=== PATIENT | male | born 1970 | race Caucasian/White ===

== ENCOUNTER 2018-10-08 17:34 | Inpatient (IN) | payer MEDICARE, OTHER ==
[~2018-10-08] VITALS: Ht 177.8 cm; Wt 59.5 kg
[2018-10-08 18:04] VITALS: BP 156/100
[2018-10-08 18:28] LABS: BASOPHILS % (AUTO) 1.3 % (0.0-2.0); EOSINOPHILS % (AUTO) 2.7 % (0.0-3.0); HEMATOCRIT 47.1 % (42.0-52.0); HEMOGLOBIN 15.6 G/DL (14.2-18.0); LYMPHOCYTES % (AUTO) 20.5 % (20.0-45.0); MEAN CORPUSCULAR VOLUME 82 FL (80-99); MONOCYTES % (AUTO) 6.5 % (1.0-10.0); PLATELET COUNT 164 K/UL (150-450); RED BLOOD COUNT 5.73 M/UL (4.70-6.10); RED CELL DISTRIBUTION WIDTH 14.3 % (11.6-14.8); WHITE BLOOD COUNT 4.3 K/UL (4.8-10.8)
[2018-10-08 18:30] LABS: ANION GAP 8 mmol/L (5-15); BLOOD UREA NITROGEN 34 mg/dL (7-18); CALCIUM 8.9 MG/DL (8.5-10.1); CARBON DIOXIDE 27 MMOL/L (21-32); CHLORIDE 101 MMOL/L (98-107); CREATININE 2.1 MG/DL (0.55-1.30); POTASSIUM 4.9 MMOL/L (3.5-5.1); SODIUM 136 MMOL/L (136-145)
[2018-10-08 18:34] LABS: ALANINE AMINOTRANSFERASE 63 U/L (12-78); ALBUMIN 3.3 G/DL (3.4-5.0); ALBUMIN/GLOBULIN RATIO 0.7 (1.0-2.7); ALKALINE PHOSPHATASE 126 U/L (46-116); ASPARTATE AMINO TRANSFERASE 32 U/L (15-37); BILIRUBIN,TOTAL 0.3 MG/DL (0.2-1.0)
--- NOTE | 2018-10-08 18:51 | Emergency Room Report ---
History of Present Illness General Chief Complaint: Abnormal Labs Source: Medical Record, EMS Present Illness HPI This patient presents from a detention facility. He has a history of chronic osteomyelitis, hypertension, bipolar and diabetes. He presents from a detention facility for elevated blood sugar. There are no other complaints. Patient History Past Medical History: see triage record, DM, HTN Social History: Denies: smoking, alcohol use, drug use Reviewed Nursing Documentation: PMH: Agreed; PSxH: Agreed Nursing Documentation-PMH Hx Hypertension: Yes Hx Diabetes: Yes History Of Psychiatric Problem: Yes - bi-polar Review of Systems All Other Systems: negative except mentioned in HPI Physical Exam Vital Signs Date Time Temp Pulse Resp B/P (MAP) Pulse Ox O2 Delivery O2 Flow Rate FiO2 10/08/18 17:27 98.1 66 18 136/80 98 Room Air Sp02 EP Interpretation: reviewed, normal General Appearance: no apparent distress, alert, GCS 15, non-toxic Head: normocephalic, atraumatic Eyes: bilateral eye normal inspection, bilateral eye PERRL ENT: hearing grossly normal, normal pharynx, no angioedema, normal voice Neck: full range of motion, supple/symm/no masses Respiratory: chest non-tender, lungs clear, normal breath sounds, no respiratory distress, no retraction, no accessory muscle use, speaking full sentences Cardiovascular #1: regular rate, rhythm, no edema Gastrointestinal: normal bowel sounds, non tender, soft, non-distended, no guarding, no rebound Rectal: deferred Musculoskeletal: back normal, gait/station normal, normal range of motion, non- tender 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, oriented x3, responsive, motor strength/tone normal, sensory intact, speech normal Psychiatric: judgement/insight normal, memory normal, mood/affect normal, no suicidal/homicidal ideation Skin: normal color, no rash, warm/dry, well hydrated Lymphatic: no adenopathy Medical Decision Making Diagnostic Impression: Primary Impression: Uncontrolled diabetes mellitus Additional Impression: CAMILLE (acute kidney injury) ER Course This patient has uncontrolled diabetes. Per report from the assisted living facility, the patient has had blood sugars in the 400s over the last 2 days. They have been unable to control it. The patient does admit to dietary indiscretion but states that the food given to him at the assisted living facility is not diabetic friendly. Regardless, the patient has uncontrolled diabetes for the past few days and will be admitted for further evaluation and blood sugar control. Laboratory Tests Test 10/08/18 18:00 White Blood Count 4.3 K/UL (4.8-10.8) L Red Blood Count 5.73 M/UL (4.70-6.10) Hemoglobin 15.6 G/DL (14.2-18.0) Hematocrit 47.1 % (42.0-52.0) Mean Corpuscular Volume 82 FL (80-99) Mean Corpuscular Hemoglobin 27.2 PG (27.0-31.0) Mean Corpuscular Hemoglobin Concent 33.1 G/DL (32.0-36.0) Red Cell Distribution Width 14.3 % (11.6-14.8) Platelet Count 164 K/UL (150-450) Mean Platelet Volume 7.1 FL (6.5-10.1) Neutrophils (%) (Auto) 69.0 % (45.0-75.0) Lymphocytes (%) (Auto) 20.5 % (20.0-45.0) Monocytes (%) (Auto) 6.5 % (1.0-10.0) Eosinophils (%) (Auto) 2.7 % (0.0-3.0) Basophils (%) (Auto) 1.3 % (0.0-2.0) Sodium Level 136 MMOL/L (136-145) Potassium Level 4.9 MMOL/L (3.5-5.1) Chloride Level 101 MMOL/L (98-107) Carbon Dioxide Level 27 MMOL/L (21-32) Anion Gap 8 mmol/L (5-15) Blood Urea Nitrogen 34 mg/dL (7-18) H Creatinine 2.1 MG/DL (0.55-1.30) H Estimate Glomerular Filtration Rate 33.7 mL/min (>60) Glucose Level 370 MG/DL (74-106) H Calcium Level 8.9 MG/DL (8.5-10.1) Magnesium Level 1.9 MG/DL (1.8-2.4) Total Bilirubin 0.3 MG/DL (0.2-1.0) Aspartate Amino Transferase (AST) 32 U/L (15-37) Alanine Aminotransferase (ALT) 63 U/L (12-78) Alkaline Phosphatase 126 U/L (46-116) H Total Protein 8.2 G/DL (6.4-8.2) Albumin 3.3 G/DL (3.4-5.0) L Globulin 4.9 g/dL Albumin/Globulin Ratio 0.7 (1.0-2.7) L Acetone Level Negative (NEGATIVE) EKG Diagnostic Results Rate: normal Rhythm: NSR ST Segments: no acute changes Rhythm Strip Diag. Results EP Interpretation: yes Rate: 60's Rhythm: NSR, no PVC's, no ectopy Last Vital Signs Date Time Temp Pulse Resp B/P (MAP) Pulse Ox O2 Delivery O2 Flow Rate FiO2 10/08/18 18:04 97.8 80 18 156/100 100 Room Air Status: improved Disposition: ADMITTED INPATIENT Condition: Serious Monica Bryson DO Oct 08, 2018 18:51
[2018-10-08 19:30] VITALS: BP 164/98
[2018-10-08 21:00] VITALS: BP 160/90
[2018-10-08] MEDS ORDERED: UNOBMED (21:12)
[2018-10-08 21:43] LABS: APPEARANCE,URINE CLEAR; BILIRUBIN, URINE NEGATIVE (NEGATIVE); COLOR,URINE PALE YELLOW; GLUCOSE, URINE (UA) 4+ (NEGATIVE); KETONES,URINE NEGATIVE (NEGATIVE); LEUKOCYTE ESTERASE ,URINE NEGATIVE (NEGATIVE); NITRITE,URINE NEGATIVE (NEGATIVE); PH,URINE 6 (4.5-8.0); PROTEIN,URINE 2+ (NEGATIVE); UROBILINOGEN,URINE NORMAL MG/DL (0.0-1.0)
[2018-10-08 22:48] VITALS: BP 172/97
[2018-10-08] MEDS ORDERED: Lisinopril 10mg tab ORAL ONE (23:45)
[2018-10-09 02:13] VITALS: BP 159/92
[2018-10-09] MEDS ORDERED: cloNIDine 0.2mg Tab ORAL PRN (02:15)
[2018-10-09] MEDS ORDERED: Morphine Sulfate 4mg/ml Inj (IV/IM USE ONLY) IVP PRN (02:15)
[2018-10-09] MEDS ORDERED: Zolpidem 5mg tab ORAL PRN (02:30)
[2018-10-09] MEDS ORDERED: ZOFRAN4 M1 ORAL (02:42)
[2018-10-09] MEDS ORDERED: NOVOLOG100 UNIT/4 SQ (02:42)
[2018-10-09] MEDS ORDERED: LEXAPRO10 MG ORAL (02:42)
[2018-10-09] MEDS ORDERED: ATORVASTATIN CA10 MG ORAL (02:42)
[2018-10-09] MEDS ORDERED: SEROQUEL50 MG ORAL (02:42)
[2018-10-09] MEDS ORDERED: LEVEMIR100 UNIT/1 SUBQ (02:42)
[2018-10-09] MEDS ORDERED: GABAPENTIN100 MG ORAL (02:46)
[2018-10-09] MEDS: Norco 5mg/325mg tab ORAL PRN (03:17)
[2018-10-09 04:00] VITALS: BP_SYST 126; BP_SYST 85; BP_DIAS 85; BP_DIAS 92
[2018-10-09] MEDS ORDERED: MULTIVITAMINS1 EAC8 ORAL (05:01)
[2018-10-09] MEDS ORDERED: MILK OF MA400 MG/51 ORAL (05:01)
[2018-10-09] MEDS ORDERED: RANITIDINE HCL150 M2 PO (05:01)
[2018-10-09] MEDS ORDERED: LOPERAMIDE2 M1 PO (05:01)
[2018-10-09] MEDS ORDERED: DOCUSATE SODIU100 MG ORAL (05:01)
[2018-10-09] MEDS ORDERED: VITAMIN C250 MG ORAL (05:01)
[2018-10-09] MEDS ORDERED: LIPITOR40 MG ORAL (05:05)
[2018-10-09] MEDS ORDERED: ZOFRAN4 M3 ORAL (05:05)
[2018-10-09] MEDS ORDERED: LISINOPRIL20 MG ORAL (05:05)
[2018-10-09] MEDS ORDERED: NEURONTIN100 MG ORAL (05:07)
[2018-10-09] MEDS ORDERED: SEROQUEL100 MG ORAL (05:07)
[2018-10-09] MEDS ORDERED: Milk of Magnesia 30ml Ud ORAL PRN (05:15)
[2018-10-09 06:24] LABS: BASOPHILS % (AUTO) 0.7 % (0.0-2.0); EOSINOPHILS % (AUTO) 2.7 % (0.0-3.0); HEMATOCRIT 42.7 % (42.0-52.0); HEMOGLOBIN 14.3 G/DL (14.2-18.0); LYMPHOCYTES % (AUTO) 16.8 % (20.0-45.0); MEAN CORPUSCULAR VOLUME 83 FL (80-99); MONOCYTES % (AUTO) 5.3 % (1.0-10.0); NEUTROPHILS % (AUTO) 74.4 % (45.0-75.0); PLATELET COUNT 162 K/UL (150-450); RED BLOOD COUNT 5.17 M/UL (4.70-6.10); RED CELL DISTRIBUTION WIDTH 13.9 % (11.6-14.8); WHITE BLOOD COUNT 6.7 K/UL (4.8-10.8)
[2018-10-09] MEDS: HydrALAZINE 25mg tab ORAL SCH ×3 (06:37→21:20)
[2018-10-09] MEDS: NovoLOG Insulin Flexpen SUBQ SCH ×7 (06:39→21:19)
[2018-10-09 06:50] LABS: ALANINE AMINOTRANSFERASE 55 U/L (12-78); ALBUMIN 2.8 G/DL (3.4-5.0); ALBUMIN/GLOBULIN RATIO 0.7 (1.0-2.7); ALKALINE PHOSPHATASE 109 U/L (46-116); ANION GAP 5 mmol/L (5-15); ASPARTATE AMINO TRANSFERASE 28 U/L (15-37); BILIRUBIN,TOTAL 0.3 MG/DL (0.2-1.0); BLOOD UREA NITROGEN 29 mg/dL (7-18); CALCIUM 8.1 MG/DL (8.5-10.1); CARBON DIOXIDE 28 MMOL/L (21-32); CHLORIDE 104 MMOL/L (98-107); CREATININE 1.8 MG/DL (0.55-1.30); POTASSIUM 5.1 MMOL/L (3.5-5.1); SODIUM 137 MMOL/L (136-145)
[2018-10-09 08:00] VITALS: BP 138/79
[2018-10-09] MEDS: Lisinopril 20mg tab ORAL SCH (08:17)
[2018-10-09] MEDS: Docusate 100mg cap ORAL SCH ×2 (08:17→17:23)
[2018-10-09] MEDS: Multivitamin w/Minerals tab ORAL SCH ×2 (08:18→17:23)
[2018-10-09] MEDS: Enoxaparin 40mg Inj SUBQ SCH ×2 (08:20→08:26)
[2018-10-09] MEDS ORDERED: Ascorbic Acid 500mg tab ORAL SCH (09:00)
[2018-10-09 11:55] VITALS: BP 147/79
--- NOTE | 2018-10-09 13:32 | Consultation ---
Consult Note Assessment/Plan A./ 1) DM foot ulcer left foot 2) Uncontrolled DM HgA1c= 11.2 3) DM neuropathy 4) left partial foot amp - healed 5) Partial right hallux amp - healed P/ 1) Cont current wound care 2) Dietary recs appreciated. Strict glycemic control needed for optimal wound healing 3) ESR, CRP to evaluate for possible OM 4) Cont offloading shoes/boot 5) Will follow Thank you Carlos Sevilla DPM Oct 09, 2018 13:32
[2018-10-09 16:00] VITALS: BP 141/78
--- NOTE | 2018-10-09 17:40 | Cardiology Report ---
APPROVED REPORT EKG Measurement Heart [id number] Normal sinus rhythm Lateral infarct, age undetermined Abnormal ECG
--- NOTE | 2018-10-09 19:49 | History & Physical ---
History and Physical History & Physicial Dictation completed. comment: time of this dictation , does not reflect actual time of the encounter Dexter Haas MD Oct 09, 2018 19:49
--- NOTE | 2018-10-09 19:51 | General Progress Note ---
Assessment/Plan Status: stable Assessment/Plan Full Dictation in progress A/P: 1- DM-2 uncontrolled 2- Non compliance with diet 3- Charcot foot Plan: will optimize insulin regiments Endo consulted Subjective Allergies: Coded Allergies: METFORMIN (Verified Allergy, Unknown, 10/09/18) Vomiting Objective Last 24 Hour Vital Signs Date Time Temp Pulse Resp B/P (MAP) Pulse Ox O2 Delivery O2 Flow Rate FiO2 10/09/18 16:00 97.8 76 19 141/78 (99) 94 10/09/18 13:58 134/82 10/09/18 11:55 97.6 78 20 147/79 (101) 93 10/09/18 08:17 138/79 10/09/18 08:00 97.8 79 20 138/79 (98) 92 10/09/18 07:59 Room Air 10/09/18 06:37 136/76 10/09/18 04:00 98.1 81 18 126/85 (99) 97 10/09/18 03:25 Room Air 10/09/18 02:13 98.2 91 20 159/92 (114) 97 10/08/18 23:42 196/105 10/08/18 22:48 98.2 68 16 172/97 99 Room Air 10/08/18 21:00 97.4 70 15 160/90 96 Room Air Intake and Output 10/08/18 10/09/18 19:00 07:00 Intake Total 6480 ml Balance 6480 ml Intake Oral 480 ml IV Total 6000 ml # Voids 1 Laboratory Tests 10/08/18 21:35: Urine Color Pale yellow, Urine Appearance Clear, Urine pH 6, Urine Specific [place] 1.010, Urine Protein 2+H, Urine Glucose (UA) 4+H, Urine Ketones Negative , Urine Blood Negative, Urine Nitrite Negative, Urine Bilirubin Negative, Urine Urobilinogen Normal, Urine Leukocyte Esterase Negative, Urine RBC 2-4H, Urine WBC 0-2, Urine Squamous Epithelial Cells None, Urine Bacteria Few 10/09/18 05:10: White Blood Count 6.7#, Red Blood Count 5.17, Hemoglobin 14.3, Hematocrit 42.7, Mean Corpuscular Volume 83, Mean Corpuscular Hemoglobin 27.7, Mean Corpuscular Hemoglobin Concent 33.5, Red Cell Distribution Width 13.9, Platelet Count 162, Mean Platelet Volume 6.2L, Neutrophils (%) (Auto) 74.4, Lymphocytes (%) (Auto) 16.8L, Monocytes (%) (Auto) 5.3, Eosinophils (%) (Auto) 2.7, Basophils (%) (Auto ) 0.7, Erythrocyte Sedimentation Rate 24H, Sodium Level 137, Potassium Level 5.1 , Chloride Level 104, Carbon Dioxide Level 28, Anion Gap 5, Blood Urea Nitrogen 29H, Creatinine 1.8H, Estimat Glomerular Filtration Rate 40.3, Glucose Level 369H, Hemoglobin A1c 11.2H, Calcium Level 8.1L, Total Bilirubin 0.3, Aspartate Amino Transf (AST/SGOT) 28, Alanine Aminotransferase (ALT/SGPT) 55, Alkaline Phosphatase 109, Total Protein 6.9, Albumin 2.8L, Globulin 4.1, Albumin/ Globulin Ratio 0.7L 10/09/18 05:20: C-Reactive Protein, Quantitative 1.0H Height (Feet): 5 Height (Inches): 10.00 Weight (Pounds): 131 Dexter Haas MD Oct 09, 2018 19:51
[2018-10-09 20:00] VITALS: BP 102/49
[2018-10-09] MEDS ORDERED: Levemir Flexpen SUBQ SCH ×2 (21:00)
[2018-10-09] MEDS: Atorvastatin 20mg tab ORAL SCH (21:11)
--- NOTE | 2018-10-09 21:30 | Consultation ---
DATE OF CONSULTATION: 10/09/2018 CONSULTING PHYSICIAN: Carlos Soto D.P.M. REQUESTING PHYSICIAN: Dexter Haas M.D. REASON FOR CONSULTATION: Diabetic foot ulcer. HISTORY OF PRESENT ILLNESS: The patient is a 47-year-old male who was admitted to [facility] on October 08, 2018 for hyperglycemia. The patient is known to my service from previous admission to [facility] [place]. The patient is being followed by , wound doctor at his [facility] facility for continued care there. Admits that sugars are out of control and admits to using offloading shoes when ambulating. PAST MEDICAL HISTORY: Significant for uncontrolled diabetes and acute kidney injury. ALLERGIES: He is allergic to metformin. MEDICATIONS: Per MAR and include Lovenox, Neurontin, ascorbic acid, Tylenol, and [place]. FAMILY HISTORY: Noncontributory. SOCIAL HISTORY: Noncontributory. REVIEW OF SYSTEMS: HEENT: The patient denies any headaches, blurred vision, or ringing in the ears. CARDIORESPIRATORY: The patient denies any chest pain or shortness of breath. GENITOURINARY: The patient denies any urgency, frequency, burning upon urination, or hematuria. GASTROINTESTINAL: The patient denies any constipation, diarrhea, or blood in the stool. PHYSICAL EXAMINATION: LOWER EXTREMITY: Vascular, 1+ palpable dorsalis pedis arteries, bilateral and 2+ posterior tibial arteries, bilateral. Feet are equally warm. There is chronic nonpitting edema noted bilaterally. No cyanosis noted to the toes. DERMATOLOGICAL: There is a full-thickness ulceration noted on the plantar aspect of the left foot. No bone or tendon is exposed. No signs of acute infection are noted. Mild serous drainage is noted from the site. Wound base is granular. No periwound erythema is noted. No malodor is noted. No other open wounds are noted. MUSCULOSKELETAL: There is partial lateral amputation noted at the left foot, which is healed. There is also a partial right hallux amputation noted on the right foot, which is healed. Also noted that left foot has rockerbottom position. No other gross deformities are noted. NEUROLOGICAL: Protective threshold is absent. LABORATORY AND DIAGNOSTIC DATA: White blood cell count is 6.7, hemoglobin and hematocrit are 14.3 and 42.7, and platelet count is 162,000. Potassium is 5.1, BUN is 29, and creatinine is 1.8. Hemoglobin A1c is 11.2. Albumin is 2.8. No lower extremity imaging is noted. ASSESSMENT: 1. Diabetic foot ulcer, left foot. 2. Uncontrolled diabetes mellitus with a hemoglobin A1c of 11.2. 3. Diabetic neuropathy. 4. Left partial foot amputation, healed. 5. Partial right hallux amputation, healed. PLAN: 1. Continue wound care as ordered. 2. Dietary Kt appreciated and strict glycemic control as needed for optimal wound healing. 3. We will order a sedimentation rate and CRP to evaluate for possible osteomyelitis. 4. Continue offloading shoes/boot. 5. We will follow during his hospital course. Thank you for the courtesy of this consultation, Dr. Haas. Carlos Soto D.P.M. DR: MARQUISE JOB#: [id number] CC:
--- NOTE | 2018-10-10 02:00 | History and Physical Report ---
DATE OF ADMISSION: 10/08/2018 NOTE: INCOMPLETE DICTATION SOURCE OF INFORMATION: The patient and EMR. HISTORY OF PRESENT ILLNESS: The patient is a 47-year-old male with a history of uncontrolled diabetes with Charcot foot, who was referred from the [facility] facility secondary to uncontrolled diabetes. The patient reportedly is noncompliant with the diet. The patient reportedly had been particularly noncompliant with low sugar diet and had been taking double and at times triple portion diet/meals. Reportedly, the patient had recorded blood sugar number of 470, and therefore had been requested to be transferred to the hospital for the additional evaluation and better optimization of diabetes regimens. SOCIAL HISTORY: The patient denies history of smoking or alcohol abuse. PAST MEDICAL AND SURGICAL HISTORY: Including but not limited to uncontrolled diabetes, hypertension, noncompliance with the diet, bipolar disorder, Charcot foot, tarsometatarsal amputation, chronic kidney disease, and liver disease. FAMILY HISTORY: Reviewed and noncontributory. MEDICATIONS: Current hospital medications including, but not limited to, sliding scale insulin, NovoLog 10 units at mealtime, Lantus. PHYSICAL EXAMINATION: VITAL SIGNS: Blood pressure 135/80, temperature 98.2, pulse oximetry 98% on room air, and respiratory rate 18. HEAD AND NECK: Atraumatic and normocephalic. CHEST: Clear to auscultation. No wheezing. No crackles. HEART: S1 and S2. Regular rate and rhythm. No S3. No S4. ABDOMEN: Soft. No organomegaly. MUSCULOSKELETAL: Positive for Charcot's foot. Positive for stump of the prior tarsometatarsal resections. NEUROLOGIC: The patient is awake, alert, and oriented x3. PSYCHIATRIC: Mood and affect is elated. LABORATORY DATA: Dated reviewed A/P: 1- Hyper Osmolar Non Ketotic Acidosis, secondary to #2 2- Non compliance with medications 3- Charcot Foot 4- HTN 5- Psych Plan: Endo consulted will resume [facility] medications Had detailed conversation with patient regarding Compliance issue Dexter Haas M.D. DR: MIRIAN JOB#: [id number] CC: JOVON
[2018-10-10 04:00] VITALS: BP 141/84
[2018-10-10] MEDS: HydrALAZINE 25mg tab ORAL SCH ×3 (07:00→21:25)
[2018-10-10] MEDS: NovoLOG Insulin Flexpen SUBQ SCH ×7 (07:01→21:30)
[2018-10-10 08:00] VITALS: BP 137/76
[2018-10-10] MEDS: Enoxaparin 40mg Inj SUBQ SCH (09:00)
[2018-10-10] MEDS: Multivitamin w/Minerals tab ORAL SCH ×2 (09:00→18:00)
[2018-10-10] MEDS: Docusate 100mg cap ORAL SCH ×2 (09:00→18:00)
[2018-10-10] MEDS: Lisinopril 20mg tab ORAL SCH (09:09)
[2018-10-10] MEDS: Ascorbic Acid 500mg tab ORAL SCH (09:09)
--- NOTE | 2018-10-10 11:26 | General Progress Note ---
Assessment/Plan Assessment/Plan S: I am ok O: appears comfortable, still non compliant with diet PHYSICAL EXAMINATION: VITAL SIGNS: HEAD AND NECK: Atraumatic and normocephalic. CHEST: Clear to auscultation. No wheezing. No crackles. HEART: S1 and S2. Regular rate and rhythm. No S3. No S4. ABDOMEN: Soft. No organomegaly. MUSCULOSKELETAL: Positive for Charcot's foot. Positive for stump of the prior tarsometatarsal resections.NEUROLOGIC: The patient is awake, alert, and oriented x3. PSYCHIATRIC: Mood and affect is elated. LABORATORY DATA: Dated reviewed A/P: 1- Hyper Osmolar Non Ketotic Acidosis, secondary to #2 2- Non compliance with medications 3- Charcot Foot 4- HTN 5- Psych Plan: Will optimise Insulin regiments. Sub optimal , secondary to his non compliance again, I Had detailed conversation with patient regarding Compliance issue Subjective Allergies: Coded Allergies: METFORMIN (Verified Allergy, Unknown, 10/09/18) Vomiting Objective Last 24 Hour Vital Signs Date Time Temp Pulse Resp B/P (MAP) Pulse Ox O2 Delivery O2 Flow Rate FiO2 10/10/18 09:09 137/76 10/10/18 09:00 Room Air 10/10/18 08:00 98.1 73 21 137/76 (96) 94 10/10/18 07:00 141/84 10/10/18 04:00 98.5 69 18 141/84 (103) 96 10/09/18 21:20 102/49 10/09/18 21:00 Room Air 10/09/18 20:00 98.1 71 18 102/49 (66) 94 10/09/18 16:00 97.8 76 19 141/78 (99) 94 10/09/18 13:58 134/82 10/09/18 11:55 97.6 78 20 147/79 (101) 93 Intake and Output 10/09/18 10/10/18 18:59 06:59 Intake Total 880 ml Balance 880 ml Intake Oral 880 ml # Voids 4 Height (Feet): 5 Height (Inches): 10.00 Weight (Pounds): 131 Dexter Haas MD Oct 10, 2018 11:26
[2018-10-10 12:00] VITALS: BP 148/91
[2018-10-10 12:29] LABS: BASOPHILS % (AUTO) 0.8 % (0.0-2.0); EOSINOPHILS % (AUTO) 2.9 % (0.0-3.0); HEMATOCRIT 44.6 % (42.0-52.0); HEMOGLOBIN 14.3 G/DL (14.2-18.0); LYMPHOCYTES % (AUTO) 23.9 % (20.0-45.0); MEAN CORPUSCULAR VOLUME 82 FL (80-99); MONOCYTES % (AUTO) 6.9 % (1.0-10.0); NEUTROPHILS % (AUTO) 65.5 % (45.0-75.0); PLATELET COUNT 153 K/UL (150-450); RED BLOOD COUNT 5.44 M/UL (4.70-6.10); WHITE BLOOD COUNT 4.9 K/UL (4.8-10.8)
[2018-10-10 12:56] LABS: ALANINE AMINOTRANSFERASE 60 U/L (12-78); ALBUMIN 3.2 G/DL (3.4-5.0); ALBUMIN/GLOBULIN RATIO 0.7 (1.0-2.7); ALKALINE PHOSPHATASE 115 U/L (46-116); ANION GAP 5 mmol/L (5-15); ASPARTATE AMINO TRANSFERASE 35 U/L (15-37); BILIRUBIN,TOTAL 0.2 MG/DL (0.2-1.0); BLOOD UREA NITROGEN 32 mg/dL (7-18); CALCIUM 8.7 MG/DL (8.5-10.1); CARBON DIOXIDE 30 MMOL/L (21-32); CHLORIDE 100 MMOL/L (98-107); CREATININE 1.7 MG/DL (0.55-1.30); POTASSIUM 4.5 MMOL/L (3.5-5.1); SODIUM 135 MMOL/L (136-145)
[2018-10-10 16:00] VITALS: BP 153/90
[2018-10-10 21:00] VITALS: BP 123/75
[2018-10-10] MEDS ORDERED: Levemir Flexpen SUBQ SCH (21:00)
[2018-10-10] MEDS: Atorvastatin 20mg tab ORAL SCH (21:25)
[2018-10-11] MEDS: Norco 5mg/325mg tab ORAL PRN ×2 (02:58→09:07)
--- NOTE | 2018-10-11 06:17 | Consultation ---
Consult Note Consult Note [id number] Job ID Greatly appreciate consultation! James Rushing MD Oct 11, 2018 06:17
[2018-10-11] MEDS: HydrALAZINE 25mg tab ORAL SCH ×3 (06:32→21:22)
[2018-10-11] MEDS: NovoLOG Insulin Flexpen SUBQ SCH ×7 (07:37→21:20)
[2018-10-11 08:08] VITALS: BP 152/96
[2018-10-11] MEDS: Docusate 100mg cap ORAL SCH ×2 (08:55→17:21)
[2018-10-11] MEDS: Ascorbic Acid 500mg tab ORAL SCH ×2 (08:55→09:00)
[2018-10-11] MEDS: Multivitamin w/Minerals tab ORAL SCH ×3 (08:56→17:21)
[2018-10-11] MEDS: Lisinopril 20mg tab ORAL SCH (08:56)
[2018-10-11] MEDS: Enoxaparin 40mg Inj SUBQ SCH (08:57)
[2018-10-11 10:10] LABS: BASOPHILS % (AUTO) 0.8 % (0.0-2.0); EOSINOPHILS % (AUTO) 3.4 % (0.0-3.0); HEMATOCRIT 41.8 % (42.0-52.0); LYMPHOCYTES % (AUTO) 19.7 % (20.0-45.0); MEAN CORPUSCULAR VOLUME 81 FL (80-99); MONOCYTES % (AUTO) 6.7 % (1.0-10.0); NEUTROPHILS % (AUTO) 69.4 % (45.0-75.0); PLATELET COUNT 144 K/UL (150-450); RED BLOOD COUNT 5.17 M/UL (4.70-6.10); WHITE BLOOD COUNT 5.4 K/UL (4.8-10.8)
[2018-10-11 10:35] LABS: ALANINE AMINOTRANSFERASE 57 U/L (12-78); ALBUMIN 3.1 G/DL (3.4-5.0); ALBUMIN/GLOBULIN RATIO 0.7 (1.0-2.7); ALKALINE PHOSPHATASE 111 U/L (46-116); ANION GAP 9 mmol/L (5-15); ASPARTATE AMINO TRANSFERASE 31 U/L (15-37); BILIRUBIN,TOTAL 0.3 MG/DL (0.2-1.0); BLOOD UREA NITROGEN 37 mg/dL (7-18); CALCIUM 8.7 MG/DL (8.5-10.1); CARBON DIOXIDE 26 MMOL/L (21-32); CHLORIDE 100 MMOL/L (98-107); CREATININE 1.9 MG/DL (0.55-1.30); POTASSIUM 4.5 MMOL/L (3.5-5.1); SODIUM 135 MMOL/L (136-145)
--- NOTE | 2018-10-11 11:56 | General Progress Note ---
Assessment/Plan Assessment/Plan S: I have pain in my legs O: appears comfortable, still non compliant with diet. ambulates using her walker PHYSICAL EXAMINATION: VITAL SIGNS: HEAD AND NECK: Atraumatic and normocephalic. CHEST: Clear to auscultation. No wheezing. No crackles. HEART: S1 and S2. Regular rate and rhythm. No S3. No S4. ABDOMEN: Soft. No organomegaly. MUSCULOSKELETAL: Positive for Charcot's foot. Positive for stump of the prior tarsometatarsal resections.NEUROLOGIC: The patient is awake, alert, and oriented x3. PSYCHIATRIC: Mood and affect is elated. LABORATORY DATA: Dated reviewed A/P: 1- Hyper Osmolar Non Ketotic Acidosis, secondary to #2, #3 2. Brittle DM-2 , uncontrolled, multi factorial 2- Non compliance with medications 3- Charcot Foot 4- HTN 5- Psych Plan: Will optimize Insulin regiments. Sub optimal , secondary to his non compliance Endo supervise and optimize insulin regiment again, I Had detailed conversation with patient regarding Compliance issue Subjective Allergies: Coded Allergies: METFORMIN (Verified Allergy, Unknown, 10/09/18) Vomiting Objective Last 24 Hour Vital Signs Date Time Temp Pulse Resp B/P (MAP) Pulse Ox O2 Delivery O2 Flow Rate FiO2 10/11/18 09:37 97.1 10/11/18 08:56 152/96 10/11/18 08:08 97.1 73 20 152/96 (114) 94 10/10/18 21:25 123/75 10/10/18 21:00 Room Air 10/10/18 21:00 97.8 73 18 123/75 (91) 95 10/10/18 16:00 98.5 83 18 153/90 (111) 93 10/10/18 14:21 148/91 10/10/18 12:00 98.0 68 20 148/91 (110) 94 Intake and Output 10/10/18 10/11/18 18:59 06:59 Intake Total 118 ml Output Total 2500 ml Balance -2382 ml Intake Oral 118 ml Output Urine Total 2500 ml # Voids 2 Laboratory Tests 10/11/18 09:45: White Blood Count 5.4, Red Blood Count 5.17, Hemoglobin 14.0L, Hematocrit 41.8L , Mean Corpuscular Volume 81, Mean Corpuscular Hemoglobin 27.1, Mean Corpuscular Hemoglobin Concent 33.5, Red Cell Distribution Width 14.0, Platelet Count 144L, Mean Platelet Volume 6.4L, Neutrophils (%) (Auto) 69.4, Lymphocytes (%) (Auto) 19.7L, Monocytes (%) (Auto) 6.7, Eosinophils (%) (Auto) 3.4H, Basophils (%) (Auto) 0.8, Sodium Level 135L, Potassium Level 4.5, Chloride Level 100, Carbon Dioxide Level 26, Anion Gap 9, Blood Urea Nitrogen 37H, Creatinine 1.9H, Estimat Glomerular Filtration Rate 37.9, Glucose Level 332H, Calcium Level 8.7, Total Bilirubin 0.3, Aspartate Amino Transf (AST/SGOT) 31, Alanine Aminotransferase (ALT/SGPT) 57, Alkaline Phosphatase 111, Total Protein 7.6, Total Protein (PEP) [Pending], Albumin 3.1L, Albumin (PEP) [Pending], Globulin 4.5, Globulin (PEP) [Pending], Albumin/Globulin Ratio [Pending], Alpha- 1-Globulins [Pending], Qpzzo-4-Cepjwvrqo [Pending], Beta Globulins [Pending], Beta Gamma Globulin [Pending], PEP Abnormal Protein Bands [Pending], Protein Electrophoresis Interpret [Pending] Height (Feet): 5 Height (Inches): 10.00 Weight (Pounds): 131 Dexter Haas MD Oct 11, 2018 11:56
[2018-10-11 12:16] VITALS: BP 149/89
[2018-10-11] MEDS ORDERED: BESIVANCE LEFT EYE (12:26)
[2018-10-11] MEDS ORDERED: LOTEMAX1 DROP LEFT EYE (12:26)
[2018-10-11 16:00] VITALS: BP 120/68
--- NOTE | 2018-10-11 17:15 | Consultation ---
DATE OF CONSULTATION: 10/11/2018 HEMATOLOGY/ONCOLOGY CONSULTATION CONSULTING PHYSICIAN: James Rushing M.D. REQUESTING PHYSICIAN: Dexter Haas M.D. REASON FOR CONSULTATION: Evaluation of protein albumin dissociation. IDENTIFYING DATA: The patient is a 47-year-old male with past medical history significant for hyperglycemia, has a history of Charcot foot, and has a history of poorly controlled diabetes. I have discussed with him in regards to kidney injury, potential need for dialysis in the future if it is out of control, diabetes continues to persist, and noted to have an elevated protein, decreased albumin, left diabetic foot, diabetic neuropathy, left foot partial amputation healed, and partial right hallux amputation, healed. Hematology Service consulted for further evaluation and treatment. PAST MEDICAL HISTORY: Uncontrolled diabetes, hypertension, noncompliant with diet, bipolar disorder, Charcot foot, metatarsal amputation, and CKD. ALLERGIES: Allergy to metformin. SOCIAL HISTORY: Denies any alcohol, tobacco, or illicit drug use. FAMILY HISTORY: Noncontributory. MEDICATIONS: Have been reviewed. There is no longer insulin sliding scale. REVIEW OF SYSTEMS: CONSTITUTIONAL: No fevers, chills, or night sweats. SKIN: No rashes, bumps, or itching. HEENT: No headache, hearing, or visual changes. BREASTS: No lumps, pain, or discharge. PULMONARY: No cough, sputum, or shortness of breath. GASTROINTESTINAL: No nausea, vomiting, or diarrhea. GENITOURINARY: No dysuria, frequency, or urgency. MUSCULOSKELETAL: No joint swelling, muscle pain, or trauma. PHYSICAL EXAMINATION: VITAL SIGNS: Reviewed, currently stable. GENERAL: No acute distress. PULMONARY: Decreased breath sounds. CARDIOVASCULAR: Regular rate. No S3 or S4. ABDOMEN: Soft, nontender, and nondistended. EXTREMITIES: No cyanosis noted. Positive for Charcot foot. Positive for stump of the prior tarsometatarsal resection. NEUROLOGICAL: Grossly nonfocal. Alert and oriented x3. LABORATORY DATA: WBC of 4.9, hemoglobin 14.3, and platelet count 153,000. Chemistry reviewed, BUN of 32, creatinine 1.7, and blood sugar again . Lifetime summary reviewed in addition to chemistry, A1c, and creatinine of 11.2 that was done several days ago. ASSESSMENT AND RECOMMENDATIONS: 1. Protein albumin dissociation. Obtain serum protein electrophoresis. In addition, CRP was elevated. 2. Diabetes mellitus, poorly controlled diabetes, nonketotic acidosis. Recommend insulin sliding scale in addition to Accu-Chek before meals and at bedtime. 3. Noncompliance of medications. to become more compliant. Given potential need for dialysis in the future if his creatinine continues to worsen and kidney function continues to worsen. 4. Charcot foot. Monitor per Podiatry. 5. Hypertension. Systolic blood pressure goal is 140. 6. Bipolar disorder per Psychiatry. I appreciate the consultation. James Rushing M.D. DR: MARIA L JOB#: [id number] CC:
[2018-10-11 20:00] VITALS: BP 134/84
[2018-10-11 20:40] VITALS: BP 134/84
[2018-10-11] MEDS ORDERED: Levemir Flexpen SUBQ SCH (21:00)
[2018-10-11] MEDS: Atorvastatin 20mg tab ORAL SCH (21:21)
[2018-10-12] VITALS: BP 121/67
[2018-10-12] MEDS: HydrALAZINE 25mg tab ORAL SCH ×2 (06:00→14:00)
--- NOTE | 2018-10-12 07:01 | General Progress Note ---
Assessment/Plan Problem List: (1) Uncontrolled diabetes mellitus ICD Codes: E11.65 - Type 2 diabetes mellitus with hyperglycemia SNOMED: 250034962, 41674423 (2) CAMILLE (acute kidney injury) ICD Codes: N17.9 - Acute kidney failure, unspecified SNOMED: 99613093, [id number] Assessment/Plan Levemir increased to 54 units qhs Novolog increased to 22 units ac tid continue NISS Subjective ROS Limited/Unobtainable: Yes Allergies: Coded Allergies: METFORMIN (Verified Allergy, Unknown, 10/09/18) Vomiting Subjective he is resting and does not want to be disturbed refused glucose check this morning - he wants it to be done later when he wakes up Objective Last 24 Hour Vital Signs Date Time Temp Pulse Resp B/P (MAP) Pulse Ox O2 Delivery O2 Flow Rate FiO2 10/12/18 00:00 97.9 77 18 121/67 (85) 94 10/11/18 21:22 134/84 10/11/18 21:00 Room Air 10/11/18 20:40 97.8 78 19 134/84 (101) 95 10/11/18 20:00 97.8 78 19 134/84 (101) 95 10/11/18 16:00 97.8 75 20 120/68 (85) 98 10/11/18 13:43 149/89 10/11/18 12:16 98.0 82 20 149/89 (109) 96 10/11/18 09:37 97.1 10/11/18 09:00 Room Air 10/11/18 08:56 152/96 10/11/18 08:08 97.1 73 20 152/96 (114) 94 Intake and Output 10/11/18 10/12/18 19:00 07:00 Intake Total 720 ml Balance 720 ml Intake Oral 720 ml # Voids 2 Laboratory Tests 10/11/18 09:45: White Blood Count 5.4, Red Blood Count 5.17, Hemoglobin 14.0L, Hematocrit 41.8L , Mean Corpuscular Volume 81, Mean Corpuscular Hemoglobin 27.1, Mean Corpuscular Hemoglobin Concent 33.5, Red Cell Distribution Width 14.0, Platelet Count 144L, Mean Platelet Volume 6.4L, Neutrophils (%) (Auto) 69.4, Lymphocytes (%) (Auto) 19.7L, Monocytes (%) (Auto) 6.7, Eosinophils (%) (Auto) 3.4H, Basophils (%) (Auto) 0.8, Sodium Level 135L, Potassium Level 4.5, Chloride Level 100, Carbon Dioxide Level 26, Anion Gap 9, Blood Urea Nitrogen 37H, Creatinine 1.9H, Estimat Glomerular Filtration Rate 37.9, Glucose Level 332H, Calcium Level 8.7, Total Bilirubin 0.3, Aspartate Amino Transf (AST/SGOT) 31, Alanine Aminotransferase (ALT/SGPT) 57, Alkaline Phosphatase 111, Total Protein 7.6, Total Protein (PEP) [Pending], Albumin 3.1L, Albumin (PEP) [Pending], Globulin 4.5, Globulin (PEP) [Pending], Albumin/Globulin Ratio [Pending], Alpha- 1-Globulins [Pending], Kkznf-1-Bdgfanqhc [Pending], Beta Globulins [Pending], Beta Gamma Globulin [Pending], PEP Abnormal Protein Bands [Pending], Protein Electrophoresis Interpret [Pending] Height (Feet): 5 Height (Inches): 10.00 Weight (Pounds): 131 General Appearance: no apparent distress Neck: normal alignment Cardiovascular: normal rate Respiratory/Chest: lungs clear Abdomen: normal bowel sounds Objective Current Medications Medications (Trade) Dose Ordered Sig/Aylin Route PRN Reason Start Time Stop Time Status Last Admin Dose Admin Acetaminophen (Tylenol) 650 mg Q6H PRN ORAL Mild Pain/Temp > 100.5 10/09/18 02:15 11/08/18 02:14 10/10/18 07:02 Acetaminophen/ Hydrocodone Bitart (Handley 5/325) 1 tab Q4H PRN ORAL Moderate Pain (Pain Scale 4-6) 10/09/18 02:15 10/16/18 02:14 10/11/18 09:07 Ascorbic Acid (Vitamin C) 500 mg DAILY ORAL 10/10/18 09:00 11/09/18 08:59 10/10/18 09:09 Atorvastatin Calcium (Lipitor) 40 mg BEDTIME ORAL 10/09/18 21:00 11/08/18 20:59 10/11/18 21:21 Clonidine HCl (Catapres tab) 0.2 mg Q8H PRN ORAL For High Blood Pressure 10/09/18 02:15 11/08/18 02:14 Dextrose (Dextrose 50%) 25 ml Q30M PRN IV Hypoglycemia 10/09/18 02:15 11/08/18 02:14 Dextrose (Dextrose 50%) 50 ml Q30M PRN IV Hypoglycemia 10/09/18 02:15 11/08/18 02:14 Docusate Sodium (Colace) 100 mg TWICE A DAY ORAL 10/09/18 09:00 11/08/18 08:59 10/11/18 08:55 Enoxaparin Sodium (Lovenox) 40 mg DAILY SUBQ 10/09/18 09:00 11/08/18 08:59 10/11/18 08:57 Escitalopram Oxalate (Lexapro) 10 mg DAILY ORAL 10/09/18 09:00 11/08/18 08:59 10/11/18 09:08 Gabapentin (Neurontin) 300 mg THREE TIMES A DAY ORAL 10/09/18 09:00 11/08/18 08:59 10/11/18 17:21 Hydralazine HCl (Apresoline) 25 mg Q8HR ORAL 10/09/18 06:00 11/08/18 05:59 10/11/18 21:22 Insulin Aspart (NovoLOG) BEFORE MEALS AND HS SUBQ 10/09/18 06:30 11/08/18 06:29 10/11/18 21:20 Insulin Aspart (NovoLOG) 22 units NOVOTIAC SUBQ 10/12/18 06:30 11/08/18 06:29 Insulin Detemir (Levemir) 54 units BEDTIME SUBQ 10/11/18 21:00 11/08/18 20:59 10/11/18 21:21 Lisinopril (Prinivil) 20 mg DAILY ORAL 10/09/18 09:00 11/08/18 08:59 10/11/18 08:56 Magnesium Hydroxide (Mom) 30 ml DAILY PRN ORAL Constipation 10/09/18 05:15 11/08/18 05:14 Morphine Sulfate (Morphine Sulfate) 3 mg Q6H PRN IVP Severe Pain (Pain Scale 7-10) 10/09/18 02:15 10/16/18 02:14 Multivitamins Therapeutic (Therapeutic Multivitamin) 1 ea BID ORAL 10/09/18 09:00 11/08/18 08:59 10/09/18 17:23 Non-Formulary Medication (Non-Formulary Med) 1 ea DAILY ORAL 10/11/18 12:45 11/10/18 12:44 UNV Ondansetron HCl (Zofran) 4 mg Q8H PRN ORAL Nausea & Vomiting 10/09/18 05:15 11/08/18 05:14 Pantoprazole (Protonix) 40 mg DAILY ORAL 10/09/18 09:00 11/08/18 08:59 10/11/18 08:55 Quetiapine Fumarate (SEROquel) 100 mg TWICE A DAY ORAL 10/09/18 09:00 11/08/18 08:59 10/11/18 17:21 Zolpidem Tartrate (Ambien) 5 mg HSPRN PRN ORAL Insomnia 10/09/18 02:30 10/16/18 02:29 Item Value Date Time Bedside Blood Glucose 238 mg/dl H 10/11/18 2121 Bedside Blood Glucose 315 mg/dl H 10/11/18 1720 Bedside Blood Glucose 289 mg/dl H 10/11/18 1153 Bedside Blood Glucose 290 mg/dl H 10/11/18 0737 Binh Borges MD Oct 12, 2018 07:01
[2018-10-12] MEDS: NovoLOG Insulin Flexpen SUBQ SCH ×4 (07:41→12:51)
[2018-10-12 08:30] LABS: BASOPHILS % (AUTO) 0.7 % (0.0-2.0); EOSINOPHILS % (AUTO) 3.6 % (0.0-3.0); HEMATOCRIT 42.3 % (42.0-52.0); LYMPHOCYTES % (AUTO) 22.3 % (20.0-45.0); MEAN CORPUSCULAR VOLUME 82 FL (80-99); NEUTROPHILS % (AUTO) 66.4 % (45.0-75.0); PLATELET COUNT 166 K/UL (150-450); RED BLOOD COUNT 5.18 M/UL (4.70-6.10); WHITE BLOOD COUNT 5.7 K/UL (4.8-10.8)
[2018-10-12] MEDS: Ascorbic Acid 500mg tab ORAL SCH (08:43)
[2018-10-12] MEDS: Multivitamin w/Minerals tab ORAL SCH ×2 (08:43→08:51)
[2018-10-12] MEDS: Docusate 100mg cap ORAL SCH ×2 (08:43→08:51)
[2018-10-12] MEDS: Lisinopril 20mg tab ORAL SCH (08:44)
[2018-10-12] MEDS: Enoxaparin 40mg Inj SUBQ SCH (08:50)
[2018-10-12 09:00] VITALS: BP 143/44
--- NOTE | 2018-10-12 11:54 | General Progress Note ---
Assessment/Plan Status: stable Assessment/Plan 1. Protein albumin dissociation. In addition, CRP was elevated. --> Obtain serum protein electrophoresis - pending 2. Diabetes mellitus, poorly controlled diabetes, nonketotic acidosis. --> Cont insulin sliding scale in addition to Accu-Chek before meals and at bedtime. --> Cont to monitor BS levels 3. Noncompliance of medications. Given potential need for dialysis in the future if his creatinine continues to worsen and kidney function continues to worsen. 4. Charcot foot. Monitor per Podiatry. 5. Hypertension. Systolic blood pressure goal is 140. --. Pt on hydralazine 6. Bipolar disorder per Psychiatry. GREATLY APPRECIATE CONSULTATION. Subjective Date patient seen: Oct 12, 2018 Allergies: Coded Allergies: METFORMIN (Verified Allergy, Unknown, 10/09/18) Vomiting All Systems: reviewed and negative except above Subjective Pt awake and alert. No acute events. VS stable. Objective Last 24 Hour Vital Signs Date Time Temp Pulse Resp B/P (MAP) Pulse Ox O2 Delivery O2 Flow Rate FiO2 10/12/18 09:00 98.0 94 16 143/44 (77) 100 10/12/18 08:44 111/82 10/12/18 00:00 97.9 77 18 121/67 (85) 94 10/11/18 21:22 134/84 10/11/18 21:00 Room Air 10/11/18 20:40 97.8 78 19 134/84 (101) 95 10/11/18 20:00 97.8 78 19 134/84 (101) 95 10/11/18 16:00 97.8 75 20 120/68 (85) 98 10/11/18 13:43 149/89 10/11/18 12:16 98.0 82 20 149/89 (109) 96 Intake and Output 10/11/18 10/12/18 19:00 07:00 Intake Total 720 ml Balance 720 ml Intake Oral 720 ml # Voids 2 Laboratory Tests 10/12/18 07:50: White Blood Count 5.7, Red Blood Count 5.18, Hemoglobin 14.0L, Hematocrit 42.3, Mean Corpuscular Volume 82, Mean Corpuscular Hemoglobin 27.0, Mean Corpuscular Hemoglobin Concent 33.1, Red Cell Distribution Width 14.0, Platelet Count 166, Mean Platelet Volume 6.7, Neutrophils (%) (Auto) 66.4, Lymphocytes (%) (Auto) 22.3, Monocytes (%) (Auto) 7.0, Eosinophils (%) (Auto) 3.6H, Basophils (%) (Auto ) 0.7 Height (Feet): 5 Height (Inches): 10.00 Weight (Pounds): 131 Objective PHYSICAL EXAMINATION: VITAL SIGNS: Reviewed GENERAL: No acute distress. PULMONARY: Decreased breath sounds. CARDIOVASCULAR: Regular rate. No S3 or S4. ABDOMEN: Soft, nontender, and nondistended. EXTREMITIES: No cyanosis noted. Positive for Charcot foot. Positive for stump of the prior tarsometatarsal resection. NEUROLOGICAL: Grossly nonfocal. Alert and oriented x3. James Rushing MD Oct 12, 2018 11:54
[2018-10-12 12:00] VITALS: BP 136/79
[2018-10-12] MEDS ORDERED: Ciprofloxacin Opth Soln 2.5ml LEFT EYE SCH (13:00)
[2018-10-12] MEDS ORDERED: Pred Forte 1% Opth Susp 1ml LEFT EYE SCH (13:00)
[2018-10-12] MEDS ORDERED: LEVEMIR FL100 UNIT/1 SUBQ (13:19)
[2018-10-12] MEDS ORDERED: NOVOLOG100 UNITS1 SUBQ ×3 (13:21→13:44)
--- NOTE | 2018-10-15 11:04 | Discharge Summary ---
Discharge Summary Discharge Summary _ DATE OF ADMISSION: 10/08/2018 DATE OF DISCHARGE: 10/12/2018 REASON FOR ADMISSION: 47 years old male with past medical history of diabetes mellitus out of control , hypertension, noncompliance with diet and medication, bipolar disorder, Charcot foot, left partial metatarsal amputation, chronic kidney disease, liver disease ,bipolar disorder was [facility] from the [facility] facility for evaluation due to elevated blood sugar. Blood sugar was recorded to be 470 and therefore patient was transferred to emergency room for further evaluation and management . Upon evaluation vital signs were stable. No leukocytosis, stable hemoglobin and hematocrit. Glucose 370. CO2 and anion gap were within normal limits. BUN 34 creatinine 2.1. EKG revealed normal sinus rhythm. Patient admitted with diagnoses of hyperosmolar nonketotic acidosis, diabetes mellitus out of control, noncompliance with diet and medications, acute kidney injury, hypertension, Charcot foot, psychiatric disorder. CONSULTANTS: Vice President Supply Chain/oncologist [employer] Dr. Borges Podiatry Dr. Villagran [facility] COURSE: Patient admitted and started on the IV hydration. Endocrinology consult was requested. Hemoglobin A1c-11.2, clearly not at goal. Anti-glycemic regimen was optimized and uptitrated as per endocrinology and included long-acting Levemir , short-acting pre-meal NovoLog as well as sliding scale of insulin as needed. Dietitian discussed with patient diabetic diet. Patient was counseled on compliance with diet and medication regimen. Renal parameters and electrolytes were closely monitored. Electrolytes corrected as needed and nephrotoxins were avoided. Prior to discharge creatinine from 2.1 down to 1.9. Blood pressure was managed with a current antihypertensive regimen and remained stable. Statin was continued. Sql Developer seen and evaluated patient. Wound care for decubitus ulcer on the left foot provided as per service captain recommendation. Sql Developer recommended continue wound care maintain strict glycemic control, implement dietary recommendations and offload shoes. ESR and CRP minimally elevated 24 and 1.0 respectively. Vice President Supply Chain followed for protein albumin dissociation. Serum protein electrophoresis was unremarkable. Protein supplements added to dietary regimen as per blasting coal miner's recommendations. Pain management addressed. Neurontin continued. Bowel regimen instituted. Supportive care provided. Lexapro was continued . DVT and GI prophylaxis provided. Patient clinically stabilized and was ready for discharge to [facility] facility for continuation of care. Patient likely will need further optimization of anti- glycemic regimen as outpatient. Continue wound care as per service captain recommendations, at the facility, FINAL DIAGNOSES: Diabetes mellitus out of control (with hemoglobin A1c 11.2) Hyperosmolar nonketotic acidosis Noncompliance ( with medication and diabetic diet) Acute kidney injury - improving Protein /albumin dissociation Psychiatric disorder/bipolar disorder Hypertension Diabetic foot ulcer, left foot Diabetic neuropathy Left partial foot amputation, healed Partial right hallux amputation, healed DISCHARGE MEDICATIONS: See Medication Reconciliation list. DISCHARGE INSTRUCTIONS: Patient was discharged to the [facility] facility. Follow up with medical doctor at the facility. I have been assigned to dictate discharge summary for this account. I was not involved in the patient's management. Trang Hillman NP Oct 15, 2018 11:04
== END 2018-10-12 14:35 | DRG 638 ==
LOC: EDBD 17:34 → EMR 19:44 → EDBEDREQ 23:12 → 3E 23:46
DX: E11.00 Type 2 diabetes mellitus with hyperosmolarity without nonketotic hyperglycemic-hyperosmolar coma (NKHHC) (principal); N17.9 Acute kidney failure, unspecified; E11.610 Type 2 diabetes mellitus with diabetic neuropathic arthropathy; E11.65 Type 2 diabetes mellitus with hyperglycemia; Z91.14 Patient's other noncompliance with medication regimen; Z79.4 Long term (current) use of insulin; F31.9 Bipolar disorder, unspecified; Z89.432 Acquired absence of left foot; I12.9 Hypertensive chronic kidney disease with stage 1 through stage 4 chronic kidney disease, or unspecified chronic kidney disease; E11.22 Type 2 diabetes mellitus with diabetic chronic kidney disease; N18.9 Chronic kidney disease, unspecified; E11.621 Type 2 diabetes mellitus with foot ulcer; Z89.411 Acquired absence of right great toe; Z88.8 Allergy status to other drugs, medicaments and biological substances
CPT/HCPCS: 36415; 80053; 81003; 82009; 82962; 83036; 83735; 84165; 85025; 85651; 86140; 87081; 93005; 96360; 99285; J1815; S5561

== ENCOUNTER 2018-11-20 16:47 | Inpatient (IN) | payer MEDICARE, OTHER ==
[~2018-11-20] VITALS: Ht 175.3 cm; Wt 106.6 kg
[~2018-11-20 16:47] MED LIST: ATORVASTATIN CA10 MG ORAL; BESIVANCE LEFT EYE; DOCUSATE SODIU100 MG ORAL; GABAPENTIN100 MG ORAL; LEVEMIR FL100 UNIT/1 SUBQ; LEVEMIR100 UNIT/1 SUBQ; LEXAPRO10 MG ORAL; LIPITOR40 MG ORAL; LISINOPRIL20 MG ORAL; LOPERAMIDE2 M1 PO; LOTEMAX1 DROP LEFT EYE; MILK OF MA400 MG/51 ORAL; MULTIVITAMINS1 EAC8 ORAL; NEURONTIN100 MG ORAL; NOVOLOG100 UNIT/4 SQ; NOVOLOG100 UNITS1 SUBQ; RANITIDINE HCL150 M2 PO; SEROQUEL100 MG ORAL; SEROQUEL50 MG ORAL; UNOBMED; VITAMIN C250 MG ORAL; ZOFRAN4 M1 ORAL; ZOFRAN4 M3 ORAL
--- NOTE | 2018-11-20 17:21 | NUR ---
ED Nurse Note: Received report. Pt JOHANNE from [facility], c/o headache/toothache as well as stomach discomfort x2 days. Pt a&ox4 but very lethargic. Ambulance personnel stated pt is ambulatory. VS taken. Jesus continue to monitor and carry out MD's orders.
[2018-11-20 17:30] VITALS: BP 127/79
[2018-11-20 19:00] VITALS: BP 158/81
--- NOTE | 2018-11-20 19:15 | NUR ---
ED Nurse Note: received report from Racquel/ PACO. PT is A/O X3-4.VSS.
[2018-11-20] MEDS ORDERED: Isovue-300 100ml vial INJ PRN (19:30)
[2018-11-20 19:31] LABS: ALANINE AMINOTRANSFERASE 51 U/L (12-78); ALBUMIN 2.9 G/DL (3.4-5.0); ALBUMIN/GLOBULIN RATIO 0.6 (1.0-2.7); ALKALINE PHOSPHATASE 133 U/L (46-116); ANION GAP 7 mmol/L (5-15); ASPARTATE AMINO TRANSFERASE 20 U/L (15-37); BILIRUBIN,TOTAL 0.3 MG/DL (0.2-1.0); BLOOD UREA NITROGEN 37 mg/dL (7-18); CALCIUM 9.3 MG/DL (8.5-10.1); CARBON DIOXIDE 28 MMOL/L (21-32); CHLORIDE 96 MMOL/L (98-107); SODIUM 131 MMOL/L (136-145)
[2018-11-20 19:38] LABS: POTASSIUM 6.1 MMOL/L (3.5-5.1)
--- NOTE | 2018-11-20 19:46 | NUR ---
HAND-OFF: Report given to Ladan ANTONIO. Pt stable and back from CT.
--- NOTE | 2018-11-20 19:47 | NUR ---
ED Nurse Note: received report from Racquel/ PACO. PT is A/O X3-4.VSS.
[2018-11-20 19:55] LABS: BASOPHILS % (AUTO) 0.4 % (0.0-2.0); EOSINOPHILS % (AUTO) 2.8 % (0.0-3.0); HEMATOCRIT 43.2 % (42.0-52.0); LYMPHOCYTES % (AUTO) 18.1 % (20.0-45.0); MEAN CORPUSCULAR VOLUME 85 FL (80-99); MONOCYTES % (AUTO) 6.7 % (1.0-10.0); PLATELET COUNT 270 K/UL (150-450); RED BLOOD COUNT 5.07 M/UL (4.70-6.10); RED CELL DISTRIBUTION WIDTH 13.6 % (11.6-14.8); WHITE BLOOD COUNT 6.2 K/UL (4.8-10.8)
[2018-11-20] MEDS ORDERED: IBUPROFEN600 MG ORAL (19:59)
[2018-11-20] MEDS ORDERED: BISACODYL10 M1 RC (20:01)
[2018-11-20] MEDS ORDERED: FLEET ENEMA133 ML RECTAL (20:01)
[2018-11-20] MEDS ORDERED: MAXITROL OPTH1 DROP LEFT EYE (20:03)
[2018-11-20] MEDS ORDERED: ACETAMINOPHEN325 M1 ORAL (20:03)
[2018-11-20] MEDS ORDERED: HUMALOG100 UNIT/4 SUBQ (20:13)
[2018-11-20] MEDS ORDERED: LEVEMIR100 UNIT/1 SUBQ (20:13)
[2018-11-20] MEDS ORDERED: ROBITUSSIN DM5 ML PO (20:13)
[2018-11-20] MEDS ORDERED: CEPACOL SORETH1 EACH ORAL (20:13)
[2018-11-20] MEDS ORDERED: TRAMADOL HCL50 MG ORAL (20:13)
[2018-11-20] MEDS ORDERED: Clindamycin 600mg 50 ML IVPB ONE (22:15)
--- NOTE | 2018-11-20 22:36 | Emergency Room Report ---
History of Present Illness General Chief Complaint: Headache Source: Patient Present Illness [facility] This patient has multiple complaints. The patient states he has had ongoing pain in his right lower molar. He states he has seen a dentist for this and has undergone a root canal. He states that he continues to have pain and this is radiating into his head. He states he is also had nausea, vomiting and intermittent abdominal pain. He states the symptoms come and go. He denies fever or chills. He states he currently has no abdominal pain. Allergies: Coded Allergies: METFORMIN (Verified Allergy, Unknown, 10/09/18) Vomiting Patient History Past Medical History: see triage record, old chart reviewed, DM, HTN, psych hx - Bipolar, renal disease, other - osteomyelitis, Decubitus ulcers Social History: Denies: smoking, alcohol use, drug use Reviewed Nursing Documentation: PMH: Agreed; PSxH: Agreed Nursing Documentation-PMH Hx Cardiac Problems: Yes Hx Hypertension: Yes Hx Diabetes: Yes - type 2 Hx Cancer: No Hx Neurological Problems: Yes - pvd, Review of Systems All Other Systems: negative except mentioned in HPI Physical Exam Vital Signs Date Time Temp Pulse Resp B/P (MAP) Pulse Ox O2 Delivery O2 Flow Rate FiO2 11/20/18 16:51 97.5 73 18 118/70 96 Nasal Cannula 1.0 Sp02 EP Interpretation: reviewed, normal General Appearance: no apparent distress, alert, GCS 15, non-toxic Head: normocephalic, atraumatic Eyes: bilateral eye normal inspection, bilateral eye PERRL ENT: hearing grossly normal, normal pharynx, no angioedema, normal voice Neck: full range of motion, supple/symm/no masses Respiratory: chest non-tender, lungs clear, normal breath sounds, no respiratory distress, no retraction, no accessory muscle use, speaking full sentences Cardiovascular #1: regular rate, rhythm, no edema Gastrointestinal: normal bowel sounds, non tender, soft, non-distended, no guarding, no rebound Rectal: deferred Musculoskeletal: normal range of motion, other - Boot on L. foot. 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, oriented x3, responsive, motor strength/tone normal, sensory intact, speech normal Psychiatric: judgement/insight normal, memory normal, mood/affect normal, no suicidal/homicidal ideation Skin: warm/dry, well hydrated, other - See RN skin exam Medical Decision Making Diagnostic Impression: Primary Impression: Periapical abscess Additional Impressions: Gastritis Hyperglycemia Poorly controlled diabetes mellitus ER Course Patient has an ongoing headache and toothache. CT of the maxillofacial bones showed an area on the molar that is bothering him that is consistent with a small myriam-apical abscess. Given clindamycin IV. Likely this tooth will need to be removed. The patient also has ongoing gastritis and hyperglycemia. He has poorly controlled diabetes. He is admitted for all of these conditions. Laboratory Tests Test 11/20/18 18:40 11/20/18 20:52 White Blood Count 6.2 K/UL (4.8-10.8) Red Blood Count 5.07 M/UL (4.70-6.10) Hemoglobin 14.0 G/DL (14.2-18.0) L Hematocrit 43.2 % (42.0-52.0) Mean Corpuscular Volume 85 FL (80-99) Mean Corpuscular Hemoglobin 27.6 PG (27.0-31.0) Mean Corpuscular Hemoglobin Concent 32.4 G/DL (32.0-36.0) Red Cell Distribution Width 13.6 % (11.6-14.8) Platelet Count 270 K/UL (150-450) Mean Platelet Volume 5.9 FL (6.5-10.1) L Neutrophils (%) (Auto) 72.0 % (45.0-75.0) Lymphocytes (%) (Auto) 18.1 % (20.0-45.0) L Monocytes (%) (Auto) 6.7 % (1.0-10.0) Eosinophils (%) (Auto) 2.8 % (0.0-3.0) Basophils (%) (Auto) 0.4 % (0.0-2.0) Prothrombin Time 10.4 SEC (9.30-11.50) Prothrombin Time INR 1.0 (0.9-1.1) PTT 29 SEC (23-33) Sodium Level 131 MMOL/L (136-145) L Potassium Level 6.1 MMOL/L (3.5-5.1) *H 5.2 MMOL/L (3.5-5.1) H Chloride Level 96 MMOL/L (98-107) L Carbon Dioxide Level 28 MMOL/L (21-32) Anion Gap 7 mmol/L (5-15) Blood Urea Nitrogen 37 mg/dL (7-18) H Creatinine 2.0 MG/DL (0.55-1.30) H Estimate Glomerular Filtration Rate 35.5 mL/min (>60) Glucose Level 380 MG/DL (74-106) H Calcium Level 9.3 MG/DL (8.5-10.1) Total Bilirubin 0.3 MG/DL (0.2-1.0) Aspartate Amino Transferase (AST) 20 U/L (15-37) Alanine Aminotransferase (ALT) 51 U/L (12-78) Alkaline Phosphatase 133 U/L (46-116) H Total Protein 7.9 G/DL (6.4-8.2) Albumin 2.9 G/DL (3.4-5.0) L Globulin 5.0 g/dL Albumin/Globulin Ratio 0.6 (1.0-2.7) L EKG Diagnostic Results Rate: normal Rhythm: NSR ST Segments: no acute changes Rhythm Strip Diag. Results EP Interpretation: yes Rate: 70's Rhythm: NSR, no PVC's, no ectopy CT/MRI/US Diagnostic Results CT/MRI/US Diagnostic Results : Imaging Test Ordered: CT facial bones and CT head Impression Is found to have evidence on CT of the face of a tiny periapical abscess of the right molar. See the official report. No acute intracranial process. Last Vital Signs Date Time Temp Pulse Resp B/P (MAP) Pulse Ox O2 Delivery O2 Flow Rate FiO2 11/20/18 19:00 97.5 71 15 158/81 95 Room Air 11/20/18 16:51 1.0 Disposition: ADMITTED INPATIENT Condition: Stable Referrals: Dexter Haas MD (PCP) Monica Bryson DO Nov 20, 2018 22:36
[2018-11-20] MEDS ORDERED: Norco 5mg/325mg tab ORAL ONE (23:45)
--- NOTE | 2018-11-21 00:20 | NUR ---
ED Nurse Note: MRSA sent to Lab, but pt refused to have VRE done.
--- NOTE | 2018-11-21 00:25 | NUR ---
TRANSFER TO FLOOR: Patient transferred to [facility] as ordered. Report given to MHM/RN. Belongings sent with Pt and re-checked with RN.
--- NOTE | 2018-11-21 01:45 | NUR ---
NURSE NOTES: Recieved report from PETROS Sneed, patient is a new admit from ER, resident of SNF, patient is in bed, awake, alert, in no acute distress at this time, RN called Dr. Haas at 0130 and left a message to call back with the orders. Bed is in low position and locked, alarm is on , call light is within reach. Will continue assess and monitor for pain and discomfort.
--- NOTE | 2018-11-21 03:00 | NUR ---
NURSE NOTES: RN called MD, recieved admit orders, per MD continue with previous admission discharge orders, continue with [place] for pain management as well. Wound care is completed, picture taken, wound care protocol assigned. Patient is resting in bed, asleep. Safety precautions taken,, bed is in low position, alarm is on and call light is within reach. Patients belongings are by his bedside, accounted for, RN communicated to manager night about patients schreiber on hand and placing it in the safe with security.
--- NOTE | 2018-11-21 03:13 | NUR ---
NURSE NOTES: RN tested MD to obtain admit orders at 0234, no reply no call from MD. MORRELL is aware. Addendum: 11/21/18 at 0623 by TINO JACK RN texted not tested
[2018-11-21 04:00] VITALS: BP 135/96
[2018-11-21] MEDS ORDERED: Milk of Magnesia 30ml Ud ORAL PRN (05:00)
[2018-11-21] MEDS ORDERED: Lisinopril 20mg tab ORAL ONE (05:00)
[2018-11-21] MEDS ORDERED: Loperamide 2mg cap ORAL PRN (05:00)
[2018-11-21] MEDS: Norco 5mg/325mg tab ORAL PRN (07:34)
--- NOTE | 2018-11-21 08:33 | NUR ---
NURSE NOTES: Patient alert x3, short temper, got irritated easily. Pt in room air, no sign of distress and shortness of breath. no sign of chest pain. Skin- left foot, dressing dry and intact. Call light within reach. Will keep monitoring.
[2018-11-21] MEDS ORDERED: Docusate 100mg cap ORAL SCH (09:00)
[2018-11-21] MEDS: Ascorbic Acid 500mg tab ORAL SCH ×2 (09:00→10:06)
[2018-11-21] MEDS: Enoxaparin 40mg Inj SUBQ SCH (09:00)
[2018-11-21] MEDS ORDERED: Lisinopril 20mg tab ORAL SCH (09:00)
[2018-11-21 10:04] LABS: BASOPHILS % (AUTO) 0.5 % (0.0-2.0); HEMATOCRIT 44.3 % (42.0-52.0); HEMOGLOBIN 14.2 G/DL (14.2-18.0); MEAN CORPUSCULAR VOLUME 85 FL (80-99); MONOCYTES % (AUTO) 5.1 % (1.0-10.0); NEUTROPHILS % (AUTO) 76.4 % (45.0-75.0); PLATELET COUNT 316 K/UL (150-450); RED CELL DISTRIBUTION WIDTH 13.8 % (11.6-14.8); WHITE BLOOD COUNT 7.3 K/UL (4.8-10.8)
[2018-11-21 10:15] LABS: ANION GAP 10 mmol/L (5-15); BLOOD UREA NITROGEN 30 mg/dL (7-18); CALCIUM 9.3 MG/DL (8.5-10.1); CARBON DIOXIDE 26 MMOL/L (21-32); CHLORIDE 95 MMOL/L (98-107); CREATININE 1.9 MG/DL (0.55-1.30); POTASSIUM 4.8 MMOL/L (3.5-5.1); SODIUM 131 MMOL/L (136-145)
[2018-11-21] MEDS: Clindamycin 600mg 50 ML IVPB SCH ×2 (10:35→13:27)
--- NOTE | 2018-11-21 10:59 | Consultation ---
Consult Note Consult Note asked to eval for renal failure- This patient has multiple complaints. The patient states he has had ongoing pain in his right lower molar. He states he has seen a dentist for this and has undergone a root canal. He states that he continues to have pain and this is radiating into his head. He states he is also had nausea, vomiting and intermittent abdominal pain. He states the symptoms come and go. He denies fever or chills. He states he currently has no abdominal pain. Allergy: METFORMIN (Verified Allergy, Unknown, 10/09/18) Vomiting Past Medical History: , DM, HTN, psych hx - Bipolar, renal disease, other - osteomyelitis, Decubitus ulcers Hx Cardiac Problems: Yes Hx Hypertension: Yes Hx Diabetes: Yes - type 2 Hx Neurological Problems: Yes - pvd, Assessment/Plan Renal Failure Likely acute on chronic ? Diabetic Nephropathy HyperKalemia HypoNatremia NS bolus stop Zastril and Motrin BS abd BP control Monitor renal parameters Antibiotics Ernesto Frost MD Nov 21, 2018 10:59
[2018-11-21] MEDS: Tamsulosin 0.4mg cap ORAL SCH ×2 (11:00→17:21)
[2018-11-21] MEDS ORDERED: Levemir Flexpen SUBQ SCH ×2 (11:00→21:00)
--- NOTE | 2018-11-21 11:35 | History & Physical ---
History and Physical History & Physicial SOURCE OF INFORMATION: The patient and EMR. HISTORY OF PRESENT ILLNESS: The patient is a 48-year-old male with a history of uncontrolled diabetes with Charcot foot, who [facility] secondary to uncontrolled head and neck pain. again, The patient reportedly is noncompliant with the diet. The patient reportedly had been particularly noncompliant with low sugar diet and had been taking double and at times triple portion diet/meals. SOCIAL HISTORY: The patient denies history of smoking or alcohol abuse. PAST MEDICAL AND SURGICAL HISTORY: Including but not limited to uncontrolled diabetes, hypertension, noncompliance with the diet, bipolar disorder, Charcot foot, tarsometatarsal amputation, chronic kidney disease, and liver disease. FAMILY HISTORY: Reviewed and noncontributory. MEDICATIONS: Current hospital medications including, but not limited to, sliding scale insulin, lantus 20 units BID PHYSICAL EXAMINATION: VITAL SIGNS: Blood pressure 125/80, temperature 98.2, pulse oximetry 98% on room air, and respiratory rate 18. HEAD AND NECK: multiple molars with plaques, posssible career/abcess, Atraumatic and normocephalic. CHEST: Clear to auscultation. No wheezing. No crackles. HEART: S1 and S2. Regular rate and rhythm. No S3. No S4. ABDOMEN: Soft. No organomegaly. MUSCULOSKELETAL: Positive for Charcot's foot. Positive for stump of the prior tarsometatarsal resections. NEUROLOGIC: The patient is awake, alert, and oriented x3. PSYCHIATRIC: Mood and affect is elated. LABORATORY DATA: Dated reviewed A/P: 1- HyperKalemia 2- Head and Neck pain , likely secondary to dental infection 3. Non compliance with medications 3- Charcot Foot 4- HTN 5- Psych 6. Acute/ Chronic KD Plan: Start empirical antibiotic regiment, ID is consulted Nephro consulted will resume [facility] medications Had detailed conversation with patient regarding Compliance issue Dexter Haas MD Nov 21, 2018 11:35
--- NOTE | 2018-11-21 12:24 | Diagnostic Imaging Report ---
Indications: Headache Technique: Spiral acquisitions obtained through the brain. Angled axial and coronal 5 x 5 mm slices were reconstructed. Total dose length product 1446.46 mGycm. CTDI vol(s) 70.38 mGy. Dose reduction achieved using automated exposure control Comparison: None. Findings: No acute intrarenal hemorrhage or edema. No mass effect nor midline shift. Normal ross-white differentiation. Normal-sized ventricles and extra axial CSF spaces. Intact calvarium. Visualized orbits are unremarkable. 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 There is evidence of prior bilateral cataract surgery. Impression: Negative for acute intracranial bleed or mass effect Sinus disease This agrees with the preliminary interpretation provided overnight by Dr. Zheng The CT scanner at [facility] is accredited by the [employer] and the scans are performed using protocols designed to limit radiation exposure to as low as reasonably achievable to attain images of sufficient resolution adequate for diagnostic evaluation.
--- NOTE | 2018-11-21 12:40 | Diagnostic Imaging Report ---
Indications: Facial pain, suspected odontogenic abscess, headache, toothache Technique: Spiral images obtained through the facial bones. No IV contrast utilized. Multiplanar reconstructions were generated.No IV contrast utilized, due to renal insufficiency. Total dose length product 954 mGycm. CTDIvol(s) 28 and 28 mGy. Dose reduction achieved using automated exposure control Comparison: none Findings: Streak artifact from dental amalgam somewhat limits assessment of the dentition. Large caries and some periapical lucency seen involving the right second mandibular molar. The maxillary dentition appears largely intact. There is near complete opacification of the left maxillary sinus. There are destructive changes of the medial right maxillary wall. There is extensive opacification of the ethmoid sinuses with contiguous opacification of the nasal fossa on the left. There is also left sphenoid opacification and minimal left frontal opacification. There is evidence of prior bilateral cataract surgery. The optic globes are intact. The retroseptal orbits are unremarkable. The mastoids are clear. The facial soft tissues are otherwise unremarkable. The upper aerodigestive tract is unremarkable except for some adenoidal prominence. Impression: Dental disease as described, predominantly involving the right second mandibular molar. Extensive left-sided pansinusitis, as described Adenoidal prominence This agrees with the preliminary interpretation provided overnight by Dr. Zheng The CT scanner at [facility] is accredited by the [employer] and the scans are performed using protocols designed to limit radiation exposure to as low as reasonably achievable to attain images of sufficient resolution adequate for diagnostic evaluation.
[2018-11-21] MEDS: Docusate 100mg cap ORAL SCH ×2 (13:00→17:20)
--- NOTE | 2018-11-21 16:35 | Infectious Diseases Prog Note ---
Assessment/Plan Problems: (1) Pansinusitis Assessment & Plan: mainly on the left will start him on unazyn empirically to cover for infection , recommend ENT eval to rule out malignant process (2) Periapical abscess Assessment & Plan: suspect root canal infection, will start unasyn empirically , recommend referral to dentist or oral surgeon for further evaluation and root canal work (3) Poorly controlled diabetes mellitus Assessment & Plan: recommend tight glycemic control to keep blood glucose between 100-140 Subjective Allergies: Coded Allergies: METFORMIN (Verified Allergy, Unknown, 10/09/18) Vomiting Objective Vital Signs Last 24 Hour Vital Signs Date Time Temp Pulse Resp B/P (MAP) Pulse Ox O2 Delivery O2 Flow Rate FiO2 11/21/18 09:00 Room Air 11/21/18 08:04 98.7 11/21/18 04:00 98.7 92 18 135/96 (109) 11/21/18 02:54 Room Air 11/21/18 02:36 Room Air 11/21/18 02:35 Room Air 11/21/18 01:51 97.5 11/21/18 00:25 97.5 73 15 158/81 98 Room Air 1.0 11/20/18 19:00 97.5 71 15 158/81 95 Room Air 11/20/18 17:30 97.6 72 12 127/79 94 Room Air 11/20/18 16:51 97.5 73 18 118/70 96 Nasal Cannula 1.0 Height (Feet): 5 Height (Inches): 9.00 Weight (Pounds): 235 Laboratory Tests Test 11/20/18 18:40 11/20/18 20:52 11/21/18 09:30 White Blood Count 6.2 K/UL (4.8-10.8) 7.3 K/UL (4.8-10.8) Red Blood Count 5.07 M/UL (4.70-6.10) 5.20 M/UL (4.70-6.10) Hemoglobin 14.0 G/DL (14.2-18.0) L 14.2 G/DL (14.2-18.0) Hematocrit 43.2 % (42.0-52.0) 44.3 % (42.0-52.0) Mean Corpuscular Volume 85 FL (80-99) 85 FL (80-99) Mean Corpuscular Hemoglobin 27.6 PG (27.0-31.0) 27.3 PG (27.0-31.0) Mean Corpuscular Hemoglobin Concent 32.4 G/DL (32.0-36.0) 32.0 G/DL (32.0-36.0) Red Cell Distribution Width 13.6 % (11.6-14.8) 13.8 % (11.6-14.8) Platelet Count 270 K/UL (150-450) 316 K/UL (150-450) Mean Platelet Volume 5.9 FL (6.5-10.1) L 5.6 FL (6.5-10.1) L Neutrophils (%) (Auto) 72.0 % (45.0-75.0) 76.4 % (45.0-75.0) H Lymphocytes (%) (Auto) 18.1 % (20.0-45.0) L 16.0 % (20.0-45.0) L Monocytes (%) (Auto) 6.7 % (1.0-10.0) 5.1 % (1.0-10.0) Eosinophils (%) (Auto) 2.8 % (0.0-3.0) 2.0 % (0.0-3.0) Basophils (%) (Auto) 0.4 % (0.0-2.0) 0.5 % (0.0-2.0) Prothrombin Time 10.4 SEC (9.30-11.50) Prothromb Time International Ratio 1.0 (0.9-1.1) Activated Partial Thromboplast Time 29 SEC (23-33) Sodium Level 131 MMOL/L (136-145) L 131 MMOL/L (136-145) L Potassium Level 6.1 MMOL/L (3.5-5.1) *H 5.2 MMOL/L (3.5-5.1) H 4.8 MMOL/L (3.5-5.1) Chloride Level 96 MMOL/L (98-107) L 95 MMOL/L (98-107) L Carbon Dioxide Level 28 MMOL/L (21-32) 26 MMOL/L (21-32) Anion Gap 7 mmol/L (5-15) 10 mmol/L (5-15) Blood Urea Nitrogen 37 mg/dL (7-18) H 30 mg/dL (7-18) H Creatinine 2.0 MG/DL (0.55-1.30) H 1.9 MG/DL (0.55-1.30) H Estimat Glomerular Filtration Rate 35.5 mL/min (>60) 37.7 mL/min (>60) Glucose Level 380 MG/DL (74-106) H 406 MG/DL (74-106) H Calcium Level 9.3 MG/DL (8.5-10.1) 9.3 MG/DL (8.5-10.1) Total Bilirubin 0.3 MG/DL (0.2-1.0) Aspartate Amino Transf (AST/SGOT) 20 U/L (15-37) Alanine Aminotransferase (ALT/SGPT) 51 U/L (12-78) Alkaline Phosphatase 133 U/L (46-116) H Total Protein 7.9 G/DL (6.4-8.2) Albumin 2.9 G/DL (3.4-5.0) L Globulin 5.0 g/dL Albumin/Globulin Ratio 0.6 (1.0-2.7) L C-Reactive Protein, Quantitative 4.4 mg/dL (0.00-0.90) H Current Medications Medications (Trade) Dose Ordered Sig/Aylin Route PRN Reason Start Time Stop Time Status Last Admin Dose Admin Acetaminophen/ Hydrocodone Bitart ([place] 5/325) 1 tab Q4H PRN ORAL Moderate Pain (Pain Scale 4-6) 11/21/18 03:45 11/28/18 03:44 11/21/18 07:34 Atorvastatin Calcium (Lipitor) 10 mg BEDTIME ORAL 11/21/18 21:00 12/21/18 20:59 Clindamycin HCl/ Dextrose 50 ml @ 100 mls/hr Q8HR IVPB 11/21/18 09:00 11/28/18 08:59 11/21/18 13:27 Docusate Sodium (Colace) 100 mg TID ORAL 11/21/18 13:00 12/21/18 08:59 Enoxaparin Sodium (Lovenox) 40 mg DAILY SUBQ 11/21/18 09:00 12/21/18 08:59 Escitalopram Oxalate (Lexapro) 10 mg DAILY ORAL 11/21/18 09:00 12/21/18 08:59 11/21/18 10:06 Gabapentin (Neurontin) 300 mg THREE TIMES A DAY ORAL 11/21/18 09:00 12/21/18 08:59 11/21/18 13:33 Insulin Detemir (Levemir) 20 units BEDTIME SUBQ 11/21/18 21:00 12/21/18 20:59 Insulin Detemir (Levemir) 20 units DAILY SUBQ 11/21/18 11:00 12/21/18 10:59 11/21/18 13:02 Iopamidol (Isovue-300 100ml) 100 ml NOW PRN INJ Radiology Procedure 11/20/18 19:30 11/22/18 19:24 Loperamide HCl (Imodium) 2 mg Q4H PRN ORAL Diarrhea 11/21/18 05:00 12/21/18 04:59 Magnesium Hydroxide (Mom) 30 ml DAILYPRN PRN ORAL Constipation 11/21/18 05:00 12/21/18 04:59 Multivitamins (Multivitamins) 1 tab DAILY ORAL 11/21/18 09:00 12/21/18 08:59 Nateglinide (Starlix) 120 mg TIAC ORAL 11/21/18 11:30 12/21/18 11:29 Ondansetron HCl (Zofran) 4 mg EVERY 8 HOURS PRN ORAL Nausea & Vomiting 11/21/18 05:00 12/21/18 04:59 Pantoprazole (Protonix) 40 mg EVERY 12 HOURS ORAL 11/21/18 11:00 12/21/18 10:59 Quetiapine Fumarate (SEROquel) 100 mg BID ORAL 11/21/18 09:00 12/21/18 08:59 Sodium Chloride 1,000 ml @ 100 mls/hr Q10H IV 11/21/18 11:00 11/21/18 20:59 Tamsulosin HCl (Flomax) 0.4 mg BID ORAL 11/21/18 11:00 12/21/18 10:59 Kwasi Martinez M.D. Nov 21, 2018 16:35
--- NOTE | 2018-11-21 17:09 | NUR ---
CASE MANAGEMENT:REVIEW BIBA FROM [facility] CC: HEADACHE X2 DAYS RADIATING TO CHEEK AND EYE. TOOTHACHE. STOMACH DISCOMFORT SI: GASTRITIS. PERIAPICAL ABSCESS. HYPERGLYCEMIA 97.5 73 18 118/70 96% ON 1L/NC K+6.1 GLUCOSE+380 IS: IV CLINDAMYCIN NORCO PO CT FACIAL BONES CT MAXILLOFACIAL CT HEAD : TO MED/SURG IS: IVF@100/HR INTERQUAL CRITERIA
--- NOTE | 2018-11-21 19:41 | NUR ---
HAND-OFF: Report given to PACO Rosales.
[2018-11-21] MEDS ORDERED: NovoLOG Insulin Flexpen SUBQ SCH (21:00)
[2018-11-21] MEDS ORDERED: Atorvastatin 20mg tab ORAL SCH (21:00)
--- NOTE | 2018-11-21 21:00 | Consultation ---
DATE OF CONSULTATION: 11/21/2018 INFECTIOUS DISEASE CONSULTATION: CONSULTING PHYSICIAN: Kwasi Martinez M.D. REFERRING PHYSICIAN: Dexter Haas M.D. REASON FOR CONSULTATION: Left side facial swelling with extensive pansinusitis and possible root canal infection, recommendation for antibiotics treatment in poorly controlled diabetic patient. HISTORY OF PRESENT ILLNESS: The patient is a 48-year-old male with past medical history of diabetes, poorly controlled with complication including retinopathy and cataract, status post recent cataract surgery; hypertension; coronary artery disease; and peripheral vascular disease presented to [facility] emergency room for right lower molar pain with facial swelling and headache. He had seen dentist for this and he had undergone some root canal work recently. Unclear whether it was done on the same area or not, but he continued to have pain radiating to his head. He also had nausea, vomiting, and intermittent abdominal pain associated with his symptoms. No fever or chills. No cough or shortness of breath. No epistaxis or other associated symptom. The patient had CT scan of the face, which showed evidence of right molar mandible periapical lucency suggestive of root canal infection and extensive left side pansinusitis, so he was started on clindamycin and Infectious Disease consultation was requested for antibiotics treatment and further management. REVIEW OF SYSTEMS: A 14-point of systems reviewed were all negative apart from the one I mentioned above in my History and Physical. PAST MEDICAL HISTORY: Significant for diabetes, hypertension, psych disorder, bipolar, chronic renal disease, osteomyelitis of the left foot, and decubitus ulcer. SURGERY: Not on record. SOCIAL HISTORY: The patient denies using any drugs, tobacco, or alcohol. He lives in assisted living. ALLERGIES: He is allergic to metformin with vomiting. MEDICATIONS: Currently he is on clindamycin. For the rest of his medications, please refer to MAR. PHYSICAL EXAMINATION: VITAL SIGNS: Temperature 98.7, pulse 92, respirations 18, blood pressure 135/96, and saturation is 98% on room air. GENERAL: A middle-aged male, up in bed, awake, alert, with mild facial swelling complaining of headache, not in acute distress. HEENT: Normocephalic and atraumatic. Left side facial swelling with tenderness on the right mandible side and swelling. No oral thrush or ulceration or exudate, but multiple decayed teeth mainly in the right molar side, right posterior molar, and left upper jaw. NECK: Supple. No lymphadenopathy. Good range of motion. CARDIOVASCULAR: Regular rate and rhythm. No murmur or gallop. LUNGS: Clear bilaterally. No wheezing or rhonchi. Normal breathing sounds. ABDOMEN: Soft, nontender, and nondistended. Normal bowel sounds. No hepatosplenomegaly or ascites. EXTREMITIES: No edema or cyanosis. Left foot chronic wound dry and clean in the sole of the left foot with intact skin. LABORATORY DATA: Showed white count of 7.3, hemoglobin of 14.2, and platelet count of 316. BUN of 30 and creatinine of 1.9. C-reactive protein of 4.4. IMAGING: Facial bone CT scan showed dental disease predominantly involving the right second mandibular molar with a periapical lucency, extensive left-sided pansinusitis, adenoidal prominence. Head CT scan, no contrast was negative for acute intracranial bleed or mass effect, but sinus disease. ASSESSMENT AND RECOMMENDATION: 1. Left side pansinusitis. We will start him on Unasyn empiric coverage to cover for possible infectious etiology. Recommend ENT eval to rule out malignant process since he had right side maxillary sinus medial wall destruction. 2. Periapical abscess, suspect root canal infection. We will start Unasyn empiric coverage. Recommend referral to dentist or oral surgeon for further evaluation and root canal work. 3. Poorly controlled diabetes. Recommend tight glycemic control to keep blood glucose between 100 to 140. Thank you for the consultation. Infectious Disease will continue to follow. Please feel free to call with any question. Kwasi Martinez M.D. DR: AMAN JOB#: [id number] CC:
--- NOTE | 2018-11-21 21:10 | NUR ---
NURSE NOTES: Patient in bed asleep, no s/s distress noted. Refused 2100 oral medications. Explained risks and benefits, but still refused. Call light within reach.
[2018-11-21] MEDS: Ampicillin/Sulbactam Sod 3 GM in NS 110 ML IVPB SCH (22:20)
[2018-11-22] MEDS: Norco 5mg/325mg tab ORAL PRN ×3 (00:22→18:10)
[2018-11-22 00:54] LABS: APPEARANCE,URINE CLEAR; BILIRUBIN, URINE NEGATIVE (NEGATIVE); COLOR,URINE PALE YELLOW; GLUCOSE, URINE (UA) 4+ (NEGATIVE); KETONES,URINE NEGATIVE (NEGATIVE); LEUKOCYTE ESTERASE ,URINE NEGATIVE (NEGATIVE); NITRITE,URINE NEGATIVE (NEGATIVE); PH,URINE 5 (4.5-8.0); UROBILINOGEN,URINE NORMAL MG/DL (0.0-1.0)
[2018-11-22 01:09] LABS: PROTEIN,URINE NEGATIVE (NEGATIVE)
[2018-11-22] MEDS: Ampicillin/Sulbactam Sod 3 GM in NS 110 ML IVPB SCH ×2 (05:40→13:17)
[2018-11-22 06:05] LABS: BASOPHILS % (AUTO) 0.6 % (0.0-2.0); EOSINOPHILS % (AUTO) 2.2 % (0.0-3.0); HEMATOCRIT 46.1 % (42.0-52.0); HEMOGLOBIN 14.9 G/DL (14.2-18.0); LYMPHOCYTES % (AUTO) 16.6 % (20.0-45.0); MEAN CORPUSCULAR VOLUME 85 FL (80-99); NEUTROPHILS % (AUTO) 75.6 % (45.0-75.0); PLATELET COUNT 281 K/UL (150-450); RED BLOOD COUNT 5.42 M/UL (4.70-6.10); WHITE BLOOD COUNT 6.5 K/UL (4.8-10.8)
[2018-11-22 06:37] LABS: ALANINE AMINOTRANSFERASE 47 U/L (12-78); ALBUMIN 3.1 G/DL (3.4-5.0); ALBUMIN/GLOBULIN RATIO 0.6 (1.0-2.7); ALKALINE PHOSPHATASE 149 U/L (46-116); ANION GAP 7 mmol/L (5-15); ASPARTATE AMINO TRANSFERASE 32 U/L (15-37); BILIRUBIN,TOTAL 0.2 MG/DL (0.2-1.0); BLOOD UREA NITROGEN 33 mg/dL (7-18); CALCIUM 9.3 MG/DL (8.5-10.1); CARBON DIOXIDE 28 MMOL/L (21-32); CHLORIDE 95 MMOL/L (98-107); CHOLESTEROL 140 MG/DL (< 200); CREATINE KINASE 76 U/L (26-308); FERRITIN 233 NG/ML (8-388); GAMMA GLUTAMYL TRANSPEPTIDASE 88 U/L (5-85); HDL CHOLESTEROL 26 MG/DL (40-60); PHOSPHORUS 3.9 MG/DL (2.5-4.9); POTASSIUM 5.5 MMOL/L (3.5-5.1); SODIUM 130 MMOL/L (136-145); TRIGLYCERIDES 247 MG/DL (30-150)
[2018-11-22 06:42] LABS: % IRON SATURATION 23 % (15-50); IRON 65 ug/dL (50-175); TOTAL IRON BINDING CAPACITY 285 ug/dL (250-450)
--- NOTE | 2018-11-22 06:50 | NUR ---
NURSE NOTES: Spoke to Dr Haas regarding pt's pain medication not effective, no new order at this time.
[2018-11-22] MEDS: NovoLOG Insulin Flexpen SUBQ SCH ×6 (07:02→21:00)
--- NOTE | 2018-11-22 07:05 | NUR ---
HAND-OFF: Report given to Lisbeth ANTONIO.
[2018-11-22 08:00] VITALS: BP 119/78
--- NOTE | 2018-11-22 08:03 | NUR ---
NURSE NOTES: Patient alert x4, in room air, no sign of distress and shortness of breath. No sign of chest pain. Side rails up x2, breaks engaged, call light within reach. Will check blood sugar as scheduled. Will keep monitoring.
[2018-11-22] MEDS: Enoxaparin 40mg Inj SUBQ SCH (09:00)
[2018-11-22] MEDS: Levemir Flexpen SUBQ SCH ×2 (09:00→18:03)
[2018-11-22] MEDS: Docusate 100mg cap ORAL SCH ×3 (09:00→17:43)
[2018-11-22] MEDS: Tamsulosin 0.4mg cap ORAL SCH ×2 (09:00→17:43)
--- NOTE | 2018-11-22 10:24 | General Progress Note ---
Assessment/Plan Status: stable Assessment/Plan PHYSICAL EXAMINATION: VITAL SIGNS: Blood pressure 125/80, temperature 98.2, pulse oximetry 98% on room air, and respiratory rate 18. HEAD AND NECK: multiple molars with plaques, posssible career/abcess mild tenderness over left Maxillary sinus, Atraumatic and normocephalic. CHEST: Clear to auscultation. No wheezing. No crackles. HEART: S1 and S2. Regular rate and rhythm. No S3. No S4. ABDOMEN: Soft. No organomegaly. MUSCULOSKELETAL: Positive for Charcot's foot. Positive for stump of the prior tarsometatarsal resections. NEUROLOGIC: The patient is awake, alert, and oriented x3. PSYCHIATRIC: Mood and affect is elated. LABORATORY DATA: Dated reviewed A/P: 1- HyperKalemia: Resolved 2- Head and Neck pain , likely secondary to Pansinusitis and dental infection 3. Non compliance with medications 3- Charcot Foot 4- HTN 5- Psych 6. Acute/ Chronic KD 7. DM: uncontrolled Plan: On empirical antibiotic regiment, Nephro consulted will resume [facility] medications Had detailed conversation with patient regarding Compliance issue Subjective Allergies: Coded Allergies: METFORMIN (Verified Allergy, Unknown, 10/09/18) Vomiting Objective Last 24 Hour Vital Signs Date Time Temp Pulse Resp B/P (MAP) Pulse Ox O2 Delivery O2 Flow Rate FiO2 11/22/18 09:00 Room Air 11/22/18 08:00 98.7 80 19 119/78 (92) 93 11/21/18 21:00 Room Air Intake and Output 11/21/18 11/22/18 19:00 07:00 Intake Total 480 ml 580 ml Balance 480 ml 580 ml Intake Oral 480 ml 360 ml IV Total 220 ml # Voids 3 2 Laboratory Tests 11/22/18 00:30: Urine Color Pale yellow, Urine Appearance Clear, Urine pH 5, Urine Specific [place] 1.015, Urine Protein Negative, Urine Glucose (UA) 4+H, Urine Ketones Negative, Urine Blood Negative, Urine Nitrite Negative, Urine Bilirubin Negative , Urine Urobilinogen Normal, Urine Leukocyte Esterase Negative, Urine RBC 0, Urine WBC 0, Urine Squamous Epithelial Cells None, Urine Bacteria None 11/22/18 04:45: White Blood Count 6.5, Red Blood Count 5.42, Hemoglobin 14.9, Hematocrit 46.1, Mean Corpuscular Volume 85, Mean Corpuscular Hemoglobin 27.5, Mean Corpuscular Hemoglobin Concent 32.3, Red Cell Distribution Width 14.0, Platelet Count 281, Mean Platelet Volume 5.8L, Neutrophils (%) (Auto) 75.6H, Lymphocytes (%) (Auto) 16.6L, Monocytes (%) (Auto) 5.0, Eosinophils (%) (Auto) 2.2, Basophils (%) (Auto ) 0.6, Sodium Level 130L, Potassium Level 5.5H, Chloride Level 95L, Carbon Dioxide Level 28, Anion Gap 7, Blood Urea Nitrogen 33H, Creatinine 2.0H, Estimat Glomerular Filtration Rate 35.5, Glucose Level 331H, Hemoglobin A1c 11.5H, Uric Acid 7.1, Calcium Level 9.3, Phosphorus Level 3.9, Magnesium Level 2.0, Iron Level 65, Total Iron Binding Capacity 285, Percent Iron Saturation 23 , Unsaturated Iron Binding 220, Ferritin 233, Total Bilirubin 0.2, Gamma Glutamyl Transpeptidase 88H, Aspartate Amino Transf (AST/SGOT) 32, Alanine Aminotransferase (ALT/SGPT) 47, Alkaline Phosphatase 149H, Total Creatine Kinase 76, Troponin I 0.000, Pro-B-Type Natriuretic Peptide 41, Total Protein 8.5H, Albumin 3.1L, Globulin 5.4, Albumin/Globulin Ratio 0.6L, Triglycerides Level 247H, Cholesterol Level 140, LDL Cholesterol 79, HDL Cholesterol 26L, Cholesterol/HDL Ratio 5.4H, Vitamin B12 Level 761, Folate 17.3, Thyroid Stimulating Hormone (TSH) 1.021 Height (Feet): 5 Height (Inches): 9.00 Weight (Pounds): 235 Dexter Haas MD Nov 22, 2018 10:24
[2018-11-22] MEDS ORDERED: Sodium Polystyrene Sulfonate 15gm Powder ORAL SCH (10:30)
--- NOTE | 2018-11-22 10:33 | Nephrology Progress Note ---
Assessment/Plan Problem List: (1) Diabetic nephropathy (2) Renal failure (ARF), acute on chronic (3) Hyperkalemia Assessment Renal Failure Likely acute on chronic ? Diabetic Nephropathy HyperKalemia HypoNatremia Plan NS bolus stop Zastril and Motrin BS abd BP control Kayexelate as needed Monitor renal parameters Antibiotics Subjective ROS Limited/Unobtainable: No Constitutional: Reports: malaise Objective Objective Last 24 Hour Vital Signs Date Time Temp Pulse Resp B/P (MAP) Pulse Ox O2 Delivery O2 Flow Rate FiO2 11/22/18 09:00 Room Air 11/22/18 08:00 98.7 80 19 119/78 (92) 93 11/21/18 21:00 Room Air Intake and Output 11/21/18 11/22/18 19:00 07:00 Intake Total 480 ml 580 ml Balance 480 ml 580 ml Intake Oral 480 ml 360 ml IV Total 220 ml # Voids 3 2 Laboratory Tests 11/22/18 00:30: Urine Color Pale yellow, Urine Appearance Clear, Urine pH 5, Urine Specific [place] 1.015, Urine Protein Negative, Urine Glucose (UA) 4+H, Urine Ketones Negative, Urine Blood Negative, Urine Nitrite Negative, Urine Bilirubin Negative , Urine Urobilinogen Normal, Urine Leukocyte Esterase Negative, Urine RBC 0, Urine WBC 0, Urine Squamous Epithelial Cells None, Urine Bacteria None 11/22/18 04:45: White Blood Count 6.5, Red Blood Count 5.42, Hemoglobin 14.9, Hematocrit 46.1, Mean Corpuscular Volume 85, Mean Corpuscular Hemoglobin 27.5, Mean Corpuscular Hemoglobin Concent 32.3, Red Cell Distribution Width 14.0, Platelet Count 281, Mean Platelet Volume 5.8L, Neutrophils (%) (Auto) 75.6H, Lymphocytes (%) (Auto) 16.6L, Monocytes (%) (Auto) 5.0, Eosinophils (%) (Auto) 2.2, Basophils (%) (Auto ) 0.6, Sodium Level 130L, Potassium Level 5.5H, Chloride Level 95L, Carbon Dioxide Level 28, Anion Gap 7, Blood Urea Nitrogen 33H, Creatinine 2.0H, Estimat Glomerular Filtration Rate 35.5, Glucose Level 331H, Hemoglobin A1c 11.5H, Uric Acid 7.1, Calcium Level 9.3, Phosphorus Level 3.9, Magnesium Level 2.0, Iron Level 65, Total Iron Binding Capacity 285, Percent Iron Saturation 23 , Unsaturated Iron Binding 220, Ferritin 233, Total Bilirubin 0.2, Gamma Glutamyl Transpeptidase 88H, Aspartate Amino Transf (AST/SGOT) 32, Alanine Aminotransferase (ALT/SGPT) 47, Alkaline Phosphatase 149H, Total Creatine Kinase 76, Troponin I 0.000, Pro-B-Type Natriuretic Peptide 41, Total Protein 8.5H, Albumin 3.1L, Globulin 5.4, Albumin/Globulin Ratio 0.6L, Triglycerides Level 247H, Cholesterol Level 140, LDL Cholesterol 79, HDL Cholesterol 26L, Cholesterol/HDL Ratio 5.4H, Vitamin B12 Level 761, Folate 17.3, Thyroid Stimulating Hormone (TSH) 1.021 Height (Feet): 5 Height (Inches): 9.00 Weight (Pounds): 235 General Appearance: no apparent distress Cardiovascular: normal rate Respiratory/Chest: lungs clear Abdomen: soft Ernesto Frost MD Nov 22, 2018 10:33
--- NOTE | 2018-11-22 10:35 | NUR ---
NURSE NOTES: Patient requested to have a debridement on his left foot wound, also to increase his Lemir to 45 unit, I communicated patient's request to Dr Haas. Waiting for order.
--- NOTE | 2018-11-22 11:33 | NUR ---
NURSE NOTES: I called Dr Frost office and spoke with Ivelisse regarding patient's refusal to take Kayexalate.
[2018-11-22 12:00] VITALS: BP_SYST 109; BP_SYST 125; BP_DIAS 77; BP_DIAS 84
[2018-11-22] MEDS ORDERED: LEVEMIR FL100 UNIT/1 SUBQ (12:21)
--- NOTE | 2018-11-22 14:29 | NUR ---
DISCHARGE PLANNING PATIENT HAS BEEN REFERRED BACK TO: [facility] P:[phone] F:[phone]
--- NOTE | 2018-11-22 14:41 | Consultation ---
History of Present Illness General Date patient seen: Nov 21, 2018 Chief Complaint: Headache Present Illness HPI 48-year-old male with a history of anxiety, depression "pathological gambling", uncontrolled diabetes with Charcot foot, [facility]. the pt is noncompliant with meds and stated that he has many psychological issues. the pt is on seroquel and lexapro. he cont to be depressed and stated that he doesnt care about his health. the pt is not suicidal not homicidal Allergies: Coded Allergies: METFORMIN (Verified Allergy, Unknown, 10/09/18) Vomiting Medication History Scheduled Ascorbic Acid* (Vitamin C*), 250 MG ORAL DAILY, (Reported) Atorvastatin Calcium* (Lipitor*), 40 MG ORAL BEDTIME, (Reported) Docusate Sodium* (Docusate Sodium*), 100 MG ORAL TWICE A DAY, (Reported) Escitalopram Oxalate* (Lexapro*), 10 MG ORAL DAILY, (Reported) Gabapentin* (Neurontin*), 300 MG ORAL THREE TIMES A DAY, (Reported) Insulin Detemir (Levemir), 45 UNITS SUBQ BID, (Reported) Insulin Lispro (Humalog), 15 UNITS SUBQ TIAC, (Reported) Lisinopril (Lisinopril*), 20 MG ORAL DAILY, (Reported) Multivitamin With Minerals (Multivitamins With Minerals*), 1 TAB ORAL BID, ( Reported) Quetiapine Fumarate* (Seroquel*), 100 MG ORAL TWICE A DAY, (Reported) Ranitidine HCl (Ranitidine HCl), 150 MG PO BID, (Reported) Scheduled PRN Acetaminophen* (Acetaminophen 325MG Tablet*), 650 MG ORAL Q4H PRN for Mild Pain (Pain Scale 1-3), (Reported) Bisacodyl (Bisacodyl), 10 MG RC DAILY PRN for Constipation, (Reported) Dextromethorphan Hbr/B-[place]yler (Cepacol Sorethroat-Cough [place]*), 1 LOZENGE ORAL Q6H PRN for For Cough, (Reported) Guaifenesin/Dextromethorphan (Guaifenesin Dm Syrup), 10 ML PO Q6HR PRN for For Cough, (Reported) Ibuprofen* (Motrin*), 600 MG ORAL Q6H PRN for For Pain, (Reported) Loperamide Hcl (Loperamide), 2 MG PO Q4HR PRN for Diarrhea, (Reported) Magnesium Hydroxide* (Milk Of Magnesia*), 30 ML ORAL DAILY PRN for Constipation, (Reported) Na Phos,M-B/Na Phos,Di-Ba* (Fleet Enema*), 133 ML RECTAL DAILY PRN for Constipation, (Reported) Neomycin/Polymyxin/Dexameth (Maxitrol Eye Drops), 1 DROP LEFT EYE BID PRN for Dry Eyes, (Reported) Ondansetron* (Zofran*), 4 MG ORAL Q8HR PRN for Nausea & Vomiting, (Reported) Tramadol Hcl* (Ultram*), 50 MG ORAL Q8HR PRN for Severe Pain (Pain Scale 7-10), (Reported) Discontinued Medications Besifloxacin Hcl (Besivance), 5 ML LEFT EYE TID, (Reported) Discontinued Reason: Therapy completed Loteprednol Etabonate (Lotemax), 1 DROP LEFT EYE TID, (Reported) Discontinued Reason: Therapy completed Patient History Limited by: medical condition History Provided By: Patient, PMD Healthcare decision maker Resuscitation status Full Code Advanced Directive on File No Past Medical/Surgical History Past Medical/Surgical History: (1) Gastritis (2) Hyperglycemia (3) Periapical abscess (4) Poorly controlled diabetes mellitus (5) Pansinusitis (6) Diabetic nephropathy (7) Renal failure (ARF), acute on chronic (8) Hyperkalemia Review of Systems Psychiatric: Reports: prior hx, anxiety, depressed feelings, emotional problems Physical Exam General Appearance: no apparent distress, alert, obese Neurologic: oriented x 3, responsive, depressed affect Last 24 Hour Vital Signs Date Time Temp Pulse Resp B/P (MAP) Pulse Ox O2 Delivery O2 Flow Rate FiO2 11/22/18 12:00 97.0 70 20 125/84 (98) 95 11/22/18 09:00 Room Air 11/22/18 08:00 98.7 80 19 119/78 (92) 93 11/21/18 21:00 Room Air Intake and Output 11/21/18 11/22/18 18:59 06:59 Intake Total 480 ml 580 ml Balance 480 ml 580 ml Intake Oral 480 ml 360 ml IV Total 220 ml # Voids 3 2 Laboratory Tests Test 11/22/18 00:30 1/11/19 04:45 Urine Color Pale yellow Urine Appearance Clear Urine pH 5 (4.5-8.0) Urine Specific [place] 1.015 (1.005-1.035) Urine Protein Negative (NEGATIVE) Urine Glucose (UA) 4+ (NEGATIVE) H Urine Ketones Negative (NEGATIVE) Urine Blood Negative (NEGATIVE) Urine Nitrite Negative (NEGATIVE) Urine Bilirubin Negative (NEGATIVE) Urine Urobilinogen Normal MG/DL (0.0-1.0) Urine Leukocyte Esterase Negative (NEGATIVE) Urine RBC 0 /HPF (0 - 0) Urine WBC 0 /HPF (0 - 0) Urine Squamous Epithelial Cells None /LPF (NONE/OCC) Urine Bacteria None /HPF (NONE) White Blood Count 6.5 K/UL (4.8-10.8) Red Blood Count 5.42 M/UL (4.70-6.10) Hemoglobin 14.9 G/DL (14.2-18.0) Hematocrit 46.1 % (42.0-52.0) Mean Corpuscular Volume 85 FL (80-99) Mean Corpuscular Hemoglobin 27.5 PG (27.0-31.0) Mean Corpuscular Hemoglobin Concent 32.3 G/DL (32.0-36.0) Red Cell Distribution Width 14.0 % (11.6-14.8) Platelet Count 281 K/UL (150-450) Mean Platelet Volume 5.8 FL (6.5-10.1) L Neutrophils (%) (Auto) 75.6 % (45.0-75.0) H Lymphocytes (%) (Auto) 16.6 % (20.0-45.0) L Monocytes (%) (Auto) 5.0 % (1.0-10.0) Eosinophils (%) (Auto) 2.2 % (0.0-3.0) Basophils (%) (Auto) 0.6 % (0.0-2.0) Sodium Level 130 MMOL/L (136-145) L Potassium Level 5.5 MMOL/L (3.5-5.1) H Chloride Level 95 MMOL/L (98-107) L Carbon Dioxide Level 28 MMOL/L (21-32) Anion Gap 7 mmol/L (5-15) Blood Urea Nitrogen 33 mg/dL (7-18) H Creatinine 2.0 MG/DL (0.55-1.30) H Estimat Glomerular Filtration Rate 35.5 mL/min (>60) Glucose Level 331 MG/DL (74-106) H Hemoglobin A1c 11.5 % (4.3-6.0) H Uric Acid 7.1 MG/DL (2.6-7.2) Calcium Level 9.3 MG/DL (8.5-10.1) Phosphorus Level 3.9 MG/DL (2.5-4.9) Magnesium Level 2.0 MG/DL (1.8-2.4) Iron Level 65 ug/dL (50-175) Total Iron Binding Capacity 285 ug/dL (250-450) Percent Iron Saturation 23 % (15-50) Unsaturated Iron Binding 220 ug/dL (112-346) Ferritin 233 NG/ML (8-388) Total Bilirubin 0.2 MG/DL (0.2-1.0) Gamma Glutamyl Transpeptidase 88 U/L (5-85) H Aspartate Amino Transf (AST/SGOT) 32 U/L (15-37) Alanine Aminotransferase (ALT/SGPT) 47 U/L (12-78) Alkaline Phosphatase 149 U/L (46-116) H Total Creatine Kinase 76 U/L (26-308) Troponin I 0.000 ng/mL (0.000-0.056) Pro-B-Type Natriuretic Peptide 41 pg/mL (0-125) Total Protein 8.5 G/DL (6.4-8.2) H Albumin 3.1 G/DL (3.4-5.0) L Globulin 5.4 g/dL Albumin/Globulin Ratio 0.6 (1.0-2.7) L Triglycerides Level 247 MG/DL (30-150) H Cholesterol Level 140 MG/DL (< 200) LDL Cholesterol 79 mg/dL (<100) HDL Cholesterol 26 MG/DL (40-60) L Cholesterol/HDL Ratio 5.4 (3.3-4.4) H Vitamin B12 Level 761 PG/ML (193-986) Folate 17.3 NG/ML (8.6-58.9) Thyroid Stimulating Hormone (TSH) 1.021 uiU/mL (0.358-3.740) Height (Feet): 5 Height (Inches): 9.00 Weight (Pounds): 235 Medications Current Medications Medications (Trade) Dose Ordered Sig/Aylin Route PRN Reason Start Time Stop Time Status Last Admin Dose Admin Acetaminophen/ Hydrocodone Bitart ([place] 5/325) 1 tab Q4H PRN ORAL Moderate Pain (Pain Scale 4-6) 11/21/18 03:45 11/28/18 03:44 11/22/18 05:52 Ampicillin Sodium/ Sulbactam Sodium 3 gm/Sodium Chloride 110 ml @ 220 mls/hr Q8HR IVPB 11/21/18 22:00 11/28/18 21:59 11/22/18 13:17 Atorvastatin Calcium (Lipitor) 10 mg BEDTIME ORAL 11/21/18 21:00 12/21/18 20:59 Dextrose (Dextrose 50%) 25 ml Q30M PRN IV Hypoglycemia 11/22/18 07:00 12/22/18 06:59 Dextrose (Dextrose 50%) 50 ml Q30M PRN IV Hypoglycemia 11/22/18 07:00 12/22/18 06:59 Docusate Sodium (Colace) 100 mg TID ORAL 11/21/18 13:00 12/21/18 08:59 Enoxaparin Sodium (Lovenox) 40 mg DAILY SUBQ 11/21/18 09:00 12/21/18 08:59 Escitalopram Oxalate (Lexapro) 10 mg DAILY ORAL 11/21/18 09:00 12/21/18 08:59 11/22/18 09:32 Gabapentin (Neurontin) 300 mg THREE TIMES A DAY ORAL 11/21/18 09:00 12/21/18 08:59 11/22/18 13:17 Insulin Aspart (NovoLOG) BEFORE MEALS AND HS SUBQ 11/22/18 11:30 12/22/18 11:29 11/22/18 11:47 Insulin Aspart (NovoLOG) 10 units NOVOTIAC SUBQ 11/22/18 07:00 12/22/18 06:59 11/22/18 11:46 Insulin Detemir (Levemir) 25 units BID SUBQ 11/22/18 09:00 12/22/18 08:59 11/22/18 09:00 Iopamidol (Isovue-300 100ml) 100 ml NOW PRN INJ Radiology Procedure 11/20/18 19:30 11/22/18 19:24 Loperamide HCl (Imodium) 2 mg Q4H PRN ORAL Diarrhea 11/21/18 05:00 12/21/18 04:59 Magnesium Hydroxide (Mom) 30 ml DAILYPRN PRN ORAL Constipation 11/21/18 05:00 12/21/18 04:59 Multivitamins (Multivitamins) 1 tab DAILY ORAL 11/21/18 09:00 12/21/18 08:59 Ondansetron HCl (Zofran) 4 mg EVERY 8 HOURS PRN ORAL Nausea & Vomiting 11/21/18 05:00 12/21/18 04:59 Pantoprazole (Protonix) 40 mg EVERY 12 HOURS ORAL 11/21/18 11:00 12/21/18 10:59 Quetiapine Fumarate (SEROquel) 100 mg BID ORAL 11/21/18 09:00 12/21/18 08:59 11/22/18 09:31 Tamsulosin HCl (Flomax) 0.4 mg BID ORAL 11/21/18 11:00 12/21/18 10:59 Assessment/Plan Problem List: (1) MDD (major depressive disorder), recurrent episode, moderate ICD Codes: F33.1 - Major depressive disorder, recurrent, moderate SNOMED: 50304073, 918879398 (2) Gambling disorder, episodic, moderate ICD Codes: F63.0 - Pathological gambling SNOMED: 57618113 (3) Anxiety disorder ICD Codes: F41.9 - Anxiety disorder, unspecified SNOMED: 872900683 Status: stable, progressing Assessment/Plan cont Lexapro cont Seroquel provided ro/Olena Dent MD Nov 22, 2018 14:41
--- NOTE | 2018-11-22 14:42 | General Progress Note ---
Assessment/Plan Problem List: (1) MDD (major depressive disorder), recurrent episode, moderate ICD Codes: F33.1 - Major depressive disorder, recurrent, moderate SNOMED: 39405741, 935327948 (2) Gambling disorder, episodic, moderate ICD Codes: F63.0 - Pathological gambling SNOMED: 49577746 (3) Anxiety disorder ICD Codes: F41.9 - Anxiety disorder, unspecified SNOMED: 875013848 Assessment/Plan cont Lexapro cont Seroquel provided ro/st. Subjective Date patient seen: Nov 22, 2018 Neurologic/Psychiatric: Reports: anxiety, depressed, emotional problems Allergies: Coded Allergies: METFORMIN (Verified Allergy, Unknown, 10/09/18) Vomiting Objective Last 24 Hour Vital Signs Date Time Temp Pulse Resp B/P (MAP) Pulse Ox O2 Delivery O2 Flow Rate FiO2 11/22/18 12:00 97.0 70 20 125/84 (98) 95 11/22/18 09:00 Room Air 11/22/18 08:00 98.7 80 19 119/78 (92) 93 11/21/18 21:00 Room Air Intake and Output 11/21/18 11/22/18 18:59 06:59 Intake Total 480 ml 580 ml Balance 480 ml 580 ml Intake Oral 480 ml 360 ml IV Total 220 ml # Voids 3 2 Laboratory Tests 11/22/18 00:30: Urine Color Pale yellow, Urine Appearance Clear, Urine pH 5, Urine Specific [place] 1.015, Urine Protein Negative, Urine Glucose (UA) 4+H, Urine Ketones Negative, Urine Blood Negative, Urine Nitrite Negative, Urine Bilirubin Negative , Urine Urobilinogen Normal, Urine Leukocyte Esterase Negative, Urine RBC 0, Urine WBC 0, Urine Squamous Epithelial Cells None, Urine Bacteria None 11/22/18 04:45: White Blood Count 6.5, Red Blood Count 5.42, Hemoglobin 14.9, Hematocrit 46.1, Mean Corpuscular Volume 85, Mean Corpuscular Hemoglobin 27.5, Mean Corpuscular Hemoglobin Concent 32.3, Red Cell Distribution Width 14.0, Platelet Count 281, Mean Platelet Volume 5.8L, Neutrophils (%) (Auto) 75.6H, Lymphocytes (%) (Auto) 16.6L, Monocytes (%) (Auto) 5.0, Eosinophils (%) (Auto) 2.2, Basophils (%) (Auto ) 0.6, Sodium Level 130L, Potassium Level 5.5H, Chloride Level 95L, Carbon Dioxide Level 28, Anion Gap 7, Blood Urea Nitrogen 33H, Creatinine 2.0H, Estimat Glomerular Filtration Rate 35.5, Glucose Level 331H, Hemoglobin A1c 11.5H, Uric Acid 7.1, Calcium Level 9.3, Phosphorus Level 3.9, Magnesium Level 2.0, Iron Level 65, Total Iron Binding Capacity 285, Percent Iron Saturation 23 , Unsaturated Iron Binding 220, Ferritin 233, Total Bilirubin 0.2, Gamma Glutamyl Transpeptidase 88H, Aspartate Amino Transf (AST/SGOT) 32, Alanine Aminotransferase (ALT/SGPT) 47, Alkaline Phosphatase 149H, Total Creatine Kinase 76, Troponin I 0.000, Pro-B-Type Natriuretic Peptide 41, Total Protein 8.5H, Albumin 3.1L, Globulin 5.4, Albumin/Globulin Ratio 0.6L, Triglycerides Level 247H, Cholesterol Level 140, LDL Cholesterol 79, HDL Cholesterol 26L, Cholesterol/HDL Ratio 5.4H, Vitamin B12 Level 761, Folate 17.3, Thyroid Stimulating Hormone (TSH) 1.021 Height (Feet): 5 Height (Inches): 9.00 Weight (Pounds): 235 General Appearance: WD/WN, no apparent distress, alert, obese Neurologic: oriented x 3, responsive, depressed affect Olena Diaz MD Nov 22, 2018 14:42
[2018-11-22 16:00] VITALS: BP 137/87
--- NOTE | 2018-11-22 16:30 | NUR ---
DISCHARGED PLANNED PATIENT IS DISCHARGE TO: [facility] ROOM#[id number] SKILLED T: [phone] FOR NURSE TO NURSE REPORT [facility] HAS BEEN ARRANGED FOR PLUMBER ASSISTANT 1730 S/W SAMI [id number]
[2018-11-22] MEDS ORDERED: MUPIROCIN22 GM TOPIC ×2 (17:20→19:38)
[2018-11-22] MEDS ORDERED: MUPIROCIN5 GM MISC (17:20)
--- NOTE | 2018-11-22 18:23 | NUR ---
NURSE NOTES: Attempted to give report to [facility] regarding patient. Charge nurse, Almaz is aware.
--- NOTE | 2018-11-22 18:27 | NUR ---
NURSE NOTES: spoke with nurse Alvarez regarding pt coming positive MRSA nares. per nurse, will accept patient. Patient will go with Bactroban oint TID x7days per Dr. Haas.
--- NOTE | 2018-11-22 18:38 | General Progress Note ---
Assessment/Plan Problem List: (1) Poorly controlled diabetes mellitus ICD Codes: E11.65 - Type 2 diabetes mellitus with hyperglycemia SNOMED: 959878673, 76048191 (2) Periapical abscess ICD Codes: K04.7 - Periapical abscess without sinus SNOMED: 503541285 Assessment/Plan increase Levemir to 35 units bid increase Novolog to 15 units ac tid continue NISS Subjective Allergies: Coded Allergies: METFORMIN (Verified Allergy, Unknown, 10/09/18) Vomiting All Systems: reviewed and negative except above Subjective events noted glucose values are elevated Objective Last 24 Hour Vital Signs Date Time Temp Pulse Resp B/P (MAP) Pulse Ox O2 Delivery O2 Flow Rate FiO2 11/22/18 16:00 98.4 82 20 137/87 (104) 95 11/22/18 12:00 97.0 70 20 125/84 (98) 95 11/22/18 09:00 Room Air 11/22/18 08:00 98.7 80 19 119/78 (92) 93 11/21/18 21:00 Room Air Intake and Output 11/21/18 11/22/18 18:59 06:59 Intake Total 480 ml 580 ml Balance 480 ml 580 ml Intake Oral 480 ml 360 ml IV Total 220 ml # Voids 3 2 Laboratory Tests 11/22/18 00:30: Urine Color Pale yellow, Urine Appearance Clear, Urine pH 5, Urine Specific [place] 1.015, Urine Protein Negative, Urine Glucose (UA) 4+H, Urine Ketones Negative, Urine Blood Negative, Urine Nitrite Negative, Urine Bilirubin Negative , Urine Urobilinogen Normal, Urine Leukocyte Esterase Negative, Urine RBC 0, Urine WBC 0, Urine Squamous Epithelial Cells None, Urine Bacteria None 11/22/18 04:45: White Blood Count 6.5, Red Blood Count 5.42, Hemoglobin 14.9, Hematocrit 46.1, Mean Corpuscular Volume 85, Mean Corpuscular Hemoglobin 27.5, Mean Corpuscular Hemoglobin Concent 32.3, Red Cell Distribution Width 14.0, Platelet Count 281, Mean Platelet Volume 5.8L, Neutrophils (%) (Auto) 75.6H, Lymphocytes (%) (Auto) 16.6L, Monocytes (%) (Auto) 5.0, Eosinophils (%) (Auto) 2.2, Basophils (%) (Auto ) 0.6, Sodium Level 130L, Potassium Level 5.5H, Chloride Level 95L, Carbon Dioxide Level 28, Anion Gap 7, Blood Urea Nitrogen 33H, Creatinine 2.0H, Estimat Glomerular Filtration Rate 35.5, Glucose Level 331H, Hemoglobin A1c 11.5H, Uric Acid 7.1, Calcium Level 9.3, Phosphorus Level 3.9, Magnesium Level 2.0, Iron Level 65, Total Iron Binding Capacity 285, Percent Iron Saturation 23 , Unsaturated Iron Binding 220, Ferritin 233, Total Bilirubin 0.2, Gamma Glutamyl Transpeptidase 88H, Aspartate Amino Transf (AST/SGOT) 32, Alanine Aminotransferase (ALT/SGPT) 47, Alkaline Phosphatase 149H, Total Creatine Kinase 76, Troponin I 0.000, Pro-B-Type Natriuretic Peptide 41, Total Protein 8.5H, Albumin 3.1L, Globulin 5.4, Albumin/Globulin Ratio 0.6L, Triglycerides Level 247H, Cholesterol Level 140, LDL Cholesterol 79, HDL Cholesterol 26L, Cholesterol/HDL Ratio 5.4H, Vitamin B12 Level 761, Folate 17.3, Thyroid Stimulating Hormone (TSH) 1.021 Height (Feet): 5 Height (Inches): 9.00 Weight (Pounds): 235 General Appearance: no apparent distress Neck: normal alignment Cardiovascular: normal rate Respiratory/Chest: chest wall non-tender Abdomen: normal bowel sounds Objective Current Medications Medications (Trade) Dose Ordered Sig/Alyin Route PRN Reason Start Time Stop Time Status Last Admin Dose Admin Acetaminophen/ Hydrocodone Bitart ([place] 5/325) 1 tab Q4H PRN ORAL Moderate Pain (Pain Scale 4-6) 11/21/18 03:45 11/28/18 03:44 11/22/18 18:10 Ampicillin Sodium/ Sulbactam Sodium 3 gm/Sodium Chloride 110 ml @ 220 mls/hr Q8HR IVPB 11/21/18 22:00 11/28/18 21:59 11/22/18 13:17 Atorvastatin Calcium (Lipitor) 10 mg BEDTIME ORAL 11/21/18 21:00 12/21/18 20:59 Dextrose (Dextrose 50%) 25 ml Q30M PRN IV Hypoglycemia 11/22/18 07:00 12/22/18 06:59 Dextrose (Dextrose 50%) 50 ml Q30M PRN IV Hypoglycemia 11/22/18 07:00 12/22/18 06:59 Docusate Sodium (Colace) 100 mg TID ORAL 11/21/18 13:00 12/21/18 08:59 Enoxaparin Sodium (Lovenox) 40 mg DAILY SUBQ 11/21/18 09:00 12/21/18 08:59 Escitalopram Oxalate (Lexapro) 10 mg DAILY ORAL 11/21/18 09:00 12/21/18 08:59 11/22/18 09:32 Gabapentin (Neurontin) 300 mg THREE TIMES A DAY ORAL 11/21/18 09:00 12/21/18 08:59 11/22/18 18:02 Insulin Aspart (NovoLOG) BEFORE MEALS AND HS SUBQ 11/22/18 11:30 12/22/18 11:29 11/22/18 16:48 Insulin Aspart (NovoLOG) 10 units NOVOTIAC SUBQ 11/22/18 07:00 12/22/18 06:59 11/22/18 16:47 Insulin Detemir (Levemir) 25 units BID SUBQ 11/22/18 09:00 12/22/18 08:59 11/22/18 18:03 Iopamidol (Isovue-300 100ml) 100 ml NOW PRN INJ Radiology Procedure 11/20/18 19:30 11/22/18 19:24 Loperamide HCl (Imodium) 2 mg Q4H PRN ORAL Diarrhea 11/21/18 05:00 12/21/18 04:59 Magnesium Hydroxide (Mom) 30 ml DAILYPRN PRN ORAL Constipation 11/21/18 05:00 12/21/18 04:59 Multivitamins (Multivitamins) 1 tab DAILY ORAL 11/21/18 09:00 12/21/18 08:59 Ondansetron HCl (Zofran) 4 mg EVERY 8 HOURS PRN ORAL Nausea & Vomiting 11/21/18 05:00 12/21/18 04:59 Pantoprazole (Protonix) 40 mg EVERY 12 HOURS ORAL 11/21/18 11:00 12/21/18 10:59 Quetiapine Fumarate (SEROquel) 100 mg BID ORAL 11/21/18 09:00 12/21/18 08:59 11/22/18 18:01 Tamsulosin HCl (Flomax) 0.4 mg BID ORAL 11/21/18 11:00 12/21/18 10:59 Item Value Date Time Bedside Blood Glucose 303 mg/dl H 11/22/18 1803 Bedside Blood Glucose 324 mg/dl H 11/22/18 1147 Bedside Blood Glucose 303 mg/dl H 11/22/18 0900 Bedside Blood Glucose 303 mg/dl H 11/22/18 0645 Bedside Blood Glucose 348 mg/dl H 11/21/18 2128 Bedside Blood Glucose 373 mg/dl H 11/21/18 1302 Binh Borges MD Nov 22, 2018 18:38
[2018-11-22] MEDS ORDERED: AUGMENTIN 875-1 EAC1 ORAL (19:32)
--- NOTE | 2018-11-22 19:33 | Infectious Diseases Prog Note ---
Assessment/Plan Problems: (1) Pansinusitis Assessment & Plan: mainly on the left will continue unazyn empirically to cover for infection , recommend ENT eval to rule out malignant process (2) Periapical abscess Assessment & Plan: suspect root canal infection, continue unasyn empirically , recommend referral to dentist or oral surgeon for further evaluation and root canal work (3) Poorly controlled diabetes mellitus Assessment & Plan: recommend tight glycemic control to keep blood glucose between 100-140 Subjective Constitutional: Reports: no symptoms HEENT: Reports: visual change, other - facial pain and swelling Respiratory: Reports: no symptoms Breasts: Reports: no symptoms Cardiovascular: Reports: no symptoms Gastrointestinal/Abdominal: Reports: no symptoms Genitourinary: Reports: no symptoms Neurologic: Reports: no symptoms Psychiatric: Reports: no symptoms Skin: Reports: ulcer Endocrine: Reports: no symptoms Hematologic: Reports: no symptoms Musculoskeletal: Reports: no symptoms Allergies: Coded Allergies: METFORMIN (Verified Allergy, Unknown, 10/09/18) Vomiting Objective Vital Signs Last 24 Hour Vital Signs Date Time Temp Pulse Resp B/P (MAP) Pulse Ox O2 Delivery O2 Flow Rate FiO2 11/22/18 18:40 98.4 11/22/18 16:00 98.4 82 20 137/87 (104) 95 11/22/18 12:00 97.0 70 20 125/84 (98) 95 11/22/18 09:00 Room Air 11/22/18 08:00 98.7 80 19 119/78 (92) 93 11/21/18 21:00 Room Air Height (Feet): 5 Height (Inches): 9.00 Weight (Pounds): 235 General Appearance: WD/WN, no acute distress HEENT: atraumatic, anicteric, mucous membranes moist, pharynx normal, supple, no JVD, other - facial swelling , molars decays Respiratory/Chest: chest wall non-tender, lungs clear, normal breath sounds, no respiratory distress, no accessory muscle use Cardiovascular: normal peripheral pulses, normal rate, regular rhythm, no gallop/murmur, no JVD Abdomen: normal bowel sounds, soft, non tender, no organomegaly, non distended , no mass, no scars Genitourinary: normal external genitalia Extremities: no cyanosis, no clubbing Skin: no rash, no lesions, ulcers Neurologic/Psychiatric: alert, oriented x 3, responsive Lymphatic: no neck adenopathy, no groin adenopathy Musculoskeletal: normal muscle bulk, no effusion Microbiology Date/Time Source Procedure Growth Status 11/21/18 00:25 Nasal Nares MRSA Culture - Final Staphylococcus Aureus - Mrsa Complete Laboratory Tests Test 11/22/18 00:30 11/22/18 04:45 Urine Color Pale yellow Urine Appearance Clear Urine pH 5 (4.5-8.0) Urine Specific [place] 1.015 (1.005-1.035) Urine Protein Negative (NEGATIVE) Urine Glucose (UA) 4+ (NEGATIVE) H Urine Ketones Negative (NEGATIVE) Urine Blood Negative (NEGATIVE) Urine Nitrite Negative (NEGATIVE) Urine Bilirubin Negative (NEGATIVE) Urine Urobilinogen Normal MG/DL (0.0-1.0) Urine Leukocyte Esterase Negative (NEGATIVE) Urine RBC 0 /HPF (0 - 0) Urine WBC 0 /HPF (0 - 0) Urine Squamous Epithelial Cells None /LPF (NONE/OCC) Urine Bacteria None /HPF (NONE) White Blood Count 6.5 K/UL (4.8-10.8) Red Blood Count 5.42 M/UL (4.70-6.10) Hemoglobin 14.9 G/DL (14.2-18.0) Hematocrit 46.1 % (42.0-52.0) Mean Corpuscular Volume 85 FL (80-99) Mean Corpuscular Hemoglobin 27.5 PG (27.0-31.0) Mean Corpuscular Hemoglobin Concent 32.3 G/DL (32.0-36.0) Red Cell Distribution Width 14.0 % (11.6-14.8) Platelet Count 281 K/UL (150-450) Mean Platelet Volume 5.8 FL (6.5-10.1) L Neutrophils (%) (Auto) 75.6 % (45.0-75.0) H Lymphocytes (%) (Auto) 16.6 % (20.0-45.0) L Monocytes (%) (Auto) 5.0 % (1.0-10.0) Eosinophils (%) (Auto) 2.2 % (0.0-3.0) Basophils (%) (Auto) 0.6 % (0.0-2.0) Sodium Level 130 MMOL/L (136-145) L Potassium Level 5.5 MMOL/L (3.5-5.1) H Chloride Level 95 MMOL/L (98-107) L Carbon Dioxide Level 28 MMOL/L (21-32) Anion Gap 7 mmol/L (5-15) Blood Urea Nitrogen 33 mg/dL (7-18) H Creatinine 2.0 MG/DL (0.55-1.30) H Estimat Glomerular Filtration Rate 35.5 mL/min (>60) Glucose Level 331 MG/DL (74-106) H Hemoglobin A1c 11.5 % (4.3-6.0) H Uric Acid 7.1 MG/DL (2.6-7.2) Calcium Level 9.3 MG/DL (8.5-10.1) Phosphorus Level 3.9 MG/DL (2.5-4.9) Magnesium Level 2.0 MG/DL (1.8-2.4) Iron Level 65 ug/dL (50-175) Total Iron Binding Capacity 285 ug/dL (250-450) Percent Iron Saturation 23 % (15-50) Unsaturated Iron Binding 220 ug/dL (112-346) Ferritin 233 NG/ML (8-388) Total Bilirubin 0.2 MG/DL (0.2-1.0) Gamma Glutamyl Transpeptidase 88 U/L (5-85) H Aspartate Amino Transf (AST/SGOT) 32 U/L (15-37) Alanine Aminotransferase (ALT/SGPT) 47 U/L (12-78) Alkaline Phosphatase 149 U/L (46-116) H Total Creatine Kinase 76 U/L (26-308) Troponin I 0.000 ng/mL (0.000-0.056) Pro-B-Type Natriuretic Peptide 41 pg/mL (0-125) Total Protein 8.5 G/DL (6.4-8.2) H Albumin 3.1 G/DL (3.4-5.0) L Globulin 5.4 g/dL Albumin/Globulin Ratio 0.6 (1.0-2.7) L Triglycerides Level 247 MG/DL (30-150) H Cholesterol Level 140 MG/DL (< 200) LDL Cholesterol 79 mg/dL (<100) HDL Cholesterol 26 MG/DL (40-60) L Cholesterol/HDL Ratio 5.4 (3.3-4.4) H Vitamin B12 Level 761 PG/ML (193-986) Folate 17.3 NG/ML (8.6-58.9) Thyroid Stimulating Hormone (TSH) 1.021 uiU/mL (0.358-3.740) Current Medications Medications (Trade) Dose Ordered Sig/Aylin Route PRN Reason Start Time Stop Time Status Last Admin Dose Admin Acetaminophen/ Hydrocodone Bitart ([place] 5/325) 1 tab Q4H PRN ORAL Moderate Pain (Pain Scale 4-6) 11/21/18 03:45 11/28/18 03:44 11/22/18 18:10 Ampicillin Sodium/ Sulbactam Sodium 3 gm/Sodium Chloride 110 ml @ 220 mls/hr Q8HR IVPB 11/21/18 22:00 11/28/18 21:59 11/22/18 13:17 Atorvastatin Calcium (Lipitor) 10 mg BEDTIME ORAL 11/21/18 21:00 12/21/18 20:59 Dextrose (Dextrose 50%) 25 ml Q30M PRN IV Hypoglycemia 11/22/18 07:00 12/22/18 06:59 Dextrose (Dextrose 50%) 50 ml Q30M PRN IV Hypoglycemia 11/22/18 07:00 12/22/18 06:59 Docusate Sodium (Colace) 100 mg TID ORAL 11/21/18 13:00 12/21/18 08:59 Enoxaparin Sodium (Lovenox) 40 mg DAILY SUBQ 11/21/18 09:00 12/21/18 08:59 Escitalopram Oxalate (Lexapro) 10 mg DAILY ORAL 11/21/18 09:00 12/21/18 08:59 11/22/18 09:32 Gabapentin (Neurontin) 300 mg THREE TIMES A DAY ORAL 11/21/18 09:00 12/21/18 08:59 11/22/18 18:02 Insulin Aspart (NovoLOG) BEFORE MEALS AND HS SUBQ 11/22/18 11:30 12/22/18 11:29 11/22/18 16:48 Insulin Aspart (NovoLOG) 15 units NOVOTIAC SUBQ 11/23/18 06:30 12/22/18 06:59 Insulin Detemir (Levemir) 35 units Q12HR SUBQ 11/23/18 09:00 12/23/18 08:59 Loperamide HCl (Imodium) 2 mg Q4H PRN ORAL Diarrhea 11/21/18 05:00 12/21/18 04:59 Magnesium Hydroxide (Mom) 30 ml DAILYPRN PRN ORAL Constipation 11/21/18 05:00 12/21/18 04:59 Multivitamins (Multivitamins) 1 tab DAILY ORAL 11/21/18 09:00 12/21/18 08:59 Ondansetron HCl (Zofran) 4 mg EVERY 8 HOURS PRN ORAL Nausea & Vomiting 11/21/18 05:00 12/21/18 04:59 Pantoprazole (Protonix) 40 mg EVERY 12 HOURS ORAL 11/21/18 11:00 12/21/18 10:59 Quetiapine Fumarate (SEROquel) 100 mg BID ORAL 11/21/18 09:00 12/21/18 08:59 11/22/18 18:01 Tamsulosin HCl (Flomax) 0.4 mg BID ORAL 11/21/18 11:00 12/21/18 10:59 Kwasi Martinez M.D. Nov 22, 2018 19:33
[2018-11-22 20:00] VITALS: BP 115/76
--- NOTE | 2018-11-22 20:02 | NUR ---
HAND-OFF: Report given to PACO Stephen.
--- NOTE | 2018-11-22 20:20 | NUR ---
NURSE NOTES: Received report from PACO Bob. Patient in stable condition. Being discharged to [facility]. Day shift RN unable to get in contact with receiving nurse at facility for report. Will follow up with another call.
--- NOTE | 2018-11-22 20:45 | NUR ---
NURSE NOTES: Called [facility] and gave report to charge nurse JOEY Burns. Will follow up with ambulance service for ETA,
--- NOTE | 2018-11-22 20:49 | NUR ---
NURSE NOTES: Called [facility] for ETA. Already on the way and should be arriving shortly.
--- NOTE | 2018-11-22 21:40 | NUR ---
NURSE NOTES: Patient DC to [facility][1] via [facility] unit 625. Report given to Jesus Hurtado and Kaycee Carvalho.
[2018-11-23] MEDS ORDERED: NovoLOG Insulin Flexpen SUBQ SCH (06:30)
[2018-11-23] MEDS ORDERED: Levemir Flexpen SUBQ SCH (09:00)
--- NOTE | 2018-11-24 10:47 | Discharge Summary ---
Discharge Summary Discharge Summary _ DATE OF ADMISSION: 11/20/2018 DATE OF DISCHARGE: 11/22/2018 DISCHARGED BY:Dr. Haas REASON FOR ADMISSION: 48 years old male with past medical history of hypertension, diabetes mellitus type 2, peripheral vascular disease, presented with pain in the right lower molar. Patient seen the dentist and undergone root canal workup. Patient continued to have pain with radiation to his head. He denied fever and chills. Upon evaluation vital signs were stable . Laboratory workup revealed no leukocytosis, stable hemoglobin hematocrit. Potassium 6.1. BUN 27, creatinine 2.0. Glucose 380. CT of the head revealed no evidence of acute intracranial bleeding or mass- effect. Evidence of sinus disease demonstrated. CT of facial bones revealed dental disease , predominantly involving the right second mandibular molar. Extensive left-sided pansinusitis. Adenoidal prominence. Patient was admitted for further management. CONSULTANTS: ID specialist Dr. Martinez branch operations manager Dr. Frost psychiatrist civil engineering assistant Dr. Borges [facility] COURSE: Patient admitted to medical surgical floor and started on empiric antibiotics. ID specialist closely followed. Antibiotic regimen optimized as per ID recommendation. Patient was on Unasyn empirically to cover for pansinusitis and periapical abscess. No leukocytosis , no fever. Blood cultures were negative. Infectious disease specialist recommended ENT evaluation for pansinusitis to rule out malignant process and referral to dentist or oral surgeon for further evaluation and root canal workup. [facility] facility medications were resumed. Brush Trimming Machine Setter consulted for evidence of renal failure. Electrolytes corrected as needed. Hyperkalemia was treated with Kayexalate. Renal parameters and electrolytes were closely monitored. Nephrotoxins were avoided. Anti-inflammatory and BALJINDER inhibitor stopped. Mat Puncher followed. Blood sugar was managed with long-acting Levemir twice a day, short acting NovoLog pre-meal 3 times a day and sliding scale of insulin as needed. Hemoglobin A1c 11.5. Patient was counseled on compliance with glycemic medication regimen and diabetic diet. Pain management was addressed. DVT and GI prophylaxis provided. Psychiatrist followed. Psychiatric medication regimen was optimized. Reality orientation and supportive therapy provided. Supportive care provided. Patient clinically stabilized and was ready for transfer back to alf facility for continuation of care FINAL DIAGNOSES: Hyperkalemia Diabetes mellitus out of control (hemoglobin A1c 11.5 ) Periapical abscess Pansinusitis Renal failure, acute on chronic Diabetic nephropathy Hypertension Charcot foot Major depressive disorder, recurrent episode, moderate Anxiety disorder Gambling disorder, episodic, moderate DISCHARGE MEDICATIONS: See Medication Reconciliation list. DISCHARGE INSTRUCTIONS: Patient was discharged to the alf facility. Follow up with medical doctor at the facility. I have been assigned to dictate discharge summary for this account. I was not involved in the patient's management. Trang Hillman NP Nov 24, 2018 10:47
== END 2018-11-22 21:40 | DRG 638 ==
LOC: EDBD 16:47 → EMR 17:40 → EDBEDREQ 21:14 → 4E 21:41 → EDBEDREQ 21:54
DX: E11.65 Type 2 diabetes mellitus with hyperglycemia (principal); N17.9 Acute kidney failure, unspecified; E87.1 Hypo-osmolality and hyponatremia; F33.1 Major depressive disorder, recurrent, moderate; E87.5 Hyperkalemia; K29.70 Gastritis, unspecified, without bleeding; I12.9 Hypertensive chronic kidney disease with stage 1 through stage 4 chronic kidney disease, or unspecified chronic kidney disease; E11.22 Type 2 diabetes mellitus with diabetic chronic kidney disease; N18.9 Chronic kidney disease, unspecified; K04.7 Periapical abscess without sinus; Z91.14 Patient's other noncompliance with medication regimen; J32.4 Chronic pansinusitis; E11.610 Type 2 diabetes mellitus with diabetic neuropathic arthropathy; F41.9 Anxiety disorder, unspecified; F63.0 Pathological gambling; E11.319 Type 2 diabetes mellitus with unspecified diabetic retinopathy without macular edema; I25.10 Atherosclerotic heart disease of native coronary artery without angina pectoris; Z88.8 Allergy status to other drugs, medicaments and biological substances
CPT/HCPCS: 36415; 70450; 70486; 80048; 80053; 80061; 81001; 82550; 82607; 82728; 82746; 82962; 82977; 83036; 83540; 83550; 83735; 83880; 84100; 84132; 84443; 84484; 84550; 85025; 85610; 85730; 86140; 87040; 87081; 93005; 96365; 99285; J1815; S0077; S5561

== ENCOUNTER 2019-06-01 14:56 | Inpatient (IN) | payer MEDICARE, OTHER ==
[~2019-06-01] VITALS: Ht 172.7 cm; Wt 96.2 kg
[~2019-06-01 14:56] MED LIST changes: +ACETAMINOPHEN325 M1 ORAL; +AUGMENTIN 875-1 EAC1 ORAL; +BISACODYL10 M1 RC; +CEPACOL SORETH1 EACH ORAL; +FLEET ENEMA133 ML RECTAL; +HUMALOG100 UNIT/4 SUBQ; +IBUPROFEN600 MG ORAL; +MAXITROL OPTH1 DROP LEFT EYE; +MUPIROCIN22 GM TOPIC; +MUPIROCIN5 GM MISC; +ROBITUSSIN DM5 ML PO; +TRAMADOL HCL50 MG ORAL
[2019-06-01 15:00] VITALS: BP 99/64
--- NOTE | 2019-06-01 15:00 | NUR ---
ED Nurse Note: Patient michael from [facility] c/o right leg swelling that srated yesterday. patient rpesents with a draining wound located on the bottom of his left foot. rates hisp ain a 4/10 pain. patients foot is nonpitting however is swelling. patient is alert and oriented x4. patient states that the swelling started because he wears his foot too tight
[2019-06-01] MEDS ORDERED: OMEPRAZOLE40 M1 ORAL (15:04)
[2019-06-01] MEDS ORDERED: oxyCODONE HCL/Acetaminophen 5/325mg ORAL ONE (15:15)
--- NOTE | 2019-06-01 15:45 | NUR ---
ED Nurse Note: patient refused CRE and VRE swab
--- NOTE | 2019-06-01 15:52 | Emergency Room Report ---
History of Present Illness General Chief Complaint: Edema Source: Patient, EMS Present Illness HPI The patient presents with redness and swelling of his right lower extremity. He also had chills yesterday. He was sent for evaluation for possible DVT versus infection. The patient is diabetic. His sugars have been fairly well controlled. He is in assisted living. He took some Seroquel to treat the chills and he says it helped. In addition he has a Charcot Rocio foot on the left-hand side that has a lesion. There has been some staining in his sock. He had a partial amputation of the lateral side of the left foot. He also had amputation of his big toe on the right-hand foot. He denies chest pain, hemoptysis, shortness of breath. He was nauseated 2 weeks ago but denies any nausea or vomiting at this time. He is moving his bowels without any difficulty. There is no dysuria. He states the pain is 6/10. Aching pain in his right leg. He has neuropathy. He has been taking either Tylenol with codeine or Sinclair to control the pain. He has a special shoe for his left foot. He has been walking more on it recently. He is been checked by arc welding machine operator and graphic design specialist. They said there is no drainage however there has been some staining in his sock recently. He said osteomyelitis in that foot in the past. His chronic renal insufficiency and is unable to take nonsteroidal anti- inflammatory medications. Patient has depression which is been fairly well controlled on medication. Denies suicidal homicidal ideation. Allergies: Coded Allergies: METFORMIN (Verified Allergy, Unknown, 10/09/18) Vomiting Patient History Past Medical History: see triage record Past Surgical History: other - Partial amputations bilateral feet Social History: Denies: smoking, alcohol use, drug use Social History Narrative [facility] Reviewed Nursing Documentation: PMH: Agreed; PSxH: Agreed Nursing Documentation-PMH Hx Cardiac Problems: Yes Hx Hypertension: Yes Hx Diabetes: Yes - type 2 Hx Cancer: No History Of Psychiatric Problem: Yes - BIPOLAR Hx Neurological Problems: Yes - pvd, Review of Systems All Other Systems: negative except mentioned in HPI Physical Exam Vital Signs Date Time Temp Pulse Resp B/P (MAP) Pulse Ox O2 Delivery O2 Flow Rate FiO2 06/01/19 14:57 98.1 82 18 99/64 (76) 93 Room Air Sp02 EP Interpretation: reviewed, normal General Appearance: well appearing, no apparent distress, GCS 15 Head: normocephalic Eyes: bilateral eye normal inspection, bilateral eye PERRL, bilateral eye EOMI ENT: moist mucus membranes Neck: supple Respiratory: lungs clear, normal breath sounds Cardiovascular #1: regular rate, rhythm Cardiovascular #2: 2+ radial (R), 2+ dorsalis pedis (R), 2+ dorsalis pedis (L) Gastrointestinal: normal inspection, normal bowel sounds, non tender, no mass, non-distended Genitourinary: no CVA tenderness Musculoskeletal: back normal, no calf tenderness, other - charcot rocio foot L with lesion sole, post amputation laterally. R with big toe amp 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, oriented x3, motor strength/tone normal, other - peripheral neuropathy Psychiatric: other - flat affect Skin: other - Erythema right lower leg anterior tibia, open lesion bottom of mid left foot with deformity, there is drainage from the open lesion. The dorsum of the foot is also erythematous but this looks more vascular. Medical Decision Making Diagnostic Impression: Primary Impression: Cellulitis Qualified Codes: L03.115 - Cellulitis of right lower limb Additional Impressions: 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 Qualified Codes: E10.621 - Type 1 diabetes mellitus with foot ulcer; L97.422 - Non-pressure chronic ulcer of left heel and midfoot with fat layer exposed Renal insufficiency Poorly controlled diabetes mellitus ER Course Patient presents with erythema and swelling of his right lower extremity in addition drainage from his left foot. Differential includes cellulitis, DVT, osteomyelitis amongst others. Patient will be evaluated with EKG, chest x-ray, left foot x-ray, noninvasive vascular study of the right leg to rule out DVT, blood cultures, lactate and other labs. The patient will be treated with Percocet and IV hydration. A culture will be performed of the drainage from the left foot. EKG is normal sinus rhythm with nonspecific ST-T wave changes and Q waves in 2 3 and aVF. Gas formation L foot localized. WBC normal. Elevated ESR and C reactive protein. Renal function = similar to past with chronic renal insufficiency. Glucose elevated. 3 antibiotics begun for L foot and R lower leg. Pain is improved with treatment. Discussed with Dr. Haas and Dr. Rush. US neg for DVT. Evaluated by Dr. Rush here. Admit medical floor Dr. Haas. Laboratory Tests Test 06/01/19 15:25 06/01/19 16:55 White Blood Count 5.3 K/UL (4.8-10.8) Red Blood Count 4.38 M/UL (4.70-6.10) L Hemoglobin 12.3 G/DL (14.2-18.0) L Hematocrit 37.0 % (42.0-52.0) L Mean Corpuscular Volume 84 FL (80-99) Mean Corpuscular Hemoglobin 28.1 PG (27.0-31.0) Mean Corpuscular Hemoglobin Concent 33.3 G/DL (32.0-36.0) Red Cell Distribution Width 11.8 % (11.6-14.8) Platelet Count 185 K/UL (150-450) Mean Platelet Volume 5.8 FL (6.5-10.1) L Neutrophils (%) (Auto) 79.7 % (45.0-75.0) H Lymphocytes (%) (Auto) 10.9 % (20.0-45.0) L Monocytes (%) (Auto) 6.2 % (1.0-10.0) Eosinophils (%) (Auto) 2.5 % (0.0-3.0) Basophils (%) (Auto) 0.7 % (0.0-2.0) Erythrocyte Sedimentation Rate 90 MM/HR (0-15) H Prothrombin Time 10.3 SEC (9.30-11.50) Prothrombin Time INR 1.0 (0.9-1.1) PTT 28 SEC (23-33) Sodium Level 134 MMOL/L (136-145) L Potassium Level 4.6 MMOL/L (3.5-5.1) Chloride Level 100 MMOL/L (98-107) Carbon Dioxide Level 26 MMOL/L (21-32) Anion Gap 8 mmol/L (5-15) Blood Urea Nitrogen 29 mg/dL (7-18) H Creatinine 1.9 MG/DL (0.55-1.30) H Estimate Glomerular Filtration Rate 37.7 mL/min (>60) Glucose Level 276 MG/DL (74-106) H Lactic Acid Level 1.70 mmol/L (0.4-2.0) Calcium Level 8.8 MG/DL (8.5-10.1) Magnesium Level 1.9 MG/DL (1.8-2.4) Total Bilirubin 0.4 MG/DL (0.2-1.0) Aspartate Amino Transferase (AST) 22 U/L (15-37) Alanine Aminotransferase (ALT) 27 U/L (12-78) Alkaline Phosphatase 126 U/L (46-116) H Total Creatine Kinase 116 U/L (26-308) Troponin I 0.009 ng/mL (0.000-0.056) C-Reactive Protein, Quantitative 10.5 mg/dL (0.00-0.90) H Pro-B-Type Natriuretic Peptide 511 pg/mL (0-125) H Total Protein 6.7 G/DL (6.4-8.2) Albumin 3.0 G/DL (3.4-5.0) L Globulin 3.7 g/dL Albumin/Globulin Ratio 0.8 (1.0-2.7) L Lipase 148 U/L (73-393) Urine Color Yellow Urine Appearance Clear Urine pH 5 (4.5-8.0) Urine Specific [place] 1.015 (1.005-1.035) Urine Protein 3+ (NEGATIVE) H Urine Glucose (UA) 2+ (NEGATIVE) H Urine Ketones Negative (NEGATIVE) Urine Blood Negative (NEGATIVE) Urine Nitrite Negative (NEGATIVE) Urine Bilirubin Negative (NEGATIVE) Urine Urobilinogen Normal MG/DL (0.0-1.0) Urine Leukocyte Esterase Negative (NEGATIVE) Urine RBC 0-2 /HPF (0 - 0) H Urine WBC 0-2 /HPF (0 - 0) Urine Squamous Epithelial Cells Few /LPF (NONE/OCC) Urine Bacteria Few /HPF (NONE) EKG Diagnostic Results Rate: normal Rhythm: NSR ST Segments: no acute changes - Old inferior IN Rhythm Strip Diag. Results EP Interpretation: yes Rhythm: NSR, no PVC's, no ectopy Chest X-Ray Diagnostic Results Chest X-Ray Diagnostic Results : Chest X-Ray Ordered: Yes # of Views/Limited/Complete: 1 View Indication: Other EP Interpretation: Yes Interpretation: no consolidation, no effusion, no pneumothorax Impression: No acute disease Electronically Signed by: Electronically signed by Omar Hodge MD Other X-Ray Diagnostic Results Other X-Ray Diagnostic Results : X-Ray ordered: Left foot # of Views/Limited Vs Complete: 3 View Indication: Other EP Interpretation: Yes Interpretation: no fractures, other - Postsurgical changes and area of gas formation Impression: Other Electronically Signed by: Electronically signed by Omar Hodge MD CT/MRI/US Diagnostic Results CT/MRI/US Diagnostic Results : Imaging Test Ordered: doppler Impression no DVT Right Last Vital Signs Date Time Temp Pulse Resp B/P (MAP) Pulse Ox O2 Delivery O2 Flow Rate FiO2 06/01/19 23:14 Room Air 06/01/19 20:00 98.1 73 18 118/70 95 Status: improved Disposition: ADMITTED INPATIENT Condition: Serious Omar Hodge MD Jun 01, 2019 15:52
[2019-06-01 15:53] LABS: BASOPHILS % (AUTO) 0.7 % (0.0-2.0); EOSINOPHILS % (AUTO) 2.5 % (0.0-3.0); HEMOGLOBIN 12.3 G/DL (14.2-18.0); LYMPHOCYTES % (AUTO) 10.9 % (20.0-45.0); MEAN CORPUSCULAR VOLUME 84 FL (80-99); MONOCYTES % (AUTO) 6.2 % (1.0-10.0); NEUTROPHILS % (AUTO) 79.7 % (45.0-75.0); PLATELET COUNT 185 K/UL (150-450); RED BLOOD COUNT 4.38 M/UL (4.70-6.10); RED CELL DISTRIBUTION WIDTH 11.8 % (11.6-14.8); WHITE BLOOD COUNT 5.3 K/UL (4.8-10.8)
[2019-06-01 16:29] LABS: ANION GAP 8 mmol/L (5-15); BLOOD UREA NITROGEN 29 mg/dL (7-18); CALCIUM 8.8 MG/DL (8.5-10.1); CARBON DIOXIDE 26 MMOL/L (21-32); CHLORIDE 100 MMOL/L (98-107); CREATININE 1.9 MG/DL (0.55-1.30); POTASSIUM 4.6 MMOL/L (3.5-5.1); SODIUM 134 MMOL/L (136-145)
[2019-06-01] MEDS ORDERED: Piperacillin/Tazobactam 3.375 GM in NS 110 ML IVPB ONE (16:30)
[2019-06-01] MEDS ORDERED: Vancomycin 1.5 GM in NS 275 ML IVPB ONE (16:30)
[2019-06-01 16:40] LABS: ALANINE AMINOTRANSFERASE 27 U/L (12-78); ALBUMIN/GLOBULIN RATIO 0.8 (1.0-2.7); ALKALINE PHOSPHATASE 126 U/L (46-116); ASPARTATE AMINO TRANSFERASE 22 U/L (15-37); BILIRUBIN,TOTAL 0.4 MG/DL (0.2-1.0); CREATINE KINASE 116 U/L (26-308)
[2019-06-01 17:31] LABS: APPEARANCE,URINE CLEAR; BILIRUBIN, URINE NEGATIVE (NEGATIVE); GLUCOSE, URINE (UA) 2+ (NEGATIVE); KETONES,URINE NEGATIVE (NEGATIVE); LEUKOCYTE ESTERASE ,URINE NEGATIVE (NEGATIVE); NITRITE,URINE NEGATIVE (NEGATIVE); PH,URINE 5 (4.5-8.0); PROTEIN,URINE 3+ (NEGATIVE); UROBILINOGEN,URINE NORMAL MG/DL (0.0-1.0)
[2019-06-01 17:34] LABS: COLOR,URINE YELLOW
--- NOTE | 2019-06-01 17:41 | NUR ---
ED Nurse Note: Patient sleeping calmly in bed, at no distress at this time
--- NOTE | 2019-06-01 17:56 | Diagnostic Imaging Report ---
US VENOUS RIGHT LOWER EXTREMITY: INDICATION: Right leg swelling. TECHNIQUE: Real-time imaging of the right common femoral, superficial femoral and popliteal veins is performed utilizing intermittent compression. The study is supplemented with color flow imaging and duplex Doppler during spontaneous flow and calf augmentation. COMPARISON: none FINDINGS: Normal compressibility is demonstrated from the common femoral vein to the popliteal vein. There is normal response to augmentation. Normal spontaneous phasic flow is noted. IMPRESSION: No evidence of deep venous thrombosis in the right lower extremity.
[2019-06-01] MEDS ORDERED: Piperacillin/Tazobactam 3.375 GM in NS 110 ML IVPB SCH (18:00)
[2019-06-01 19:35] VITALS: BP 123/72
--- NOTE | 2019-06-01 19:40 | NUR ---
ED Nurse Note: Patient sleeping calmly in bed. received orders to send patient up at 2000
--- NOTE | 2019-06-01 20:23 | Consultation ---
History of Present Illness General Date patient seen: Jun 01, 2019 Reason for Hospitalization: Edema Present Illness HPI This is a very pleasant 48-year-old male [facility] resident with multiple medical comorbidities who presented with lower extremity edema and possible cellulitis. Patient states that he has had worsening edema in his right foot and leg over the past few days. Patient also states that he has a peripheral neuropathy but noted some pain in his left foot recently. In the emergency department identified to have a ulcer on the plantar aspect of his left midfoot and plain films demonstrated gas bubble. Surgery was called to evaluate. Patient seen, patient Stevan, chart reviewed. Patient states that he had a distal right great toe amputation for infection 3 years ago and is healed well since. Has had on and off edema of his right lower extremity. Furthermore patient had a left lower extremity ray amputation 4 years ago and states that he has Charcot Rocio deformity of the foot. Patient states on his left lower extremity he wears a boot to ambulate. Feels it is not ambulating too much recently and causing potential edema and injury. In emergency department had a normal white count but elevated ESR and CRP. Currently denies any pain. Allergies: Coded Allergies: METFORMIN (Verified Allergy, Unknown, 10/09/18) Vomiting Medication History Scheduled Amoxicillin/Potassium Clav 875-125* (Augmentin 875-125 Tablet*), 1 TAB ORAL TWICE A DAY, (Reported) Ascorbic Acid* (Vitamin C*), 250 MG ORAL DAILY, (Reported) Atorvastatin Calcium* (Lipitor*), 40 MG ORAL BEDTIME, (Reported) Docusate Sodium* (Docusate Sodium*), 100 MG ORAL TWICE A DAY, (Reported) Escitalopram Oxalate* (Lexapro*), 10 MG ORAL DAILY, (Reported) Gabapentin* (Neurontin*), 300 MG ORAL THREE TIMES A DAY, (Reported) Insulin Detemir (Levemir Flexpen), 25 UNITS SUBQ BID Insulin Lispro (Humalog), 15 UNITS SUBQ TIAC, (Reported) Lisinopril (Lisinopril*), 20 MG ORAL DAILY, (Reported) Multivitamin With Minerals (Multivitamins With Minerals*), 1 TAB ORAL BID, ( Reported) Mupirocin* (Mupirocin*), 1 APPLIC TOPIC THREE TIMES A DAY, (Reported) Omeprazole (Omeprazole), 40 MG ORAL DAILY, (Reported) Quetiapine Fumarate* (Seroquel*), 100 MG ORAL TWICE A DAY, (Reported) Ranitidine HCl (Ranitidine HCl), 150 MG PO BID, (Reported) Scheduled PRN Acetaminophen* (Acetaminophen 325MG Tablet*), 650 MG ORAL Q4H PRN for Mild Pain (Pain Scale 1-3), (Reported) Bisacodyl (Bisacodyl), 10 MG RC DAILY PRN for Constipation, (Reported) Dextromethorphan Hbr/B-Skyler (Cepacol Sorethroat-Cough [place]*), 1 LOZENGE ORAL Q6H PRN for For Cough, (Reported) Guaifenesin/Dextromethorphan (Guaifenesin Dm Syrup), 10 ML PO Q6HR PRN for For Cough, (Reported) Ibuprofen* (Motrin*), 600 MG ORAL Q6H PRN for For Pain, (Reported) Loperamide Hcl (Loperamide), 2 MG PO Q4HR PRN for Diarrhea, (Reported) Magnesium Hydroxide* (Milk Of Magnesia*), 30 ML ORAL DAILY PRN for Constipation, (Reported) Na Phos,M-B/Na Phos,Di-Ba* (Fleet Enema*), 133 ML RECTAL DAILY PRN for Constipation, (Reported) Neomycin/Polymyxin/Dexameth (Maxitrol Eye Drops), 1 DROP LEFT EYE BID PRN for Dry Eyes, (Reported) Ondansetron* (Zofran*), 4 MG ORAL Q8HR PRN for Nausea & Vomiting, (Reported) Tramadol Hcl* (Ultram*), 50 MG ORAL Q8HR PRN for Severe Pain (Pain Scale 7-10), (Reported) Patient History History Provided By: Patient, Medical Record, PMD Healthcare decision maker Resuscitation status Advanced Directive on File Past Medical/Surgical History Past Medical/Surgical History: (1) Pansinusitis (2) Diabetic nephropathy (3) Renal failure (ARF), acute on chronic (4) Hyperkalemia (5) Anxiety disorder (6) MDD (major depressive disorder), recurrent episode, moderate (7) Gambling disorder, episodic, moderate (8) Cellulitis (9) Renal insufficiency (10) 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 Review of Systems Review of Symptoms General ROS: no weight loss or fever Psychological ROS: no depression or mood changes, no memory loss Ophthalmic ROS: no visual changes or eye irritation ENT ROS: no nasal congestion, hearing loss, dizziness Allergy and Immunology ROS: no allergic symptoms or urticaria Hematological and Lymphatic ROS: no swollen glands, unusual bleeding or bruising Endocrine ROS: no polyuria, polydipsia, weight changes, temperature intolerance Respiratory ROS: no cough, shortness of breath, or wheezing Cardiovascular ROS: no chest pain or dyspnea on exertion Gastrointestinal ROS: denies abdominal pain, no bright red blood in stool. Musculoskeletal ROS: no myalgias or arthralgias Neurological ROS: no TIA or stroke symptoms Dermatological ROS: no new or changing skin lesions, rashes or pruritis Physical Exam Physical Exam General appearance: alert, cooperative, no distress, appears stated age Head: Normocephalic, without obvious abnormality, atraumatic Eyes: conjunctivae/corneas clear. PERRL, EOM's intact. Fundi benign Throat: Lips, mucosa, and tongue normal. Teeth and gums normal Neck: supple, symmetrical, trachea midline, no adenopathy, thyroid: not enlarged, symmetric, no tenderness/mass/nodules, no carotid bruit and no JVD Lungs: clear to auscultation bilaterally Heart: regular rate and rhythm, S1, S2 normal, no murmur, click, rub or gallop Abdomen: soft, non-tender. Bowel sounds normal. No masses, no organomegaly Extremities: extremities normal, atraumatic, edema ulcer on plantar aspect of left midfoot. Bilateral lower extremity edema. Pulses: 2+ and symmetric Skin: Skin color, texture, turgor normal. No rashes or lesions Neurologic: Grossly normal Last 24 Hour Vital Signs Date Time Temp Pulse Resp B/P (MAP) Pulse Ox O2 Delivery O2 Flow Rate FiO2 06/01/19 19:35 98.1 79 18 123/72 95 Room Air 06/01/19 16:15 98.1 06/01/19 15:00 82 18 Room Air 06/01/19 15:00 98.1 79 18 99/64 95 Room Air 06/01/19 14:57 98.1 82 18 99/64 (76) 93 Room Air Laboratory Tests Test 06/01/19 15:25 06/01/19 16:55 White Blood Count 5.3 K/UL (4.8-10.8) Red Blood Count 4.38 M/UL (4.70-6.10) L Hemoglobin 12.3 G/DL (14.2-18.0) L Hematocrit 37.0 % (42.0-52.0) L Mean Corpuscular Volume 84 FL (80-99) Mean Corpuscular Hemoglobin 28.1 PG (27.0-31.0) Mean Corpuscular Hemoglobin Concent 33.3 G/DL (32.0-36.0) Red Cell Distribution Width 11.8 % (11.6-14.8) Platelet Count 185 K/UL (150-450) Mean Platelet Volume 5.8 FL (6.5-10.1) L Neutrophils (%) (Auto) 79.7 % (45.0-75.0) H Lymphocytes (%) (Auto) 10.9 % (20.0-45.0) L Monocytes (%) (Auto) 6.2 % (1.0-10.0) Eosinophils (%) (Auto) 2.5 % (0.0-3.0) Basophils (%) (Auto) 0.7 % (0.0-2.0) Erythrocyte Sedimentation Rate 90 MM/HR (0-15) H Prothrombin Time 10.3 SEC (9.30-11.50) Prothromb Time International Ratio 1.0 (0.9-1.1) Activated Partial Thromboplast Time 28 SEC (23-33) Sodium Level 134 MMOL/L (136-145) L Potassium Level 4.6 MMOL/L (3.5-5.1) Chloride Level 100 MMOL/L (98-107) Carbon Dioxide Level 26 MMOL/L (21-32) Anion Gap 8 mmol/L (5-15) Blood Urea Nitrogen 29 mg/dL (7-18) H Creatinine 1.9 MG/DL (0.55-1.30) H Estimat Glomerular Filtration Rate 37.7 mL/min (>60) Glucose Level 276 MG/DL (74-106) H Lactic Acid Level 1.70 mmol/L (0.4-2.0) Calcium Level 8.8 MG/DL (8.5-10.1) Magnesium Level 1.9 MG/DL (1.8-2.4) Total Bilirubin 0.4 MG/DL (0.2-1.0) Aspartate Amino Transf (AST/SGOT) 22 U/L (15-37) Alanine Aminotransferase (ALT/SGPT) 27 U/L (12-78) Alkaline Phosphatase 126 U/L (46-116) H Total Creatine Kinase 116 U/L (26-308) Troponin I 0.009 ng/mL (0.000-0.056) C-Reactive Protein, Quantitative 10.5 mg/dL (0.00-0.90) H Pro-B-Type Natriuretic Peptide 511 pg/mL (0-125) H Total Protein 6.7 G/DL (6.4-8.2) Albumin 3.0 G/DL (3.4-5.0) L Globulin 3.7 g/dL Albumin/Globulin Ratio 0.8 (1.0-2.7) L Lipase 148 U/L (73-393) Urine Color Yellow Urine Appearance Clear Urine pH 5 (4.5-8.0) Urine Specific [place] 1.015 (1.005-1.035) Urine Protein 3+ (NEGATIVE) H Urine Glucose (UA) 2+ (NEGATIVE) H Urine Ketones Negative (NEGATIVE) Urine Blood Negative (NEGATIVE) Urine Nitrite Negative (NEGATIVE) Urine Bilirubin Negative (NEGATIVE) Urine Urobilinogen Normal MG/DL (0.0-1.0) Urine Leukocyte Esterase Negative (NEGATIVE) Urine RBC 0-2 /HPF (0 - 0) H Urine WBC 0-2 /HPF (0 - 0) Urine Squamous Epithelial Cells Few /LPF (NONE/OCC) Urine Bacteria Few /HPF (NONE) Height (Feet): 5 Height (Inches): 8.00 Weight (Pounds): 216 Medications Current Medications Medications (Trade) Dose Ordered Sig/Aylin Route PRN Reason Start Time Stop Time Status Last Admin Dose Admin Piperacillin Sod/ Tazobactam Sod 3.375 gm/Sodium Chloride 110 ml @ 220 mls/hr Q6H IVPB 06/01/19 22:30 06/08/19 22:29 Sodium Chloride 1,000 ml @ 300 mls/hr Q3H20M IV 06/01/19 15:15 07/01/19 15:14 06/01/19 15:47 Vancomycin HCl (Vanco rx to dose) 1 ea DAILY PRN MISC Per rx protocol 06/01/19 18:00 07/01/19 17:59 Assessment/Plan Problem List: (1) Cellulitis Assessment & Plan: Patient with presumed cellulitis of the lower extremity. Right lower extremity with edema and potential cellulitis patient has had history of this in the past. No abscess noted. No acute surgical intervention necessary. IV antibiotics as per infectious disease. Keep lower extremities elevated while in bed with pillows. 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 Had amputation of the lateral ray 4 years ago and states unsure when he developed ulcer. States that he receives wound care at his nursing facility. Was unsure if there is an opening. On examination patient has an open ulcer with it is down to the fat layer and unsure if any deeper. There is a foul odor but no significant active drainage. No abscess identified. Plain films noted. Minimal surrounding cellulitis. Edema of the foot. no acute surgical intervention IV ABX as per ID MRI left foot ordered Will follow with recs thank you ICD Codes: E11.621 - Type 2 diabetes mellitus with foot ulcer; L97.502 - Non- pressure chronic ulcer of other part of unspecified foot with fat layer exposed SNOMED: 153873899, 98041245 Qualifiers: Qualified Codes: E10.621 - Type 1 diabetes mellitus with foot ulcer; L97.422 - Non-pressure chronic ulcer of left heel and midfoot with fat layer exposed (3) Renal insufficiency ICD Codes: N28.9 - Disorder of kidney and ureter, unspecified SNOMED: 336318530, 512445599 (4) Hyperkalemia ICD Codes: E87.5 - Hyperkalemia SNOMED: 88141746 (5) Anxiety disorder ICD Codes: F41.9 - Anxiety disorder, unspecified SNOMED: 707423238 (6) Diabetic nephropathy ICD Codes: E11.21 - Type 2 diabetes mellitus with diabetic nephropathy SNOMED: 18483575, 695498893 (7) Pansinusitis ICD Codes: J32.4 - Chronic pansinusitis SNOMED: 932014037 (8) Renal failure (ARF), acute on chronic ICD Codes: N17.9 - Acute kidney failure, unspecified; N18.9 - Chronic kidney disease, unspecified SNOMED: 395993758 (9) MDD (major depressive disorder), recurrent episode, moderate ICD Codes: F33.1 - Major depressive disorder, recurrent, moderate SNOMED: 84003238, 981665582 (10) Gambling disorder, episodic, moderate ICD Codes: F63.0 - Pathological gambling SNOMED: 77560745 Melquiades Rush Jun 01, 2019 20:23
--- NOTE | 2019-06-01 20:27 | NUR ---
TRANSFER TO FLOOR: Patient transferred to Med-Surg as ordered, per . Report given to PACO Nelson
--- NOTE | 2019-06-01 21:30 | NUR ---
NURSE NOTES: Patient transferred to room 411-2. Patient is awake, alert and verbally responsive. Able to make needs known. Respiration is even and unlabored. Abdomen is soft and non distended. Skin is warm an dry to touch. Noted with left foot swelling with dressing, picture taken. Right calf swelling. No complaint of pain or discomfort noted at tis time. All belongings with the patient. With cellphone and street light repairer helper and schreiber at bedside. Bed in low and locked position. Call light is at bedside. Will continue plan of care.
--- NOTE | 2019-06-01 21:53 | Infectious Diseases Prog Note ---
Assessment/Plan Problems: (1) Foot ulcer due to secondary DM Assessment & Plan: suspect chronic need to rule out underlying chronic osteomyelitis , MRI of the foot is pending. may need bone or tissue biopsy for culture and pathology to direct antibiotics treatment and plan of care . start vancomycin and zosyn empirically , pending further work up and cultures . laundry housekeeper is following (2) Cellulitis of right foot Assessment & Plan: already on vancomycin and zosyn . keep leg elevated all the time while in bed. venous Doppler to rule out DVT (3) Poorly controlled diabetes mellitus Assessment & Plan: recommend tight glycemic control to keep blood glucose between 100-140 (4) Renal failure (ARF), acute on chronic Assessment & Plan: suspect dehydration, continue renally dosed medications and hydration as needed, close monitor of renal function and UOP Subjective Allergies: Coded Allergies: METFORMIN (Verified Allergy, Unknown, 10/09/18) Vomiting Objective Vital Signs Last 24 Hour Vital Signs Date Time Temp Pulse Resp B/P (MAP) Pulse Ox O2 Delivery O2 Flow Rate FiO2 06/01/19 20:00 98.1 73 18 118/70 95 Room Air 06/01/19 19:35 98.1 79 18 123/72 95 Room Air 06/01/19 16:15 98.1 06/01/19 15:00 82 18 Room Air 06/01/19 15:00 98.1 79 18 99/64 95 Room Air 06/01/19 14:57 98.1 82 18 99/64 (76) 93 Room Air Height (Feet): 5 Height (Inches): 8.00 Weight (Pounds): 216 Laboratory Tests Test 06/01/19 15:25 06/01/19 16:55 White Blood Count 5.3 K/UL (4.8-10.8) Red Blood Count 4.38 M/UL (4.70-6.10) L Hemoglobin 12.3 G/DL (14.2-18.0) L Hematocrit 37.0 % (42.0-52.0) L Mean Corpuscular Volume 84 FL (80-99) Mean Corpuscular Hemoglobin 28.1 PG (27.0-31.0) Mean Corpuscular Hemoglobin Concent 33.3 G/DL (32.0-36.0) Red Cell Distribution Width 11.8 % (11.6-14.8) Platelet Count 185 K/UL (150-450) Mean Platelet Volume 5.8 FL (6.5-10.1) L Neutrophils (%) (Auto) 79.7 % (45.0-75.0) H Lymphocytes (%) (Auto) 10.9 % (20.0-45.0) L Monocytes (%) (Auto) 6.2 % (1.0-10.0) Eosinophils (%) (Auto) 2.5 % (0.0-3.0) Basophils (%) (Auto) 0.7 % (0.0-2.0) Erythrocyte Sedimentation Rate 90 MM/HR (0-15) H Prothrombin Time 10.3 SEC (9.30-11.50) Prothromb Time International Ratio 1.0 (0.9-1.1) Activated Partial Thromboplast Time 28 SEC (23-33) Sodium Level 134 MMOL/L (136-145) L Potassium Level 4.6 MMOL/L (3.5-5.1) Chloride Level 100 MMOL/L (98-107) Carbon Dioxide Level 26 MMOL/L (21-32) Anion Gap 8 mmol/L (5-15) Blood Urea Nitrogen 29 mg/dL (7-18) H Creatinine 1.9 MG/DL (0.55-1.30) H Estimat Glomerular Filtration Rate 37.7 mL/min (>60) Glucose Level 276 MG/DL (74-106) H Lactic Acid Level 1.70 mmol/L (0.4-2.0) Calcium Level 8.8 MG/DL (8.5-10.1) Magnesium Level 1.9 MG/DL (1.8-2.4) Total Bilirubin 0.4 MG/DL (0.2-1.0) Aspartate Amino Transf (AST/SGOT) 22 U/L (15-37) Alanine Aminotransferase (ALT/SGPT) 27 U/L (12-78) Alkaline Phosphatase 126 U/L (46-116) H Total Creatine Kinase 116 U/L (26-308) Troponin I 0.009 ng/mL (0.000-0.056) C-Reactive Protein, Quantitative 10.5 mg/dL (0.00-0.90) H Pro-B-Type Natriuretic Peptide 511 pg/mL (0-125) H Total Protein 6.7 G/DL (6.4-8.2) Albumin 3.0 G/DL (3.4-5.0) L Globulin 3.7 g/dL Albumin/Globulin Ratio 0.8 (1.0-2.7) L Lipase 148 U/L (73-393) Urine Color Yellow Urine Appearance Clear Urine pH 5 (4.5-8.0) Urine Specific [place] 1.015 (1.005-1.035) Urine Protein 3+ (NEGATIVE) H Urine Glucose (UA) 2+ (NEGATIVE) H Urine Ketones Negative (NEGATIVE) Urine Blood Negative (NEGATIVE) Urine Nitrite Negative (NEGATIVE) Urine Bilirubin Negative (NEGATIVE) Urine Urobilinogen Normal MG/DL (0.0-1.0) Urine Leukocyte Esterase Negative (NEGATIVE) Urine RBC 0-2 /HPF (0 - 0) H Urine WBC 0-2 /HPF (0 - 0) Urine Squamous Epithelial Cells Few /LPF (NONE/OCC) Urine Bacteria Few /HPF (NONE) Current Medications Medications (Trade) Dose Ordered Sig/Aylin Route PRN Reason Start Time Stop Time Status Last Admin Dose Admin Piperacillin Sod/ Tazobactam Sod 3.375 gm/Sodium Chloride 110 ml @ 220 mls/hr Q6H IVPB 06/01/19 22:30 06/08/19 22:29 Sodium Chloride 1,000 ml @ 300 mls/hr Q3H20M IV 06/01/19 15:15 07/01/19 15:14 06/01/19 15:47 Vancomycin HCl (Vanco rx to dose) 1 ea DAILY PRN MISC Per rx protocol 06/01/19 18:00 07/01/19 17:59 Kwasi Martinez M.D. Jun 01, 2019 21:53
[2019-06-01 22:00] VITALS: BP 130/69
[2019-06-01] MEDS ORDERED: Tylenol #3 tab (300mg/30mg) ORAL PRN (22:30)
[2019-06-01] MEDS ORDERED: Loperamide 2mg cap ORAL PRN (22:30)
[2019-06-01] MEDS ORDERED: oxyCODONE HCL/Acetaminophen 5/325mg ORAL PRN (22:30)
[2019-06-01] MEDS ORDERED: Milk of Magnesia 30ml Ud ORAL PRN (22:30)
[2019-06-01] MEDS ORDERED: Fleet's Enema 133ml RECTAL PRN (22:30)
[2019-06-01] MEDS: Piperacillin/Tazobactam 3.375 GM in NS 110 ML IVPB SCH (23:37)
--- NOTE | 2019-06-02 00:30 | NUR ---
NURSE NOTES: Patient refused midnight vital signs, refused. INformed the risks and benefits, still refused. Charge nurse made aware.
[2019-06-02] MEDS: Piperacillin/Tazobactam 3.375 GM in NS 110 ML IVPB SCH (04:35)
--- NOTE | 2019-06-02 05:00 | NUR ---
NURSE NOTES: Patient in bed, awake. Patient refused vital signs.
--- NOTE | 2019-06-02 06:10 | NUR ---
NURSE NOTES: Ida from lab informed patient that she will need to draw blood, attempted x1. After failed attempt, patient refused. Noted saying "you guys can try tomorrow again." Charge nurse made aware. Will ask again.
[2019-06-02] MEDS: NovoLOG Insulin Flexpen SUBQ SCH ×7 (06:28→21:18)
--- NOTE | 2019-06-02 07:30 | NUR ---
NURSE NOTES: Received pt from PACO ACHARYA. Pt is alert and orient x4. pt is in RA, No SOB or acute respiratory distress noted. pt has intact iv access LFA 20G SL. Pt is eating breakfast independently. all needs attended, bed is locked and is in the lowest position. call light within easy reach. will continue to monitor. Addendum: 06/02/19 at 0809 by Chela Boykin RN ERROR: WRONG PT
--- NOTE | 2019-06-02 07:30 | NUR ---
NURSE NOTES: Received pt from PACO MEI. Pt is alert and orient x4. pt is in RA, No SOB or acute respiratory distress noted. pt has intact iv access LFA 20G SL. all needs attended, bed is locked and is in the lowest position. call light within easy reach. will continue to monitor.
--- NOTE | 2019-06-02 07:48 | NUR ---
HAND-OFF: Report given to PACO [place].
[2019-06-02 08:00] VITALS: BP 139/79
[2019-06-02 08:24] LABS: BASOPHILS % (AUTO) 0.7 % (0.0-2.0); EOSINOPHILS % (AUTO) 2.9 % (0.0-3.0); HEMATOCRIT 39.6 % (42.0-52.0); HEMOGLOBIN 12.8 G/DL (14.2-18.0); LYMPHOCYTES % (AUTO) 17.3 % (20.0-45.0); MEAN CORPUSCULAR VOLUME 87 FL (80-99); MONOCYTES % (AUTO) 7.6 % (1.0-10.0); NEUTROPHILS % (AUTO) 71.5 % (45.0-75.0); PLATELET COUNT 198 K/UL (150-450); RED BLOOD COUNT 4.55 M/UL (4.70-6.10); RED CELL DISTRIBUTION WIDTH 12.4 % (11.6-14.8); WHITE BLOOD COUNT 4.2 K/UL (4.8-10.8)
[2019-06-02 08:34] LABS: ALANINE AMINOTRANSFERASE 31 U/L (12-78); ALBUMIN 2.8 G/DL (3.4-5.0); ALBUMIN/GLOBULIN RATIO 0.7 (1.0-2.7); ALKALINE PHOSPHATASE 133 U/L (46-116); ANION GAP 5 mmol/L (5-15); ASPARTATE AMINO TRANSFERASE 27 U/L (15-37); BILIRUBIN,TOTAL 0.5 MG/DL (0.2-1.0); BLOOD UREA NITROGEN 23 mg/dL (7-18); CALCIUM 8.6 MG/DL (8.5-10.1); CARBON DIOXIDE 28 MMOL/L (21-32); CHLORIDE 101 MMOL/L (98-107); CREATININE 1.7 MG/DL (0.55-1.30); POTASSIUM 4.3 MMOL/L (3.5-5.1); SODIUM 133 MMOL/L (136-145)
[2019-06-02] MEDS: Multivitamin w/Minerals tab ORAL SCH ×2 (09:49→17:12)
[2019-06-02] MEDS: Lisinopril 20mg tab ORAL SCH (09:50)
[2019-06-02] MEDS: Docusate 100mg cap ORAL SCH ×2 (09:50→17:13)
[2019-06-02] MEDS: Heparin 5000 units/ml inj SUBQ SCH ×2 (09:50→21:17)
[2019-06-02] MEDS: Levemir Flexpen SUBQ SCH ×2 (09:53→17:13)
[2019-06-02] MEDS ORDERED: Vancomycin 1gm/D5W 275ml IVPB ONE ×2 (10:00)
--- NOTE | 2019-06-02 11:03 | General Progress Note ---
Assessment/Plan Assessment/Plan: SOURCE OF INFORMATION: The patient and EMR. HISTORY OF PRESENT ILLNESS: The patient is a 48-year-old male with a history of uncontrolled diabetes with Charcot foot, who [facility] secondary to worsening of pain and edema of the left foot. again, The patient reportedly is noncompliant with the diet. The patient reportedly had been particularly noncompliant with low sugar diet . had been reportedly overs-stayed out of pass visits in multiple occasions SOCIAL HISTORY: The patient denies history of smoking or alcohol abuse. PAST MEDICAL AND SURGICAL HISTORY: Including but not limited to uncontrolled diabetes, hypertension, noncompliance with the diet, bipolar disorder, Charcot foot, tarsometatarsal amputation, chronic kidney disease, and liver disease. FAMILY HISTORY: Reviewed and noncontributory. MEDICATIONS: Current hospital medications including, but not limited to, sliding scale insulin, BID PHYSICAL EXAMINATION: VITAL SIGNS: Blood pressure 135/80, temperature 98.2, pulse oximetry 98% on room air, and respiratory rate 18. HEAD AND NECK: multiple molars with plaques, Atraumatic and normocephalic. CHEST: Clear to auscultation. No wheezing. No crackles. HEART: S1 and S2. Regular rate and rhythm. No S3. No S4. ABDOMEN: Soft. No organomegaly. MUSCULOSKELETAL: Positive for Charcot's foot. Positive for stump of the prior tarsometatarsal resections. open wound in plantar aspect of left foot NEUROLOGIC: The patient is awake, alert, and oriented x3. PSYCHIATRIC: Mood and affect is elated. LABORATORY DATA: Dated reviewed A/P: 1- Cellulitis and open wound of left foot. likely underlying OM 2- DM- uncontrolled 3. Non compliance with medications 3- Charcot Foot 4- HTN 5- Psych 6. Chronic KD Plan: Start empirical antibiotic regiment, ID is consulted will resume NH medications Had detailed conversation with patient regarding Compliance issue MRI of the foot Notes from Surgeon and ID reviewed Subjective Allergies: Coded Allergies: METFORMIN (Verified Allergy, Unknown, 10/09/18) Vomiting Objective Last 24 Hour Vital Signs Date Time Temp Pulse Resp B/P (MAP) Pulse Ox O2 Delivery O2 Flow Rate FiO2 06/02/19 09:50 139/79 06/02/19 08:00 99.3 66 18 139/79 (99) 97 06/01/19 23:14 Room Air 06/01/19 22:00 98.6 88 20 130/69 (89) 98 06/01/19 20:00 98.1 73 18 118/70 95 Room Air 06/01/19 19:35 98.1 79 18 123/72 95 Room Air 06/01/19 16:15 98.1 06/01/19 15:00 82 18 Room Air 06/01/19 15:00 98.1 79 18 99/64 95 Room Air 06/01/19 14:57 98.1 82 18 99/64 (76) 93 Room Air Intake and Output 06/01/19 06/02/19 19:00 07:00 Intake Total 4000 ml Balance 4000 ml Intake IV Total 4000 ml # Voids 10 Laboratory Tests 06/01/19 15:25: White Blood Count 5.3, Red Blood Count 4.38L, Hemoglobin 12.3L, Hematocrit 37.0L , Mean Corpuscular Volume 84, Mean Corpuscular Hemoglobin 28.1, Mean Corpuscular Hemoglobin Concent 33.3, Red Cell Distribution Width 11.8, Platelet Count 185, Mean Platelet Volume 5.8L, Neutrophils (%) (Auto) 79.7H, Lymphocytes (%) (Auto) 10.9L, Monocytes (%) (Auto) 6.2, Eosinophils (%) (Auto) 2.5, Basophils (%) (Auto) 0.7, Erythrocyte Sedimentation Rate 90H, Prothrombin Time 10.3, Prothromb Time International Ratio 1.0, Activated Partial Thromboplast Time 28, Sodium Level 134L, Potassium Level 4.6, Chloride Level 100, Carbon Dioxide Level 26, Anion Gap 8, Blood Urea Nitrogen 29H, Creatinine 1.9H, Estimat Glomerular Filtration Rate 37.7, Glucose Level 276H, Lactic Acid Level 1.70, Calcium Level 8.8, Magnesium Level 1.9, Total Bilirubin 0.4, Aspartate Amino Transf (AST/SGOT) 22, Alanine Aminotransferase (ALT/SGPT) 27, Alkaline Phosphatase 126H, Total Creatine Kinase 116, Troponin I 0.009, C-Reactive Protein, Quantitative 10.5H, Pro-B-Type Natriuretic Peptide 511H, Total Protein 6.7, Albumin 3.0L, Globulin 3.7, Albumin/Globulin Ratio 0.8L, Lipase 148 06/01/19 16:55: Urine Color Yellow, Urine Appearance Clear, Urine pH 5, Urine Specific [place] 1.015, Urine Protein 3+H, Urine Glucose (UA) 2+H, Urine Ketones Negative, Urine Blood Negative, Urine Nitrite Negative, Urine Bilirubin Negative, Urine Urobilinogen Normal, Urine Leukocyte Esterase Negative, Urine RBC 0-2H, Urine WBC 0-2, Urine Squamous Epithelial Cells Few, Urine Bacteria Few 06/02/19 07:50: White Blood Count 4.2L, Red Blood Count 4.55L, Hemoglobin 12.8L, Hematocrit 39.6L, Mean Corpuscular Volume 87, Mean Corpuscular Hemoglobin 28.2, Mean Corpuscular Hemoglobin Concent 32.4, Red Cell Distribution Width 12.4, Platelet Count 198, Mean Platelet Volume 5.7L, Neutrophils (%) (Auto) 71.5, Lymphocytes ( %) (Auto) 17.3L, Monocytes (%) (Auto) 7.6, Eosinophils (%) (Auto) 2.9, Basophils (%) (Auto) 0.7, Prothrombin Time 10.2, Prothromb Time International Ratio 1.0, Activated Partial Thromboplast Time 28, Sodium Level 133L, Potassium Level 4.3, Chloride Level 101, Carbon Dioxide Level 28, Anion Gap 5, Blood Urea Nitrogen 23H, Creatinine 1.7H, Estimat Glomerular Filtration Rate 42.9, Glucose Level 197H, Calcium Level 8.6, Total Bilirubin 0.5, Aspartate Amino Transf (AST/ SGOT) 27, Alanine Aminotransferase (ALT/SGPT) 31, Alkaline Phosphatase 133H, Total Protein 7.1, Albumin 2.8L, Globulin 4.3, Albumin/Globulin Ratio 0.7L, Random Vancomycin Level 13.8 Height (Feet): 5 Height (Inches): 8.00 Weight (Pounds): 216 Dexter Haas MD Jun 02, 2019 11:03
--- NOTE | 2019-06-02 11:04 | General Progress Note ---
Assessment/Plan Assessment/Plan: Full Dictation in progress ...... PHYSICAL EXAMINATION: HEAD AND NECK: multiple molars with plaques, Atraumatic and normocephalic. CHEST: Clear to auscultation. No wheezing. No crackles. HEART: S1 and S2. Regular rate and rhythm. No S3. No S4. ABDOMEN: Soft. No organomegaly. MUSCULOSKELETAL: Positive for Charcot's foot. Positive for stump of the prior tarsometatarsal resections. open wound in plantar aspect of left foot NEUROLOGIC: The patient is awake, alert, and oriented x3. PSYCHIATRIC: Mood and affect is elated. Meds: reviewed and reconcilled A/P: 1- Cellulitis and open wound of left foot. likely underlying OM 2- DM- uncontrolled 3. Non compliance with medications 3- Charcot Foot 4- HTN 5- Psych 6. Chronic KD Plan: Continue with empirical antibiotic regiment, ID is consulted MRI of the foot Notes from Surgeon and ID reviewed Subjective Allergies: Coded Allergies: METFORMIN (Verified Allergy, Unknown, 10/09/18) Vomiting Objective Last 24 Hour Vital Signs Date Time Temp Pulse Resp B/P (MAP) Pulse Ox O2 Delivery O2 Flow Rate FiO2 06/02/19 09:50 139/79 06/02/19 08:00 99.3 66 18 139/79 (99) 97 06/01/19 23:14 Room Air 06/01/19 22:00 98.6 88 20 130/69 (89) 98 06/01/19 20:00 98.1 73 18 118/70 95 Room Air 06/01/19 19:35 98.1 79 18 123/72 95 Room Air 06/01/19 16:15 98.1 06/01/19 15:00 82 18 Room Air 06/01/19 15:00 98.1 79 18 99/64 95 Room Air 06/01/19 14:57 98.1 82 18 99/64 (76) 93 Room Air Intake and Output 06/01/19 06/02/19 19:00 07:00 Intake Total 4000 ml Balance 4000 ml Intake IV Total 4000 ml # Voids 10 Laboratory Tests 06/01/19 15:25: White Blood Count 5.3, Red Blood Count 4.38L, Hemoglobin 12.3L, Hematocrit 37.0L , Mean Corpuscular Volume 84, Mean Corpuscular Hemoglobin 28.1, Mean Corpuscular Hemoglobin Concent 33.3, Red Cell Distribution Width 11.8, Platelet Count 185, Mean Platelet Volume 5.8L, Neutrophils (%) (Auto) 79.7H, Lymphocytes (%) (Auto) 10.9L, Monocytes (%) (Auto) 6.2, Eosinophils (%) (Auto) 2.5, Basophils (%) (Auto) 0.7, Erythrocyte Sedimentation Rate 90H, Prothrombin Time 10.3, Prothromb Time International Ratio 1.0, Activated Partial Thromboplast Time 28, Sodium Level 134L, Potassium Level 4.6, Chloride Level 100, Carbon Dioxide Level 26, Anion Gap 8, Blood Urea Nitrogen 29H, Creatinine 1.9H, Estimat Glomerular Filtration Rate 37.7, Glucose Level 276H, Lactic Acid Level 1.70, Calcium Level 8.8, Magnesium Level 1.9, Total Bilirubin 0.4, Aspartate Amino Transf (AST/SGOT) 22, Alanine Aminotransferase (ALT/SGPT) 27, Alkaline Phosphatase 126H, Total Creatine Kinase 116, Troponin I 0.009, C-Reactive Protein, Quantitative 10.5H, Pro-B-Type Natriuretic Peptide 511H, Total Protein 6.7, Albumin 3.0L, Globulin 3.7, Albumin/Globulin Ratio 0.8L, Lipase 148 06/01/19 16:55: Urine Color Yellow, Urine Appearance Clear, Urine pH 5, Urine Specific [place] 1.015, Urine Protein 3+H, Urine Glucose (UA) 2+H, Urine Ketones Negative, Urine Blood Negative, Urine Nitrite Negative, Urine Bilirubin Negative, Urine Urobilinogen Normal, Urine Leukocyte Esterase Negative, Urine RBC 0-2H, Urine WBC 0-2, Urine Squamous Epithelial Cells Few, Urine Bacteria Few 06/02/19 07:50: White Blood Count 4.2L, Red Blood Count 4.55L, Hemoglobin 12.8L, Hematocrit 39.6L, Mean Corpuscular Volume 87, Mean Corpuscular Hemoglobin 28.2, Mean Corpuscular Hemoglobin Concent 32.4, Red Cell Distribution Width 12.4, Platelet Count 198, Mean Platelet Volume 5.7L, Neutrophils (%) (Auto) 71.5, Lymphocytes ( %) (Auto) 17.3L, Monocytes (%) (Auto) 7.6, Eosinophils (%) (Auto) 2.9, Basophils (%) (Auto) 0.7, Prothrombin Time 10.2, Prothromb Time International Ratio 1.0, Activated Partial Thromboplast Time 28, Sodium Level 133L, Potassium Level 4.3, Chloride Level 101, Carbon Dioxide Level 28, Anion Gap 5, Blood Urea Nitrogen 23H, Creatinine 1.7H, Estimat Glomerular Filtration Rate 42.9, Glucose Level 197H, Calcium Level 8.6, Total Bilirubin 0.5, Aspartate Amino Transf (AST/ SGOT) 27, Alanine Aminotransferase (ALT/SGPT) 31, Alkaline Phosphatase 133H, Total Protein 7.1, Albumin 2.8L, Globulin 4.3, Albumin/Globulin Ratio 0.7L, Random Vancomycin Level 13.8 Height (Feet): 5 Height (Inches): 8.00 Weight (Pounds): 216 Dexter Haas MD Jun 02, 2019 11:04
--- NOTE | 2019-06-02 11:21 | NUR ---
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 ULCER ON FOOT VS: BP 99/64, P 82, T 98.1, RR 18, SpO2 93 RBC 4.38, H&H 12.3/37.0, Na 134, BUN 29, CR 1.9, Glucose 276 IS:ZOSYN 110 ML METRONIDAZOLE 100ml IVPB VANCOMYCIN 275ml IVPB PERCOCET 5-325 1tab ADMITTED TO MED/SURG DCP: [facility]
--- NOTE | 2019-06-02 11:30 | NUR ---
NURSE NOTES:WOUND CARE NOTES:Pt presented on admission with full thickness ulceration plantar L foot. Base of wound necrotic with small tunneled wound centrally oozing small amt malodorous brown exudate .Periwound fluctuant without erythema. Pt was initially resistive to having wound evaluated. Pt argumentative with staff insisting he had an ulcer lateral R foot. R foot was evaluated and no wounds or erythema noted. Pt reassured no ulcers or erythema noted,only small dry callus .No area of erythema or fluctuance noted around callus. Pt insisted it was an ulcer and demanded Xray or MRI. Pt was informed would address his concerns with MD. (ID) visited and pt was again resistive to having L foot ulcer evaluated and insisted R foot be evaluated for ulcer. Pt noted to have Cam Walker Boot at bedside which he wears on L foot to amb[facility]. Attempts at educating pt on wound prevention and on importance of checking feet daily again unsuccessful as pt interruptive and argumentative with nursing staff. Tx.Plan: Cleanse Wound L foot with Dakin's 0.125% .Apply Dakin;s moist 2 x 2 Gauze over wound. Cover with Optifoam drsg Daily and prn. Cam Walker Boot when Ambulating. Off-load heels with pillow.
--- NOTE | 2019-06-02 11:32 | NUR ---
MRI LEFT FOOT AND ANKLE COMPLETED.
--- NOTE | 2019-06-02 11:42 | Diagnostic Imaging Report ---
Indication: Foot pain Technique: 3 views left foot Comparison: none Findings: There is evidence of a mid plantar ulcer. Patient is status post amputation of the fifth digit at the level the mid shaft metatarsal. There is hammertoe deformity of the second third and fourth digits. There is extensive degenerative change and degenerative remodeling at the fourth metatarsophalangeal joint. There is extensive abnormality of the midfoot, with evidence of chronic destructive changes of the navicular, cuboid, and cuneiforms as well as marked subluxation of the midfoot joints. No definite erosions, or unusual periosteal reaction, or other findings to suggest acute osteomyelitis. Impression: Evidence of plantar surface ulcer Extensive midfoot deformities, consistent with Charcot changes Postsurgical changes as described Degenerative changes, as described No definite plain radiographic evidence of osteomyelitis. Note, however, limited sensitivity of plain radiographs for such, particularly in the presence of Charcot changes. Consider MRI or bone scan for more sensitive characterization
--- NOTE | 2019-06-02 11:42 | Diagnostic Imaging Report ---
Indication: Chest pain Technique: One view of the chest Comparison: none Findings: Inspiration is suboptimal. The heart is borderline enlarged. Lungs and pleural spaces are grossly clear. Impression: No acute process
[2019-06-02 12:00] VITALS: BP 135/76
--- NOTE | 2019-06-02 13:16 | Infectious Diseases Prog Note ---
Assessment/Plan Problems: (1) Foot ulcer due to secondary DM Assessment & Plan: suspect chronic need to rule out underlying chronic osteomyelitis , MRI of the foot is pending. may need bone or tissue biopsy for culture and pathology to direct antibiotics treatment and plan of care . start vancomycin and zosyn empirically , pending further work up and cultures . landcare facilitator is following (2) Cellulitis of right foot Assessment & Plan: already on vancomycin and zosyn . keep leg elevated all the time while in bed. venous Doppler to rule out DVT (3) Poorly controlled diabetes mellitus Assessment & Plan: recommend tight glycemic control to keep blood glucose between 100-140 (4) Renal failure (ARF), acute on chronic Assessment & Plan: suspect dehydration, continue renally dosed medications and hydration as needed, close monitor of renal function and UOP Subjective Constitutional: Reports: no symptoms HEENT: Reports: no symptoms Respiratory: Reports: no symptoms Breasts: Reports: no symptoms Cardiovascular: Reports: no symptoms Gastrointestinal/Abdominal: Reports: no symptoms Genitourinary: Reports: no symptoms Neurologic: Reports: numbness, weakness Psychiatric: Reports: anxiety Skin: Reports: ulcer, other - redness Endocrine: Reports: no symptoms Hematologic: Reports: no symptoms Musculoskeletal: Reports: pain, swelling Allergies: Coded Allergies: METFORMIN (Verified Allergy, Unknown, 10/09/18) Vomiting Objective Vital Signs Last 24 Hour Vital Signs Date Time Temp Pulse Resp B/P (MAP) Pulse Ox O2 Delivery O2 Flow Rate FiO2 06/02/19 12:00 99.0 69 19 135/76 (95) 98 06/02/19 09:50 139/79 06/02/19 08:00 99.3 66 18 139/79 (99) 97 06/01/19 23:14 Room Air 06/01/19 22:00 98.6 88 20 130/69 (89) 98 06/01/19 20:00 98.1 73 18 118/70 95 Room Air 06/01/19 19:35 98.1 79 18 123/72 95 Room Air 06/01/19 16:15 98.1 06/01/19 15:00 82 18 Room Air 06/01/19 15:00 98.1 79 18 99/64 95 Room Air 06/01/19 14:57 98.1 82 18 99/64 (76) 93 Room Air Height (Feet): 5 Height (Inches): 8.00 Weight (Pounds): 216 General Appearance: WD/WN, no acute distress HEENT: normocephalic, atraumatic, anicteric, mucous membranes moist, PERRL, EOMI, pharynx normal, supple, no JVD Respiratory/Chest: chest wall non-tender, lungs clear, normal breath sounds, no respiratory distress, no accessory muscle use Cardiovascular: normal peripheral pulses, normal rate, regular rhythm, no gallop/murmur, no JVD Abdomen: normal bowel sounds, soft, non tender, no organomegaly, non distended , no mass, no scars Extremities: no cyanosis, no clubbing Skin: no rash, no lesions, ulcers - left foot draining fluids , with foul smell Neurologic/Psychiatric: alert, oriented x 3, responsive Lymphatic: no neck adenopathy, no groin adenopathy Musculoskeletal: normal muscle bulk, no effusion, other - charcot deformity of the feet Microbiology Date/Time Source Procedure Growth Status 06/01/19 13:30 Foot Left Gram Stain - Final Resulted 06/01/19 13:30 Foot Left Wound Culture Pending Resulted Laboratory Tests Test 06/01/19 15:25 06/01/19 16:55 06/02/19 07:50 White Blood Count 5.3 K/UL (4.8-10.8) 4.2 K/UL (4.8-10.8) L Red Blood Count 4.38 M/UL (4.70-6.10) L 4.55 M/UL (4.70-6.10) L Hemoglobin 12.3 G/DL (14.2-18.0) L 12.8 G/DL (14.2-18.0) L Hematocrit 37.0 % (42.0-52.0) L 39.6 % (42.0-52.0) L Mean Corpuscular Volume 84 FL (80-99) 87 FL (80-99) Mean Corpuscular Hemoglobin 28.1 PG (27.0-31.0) 28.2 PG (27.0-31.0) Mean Corpuscular Hemoglobin Concent 33.3 G/DL (32.0-36.0) 32.4 G/DL (32.0-36.0) Red Cell Distribution Width 11.8 % (11.6-14.8) 12.4 % (11.6-14.8) Platelet Count 185 K/UL (150-450) 198 K/UL (150-450) Mean Platelet Volume 5.8 FL (6.5-10.1) L 5.7 FL (6.5-10.1) L Neutrophils (%) (Auto) 79.7 % (45.0-75.0) H 71.5 % (45.0-75.0) Lymphocytes (%) (Auto) 10.9 % (20.0-45.0) L 17.3 % (20.0-45.0) L Monocytes (%) (Auto) 6.2 % (1.0-10.0) 7.6 % (1.0-10.0) Eosinophils (%) (Auto) 2.5 % (0.0-3.0) 2.9 % (0.0-3.0) Basophils (%) (Auto) 0.7 % (0.0-2.0) 0.7 % (0.0-2.0) Erythrocyte Sedimentation Rate 90 MM/HR (0-15) H Prothrombin Time 10.3 SEC (9.30-11.50) 10.2 SEC (9.30-11.50) Prothromb Time International Ratio 1.0 (0.9-1.1) 1.0 (0.9-1.1) Activated Partial Thromboplast Time 28 SEC (23-33) 28 SEC (23-33) Sodium Level 134 MMOL/L (136-145) L 133 MMOL/L (136-145) L Potassium Level 4.6 MMOL/L (3.5-5.1) 4.3 MMOL/L (3.5-5.1) Chloride Level 100 MMOL/L (98-107) 101 MMOL/L (98-107) Carbon Dioxide Level 26 MMOL/L (21-32) 28 MMOL/L (21-32) Anion Gap 8 mmol/L (5-15) 5 mmol/L (5-15) Blood Urea Nitrogen 29 mg/dL (7-18) H 23 mg/dL (7-18) H Creatinine 1.9 MG/DL (0.55-1.30) H 1.7 MG/DL (0.55-1.30) H Estimat Glomerular Filtration Rate 37.7 mL/min (>60) 42.9 mL/min (>60) Glucose Level 276 MG/DL (74-106) H 197 MG/DL (74-106) H Lactic Acid Level 1.70 mmol/L (0.4-2.0) Calcium Level 8.8 MG/DL (8.5-10.1) 8.6 MG/DL (8.5-10.1) Magnesium Level 1.9 MG/DL (1.8-2.4) Total Bilirubin 0.4 MG/DL (0.2-1.0) 0.5 MG/DL (0.2-1.0) Aspartate Amino Transf (AST/SGOT) 22 U/L (15-37) 27 U/L (15-37) Alanine Aminotransferase (ALT/SGPT) 27 U/L (12-78) 31 U/L (12-78) Alkaline Phosphatase 126 U/L (46-116) H 133 U/L (46-116) H Total Creatine Kinase 116 U/L (26-308) Troponin I 0.009 ng/mL (0.000-0.056) C-Reactive Protein, Quantitative 10.5 mg/dL (0.00-0.90) H Pro-B-Type Natriuretic Peptide 511 pg/mL (0-125) H Total Protein 6.7 G/DL (6.4-8.2) 7.1 G/DL (6.4-8.2) Albumin 3.0 G/DL (3.4-5.0) L 2.8 G/DL (3.4-5.0) L Globulin 3.7 g/dL 4.3 g/dL Albumin/Globulin Ratio 0.8 (1.0-2.7) L 0.7 (1.0-2.7) L Lipase 148 U/L (73-393) Urine Color Yellow Urine Appearance Clear Urine pH 5 (4.5-8.0) Urine Specific [place] 1.015 (1.005-1.035) Urine Protein 3+ (NEGATIVE) H Urine Glucose (UA) 2+ (NEGATIVE) H Urine Ketones Negative (NEGATIVE) Urine Blood Negative (NEGATIVE) Urine Nitrite Negative (NEGATIVE) Urine Bilirubin Negative (NEGATIVE) Urine Urobilinogen Normal MG/DL (0.0-1.0) Urine Leukocyte Esterase Negative (NEGATIVE) Urine RBC 0-2 /HPF (0 - 0) H Urine WBC 0-2 /HPF (0 - 0) Urine Squamous Epithelial Cells Few /LPF (NONE/OCC) Urine Bacteria Few /HPF (NONE) Random Vancomycin Level 13.8 ug/mL Current Medications Medications (Trade) Dose Ordered Sig/Aylin Route PRN Reason Start Time Stop Time Status Last Admin Dose Admin Acetaminophen (Tylenol) 650 mg Q4H PRN ORAL Mild Pain/Temp > 100.5 06/01/19 22:30 07/01/19 22:29 Acetaminophen/ Codeine Phosphate (Tylenol #3) 1 tab Q4H PRN ORAL Pain Scale (3-5) 06/01/19 22:30 06/08/19 22:29 Atorvastatin Calcium (Lipitor) 40 mg BEDTIME ORAL 06/02/19 21:00 07/02/19 20:59 Bisacodyl (Dulcolax) 10 mg DAILY PRN RECTAL Constipation 06/01/19 22:30 07/01/19 22:29 Dextrose (Dextrose 50%) 25 ml Q30M PRN IV Hypoglycemia 06/01/19 22:30 07/01/19 22:29 Dextrose (Dextrose 50%) 50 ml Q30M PRN IV Hypoglycemia 06/01/19 22:30 07/01/19 22:29 Docusate Sodium (Colace) 100 mg TWICE A DAY ORAL 06/02/19 09:00 07/02/19 08:59 Escitalopram Oxalate (Lexapro) 10 mg DAILY ORAL 06/02/19 09:00 07/02/19 08:59 06/02/19 09:50 Gabapentin (Neurontin) 300 mg THREE TIMES A DAY ORAL 06/02/19 09:00 07/02/19 08:59 06/02/19 12:23 Heparin Sodium (Porcine) (Heparin 5000 units/ml) 5,000 units EVERY 12 HOURS SUBQ 06/02/19 09:00 07/02/19 08:59 Insulin Aspart (NovoLOG) 15 units NOVOTIAC SUBQ 06/02/19 06:30 07/02/19 06:29 06/02/19 12:28 Insulin Aspart (NovoLOG) CALL MD IF BS <60 OR >,400 BEFORE MEALS AND HS SUBQ 06/02/19 06:30 07/02/19 06:29 06/02/19 12:27 Insulin Detemir (Levemir) 55 units BID SUBQ 06/02/19 09:00 07/02/19 08:59 06/02/19 09:53 Lisinopril (Prinivil) 20 mg DAILY ORAL 06/02/19 09:00 07/02/19 08:59 06/02/19 09:50 Loperamide HCl (Imodium) 2 mg Q4H PRN ORAL Diarrhea 06/01/19 22:30 07/01/19 22:29 Magnesium Hydroxide (Mom) 30 ml DAILY PRN ORAL Constipation 06/01/19 22:30 07/01/19 22:29 Multivitamins Therapeutic (Therapeutic Multivitamin) 1 ea BID ORAL 06/02/19 09:00 07/02/19 08:59 06/02/19 09:49 Ondansetron HCl (Zofran) 4 mg Q8H PRN ORAL Nausea & Vomiting 06/01/19 22:30 07/01/19 22:29 Oxycodone/ Acetaminophen (Percocet 5-325) 1 tab Q4H PRN ORAL For Pain 06/01/19 22:30 06/08/19 22:29 Oxycodone/ Acetaminophen (Percocet 5-325) 1 tab Q4H PRN ORAL Severe Pain (Pain Scale 7-10) 06/01/19 22:30 06/08/19 22:29 Pantoprazole (Protonix) 40 mg DAILY ORAL 06/02/19 09:00 07/02/19 08:59 06/02/19 09:50 Piperacillin Sod/ Tazobactam Sod 3.375 gm/Sodium Chloride 110 ml @ 27.5 mls/hr EVERY 8 HOURS IVPB 06/02/19 14:00 06/07/19 13:59 Quetiapine Fumarate (SEROquel) 100 mg TWICE A DAY ORAL 06/02/19 09:00 07/02/19 08:59 06/02/19 09:51 Sodium Phosphate (Fleet's Sodium Phosl Enema) 133 ml DAILY PRN RECTAL Constipation 06/01/19 22:30 07/01/19 22:29 Vancomycin HCl (Vanco rx to dose) 1 ea DAILY PRN MISC Per rx protocol 06/01/19 18:00 07/01/19 17:59 Kwasi Martinez M.D. Jun 02, 2019 13:16
--- NOTE | 2019-06-02 14:01 | Surgery Progress Note ---
Surgery Progress Note Subjective Additional Comments no acute events states pain in right foot now no n/v/fc lab snoted pending MRI Objective Last 24 Hour Vital Signs Date Time Temp Pulse Resp B/P (MAP) Pulse Ox O2 Delivery O2 Flow Rate FiO2 06/02/19 12:00 99.0 69 19 135/76 (95) 98 06/02/19 09:50 139/79 06/02/19 08:00 99.3 66 18 139/79 (99) 97 06/01/19 23:14 Room Air 06/01/19 22:00 98.6 88 20 130/69 (89) 98 06/01/19 20:00 98.1 73 18 118/70 95 Room Air 06/01/19 19:35 98.1 79 18 123/72 95 Room Air 06/01/19 16:15 98.1 06/01/19 15:00 82 18 Room Air 06/01/19 15:00 98.1 79 18 99/64 95 Room Air 06/01/19 14:57 98.1 82 18 99/64 (76) 93 Room Air I&O Intake and Output 06/01/19 06/02/19 19:00 07:00 Intake Total 4000 ml Balance 4000 ml Intake IV Total 4000 ml # Voids 10 Laboratory Tests Test 06/01/19 15:25 06/01/19 16:55 06/02/19 07:50 White Blood Count 5.3 K/UL (4.8-10.8) 4.2 K/UL (4.8-10.8) L Red Blood Count 4.38 M/UL (4.70-6.10) L 4.55 M/UL (4.70-6.10) L Hemoglobin 12.3 G/DL (14.2-18.0) L 12.8 G/DL (14.2-18.0) L Hematocrit 37.0 % (42.0-52.0) L 39.6 % (42.0-52.0) L Mean Corpuscular Volume 84 FL (80-99) 87 FL (80-99) Mean Corpuscular Hemoglobin 28.1 PG (27.0-31.0) 28.2 PG (27.0-31.0) Mean Corpuscular Hemoglobin Concent 33.3 G/DL (32.0-36.0) 32.4 G/DL (32.0-36.0) Red Cell Distribution Width 11.8 % (11.6-14.8) 12.4 % (11.6-14.8) Platelet Count 185 K/UL (150-450) 198 K/UL (150-450) Mean Platelet Volume 5.8 FL (6.5-10.1) L 5.7 FL (6.5-10.1) L Neutrophils (%) (Auto) 79.7 % (45.0-75.0) H 71.5 % (45.0-75.0) Lymphocytes (%) (Auto) 10.9 % (20.0-45.0) L 17.3 % (20.0-45.0) L Monocytes (%) (Auto) 6.2 % (1.0-10.0) 7.6 % (1.0-10.0) Eosinophils (%) (Auto) 2.5 % (0.0-3.0) 2.9 % (0.0-3.0) Basophils (%) (Auto) 0.7 % (0.0-2.0) 0.7 % (0.0-2.0) Erythrocyte Sedimentation Rate 90 MM/HR (0-15) H Prothrombin Time 10.3 SEC (9.30-11.50) 10.2 SEC (9.30-11.50) Prothromb Time International Ratio 1.0 (0.9-1.1) 1.0 (0.9-1.1) Activated Partial Thromboplast Time 28 SEC (23-33) 28 SEC (23-33) Sodium Level 134 MMOL/L (136-145) L 133 MMOL/L (136-145) L Potassium Level 4.6 MMOL/L (3.5-5.1) 4.3 MMOL/L (3.5-5.1) Chloride Level 100 MMOL/L (98-107) 101 MMOL/L (98-107) Carbon Dioxide Level 26 MMOL/L (21-32) 28 MMOL/L (21-32) Anion Gap 8 mmol/L (5-15) 5 mmol/L (5-15) Blood Urea Nitrogen 29 mg/dL (7-18) H 23 mg/dL (7-18) H Creatinine 1.9 MG/DL (0.55-1.30) H 1.7 MG/DL (0.55-1.30) H Estimat Glomerular Filtration Rate 37.7 mL/min (>60) 42.9 mL/min (>60) Glucose Level 276 MG/DL (74-106) H 197 MG/DL (74-106) H Lactic Acid Level 1.70 mmol/L (0.4-2.0) Calcium Level 8.8 MG/DL (8.5-10.1) 8.6 MG/DL (8.5-10.1) Magnesium Level 1.9 MG/DL (1.8-2.4) Total Bilirubin 0.4 MG/DL (0.2-1.0) 0.5 MG/DL (0.2-1.0) Aspartate Amino Transf (AST/SGOT) 22 U/L (15-37) 27 U/L (15-37) Alanine Aminotransferase (ALT/SGPT) 27 U/L (12-78) 31 U/L (12-78) Alkaline Phosphatase 126 U/L (46-116) H 133 U/L (46-116) H Total Creatine Kinase 116 U/L (26-308) Troponin I 0.009 ng/mL (0.000-0.056) C-Reactive Protein, Quantitative 10.5 mg/dL (0.00-0.90) H Pro-B-Type Natriuretic Peptide 511 pg/mL (0-125) H Total Protein 6.7 G/DL (6.4-8.2) 7.1 G/DL (6.4-8.2) Albumin 3.0 G/DL (3.4-5.0) L 2.8 G/DL (3.4-5.0) L Globulin 3.7 g/dL 4.3 g/dL Albumin/Globulin Ratio 0.8 (1.0-2.7) L 0.7 (1.0-2.7) L Lipase 148 U/L (73-393) Urine Color Yellow Urine Appearance Clear Urine pH 5 (4.5-8.0) Urine Specific [place] 1.015 (1.005-1.035) Urine Protein 3+ (NEGATIVE) H Urine Glucose (UA) 2+ (NEGATIVE) H Urine Ketones Negative (NEGATIVE) Urine Blood Negative (NEGATIVE) Urine Nitrite Negative (NEGATIVE) Urine Bilirubin Negative (NEGATIVE) Urine Urobilinogen Normal MG/DL (0.0-1.0) Urine Leukocyte Esterase Negative (NEGATIVE) Urine RBC 0-2 /HPF (0 - 0) H Urine WBC 0-2 /HPF (0 - 0) Urine Squamous Epithelial Cells Few /LPF (NONE/OCC) Urine Bacteria Few /HPF (NONE) Random Vancomycin Level 13.8 ug/mL Plan Problems: (1) Cellulitis Assessment & Plan: Patient with presumed cellulitis of the lower extremity. Right lower extremity with edema and potential cellulitis patient has had history of this in the past. No abscess noted. No acute surgical intervention necessary. IV antibiotics as per infectious disease. Keep lower extremities elevated while in bed with pillows. 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 Had amputation of the lateral ray 4 years ago and states unsure when he developed ulcer. States that he receives wound care at his nursing facility. Was unsure if there is an opening. On examination patient has an open ulcer with it is down to the fat layer and unsure if any deeper. There is a foul odor but no significant active drainage. No abscess identified. Plain films noted. Minimal surrounding cellulitis. Edema of the foot. no acute surgical intervention IV ABX as per ID MRI left foot ordered plain film right foot Will follow with recs thank you (3) Renal insufficiency (4) Hyperkalemia (5) Anxiety disorder (6) Diabetic nephropathy (7) Pansinusitis (8) Renal failure (ARF), acute on chronic (9) MDD (major depressive disorder), recurrent episode, moderate (10) Gambling disorder, episodic, moderate Melquiades Rush Jun 02, 2019 14:01
[2019-06-02] MEDS: Zosyn 3.375gm q8h **Extended infusion IVPB SCH ×4 (14:02→21:18)
[2019-06-02 16:00] VITALS: BP 134/73
--- NOTE | 2019-06-02 16:07 | Diagnostic Imaging Report ---
Indication: Chronic open wound on plantar surface of foot Technique: Sagittal, coronal, and axial T1 FSE and FSE STIR images of the forefoot Comparison: Reference made to plain radiographs 06/01/2019 Findings: Patient is status post amputation of the fifth digit at the level of the midshaft metatarsal. Susceptibility artifact is seen adjacent to the stump of the fifth metatarsal, particularly in the fourth webspace. There is increased STIR and decreased T1 signal involving the proximal shaft of the fourth metatarsal. This also demonstrates periosteal thickening. Soft tissue edema is seen extending between the wound and this bone. There is suggestion of possible discrete fluid collection or multiple collections surrounding the fourth metatarsal base, particularly inferiorly and laterally. There is also fairly extensive edema of the deep musculotendinous compartments diffusely. Circumferential edema is seen in the subcutaneous fat surrounding the toes. There is also edema of the dorsal and plantar subcutaneous fat. No other marrow edema is demonstrated. Extensive abnormality of the bones of the midfoot is described in detail on separate ankle/hindfoot MRI report. Impression: Increased STIR and decreased T1 signal involving the base of the fourth metatarsal. There is also periosteal thickening. Findings are suspicious for acute on chronic osteomyelitis. There is also evidence of phlegmon versus abscess surrounding the base of the fourth metatarsal, and evidence of communication of the surrounding inflammation with the plantar ulcer. Extensive edema elsewhere, likely cellulitis given stated clinical history of infection but also possibly could be due to edema of vasogenic origin Extensive abnormality of the bones of the midfoot is described in detail on separate ankle/hindfoot MRI report, likely reflects Charcot-type changes. 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 Susceptibility artifact surrounding the stump is of uncertain etiology/significance Findings discussed by phone with Dr. Haas at the time of interpretation
--- NOTE | 2019-06-02 17:00 | Consultation ---
DATE OF CONSULTATION: 06/01/2019 INFECTIOUS DISEASE CONSULTATION CONSULTING PHYSICIAN: Kwasi Martinez M.D. REQUESTING PHYSICIAN: Dexter Haas M.D. REASON FOR CONSULTATION: Chronic left foot ulcer with infection, possible underlying osteomyelitis. Recommendation for antibiotics treatment. HISTORY OF PRESENT ILLNESS: The patient is a 48-year-old male with past medical history of diabetes, poorly controlled, left foot osteomyelitis, recurrent, status post antibiotics treatment about 3 times, hypertension, bipolar disorder, peripheral vascular disease, and Charcot-Rocio joint, presented to the emergency room with redness and swelling of his right foot and left foot ulcer draining with foul smell. The patient had a chronic left foot wound almost 4 years ago after he had his left foot fifth toe amputation due to skin cut he sustained. The patient developed gangrene, which led to amputation of the left fifth toe. Right shortly after that, he developed wound on the right foot area, which never healed completely for the last 4 years. He received antibiotics on multiple occasions. He was diagnosed with osteomyelitis at least 2 to 3 times on the left foot and he was treated with IV antibiotics for a 6-week course of treatment each with no significant healing or closing of his left foot. Lately over the last couple of days, he noticed increased draining from the left foot wound area with the yellowish exudate and foul smell. He also developed right foot lateral skin break due to tight shoes he has been wearing recently, so he presented to the emergency room with the above complaint for further evaluation and management. The patient was found to have mild cellulitis on the right foot, but large open ulcer of the left foot with exposed fat layer concerning for deep infection and osteomyelitis, he was started on vancomycin and Zosyn and Infectious Disease consultation was requested for antibiotics treatment and further management. PAST MEDICAL HISTORY: Significant for coronary artery disease, hypertension, diabetes, bipolar disorder, neuropathy, and peripheral vascular disease. PAST SURGICAL HISTORY: He had left fifth toe amputation due to gangrene he had on right big toe and distal interphalangeal amputation. MEDICATIONS: The patient received vancomycin and Zosyn in the emergency room. For the rest of his medications, please refer to MAR. ALLERGIES: He is allergic to metformin. SOCIAL HISTORY: The patient lives in the nursing home facility. Denied using any drugs, tobacco, or alcohol. FAMILY HISTORY: Noncontributory. REVIEW OF SYSTEMS: A 14-point of system reviewed were all negative apart from the one I mentioned above in my History and Physical. PHYSICAL EXAMINATION: VITAL SIGNS: Temperature 98.1, pulse 79, respirations 18, blood pressure 123/72, and saturation 95% on room air. GENERAL: A middle-aged male, lying in bed, awake, alert, oriented, not in acute distress. HEENT: Normocephalic and atraumatic. Pupils are reactive to light equally. Moist oral mucosa. No exudate. NECK: Supple. No lymphadenopathy. CARDIOVASCULAR: Regular rate and rhythm. No murmur or gallop. LUNGS: Clear bilaterally. No wheezing or rhonchi. Normal breathing efforts. ABDOMEN: Soft, nontender, and nondistended. Normal bowel sounds. No hepatosplenomegaly or ascites. EXTREMITY: He has chronic stasis dermatitis on both legs. Left foot open wound ulcer with the exposed fat layer draining serosanguineous fluid with foul smell with local tenderness. Right foot lateral skin erythema, redness, and small break on the lateral aspect. LABORATORY DATA: Labs showed white count of 5.3, hemoglobin of 12.3, hematocrit of 37, and platelet count of 185,000. BUN of 29 and creatinine of 1.9. AST of 22 and ALT of 27. Urinalysis was negative for leukocyte esterase and WBC 0 to 2. IMAGIN. Venous Doppler was negative in the right leg for DVT. 2. Left foot x-ray showed plantar surface ulcer, extensive midfoot deformities consisted with Charcot change, postsurgical change, and degenerative changes. No definite radiographic evidence of osteo. 3. Chest x-ray, no acute process. ASSESSMENT AND RECOMMENDATION: 1. Left foot ulcer, chronic with infection. Rule out underlying osteomyelitis. Suspect due to poorly controlled diabetes. Need to rule out even chronic osteo. MRI of the foot has been ordered. May need bone or tissue biopsy for culture and pathology to direct antibiotics treatment and plan of care. Continue vancomycin and Zosyn empirically for now pending further workup and cultures. [employer] is following. 2. Cellulitis of the right foot. Already on vancomycin and Zosyn. Keep leg elevated all the time. Venous Doppler to rule out DVT is negative. 3. Poorly controlled diabetes mellitus. Recommend tight glycemic control to keep blood glucose between 100 to 140. 4. Renal failure, acute on chronic. Suspect dehydration related. Continue renally-dosed medication and hydration as needed. Close monitor of renal function and urine output. Thank you for the consult. ID will continue to follow. Please feel free to call with any question. Kwasi Martinez M.D. DR: ROXIE JOB#: [id number] CC:
--- NOTE | 2019-06-02 19:34 | NUR ---
HAND-OFF: Report given to PACO CARROLL.
--- NOTE | 2019-06-02 19:36 | NUR ---
NURSE NOTES: : Pt is alert and oriented x4. pt is on RA, No SOB or acute respiratory distress noted. pt has intact iv access LFA 20G SL. Bed is locked and is in the lowest position, side rails x2. call light within easy reach. will continue to monitor.
[2019-06-02 20:00] VITALS: BP 117/68
[2019-06-02] MEDS: Atorvastatin 20mg tab ORAL SCH ×2 (21:00→21:16)
--- NOTE | 2019-06-02 21:05 | Cardiology Report ---
APPROVED REPORT EKG Measurement Heart [id number] Normal sinus rhythm Inferior infarct, age undetermined Abnormal ECG
--- NOTE | 2019-06-02 23:45 | Consultation ---
DATE OF CONSULTATION: 06/02/2019 NEPHROLOGY CONSULTATION CONSULTING PHYSICIAN: Binh Borges M.D. REFERRING PHYSICIAN: Dexter Haas M.D. REASON FOR CONSULTATION: Diabetes management. HISTORY OF PRESENT ILLNESS: The patient is a 48-year-old male with history of insulin-dependent diabetes, poorly controlled, left foot osteomyelitis, and Charcot foot, status post antibiotics treatment, and cellulitis treatment 3 times. The patient presented to the hospital with redness and swelling of the right foot and left foot ulcer draining with foul smell. The patient had previous toe amputations and the glucose is running high. Endocrinology was consulted in order to assist in the management of diabetes. PAST MEDICAL HISTORY: 1. Coronary artery disease. 2. Diabetes, out of control. 3. Hypertension. 4. Bipolar disorder. 5. Neuropathy. 6. Peripheral vascular disease. 7. Charcot foot. PAST SURGICAL HISTORY: Left fifth toe amputation due to gangrene and right big toe and distal interphalangeal amputation. MEDICATIONS: Reviewed and reconciled. ALLERGIES: Metformin. SOCIAL HISTORY: Lives in a prison facility. No smoking, alcohol, or drug use. FAMILY HISTORY: Diabetes. REVIEW OF SYSTEMS: A 12-point review of systems was performed. The pertinent positive and negative as mentioned in the history of present illness. PHYSICAL EXAMINATION: GENERAL: The patient is arousable. VITAL SIGNS: Blood pressure is 123/72, pulse of 80, temperature 98.2, and respiratory rate of 18. HEENT: Pupils are reactive to light. Sclerae anicteric. NECK: No JVD. No thyromegaly. LUNGS: Clear. ABDOMEN: Positive bowel sounds. EXTREMITIES: Charcot joint and cellulitis. LABORATORY VALUES: WBC 4, hemoglobin 12, hematocrit 39, and platelets of 198,000. Sodium 132, potassium 4.3, chloride 101, bicarb 28, BUN 23, creatinine 1.7, and glucose of 197. Lactic acid 1.7. CRP of 10.5. Lipase of 138. DIAGNOSES: 1. Left foot cellulitis. 2. Peripheral artery disease. 3. Diabetes out, of control. PLAN: 1. Continue Levemir 55 units b.i.d. 2. Increase the NovoLog to 20 units before each meal. 3. NovoLog sliding scale before meals and at bedtime. 4. Diabetic diet. 5. Further adjustment according to blood glucose values. Thank you, Dr. Haas, for the courtesy of this consultation. Binh Borges M.D. DR: LUCINDA JOB#: [id number] CC:
[2019-06-03] VITALS: BP 121/66
[2019-06-03 04:00] VITALS: BP 125/69
[2019-06-03] MEDS: Zosyn 3.375gm q8h **Extended infusion IVPB SCH ×6 (06:48→21:11)
[2019-06-03] MEDS: NovoLOG Insulin Flexpen SUBQ SCH ×7 (06:49→21:10)
--- NOTE | 2019-06-03 07:16 | NUR ---
HAND-OFF: Report given to PACO [place]
[2019-06-03 07:29] LABS: BASOPHILS % (AUTO) 0.7 % (0.0-2.0); EOSINOPHILS % (AUTO) 3.6 % (0.0-3.0); HEMOGLOBIN 12.4 G/DL (14.2-18.0); LYMPHOCYTES % (AUTO) 26.8 % (20.0-45.0); MEAN CORPUSCULAR VOLUME 87 FL (80-99); MONOCYTES % (AUTO) 11.1 % (1.0-10.0); NEUTROPHILS % (AUTO) 57.8 % (45.0-75.0); PLATELET COUNT 202 K/UL (150-450); RED BLOOD COUNT 4.38 M/UL (4.70-6.10); RED CELL DISTRIBUTION WIDTH 12.5 % (11.6-14.8)
--- NOTE | 2019-06-03 07:29 | NUR ---
NURSE NOTES: Received pt from PACO CARROLL. Pt is alert and orient x4. pt is in RA, No SOB or acute respiratory distress noted. pt has intact iv access LFA 20G SL. all needs attended, bed is locked and is in the lowest position. call light within easy reach. will continue to monitor.
--- NOTE | 2019-06-03 07:30 | General Progress Note ---
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 mellitus with diabetic nephropathy SNOMED: 60389220, 200606102 (2) MDD (major depressive disorder), recurrent episode, moderate ICD Codes: F33.1 - Major depressive disorder, recurrent, moderate SNOMED: 72164873, 335872949 (3) Poorly controlled diabetes mellitus ICD Codes: E11.65 - Type 2 diabetes mellitus with hyperglycemia SNOMED: 06972261, 009679203 (4) 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 ICD Codes: E11.621 - Type 2 diabetes mellitus with foot ulcer; L97.502 - Non- pressure chronic ulcer of other part of unspecified foot with fat layer exposed SNOMED: 978036084, 08195687 Qualifiers: Qualified Codes: E10.621 - Type 1 diabetes mellitus with foot ulcer; L97.422 - Non-pressure chronic ulcer of left heel and midfoot with fat layer exposed Assessment/Plan: increase Levemir to 60 units bid continue Novolog 20 units ac tid continue NISS ac / hs Subjective Allergies: Coded Allergies: METFORMIN (Verified Allergy, Unknown, 10/09/18) Vomiting All Systems: reviewed and negative except above Subjective events noted fasting glucose elevated Item Value Date Time Bedside Blood Glucose 274 mg/dl H 06/03/19 0650 Bedside Blood Glucose 178 mg/dl H 06/02/19 2118 Bedside Blood Glucose 260 mg/dl H 06/02/19 1713 Bedside Blood Glucose 192 mg/dl H 06/02/19 1228 Bedside Blood Glucose 267 mg/dl H 06/02/19 0953 Bedside Blood Glucose 267 mg/dl H 06/02/19 0629 Objective Last 24 Hour Vital Signs Date Time Temp Pulse Resp B/P (MAP) Pulse Ox O2 Delivery O2 Flow Rate FiO2 06/03/19 04:00 97.5 60 18 125/69 (87) 95 06/03/19 00:00 97.5 68 18 121/66 (84) 95 06/02/19 21:00 Room Air 06/02/19 20:00 97.7 62 18 117/68 (84) 95 06/02/19 16:00 99.0 73 18 134/73 (93) 94 06/02/19 12:00 99.0 69 19 135/76 (95) 98 06/02/19 09:50 139/79 7/22/19 09:00 Room Air 06/02/19 08:00 99.3 66 18 139/79 (99) 97 Intake and Output 06/02/19 06/03/19 19:00 07:00 Intake Total 865.000 ml Balance 865.000 ml Intake Oral 480 ml IV Total 385.000 ml # Voids 4 # Bowel Movements 1 Laboratory Tests 06/02/19 07:50: White Blood Count 4.2L, Red Blood Count 4.55L, Hemoglobin 12.8L, Hematocrit 39.6L, Mean Corpuscular Volume 87, Mean Corpuscular Hemoglobin 28.2, Mean Corpuscular Hemoglobin Concent 32.4, Red Cell Distribution Width 12.4, Platelet Count 198, Mean Platelet Volume 5.7L, Neutrophils (%) (Auto) 71.5, Lymphocytes ( %) (Auto) 17.3L, Monocytes (%) (Auto) 7.6, Eosinophils (%) (Auto) 2.9, Basophils (%) (Auto) 0.7, Prothrombin Time 10.2, Prothromb Time International Ratio 1.0, Activated Partial Thromboplast Time 28, Sodium Level 133L, Potassium Level 4.3, Chloride Level 101, Carbon Dioxide Level 28, Anion Gap 5, Blood Urea Nitrogen 23H, Creatinine 1.7H, Estimat Glomerular Filtration Rate 42.9, Glucose Level 197H, Calcium Level 8.6, Total Bilirubin 0.5, Aspartate Amino Transf (AST/ SGOT) 27, Alanine Aminotransferase (ALT/SGPT) 31, Alkaline Phosphatase 133H, Total Protein 7.1, Albumin 2.8L, Globulin 4.3, Albumin/Globulin Ratio 0.7L, Random Vancomycin Level 13.8 06/03/19 06:31: White Blood Count [Pending], Red Blood Count [Pending], Hemoglobin [Pending], Hematocrit [Pending], Mean Corpuscular Volume [Pending], Mean Corpuscular Hemoglobin [Pending], Mean Corpuscular Hemoglobin Concent [Pending], Red Cell Distribution Width [Pending], Platelet Count [Pending], Mean Platelet Volume [ Pending], Neutrophils (%) (Auto) [Pending], Lymphocytes (%) (Auto) [Pending], Monocytes (%) (Auto) [Pending], Eosinophils (%) (Auto) [Pending], Basophils (%) (Auto) [Pending], Sodium Level [Pending], Potassium Level [Pending], Chloride Level [Pending], Carbon Dioxide Level [Pending], Blood Urea Nitrogen [Pending], Creatinine [Pending], Estimat Glomerular Filtration Rate [Pending], Glucose Level [Pending], Calcium Level [Pending], Total Bilirubin [Pending], Aspartate Amino Transf (AST/SGOT) [Pending], Alanine Aminotransferase (ALT/SGPT) [Pending] , Alkaline Phosphatase [Pending], Total Protein [Pending], Albumin [Pending], Globulin [Pending], Random Vancomycin Level 10.8 Height (Feet): 5 Height (Inches): 8.00 Weight (Pounds): 216 General Appearance: no apparent distress Neck: normal alignment Cardiovascular: normal rate Respiratory/Chest: lungs clear Abdomen: normal bowel sounds Objective Current Medications Medications (Trade) Dose Ordered Sig/Aylin Route PRN Reason Start Time Stop Time Status Last Admin Dose Admin Acetaminophen (Tylenol) 650 mg Q4H PRN ORAL Mild Pain/Temp > 100.5 06/01/19 22:30 07/01/19 22:29 Acetaminophen/ Codeine Phosphate (Tylenol #3) 1 tab Q4H PRN ORAL Pain Scale (3-5) 06/01/19 22:30 06/08/19 22:29 Atorvastatin Calcium (Lipitor) 40 mg BEDTIME ORAL 06/02/19 21:00 07/02/19 20:59 Bisacodyl (Dulcolax) 10 mg DAILY PRN RECTAL Constipation 06/01/19 22:30 07/01/19 22:29 Dextrose (Dextrose 50%) 25 ml Q30M PRN IV Hypoglycemia 06/01/19 22:30 07/01/19 22:29 Dextrose (Dextrose 50%) 50 ml Q30M PRN IV Hypoglycemia 06/01/19 22:30 07/01/19 22:29 Docusate Sodium (Colace) 100 mg TWICE A DAY ORAL 06/02/19 09:00 07/02/19 08:59 Escitalopram Oxalate (Lexapro) 10 mg DAILY ORAL 06/02/19 09:00 07/02/19 08:59 06/02/19 09:50 Gabapentin (Neurontin) 300 mg THREE TIMES A DAY ORAL 06/02/19 09:00 07/02/19 08:59 06/02/19 17:12 Heparin Sodium (Porcine) (Heparin 5000 units/ml) 5,000 units EVERY 12 HOURS SUBQ 06/02/19 09:00 07/02/19 08:59 06/02/19 21:17 Insulin Aspart (NovoLOG) 20 units NOVOTIAC SUBQ 06/03/19 06:30 07/02/19 06:29 06/03/19 06:49 Insulin Aspart (NovoLOG) CALL MD IF BS <60 OR >,400 BEFORE MEALS AND HS SUBQ 06/02/19 06:30 07/02/19 06:29 06/03/19 06:49 Insulin Detemir (Levemir) 55 units BID SUBQ 06/02/19 09:00 07/02/19 08:59 06/02/19 17:13 Lisinopril (Prinivil) 20 mg DAILY ORAL 06/02/19 09:00 07/02/19 08:59 06/02/19 09:50 Loperamide HCl (Imodium) 2 mg Q4H PRN ORAL Diarrhea 06/01/19 22:30 07/01/19 22:29 Magnesium Hydroxide (Mom) 30 ml DAILY PRN ORAL Constipation 06/01/19 22:30 07/01/19 22:29 Multivitamins Therapeutic (Therapeutic Multivitamin) 1 ea BID ORAL 06/02/19 09:00 07/02/19 08:59 06/02/19 17:12 Ondansetron HCl (Zofran) 4 mg Q8H PRN ORAL Nausea & Vomiting 06/01/19 22:30 07/01/19 22:29 Oxycodone/ Acetaminophen (Percocet 5-325) 1 tab Q4H PRN ORAL For Pain 06/01/19 22:30 06/08/19 22:29 Oxycodone/ Acetaminophen (Percocet 5-325) 1 tab Q4H PRN ORAL Severe Pain (Pain Scale 7-10) 06/01/19 22:30 06/08/19 22:29 Pantoprazole (Protonix) 40 mg DAILY ORAL 06/02/19 09:00 07/02/19 08:59 06/02/19 09:50 Piperacillin Sod/ Tazobactam Sod 3.375 gm/Sodium Chloride 110 ml @ 27.5 mls/hr EVERY 8 HOURS IVPB 06/02/19 14:00 06/07/19 13:59 06/03/19 06:48 Quetiapine Fumarate (SEROquel) 100 mg TWICE A DAY ORAL 06/02/19 09:00 07/02/19 08:59 06/02/19 17:12 Sodium Phosphate (Fleet's Sodium Phosl Enema) 133 ml DAILY PRN RECTAL Constipation 06/01/19 22:30 07/01/19 22:29 Vancomycin HCl (Vanco rx to dose) 1 ea DAILY PRN MISC Per rx protocol 06/01/19 18:00 07/01/19 17:59 Binh Borges MD Jun 03, 2019 07:30
[2019-06-03 07:33] LABS: ALANINE AMINOTRANSFERASE 29 U/L (12-78); ALBUMIN 2.7 G/DL (3.4-5.0); ALBUMIN/GLOBULIN RATIO 0.7 (1.0-2.7); ALKALINE PHOSPHATASE 119 U/L (46-116); ANION GAP 7 mmol/L (5-15); ASPARTATE AMINO TRANSFERASE 21 U/L (15-37); BILIRUBIN,TOTAL 0.3 MG/DL (0.2-1.0); BLOOD UREA NITROGEN 21 mg/dL (7-18); CALCIUM 8.7 MG/DL (8.5-10.1); CARBON DIOXIDE 28 MMOL/L (21-32); CHLORIDE 101 MMOL/L (98-107); CREATININE 1.6 MG/DL (0.55-1.30); POTASSIUM 4.7 MMOL/L (3.5-5.1); SODIUM 136 MMOL/L (136-145)
[2019-06-03 08:00] VITALS: BP 137/82
--- NOTE | 2019-06-03 08:01 | NUR ---
RADIOLOGY: RT. FOOT X-RAYS COMPLETED 0750HRS. NF
[2019-06-03] MEDS: Docusate 100mg cap ORAL SCH ×3 (08:15→18:00)
[2019-06-03] MEDS: Lisinopril 20mg tab ORAL SCH (08:16)
[2019-06-03] MEDS: Multivitamin w/Minerals tab ORAL SCH ×2 (08:16→17:11)
[2019-06-03] MEDS: Heparin 5000 units/ml inj SUBQ SCH ×4 (08:18→21:11)
[2019-06-03] MEDS: Levemir Flexpen SUBQ SCH ×2 (08:39→17:11)
--- NOTE | 2019-06-03 08:50 | Diagnostic Imaging Report ---
Indication: Right foot pain Technique: 3 views right foot Comparison: none Findings: Patient is status post amputation of the first digit at the level of the interphalangeal joint. There is a fracture of the proximal shaft of the third metatarsal. Acuity of this fracture is indeterminate. The proximal fragment appears displaced dorsally, and appears subluxed in relation to the adjacent lateral cuneiform. There is also likely alignment abnormality of the lateral cuneiform in relationship to the cuboid. There is severe hammertoe deformity of the second through fifth digits. There are chronic appearing erosive changes of the fifth metatarsal head. No acute appearing erosions, osteolytic process, or unusual periosteal reaction demonstrated. Impression: Age indeterminate ununited fracture of the right third metatarsal. Evidence of prior first digit amputation at the level of the interphalangeal joint Evidence of midfoot subluxation, likely representing early Charcot changes given the findings reported on the left foot Deformities as noted Note chronic appearing erosive changes of the fifth metatarsal head, probably due to degenerative changes No definite plain radiographic evidence of osteomyelitis. Note, however, limited sensitivity of plain radiographs for such. Consider MRI or bone scan if there is high clinical suspicion
--- NOTE | 2019-06-03 08:50 | NUR ---
NURSE NOTES: pt refused heparin and Colace. the meds waisted in med room.
[2019-06-03] MEDS ORDERED: Vancomycin 1.5 GM in NS 275 ML IVPB SCH (11:00)
[2019-06-03 12:00] VITALS: BP 134/83
--- NOTE | 2019-06-03 12:50 | General Progress Note ---
Assessment/Plan Status: stable Assessment/Plan: S: I am ok O: seems comfortable, pain is well managed. PHYSICAL EXAMINATION: HEAD AND NECK: multiple molars with plaques, Atraumatic and normocephalic. CHEST: Clear to auscultation. No wheezing. No crackles. HEART: S1 and S2. Regular rate and rhythm. No S3. No S4. ABDOMEN: Soft. No organomegaly. MUSCULOSKELETAL: Positive for Charcot's foot. Positive for stump of the prior tarsometatarsal resections. open wound in plantar aspect of left foot NEUROLOGIC: The patient is awake, alert, and oriented x3. PSYCHIATRIC: Mood and affect is elated. Meds: reviewed and reconcilled A/P: 1- Acute OM of left IV MT Bone 2- DM- uncontrolled 3. Non compliance with medications 3- Charcot Foot 4- HTN 5- Psych 6. Chronic KD Plan: Case D/w Podiatry and ID Pending results of cultures, patient needs 6-8 weeks of IV abx treatment Subjective Allergies: Coded Allergies: METFORMIN (Verified Allergy, Unknown, 10/09/18) Vomiting Objective Last 24 Hour Vital Signs Date Time Temp Pulse Resp B/P (MAP) Pulse Ox O2 Delivery O2 Flow Rate FiO2 06/03/19 09:00 Room Air 06/03/19 08:16 137/82 06/03/19 08:00 98.1 71 18 137/82 (100) 95 06/03/19 04:00 97.5 60 18 125/69 (87) 95 06/03/19 00:00 97.5 68 18 121/66 (84) 95 06/02/19 21:00 Room Air 06/02/19 20:00 97.7 62 18 117/68 (84) 95 06/02/19 16:00 99.0 73 18 134/73 (93) 94 Intake and Output 06/02/19 06/03/19 19:00 07:00 Intake Total 865.000 ml 240 ml Balance 865.000 ml 240 ml Intake Oral 480 ml 240 ml IV Total 385.000 ml # Voids 4 # Bowel Movements 1 Laboratory Tests 06/03/19 06:31: White Blood Count 4.0L, Red Blood Count 4.38L, Hemoglobin 12.4L, Hematocrit 38.0L, Mean Corpuscular Volume 87, Mean Corpuscular Hemoglobin 28.3, Mean Corpuscular Hemoglobin Concent 32.7, Red Cell Distribution Width 12.5, Platelet Count 202, Mean Platelet Volume 5.7L, Neutrophils (%) (Auto) 57.8, Lymphocytes ( %) (Auto) 26.8, Monocytes (%) (Auto) 11.1H, Eosinophils (%) (Auto) 3.6H, Basophils (%) (Auto) 0.7, Sodium Level 136, Potassium Level 4.7, Chloride Level 101, Carbon Dioxide Level 28, Anion Gap 7, Blood Urea Nitrogen 21H, Creatinine 1.6H, Estimat Glomerular Filtration Rate 46.0, Glucose Level 316#H, Calcium Level 8.7, Total Bilirubin 0.3, Aspartate Amino Transf (AST/SGOT) 21, Alanine Aminotransferase (ALT/SGPT) 29, Alkaline Phosphatase 119H, Total Protein 6.4, Albumin 2.7L, Globulin 3.7, Albumin/Globulin Ratio 0.7L, Random Vancomycin Level 10.8 Height (Feet): 5 Height (Inches): 8.00 Weight (Pounds): 216 Dexter Haas MD Jun 03, 2019 12:50
--- NOTE | 2019-06-03 12:54 | Surgery Progress Note ---
Surgery Progress Note Subjective Additional Comments MRI noted plain films noted podiatry input appreciated Objective Last 24 Hour Vital Signs Date Time Temp Pulse Resp B/P (MAP) Pulse Ox O2 Delivery O2 Flow Rate FiO2 06/03/19 12:00 97.2 61 18 134/83 (100) 95 06/03/19 09:00 Room Air 06/03/19 08:16 137/82 06/03/19 08:00 98.1 71 18 137/82 (100) 95 06/03/19 04:00 97.5 60 18 125/69 (87) 95 06/03/19 00:00 97.5 68 18 121/66 (84) 95 06/02/19 21:00 Room Air 06/02/19 20:00 97.7 62 18 117/68 (84) 95 06/02/19 16:00 99.0 73 18 134/73 (93) 94 I&O Intake and Output 06/02/19 06/03/19 19:00 07:00 Intake Total 865.000 ml 240 ml Balance 865.000 ml 240 ml Intake Oral 480 ml 240 ml IV Total 385.000 ml # Voids 4 # Bowel Movements 1 Dressing: saturated Wound: other Drains: other Cardiovascular: RSR Respiratory: clear Abdomen: soft, non-tender, present bowel sounds Extremities: edema, tenderness, no cyanosis Laboratory Tests Test 06/03/19 06:31 White Blood Count 4.0 K/UL (4.8-10.8) L Red Blood Count 4.38 M/UL (4.70-6.10) L Hemoglobin 12.4 G/DL (14.2-18.0) L Hematocrit 38.0 % (42.0-52.0) L Mean Corpuscular Volume 87 FL (80-99) Mean Corpuscular Hemoglobin 28.3 PG (27.0-31.0) Mean Corpuscular Hemoglobin Concent 32.7 G/DL (32.0-36.0) Red Cell Distribution Width 12.5 % (11.6-14.8) Platelet Count 202 K/UL (150-450) Mean Platelet Volume 5.7 FL (6.5-10.1) L Neutrophils (%) (Auto) 57.8 % (45.0-75.0) Lymphocytes (%) (Auto) 26.8 % (20.0-45.0) Monocytes (%) (Auto) 11.1 % (1.0-10.0) H Eosinophils (%) (Auto) 3.6 % (0.0-3.0) H Basophils (%) (Auto) 0.7 % (0.0-2.0) Sodium Level 136 MMOL/L (136-145) Potassium Level 4.7 MMOL/L (3.5-5.1) Chloride Level 101 MMOL/L (98-107) Carbon Dioxide Level 28 MMOL/L (21-32) Anion Gap 7 mmol/L (5-15) Blood Urea Nitrogen 21 mg/dL (7-18) H Creatinine 1.6 MG/DL (0.55-1.30) H Estimat Glomerular Filtration Rate 46.0 mL/min (>60) Glucose Level 316 MG/DL (74-106) #H Calcium Level 8.7 MG/DL (8.5-10.1) Total Bilirubin 0.3 MG/DL (0.2-1.0) Aspartate Amino Transf (AST/SGOT) 21 U/L (15-37) Alanine Aminotransferase (ALT/SGPT) 29 U/L (12-78) Alkaline Phosphatase 119 U/L (46-116) H Total Protein 6.4 G/DL (6.4-8.2) Albumin 2.7 G/DL (3.4-5.0) L Globulin 3.7 g/dL Albumin/Globulin Ratio 0.7 (1.0-2.7) L Random Vancomycin Level 10.8 ug/mL Plan Problems: (1) Cellulitis Assessment & Plan: Patient with presumed cellulitis of the lower extremity. Right lower extremity with edema and potential cellulitis patient has had history of this in the past. No abscess noted. No acute surgical intervention necessary. IV antibiotics as per infectious disease. Keep lower extremities elevated while in bed with pillows. 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 Had amputation of the lateral ray 4 years ago and states unsure when he developed ulcer. States that he receives wound care at his nursing facility. Was unsure if there is an opening. On examination patient has an open ulcer with it is down to the fat layer and unsure if any deeper. There is a foul odor but no significant active drainage. No abscess identified. Plain films noted. Minimal surrounding cellulitis. Edema of the foot. Impression: Increased STIR and decreased T1 signal involving the base of the fourth metatarsal. There is also periosteal thickening. Findings are suspicious for acute on chronic osteomyelitis. There is also evidence of phlegmon versus abscess surrounding the base of the fourth metatarsal, and evidence of communication of the surrounding inflammation with the plantar ulcer. Extensive edema elsewhere, likely cellulitis given stated clinical history of infection but also possibly could be due to edema of vasogenic origin Extensive abnormality of the bones of the midfoot is described in detail on separate ankle/hindfoot MRI report, likely reflects Charcot-type changes. 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 Susceptibility artifact surrounding the stump is of uncertain etiology/significance no acute surgical intervention IV ABX as per ID debridement by podiatry today Will follow with recs thank you (3) Renal insufficiency (4) Hyperkalemia (5) Anxiety disorder (6) Diabetic nephropathy (7) Pansinusitis (8) Renal failure (ARF), acute on chronic (9) MDD (major depressive disorder), recurrent episode, moderate (10) Gambling disorder, episodic, moderate Melquiades Rush Jun 03, 2019 12:54
--- NOTE | 2019-06-03 12:58 | NUR ---
NURSE NOTES: Dr MADRID visited pt and he is aware about WBC and other lab results and V/S, no new order to RN. Will continue to monitor.
--- NOTE | 2019-06-03 14:16 | Infectious Diseases Prog Note ---
Assessment/Plan Problems: (1) Foot ulcer due to secondary DM Assessment & Plan: suspect chronic with underlying acute on chronic osteomyelitis of the fourth metatarsal bon as per MRI of the foot . S/P surgical debridement by insurance actuary , will verify with him whether he sent tissue for culture . otherwise bone or tissue biopsy is needed for culture and pathology to direct antibiotics treatment and plan of care due to the chronicity of the bone infection and his left foot . continue vancomycin and zosyn empirically , pending cultures . will need life long oral antibiotics for suppresion after done with IV , for his chronic osteomyelitis . D/W primary and insurance actuary . (2) Cellulitis of right foot Assessment & Plan: already on vancomycin and zosyn . keep leg elevated all the time while in bed. venous Doppler to rule out DVT (3) Poorly controlled diabetes mellitus Assessment & Plan: recommend tight glycemic control to keep blood glucose between 100-140 (4) Renal failure (ARF), acute on chronic Assessment & Plan: suspect dehydration, continue renally dosed medications and hydration as needed, close monitor of renal function and UOP Subjective Constitutional: Reports: no symptoms HEENT: Reports: no symptoms Respiratory: Reports: no symptoms Breasts: Reports: no symptoms Cardiovascular: Reports: no symptoms Gastrointestinal/Abdominal: Reports: no symptoms Genitourinary: Reports: no symptoms Neurologic: Reports: no symptoms Psychiatric: Reports: anxiety Skin: Reports: ulcer Endocrine: Reports: no symptoms Hematologic: Reports: no symptoms Musculoskeletal: Reports: pain Allergies: Coded Allergies: METFORMIN (Verified Allergy, Unknown, 10/09/18) Vomiting Objective Vital Signs Last 24 Hour Vital Signs Date Time Temp Pulse Resp B/P (MAP) Pulse Ox O2 Delivery O2 Flow Rate FiO2 06/03/19 12:00 97.2 61 18 134/83 (100) 95 06/03/19 09:00 Room Air 06/03/19 08:16 137/82 06/03/19 08:00 98.1 71 18 137/82 (100) 95 06/03/19 04:00 97.5 60 18 125/69 (87) 06/03/19 00:00 97.5 68 18 121/66 (84) 95 06/02/19 21:00 Room Air 06/02/19 20:00 97.7 62 18 117/68 (84) 95 06/02/19 16:00 99.0 73 18 134/73 (93) 94 Height (Feet): 5 Height (Inches): 8.00 Weight (Pounds): 216 General Appearance: WD/WN, no acute distress HEENT: normocephalic, atraumatic, anicteric, mucous membranes moist, PERRL, EOMI, pharynx normal, supple, no JVD Respiratory/Chest: chest wall non-tender, lungs clear, normal breath sounds, no respiratory distress, no accessory muscle use Cardiovascular: normal peripheral pulses, normal rate, regular rhythm, no gallop/murmur, no JVD Abdomen: normal bowel sounds, soft, non tender, no organomegaly, non distended , no mass, no scars Genitourinary: normal external genitalia Extremities: no cyanosis, no clubbing Skin: no rash, no lesions, ulcers 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, alert, responsive Lymphatic: no neck adenopathy, no groin adenopathy Musculoskeletal: no effusion, other - left foot pain with charcot deformities Microbiology Date/Time Source Procedure Growth Status 06/01/19 15:25 Blood Blood Culture - Preliminary NO GROWTH AFTER 24 HOURS Resulted 06/01/19 15:25 Blood Blood Culture - Preliminary NO GROWTH AFTER 24 HOURS Resulted 06/01/19 20:19 Nasal Nares MRSA Culture - Final Staphylococcus Aureus - Mrsa Complete 06/01/19 13:30 Foot Left Gram Stain - Final Resulted 06/01/19 13:30 Wound Culture - Preliminary Gram Negative Kofi Diphtheroids Resulted Laboratory Tests Test 06/03/19 06:31 White Blood Count 4.0 K/UL (4.8-10.8) L Red Blood Count 4.38 M/UL (4.70-6.10) L Hemoglobin 12.4 G/DL (14.2-18.0) L Hematocrit 38.0 % (42.0-52.0) L Mean Corpuscular Volume 87 FL (80-99) Mean Corpuscular Hemoglobin 28.3 PG (27.0-31.0) Mean Corpuscular Hemoglobin Concent 32.7 G/DL (32.0-36.0) Red Cell Distribution Width 12.5 % (11.6-14.8) Platelet Count 202 K/UL (150-450) Mean Platelet Volume 5.7 FL (6.5-10.1) L Neutrophils (%) (Auto) 57.8 % (45.0-75.0) Lymphocytes (%) (Auto) 26.8 % (20.0-45.0) Monocytes (%) (Auto) 11.1 % (1.0-10.0) H Eosinophils (%) (Auto) 3.6 % (0.0-3.0) H Basophils (%) (Auto) 0.7 % (0.0-2.0) Sodium Level 136 MMOL/L (136-145) Potassium Level 4.7 MMOL/L (3.5-5.1) Chloride Level 101 MMOL/L (98-107) Carbon Dioxide Level 28 MMOL/L (21-32) Anion Gap 7 mmol/L (5-15) Blood Urea Nitrogen 21 mg/dL (7-18) H Creatinine 1.6 MG/DL (0.55-1.30) H Estimat Glomerular Filtration Rate 46.0 mL/min (>60) Glucose Level 316 MG/DL (74-106) #H Calcium Level 8.7 MG/DL (8.5-10.1) Total Bilirubin 0.3 MG/DL (0.2-1.0) Aspartate Amino Transf (AST/SGOT) 21 U/L (15-37) Alanine Aminotransferase (ALT/SGPT) 29 U/L (12-78) Alkaline Phosphatase 119 U/L (46-116) H Total Protein 6.4 G/DL (6.4-8.2) Albumin 2.7 G/DL (3.4-5.0) L Globulin 3.7 g/dL Albumin/Globulin Ratio 0.7 (1.0-2.7) L Random Vancomycin Level 10.8 ug/mL Current Medications Medications (Trade) Dose Ordered Sig/Aylin Route PRN Reason Start Time Stop Time Status Last Admin Dose Admin Acetaminophen (Tylenol) 650 mg Q4H PRN ORAL Mild Pain/Temp > 100.5 06/01/19 22:30 07/01/19 22:29 Acetaminophen/ Codeine Phosphate (Tylenol #3) 1 tab Q4H PRN ORAL Pain Scale (3-5) 06/01/19 22:30 06/08/19 22:29 Atorvastatin Calcium (Lipitor) 40 mg BEDTIME ORAL 06/02/19 21:00 07/02/19 20:59 Bisacodyl (Dulcolax) 10 mg DAILY PRN RECTAL Constipation 06/01/19 22:30 07/01/19 22:29 Dextrose (Dextrose 50%) 25 ml Q30M PRN IV Hypoglycemia 06/01/19 22:30 07/01/19 22:29 Dextrose (Dextrose 50%) 50 ml Q30M PRN IV Hypoglycemia 06/01/19 22:30 07/01/19 22:29 Docusate Sodium (Colace) 100 mg TWICE A DAY ORAL 06/02/19 09:00 07/02/19 08:59 Escitalopram Oxalate (Lexapro) 10 mg DAILY ORAL 06/02/19 09:00 07/02/19 08:59 06/03/19 08:16 Gabapentin (Neurontin) 300 mg THREE TIMES A DAY ORAL 06/02/19 09:00 07/02/19 08:59 06/03/19 12:10 Heparin Sodium (Porcine) (Heparin 5000 units/ml) 5,000 units EVERY 12 HOURS SUBQ 06/02/19 09:00 07/02/19 08:59 06/02/19 21:17 Insulin Aspart (NovoLOG) 20 units NOVOTIAC SUBQ 06/03/19 06:30 07/02/19 06:29 06/03/19 12:10 Insulin Aspart (NovoLOG) CALL MD IF BS <60 OR >,400 BEFORE MEALS AND HS SUBQ 06/02/19 06:30 07/02/19 06:29 06/03/19 12:09 Insulin Detemir (Levemir) 60 units BID SUBQ 06/03/19 09:00 07/02/19 08:59 06/03/19 08:39 Lisinopril (Prinivil) 20 mg DAILY ORAL 06/02/19 09:00 07/02/19 08:59 06/03/19 08:16 Loperamide HCl (Imodium) 2 mg Q4H PRN ORAL Diarrhea 06/01/19 22:30 07/01/19 22:29 Magnesium Hydroxide (Mom) 30 ml DAILY PRN ORAL Constipation 06/01/19 22:30 07/01/19 22:29 Multivitamins Therapeutic (Therapeutic Multivitamin) 1 ea BID ORAL 06/02/19 09:00 07/02/19 08:59 06/03/19 08:16 Ondansetron HCl (Zofran) 4 mg Q8H PRN ORAL Nausea & Vomiting 06/01/19 22:30 07/01/19 22:29 Oxycodone/ Acetaminophen (Percocet 5-325) 1 tab Q4H PRN ORAL For Pain 06/01/19 22:30 06/08/19 22:29 Oxycodone/ Acetaminophen (Percocet 5-325) 1 tab Q4H PRN ORAL Severe Pain (Pain Scale 7-10) 06/01/19 22:30 06/08/19 22:29 Pantoprazole (Protonix) 40 mg DAILY ORAL 06/02/19 09:00 07/02/19 08:59 06/03/19 08:16 Piperacillin Sod/ Tazobactam Sod 3.375 gm/Sodium Chloride 110 ml @ 27.5 mls/hr EVERY 8 HOURS IVPB 06/02/19 14:00 06/07/19 13:59 06/03/19 06:48 Quetiapine Fumarate (SEROquel) 100 mg TWICE A DAY ORAL 06/02/19 09:00 07/02/19 08:59 06/03/19 08:16 Sodium Phosphate (Fleet's Sodium Phosl Enema) 133 ml DAILY PRN RECTAL Constipation 06/01/19 22:30 07/01/19 22:29 Vancomycin HCl (Vanco rx to dose) 1 ea DAILY PRN MISC Per rx protocol 06/01/19 18:00 07/01/19 17:59 Kwasi Martinez M.D. Jun 03, 2019 14:16
--- NOTE | 2019-06-03 15:51 | NUR ---
NURSE NOTES:WOUND CARE FOLLOW-UP NOTES: Excisional debridement of wound plantar L foot done by at bedside. Small amt bleeding noted . Bone is exposed at base of wound. Post debridement wound irrigated with Saline. Packed with Iodoform gauze. covered with Abd pad and wrapped with Kerlix wrap. Pt tolerated procedure well.
[2019-06-03 16:00] VITALS: BP 141/78
--- NOTE | 2019-06-03 16:39 | Anethesia Preoperative Eval ---
Anesthesia Pre-op PMH/ROS General Date of Evaluation: Jun 03, 2019 Time of Evaluation: 16:35 Anesthesiologist: Leslee ASA Score: ASA 3 Mallampati Score Class I : Soft palate, uvula, fauces, pillars visible Class II: Soft palate, uvula, fauces visible Class III: Soft palate, base of uvula visible Class IV: Only hard plate visible Mallampati Classification: Class III Surgeon: ARA Diagnosis: L foot chronic wound Surgical Procedure: Bone Bx. Anesthesia History: none Family History: no anesthesia problems Allergies: Coded Allergies: METFORMIN (Verified Allergy, Unknown, 10/09/18) Vomiting Medications: see eMAR Patient NPO?: Yes Past Medical History Cardiovascular: Reports: HTN; Denies: CAD, SD, valve dz, arrhythmia, other Pulmonary: Denies: asthma, COPD, IGOR, other Gastrointestinal/Genitourinary: Reports: GERD, CRI; Denies: ESRD, other Neurologic/Psychiatric: Reports: depression/anxiety, other - chronic pain, bipolar disorder; Denies: dementia, CVA, TIA Endocrine: Reports: DM - poorly controlled; Denies: hypothyroidism, steroids, other HEENT: Denies: cataract (L), cataract (R), glaucoma, TELIDA (L), TELIDA (R), other Hematology/Immune: Reports: anemia - mild; Denies: DVT, bleeding disorder, other Musculoskeletal/Integumentary: Reports: OA; Denies: RA, DJD, DDD, edema, other Other: obesity PMH Narrative: as above PSxH Narrative: see H&P Anesthesia Pre-op Phys. Exam Physician Exam Last Vital Signs Date Time Temp Pulse Resp B/P (MAP) Pulse Ox O2 Delivery O2 Flow Rate FiO2 06/03/19 16:00 97.9 61 18 141/78 (99) 98 06/03/19 09:00 Room Air Constitutional: NAD Neurologic: CN 2-12 intact Cardiovascular: RRR, no M/R/G Respiratory: CTA Gastrointestinal: other - obesity Airway Exam Mallampati Score: Class III MO: limited Neck: short ROM: limited Teeth: missing Dentures: no upper, no lower Anesthesia Pre-op A/P Labs Hematology Test 06/03/19 06:31 White Blood Count 4.0 K/UL (4.8-10.8) L Red Blood Count 4.38 M/UL (4.70-6.10) L Hemoglobin 12.4 G/DL (14.2-18.0) L Hematocrit 38.0 % (42.0-52.0) L Mean Corpuscular Volume 87 FL (80-99) Mean Corpuscular Hemoglobin 28.3 PG (27.0-31.0) Mean Corpuscular Hemoglobin Concent 32.7 G/DL (32.0-36.0) Red Cell Distribution Width 12.5 % (11.6-14.8) Platelet Count 202 K/UL (150-450) Mean Platelet Volume 5.7 FL (6.5-10.1) L Neutrophils (%) (Auto) 57.8 % (45.0-75.0) Lymphocytes (%) (Auto) 26.8 % (20.0-45.0) Monocytes (%) (Auto) 11.1 % (1.0-10.0) H Eosinophils (%) (Auto) 3.6 % (0.0-3.0) H Basophils (%) (Auto) 0.7 % (0.0-2.0) Chemistry Test 06/03/19 06:31 Sodium Level 136 MMOL/L (136-145) Potassium Level 4.7 MMOL/L (3.5-5.1) Chloride Level 101 MMOL/L (98-107) Carbon Dioxide Level 28 MMOL/L (21-32) Anion Gap 7 mmol/L (5-15) Blood Urea Nitrogen 21 mg/dL (7-18) H Creatinine 1.6 MG/DL (0.55-1.30) H Estimat Glomerular Filtration Rate 46.0 mL/min (>60) Glucose Level 316 MG/DL (74-106) #H Calcium Level 8.7 MG/DL (8.5-10.1) Total Bilirubin 0.3 MG/DL (0.2-1.0) Aspartate Amino Transf (AST/SGOT) 21 U/L (15-37) Alanine Aminotransferase (ALT/SGPT) 29 U/L (12-78) Alkaline Phosphatase 119 U/L (46-116) H Total Protein 6.4 G/DL (6.4-8.2) Albumin 2.7 G/DL (3.4-5.0) L Globulin 3.7 g/dL Albumin/Globulin Ratio 0.7 (1.0-2.7) L Risk Assessment & Plan Assessment: ASA 3 Plan: MAC vs GA Pre-Antibiotics Drug: as scheduled Félix Caballero MD Jun 03, 2019 16:39
[2019-06-03] MEDS: oxyCODONE HCL/Acetaminophen 5/325mg ORAL PRN (16:51)
--- NOTE | 2019-06-03 17:17 | Diagnostic Imaging Report ---
Indication: Chronic open wound on plantar surface of the left foot Technique: Sagittal, axial, coronal T1 FSE and FSE STIR images of the ankle and hindfoot Comparison: none Findings: There is an ulcer in the subcutaneous fat inferior to the midfoot. There is marked abnormality of the bones of the midfoot, with inferior displacement and rotation of the navicular, inferior displacement and considerable volume loss of the cuboid bone, and advanced volume loss and chronic appearing destructive changes of the cuneiforms. Bones of the midfoot have essentially slipped inferiorly, and the bases of the metatarsals have migrated posteriorly, with the first metatarsal base almost directly articulating with the anterior talus. This second and third metatarsal base is also to some extent articulate with the anterior talus, whereas the fourth and fifth metatarsal bases articulating to some extent with the anterior calcaneus. The medial cuneiform has been subluxed medially. There is some marrow abnormality involving the shaft of the fourth metacarpal. This demonstrates increased STIR and slightly decreased T1 signal. There is also considerable periosteal thickening of the fourth metatarsal. No other definite marrow signal abnormality is demonstrated. There is evidence of prior amputation of the shaft of the fifth metatarsal. There is unusual susceptibility artifact surrounding the stump of the fifth metatarsal. Etiology/significance of this is uncertain, as no metal is seen in this area on recent radiograph. There is soft tissue edema of the subcutaneous fat circumferentially. There is also edema of the deep compartments which is fairly diffuse. No definite discrete collection to suggest drainable abscess Impression: Advanced arthritic abnormality of the midfoot, as described detailed above. This is most likely on the basis of Charcot changes. There is surprisingly little marrow edema despite this Evidence of marrow edema and periosteal thickening involving the fourth metatarsal proximally. This is concerning for acute osteomyelitis and is thought less likely to be due to Charcot changes. Extensive edema of the subcutaneous fat as well as the deep compartments. Given stated clinical history, likely secondary to cellulitis/myositis, although could be edema of vasogenic origin. Correlate with clinical history and findings. No discrete collections to suggest drainable abscess demonstrated. Evidence of prior midshaft fifth metatarsal amputation also described on prior plain radiograph Susceptibility artifact surrounding the fifth metatarsal stump, etiology/significance uncertain given absence of apparent metal in this area on recent radiograph
--- NOTE | 2019-06-03 19:35 | NUR ---
HAND-OFF: Report given to RN SUPA.
--- NOTE | 2019-06-03 19:40 | NUR ---
NURSE NOTES: RECEIVED PT FROM PACO NUÑEZ. PT IS AWAKE, AAOX4, ON ROOM AIR. NO ACUTE DISTRESS NOTED. PT DENIES PAIN AT THE MOMENT. DRESSING ON LEFT FOOT IN INTACT AND DRY. IV ON LEFT FA 20G IS INTACT AND PATENT. WALKER AT BEDSIDE. BED IS LOCKED AT THE LOWEST POSITION, BED ALARMS ACTIVE, SIDE RAILS UP X2, AND CALL LIGHT IS WITHIN REACH. WILL CONTINUE TO MONITOR.
[2019-06-03 20:00] VITALS: BP 136/74
[2019-06-03] MEDS: Atorvastatin 20mg tab ORAL SCH (21:11)
[2019-06-04] VITALS: BP 138/75
[2019-06-04 04:00] VITALS: BP 98/57
--- NOTE | 2019-06-04 04:30 | Consultation ---
DATE OF CONSULTATION: 06/03/2019 CONSULTING PHYSICIAN: Dexter Haas M.D. REASON FOR CONSULTATION: Ulceration to the left foot. HISTORY OF PRESENT ILLNESS: This is a 48-year-old diabetic patient who was admitted to [facility] with diabetic foot ulcerations to the left foot. The patient states that he has a history of chronic ulceration to the left foot with a history of multiple debridements including surgical debridement and amputation to left foot and right foot. The patient states that status post surgical debridement he was given a [employer] boot, which he had been wearing and states off and on ulceration gets worse and better. He has been seen multiple times by the food service specialist for debridement and followup. The patient states that recently in the past two days, he noted that it started getting worse on the plantar aspect of the left foot especially since the Charcot deformity has been developed. White count noted to be within normal limits. The patient denies fever, chills, nausea, or vomiting. Currently, he is on IV Zosyn and vancomycin. PAST MEDICAL HISTORY: Diabetes, cellulitis, Charcot deformity, osteomyelitis, toe amputation, renal failure, diabetic neuropathy, ulceration to bilateral feet. PODIATRY EXAMINATION: VASCULAR: Dorsalis pedis was not palpable bilaterally. Posterior tibial artery is palpable on the right foot. Edema is noted to the dorsal aspect of the left foot and the right leg. NEUROLOGICAL: Sharp and dull proprioception, protective threshold noted to be diminished consistent with peripheral neuropathy. MUSCULOSKELETAL: Medial arch collapse is noted on the right foot with pronated flatfoot consistent with Charcot deformity. Range of motion to the left foot and ankle noted to be decreased. There is an amputation site of the left fifth ray. Muscle strength to the left foot noted to be slightly decreased. Attention was directed to the right foot where a surgical amputation of the distal aspect of the right hallux was noted. There is a prominent right fifth metatarsal head. No sign of ulceration or. Range of motion noted to be within normal limits. Muscle strength noted to be within normal limits. There is no other gross abnormality to the right foot. DERMATOLOGICAL: Attention was directed to the left foot. Hyperpigmentation is noted from the proximal aspect of the metatarsophalangeal joint to distal aspect of the leg. There is an ulceration noted to the left midfoot area plantar aspect probing to bone. There is foul odor. There is no purulent discharge. There is slight cellulitis in the periwound. The base of the ulceration noted to be fibrotic, necrotic tissue. ASSESSMENT AND PLAN: Diabetic patient with peripheral neuropathy, history of left Charcot, and osteomyelitis. MRI is positive for chronic and acute osteomyelitis of the left fourth metatarsal base area over the plantar ulceration. Excisional debridement was initiated to the left midfoot plantar aspect ulceration. All nonviable tissue was removed. The wound was packed with the gauze. Order was written to change the gauze dressing once a day. My recommendation is to continue IV antibiotics for 6-8 weeks and repeat MRI. If osteomyelitis is still present, the patient may benefit from amputation. Omar Bright D.P.M DR: Rafael JOB#: [id number] CC: JOVON
[2019-06-04] MEDS: NovoLOG Insulin Flexpen SUBQ SCH ×7 (06:39→22:06)
[2019-06-04] MEDS: Zosyn 3.375gm q8h **Extended infusion IVPB SCH ×6 (06:40→22:02)
--- NOTE | 2019-06-04 06:43 | General Progress Note ---
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 ICD Codes: E11.621 - Type 2 diabetes mellitus with foot ulcer; L97.502 - Non- pressure chronic ulcer of other part of unspecified foot with fat layer exposed SNOMED: 580910176, 16051371 Qualifiers: Qualified Codes: E10.621 - Type 1 diabetes mellitus with foot ulcer; L97.422 - Non-pressure chronic ulcer of left heel and midfoot with fat layer exposed Status: stable Assessment/Plan: increase Levemir to 66 units bid increase Novolog to 24 units ac tid continue NISS ac / hs Subjective Allergies: Coded Allergies: METFORMIN (Verified Allergy, Unknown, 10/09/18) Vomiting All Systems: reviewed and negative except above Subjective events noted fasting glucose elevated Item Value Date Time Bedside Blood Glucose 312 mg/dl H 06/04/19 0640 Bedside Blood Glucose 368 mg/dl H 06/03/19 2110 Bedside Blood Glucose 229 mg/dl H 06/03/19 1711 Bedside Blood Glucose 254 mg/dl H 06/03/19 1210 Bedside Blood Glucose 274 mg/dl H 06/03/19 0839 Bedside Blood Glucose 274 mg/dl H 06/03/19 0650 Objective Last 24 Hour Vital Signs Date Time Temp Pulse Resp B/P (MAP) Pulse Ox O2 Delivery O2 Flow Rate FiO2 06/04/19 04:00 60 18 98/57 (71) 98 06/04/19 00:00 98.1 61 18 138/75 (96) 96 06/03/19 21:00 Room Air 06/03/19 20:00 98.4 63 20 136/74 (94) 97 06/03/19 17:21 97.9 06/03/19 16:00 97.9 61 18 141/78 (99) 98 06/03/19 12:00 97.2 61 18 134/83 (100) 95 7/23/19 09:00 Room Air 06/03/19 08:16 137/82 06/03/19 08:00 98.1 71 18 137/82 (100) 95 Intake and Output 06/03/19 06/04/19 19:00 07:00 Intake Total 915.0 ml 110.0 ml Balance 915.0 ml 110.0 ml Intake Oral 420 ml IV Total 495.0 ml 110.0 ml # Voids 3 2 Height (Feet): 5 Height (Inches): 8.00 Weight (Pounds): 215 General Appearance: no apparent distress Neck: normal alignment Cardiovascular: normal rate Respiratory/Chest: lungs clear Abdomen: normal bowel sounds Pelvis: normal external exam Objective Current Medications Medications (Trade) Dose Ordered Sig/Aylin Route PRN Reason Start Time Stop Time Status Last Admin Dose Admin Acetaminophen (Tylenol) 650 mg Q4H PRN ORAL Mild Pain/Temp > 100.5 06/01/19 22:30 07/01/19 22:29 Acetaminophen/ Codeine Phosphate (Tylenol #3) 1 tab Q4H PRN ORAL Pain Scale (3-5) 06/01/19 22:30 06/08/19 22:29 Atorvastatin Calcium (Lipitor) 40 mg BEDTIME ORAL 06/02/19 21:00 07/02/19 20:59 06/03/19 21:11 Bisacodyl (Dulcolax) 10 mg DAILY PRN RECTAL Constipation 06/01/19 22:30 07/01/19 22:29 Dextrose (Dextrose 50%) 25 ml Q30M PRN IV Hypoglycemia 06/01/19 22:30 07/01/19 22:29 Dextrose (Dextrose 50%) 50 ml Q30M PRN IV Hypoglycemia 06/01/19 22:30 07/01/19 22:29 Docusate Sodium (Colace) 100 mg TWICE A DAY ORAL 06/02/19 09:00 07/02/19 08:59 Escitalopram Oxalate (Lexapro) 10 mg DAILY ORAL 06/02/19 09:00 07/02/19 08:59 06/03/19 08:16 Gabapentin (Neurontin) 300 mg THREE TIMES A DAY ORAL 06/02/19 09:00 07/02/19 08:59 06/03/19 17:11 Heparin Sodium (Porcine) (Heparin 5000 units/ml) 5,000 units EVERY 12 HOURS SUBQ 06/02/19 09:00 07/02/19 08:59 06/02/19 21:17 Insulin Aspart (NovoLOG) 20 units NOVOTIAC SUBQ 06/03/19 06:30 07/02/19 06:29 06/04/19 06:40 Insulin Aspart (NovoLOG) CALL MD IF BS <60 OR >,400 BEFORE MEALS AND HS SUBQ 06/02/19 06:30 07/02/19 06:29 06/04/19 06:39 Insulin Detemir (Levemir) 60 units BID SUBQ 06/03/19 09:00 07/02/19 08:59 06/03/19 17:11 Lisinopril (Prinivil) 20 mg DAILY ORAL 06/02/19 09:00 07/02/19 08:59 06/03/19 08:16 Loperamide HCl (Imodium) 2 mg Q4H PRN ORAL Diarrhea 06/01/19 22:30 07/01/19 22:29 Magnesium Hydroxide (Mom) 30 ml DAILY PRN ORAL Constipation 06/01/19 22:30 07/01/19 22:29 Multivitamins Therapeutic (Therapeutic Multivitamin) 1 ea BID ORAL 06/02/19 09:00 07/02/19 08:59 06/03/19 17:11 Ondansetron HCl (Zofran) 4 mg Q8H PRN ORAL Nausea & Vomiting 06/01/19 22:30 07/01/19 22:29 Oxycodone/ Acetaminophen (Percocet 5-325) 1 tab Q4H PRN ORAL For Pain 06/01/19 22:30 06/08/19 22:29 06/03/19 16:51 Oxycodone/ Acetaminophen (Percocet 5-325) 1 tab Q4H PRN ORAL Severe Pain (Pain Scale 7-10) 06/01/19 22:30 06/08/19 22:29 Pantoprazole (Protonix) 40 mg DAILY ORAL 06/02/19 09:00 07/02/19 08:59 06/03/19 08:16 Piperacillin Sod/ Tazobactam Sod 3.375 gm/Sodium Chloride 110 ml @ 27.5 mls/hr EVERY 8 HOURS IVPB 06/02/19 14:00 06/07/19 13:59 06/04/19 06:40 Quetiapine Fumarate (SEROquel) 100 mg TWICE A DAY ORAL 06/02/19 09:00 07/02/19 08:59 06/03/19 17:14 Sodium Phosphate (Fleet's Sodium Phosl Enema) 133 ml DAILY PRN RECTAL Constipation 06/01/19 22:30 07/01/19 22:29 Vancomycin HCl (Vanco rx to dose) 1 ea DAILY PRN MISC Per rx protocol 06/01/19 18:00 07/01/19 17:59 Binh Borges MD Jun 04, 2019 06:43
--- NOTE | 2019-06-04 07:31 | NUR ---
HAND-OFF: Report given to PACO DON.
--- NOTE | 2019-06-04 07:32 | NUR ---
NURSE NOTES: Received pt from Manjula, RN. Patient is sleeping on the bed. No s/s of distress/pain. Room air. IV on L FA 24g running zosyn. Walker at bedside. Call light within reach. Bed in the lowest, and locked. Will continue to monitor
[2019-06-04 08:00] VITALS: BP 121/75
[2019-06-04 08:39] LABS: BASOPHILS % (AUTO) 0.7 % (0.0-2.0); EOSINOPHILS % (AUTO) 3.3 % (0.0-3.0); HEMATOCRIT 39.6 % (42.0-52.0); HEMOGLOBIN 12.7 G/DL (14.2-18.0); LYMPHOCYTES % (AUTO) 23.4 % (20.0-45.0); MEAN CORPUSCULAR VOLUME 87 FL (80-99); MONOCYTES % (AUTO) 6.3 % (1.0-10.0); NEUTROPHILS % (AUTO) 66.3 % (45.0-75.0); PLATELET COUNT 226 K/UL (150-450); RED BLOOD COUNT 4.58 M/UL (4.70-6.10); RED CELL DISTRIBUTION WIDTH 12.7 % (11.6-14.8); WHITE BLOOD COUNT 4.5 K/UL (4.8-10.8)
[2019-06-04] MEDS: Heparin 5000 units/ml inj SUBQ SCH ×3 (08:57→22:05)
[2019-06-04] MEDS: Docusate 100mg cap ORAL SCH ×2 (09:00→17:56)
[2019-06-04 09:01] LABS: ALANINE AMINOTRANSFERASE 30 U/L (12-78); ALBUMIN 2.7 G/DL (3.4-5.0); ALBUMIN/GLOBULIN RATIO 0.6 (1.0-2.7); ALKALINE PHOSPHATASE 124 U/L (46-116); ANION GAP 11 mmol/L (5-15); ASPARTATE AMINO TRANSFERASE 22 U/L (15-37); BILIRUBIN,TOTAL 0.3 MG/DL (0.2-1.0); BLOOD UREA NITROGEN 23 mg/dL (7-18); CALCIUM 8.9 MG/DL (8.5-10.1); CARBON DIOXIDE 25 MMOL/L (21-32); CHLORIDE 103 MMOL/L (98-107); CREATININE 1.7 MG/DL (0.55-1.30); POTASSIUM 4.4 MMOL/L (3.5-5.1); SODIUM 139 MMOL/L (136-145)
[2019-06-04] MEDS: Lisinopril 20mg tab ORAL SCH (09:46)
[2019-06-04] MEDS: Multivitamin w/Minerals tab ORAL SCH ×2 (09:46→17:50)
[2019-06-04] MEDS: Levemir Flexpen SUBQ SCH ×2 (09:49→19:38)
[2019-06-04] MEDS: oxyCODONE HCL/Acetaminophen 5/325mg ORAL PRN (09:54)
--- NOTE | 2019-06-04 10:06 | General Progress Note ---
Assessment/Plan Status: stable Assessment/Plan: S: I am ok O: seems comfortable, pain is well managed. PHYSICAL EXAMINATION: HEAD AND NECK: multiple molars with plaques, Atraumatic and normocephalic. CHEST: Clear to auscultation. No wheezing. No crackles. HEART: S1 and S2. Regular rate and rhythm. No S3. No S4. ABDOMEN: Soft. No organomegaly. MUSCULOSKELETAL: Positive for Charcot's foot. Positive for stump of the prior tarsometatarsal resections. open wound in plantar aspect of left foot NEUROLOGIC: The patient is awake, alert, and oriented x3. PSYCHIATRIC: Mood and affect is elated. Meds: reviewed and reconciled A/P: 1- Acute OM of left IV MT Bone 2- DM- uncontrolled 3. Non compliance with medications 3- Charcot Foot 4- HTN 5- Psych 6. Chronic KD Plan: Case D/w Podiatry and ID Medically patient is Stable , to proceed with bone biopsy procedure per podiatry. Pending results of cultures, patient needs 6-8 weeks of IV abx treatment Subjective Allergies: Coded Allergies: METFORMIN (Verified Allergy, Unknown, 10/09/18) Vomiting Objective Last 24 Hour Vital Signs Date Time Temp Pulse Resp B/P (MAP) Pulse Ox O2 Delivery O2 Flow Rate FiO2 06/04/19 09:46 121/75 06/04/19 09:00 Room Air 06/04/19 08:00 97.3 69 19 121/75 (90) 100 06/04/19 04:00 60 18 98/57 (71) 98 06/04/19 00:00 98.1 61 18 138/75 (96) 96 06/03/19 21:00 Room Air 06/03/19 20:00 98.4 63 20 136/74 (94) 97 06/03/19 17:21 97.9 06/03/19 16:00 97.9 61 18 141/78 (99) 98 06/03/19 12:00 97.2 61 18 134/83 (100) 95 Intake and Output 06/03/19 06/04/19 19:00 07:00 Intake Total 915.0 ml 110.0 ml Balance 915.0 ml 110.0 ml Intake Oral 420 ml IV Total 495.0 ml 110.0 ml # Voids 3 2 Laboratory Tests 06/04/19 08:20: White Blood Count 4.5L, Red Blood Count 4.58L, Hemoglobin 12.7L, Hematocrit 39.6L, Mean Corpuscular Volume 87, Mean Corpuscular Hemoglobin 27.8, Mean Corpuscular Hemoglobin Concent 32.1, Red Cell Distribution Width 12.7, Platelet Count 226, Mean Platelet Volume 5.3L, Neutrophils (%) (Auto) 66.3, Lymphocytes ( %) (Auto) 23.4, Monocytes (%) (Auto) 6.3, Eosinophils (%) (Auto) 3.3H, Basophils (%) (Auto) 0.7, Sodium Level 139, Potassium Level 4.4, Chloride Level 103, Carbon Dioxide Level 25, Anion Gap 11, Blood Urea Nitrogen 23H, Creatinine 1.7H, Estimat Glomerular Filtration Rate 42.9, Glucose Level 229H, Calcium Level 8.9, Total Bilirubin 0.3, Aspartate Amino Transf (AST/SGOT) 22, Alanine Aminotransferase (ALT/SGPT) 30, Alkaline Phosphatase 124H, Total Protein 7.2, Albumin 2.7L, Globulin 4.5, Albumin/Globulin Ratio 0.6L Height (Feet): 5 Height (Inches): 8.00 Weight (Pounds): 215 Dexter Haas MD Jun 04, 2019 10:06
[2019-06-04] MEDS ORDERED: Tylenol #3 tab (300mg/30mg) ORAL PRN (11:30)
--- NOTE | 2019-06-04 11:34 | NUR ---
RD ASSESSMENT & RECOMMENDATIONS SEE CARE ACTIVITY FOR COMPLETE ASSESSMENT DAILY ESTIMATED NEEDS: Needs based on Wound, obese, uncontrolled DM 83kg adj 20-25 kcals/kg 6567-3689 total kcals 1.25-1.5 g protein/kg 103-124 g total protein 25-30 mL/kg 1280-2286 total fluid mLs NUTRITION DIAGNOSIS: * Increased protein intake needs R/T wound healing as evidenced by /p excisional debridement of wound plantar L foot, bone is exposed at base of wound. * Altered nutrition related lab values R/T diabetes as evidenced by elev POC glu ([phone]) CURRENT DIET: CCHO MED + HYACINTH PO DIET RECOMMENDATIONS: CCHO LOW + LOW NA + DOUBLE PROTEIN PORTIONS ADDITIONAL RECOMMENDATIONS: 1) Obtain a standing weight as able 2) Wound healing: Add Vit C 500mg QD, ZnSO4 220mg QD x 10 days : Continue MVI x 1 : Pt refused Edson 3) High protein/ 1 carb snack in b/w meals 4) A1C for eval of glycemic control- A1C on 11/22/18 was 11.5
[2019-06-04 12:00] VITALS: BP 98/59
--- NOTE | 2019-06-04 14:12 | Infectious Diseases Prog Note ---
Assessment/Plan Problems: (1) Foot ulcer due to secondary DM Assessment & Plan: suspect chronic with underlying acute on chronic osteomyelitis of the fourth metatarsal bon as per MRI of the foot . S/P surgical debridement by deburr technician , no tissue was sent for culture from the debridement . recommend fourth metatarsal bone biopsy or deep tissue biopsy for culture to direct antibiotics treatment and plan of care due to the chronicity of the bone infection in his left foot . continue vancomycin and zosyn empirically for now , pending tissue culture . will need life long oral antibiotics for suppression after done with IV , for his chronic osteomyelitis . D/W primary and deburr technician . (2) Cellulitis of right foot Assessment & Plan: already on vancomycin and zosyn . keep leg elevated all the time while in bed. venous Doppler to rule out DVT (3) Poorly controlled diabetes mellitus Assessment & Plan: recommend tight glycemic control to keep blood glucose between 100-140 (4) Renal failure (ARF), acute on chronic Assessment & Plan: suspect dehydration, continue renally dosed medications and hydration as needed, close monitor of renal function and UOP Subjective Constitutional: Reports: no symptoms HEENT: Reports: no symptoms Respiratory: Reports: no symptoms Breasts: Reports: no symptoms Cardiovascular: Reports: no symptoms Gastrointestinal/Abdominal: Reports: no symptoms Genitourinary: Reports: no symptoms Neurologic: Reports: no symptoms Psychiatric: Reports: no symptoms Skin: Reports: ulcer Endocrine: Reports: no symptoms Hematologic: Reports: no symptoms Musculoskeletal: Reports: pain, other Allergies: Coded Allergies: METFORMIN (Verified Allergy, Unknown, 10/09/18) Vomiting Subjective left foot discomfort Objective Vital Signs Last 24 Hour Vital Signs Date Time Temp Pulse Resp B/P (MAP) Pulse Ox O2 Delivery O2 Flow Rate FiO2 06/04/19 12:00 98.3 98 18 98/59 (72) 98 06/04/19 09:46 121/75 06/04/19 09:00 Room Air 06/04/19 08:00 97.3 69 19 121/75 (90) 100 06/04/19 04:00 60 18 98/57 (71) 98 06/04/19 00:00 98.1 61 18 138/75 (96) 96 06/03/19 21:00 Room Air 06/03/19 20:00 98.4 63 20 136/74 (94) 97 06/03/19 17:21 97.9 06/03/19 16:00 97.9 61 18 141/78 (99) 98 Height (Feet): 5 Height (Inches): 8.00 Weight (Pounds): 215 General Appearance: WD/WN, no acute distress HEENT: normocephalic, atraumatic, anicteric, mucous membranes moist, PERRL Respiratory/Chest: chest wall non-tender, lungs clear, normal breath sounds, no respiratory distress, no accessory muscle use Cardiovascular: normal peripheral pulses, normal rate, regular rhythm, no gallop/murmur, no JVD Abdomen: normal bowel sounds, soft, non tender, no organomegaly, non distended , no mass, no scars Extremities: no cyanosis, no clubbing Skin: no rash, no lesions, ulcers - covered with dressings Neurologic/Psychiatric: alert, oriented x 3, responsive Lymphatic: no neck adenopathy, no groin adenopathy Musculoskeletal: normal muscle bulk, no effusion Microbiology Date/Time Source Procedure Growth Status 06/01/19 15:25 Blood Blood Culture - Preliminary NO GROWTH AFTER 48 HOURS Resulted 06/01/19 15:25 Blood Blood Culture - Preliminary NO GROWTH AFTER 48 HOURS Resulted 06/01/19 20:19 Nasal Nares MRSA Culture - Final Staphylococcus Aureus - Mrsa Complete Laboratory Tests Test 06/04/19 08:20 White Blood Count 4.5 K/UL (4.8-10.8) L Red Blood Count 4.58 M/UL (4.70-6.10) L Hemoglobin 12.7 G/DL (14.2-18.0) L Hematocrit 39.6 % (42.0-52.0) L Mean Corpuscular Volume 87 FL (80-99) Mean Corpuscular Hemoglobin 27.8 PG (27.0-31.0) Mean Corpuscular Hemoglobin Concent 32.1 G/DL (32.0-36.0) Red Cell Distribution Width 12.7 % (11.6-14.8) Platelet Count 226 K/UL (150-450) Mean Platelet Volume 5.3 FL (6.5-10.1) L Neutrophils (%) (Auto) 66.3 % (45.0-75.0) Lymphocytes (%) (Auto) 23.4 % (20.0-45.0) Monocytes (%) (Auto) 6.3 % (1.0-10.0) Eosinophils (%) (Auto) 3.3 % (0.0-3.0) H Basophils (%) (Auto) 0.7 % (0.0-2.0) Sodium Level 139 MMOL/L (136-145) Potassium Level 4.4 MMOL/L (3.5-5.1) Chloride Level 103 MMOL/L (98-107) Carbon Dioxide Level 25 MMOL/L (21-32) Anion Gap 11 mmol/L (5-15) Blood Urea Nitrogen 23 mg/dL (7-18) H Creatinine 1.7 MG/DL (0.55-1.30) H Estimat Glomerular Filtration Rate 42.9 mL/min (>60) Glucose Level 229 MG/DL (74-106) H Calcium Level 8.9 MG/DL (8.5-10.1) Total Bilirubin 0.3 MG/DL (0.2-1.0) Aspartate Amino Transf (AST/SGOT) 22 U/L (15-37) Alanine Aminotransferase (ALT/SGPT) 30 U/L (12-78) Alkaline Phosphatase 124 U/L (46-116) H Total Protein 7.2 G/DL (6.4-8.2) Albumin 2.7 G/DL (3.4-5.0) L Globulin 4.5 g/dL Albumin/Globulin Ratio 0.6 (1.0-2.7) L Current Medications Medications (Trade) Dose Ordered Sig/Aylin Route PRN Reason Start Time Stop Time Status Last Admin Dose Admin Acetaminophen (Tylenol) 650 mg Q4H PRN ORAL Mild Pain/Temp > 100.5 06/01/19 22:30 07/01/19 22:29 Acetaminophen/ Codeine Phosphate (Tylenol #3) 1 tab Q4H PRN ORAL PAIN 4-6 06/04/19 11:30 06/08/19 22:29 Atorvastatin Calcium (Lipitor) 40 mg BEDTIME ORAL 06/02/19 21:00 07/02/19 20:59 06/03/19 21:11 Bisacodyl (Dulcolax) 10 mg DAILY PRN RECTAL Constipation 06/01/19 22:30 07/01/19 22:29 Dextrose (Dextrose 50%) 25 ml Q30M PRN IV Hypoglycemia 06/01/19 22:30 07/01/19 22:29 Dextrose (Dextrose 50%) 50 ml Q30M PRN IV Hypoglycemia 06/01/19 22:30 07/01/19 22:29 Docusate Sodium (Colace) 100 mg TWICE A DAY ORAL 06/02/19 09:00 07/02/19 08:59 Escitalopram Oxalate (Lexapro) 10 mg DAILY ORAL 06/02/19 09:00 07/02/19 08:59 06/04/19 09:46 Gabapentin (Neurontin) 300 mg THREE TIMES A DAY ORAL 06/02/19 09:00 07/02/19 08:59 06/04/19 13:50 Heparin Sodium (Porcine) (Heparin 5000 units/ml) 5,000 units EVERY 12 HOURS SUBQ 06/02/19 09:00 07/02/19 08:59 06/02/19 21:17 Insulin Aspart (NovoLOG) 24 units NOVOTIAC SUBQ 06/04/19 11:50 07/02/19 06:29 06/04/19 12:06 Insulin Aspart (NovoLOG) CALL MD IF BS <60 OR >,400 BEFORE MEALS AND HS SUBQ 06/02/19 06:30 07/02/19 06:29 06/04/19 12:06 Insulin Detemir (Levemir) 64 units BID SUBQ 06/04/19 09:00 07/02/19 08:59 06/04/19 09:49 Lisinopril (Prinivil) 20 mg DAILY ORAL 06/02/19 09:00 07/02/19 08:59 06/04/19 09:46 Loperamide HCl (Imodium) 2 mg Q4H PRN ORAL Diarrhea 06/01/19 22:30 07/01/19 22:29 Magnesium Hydroxide (Mom) 30 ml DAILY PRN ORAL Constipation 06/01/19 22:30 07/01/19 22:29 Multivitamins Therapeutic (Therapeutic Multivitamin) 1 ea BID ORAL 06/02/19 09:00 07/02/19 08:59 06/04/19 09:46 Ondansetron HCl (Zofran) 4 mg Q8H PRN ORAL Nausea & Vomiting 06/01/19 22:30 07/01/19 22:29 Oxycodone/ Acetaminophen (Percocet 5-325) 1 tab Q4H PRN ORAL Severe Pain (Pain Scale 7-10) 06/01/19 22:30 06/08/19 22:29 Pantoprazole (Protonix) 40 mg DAILY ORAL 06/02/19 09:00 07/02/19 08:59 06/04/19 09:46 Piperacillin Sod/ Tazobactam Sod 3.375 gm/Sodium Chloride 110 ml @ 27.5 mls/hr EVERY 8 HOURS IVPB 06/02/19 14:00 06/07/19 13:59 06/04/19 06:40 Quetiapine Fumarate (SEROquel) 100 mg TWICE A DAY ORAL 06/02/19 09:00 07/02/19 08:59 06/04/19 09:46 Sodium Phosphate (Fleet's Sodium Phosl Enema) 133 ml DAILY PRN RECTAL Constipation 06/01/19 22:30 07/01/19 22:29 Vancomycin HCl (Vanco rx to dose) 1 ea DAILY PRN MISC Per rx protocol 06/01/19 18:00 07/01/19 17:59 Kwasi Martinez M.D. Jun 04, 2019 14:12
[2019-06-04 16:00] VITALS: BP 130/72
--- NOTE | 2019-06-04 16:08 | Surgery Progress Note ---
Surgery Progress Note Subjective Symptoms: improved Objective Last 24 Hour Vital Signs Date Time Temp Pulse Resp B/P (MAP) Pulse Ox O2 Delivery O2 Flow Rate FiO2 06/04/19 12:00 98.3 98 18 98/59 (72) 98 06/04/19 09:46 121/75 06/04/19 09:00 Room Air 06/04/19 08:00 97.3 69 19 121/75 (90) 100 06/04/19 04:00 60 18 98/57 (71) 98 06/04/19 00:00 98.1 61 18 138/75 (96) 96 06/03/19 21:00 Room Air 06/03/19 20:00 98.4 63 20 136/74 (94) 97 06/03/19 17:21 97.9 I&O Intake and Output 06/03/19 06/04/19 19:00 07:00 Intake Total 915.0 ml 110.0 ml Balance 915.0 ml 110.0 ml Intake Oral 420 ml IV Total 495.0 ml 110.0 ml # Voids 3 2 Dressing: saturated Wound: clean Cardiovascular: RSR Respiratory: clear Abdomen: soft, present bowel sounds Extremities: other Laboratory Tests Test 06/04/19 08:20 White Blood Count 4.5 K/UL (4.8-10.8) L Red Blood Count 4.58 M/UL (4.70-6.10) L Hemoglobin 12.7 G/DL (14.2-18.0) L Hematocrit 39.6 % (42.0-52.0) L Mean Corpuscular Volume 87 FL (80-99) Mean Corpuscular Hemoglobin 27.8 PG (27.0-31.0) Mean Corpuscular Hemoglobin Concent 32.1 G/DL (32.0-36.0) Red Cell Distribution Width 12.7 % (11.6-14.8) Platelet Count 226 K/UL (150-450) Mean Platelet Volume 5.3 FL (6.5-10.1) L Neutrophils (%) (Auto) 66.3 % (45.0-75.0) Lymphocytes (%) (Auto) 23.4 % (20.0-45.0) Monocytes (%) (Auto) 6.3 % (1.0-10.0) Eosinophils (%) (Auto) 3.3 % (0.0-3.0) H Basophils (%) (Auto) 0.7 % (0.0-2.0) Sodium Level 139 MMOL/L (136-145) Potassium Level 4.4 MMOL/L (3.5-5.1) Chloride Level 103 MMOL/L (98-107) Carbon Dioxide Level 25 MMOL/L (21-32) Anion Gap 11 mmol/L (5-15) Blood Urea Nitrogen 23 mg/dL (7-18) H Creatinine 1.7 MG/DL (0.55-1.30) H Estimat Glomerular Filtration Rate 42.9 mL/min (>60) Glucose Level 229 MG/DL (74-106) H Calcium Level 8.9 MG/DL (8.5-10.1) Total Bilirubin 0.3 MG/DL (0.2-1.0) Aspartate Amino Transf (AST/SGOT) 22 U/L (15-37) Alanine Aminotransferase (ALT/SGPT) 30 U/L (12-78) Alkaline Phosphatase 124 U/L (46-116) H Total Protein 7.2 G/DL (6.4-8.2) Albumin 2.7 G/DL (3.4-5.0) L Globulin 4.5 g/dL Albumin/Globulin Ratio 0.6 (1.0-2.7) L Plan Problems: (1) Cellulitis Assessment & Plan: Patient with presumed cellulitis of the lower extremity. Right lower extremity with edema and potential cellulitis patient has had history of this in the past. No abscess noted. No acute surgical intervention necessary. IV antibiotics as per infectious disease. Keep lower extremities elevated while in bed with pillows. 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 Had amputation of the lateral ray 4 years ago and states unsure when he developed ulcer. States that he receives wound care at his nursing facility. Was unsure if there is an opening. On examination patient has an open ulcer with it is down to the fat layer and unsure if any deeper. There is a foul odor but no significant active drainage. No abscess identified. Plain films noted. Minimal surrounding cellulitis. Edema of the foot. Impression: Increased STIR and decreased T1 signal involving the base of the fourth metatarsal. There is also periosteal thickening. Findings are suspicious for acute on chronic osteomyelitis. There is also evidence of phlegmon versus abscess surrounding the base of the fourth metatarsal, and evidence of communication of the surrounding inflammation with the plantar ulcer. Extensive edema elsewhere, likely cellulitis given stated clinical history of infection but also possibly could be due to edema of vasogenic origin Extensive abnormality of the bones of the midfoot is described in detail on separate ankle/hindfoot MRI report, likely reflects Charcot-type changes. 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 Susceptibility artifact surrounding the stump is of uncertain etiology/significance no acute surgical intervention IV ABX as per ID debridement by podiatry cont dressings pending path Will follow with recs thank you (3) Renal insufficiency (4) Hyperkalemia (5) Anxiety disorder (6) Diabetic nephropathy (7) Pansinusitis (8) Renal failure (ARF), acute on chronic (9) MDD (major depressive disorder), recurrent episode, moderate (10) Gambling disorder, episodic, moderate Melquiades Rush Jun 04, 2019 16:08
--- NOTE | 2019-06-04 17:04 | NUR ---
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 DIABETIC FOOT ULCER VS: BP 98/57, P 98, T 97.3, RR 19, SpO2 98 WBC 4.5, RBC 4.58, H&H 12.7/39.6, BUN 23, CR 1.7 IS:ZOSYN 110ml IVPB TYLENOL #3 1tab GABAPENTIN 300Mg NOVOLOG SUBQ LEVEMIR SUBQ PLAN: PENDING PATH IV ABX DEBRIDEMENT BY PODIATRY CONT. DRESSING MED/SURG STATUS
--- NOTE | 2019-06-04 19:20 | NUR ---
NURSE NOTES: RECEIVED PT FROM PACO DON. PT IS ASLEEP, ON ROOM AIR, NO ACUTE DISTRESS NOTED. DRESSINGS ON LEFT FOOT IS INTACT AND DRY. IV ON LEFT FA 24G IS INTACT AND PATENT. PT IS AWARE OF NPO ORDER AT MIDNIGHT. OBTAINED CONSENT FORM FOR LEFT FOOT BIOPSY. WALKER AT BEDSIDE. BED IS LOCKED AT LOWEST POSITION, BED ALARMS ACTIVE, SIDE RAILS UP X2 AND CALL LIGHT IS WITHIN REACH. WILL CONTINUE TO MONITOR.
--- NOTE | 2019-06-04 19:42 | NUR ---
HAND-OFF: Report given to PACO Fair.
[2019-06-04 20:00] VITALS: BP 119/65
[2019-06-04] MEDS: Atorvastatin 20mg tab ORAL SCH (22:02)
[2019-06-05] VITALS (9 sets, daily range): BP systolic 125–141; BP diastolic 66–89
--- NOTE | 2019-06-05 02:12 | NUR ---
NURSE NOTES: Received report from Manjula, RN. Patient is is bed sleeping. No signs of distress or SOB. IV is intact and running Zosyn. Bed is locked and in lowest position. Call light in reach. Will continue to monitor.
--- NOTE | 2019-06-05 02:31 | NUR ---
HAND-OFF: Report given to PACO Mclaughlin.
[2019-06-05] MEDS: NovoLOG Insulin Flexpen SUBQ SCH ×7 (06:37→21:40)
[2019-06-05] MEDS: Zosyn 3.375gm q8h **Extended infusion IVPB SCH ×4 (06:37→16:01)
--- NOTE | 2019-06-05 06:40 | General Progress Note ---
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 ICD Codes: E11.621 - Type 2 diabetes mellitus with foot ulcer; L97.502 - Non- pressure chronic ulcer of other part of unspecified foot with fat layer exposed SNOMED: 740384595, 59293951 Qualifiers: Qualified Codes: E10.621 - Type 1 diabetes mellitus with foot ulcer; L97.422 - Non-pressure chronic ulcer of left heel and midfoot with fat layer exposed Status: stable Assessment/Plan: increase Levemir to 70 units bid increase Novolog to 30 units ac tid continue NISS ac / hs Subjective Allergies: Coded Allergies: METFORMIN (Verified Allergy, Unknown, 10/09/18) Vomiting All Systems: reviewed and negative except above Subjective events noted fasting glucose elevated Item Value Date Time Bedside Blood Glucose 237 mg/dl H 06/05/19 0625 Bedside Blood Glucose 277 mg/dl H 06/04/19 2206 Bedside Blood Glucose 282 mg/dl H 06/04/19 1743 Bedside Blood Glucose 289 mg/dl H 06/04/19 1206 Bedside Blood Glucose 312 mg/dl H 06/04/19 0949 Bedside Blood Glucose 312 mg/dl H 06/04/19 0640 Objective Last 24 Hour Vital Signs Date Time Temp Pulse Resp B/P (MAP) Pulse Ox O2 Delivery O2 Flow Rate FiO2 06/04/19 21:00 Room Air 06/04/19 20:00 97.7 61 18 119/65 (83) 97 06/04/19 16:00 97.6 64 16 130/72 (91) 98 06/04/19 12:00 98.3 98 18 98/59 (72) 98 06/04/19 09:46 121/75 06/04/19 09:00 Room Air 06/04/19 08:00 97.3 69 19 121/75 (90) 100 Intake and Output 06/04/19 06/05/19 18:59 06:59 Intake Total 137.5 ml 110.0 ml Balance 137.5 ml 110.0 ml IV Total 137.5 ml 110.0 ml Laboratory Tests 06/04/19 08:20: White Blood Count 4.5L, Red Blood Count 4.58L, Hemoglobin 12.7L, Hematocrit 39.6L, Mean Corpuscular Volume 87, Mean Corpuscular Hemoglobin 27.8, Mean Corpuscular Hemoglobin Concent 32.1, Red Cell Distribution Width 12.7, Platelet Count 226, Mean Platelet Volume 5.3L, Neutrophils (%) (Auto) 66.3, Lymphocytes ( %) (Auto) 23.4, Monocytes (%) (Auto) 6.3, Eosinophils (%) (Auto) 3.3H, Basophils (%) (Auto) 0.7, Sodium Level 139, Potassium Level 4.4, Chloride Level 103, Carbon Dioxide Level 25, Anion Gap 11, Blood Urea Nitrogen 23H, Creatinine 1.7H, Estimat Glomerular Filtration Rate 42.9, Glucose Level 229H, Calcium Level 8.9, Total Bilirubin 0.3, Aspartate Amino Transf (AST/SGOT) 22, Alanine Aminotransferase (ALT/SGPT) 30, Alkaline Phosphatase 124H, Total Protein 7.2, Albumin 2.7L, Globulin 4.5, Albumin/Globulin Ratio 0.6L Height (Feet): 5 Height (Inches): 8.00 Weight (Pounds): 215 General Appearance: no apparent distress Neck: normal alignment Cardiovascular: normal rate Respiratory/Chest: lungs clear Abdomen: normal bowel sounds Pelvis: normal external exam Objective Current Medications Medications (Trade) Dose Ordered Sig/Aylin Route PRN Reason Start Time Stop Time Status Last Admin Dose Admin Acetaminophen (Tylenol) 650 mg Q4H PRN ORAL Mild Pain/Temp > 100.5 06/01/19 22:30 07/01/19 22:29 Acetaminophen/ Codeine Phosphate (Tylenol #3) 1 tab Q4H PRN ORAL PAIN 4-6 06/04/19 11:30 06/08/19 22:29 06/04/19 14:29 Atorvastatin Calcium (Lipitor) 40 mg BEDTIME ORAL 06/02/19 21:00 07/02/19 20:59 06/04/19 22:02 Bisacodyl (Dulcolax) 10 mg DAILY PRN RECTAL Constipation 06/01/19 22:30 07/01/19 22:29 Dextrose (Dextrose 50%) 25 ml Q30M PRN IV Hypoglycemia 06/01/19 22:30 07/01/19 22:29 Dextrose (Dextrose 50%) 50 ml Q30M PRN IV Hypoglycemia 06/01/19 22:30 07/01/19 22:29 Docusate Sodium (Colace) 100 mg TWICE A DAY ORAL 06/02/19 09:00 07/02/19 08:59 Escitalopram Oxalate (Lexapro) 10 mg DAILY ORAL 06/02/19 09:00 07/02/19 08:59 06/04/19 09:46 Gabapentin (Neurontin) 300 mg THREE TIMES A DAY ORAL 06/02/19 09:00 07/02/19 08:59 06/04/19 17:50 Heparin Sodium (Porcine) (Heparin 5000 units/ml) 5,000 units EVERY 12 HOURS SUBQ 06/02/19 09:00 07/02/19 08:59 06/02/19 21:17 Insulin Aspart (NovoLOG) 24 units NOVOTIAC SUBQ 06/04/19 11:50 07/02/19 06:29 06/04/19 17:42 Insulin Aspart (NovoLOG) CALL MD IF BS <60 OR >,400 BEFORE MEALS AND HS SUBQ 06/02/19 06:30 07/02/19 06:29 06/04/19 22:06 Insulin Detemir (Levemir) 64 units BID SUBQ 06/04/19 09:00 07/02/19 08:59 06/04/19 19:38 Lisinopril (Prinivil) 20 mg DAILY ORAL 06/02/19 09:00 07/02/19 08:59 06/04/19 09:46 Loperamide HCl (Imodium) 2 mg Q4H PRN ORAL Diarrhea 06/01/19 22:30 07/01/19 22:29 Magnesium Hydroxide (Mom) 30 ml DAILY PRN ORAL Constipation 06/01/19 22:30 07/01/19 22:29 Multivitamins Therapeutic (Therapeutic Multivitamin) 1 ea BID ORAL 06/02/19 09:00 07/02/19 08:59 06/04/19 17:50 Ondansetron HCl (Zofran) 4 mg Q8H PRN ORAL Nausea & Vomiting 06/01/19 22:30 07/01/19 22:29 Oxycodone/ Acetaminophen (Percocet 5-325) 1 tab Q4H PRN ORAL Severe Pain (Pain Scale 7-10) 06/01/19 22:30 06/08/19 22:29 Pantoprazole (Protonix) 40 mg DAILY ORAL 06/02/19 09:00 07/02/19 08:59 06/04/19 09:46 Piperacillin Sod/ Tazobactam Sod 3.375 gm/Sodium Chloride 110 ml @ 27.5 mls/hr EVERY 8 HOURS IVPB 06/02/19 14:00 06/07/19 13:59 06/04/19 22:02 Quetiapine Fumarate (SEROquel) 100 mg TWICE A DAY ORAL 06/02/19 09:00 07/02/19 08:59 06/04/19 17:50 Sodium Phosphate (Fleet's Sodium Phosl Enema) 133 ml DAILY PRN RECTAL Constipation 06/01/19 22:30 07/01/19 22:29 Vancomycin HCl (Vanco rx to dose) 1 ea DAILY PRN MISC Per rx protocol 06/01/19 18:00 07/01/19 17:59 Binh Borges MD Jun 05, 2019 06:40
[2019-06-05 07:22] LABS: BASOPHILS % (AUTO) 0.5 % (0.0-2.0); EOSINOPHILS % (AUTO) 3.2 % (0.0-3.0); HEMATOCRIT 40.4 % (42.0-52.0); HEMOGLOBIN 13.1 G/DL (14.2-18.0); LYMPHOCYTES % (AUTO) 26.7 % (20.0-45.0); MEAN CORPUSCULAR VOLUME 88 FL (80-99); MONOCYTES % (AUTO) 6.3 % (1.0-10.0); NEUTROPHILS % (AUTO) 63.3 % (45.0-75.0); PLATELET COUNT 236 K/UL (150-450); RED BLOOD COUNT 4.62 M/UL (4.70-6.10); RED CELL DISTRIBUTION WIDTH 12.6 % (11.6-14.8); WHITE BLOOD COUNT 4.9 K/UL (4.8-10.8)
--- NOTE | 2019-06-05 07:50 | NUR ---
NURSE NOTES: Patient NPO for procedure this morning. Patient's blood sugar was 237. Administered Novolog 4 units per sliding scale and 24 units per scheduled dose. Notified Dr Borges, and he instructed the oncoming AM nurse to recheck the blood sugar in one hour and ordered D5NS to be ran at 50 ml/hr while the patient is NPO. The order will be discontinued when the patient is no longer NPO. Previous order of Novolog scheduled for 24 units was discontinued and replaced with Novolog 30 units before the administration was saved on the system so it is not showing it was given in the eMAR. Made primary nurse, PACO Paige aware of the situation and orders to be followed.
--- NOTE | 2019-06-05 07:51 | NUR ---
HAND-OFF: Report given to PACO Paige.
[2019-06-05 07:52] LABS: ALANINE AMINOTRANSFERASE 34 U/L (12-78); ALBUMIN 2.8 G/DL (3.4-5.0); ALBUMIN/GLOBULIN RATIO 0.6 (1.0-2.7); ALKALINE PHOSPHATASE 131 U/L (46-116); ANION GAP 8 mmol/L (5-15); ASPARTATE AMINO TRANSFERASE 26 U/L (15-37); BILIRUBIN,TOTAL 0.3 MG/DL (0.2-1.0); BLOOD UREA NITROGEN 22 mg/dL (7-18); CALCIUM 8.9 MG/DL (8.5-10.1); CARBON DIOXIDE 26 MMOL/L (21-32); CHLORIDE 103 MMOL/L (98-107); CREATININE 1.4 MG/DL (0.55-1.30); POTASSIUM 4.5 MMOL/L (3.5-5.1); SODIUM 137 MMOL/L (136-145)
[2019-06-05] MEDS ORDERED: D5NS 1,000 ML IV ONE (08:15)
--- NOTE | 2019-06-05 08:19 | NUR ---
NURSE NOTES: Received pt in bed, sleeping. No s/s of distress/pain. IV 24 g on L FA, intact and patent running zosyn. PM nurse reported she administered 28 units of Novolog. Per order, D5NS will be started. And will re-check blood sugar in one hour. Pt does not show s/s of hypoglycemia as of now. Bed in the lowest, locked. Call light within reach. Will continue to monitor
[2019-06-05] MEDS: Heparin 5000 units/ml inj SUBQ SCH ×2 (09:00→21:00)
[2019-06-05] MEDS: Lisinopril 20mg tab ORAL SCH (09:00)
[2019-06-05] MEDS: Multivitamin w/Minerals tab ORAL SCH ×2 (09:00→18:33)
[2019-06-05] MEDS: Docusate 100mg cap ORAL SCH ×2 (09:00→18:00)
[2019-06-05] MEDS: Levemir Flexpen SUBQ SCH ×2 (09:00→18:35)
[2019-06-05] MEDS: Vancomycin 750mg/NS 275ml IVPB SCH ×6 (10:26→21:38)
[2019-06-05] MEDS ORDERED: Lidocaine 1% Plain 30 ml INJ ONE (11:56)
[2019-06-05] MEDS ORDERED: Bupivacaine 0.25% Inj 30ml INJ ONE (11:56)
--- NOTE | 2019-06-05 11:56 | Pre-Procedure Note/Attestation ---
Pre-Procedure Note/Attestation Complete Prior to Procedure Planned Procedure: left Procedure Narrative: bone biopsy of the L foot osteomyelitis. Indications for Procedure Pre-Operative Diagnosis: Dm foot ulcer L with underlying Osteomyelitis Attestation I attest that I discussed the nature of the procedure; its benefits; risks and complications; and alternatives (and the risks and benefits of such alternatives ), prior to the procedure, with the patient (or the patient's legal phone representative). I attest that, if there was a reasonable possibility of needing a blood transfusion, the patient (or the patient's legal phone representative) was given the [facility] standardized written summary, pursuant to the Kenneth Merle Blood Safety Act ([place] Health and Safety Code # 1645, as amended). I attest that I re-evaluated the patient just prior to the surgery and that there has been no change in the patient's H&P, except as documented below: Omar Bright DPM Jun 05, 2019 11:56
[2019-06-05] MEDS ORDERED: LR 1000ml ONE (12:00)
[2019-06-05] MEDS ORDERED: NS Irrig 1000ml ONE (12:00)
[2019-06-05] MEDS ORDERED: Sterile Water Irrig 1000ml IRRIG ONE (12:00)
[2019-06-05] MEDS ORDERED: Lidocaine 1% MPF 10mg/ml 5ml ONE (12:11)
[2019-06-05] MEDS ORDERED: Propofol 200mg/20ml IV ONE (12:11)
[2019-06-05] MEDS ORDERED: Midazolam 2mg/2ml Inj ONE (12:12)
--- NOTE | 2019-06-05 12:35 | Immediate Post-Op Evaluation ---
Immediate Post-Op Evalulation Immediate Post-Op Evalulation Procedure: Bone Biopsy L Foot Date of Evaluation: Jun 05, 2019 Time of Evaluation: 13:17 IV Fluids: 200 LR Blood Products: 0 Estimated Blood Loss: 2 Urinary Output: 0 Blood Pressure Systolic: 126 Blood Pressure Diastolic: 76 Pulse Rate: 59 Respiratory Rate: 16 O2 Sat by Pulse Oximetry: 100 Temperature (Fahrenheit): 97.7 Pain Score (1-10): 2 Nausea: No Vomiting: No Complications 0 Patient Status: awake, reacts, patent, none Hydration Status: adequate Dru Gram Ancef IV Given Within 1 Hr of Incision: Yes Time Given: 12:26 Amadeo Encinas MD Jun 05, 2019 12:35
--- NOTE | 2019-06-05 12:49 | Surgery Progress Note ---
Surgery Progress Note Subjective Additional Comments no acute events comfortable stable Objective Last 24 Hour Vital Signs Date Time Temp Pulse Resp B/P (MAP) Pulse Ox O2 Delivery O2 Flow Rate FiO2 06/05/19 09:00 Room Air 06/05/19 09:00 125/69 06/05/19 08:00 97.3 64 18 125/69 (87) 94 06/04/19 21:00 Room Air 06/04/19 20:00 97.7 61 18 119/65 (83) 97 06/04/19 16:00 97.6 64 16 130/72 (91) 98 I&O Intake and Output 06/04/19 06/05/19 19:00 07:00 Intake Total 137.5 ml 110.0 ml Balance 137.5 ml 110.0 ml Intake Oral 0 ml IV Total 137.5 ml 110.0 ml Dressing: saturated Wound: clean Cardiovascular: RSR Respiratory: clear Abdomen: soft, present bowel sounds, non-distended Extremities: no cyanosis, other Laboratory Tests Test 06/05/19 06:23 White Blood Count 4.9 K/UL (4.8-10.8) Red Blood Count 4.62 M/UL (4.70-6.10) L Hemoglobin 13.1 G/DL (14.2-18.0) L Hematocrit 40.4 % (42.0-52.0) L Mean Corpuscular Volume 88 FL (80-99) Mean Corpuscular Hemoglobin 28.3 PG (27.0-31.0) Mean Corpuscular Hemoglobin Concent 32.4 G/DL (32.0-36.0) Red Cell Distribution Width 12.6 % (11.6-14.8) Platelet Count 236 K/UL (150-450) Mean Platelet Volume 5.4 FL (6.5-10.1) L Neutrophils (%) (Auto) 63.3 % (45.0-75.0) Lymphocytes (%) (Auto) 26.7 % (20.0-45.0) Monocytes (%) (Auto) 6.3 % (1.0-10.0) Eosinophils (%) (Auto) 3.2 % (0.0-3.0) H Basophils (%) (Auto) 0.5 % (0.0-2.0) Sodium Level 137 MMOL/L (136-145) Potassium Level 4.5 MMOL/L (3.5-5.1) Chloride Level 103 MMOL/L (98-107) Carbon Dioxide Level 26 MMOL/L (21-32) Anion Gap 8 mmol/L (5-15) Blood Urea Nitrogen 22 mg/dL (7-18) H Creatinine 1.4 MG/DL (0.55-1.30) H Estimat Glomerular Filtration Rate 53.6 mL/min (>60) Glucose Level 257 MG/DL (74-106) H Calcium Level 8.9 MG/DL (8.5-10.1) Total Bilirubin 0.3 MG/DL (0.2-1.0) Aspartate Amino Transf (AST/SGOT) 26 U/L (15-37) Alanine Aminotransferase (ALT/SGPT) 34 U/L (12-78) Alkaline Phosphatase 131 U/L (46-116) H Total Protein 7.3 G/DL (6.4-8.2) Albumin 2.8 G/DL (3.4-5.0) L Globulin 4.5 g/dL Albumin/Globulin Ratio 0.6 (1.0-2.7) L Random Vancomycin Level 5.8 ug/mL Plan Problems: (1) Cellulitis Assessment & Plan: Patient with presumed cellulitis of the lower extremity. Right lower extremity with edema and potential cellulitis patient has had history of this in the past. No abscess noted. No acute surgical intervention necessary. IV antibiotics as per infectious disease. Keep lower extremities elevated while in bed with pillows. 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 Had amputation of the lateral ray 4 years ago and states unsure when he developed ulcer. States that he receives wound care at his nursing facility. Was unsure if there is an opening. On examination patient has an open ulcer with it is down to the fat layer and unsure if any deeper. There is a foul odor but no significant active drainage. No abscess identified. Plain films noted. Minimal surrounding cellulitis. Edema of the foot. Impression: Increased STIR and decreased T1 signal involving the base of the fourth metatarsal. There is also periosteal thickening. Findings are suspicious for acute on chronic osteomyelitis. There is also evidence of phlegmon versus abscess surrounding the base of the fourth metatarsal, and evidence of communication of the surrounding inflammation with the plantar ulcer. Extensive edema elsewhere, likely cellulitis given stated clinical history of infection but also possibly could be due to edema of vasogenic origin Extensive abnormality of the bones of the midfoot is described in detail on separate ankle/hindfoot MRI report, likely reflects Charcot-type changes. 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 Susceptibility artifact surrounding the stump is of uncertain etiology/significance no acute surgical intervention IV ABX as per ID debridement by podiatry cont dressings pending path Will follow with recs thank you (3) Renal insufficiency (4) Hyperkalemia (5) Anxiety disorder (6) Diabetic nephropathy (7) Pansinusitis (8) Renal failure (ARF), acute on chronic (9) MDD (major depressive disorder), recurrent episode, moderate (10) Gambling disorder, episodic, moderate Melquiades Rush Jun 05, 2019 12:49
--- NOTE | 2019-06-05 12:51 | Post Operative Note (Narrative ---
Progress Note Post-Op Note diagnosis of L foot osteomyelitis procedure of L foot bone biopsy minimal blood loss general anesthesia with local Patient tolerated the surgery and anesthesia well he was transferred to recovery with vss intact. patient to be transferred to floor when stable with orders to keep dressing dry and intact. patient to resume all preop orders. Omar Bright DPM Jun 05, 2019 12:51
--- NOTE | 2019-06-05 13:45 | NUR ---
NURSE NOTES: Patient came back from surgery. Patient in stable condition and blood sugar at 166. ordered to resume all hospital meds and diet, keep the dressing intact and dry. Dressing will be changed by the dr. Will continue to monitor
--- NOTE | 2019-06-05 14:42 | Infectious Diseases Prog Note ---
Assessment/Plan Problems: (1) Foot ulcer due to secondary DM Assessment & Plan: suspect chronic with underlying acute on chronic osteomyelitis of the fourth metatarsal bone as per MRI of the foot . wound culture grew only E coli, most likely colonization , S/P surgical debridement by property preservation specialist , no tissue was sent for culture from the debridement . S/P bone biopsy fo the foot for culture today to direct antibiotics treatment and plan of care due to the chronicity of the bone infection in his left foot . continue vancomycin and zosyn empirically for now , pending tissue culture . will need life long oral antibiotics for suppression after done with IV , for his chronic osteomyelitis . D/W primary and property preservation specialist . (2) Cellulitis of right foot Assessment & Plan: already on vancomycin and zosyn . keep leg elevated all the time while in bed. venous Doppler to rule out DVT (3) Poorly controlled diabetes mellitus Assessment & Plan: recommend tight glycemic control to keep blood glucose between 100-140 (4) Renal failure (ARF), acute on chronic Assessment & Plan: suspect dehydration, continue renally dosed medications and hydration as needed, close monitor of renal function and UOP Subjective Constitutional: Reports: no symptoms HEENT: Reports: no symptoms Respiratory: Reports: no symptoms Breasts: Reports: no symptoms Cardiovascular: Reports: no symptoms Gastrointestinal/Abdominal: Reports: no symptoms Genitourinary: Reports: no symptoms Neurologic: Reports: no symptoms Psychiatric: Reports: no symptoms Skin: Reports: no symptoms Endocrine: Reports: no symptoms Hematologic: Reports: no symptoms Musculoskeletal: Reports: no symptoms Allergies: Coded Allergies: METFORMIN (Verified Allergy, Unknown, 10/09/18) Vomiting Subjective left foot discomfort Objective Vital Signs Last 24 Hour Vital Signs Date Time Temp Pulse Resp B/P (MAP) Pulse Ox O2 Delivery O2 Flow Rate FiO2 06/05/19 13:35 97.6 57 19 136/81 97 Room Air 06/05/19 13:30 56 19 139/66 98 Room Air 06/05/19 13:20 58 18 129/76 98 Room Air 06/05/19 13:15 55 16 134/72 100 Simple Mask 6 06/05/19 13:10 58 14 129/76 100 Simple Mask 6 06/05/19 13:06 97.7 59 16 126/76 100 Simple Mask 6 06/05/19 13:05 59 16 100 06/05/19 09:00 Room Air 06/05/19 09:00 125/69 06/05/19 08:00 97.3 64 18 125/69 (87) 94 06/04/19 21:00 Room Air 06/04/19 20:00 97.7 61 18 119/65 (83) 97 06/04/19 16:00 97.6 64 16 130/72 (91) 98 Height (Feet): 5 Height (Inches): 8.00 Weight (Pounds): 212 General Appearance: WD/WN, no acute distress HEENT: normocephalic, atraumatic, anicteric, mucous membranes moist, PERRL Respiratory/Chest: chest wall non-tender, lungs clear, normal breath sounds, no respiratory distress, no accessory muscle use Cardiovascular: normal peripheral pulses, normal rate, regular rhythm, no gallop/murmur, no JVD Abdomen: normal bowel sounds, soft, non tender, no organomegaly, non distended , no mass, no scars Extremities: no cyanosis, no clubbing Skin: no rash, no lesions, ulcers - left foot open wound at the sole covered with dressings Neurologic/Psychiatric: alert, responsive Lymphatic: no neck adenopathy, no groin adenopathy Musculoskeletal: normal muscle bulk, no effusion Laboratory Tests Test 06/05/19 06:23 White Blood Count 4.9 K/UL (4.8-10.8) Red Blood Count 4.62 M/UL (4.70-6.10) L Hemoglobin 13.1 G/DL (14.2-18.0) L Hematocrit 40.4 % (42.0-52.0) L Mean Corpuscular Volume 88 FL (80-99) Mean Corpuscular Hemoglobin 28.3 PG (27.0-31.0) Mean Corpuscular Hemoglobin Concent 32.4 G/DL (32.0-36.0) Red Cell Distribution Width 12.6 % (11.6-14.8) Platelet Count 236 K/UL (150-450) Mean Platelet Volume 5.4 FL (6.5-10.1) L Neutrophils (%) (Auto) 63.3 % (45.0-75.0) Lymphocytes (%) (Auto) 26.7 % (20.0-45.0) Monocytes (%) (Auto) 6.3 % (1.0-10.0) Eosinophils (%) (Auto) 3.2 % (0.0-3.0) H Basophils (%) (Auto) 0.5 % (0.0-2.0) Sodium Level 137 MMOL/L (136-145) Potassium Level 4.5 MMOL/L (3.5-5.1) Chloride Level 103 MMOL/L (98-107) Carbon Dioxide Level 26 MMOL/L (21-32) Anion Gap 8 mmol/L (5-15) Blood Urea Nitrogen 22 mg/dL (7-18) H Creatinine 1.4 MG/DL (0.55-1.30) H Estimat Glomerular Filtration Rate 53.6 mL/min (>60) Glucose Level 257 MG/DL (74-106) H Calcium Level 8.9 MG/DL (8.5-10.1) Total Bilirubin 0.3 MG/DL (0.2-1.0) Aspartate Amino Transf (AST/SGOT) 26 U/L (15-37) Alanine Aminotransferase (ALT/SGPT) 34 U/L (12-78) Alkaline Phosphatase 131 U/L (46-116) H Total Protein 7.3 G/DL (6.4-8.2) Albumin 2.8 G/DL (3.4-5.0) L Globulin 4.5 g/dL Albumin/Globulin Ratio 0.6 (1.0-2.7) L Random Vancomycin Level 5.8 ug/mL Current Medications Medications (Trade) Dose Ordered Sig/Aylin Route PRN Reason Start Time Stop Time Status Last Admin Dose Admin Acetaminophen (Tylenol) 650 mg Q4H PRN ORAL Mild Pain/Temp > 100.5 06/01/19 22:30 07/01/19 22:29 Acetaminophen/ Codeine Phosphate (Tylenol #3) 1 tab Q4H PRN ORAL PAIN 4-6 06/04/19 11:30 06/08/19 22:29 06/04/19 14:29 Atorvastatin Calcium (Lipitor) 40 mg BEDTIME ORAL 06/02/19 21:00 07/02/19 20:59 06/04/19 22:02 Bisacodyl (Dulcolax) 10 mg DAILY PRN RECTAL Constipation 06/01/19 22:30 07/01/19 22:29 Dextrose (Dextrose 50%) 25 ml Q30M PRN IV Hypoglycemia 06/01/19 22:30 07/01/19 22:29 Dextrose (Dextrose 50%) 50 ml Q30M PRN IV Hypoglycemia 06/01/19 22:30 07/01/19 22:29 Dextrose/Sodium Chloride 1,000 ml @ 50 mls/hr Q20H ONCE IV 06/05/19 08:15 06/06/19 04:14 06/05/19 08:39 Docusate Sodium (Colace) 100 mg TWICE A DAY ORAL 06/02/19 09:00 07/02/19 08:59 Escitalopram Oxalate (Lexapro) 10 mg DAILY ORAL 06/02/19 09:00 07/02/19 08:59 06/04/19 09:46 Gabapentin (Neurontin) 300 mg THREE TIMES A DAY ORAL 06/02/19 09:00 07/02/19 08:59 06/04/19 17:50 Heparin Sodium (Porcine) (Heparin 5000 units/ml) 5,000 units EVERY 12 HOURS SUBQ 06/02/19 09:00 07/02/19 08:59 06/02/19 21:17 Insulin Aspart (NovoLOG) 30 units NOVOTIAC SUBQ 06/05/19 06:45 07/02/19 06:29 Insulin Aspart (NovoLOG) CALL MD IF BS <60 OR >,400 BEFORE MEALS AND HS SUBQ 06/02/19 06:30 07/02/19 06:29 06/05/19 06:37 Insulin Detemir (Levemir) 70 units BID SUBQ 06/05/19 09:00 07/02/19 08:59 Lisinopril (Prinivil) 20 mg DAILY ORAL 06/02/19 09:00 07/02/19 08:59 06/04/19 09:46 Loperamide HCl (Imodium) 2 mg Q4H PRN ORAL Diarrhea 06/01/19 22:30 07/01/19 22:29 Magnesium Hydroxide (Mom) 30 ml DAILY PRN ORAL Constipation 06/01/19 22:30 07/01/19 22:29 Multivitamins Therapeutic (Therapeutic Multivitamin) 1 ea BID ORAL 06/02/19 09:00 07/02/19 08:59 06/04/19 17:50 Ondansetron HCl (Zofran) 4 mg Q8H PRN ORAL Nausea & Vomiting 06/01/19 22:30 07/01/19 22:29 Oxycodone/ Acetaminophen (Percocet 5-325) 1 tab Q4H PRN ORAL Severe Pain (Pain Scale 7-10) 06/01/19 22:30 06/08/19 22:29 Pantoprazole (Protonix) 40 mg DAILY ORAL 06/02/19 09:00 07/02/19 08:59 06/04/19 09:46 Piperacillin Sod/ Tazobactam Sod 3.375 gm/Sodium Chloride 110 ml @ 27.5 mls/hr EVERY 8 HOURS IVPB 06/02/19 14:00 06/07/19 13:59 06/05/19 06:37 Quetiapine Fumarate (SEROquel) 100 mg TWICE A DAY ORAL 06/02/19 09:00 07/02/19 08:59 06/04/19 17:50 Sodium Phosphate (Fleet's Sodium Phosl Enema) 133 ml DAILY PRN RECTAL Constipation 06/01/19 22:30 07/01/19 22:29 Vancomycin HCl (Vanco rx to dose) 1 ea DAILY PRN MISC Per rx protocol 06/01/19 18:00 07/01/19 17:59 Vancomycin HCl 750 mg/Sodium Chloride 275 ml @ 183.333 mls/hr Q12HR IVPB 06/05/19 09:00 06/10/19 08:59 06/05/19 13:48 Kwasi Martinez M.D. Jun 05, 2019 14:42
--- NOTE | 2019-06-05 15:21 | General Progress Note ---
Assessment/Plan Status: stable Assessment/Plan: S: I am ok O: seems comfortable, pain is well managed. PHYSICAL EXAMINATION: HEAD AND NECK: multiple molars with plaques, Atraumatic and normocephalic. CHEST: Clear to auscultation. No wheezing. No crackles. HEART: S1 and S2. Regular rate and rhythm. No S3. No S4. ABDOMEN: Soft. No organomegaly. MUSCULOSKELETAL: Positive for Charcot's foot. Positive for stump of the prior tarsometatarsal resections. open wound in plantar aspect of left foot NEUROLOGIC: The patient is awake, alert, and oriented x3. PSYCHIATRIC: Mood and affect is elated. Meds: reviewed and reconciled A/P: 1- Acute OM of left IV MT Bone 2- DM- uncontrolled 3. Non compliance with medications 3- Charcot Foot 4- HTN 5- Psych 6. Chronic KD Plan: Case D/w Podiatry and ID Status post bone biopsy procedure per podiatry. Pending results of cultures, patient needs 6-8 weeks of IV abx treatment Subjective Allergies: Coded Allergies: METFORMIN (Verified Allergy, Unknown, 10/09/18) Vomiting Objective Last 24 Hour Vital Signs Date Time Temp Pulse Resp B/P (MAP) Pulse Ox O2 Delivery O2 Flow Rate FiO2 06/05/19 13:35 97.6 57 19 136/81 97 Room Air 06/05/19 13:30 56 19 139/66 98 Room Air 06/05/19 13:20 58 18 129/76 98 Room Air 06/05/19 13:15 55 16 134/72 100 Simple Mask 6 06/05/19 13:10 58 14 129/76 100 Simple Mask 6 06/05/19 13:06 97.7 59 16 126/76 100 Simple Mask 6 06/05/19 13:05 59 16 100 06/05/19 09:00 Room Air 06/05/19 09:00 125/69 06/05/19 08:00 97.3 64 18 125/69 (87) 94 06/04/19 21:00 Room Air 06/04/19 20:00 97.7 61 18 119/65 (83) 97 06/04/19 16:00 97.6 64 16 130/72 (91) 98 Intake and Output 06/04/19 06/05/19 19:00 07:00 Intake Total 137.5 ml 110.0 ml Balance 137.5 ml 110.0 ml Intake Oral 0 ml IV Total 137.5 ml 110.0 ml Laboratory Tests 06/05/19 06:23: White Blood Count 4.9, Red Blood Count 4.62L, Hemoglobin 13.1L, Hematocrit 40.4L , Mean Corpuscular Volume 88, Mean Corpuscular Hemoglobin 28.3, Mean Corpuscular Hemoglobin Concent 32.4, Red Cell Distribution Width 12.6, Platelet Count 236, Mean Platelet Volume 5.4L, Neutrophils (%) (Auto) 63.3, Lymphocytes ( %) (Auto) 26.7, Monocytes (%) (Auto) 6.3, Eosinophils (%) (Auto) 3.2H, Basophils (%) (Auto) 0.5, Sodium Level 137, Potassium Level 4.5, Chloride Level 103, Carbon Dioxide Level 26, Anion Gap 8, Blood Urea Nitrogen 22H, Creatinine 1.4H, Estimat Glomerular Filtration Rate 53.6, Glucose Level 257H, Calcium Level 8.9, Total Bilirubin 0.3, Aspartate Amino Transf (AST/SGOT) 26, Alanine Aminotransferase (ALT/SGPT) 34, Alkaline Phosphatase 131H, Total Protein 7.3, Albumin 2.8L, Globulin 4.5, Albumin/Globulin Ratio 0.6L, Random Vancomycin Level 5.8 Height (Feet): 5 Height (Inches): 8.00 Weight (Pounds): 212 Dexter Haas MD Jun 05, 2019 15:21
--- NOTE | 2019-06-05 15:39 | NUR ---
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
--- NOTE | 2019-06-05 19:25 | NUR ---
HAND-OFF: Report given to PACO Yang.
--- NOTE | 2019-06-05 20:20 | NUR ---
NURSE NOTES: PATIENT IN, AWAKE, ALERT, VERBALLY RESPONSIVE. NO COMPLAINTS OF PAIN AT THIS TIME. NO S/S DISTRESS NOTED. IV IN PLACE, PATENT. LEFT FOOT DRESS DRY AND INTACT. BED IN LOWEST POSITION, CALL LIGHT WITHIN REACH. WILL CONTINUE TO MONITOR.
[2019-06-05] MEDS: Atorvastatin 20mg tab ORAL SCH (21:38)
[2019-06-06] MEDS: Zosyn 3.375gm q8h **Extended infusion IVPB SCH ×8 (00:04→22:00)
[2019-06-06 00:09] VITALS: BP 135/78
--- NOTE | 2019-06-06 04:00 | NUR ---
NURSE NOTES: NEW IV ACCESS LEFT UPPER ARM 24 GAUGE, PATENT.
[2019-06-06 04:35] VITALS: BP 137/73
[2019-06-06 06:31] LABS: BASOPHILS % (AUTO) 0.7 % (0.0-2.0); EOSINOPHILS % (AUTO) 3.3 % (0.0-3.0); HEMATOCRIT 38.1 % (42.0-52.0); HEMOGLOBIN 12.2 G/DL (14.2-18.0); LYMPHOCYTES % (AUTO) 23.5 % (20.0-45.0); MEAN CORPUSCULAR VOLUME 88 FL (80-99); MONOCYTES % (AUTO) 5.8 % (1.0-10.0); NEUTROPHILS % (AUTO) 66.7 % (45.0-75.0); PLATELET COUNT 234 K/UL (150-450); RED BLOOD COUNT 4.34 M/UL (4.70-6.10); RED CELL DISTRIBUTION WIDTH 12.7 % (11.6-14.8); WHITE BLOOD COUNT 5.4 K/UL (4.8-10.8)
[2019-06-06 06:52] LABS: ALANINE AMINOTRANSFERASE 33 U/L (12-78); ALBUMIN 2.7 G/DL (3.4-5.0); ALBUMIN/GLOBULIN RATIO 0.7 (1.0-2.7); ALKALINE PHOSPHATASE 109 U/L (46-116); ANION GAP 6 mmol/L (5-15); ASPARTATE AMINO TRANSFERASE 21 U/L (15-37); BILIRUBIN,TOTAL 0.2 MG/DL (0.2-1.0); BLOOD UREA NITROGEN 21 mg/dL (7-18); CALCIUM 8.7 MG/DL (8.5-10.1); CARBON DIOXIDE 30 MMOL/L (21-32); CHLORIDE 102 MMOL/L (98-107); CREATININE 1.7 MG/DL (0.55-1.30); POTASSIUM 4.6 MMOL/L (3.5-5.1); SODIUM 137 MMOL/L (136-145)
[2019-06-06] MEDS: NovoLOG Insulin Flexpen SUBQ SCH ×7 (07:08→21:44)
--- NOTE | 2019-06-06 07:25 | NUR ---
HAND-OFF: Report given to FLORENCIA MONTES RN.
--- NOTE | 2019-06-06 07:30 | NUR ---
HAND-OFF: Report given to PACO Lobato. Addendum: 06/06/19 at 2020 by ALBERTA MONTES RN wrong time
[2019-06-06 08:00] VITALS: BP 148/84
--- NOTE | 2019-06-06 08:00 | NUR ---
NURSE NOTES: Received pt in bed, sleeping. No s/s of distress/pain. IV on L UA 24g intact and patent, running zosyn. Bed in the lowest, locked. Call light within reach. Will continue to monitor
[2019-06-06] MEDS: Lisinopril 20mg tab ORAL SCH (08:53)
[2019-06-06] MEDS: Multivitamin w/Minerals tab ORAL SCH ×2 (08:53→18:15)
[2019-06-06] MEDS: Heparin 5000 units/ml inj SUBQ SCH ×2 (09:00→21:00)
[2019-06-06] MEDS: Docusate 100mg cap ORAL SCH ×2 (09:00→18:00)
[2019-06-06] MEDS: Levemir Flexpen SUBQ SCH (09:10)
[2019-06-06] MEDS ORDERED: NOVOLOG100 UNITS1 SUBQ (11:22)
[2019-06-06] MEDS ORDERED: LEVEMIR FL100 UNIT/1 SUBQ (11:22)
[2019-06-06] MEDS: Vancomycin 750mg/NS 275ml IVPB SCH ×4 (11:37→21:26)
[2019-06-06 12:00] VITALS: BP 159/84
--- NOTE | 2019-06-06 12:48 | Surgery Progress Note ---
Surgery Progress Note Subjective Additional Comments Patient seen and examined at bedside. Had left foot bone biopsy to evaluate for osteomyelitis by podiatry yesterday. States he is doing well today with minimal pain. Dressings are intact and he is otherwise comfortable. Patient has lots of questions and concerns for limb salvage which I attempted to add to the best of my knowledge at bedside today. Objective Last 24 Hour Vital Signs Date Time Temp Pulse Resp B/P (MAP) Pulse Ox O2 Delivery O2 Flow Rate FiO2 06/06/19 12:00 98.5 57 18 159/84 (109) 97 06/06/19 09:00 Room Air 06/06/19 08:53 146/84 06/06/19 08:00 96.7 63 18 148/84 (105) 96 06/06/19 04:35 96.9 58 18 137/73 (94) 96 06/06/19 00:09 98.0 67 18 135/78 (97) 97 06/05/19 23:10 Room Air 06/05/19 20:00 98.8 70 18 135/72 (93) 96 06/05/19 19:51 97.2 06/05/19 16:00 97.2 72 18 141/89 (106) 96 72 06/05/19 13:35 97.6 57 19 136/81 97 Room Air 06/05/19 13:30 56 19 139/66 98 Room Air 06/05/19 13:20 58 18 129/76 98 Room Air 06/05/19 13:15 55 16 134/72 100 Simple Mask 6 06/05/19 13:10 58 14 129/76 100 Simple Mask 6 06/05/19 13:06 97.7 59 16 126/76 100 Simple Mask 6 06/05/19 13:05 59 16 100 I&O Intake and Output 06/05/19 06/06/19 19:00 07:00 Intake Total 622.5 ml 385.000 ml Output Total 5 ml Balance 617.5 ml 385.000 ml Intake Oral 240 ml IV Total 382.5 ml 385.000 ml Output Estimated Blood Loss 5 ml # Voids 1 Dressing: dry Wound: clean Cardiovascular: RSR Respiratory: clear Abdomen: soft, present bowel sounds, non-distended Extremities: no cyanosis, other Laboratory Tests Test 06/06/19 05:25 White Blood Count 5.4 K/UL (4.8-10.8) Red Blood Count 4.34 M/UL (4.70-6.10) L Hemoglobin 12.2 G/DL (14.2-18.0) L Hematocrit 38.1 % (42.0-52.0) L Mean Corpuscular Volume 88 FL (80-99) Mean Corpuscular Hemoglobin 28.1 PG (27.0-31.0) Mean Corpuscular Hemoglobin Concent 32.0 G/DL (32.0-36.0) Red Cell Distribution Width 12.7 % (11.6-14.8) Platelet Count 234 K/UL (150-450) Mean Platelet Volume 5.7 FL (6.5-10.1) L Neutrophils (%) (Auto) 66.7 % (45.0-75.0) Lymphocytes (%) (Auto) 23.5 % (20.0-45.0) Monocytes (%) (Auto) 5.8 % (1.0-10.0) Eosinophils (%) (Auto) 3.3 % (0.0-3.0) H Basophils (%) (Auto) 0.7 % (0.0-2.0) Sodium Level 137 MMOL/L (136-145) Potassium Level 4.6 MMOL/L (3.5-5.1) Chloride Level 102 MMOL/L (98-107) Carbon Dioxide Level 30 MMOL/L (21-32) Anion Gap 6 mmol/L (5-15) Blood Urea Nitrogen 21 mg/dL (7-18) H Creatinine 1.7 MG/DL (0.55-1.30) H Estimat Glomerular Filtration Rate 42.9 mL/min (>60) Glucose Level 302 MG/DL (74-106) H Calcium Level 8.7 MG/DL (8.5-10.1) Total Bilirubin 0.2 MG/DL (0.2-1.0) Aspartate Amino Transf (AST/SGOT) 21 U/L (15-37) Alanine Aminotransferase (ALT/SGPT) 33 U/L (12-78) Alkaline Phosphatase 109 U/L (46-116) Total Protein 6.4 G/DL (6.4-8.2) Albumin 2.7 G/DL (3.4-5.0) L Globulin 3.7 g/dL Albumin/Globulin Ratio 0.7 (1.0-2.7) L Plan Problems: (1) Cellulitis Assessment & Plan: Patient with presumed cellulitis of the lower extremity. Right lower extremity with edema and potential cellulitis patient has had history of this in the past. No abscess noted. No acute surgical intervention necessary. IV antibiotics as per infectious disease. Keep lower extremities elevated while in bed with pillows. Status post bone biopsy to evaluate for osteomyelitis. 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 Had amputation of the lateral ray 4 years ago and states unsure when he developed ulcer. States that he receives wound care at his nursing facility. Was unsure if there is an opening. On examination patient has an open ulcer with it is down to the fat layer and unsure if any deeper. There is a foul odor but no significant active drainage. No abscess identified. Plain films noted. Minimal surrounding cellulitis. Edema of the foot. Impression: Increased STIR and decreased T1 signal involving the base of the fourth metatarsal. There is also periosteal thickening. Findings are suspicious for acute on chronic osteomyelitis. There is also evidence of phlegmon versus abscess surrounding the base of the fourth metatarsal, and evidence of communication of the surrounding inflammation with the plantar ulcer. Extensive edema elsewhere, likely cellulitis given stated clinical history of infection but also possibly could be due to edema of vasogenic origin Extensive abnormality of the bones of the midfoot is described in detail on separate ankle/hindfoot MRI report, likely reflects Charcot-type changes. 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 Susceptibility artifact surrounding the stump is of uncertain etiology/significance no acute surgical intervention IV ABX as per ID debridement by podiatry Bone biopsy results pending cont dressings pending path Will follow with recs thank you (3) Renal insufficiency (4) Hyperkalemia (5) Anxiety disorder (6) Diabetic nephropathy (7) Pansinusitis (8) Renal failure (ARF), acute on chronic (9) MDD (major depressive disorder), recurrent episode, moderate (10) Gambling disorder, episodic, moderate Melquiades Ruhs Jun 06, 2019 12:48
--- NOTE | 2019-06-06 14:26 | 48 Hour Post Anesthesia Eval ---
Post Anesthesia Evaluation Procedure: Bone Biopsy L Foot Date of Evaluation: Jun 06, 2019 Time of Evaluation: 14:25 Blood Pressure Systolic: 156 0: 78 Pulse Rate: 74 Respiratory Rate: 22 Temperature (Fahrenheit): 97.6 O2 Sat by Pulse Oximetry: 98 Airway: patent Nausea: No Vomiting: No Pain Intensity: 3 Hydration Status: adequate Cardiopulmonary Status: stable Mental Status/LOC: patient returned to baseline Follow-up Care/Observations: n/a Post-Anesthesia Complications: none Follow-up care needed: N/A Félix Caballero MD Jun 06, 2019 14:26
--- NOTE | 2019-06-06 14:31 | NUR ---
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 98.5 HR 57 RR 18 B/P 159/84 BUN 21 CR 1.7 IS: VANCO IV ZOSYN IV PROTONIX MED/SURG STATUS
--- NOTE | 2019-06-06 15:59 | Infectious Diseases Prog Note ---
Assessment/Plan Problems: (1) Foot ulcer due to secondary DM Assessment & Plan: suspect chronic with underlying acute on chronic osteomyelitis of the fourth metatarsal bone as per MRI of the foot . wound culture grew only E coli, most likely colonization , S/P surgical debridement by interactive multimedia designer , no tissue was sent for culture from the debridement . S/P bone biopsy of the foot for culture on 06/05 to direct antibiotics treatment and plan of care due to the chronicity of the bone infection in his left foot . continue vancomycin and zosyn empirically for now , pending tissue culture . will need life long oral antibiotics for suppression after done with IV , for his chronic osteomyelitis . D/W primary and interactive multimedia designer . (2) Cellulitis of right foot Assessment & Plan: already on vancomycin and zosyn . keep leg elevated all the time while in bed. venous Doppler to rule out DVT (3) Poorly controlled diabetes mellitus Assessment & Plan: recommend tight glycemic control to keep blood glucose between 100-140 (4) Renal failure (ARF), acute on chronic Assessment & Plan: suspect dehydration, continue renally dosed medications and hydration as needed, close monitor of renal function and UOP Subjective Constitutional: Reports: no symptoms HEENT: Reports: no symptoms Respiratory: Reports: no symptoms Breasts: Reports: no symptoms Cardiovascular: Reports: no symptoms Gastrointestinal/Abdominal: Reports: no symptoms Genitourinary: Reports: no symptoms Neurologic: Reports: weakness Psychiatric: Reports: no symptoms Skin: Reports: ulcer Endocrine: Reports: no symptoms Hematologic: Reports: no symptoms Musculoskeletal: Reports: pain Allergies: Coded Allergies: METFORMIN (Verified Allergy, Unknown, 10/09/18) Vomiting Subjective left foot discomfort Objective Vital Signs Last 24 Hour Vital Signs Date Time Temp Pulse Resp B/P (MAP) Pulse Ox O2 Delivery O2 Flow Rate FiO2 06/06/19 14:26 74 22 98 06/06/19 12:00 98.5 57 18 159/84 (109) 97 06/06/19 09:00 Room Air 06/06/19 08:53 146/84 06/06/19 08:00 96.7 63 18 148/84 (105) 96 06/06/19 04:35 96.9 58 18 137/73 (94) 96 06/06/19 00:09 98.0 67 18 135/78 (97) 97 06/05/19 23:10 Room Air 06/05/19 20:00 98.8 70 18 135/72 (93) 96 06/05/19 19:51 97.2 06/05/19 16:00 97.2 72 18 141/89 (106) 96 72 Height (Feet): 5 Height (Inches): 8.00 Weight (Pounds): 212 General Appearance: WD/WN, no acute distress HEENT: normocephalic, atraumatic, anicteric, mucous membranes moist, PERRL Respiratory/Chest: chest wall non-tender, lungs clear, normal breath sounds, no respiratory distress, no accessory muscle use Cardiovascular: normal peripheral pulses, normal rate, regular rhythm, no gallop/murmur, no JVD Abdomen: normal bowel sounds, soft, non tender, no organomegaly, non distended , no mass, no scars Genitourinary: normal external genitalia Extremities: no cyanosis, no clubbing Skin: no rash, no lesions, ulcers Neurologic/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, no motor/sensory deficits, alert, oriented x 3, responsive Lymphatic: no neck adenopathy, no groin adenopathy Musculoskeletal: no effusion, atrophy Laboratory Tests Test 06/06/19 05:25 White Blood Count 5.4 K/UL (4.8-10.8) Red Blood Count 4.34 M/UL (4.70-6.10) L Hemoglobin 12.2 G/DL (14.2-18.0) L Hematocrit 38.1 % (42.0-52.0) L Mean Corpuscular Volume 88 FL (80-99) Mean Corpuscular Hemoglobin 28.1 PG (27.0-31.0) Mean Corpuscular Hemoglobin Concent 32.0 G/DL (32.0-36.0) Red Cell Distribution Width 12.7 % (11.6-14.8) Platelet Count 234 K/UL (150-450) Mean Platelet Volume 5.7 FL (6.5-10.1) L Neutrophils (%) (Auto) 66.7 % (45.0-75.0) Lymphocytes (%) (Auto) 23.5 % (20.0-45.0) Monocytes (%) (Auto) 5.8 % (1.0-10.0) Eosinophils (%) (Auto) 3.3 % (0.0-3.0) H Basophils (%) (Auto) 0.7 % (0.0-2.0) Sodium Level 137 MMOL/L (136-145) Potassium Level 4.6 MMOL/L (3.5-5.1) Chloride Level 102 MMOL/L (98-107) Carbon Dioxide Level 30 MMOL/L (21-32) Anion Gap 6 mmol/L (5-15) Blood Urea Nitrogen 21 mg/dL (7-18) H Creatinine 1.7 MG/DL (0.55-1.30) H Estimat Glomerular Filtration Rate 42.9 mL/min (>60) Glucose Level 302 MG/DL (74-106) H Calcium Level 8.7 MG/DL (8.5-10.1) Total Bilirubin 0.2 MG/DL (0.2-1.0) Aspartate Amino Transf (AST/SGOT) 21 U/L (15-37) Alanine Aminotransferase (ALT/SGPT) 33 U/L (12-78) Alkaline Phosphatase 109 U/L (46-116) Total Protein 6.4 G/DL (6.4-8.2) Albumin 2.7 G/DL (3.4-5.0) L Globulin 3.7 g/dL Albumin/Globulin Ratio 0.7 (1.0-2.7) L Current Medications Medications (Trade) Dose Ordered Sig/Aylin Route PRN Reason Start Time Stop Time Status Last Admin Dose Admin Acetaminophen (Tylenol) 650 mg Q4H PRN ORAL Mild Pain/Temp > 100.5 06/01/19 22:30 07/01/19 22:29 06/06/19 09:11 Acetaminophen/ Codeine Phosphate (Tylenol #3) 1 tab Q4H PRN ORAL PAIN 4-6 06/04/19 11:30 06/08/19 22:29 06/04/19 14:29 Atorvastatin Calcium (Lipitor) 40 mg BEDTIME ORAL 06/02/19 21:00 07/02/19 20:59 06/05/19 21:38 Bisacodyl (Dulcolax) 10 mg DAILY PRN RECTAL Constipation 06/01/19 22:30 07/01/19 22:29 Dextrose (Dextrose 50%) 25 ml Q30M PRN IV Hypoglycemia 06/01/19 22:30 07/01/19 22:29 Dextrose (Dextrose 50%) 50 ml Q30M PRN IV Hypoglycemia 06/01/19 22:30 07/01/19 22:29 Docusate Sodium (Colace) 100 mg TWICE A DAY ORAL 06/02/19 09:00 07/02/19 08:59 Escitalopram Oxalate (Lexapro) 10 mg DAILY ORAL 06/02/19 09:00 07/02/19 08:59 06/06/19 08:52 Gabapentin (Neurontin) 300 mg THREE TIMES A DAY ORAL 06/02/19 09:00 07/02/19 08:59 06/06/19 12:45 Heparin Sodium (Porcine) (Heparin 5000 units/ml) 5,000 units EVERY 12 HOURS SUBQ 06/02/19 09:00 07/02/19 08:59 06/02/19 21:17 Insulin Aspart (NovoLOG) 30 units NOVOTIAC SUBQ 06/05/19 06:45 07/02/19 06:29 06/06/19 11:45 Insulin Aspart (NovoLOG) CALL MD IF BS <60 OR >,400 BEFORE MEALS AND HS SUBQ 06/02/19 06:30 07/02/19 06:29 06/06/19 11:45 Insulin Detemir (Levemir) 70 units BID SUBQ 06/05/19 09:00 07/02/19 08:59 06/06/19 09:10 Lisinopril (Prinivil) 20 mg DAILY ORAL 06/02/19 09:00 07/02/19 08:59 06/06/19 08:53 Loperamide HCl (Imodium) 2 mg Q4H PRN ORAL Diarrhea 06/01/19 22:30 07/01/19 22:29 Magnesium Hydroxide (Mom) 30 ml DAILY PRN ORAL Constipation 06/01/19 22:30 07/01/19 22:29 Multivitamins Therapeutic (Therapeutic Multivitamin) 1 ea BID ORAL 06/02/19 09:00 07/02/19 08:59 06/06/19 08:53 Ondansetron HCl (Zofran) 4 mg Q8H PRN ORAL Nausea & Vomiting 06/01/19 22:30 07/01/19 22:29 Oxycodone/ Acetaminophen (Percocet 5-325) 1 tab Q4H PRN ORAL Severe Pain (Pain Scale 7-10) 06/01/19 22:30 06/08/19 22:29 Pantoprazole (Protonix) 40 mg DAILY ORAL 06/02/19 09:00 07/02/19 08:59 06/06/19 08:53 Piperacillin Sod/ Tazobactam Sod 3.375 gm/Sodium Chloride 110 ml @ 27.5 mls/hr EVERY 8 HOURS IVPB 06/02/19 14:00 06/07/19 13:59 06/06/19 14:51 Quetiapine Fumarate (SEROquel) 100 mg TWICE A DAY ORAL 06/02/19 09:00 07/02/19 08:59 06/06/19 08:53 Sodium Phosphate (Fleet's Sodium Phosl Enema) 133 ml DAILY PRN RECTAL Constipation 06/01/19 22:30 07/01/19 22:29 Vancomycin HCl (Vanco rx to dose) 1 ea DAILY PRN MISC Per rx protocol 06/01/19 18:00 07/01/19 17:59 Vancomycin HCl 750 mg/Sodium Chloride 275 ml @ 183.333 mls/hr Q12HR IVPB 06/05/19 09:00 06/10/19 08:59 06/06/19 11:37 Kwasi Martinez M.D. Jun 06, 2019 15:59
[2019-06-06 16:00] VITALS: BP 133/75
[2019-06-06] MEDS ORDERED: Vanco pharmacy to dose MISC (16:01)
--- NOTE | 2019-06-06 16:59 | General Progress Note ---
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 ICD Codes: E11.621 - Type 2 diabetes mellitus with foot ulcer; L97.502 - Non- pressure chronic ulcer of other part of unspecified foot with fat layer exposed SNOMED: 269225594, 91455986 Qualifiers: Qualified Codes: E10.621 - Type 1 diabetes mellitus with foot ulcer; L97.422 - Non-pressure chronic ulcer of left heel and midfoot with fat layer exposed Status: stable Assessment/Plan: increase Levemir to 80 units bid continue Novolog 30 units ac tid continue NISS ac / hs Subjective Allergies: Coded Allergies: METFORMIN (Verified Allergy, Unknown, 10/09/18) Vomiting All Systems: reviewed and negative except above Subjective events noted glucose still elevated despite very high insulin dose Item Value Date Time Bedside Blood Glucose 394 mg/dl H 06/06/19 1145 Bedside Blood Glucose 321 mg/dl H 06/06/19 0910 Bedside Blood Glucose 284 mg/dl H 06/05/19 2140 Bedside Blood Glucose 195 mg/dl H 06/05/19 1835 Objective Last 24 Hour Vital Signs Date Time Temp Pulse Resp B/P (MAP) Pulse Ox O2 Delivery O2 Flow Rate FiO2 06/06/19 16:00 98.1 67 18 133/75 (94) 95 06/06/19 14:26 74 22 98 06/06/19 12:00 98.5 57 18 159/84 (109) 97 06/06/19 09:00 Room Air 06/06/19 08:53 146/84 06/06/19 08:00 96.7 63 18 148/84 (105) 96 06/06/19 04:35 96.9 58 18 137/73 (94) 96 06/06/19 00:09 98.0 67 18 135/78 (97) 97 06/05/19 23:10 Room Air 06/05/19 20:00 98.8 70 18 135/72 (93) 96 06/05/19 19:51 97.2 Intake and Output 06/05/19 06/06/19 19:00 07:00 Intake Total 622.5 ml 385.000 ml Output Total 5 ml Balance 617.5 ml 385.000 ml Intake Oral 240 ml IV Total 382.5 ml 385.000 ml Output Estimated Blood Loss 5 ml # Voids 1 Laboratory Tests 06/06/19 05:25: White Blood Count 5.4, Red Blood Count 4.34L, Hemoglobin 12.2L, Hematocrit 38.1L , Mean Corpuscular Volume 88, Mean Corpuscular Hemoglobin 28.1, Mean Corpuscular Hemoglobin Concent 32.0, Red Cell Distribution Width 12.7, Platelet Count 234, Mean Platelet Volume 5.7L, Neutrophils (%) (Auto) 66.7, Lymphocytes ( %) (Auto) 23.5, Monocytes (%) (Auto) 5.8, Eosinophils (%) (Auto) 3.3H, Basophils (%) (Auto) 0.7, Sodium Level 137, Potassium Level 4.6, Chloride Level 102, Carbon Dioxide Level 30, Anion Gap 6, Blood Urea Nitrogen 21H, Creatinine 1.7H, Estimat Glomerular Filtration Rate 42.9, Glucose Level 302H, Calcium Level 8.7, Total Bilirubin 0.2, Aspartate Amino Transf (AST/SGOT) 21, Alanine Aminotransferase (ALT/SGPT) 33, Alkaline Phosphatase 109, Total Protein 6.4, Albumin 2.7L, Globulin 3.7, Albumin/Globulin Ratio 0.7L Height (Feet): 5 Height (Inches): 8.00 Weight (Pounds): 212 General Appearance: no apparent distress Neck: normal alignment Cardiovascular: normal rate Respiratory/Chest: lungs clear Abdomen: normal bowel sounds Objective Current Medications Medications (Trade) Dose Ordered Sig/Aylin Route PRN Reason Start Time Stop Time Status Last Admin Dose Admin Acetaminophen (Tylenol) 650 mg Q4H PRN ORAL Mild Pain/Temp > 100.5 06/01/19 22:30 07/01/19 22:29 06/06/19 09:11 Acetaminophen/ Codeine Phosphate (Tylenol #3) 1 tab Q4H PRN ORAL PAIN 4-6 06/04/19 11:30 06/08/19 22:29 06/04/19 14:29 Atorvastatin Calcium (Lipitor) 40 mg BEDTIME ORAL 06/02/19 21:00 07/02/19 20:59 06/05/19 21:38 Bisacodyl (Dulcolax) 10 mg DAILY PRN RECTAL Constipation 06/01/19 22:30 07/01/19 22:29 Dextrose (Dextrose 50%) 25 ml Q30M PRN IV Hypoglycemia 06/01/19 22:30 07/01/19 22:29 Dextrose (Dextrose 50%) 50 ml Q30M PRN IV Hypoglycemia 06/01/19 22:30 07/01/19 22:29 Docusate Sodium (Colace) 100 mg TWICE A DAY ORAL 06/02/19 09:00 07/02/19 08:59 Escitalopram Oxalate (Lexapro) 10 mg DAILY ORAL 06/02/19 09:00 07/02/19 08:59 06/06/19 08:52 Gabapentin (Neurontin) 300 mg THREE TIMES A DAY ORAL 06/02/19 09:00 07/02/19 08:59 06/06/19 12:45 Heparin Sodium (Porcine) (Heparin 5000 units/ml) 5,000 units EVERY 12 HOURS SUBQ 06/02/19 09:00 07/02/19 08:59 06/02/19 21:17 Insulin Aspart (NovoLOG) 30 units NOVOTIAC SUBQ 06/05/19 06:45 07/02/19 06:29 06/06/19 11:45 Insulin Aspart (NovoLOG) CALL MD IF BS <60 OR >,400 BEFORE MEALS AND HS SUBQ 06/02/19 06:30 07/02/19 06:29 06/06/19 11:45 Insulin Detemir (Levemir) 70 units BID SUBQ 06/05/19 09:00 07/02/19 08:59 06/06/19 09:10 Lisinopril (Prinivil) 20 mg DAILY ORAL 06/02/19 09:00 07/02/19 08:59 06/06/19 08:53 Loperamide HCl (Imodium) 2 mg Q4H PRN ORAL Diarrhea 06/01/19 22:30 07/01/19 22:29 Magnesium Hydroxide (Mom) 30 ml DAILY PRN ORAL Constipation 06/01/19 22:30 07/01/19 22:29 Multivitamins Therapeutic (Therapeutic Multivitamin) 1 ea BID ORAL 06/02/19 09:00 07/02/19 08:59 06/06/19 08:53 Ondansetron HCl (Zofran) 4 mg Q8H PRN ORAL Nausea & Vomiting 06/01/19 22:30 07/01/19 22:29 Oxycodone/ Acetaminophen (Percocet 5-325) 1 tab Q4H PRN ORAL Severe Pain (Pain Scale 7-10) 06/01/19 22:30 06/08/19 22:29 Pantoprazole (Protonix) 40 mg DAILY ORAL 06/02/19 09:00 07/02/19 08:59 06/06/19 08:53 Piperacillin Sod/ Tazobactam Sod 3.375 gm/Sodium Chloride 110 ml @ 27.5 mls/hr EVERY 8 HOURS IVPB 06/02/19 14:00 06/07/19 13:59 06/06/19 14:51 Quetiapine Fumarate (SEROquel) 100 mg TWICE A DAY ORAL 06/02/19 09:00 07/02/19 08:59 06/06/19 08:53 Sodium Phosphate (Fleet's Sodium Phosl Enema) 133 ml DAILY PRN RECTAL Constipation 06/01/19 22:30 07/01/19 22:29 Vancomycin HCl (Vanco rx to dose) 1 ea DAILY PRN MISC Per rx protocol 06/01/19 18:00 07/01/19 17:59 Vancomycin HCl 750 mg/Sodium Chloride 275 ml @ 183.333 mls/hr Q12HR IVPB 06/05/19 09:00 06/10/19 08:59 06/06/19 11:37 Binh Borges MD Jun 06, 2019 16:59
--- NOTE | 2019-06-06 17:11 | Podiatric Progress Note ---
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 Subjective Allergies: Coded Allergies: METFORMIN (Verified Allergy, Unknown, 10/09/18) Vomiting Subjective Patient 1 day s/p L foot bone bx Objective Exam Last 24 Hour Vital Signs Date Time Temp Pulse Resp B/P (MAP) Pulse Ox O2 Delivery O2 Flow Rate FiO2 06/06/19 16:00 98.1 67 18 133/75 (94) 95 06/06/19 14:26 74 22 98 06/06/19 12:00 98.5 57 18 159/84 (109) 97 06/06/19 09:00 Room Air 06/06/19 08:53 146/84 06/06/19 08:00 96.7 63 18 148/84 (105) 96 06/06/19 04:35 96.9 58 18 137/73 (94) 96 06/06/19 00:09 98.0 67 18 135/78 (97) 97 06/05/19 23:10 Room Air 06/05/19 20:00 98.8 70 18 135/72 (93) 96 06/05/19 19:51 97.2 Laboratory Tests Test 06/06/19 05:25 White Blood Count 5.4 K/UL (4.8-10.8) Red Blood Count 4.34 M/UL (4.70-6.10) L Hemoglobin 12.2 G/DL (14.2-18.0) L Hematocrit 38.1 % (42.0-52.0) L Mean Corpuscular Volume 88 FL (80-99) Mean Corpuscular Hemoglobin 28.1 PG (27.0-31.0) Mean Corpuscular Hemoglobin Concent 32.0 G/DL (32.0-36.0) Red Cell Distribution Width 12.7 % (11.6-14.8) Platelet Count 234 K/UL (150-450) Mean Platelet Volume 5.7 FL (6.5-10.1) L Neutrophils (%) (Auto) 66.7 % (45.0-75.0) Lymphocytes (%) (Auto) 23.5 % (20.0-45.0) Monocytes (%) (Auto) 5.8 % (1.0-10.0) Eosinophils (%) (Auto) 3.3 % (0.0-3.0) H Basophils (%) (Auto) 0.7 % (0.0-2.0) Sodium Level 137 MMOL/L (136-145) Potassium Level 4.6 MMOL/L (3.5-5.1) Chloride Level 102 MMOL/L (98-107) Carbon Dioxide Level 30 MMOL/L (21-32) Anion Gap 6 mmol/L (5-15) Blood Urea Nitrogen 21 mg/dL (7-18) H Creatinine 1.7 MG/DL (0.55-1.30) H Estimat Glomerular Filtration Rate 42.9 mL/min (>60) Glucose Level 302 MG/DL (74-106) H Calcium Level 8.7 MG/DL (8.5-10.1) Total Bilirubin 0.2 MG/DL (0.2-1.0) Aspartate Amino Transf (AST/SGOT) 21 U/L (15-37) Alanine Aminotransferase (ALT/SGPT) 33 U/L (12-78) Alkaline Phosphatase 109 U/L (46-116) Total Protein 6.4 G/DL (6.4-8.2) Albumin 2.7 G/DL (3.4-5.0) L Globulin 3.7 g/dL Albumin/Globulin Ratio 0.7 (1.0-2.7) L Microbiology Date/Time Source Procedure Growth Status 06/01/19 15:25 Blood Blood Culture - Preliminary NO GROWTH AFTER 4 DAYS Resulted 06/01/19 20:19 Nasal Nares MRSA Culture - Final Staphylococcus Aureus - Mrsa Complete 06/01/19 13:30 Foot Left Gram Stain - Final Complete 06/01/19 13:30 Wound Culture - Final Escherichia Coli Diphtheroids Complete Dermatological Dermatological Narrative L foot ulcer noted to be clear of drainage or discharge. no pus no cellulitis. Omar Bright DPM Jun 06, 2019 17:11
[2019-06-06] MEDS ORDERED: Levemir Flexpen SUBQ SCH (18:00)
[2019-06-06] MEDS ORDERED: ZOSYN (18:03)
[2019-06-06] MEDS ORDERED: VANCOMYCIN IV (18:04)
--- NOTE | 2019-06-06 18:17 | NUR ---
NURSE NOTES: ATTEMPTED TO GIVE REPORT BUT FACILITY SAID THEY HAVENT GOTTEN REFERRAL YET, RN RECEIVED FAXED CONFIRMATION THAT REFERRAL WAS SUCCESSFULLY FAXED
--- NOTE | 2019-06-06 19:30 | NUR ---
HAND-OFF: Report given to PACO Lobato.
--- NOTE | 2019-06-06 19:30 | NUR ---
NURSE NOTES: Received report from PACO Paige. Patient alert, awake, and verbally responsive to let his needs known. Breathing unlabored and evenly without signs of distress, discomfort, or SOB. Denies pain at this time. LUE IV noted and intact currently saline locked. Dressing on the left food noted intact and clean at this time. Bed placed at the lowest with brakes and side rails up x2 for safety. Call light placed within reach and will continue to provide care ordered and monitor frequently.
[2019-06-06 20:00] VITALS: BP 156/80
--- NOTE | 2019-06-06 20:00 | Operative Note - Dictated ---
DATE OF OPERATION: 06/05/2019 PREOPERATIVE DIAGNOSIS: Osteomyelitis, left foot. POSTOPERATIVE DIAGNOSIS: Osteomyelitis, left foot. PROCEDURE: Bone biopsy, left foot. ESTIMATED BLOOD LOSS: Minimal. ANESTHESIA: General with local. SURGEON: Omar Bright D.P.M PATHOLOGY: The patient with history of Charcot and partial osteomyelitis of the left foot. MRI was positive for osteomyelitis of left fourth metatarsal base cuneiform joint area. The patient had an ulceration probing to bone left foot. PROCEDURE IN DETAIL: Under mild sedation, the patient was brought into the operating room table and placed on the operating room table in the supine position. After general anesthesia administrated local injection of 12 mL of 1:1 mixture of 1% lidocaine plain and 0.5% Marcaine plain was administrated around his ankle for ankle block. The foot was then prepped and draped in usual aseptic manner. No pneumatic ankle tourniquet was utilized. After time-out was taken, attention was directed to the plantar medial aspect of the left foot at the base of the third and fourth metatarsals cuneiform area. Utilizing a rongeur, wound was debrided down to bone. All nonviable tissue was excised and passed the back table. Utilizing jamshidi, it was inserted from distal to proximal through cuneiform metatarsal fourth metatarsal area. Sample of the bone was taken, passed to the back table. A second sample was taken from adjacent area for better coverage. Upon completion of the procedure, the foot was then flushed with copious amount of normal saline. The wound was dressed with Xeroform, 4 x 4, Kerlix. The patient tolerated the procedure and anesthesia well. He was transferred to recovery with vital signs stable and vascular status intact. Order was written to resume all preoperative orders. The patient is to be transferred back to floor when stable. Dressing to be kept dry and intact and to be changed the following day. Omar Bright D.P.M DR: Rafael JOB#: [id number] CC: JOVON
--- NOTE | 2019-06-06 20:27 | NUR ---
NURSE NOTES: Called [facility] to give report couple times, but no one answered the phone.
[2019-06-06] MEDS: Atorvastatin 20mg tab ORAL SCH (21:27)
--- NOTE | 2019-06-06 22:18 | NUR ---
NURSE NOTES: Spoke to nurse BLANQUITA RN from [facility] to give report.
--- NOTE | 2019-06-06 23:18 | NUR ---
NURSE NOTES: Was not able to run the prescribed zosyn because patient will be discharge before finishing the medication. [facility] ETA [id number].
[2019-06-07] VITALS: BP 141/87
--- NOTE | 2019-06-07 01:04 | NUR ---
NURSE NOTES: EMT arrived at 0050. Patient left the unit with [facility] EMT members 0104. Patient stable and breathing unlabored and evenly. AAO x 4 Vital Sign: 143/84, HR 78, 96% O2sat in roomair, and RR 20. Patient belongings confirmed with patient and signed on the list that everything is there. Removed IV and ID band. Documentation provided to EMT to be handed to [facility]. Necessary education was provided.
--- NOTE | 2019-06-09 11:52 | Discharge Summary ---
Discharge Summary Discharge Summary _ DATE OF ADMISSION: 06/01/2019 DATE OF DISCHARGE: 06/07/2019 DISCHARGED BY: Dr. Haas REASON FOR ADMISSION: 48 years old male with past medical history of hypertension, COPD, diabetes mellitus type 2, depression, Charcot foot, presented with redness and swelling of his right lower extremity and drainage from his left foot. Patient also reported chills . Laboratory work-up revealed no leukocytosis , elevated inflammatory markers: ESR and CRP. Renal function similar to prior , since patient with history of chronic renal insufficiency. Glucose elevated 276. Venous duplex bilateral lower extremity revealed no evidence of acute DVT. Lactic acid 1.7 X-ray of the left foot revealed plantar surface ulcer extensive midfoot deformity consistent with Charcot changes postsurgical changes, no definite findings to suggest acute osteomyelitis. Chest x-ray revealed no acute cardiopulmonary pathology. Patient received IV antibiotic in ER and admitted for further management. CONSULTANTS: ID specialist Dr. Martinez Rub[employer] T[employer] Tubes Supervisor Dr. Bright Copper Plate Lithographer Dr. Borges Surgeon Dr. Rush HOSPITAL COURSE: Patient admitted to medical surgical floor. Patient started on IV antibiotic as per ID specialist recommendation. General surgeon followed. Patient presented with left midfoot plantar aspect ulceration, which was chronic. He had amputation of s of the fifth digit at the level the mid shaft metatarsal. Patient was unsure when he developed ulcer. Patient received wound care at the detention facility. On examination patient had open ulcer down to the fat layer with full odor, no significant active drainage, no abscess. Minimal surrounding cellulitis. No acute surgical intervention was required. MRI of the left foot was ordered. MRI of the left foot revealed extensive edema elsewhere, likely cellulitis . Extensive abnormality of the bones of the midfoot is described in detail on separate ankle/hindfoot MRI report, likely reflecting Charcot-type changes. 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 MRI of the left ankle revealed advanced arthritic abnormality of the midfoot. Most likely on the basis of Charcot changes. Evidence of marrow edema and periosteal thickening , involving the fourth metatarsal proximally, concerning for acute osteomyelitis and less likely to due to Charcot changes. X ray of the right foot revealed evidence of prior first digit amputation at the level of the interphalangeal joint Evidence of midfoot subluxation, likely representing early Charcot changes. Chronic appearing erosive changes of the fifth metatarsal head, probably due to degenerative changes No definite plain radiographic evidence of osteomyelitis. Rubber Tire And Tubes Supervisor seen and evaluated patient. Excisional debridement was performed to the left midfoot plantar aspect ulceration. Nonviable tissue was removed. Patient undergone subsequently bone biopsy of left foot on 06/05. At the time of this dictation pathology report still pending. Blood cultures were negative. Wound culture from left foot revealed E. coli and diphtheroids. ID specialist recommended continue vancomycin and Zosyn , pending tissue culture. Patient will need lifelong oral antibiotic for suppression after IV therapy for chronic osteomyelitis. ID specialist discussed that with the attending physician and laborer powerhouse. Legs were kept elevated. Copper Plate Lithographer followed for diabetes mellitus [id number]. Per automatic wheel line operator, blood sugar regimen was optimized, including long-acting Levemir, short acting NovoLog before meals along with sliding scale of insulin. Diabetic diet provided. Further adjustments were made according to the blood glucose level. Renal parameters electrolytes were closely monitored. Electrolytes corrected as needed. Nephrotoxins avoided. Creatinine from 1.9 down to 1.7. Pain management was addressed. Blood pressure was managed with BALJINDER inhibitor. Statin continued. DVT and GI prophylaxis provided. Bowel regimen instituted. Supportive care provided. Patient clinically stabilized and was ready for transfer to detention facility to continue IV antibiotic and wound care. FINAL DIAGNOSES: Diabetic foot ulcer left foot with fat layer exposed with underlying acute on chronic osteomyelitis of the fourth metatarsal Acute osteomyelitis of left foot fourth metatarsal Cellulitis right foot Poorly controlled diabetes Peripheral neuropathy Charcot foot Acute on chronic renal failure Diabetic nephropathy Peripheral artery disease Hypertension Noncompliance with medications DISCHARGE MEDICATIONS: See Medication Reconciliation list. DISCHARGE INSTRUCTIONS: Patient was discharged to the detention facility. Follow up with medical doctor at the facility. I have been assigned to dictate discharge summary for this account. I was not involved in the patient's management. Trang Hillman NP Jun 09, 2019 11:52
--- NOTE | 2019-06-11 09:04 | Diagnostic Imaging Report ---
APPROVED REPORT CPT Code: 88657 Comments BILATERAL LEGS PAIN. RIGHT LEG: Common femoral artery waveform analysis is within normal limits at rest. Color duplex sonography reveals patency of the superficial femoral, popliteal and tibial arteries. There is no evidence of stenosis or occlusion within these segments. However, Doppler waveform analysis is monophasic, consistent with minimal ischemia at rest. LEFT LEG: Common femoral artery waveform analysis is within normal limits at rest. Color duplex sonography reveals patency of the superficial femoral, popliteal and tibial arteries. There is no evidence of stenosis or occlusion within these segments.However, Doppler posterior, anterior and peroneal arteries waveform analysis are monophasic, consistent with moderate ischemia at rest.No color flow noted in distal poplitea artery.
== END 2019-06-07 01:00 | DRG 478 ==
LOC: EDBD 14:56 → EMR 15:55 → 4E 16:04 → EDBEDREQ 18:46 → 4E 21:29
PROC: 0YBN0ZZ Excision of Left Foot, Open Approach (ICD-10-PCS; principal; 2019-06-03)
PROC: 0QBP0ZX Excision of Left Metatarsal, Open Approach, Diagnostic (ICD-10-PCS; 2019-06-05)
DX: M86.172 Other acute osteomyelitis, left ankle and foot (principal); L03.115 Cellulitis of right lower limb; F33.1 Major depressive disorder, recurrent, moderate; N17.9 Acute kidney failure, unspecified; E11.621 Type 2 diabetes mellitus with foot ulcer; E11.22 Type 2 diabetes mellitus with diabetic chronic kidney disease; N18.9 Chronic kidney disease, unspecified; L97.522 Non-pressure chronic ulcer of other part of left foot with fat layer exposed; Z88.8 Allergy status to other drugs, medicaments and biological substances; E11.65 Type 2 diabetes mellitus with hyperglycemia; E11.610 Type 2 diabetes mellitus with diabetic neuropathic arthropathy; E11.42 Type 2 diabetes mellitus with diabetic polyneuropathy; I12.9 Hypertensive chronic kidney disease with stage 1 through stage 4 chronic kidney disease, or unspecified chronic kidney disease; E11.21 Type 2 diabetes mellitus with diabetic nephropathy; I73.9 Peripheral vascular disease, unspecified; Z91.14 Patient's other noncompliance with medication regimen; F41.9 Anxiety disorder, unspecified; F63.0 Pathological gambling; Z89.429 Acquired absence of other toe(s), unspecified side
CPT/HCPCS: 36415; 71045; 80053; 80202; 81003; 82550; 82962; 83605; 83690; 83735; 83880; 84484; 85025; 85610; 85651; 85730; 86140; 87040; 87070; 87081; 87181; 87205; 93005; 93925; 93971; 94003; 94150; 96365; 96367; 99285; J1815; J2250; J2405; S5561

== ENCOUNTER 2019-08-10 03:45 | Inpatient (IN) | payer MEDICARE, OTHER ==
[~2019-08-10] VITALS: Ht 185.4 cm; Wt 105.7 kg
[2019-08-10] VITALS (7 sets, daily range): BP systolic 90–150; BP diastolic 52–76
[~2019-08-10 03:45] MED LIST changes: +OMEPRAZOLE40 M1 ORAL; +VANCOMYCIN IV; +Vanco pharmacy to dose MISC; +ZOSYN
--- NOTE | 2019-08-10 04:00 | NUR ---
ED Nurse Note: Recieved pt biba from snf with c/o fevers, pt has chronic wounds on bilat lower feet, pt is awake, alert and orieneted x 4, very anxious, pt gowned and placed on cardiac monitoring, first refused, iv line palced and labs drawn, after refusing also, pt denies cp or any pain, will resume care as ordered, start on sepsis protocol and continue to closely monitor.
[2019-08-10] MEDS ORDERED: LUMIGAN2.5 ML RIGHT EYE (04:02)
[2019-08-10] MEDS ORDERED: DAPTOMYCIN350 MG IV (04:02)
[2019-08-10] MEDS ORDERED: LOTEMAX1 DROP RIGHT EYE (04:02)
[2019-08-10] MEDS ORDERED: NEURONTIN300 MG ORAL (04:02)
[2019-08-10] MEDS ORDERED: AZOPT10 ML OP (04:02)
[2019-08-10] MEDS ORDERED: NOVOLOG100 UNIT/5 SUBQ (04:02)
[2019-08-10] MEDS ORDERED: LEVEMIR100 UNIT/1 SUBQ (04:02)
[2019-08-10] MEDS ORDERED: HUMULIN R100 UNIT/1 SUBQ (04:02)
[2019-08-10] MEDS ORDERED: COMBIGAN EYE DRO5 ML OP (04:02)
[2019-08-10] MEDS ORDERED: NORCO 5-325 TA1 EACH ORAL (04:02)
[2019-08-10] MEDS ORDERED: ACETAMINOPHEN325 M1 ORAL (04:02)
--- NOTE | 2019-08-10 04:07 | Emergency Room Report ---
History of Present Illness General Chief Complaint: Fever Source: Patient, Medical Record Present Illness HPI Is a 48-year-old male with a history of uncontrolled diabetes secondary to noncompliance. He also has a history of chronic osteomyelitis of his feet. He has charcoat joint. There are over month ago for diabetic foot ulcer infection. He had a PICC line in for IV antibiotics. He was just removed 2 days ago. Now he presents with chief complaint of fever and high blood glucose. Onset today. There is also drainage of his feet. No nausea no vomiting. Fever 103. Patient said he is been walking more. He denies any trauma. No nausea no vomiting. No diarrhea. No cough or congestion. Allergies: Coded Allergies: METFORMIN (Verified Allergy, Unknown, 10/09/18) Vomiting Patient History Past Medical History: see triage record, old chart reviewed, DM, HTN, renal disease Past Surgical History: other Pertinent Family History: none Social History: Denies: smoking Immunizations: other Reviewed Nursing Documentation: PMH: Agreed; PSxH: Agreed Nursing Documentation-PMH Hx Cardiac Problems: Yes Hx Hypertension: Yes Hx COPD: Yes Hx Diabetes: Yes - type 2 Hx Cancer: No Hx Gastrointestinal Problems: No Hx Neurological Problems: No - muscle weakness, osteomyelitis Review of Systems Constitutional: Reports: fever Eye: Denies: eye pain, blurred vision ENT: Denies: ear pain, nose congestion, throat swelling Respiratory: Denies: cough, shortness of breath Cardiovascular: Denies: chest pain, palpitations Gastrointestinal: Denies: abdominal pain, diarrhea, nausea, vomiting Musculoskeletal: Denies: back pain, joint pain Skin: Denies: rash Neurological: Denies: headache, numbness Endocrine: Denies: increased thirst, increased urine Hematologic/Lymphatic: Denies: easy bruising All Other Systems: negative except mentioned in HPI Physical Exam Vital Signs Date Time Temp Pulse Resp B/P (MAP) Pulse Ox O2 Delivery O2 Flow Rate FiO2 08/10/19 03:45 98.1 82 18 82/54 (63) 92 Room Air Vitals with hypotension. Sp02 EP Interpretation: reviewed, normal General Appearance: well appearing, no apparent distress, alert Head: normocephalic, atraumatic Eyes: bilateral eye PERRL, bilateral eye EOMI ENT: hearing grossly normal, normal pharynx Neck: full range of motion, supple, no meningismus Respiratory: chest non-tender, lungs clear, normal breath sounds Cardiovascular #1: regular rate, rhythm, no murmur Gastrointestinal: normal bowel sounds, non tender, no mass, no organomegaly, no bruit, non-distended Musculoskeletal: back normal, gait/station normal, normal range of motion, other - Right foot: On the plantar surface, there is ulceration with some drainage. Left foot: On the plantar surface there is a large ulceration with purulent drainage. No crepitance bilaterally. Psychiatric: mood/affect normal Medical Decision Making Diagnostic Impression: Primary Impression: Sepsis Qualified Codes: A41.9 - Sepsis, unspecified organism; R65.20 - Severe sepsis without septic shock; N17.9 - Acute kidney failure, unspecified Additional Impressions: Poorly controlled diabetes mellitus Renal failure (ARF), acute on chronic Qualified Codes: N17.9 - Acute kidney failure, unspecified; N18.9 - Chronic kidney disease, unspecified Diabetic foot infection ER Course This patient presents with sepsis secondary to infected diabetic foot ulcer. He grew out E. coli culture in the past. Was pansensitive. I gave him Zosyn and vancomycin here. Blood pressure improved after IV fluid. His creatinine is bumped from 1.6 to 2.6. IV fluids given here. X-ray did not show any obvious osteomyelitis. Patient will be admitted for IV antibiotics and ID consult. I contacted Dr. Haas for admission. Rhythm Strip Diag. Results EP Interpretation: yes Rate: 76 Rhythm: NSR, no PVC's, no ectopy Other X-Ray Diagnostic Results Other X-Ray Diagnostic Results : X-Ray ordered: Left foot xrays # of Views/Limited Vs Complete: 3 View Indication: Pain EP Interpretation: Yes Interpretation: no dislocation, no soft tissue swelling, no fractures, other - Post operative changes. Charcot foot Impression: Other - Post op changes Electronically Signed by: Avi Solorzano MD Last Vital Signs Date Time Temp Pulse Resp B/P (MAP) Pulse Ox O2 Delivery O2 Flow Rate FiO2 08/10/19 03:45 98.1 82 18 82/54 (63) 92 Room Air Status: improved Disposition: ADMITTED INPATIENT Condition: Serious Avi Solorzano MD Aug 10, 2019 04:07
[2019-08-10] MEDS ORDERED: Piperacillin/Tazobactam 3.375 GM in NS 110 ML IVPB ONE (04:15)
[2019-08-10] MEDS ORDERED: Vancomycin 1.5 GM in NS 275 ML IVPB ONE (04:15)
[2019-08-10] MEDS ORDERED: Sodium Chloride 2,900 ML IVLG ONE (04:15)
[2019-08-10 04:23] LABS: BASOPHILS % (AUTO) 0.4 % (0.0-2.0); EOSINOPHILS % (AUTO) 0.1 % (0.0-3.0); HEMATOCRIT 36.6 % (42.0-52.0); LYMPHOCYTES % (AUTO) 7.9 % (20.0-45.0); MEAN CORPUSCULAR VOLUME 84 FL (80-99); MONOCYTES % (AUTO) 8.2 % (1.0-10.0); NEUTROPHILS % (AUTO) 83.5 % (45.0-75.0); PLATELET COUNT 254 K/UL (150-450); RED BLOOD COUNT 4.35 M/UL (4.70-6.10); RED CELL DISTRIBUTION WIDTH 13.7 % (11.6-14.8); WHITE BLOOD COUNT 11.5 K/UL (4.8-10.8)
[2019-08-10 04:33] LABS: ANION GAP 9 mmol/L (5-15); BLOOD UREA NITROGEN 34 mg/dL (7-18); CALCIUM 9.2 MG/DL (8.5-10.1); CARBON DIOXIDE 26 MMOL/L (21-32); CHLORIDE 95 MMOL/L (98-107); CREATININE 2.6 MG/DL (0.55-1.30); POTASSIUM 5.1 MMOL/L (3.5-5.1); SODIUM 129 MMOL/L (136-145)
--- NOTE | 2019-08-10 04:35 | NUR ---
ED Nurse Note: Pt to be admitted to hospital, bilat wounds on bottom of feet both photos taken and clean dry dressings applied, both wounds noted with openings and drainage, wounds are chronic, pt denies pain, swabs collected and sent for wounds and admission, pt b/p increasing, will continue to closely monitor.
[2019-08-10 04:37] LABS: INR 1.1 (0.9-1.1)
[2019-08-10 04:38] LABS: ALANINE AMINOTRANSFERASE 63 U/L (12-78); ALBUMIN 2.7 G/DL (3.4-5.0); ALBUMIN/GLOBULIN RATIO 0.5 (1.0-2.7); ALKALINE PHOSPHATASE 167 U/L (46-116); ASPARTATE AMINO TRANSFERASE 36 U/L (15-37); BILIRUBIN,TOTAL 0.9 MG/DL (0.2-1.0)
--- NOTE | 2019-08-10 05:13 | Diagnostic Imaging Report ---
EXAM: XR Left Foot Complete, 3 or More Views CLINICAL HISTORY: PAIN TECHNIQUE: Frontal, lateral and oblique views of the left foot. COMPARISON: No relevant prior studies available. FINDINGS: Bones joints: No acute fracture. No dislocation. Surgical absence of the fifth phalanges and distal half of the fifth metatarsal bone. Marked deformity in the mid foot and base of the first metatarsal bone likely posttraumatic post surgical change. Soft tissues: Soft tissue swelling about the plantar aspect of the foot. No radiopaque foreign body. IMPRESSION: 1. Marked deformity in the mid foot likely postsurgical posttraumatic change. 2. No gross acute bony abnormality. 3. Status post resection of the fifth phalanges as described
--- NOTE | 2019-08-10 05:45 | NUR ---
ED Nurse Note: Pt has room for admission, pt is angry he was awakened for belongings list and refuses to cooperate, report called ot PACO Adair on unit, report given, med rec completed, v/s stable, iv site patent, antibiotics completed, tolerated well, no s/s of adverse reaction noted, pt taken to floor bed via gurney with er-tech, nad noted during pt transport.
--- NOTE | 2019-08-10 08:14 | NUR ---
NURSE NOTES: Nurse report given by PACO Villavicencio. Patient's in bed, no s/s of distress or SOB, denies pain. IV is saline locked, patent and asymptomatic. Bed low and locked, call light within reach, side rails x 3, safety precaution is armed. Bilateral lower legs are wrapped with dressing. AO x 4, ambulates with assist. Patient teaching for fall risk and remind to call nurse when need help, Patient acknowledged. Will continue to monitor closely.
[2019-08-10] MEDS ORDERED: Lisinopril 20mg tab ORAL SCH (09:00)
[2019-08-10] MEDS: Multivitamin w/Minerals tab ORAL SCH ×2 (09:11→18:00)
[2019-08-10] MEDS: Docusate 100mg cap ORAL SCH ×2 (09:11→18:00)
[2019-08-10] MEDS: Heparin 5000 units/ml inj SUBQ SCH ×2 (09:16→21:49)
[2019-08-10] MEDS: Levemir Flexpen SUBQ SCH ×2 (10:29→18:00)
--- NOTE | 2019-08-10 11:33 | Consultation ---
Consult Note Consult Note I was asked to eval for worsenning renal failure- Patient admitted via ER for diabetic foot infection interviewed examined data reviewed Cr in 11.17- 11.18 now higher ER: Is a 48-year-old male with a history of uncontrolled diabetes secondary to noncompliance. He also has a history of chronic osteomyelitis of his feet. He has charcoat joint. There are over month ago for diabetic foot ulcer infection. He had a PICC line in for IV antibiotics. He was just removed 2 days ago. Now he presents with chief complaint of fever and high blood glucose. Onset today. There is also drainage of his feet. No nausea no vomiting. Fever 103. Patient said he is been walking more. He denies any trauma. No nausea no vomiting. No diarrhea. No cough or congestion. Allergies: METFORMIN (Verified Allergy, Unknown, 10/09/18) Vomiting Hx Cardiac Problems: Yes Hx Hypertension: Yes Hx COPD: Yes Hx Diabetes: Yes - type 2 . Hx Neurological Problems: No - muscle weakness, osteomyelitis Assessment/Plan Acute on chronic renal failure- Diabetic Nephropathy DM OOC Anemia Electrolyte imbalance HTN Keep BP and BS in check avoid nephrotoxics monitor renal parameters 2D echo COOPER kidney Urine studies NS bolus Ernesto Frost MD Aug 10, 2019 11:33
[2019-08-10] MEDS ORDERED: HydrALAZINE 25mg tab ORAL PRN (11:45)
--- NOTE | 2019-08-10 11:51 | History & Physical ---
History and Physical History & Physicial HISTORY OF PRESENT ILLNESS: The patient is a 48-year-old male with a history of uncontrolled diabetes with Charcot foot, who was referred from the long-term facility secondary to worsening of pain and discharges of the left foot. again, The patient reportedly is noncompliant with the diet. The patient reportedly had been particularly noncompliant with low sugar diet . Again, he had been reportedly overs-stayed out of pass visits in multiple occasions SOCIAL HISTORY: The patient denies history of smoking or alcohol abuse. PAST MEDICAL AND SURGICAL HISTORY: Including but not limited to uncontrolled diabetes, hypertension, noncompliance with the diet, bipolar disorder, Charcot foot, tarsometatarsal amputation, chronic kidney disease, and liver disease. FAMILY HISTORY: Reviewed and noncontributory. MEDICATIONS: Current hospital medications including, but not limited to, sliding scale insulin, BID PHYSICAL EXAMINATION: VITAL SIGNS: Blood pressure 98/80, temperature 98.2, pulse oximetry 98% on room air, and respiratory rate 18. HEAD AND NECK: multiple molars with plaques, Atraumatic and normocephalic. CHEST: Clear to auscultation. No wheezing. No crackles. HEART: S1 and S2. Regular rate and rhythm. No S3. No S4. ABDOMEN: Soft. No organomegaly.MUSCULOSKELETAL: Positive for bilater Charcot' s foot. Positive for stump of the prior tarsometatarsal resections. open wound in plantar aspect of left foot NEUROLOGIC: The patient is awake, alert, and oriented x3.PSYCHIATRIC: Mood and affect is normal LABORATORY DATA: Dated reviewed A/P: 1- Sever Sepsis 2. Acute cellulitis with or with out Acute OM of left foot. 2- DM- uncontrolled 3. Non compliance with medications 3- Charcot Foot- Left sided 4- HTN 5- Psych 6. Acute on Chronic KD Plan: Start empirical antibiotic regiment, ID is consulted will resume NH medications Had detailed conversation with patient regarding Compliance issue MRI of the foot Nephrology , Surgeon and ID are consulted. Comment: time of this dictation doesn't reflect actual time of encounter Dexter Haas MD Aug 10, 2019 11:51
--- NOTE | 2019-08-10 11:53 | General Progress Note ---
Assessment/Plan Assessment/Plan: S: I need food O: in low grade fever. Pain is well controlled . PHYSICAL EXAMINATION: . HEAD AND NECK: multiple molars with plaques, Atraumatic and normocephalic. CHEST: Clear to auscultation. No wheezing. No crackles.HEART: S1 and S2. Regular rate and rhythm. No S3. No S4. ABDOMEN: Soft. No organomegaly.MUSCULOSKELETAL: Positive for bilater Charcot' s foot. Positive for stump of the prior tarsometatarsal resections. open wound in plantar aspect of left foot NEUROLOGIC: The patient is awake, alert, and oriented x3.PSYCHIATRIC: Mood and affect is normal LABORATORY DATA: Dated reviewed A/P: 1- Sever Sepsis 2. Acute cellulitis with or with out Acute OM of left foot. 2- DM- uncontrolled 3. Non compliance with medications 3- Charcot Foot- Left sided 4- HTN 5- Psych 6. Acute on Chronic KD Plan: Discussed the care with Podiatry. Agree with the MRI of the foot Nephrology , Surgeon and ID are consulted. Subjective Allergies: Coded Allergies: METFORMIN (Verified Allergy, Unknown, 10/09/18) Vomiting Objective Last 24 Hour Vital Signs Date Time Temp Pulse Resp B/P (MAP) Pulse Ox O2 Delivery O2 Flow Rate FiO2 08/10/19 09:11 126/63 08/10/19 09:00 Room Air 08/10/19 08:00 98.3 80 18 126/63 (84) 97 08/10/19 06:54 Room Air 08/10/19 06:15 98.3 82 20 112/61 (78) 08/10/19 05:50 99.1 84 16 96/54 98 Room Air 08/10/19 05:29 99.1 84 16 96/54 98 Room Air 08/10/19 04:30 98.1 84 18 90/52 96 Room Air 08/10/19 03:55 82 18 Room Air 08/10/19 03:45 98.1 82 18 82/54 (63) 92 Room Air Intake and Output 08/09/19 08/10/19 19:00 07:00 Output Total 200 ml Balance -200 ml Output Urine Total 200 ml Laboratory Tests 08/10/19 03:50: White Blood Count 11.5H, Red Blood Count 4.35L, Hemoglobin 12.0L, Hematocrit 36.6L, Mean Corpuscular Volume 84, Mean Corpuscular Hemoglobin 27.5, Mean Corpuscular Hemoglobin Concent 32.7, Red Cell Distribution Width 13.7, Platelet Count 254, Mean Platelet Volume 5.7L, Neutrophils (%) (Auto) 83.5H, Lymphocytes (%) (Auto) 7.9L, Monocytes (%) (Auto) 8.2, Eosinophils (%) (Auto) 0.1, Basophils (%) (Auto) 0.4, Prothrombin Time 11.9H, Prothromb Time International Ratio 1.1, Activated Partial Thromboplast Time 36H, Sodium Level 129L, Potassium Level 5.1, Chloride Level 95L, Carbon Dioxide Level 26, Anion Gap 9, Blood Urea Nitrogen 34H, Creatinine 2.6H, Estimat Glomerular Filtration Rate 26.3, Glucose Level 342H, Lactic Acid Level 1.50, Calcium Level 9.2, Total Bilirubin 0.9, Aspartate Amino Transf (AST/SGOT) 36, Alanine Aminotransferase ( ALT/SGPT) 63, Alkaline Phosphatase 167H, Total Protein 7.9, Albumin 2.7L, Globulin 5.2, Albumin/Globulin Ratio 0.5L Height (Feet): 6 Height (Inches): 1.00 Weight (Pounds): 215 Dexter Haas MD Aug 10, 2019 11:53
[2019-08-10] MEDS: NovoLOG Insulin Flexpen SUBQ SCH ×5 (12:43→21:45)
--- NOTE | 2019-08-10 14:27 | NUR ---
PT Note Attempted to see patient for eval/tx but patient requests to defer PT till tomorrow.
[2019-08-10] MEDS: Piperacillin/Tazobactam 3.375 GM in NS 110 ML IVPB SCH ×2 (14:38→22:17)
--- NOTE | 2019-08-10 16:01 | Consultation ---
History of Present Illness General Date patient seen: Aug 10, 2019 Reason for Hospitalization: Fever Present Illness HPI This is a 48-year-old male known to me from prior admissions and care who presents from detention with worsening drainage from his left foot. Patient with history of Charcot's foot and multiple wounds requiring care and has been undergoing care for long-term the detention. He presents with acute worsening and states that the other foot also has edema and discomfort in the wound now as well. Leukocytosis, abnormal electrolytes, dehydration, renal insufficiency. Surgery called to evaluate and assist with care. Patient seen, patient Stevan, chart reviewed. Of note patient has been known to be noncompliant with care and care plan in the past. He is also a poor historian. Allergies: Coded Allergies: METFORMIN (Verified Allergy, Unknown, 10/09/18) Vomiting Medication History Scheduled Ascorbic Acid* (Vitamin C*), 250 MG ORAL DAILY, (Reported) Atorvastatin Calcium* (Lipitor*), 40 MG ORAL BEDTIME, (Reported) Bimatoprost (Lumigan), 1 DROP BOTH EYES QHS, (Reported) Brimonidine Tartrate/Timolol (Combigan Eye Drops), 5 ML OP BID, (Reported) Brinzolamide (Azopt), 10 ML OP BID, (Reported) Daptomycin (DAPTOmycin), 600 MG IV DAILY, (Reported) Docusate Sodium* (Docusate Sodium*), 100 MG ORAL TWICE A DAY, (Reported) Escitalopram Oxalate* (Lexapro*), 10 MG ORAL DAILY, (Reported) Gabapentin (Neurontin), 600 MG ORAL AT 10PM, (Reported) Gabapentin* (Neurontin*), 300 MG ORAL THREE TIMES A DAY, (Reported) Insulin Aspart (Novolog Flexpen), 30 UNITS SUBQ NOVOTIAC Insulin Aspart (Novolog), 30 UNITS SUBQ TID, (Reported) Insulin Detemir (Levemir Flexpen), 70 UNITS SUBQ BID Insulin Detemir (Levemir), 70 UNITS SUBQ BID, (Reported) Lisinopril (Lisinopril*), 20 MG ORAL DAILY, (Reported) Loteprednol Etabonate (Lotemax), 1 DROP OP BID, (Reported) Multivitamin With Minerals (Multivitamins With Minerals*), 1 TAB ORAL BID, ( Reported) Mupirocin* (Mupirocin*), 1 APPLIC TOPIC THREE TIMES A DAY, (Reported) Omeprazole (Omeprazole), 40 MG ORAL DAILY, (Reported) Quetiapine Fumarate* (Seroquel*), 100 MG ORAL TWICE A DAY, (Reported) Ranitidine HCl (Ranitidine HCl), 150 MG PO BID, (Reported) [Vancomycin Iv], PHARMACY TO DOSE, (Reported) Scheduled PRN Acetaminophen* (Acetaminophen 325MG Tablet*), 650 MG ORAL Q4H PRN for Mild Pain (Pain Scale 1-3), (Reported) Acetaminophen* (Acetaminophen 325MG Tablet*), 650 MG ORAL Q4H PRN for Mild Pain/ Temp > 100.5, (Reported) Bisacodyl (Bisacodyl), 10 MG RC DAILY PRN for Constipation, (Reported) Dextromethorphan Hbr/B-Skyler (Cepacol Sorethroat-Cough [place]*), 1 LOZENGE ORAL Q6H PRN for For Cough, (Reported) Guaifenesin/Dextromethorphan (Guaifenesin Dm Syrup), 10 ML PO Q6HR PRN for For Cough, (Reported) Hydrocodone Bit/Acetaminophen 5-325* ([place] 5-325*), 1 TAB ORAL Q8H PRN for For Pain, (Reported) Ibuprofen* (Motrin*), 600 MG ORAL Q6H PRN for For Pain, (Reported) Loperamide Hcl (Loperamide), 2 MG PO Q4HR PRN for Diarrhea, (Reported) Magnesium Hydroxide* (Milk Of Magnesia*), 30 ML ORAL DAILY PRN for Constipation, (Reported) Na Phos,M-B/Na Phos,Di-Ba* (Fleet Enema*), 133 ML RECTAL DAILY PRN for Constipation, (Reported) Neomycin/Polymyxin/Dexameth (Maxitrol Eye Drops), 1 DROP LEFT EYE BID PRN for Dry Eyes, (Reported) Ondansetron* (Zofran*), 4 MG ORAL Q8HR PRN for Nausea & Vomiting, (Reported) Tramadol Hcl* (Ultram*), 50 MG ORAL Q8HR PRN for Severe Pain (Pain Scale 7-10), (Reported) Miscellaneous Medications Insulin Regular, Human (Humulin R), 0 SUBQ, (Reported) [Zosyn], (Reported) Patient History Limited by: medical condition History Provided By: Patient, Medical Record, PMD Healthcare decision maker Abiola Prasad Resuscitation status Full Code Advanced Directive on File Past Medical/Surgical History Past Medical/Surgical History: (1) Hyperkalemia (2) Anxiety disorder (3) Diabetic nephropathy (4) Pansinusitis (5) MDD (major depressive disorder), recurrent episode, moderate (6) Gambling disorder, episodic, moderate (7) Foot ulcer due to secondary DM (8) Cellulitis of right foot (9) Osteomyelitis of ankle or foot, left, acute (10) Renal failure (ARF), acute on chronic (11) Diabetic foot infection (12) Poorly controlled diabetes mellitus (13) Sepsis Review of Systems Review of Symptoms General ROS: no weight loss or fever Psychological ROS: no depression or mood changes, no memory loss Ophthalmic ROS: no visual changes or eye irritation ENT ROS: no nasal congestion, hearing loss, dizziness Allergy and Immunology ROS: no allergic symptoms or urticaria Hematological and Lymphatic ROS: no swollen glands, unusual bleeding or bruising Endocrine ROS: no polyuria, polydipsia, weight changes, temperature intolerance Respiratory ROS: no cough, shortness of breath, or wheezing Cardiovascular ROS: no chest pain or dyspnea on exertion Gastrointestinal ROS: denies abdominal pain, no bright red blood in stool. Musculoskeletal ROS: no myalgias or arthralgias Neurological ROS: no TIA or stroke symptoms Dermatological ROS: no new or changing skin lesions, rashes or pruritis Physical Exam Physical Exam General appearance: alert, cooperative, no distress, appears stated age Head: Normocephalic, without obvious abnormality, atraumatic Eyes: conjunctivae/corneas clear. PERRL, EOM's intact. Fundi benign Throat: Lips, mucosa, and tongue normal. Teeth and gums normal Neck: supple, symmetrical, trachea midline, no adenopathy, thyroid: not enlarged, symmetric, no tenderness/mass/nodules, no carotid bruit and no JVD Lungs: clear to auscultation bilaterally Heart: regular rate and rhythm, S1, S2 normal, no murmur, click, rub or gallop Abdomen: soft, non-tender. Bowel sounds normal. No masses, no organomegaly Extremities: extremities edema Pulses: 2+ and symmetric Skin: Skin color, texture, turgor normal. No rashes or lesions Neurologic: Grossly normal Last 24 Hour Vital Signs Date Time Temp Pulse Resp B/P (MAP) Pulse Ox O2 Delivery O2 Flow Rate FiO2 08/10/19 12:00 98.1 84 18 131/69 (89) 98 08/10/19 09:11 126/63 08/10/19 09:00 Room Air 08/10/19 08:00 98.3 80 18 126/63 (84) 97 08/10/19 06:54 Room Air 08/10/19 06:15 98.3 82 20 112/61 (78) 08/10/19 05:50 99.1 84 16 96/54 98 Room Air 08/10/19 05:29 99.1 84 16 96/54 98 Room Air 08/10/19 04:30 98.1 84 18 90/52 96 Room Air 08/10/19 03:55 82 18 Room Air 08/10/19 03:45 98.1 82 18 82/54 (63) 92 Room Air Intake and Output 08/09/19 08/10/19 19:00 07:00 Output Total 200 ml Balance -200 ml Output Urine Total 200 ml Laboratory Tests Test 08/10/19 03:50 White Blood Count 11.5 K/UL (4.8-10.8) H Red Blood Count 4.35 M/UL (4.70-6.10) L Hemoglobin 12.0 G/DL (14.2-18.0) L Hematocrit 36.6 % (42.0-52.0) L Mean Corpuscular Volume 84 FL (80-99) Mean Corpuscular Hemoglobin 27.5 PG (27.0-31.0) Mean Corpuscular Hemoglobin Concent 32.7 G/DL (32.0-36.0) Red Cell Distribution Width 13.7 % (11.6-14.8) Platelet Count 254 K/UL (150-450) Mean Platelet Volume 5.7 FL (6.5-10.1) L Neutrophils (%) (Auto) 83.5 % (45.0-75.0) H Lymphocytes (%) (Auto) 7.9 % (20.0-45.0) L Monocytes (%) (Auto) 8.2 % (1.0-10.0) Eosinophils (%) (Auto) 0.1 % (0.0-3.0) Basophils (%) (Auto) 0.4 % (0.0-2.0) Prothrombin Time 11.9 SEC (9.30-11.50) H Prothromb Time International Ratio 1.1 (0.9-1.1) Activated Partial Thromboplast Time 36 SEC (23-33) H Sodium Level 129 MMOL/L (136-145) L Potassium Level 5.1 MMOL/L (3.5-5.1) Chloride Level 95 MMOL/L (98-107) L Carbon Dioxide Level 26 MMOL/L (21-32) Anion Gap 9 mmol/L (5-15) Blood Urea Nitrogen 34 mg/dL (7-18) H Creatinine 2.6 MG/DL (0.55-1.30) H Estimat Glomerular Filtration Rate 26.3 mL/min (>60) Glucose Level 342 MG/DL (74-106) H Lactic Acid Level 1.50 mmol/L (0.4-2.0) Calcium Level 9.2 MG/DL (8.5-10.1) Total Bilirubin 0.9 MG/DL (0.2-1.0) Aspartate Amino Transf (AST/SGOT) 36 U/L (15-37) Alanine Aminotransferase (ALT/SGPT) 63 U/L (12-78) Alkaline Phosphatase 167 U/L (46-116) H Total Protein 7.9 G/DL (6.4-8.2) Albumin 2.7 G/DL (3.4-5.0) L Globulin 5.2 g/dL Albumin/Globulin Ratio 0.5 (1.0-2.7) L Microbiology Date/Time Source Procedure Growth Status 08/10/19 04:30 Rectum Received Height (Feet): 6 Height (Inches): 1.00 Weight (Pounds): 215 Medications Current Medications Medications (Trade) Dose Ordered Sig/Aylin Route PRN Reason Start Time Stop Time Status Last Admin Dose Admin Acetaminophen (Tylenol) 650 mg Q4H PRN ORAL Mild Pain/Temp > 100.5 08/10/19 08:15 09/09/19 08:14 Atorvastatin Calcium (Lipitor) 40 mg BEDTIME ORAL 08/10/19 21:00 09/09/19 20:59 Bisacodyl (Dulcolax) 10 mg DAILY PRN RECTAL Constipation 08/10/19 08:15 09/09/19 08:14 Dextrose (Dextrose 50%) 25 ml Q30M PRN IV Hypoglycemia 08/10/19 07:15 09/09/19 07:14 Dextrose (Dextrose 50%) 50 ml Q30M PRN IV Hypoglycemia 08/10/19 07:15 09/09/19 07:14 Docusate Sodium (Colace) 100 mg TWICE A DAY ORAL 08/10/19 09:00 09/09/19 08:59 08/10/19 09:11 Escitalopram Oxalate (Lexapro) 10 mg DAILY ORAL 08/10/19 09:00 09/09/19 08:59 08/10/19 09:10 Famotidine (Pepcid) 20 mg DAILY@0630 ORAL 08/11/19 06:30 09/10/19 06:29 Gabapentin (Neurontin) 300 mg BID ORAL 08/10/19 09:00 09/09/19 08:59 08/10/19 09:11 Gabapentin (Neurontin) 600 mg BEDTIME ORAL 08/10/19 21:00 09/09/19 20:59 Heparin Sodium (Porcine) (Heparin 5000 units/ml) 5,000 units EVERY 12 HOURS SUBQ 08/10/19 09:00 09/09/19 08:59 08/10/19 09:16 Hydralazine HCl (Apresoline) 25 mg Q4H PRN ORAL bp over 160 syst 08/10/19 11:45 09/09/19 11:44 Insulin Aspart (NovoLOG) BEFORE MEALS AND HS SUBQ 08/10/19 11:30 09/09/19 11:29 08/10/19 12:44 Insulin Aspart (NovoLOG) 30 units NOVOTIAC SUBQ 08/10/19 11:50 09/09/19 11:49 08/10/19 12:43 Insulin Detemir (Levemir) 70 units BID SUBQ 08/10/19 09:00 09/09/19 08:59 08/10/19 10:29 Multivitamins Therapeutic (Therapeutic Multivitamin) 1 ea BID ORAL 08/10/19 09:00 09/09/19 08:59 08/10/19 09:11 Piperacillin Sod/ Tazobactam Sod 3.375 gm/Sodium Chloride 110 ml @ 27.5 mls/hr EVERY 8 HOURS IVPB 08/10/19 14:00 08/15/19 13:59 08/10/19 14:38 Quetiapine Fumarate (SEROquel) 100 mg Q12HR ORAL 08/10/19 09:00 09/09/19 08:59 08/10/19 09:11 Tamsulosin HCl (Flomax) 0.4 mg BEDTIME ORAL 08/10/19 21:00 09/09/19 20:59 Vancomycin HCl (Vanco rx to dose) 1 ea DAILY PRN MISC Per rx protocol 08/10/19 07:15 09/09/19 07:14 Assessment/Plan Problem List: (1) Osteomyelitis of ankle or foot, left, acute Assessment & Plan: Left Foot plain films FINDINGS: Bones joints: No acute fracture. No dislocation. Surgical absence of the fifth phalanges and distal half of the fifth metatarsal bone. Marked deformity in the mid foot and base of the first metatarsal bone likely posttraumatic post surgical change. Soft tissues: Soft tissue swelling about the plantar aspect of the foot. No radiopaque foreign body. IMPRESSION: 1. Marked deformity in the mid foot likely postsurgical posttraumatic change. 2. No gross acute bony abnormality. 3. Status post resection of the fifth phalanges as described ICD Codes: M86.172 - Other acute osteomyelitis, left ankle and foot SNOMED: 042264270 (2) Foot ulcer due to secondary DM ICD Codes: E13.621 - Other specified diabetes mellitus with foot ulcer; L97.509 - Non-pressure chronic ulcer of other part of unspecified foot with unspecified severity SNOMED: 6906111, [id number] (3) Cellulitis of lower extremity Assessment & Plan: This is a 48-year-old male with known history of prior infections and surgical mention of his lower extremity Charcot's foot who is been recovering in a nursing facility until recently noted to have more edema cellulitis and drainage. Leukocytosis, HD stable, renal insufficiency, dehydration. Admitted for further care and management IV antibiotics as per infectious disease Podiatry consultation appreciated Trend labs MRI of right and left lower extremity ordered and pending completion We will continue with local wound care and antibiotics. Will discuss with podiatry potential necessity for further surgical intervention Thank you for allowing me to participate in patient's care will continue to follow with recognitions ICD Codes: L03.119 - Cellulitis of unspecified part of limb SNOMED: [id number] Melquiades Rush Aug 10, 2019 16:01
--- NOTE | 2019-08-10 16:30 | NUR ---
NURSE NOTES: Left message to Dr. Borges regarding about patient's insulin coverage. Patient ate 25% of his breakfast and did not eat lunch. He resisted to care and slept all day. Patient has been received 70units of Levemir this morning, 30units of schedule Insulin Novolog and 10units coverage sliding scale Novolog. Blood glucose was check again at 1600, it was 193. Nurse did not feel comfortable giving that much of insulin. Dr Borges said only administer sliding scale coverage, and not administer the schedule 30 units of Novolog. Order acknowledged and carried out.
--- NOTE | 2019-08-10 16:30 | NUR ---
NURSE NOTES: Patient's been resisted to care. He wanted to ambulate even though PT evaluated and Dr. Rush put the note for non-weight bearing, bedrest for Acute osteomylitis and PT suggested for non-weightbearing on patient. Patient is still uncooperative. Bed alarm precaution is on, call light is within reach, yet patient still tried to get out of bed. He stated: " I do whatever I want." Nurse explained the risk of using weight bearing on his legs and he still refused to care. Contacted Dr. Haas regarding about the situation, Doctor is aware.
--- NOTE | 2019-08-10 16:35 | NUR ---
NURSE NOTES: Dr Haas order psych consult by Dr. Diaz for patient. Order acknowledged and carried out. Notified Dr. Diaz for new consult.
--- NOTE | 2019-08-10 17:03 | NUR ---
PT Note PT eval completed, tx initiated. At time of eval, no definitive diagnosis of osteomyelitis was noted in the chart. However, per consult note of Dr. Rush (written at 1601), patient has acute osteomyelitis on the left ankle/foot. Patient needs to be NWB due to left ankle/foot acute osteomyelitis, so gait training will be deferred. Weight bearing activities can be restarted later after ATB tx has been started and verified with MD. Patient can benefit from PT services to increase his muscle strength and balance to improve his functional mobility, focusing on safe transfers WC to/from bed/toilet, and maintaining NWB to the LLE. Addendum: 08/10/19 at 1704 by MERON HUSTON PT Amended: Links added.
--- NOTE | 2019-08-10 18:00 | NUR ---
NURSE NOTES: patient refused his 1800 medications, including Levimir. Patient teaching given, especially regarding about patient's blood sugar level. Patient still refused.
--- NOTE | 2019-08-10 19:26 | Infectious Diseases Prog Note ---
Assessment/Plan Problems: (1) Acute on chronic osteomyelitis Assessment & Plan: of the left foot , S/P I&D recently by publishing agent, unfortunately no tissue or bone biopsy was done on his last admission to guide antibiotics treatment due to the chronicity of his left foot osteomyelitis and the need for terminal clerk oral suppression after knowing the causing organisms with bone culture, will discuss with publishing agent the need for bone biopsy and culture . 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 monitor ck weekly (2) Renal failure (ARF), acute on chronic Assessment & Plan: avoid nephrotoxics , continue hydration, close monitoring of renal function, renal is following (3) Poorly controlled diabetes mellitus Assessment & Plan: recommend tight glycemic control to keep blood glucose between 100-140 (4) Diabetic foot infection Assessment & Plan: already on wide spectrum antibiotics , keep leg elevated while in bed, tight glycemic control Subjective Allergies: Coded Allergies: METFORMIN (Verified Allergy, Unknown, 10/09/18) Vomiting Objective Vital Signs Last 24 Hour Vital Signs Date Time Temp Pulse Resp B/P (MAP) Pulse Ox O2 Delivery O2 Flow Rate FiO2 08/10/19 16:00 98.5 90 19 136/74 (94) 98 08/10/19 12:00 98.1 84 18 131/69 (89) 98 08/10/19 09:11 126/63 08/10/19 09:00 Room Air 08/10/19 08:00 98.3 80 18 126/63 (84) 97 08/10/19 06:54 Room Air 08/10/19 06:15 98.3 82 20 112/61 (78) 08/10/19 05:50 99.1 84 16 96/54 98 Room Air 08/10/19 05:29 99.1 84 16 96/54 98 Room Air 08/10/19 04:30 98.1 84 18 90/52 96 Room Air 08/10/19 03:55 82 18 Room Air 08/10/19 03:45 98.1 82 18 82/54 (63) 92 Room Air Height (Feet): 6 Height (Inches): 1.00 Weight (Pounds): 215 Microbiology Date/Time Source Procedure Growth Status 08/10/19 04:30 Rectum Received Laboratory Tests Test 08/10/19 03:50 White Blood Count 11.5 K/UL (4.8-10.8) H Red Blood Count 4.35 M/UL (4.70-6.10) L Hemoglobin 12.0 G/DL (14.2-18.0) L Hematocrit 36.6 % (42.0-52.0) L Mean Corpuscular Volume 84 FL (80-99) Mean Corpuscular Hemoglobin 27.5 PG (27.0-31.0) Mean Corpuscular Hemoglobin Concent 32.7 G/DL (32.0-36.0) Red Cell Distribution Width 13.7 % (11.6-14.8) Platelet Count 254 K/UL (150-450) Mean Platelet Volume 5.7 FL (6.5-10.1) L Neutrophils (%) (Auto) 83.5 % (45.0-75.0) H Lymphocytes (%) (Auto) 7.9 % (20.0-45.0) L Monocytes (%) (Auto) 8.2 % (1.0-10.0) Eosinophils (%) (Auto) 0.1 % (0.0-3.0) Basophils (%) (Auto) 0.4 % (0.0-2.0) Prothrombin Time 11.9 SEC (9.30-11.50) H Prothromb Time International Ratio 1.1 (0.9-1.1) Activated Partial Thromboplast Time 36 SEC (23-33) H Sodium Level 129 MMOL/L (136-145) L Potassium Level 5.1 MMOL/L (3.5-5.1) Chloride Level 95 MMOL/L (98-107) L Carbon Dioxide Level 26 MMOL/L (21-32) Anion Gap 9 mmol/L (5-15) Blood Urea Nitrogen 34 mg/dL (7-18) H Creatinine 2.6 MG/DL (0.55-1.30) H Estimat Glomerular Filtration Rate 26.3 mL/min (>60) Glucose Level 342 MG/DL (74-106) H Lactic Acid Level 1.50 mmol/L (0.4-2.0) Calcium Level 9.2 MG/DL (8.5-10.1) Total Bilirubin 0.9 MG/DL (0.2-1.0) Aspartate Amino Transf (AST/SGOT) 36 U/L (15-37) Alanine Aminotransferase (ALT/SGPT) 63 U/L (12-78) Alkaline Phosphatase 167 U/L (46-116) H Total Protein 7.9 G/DL (6.4-8.2) Albumin 2.7 G/DL (3.4-5.0) L Globulin 5.2 g/dL Albumin/Globulin Ratio 0.5 (1.0-2.7) L Current Medications Medications (Trade) Dose Ordered Sig/Aylin Route PRN Reason Start Time Stop Time Status Last Admin Dose Admin Acetaminophen (Tylenol) 650 mg Q4H PRN ORAL Mild Pain/Temp > 100.5 08/10/19 08:15 09/09/19 08:14 Atorvastatin Calcium (Lipitor) 40 mg BEDTIME ORAL 08/10/19 21:00 09/09/19 20:59 Bisacodyl (Dulcolax) 10 mg DAILY PRN RECTAL Constipation 08/10/19 08:15 09/09/19 08:14 Dextrose (Dextrose 50%) 25 ml Q30M PRN IV Hypoglycemia 08/10/19 07:15 09/09/19 07:14 Dextrose (Dextrose 50%) 50 ml Q30M PRN IV Hypoglycemia 08/10/19 07:15 09/09/19 07:14 Docusate Sodium (Colace) 100 mg TWICE A DAY ORAL 08/10/19 09:00 09/09/19 08:59 08/10/19 09:11 Escitalopram Oxalate (Lexapro) 10 mg DAILY ORAL 08/10/19 09:00 09/09/19 08:59 08/10/19 09:10 Famotidine (Pepcid) 20 mg DAILY@0630 ORAL 08/11/19 06:30 09/10/19 06:29 Gabapentin (Neurontin) 300 mg BID ORAL 08/10/19 09:00 09/09/19 08:59 08/10/19 09:11 Gabapentin (Neurontin) 600 mg BEDTIME ORAL 08/10/19 21:00 09/09/19 20:59 Heparin Sodium (Porcine) (Heparin 5000 units/ml) 5,000 units EVERY 12 HOURS SUBQ 08/10/19 09:00 09/09/19 08:59 08/10/19 09:16 Hydralazine HCl (Apresoline) 25 mg Q4H PRN ORAL bp over 160 syst 08/10/19 11:45 09/09/19 11:44 Insulin Aspart (NovoLOG) BEFORE MEALS AND HS SUBQ 08/10/19 11:30 09/09/19 11:29 08/10/19 12:44 Insulin Aspart (NovoLOG) 30 units NOVOTIAC SUBQ 08/10/19 11:50 09/09/19 11:49 08/10/19 12:43 Insulin Detemir (Levemir) 70 units BID SUBQ 08/10/19 09:00 09/09/19 08:59 08/10/19 10:29 Multivitamins Therapeutic (Therapeutic Multivitamin) 1 ea BID ORAL 08/10/19 09:00 09/09/19 08:59 08/10/19 09:11 Piperacillin Sod/ Tazobactam Sod 3.375 gm/Sodium Chloride 110 ml @ 27.5 mls/hr EVERY 8 HOURS IVPB 08/10/19 14:00 08/15/19 13:59 08/10/19 14:38 Quetiapine Fumarate (SEROquel) 100 mg Q12HR ORAL 08/10/19 09:00 09/09/19 08:59 08/10/19 09:11 Tamsulosin HCl (Flomax) 0.4 mg BEDTIME ORAL 08/10/19 21:00 09/09/19 20:59 Vancomycin HCl (Vanco rx to dose) 1 ea DAILY PRN MISC Per rx protocol 08/10/19 07:15 09/09/19 07:14 Kwasi Martinez M.D. Aug 10, 2019 19:26
[2019-08-10 19:32] LABS: CREATINE KINASE 133 U/L (26-308)
--- NOTE | 2019-08-10 19:42 | NUR ---
HAND-OFF: Report given to PACO Mclaughlin. Patient's stable.
--- NOTE | 2019-08-10 19:43 | NUR ---
NURSE NOTES: Received report from PACO Navarro. Patient is in bed, awake and alert x3. No c/o pain at this time. On room air with no signs of distress or SOB. IV intact and saline locked. Bilateral leg dressing dry and intact. Educated patient on fall risk and calling for assistance. Bed locked and in lowest position. Call light in reach. Will continue to monitor the patient.
--- NOTE | 2019-08-10 20:30 | Consultation ---
DATE OF CONSULTATION: 08/10/2019 CONSULTING PHYSICIAN: Omar Bright D.P.M REFERRING PHYSICIAN: Dexter Haas M.D. REASON FOR CONSULTATION: Diabetic foot infection, bilateral. HISTORY OF PRESENT ILLNESS: This is a well known to our service, diabetic patient with peripheral neuropathy and diabetic foot infection who was admitted through the ER with cellulitis of the bilateral feet. The patient states that he noticed his right foot swollen and becoming more sensitive. He was concerned that his foot was infected and was brought to the ER for evaluation and treatment. The patient states that he has Charcot deformity to his left foot and he was told many times not to walk. He now is walking and walks long distance . The patient states he had fever, chills, nausea feeling, and pain to bilateral feet. PAST MEDICAL HISTORY: Diabetic neuropathy, Charcot deformity, diabetic foot infection, peripheral vascular disease, peripheral arterial disease, edema to bilateral legs. PODIATRY EXAMINATION: VASCULAR: Dorsalis pedis and posterior tibial artery are palpable. Capillary filling time is within 5 seconds. Edema noted to bilateral feet, greater on the right compared to the left distal to the mid ankle. NEUROLOGICAL EXAMINATION: Sharp and dull proprioception, protective threshold noted to be diminished consistent with peripheral neuropathy. MUSCULOSKELETAL EXAMINATION: Left foot noted to have Charcot deformity at midfoot area with collapse of the tarsal area with pressure being applied to the cuboid metatarsal junction joint area bony prominence just superior to the ulceration site. Right foot noted to be red, hot, swollen with collapsed arch compared to previous visit consistent with early Charcot deformity at the midfoot area. Range of motion noted to be diminished. Muscle strength noted to be stronger on the right compared to the left. Left side noted slight diminution in muscle strength and muscle tone. DERMATOLOGICAL EXAMINATION: Attention was directed to the plantar aspect of the left foot at the cuboid metatarsal junction area where an ulceration is noted with hyperkeratotic lesion periwound area. There is no drainage, discharge, or purulent matter. Ulceration is probing to bone. There is no malodor. There is periwound cellulitis. Ulceration is noted to be 4 x 3 cm in diameter. Attention was directed to the right foot where an ulceration/blistering type changes noted to the plantar aspect of the cuboid/metatarsal area fourth and fifth. There is no open wound. There is no drainage, discharge, or purulent matter. There is probing to dermal layer. There is slight fluctuation in the area. There is periwound cellulitis. There is cellulitis on the dorsum of the foot. There is no malodor. There is no probing or undermining. ASSESSMENT AND PLAN: 1. Diabetic foot with peripheral neuropathy and cellulitis. 2. Charcot deformity, chronic to the left. 3. Newly developed Charcot deformity to the right with cellulitis and diabetic foot ulceration. Order was written for MRI of bilateral feet. Order was written for application of Betadine to the ulceration site. The patient will be followed. Omar Bright D.P.M DR: ABELARDO JOB#: [id number] CC:
[2019-08-10] MEDS ORDERED: NS IV SCH (21:00)
[2019-08-10] MEDS ORDERED: DAPTOMYCIN IV SCH (21:00)
[2019-08-10] MEDS: Atorvastatin 20mg tab ORAL SCH (21:30)
[2019-08-10] MEDS: Tamsulosin 0.4mg cap ORAL SCH (21:30)
--- NOTE | 2019-08-10 22:00 | Consultation ---
DATE OF CONSULTATION: 08/10/2019 NEPHROLOGY CONSULTATION CONSULTING PHYSICIAN: Binh Borges M.D. REFERRING PHYSICIAN: Dexter Haas M.D. REASON FOR CONSULTATION: Diabetes management. HISTORY OF PRESENT ILLNESS: This is a small is a 48-year-old male with a history of insulin-dependent diabetes, on high-dose insulin regimen, whom I am familiar with from recent admission with history of chronic osteomyelitis of his feet, has a Charcot joint. The patient is admitted to the hospital for diabetic foot ulcer on the lower extremity. The patient had a PICC line which was removed 2 days ago. He presents with fever and high glucose and also has discharge from the feet. Endocrinology was consulted. PAST MEDICAL HISTORY: 1. Cardiovascular disease. 2. Hypertension. 3. COPD. 4. Insulin-dependent diabetes. MEDICATIONS: Reviewed and reconciled. PAST SURGICAL HISTORY: I and D of the lower extremity. ALLERGIES: Metformin. REVIEW OF SYSTEMS: As per HPI. FAMILY HISTORY: Noncontributory. SOCIAL HISTORY: No smoking, alcohol, or drug use. LABORATORY DATA: WBC 11.5, hemoglobin 12, hematocrit 36, and platelets of 254,000. Sodium 129, potassium 5.1, chloride 95, bicarb 26, BUN 34, creatinine 2.6, and glucose of 342. PHYSICAL EXAMINATION: GENERAL: The patient is awake. VITAL SIGNS: Blood pressure is 126/63, pulse 80, temperature 98.2, and respiratory rate of 18. HEENT: Pupils are reactive to light. Sclerae is anicteric. NECK: No JVD. HEART: Regular. LUNGS: Clear. ABDOMEN: Positive bowel sounds. EXTREMITIES: Lower extremity, Charcot feet with wound ulcer. DIAGNOSES: 1. Diabetic foot ulcer. 2. Fever. 3. Diabetes, out of control. PLAN: 1. Levemir 70 units b.i.d. 2. NovoLog 30 units before each meal. 3. NovoLog sliding scale before meals and at bedtime. 4. Further adjustment according to blood glucose values. I will follow the patient closely during the stay. Thank you, Dr. Frost, for the courtesy of this consultation. Binh Borges M.D. DR: LUCINDA JOB#: [id number] CC: JOVON
[2019-08-11] VITALS: BP 117/56
[2019-08-11 04:00] VITALS: BP 97/51
--- NOTE | 2019-08-11 05:02 | NUR ---
NURSE NOTES: Received report from Larry from Lab that the patient's blood culture is positive for gram negative rods. Notified infectious disease Dr. Martinez. Addendum: 08/11/19 at 0504 by TASNEEM DELACRUZ RN stack attendant made aware as well
[2019-08-11] MEDS: NovoLOG Insulin Flexpen SUBQ SCH ×8 (06:30→20:48)
--- NOTE | 2019-08-11 06:30 | General Progress Note ---
Assessment/Plan Problem List: (1) Foot ulcer due to secondary DM ICD Codes: E13.621 - Other specified diabetes mellitus with foot ulcer; L97.509 - Non-pressure chronic ulcer of other part of unspecified foot with unspecified severity SNOMED: 5752001, 414553631 (2) Diabetic nephropathy ICD Codes: E11.21 - Type 2 diabetes mellitus with diabetic nephropathy SNOMED: 49780126, 877823490 (3) Poorly controlled diabetes mellitus ICD Codes: E11.65 - Type 2 diabetes mellitus with hyperglycemia SNOMED: 85005432, 697642549 (4) MDD (major depressive disorder), recurrent episode, moderate ICD Codes: F33.1 - Major depressive disorder, recurrent, moderate SNOMED: 16856559, 066230114 Assessment/Plan: change Levemir to 50 units bid change Novolog to 20 units ac tid - hold if not eating continue NISS ac / hs Subjective Allergies: Coded Allergies: METFORMIN (Verified Allergy, Unknown, 10/09/18) Vomiting All Systems: reviewed and negative except above Subjective events noted Item Value Date Time Bedside Blood Glucose 190 mg/dl H 08/10/19 2145 Bedside Blood Glucose 193 mg/dl H 08/10/19 1650 Bedside Blood Glucose 334 mg/dl H 08/10/19 1244 Bedside Blood Glucose 319 mg/dl H 08/10/19 1029 Objective Last 24 Hour Vital Signs Date Time Temp Pulse Resp B/P (MAP) Pulse Ox O2 Delivery O2 Flow Rate FiO2 08/11/19 04:00 97.0 100 18 97/51 (66) 95 08/11/19 00:00 99.9 108 19 117/56 (76) 98 08/10/19 21:00 Room Air 08/10/19 21:00 100.8 107 20 150/76 (100) 98 08/10/19 16:00 98.5 90 19 136/74 (94) 98 08/10/19 12:00 98.1 84 18 131/69 (89) 98 08/10/19 09:11 126/63 08/10/19 09:00 Room Air 08/10/19 08:00 98.3 80 18 126/63 (84) 97 08/10/19 06:54 Room Air Intake and Output 08/10/19 08/11/19 19:00 07:00 Intake Total 560 ml Output Total 600 ml Balance -40 ml Intake Oral 560 ml Output Urine Total 600 ml # Voids 3 Height (Feet): 6 Height (Inches): 1.00 Weight (Pounds): 215 General Appearance: no apparent distress Neck: normal alignment Cardiovascular: normal rate Respiratory/Chest: lungs clear Abdomen: normal bowel sounds Pelvis: normal external exam Objective Current Medications Medications (Trade) Dose Ordered Sig/Aylin Route PRN Reason Start Time Stop Time Status Last Admin Dose Admin Acetaminophen (Tylenol) 650 mg Q4H PRN ORAL Mild Pain/Temp > 100.5 08/10/19 08:15 09/09/19 08:14 Atorvastatin Calcium (Lipitor) 40 mg BEDTIME ORAL 08/10/19 21:00 09/09/19 20:59 08/10/19 21:30 Bisacodyl (Dulcolax) 10 mg DAILY PRN RECTAL Constipation 08/10/19 08:15 09/09/19 08:14 Daptomycin 970 mg/ Sodium Chloride 55 ml @ 100 mls/hr Q48H IV 08/10/19 21:00 08/17/19 20:59 08/10/19 21:31 Dextrose (Dextrose 50%) 25 ml Q30M PRN IV Hypoglycemia 08/10/19 07:15 09/09/19 07:14 Dextrose (Dextrose 50%) 50 ml Q30M PRN IV Hypoglycemia 08/10/19 07:15 09/09/19 07:14 Docusate Sodium (Colace) 100 mg TWICE A DAY ORAL 08/10/19 09:00 09/09/19 08:59 08/10/19 09:11 Escitalopram Oxalate (Lexapro) 10 mg DAILY ORAL 08/10/19 09:00 09/09/19 08:59 08/10/19 09:10 Famotidine (Pepcid) 20 mg DAILY@0630 ORAL 08/11/19 06:30 09/10/19 06:29 Gabapentin (Neurontin) 300 mg BID ORAL 08/10/19 09:00 09/09/19 08:59 08/10/19 09:11 Gabapentin (Neurontin) 600 mg BEDTIME ORAL 08/10/19 21:00 09/09/19 20:59 08/10/19 21:31 Heparin Sodium (Porcine) (Heparin 5000 units/ml) 5,000 units EVERY 12 HOURS SUBQ 08/10/19 09:00 09/09/19 08:59 08/10/19 21:49 Hydralazine HCl (Apresoline) 25 mg Q4H PRN ORAL bp over 160 syst 08/10/19 11:45 09/09/19 11:44 Insulin Aspart (NovoLOG) BEFORE MEALS AND HS SUBQ 08/10/19 11:30 09/09/19 11:29 08/10/19 21:45 Insulin Aspart (NovoLOG) 30 units NOVOTIAC SUBQ 08/10/19 11:50 09/09/19 11:49 08/10/19 12:43 Insulin Detemir (Levemir) 70 units BID SUBQ 08/10/19 09:00 09/09/19 08:59 08/10/19 10:29 Multivitamins Therapeutic (Therapeutic Multivitamin) 1 ea BID ORAL 08/10/19 09:00 09/09/19 08:59 08/10/19 09:11 Piperacillin Sod/ Tazobactam Sod 3.375 gm/Sodium Chloride 110 ml @ 27.5 mls/hr EVERY 8 HOURS IVPB 08/10/19 14:00 08/15/19 13:59 08/10/19 22:17 Quetiapine Fumarate (SEROquel) 100 mg Q12HR ORAL 08/10/19 09:00 09/09/19 08:59 08/10/19 21:29 Tamsulosin HCl (Flomax) 0.4 mg BEDTIME ORAL 08/10/19 21:00 09/09/19 20:59 08/10/19 21:30 Binh Bogres MD Aug 11, 2019 06:30
[2019-08-11] MEDS: Piperacillin/Tazobactam 3.375 GM in NS 110 ML IVPB SCH (06:58)
--- NOTE | 2019-08-11 07:50 | NUR ---
NURSE NOTES: Received patient on bed asleep. IV site intact and patent. Bed in low and locked position, call light in reach. Dressings dry and intact. No signs of respiratory distress or pain, room board updated. Will continue to monitor.
[2019-08-11 08:00] VITALS: BP 102/61
--- NOTE | 2019-08-11 08:19 | NUR ---
HAND-OFF: Report given to PACO Nelson.
--- NOTE | 2019-08-11 08:24 | General Progress Note ---
Assessment/Plan Assessment/Plan: S: I am ok O: Refusing to stay in bed. Pain is well controlled . PHYSICAL EXAMINATION: . HEAD AND NECK: multiple molars with plaques, Atraumatic and normocephalic. CHEST: Clear to auscultation. No wheezing. No crackles.HEART: S1 and S2. Regular rate and rhythm. No S3. No S4. ABDOMEN: Soft. No organomegaly.MUSCULOSKELETAL: Positive for bilater Charcot' s foot. Positive for stump of the prior tarsometatarsal resections. open wound in plantar aspect of left foot NEUROLOGIC: The patient is awake, alert, and oriented x3.PSYCHIATRIC: Mood and affect is normal LABORATORY DATA: Dated reviewed A/P: 1- Sever Sepsis 2. Acute cellulitis with or with out Acute OM of left foot. 2- DM- uncontrolled 3. Non compliance with medications 3- Charcot Foot- Left sided 4- HTN 5- Psych 6. Acute on Chronic KD Plan: Discussed the care with Podiatry. Agree with the MRI of the foot Nephrology , Surgeon notes are reviewd Current podiatry plan of care Subjective Allergies: Coded Allergies: METFORMIN (Verified Allergy, Unknown, 10/09/18) Vomiting Objective Last 24 Hour Vital Signs Date Time Temp Pulse Resp B/P (MAP) Pulse Ox O2 Delivery O2 Flow Rate FiO2 08/11/19 08:00 99.7 96 19 102/61 (75) 93 08/11/19 04:00 97.0 100 18 97/51 (66) 95 08/11/19 00:00 99.9 108 19 117/56 (76) 98 08/10/19 21:00 Room Air 08/10/19 21:00 100.8 107 20 150/76 (100) 98 08/10/19 16:00 98.5 90 19 136/74 (94) 98 08/10/19 12:00 98.1 84 18 131/69 (89) 98 08/10/19 09:11 126/63 08/10/19 09:00 Room Air Intake and Output 08/10/19 08/11/19 19:00 07:00 Intake Total 560 ml 560 ml Output Total 600 ml 450 ml Balance -40 ml 110 ml Intake Oral 560 ml 560 ml Output Urine Total 600 ml 450 ml # Voids 3 2 # Bowel Movements 1 Height (Feet): 6 Height (Inches): 1.00 Weight (Pounds): 215 Dexter Haas MD Aug 11, 2019 08:24
--- NOTE | 2019-08-11 09:35 | NUR ---
NURSE NOTES: Patient refused heparin scheduled dose. Education was provided, risk vs benefit explained. Patient still refused.
[2019-08-11] MEDS: Multivitamin w/Minerals tab ORAL SCH ×2 (09:44→18:07)
[2019-08-11] MEDS: Docusate 100mg cap ORAL SCH ×2 (09:44→18:00)
[2019-08-11] MEDS: Heparin 5000 units/ml inj SUBQ SCH ×3 (09:46→20:38)
--- NOTE | 2019-08-11 10:15 | Cardiology Report ---
APPROVED REPORT EXAM: Two-dimensional and M-mode echocardiogram with Doppler and color Doppler. INDICATION Congestive Heart Failure M-Mode DIMENSIONS IVSd1.2 (0.7-1.1cm)Left Atrium (MM)3.7 (1.6-4.0cm) LVDd5.1 (3.5-5.6cm)Aortic Root3.2 (2.0-3.7cm) PWd1.0 (0.7-1.1cm)Aortic Cusp Exc.1.8 (1.5-2.0cm) LVDs4.0 (2.5-4.0cm) PWs1.0 cm Normal left ventricular chamber size, systolic function and wall motion. Left ventricular ejection fraction is estimated to be 55%. All other cardiac chamber sizes are within normal limits. Focal aortic valve sclerosis with adequate cusp excursion. Thickened mitral valve leaflets with normal excursion. Mitral annulus and aortic root calcification. Pulmonic valve not well visualized. Normal tricuspid valve structure. Subcostal views not obtainable. A color flow and spectral Doppler study was performed and revealed: Mitral diastolic velocities suggest mild left ventricular diastolic dysfunction (Grade I). Trace tricuspid regurgitation. Tricuspid systolic velocities suggests peak right ventricular systolic pressure of 12 mmHg.
[2019-08-11] MEDS: Levemir Flexpen SUBQ SCH ×2 (10:29→18:09)
[2019-08-11] MEDS ORDERED: Meropenem 1 GM in NS 55 ML IVPB SCH (11:00)
[2019-08-11 11:56] LABS: BASOPHILS % (AUTO) 0.3 % (0.0-2.0); HEMATOCRIT 28.3 % (42.0-52.0); HEMOGLOBIN 9.4 G/DL (14.2-18.0); LYMPHOCYTES % (AUTO) 8.7 % (20.0-45.0); MEAN CORPUSCULAR VOLUME 84 FL (80-99); PLATELET COUNT 179 K/UL (150-450); RED BLOOD COUNT 3.39 M/UL (4.70-6.10); RED CELL DISTRIBUTION WIDTH 13.9 % (11.6-14.8); WHITE BLOOD COUNT 8.2 K/UL (4.8-10.8)
[2019-08-11 12:00] VITALS: BP 92/55
[2019-08-11 12:27] LABS: ALANINE AMINOTRANSFERASE 55 U/L (12-78); ALBUMIN/GLOBULIN RATIO 0.4 (1.0-2.7); ALKALINE PHOSPHATASE 118 U/L (46-116); ANION GAP 10 mmol/L (5-15); ASPARTATE AMINO TRANSFERASE 53 U/L (15-37); BILIRUBIN,TOTAL 0.6 MG/DL (0.2-1.0); BLOOD UREA NITROGEN 38 mg/dL (7-18); CALCIUM 8.7 MG/DL (8.5-10.1); CARBON DIOXIDE 23 MMOL/L (21-32); CHLORIDE 99 MMOL/L (98-107); CHOLESTEROL 107 MG/DL (< 200); CREATININE 3.3 MG/DL (0.55-1.30); FERRITIN 1020 NG/ML (8-388); GAMMA GLUTAMYL TRANSPEPTIDASE 86 U/L (5-85); HDL CHOLESTEROL 9 MG/DL (40-60); PHOSPHORUS 3.7 MG/DL (2.5-4.9); POTASSIUM 4.4 MMOL/L (3.5-5.1); SODIUM 132 MMOL/L (136-145); TRIGLYCERIDES 261 MG/DL (30-150)
[2019-08-11] MEDS ORDERED: Albumin Human 5% 500ml IV ONE (12:45)
--- NOTE | 2019-08-11 12:47 | Nephrology Progress Note ---
Assessment/Plan Problem List: (1) Renal failure (ARF), acute on chronic (2) Diabetic nephropathy (3) Cellulitis of lower extremity Assessment Acute on chronic renal failure- Diabetic Nephropathy DM OOC Anemia Electrolyte imbalance HTN Plan Keep BP and BS in check avoid nephrotoxics monitor renal parameters 2D echo Left ventricular ejection fraction is estimated to be 55%. COOPER kidney pending Urine studies NS and or Albumin bolus Subjective ROS Limited/Unobtainable: No Constitutional: Reports: malaise, weakness Objective Objective Last 24 Hour Vital Signs Date Time Temp Pulse Resp B/P (MAP) Pulse Ox O2 Delivery O2 Flow Rate FiO2 08/11/19 09:00 Room Air 08/11/19 08:00 99.7 96 19 102/61 (75) 93 08/11/19 04:00 97.0 100 18 97/51 (66) 95 08/11/19 00:00 99.9 108 19 117/56 (76) 98 08/10/19 21:00 Room Air 08/10/19 21:00 100.8 107 20 150/76 (100) 98 08/10/19 16:00 98.5 90 19 136/74 (94) 98 Intake and Output 08/10/19 08/11/19 19:00 07:00 Intake Total 560 ml 560 ml Output Total 600 ml 450 ml Balance -40 ml 110 ml Intake Oral 560 ml 560 ml Output Urine Total 600 ml 450 ml # Voids 3 2 # Bowel Movements 1 Laboratory Tests 08/11/19 11:35: White Blood Count 8.2, Red Blood Count 3.39L, Hemoglobin 9.4L, Hematocrit 28.3L , Mean Corpuscular Volume 84, Mean Corpuscular Hemoglobin 27.7, Mean Corpuscular Hemoglobin Concent 33.1, Red Cell Distribution Width 13.9, Platelet Count 179, Mean Platelet Volume 5.7L, Neutrophils (%) (Auto) 81.0H, Lymphocytes (%) (Auto) 8.7L, Monocytes (%) (Auto) 10.0, Eosinophils (%) (Auto) 0.0, Basophils (%) (Auto) 0.3, Sodium Level 132L, Potassium Level 4.4, Chloride Level 99, Carbon Dioxide Level 23, Anion Gap 10, Blood Urea Nitrogen 38H, Creatinine 3.3H, Estimat Glomerular Filtration Rate 19.9, Glucose Level 154#H, Hemoglobin A1c 10.3H, Uric Acid 5.8, Calcium Level 8.7, Phosphorus Level 3.7, Magnesium Level 1.8, Iron Level [Pending], Unsaturated Iron Binding [Pending], Ferritin 1020H, Total Bilirubin 0.6, Gamma Glutamyl Transpeptidase 86H, Aspartate Amino Transf (AST/SGOT) 53H, Alanine Aminotransferase (ALT/SGPT) 55, Alkaline Phosphatase 118H, Troponin I [Pending], C-Reactive Protein, Quantitative [Pending], Pro-B-Type Natriuretic Peptide 4530H, Total Protein 6.9 , Albumin 2.0L, Globulin 4.9, Albumin/Globulin Ratio 0.4L, Triglycerides Level 261H, Cholesterol Level 107, LDL Cholesterol 30, HDL Cholesterol 9L, Cholesterol /HDL Ratio 11.9H, Folate [Pending], Thyroid Stimulating Hormone (TSH) 0.613, Free Thyroxine 0.64L, Free Triiodothyronine 0.9L Height (Feet): 6 Height (Inches): 1.00 Weight (Pounds): 215 General Appearance: no apparent distress Cardiovascular: tachycardia Respiratory/Chest: decreased breath sounds Abdomen: distended Objective no change Ernesto Frost MD Aug 11, 2019 12:47
--- NOTE | 2019-08-11 12:48 | NUR ---
CHARGE NURSE NOTE: Troponin 0.246. was called, message left.
--- NOTE | 2019-08-11 13:02 | NUR ---
NURSE NOTES: MD Haas called back and stated to notify MD Augustine of elevated troponin level. Message was left with MD Augustine office.
--- NOTE | 2019-08-11 13:11 | NUR ---
NURSE NOTES: Patient off floor for procedure.
[2019-08-11 13:36] LABS: % IRON SATURATION 6 % (15-50); IRON 9 ug/dL (50-175); TOTAL IRON BINDING CAPACITY 140 ug/dL (250-450)
--- NOTE | 2019-08-11 14:10 | NUR ---
08/11...CONCERNING MRI, PT CAN NOT STAY AWAKE. BEING SLEEPLY, HE DOES NOT FOLLOW INSTRUCTIONS TO STAY STILL AND CONTINUES TO PULL HIS FOOT OUT OF THE COIL. HE NEEDS TO BE STILL FOR AN HOUR TO COMPLETE BOTH SCANS. IF PATIENT CAN STAY AWAKE AND FOLLOW COMMANDS TO STAY STILL, WE CAN TRY AGAIN. SUNDAY 14:08
--- NOTE | 2019-08-11 15:00 | Infectious Diseases Prog Note ---
Assessment/Plan Problems: (1) Acute on chronic osteomyelitis Assessment & Plan: of the left foot , S/P I&D recently by corporate statistical financial analyst, unfortunately no tissue or bone biopsy was done on his last admission to guide antibiotics treatment due to the chronicity of his left foot osteomyelitis and the need for intermediate school teacher oral suppression after knowing the causing organisms with bone culture, will discuss with corporate statistical financial analyst the need for bone biopsy and culture . 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 monitor ck weekly (2) Renal failure (ARF), acute on chronic Assessment & Plan: avoid nephrotoxics , continue hydration, close monitoring of renal function, renal is following (3) Poorly controlled diabetes mellitus Assessment & Plan: recommend tight glycemic control to keep blood glucose between 100-140 (4) Diabetic foot infection Assessment & Plan: already on wide spectrum antibiotics , keep leg elevated while in bed, tight glycemic control (5) Sepsis Assessment & Plan: with gram negative rods , suspect source is his left foot , will upgrade his antibiotics coverage to meropenem and daptomycin pending final culture results . may need surgical debridement of the left foot for source control and possible wound vac Subjective Constitutional: Reports: fever, fatigue, anorexia HEENT: Reports: visual change Respiratory: Reports: no symptoms Breasts: Reports: no symptoms Cardiovascular: Reports: no symptoms Gastrointestinal/Abdominal: Reports: no symptoms Genitourinary: Reports: no symptoms Neurologic: Reports: weakness, confusion Psychiatric: Reports: anxiety Skin: Reports: ulcer Endocrine: Reports: no symptoms Hematologic: Reports: no symptoms Musculoskeletal: Reports: swelling Allergies: Coded Allergies: METFORMIN (Verified Allergy, Unknown, 10/09/18) Vomiting Objective Vital Signs Last 24 Hour Vital Signs Date Time Temp Pulse Resp B/P (MAP) Pulse Ox O2 Delivery O2 Flow Rate FiO2 08/11/19 12:00 100.5 90 19 92/55 (67) 94 08/11/19 09:00 Room Air 08/11/19 08:00 99.7 96 19 102/61 (75) 93 08/11/19 04:00 97.0 100 18 97/51 (66) 95 08/11/19 00:00 99.9 108 19 117/56 (76) 98 08/10/19 21:00 Room Air 08/10/19 21:00 100.8 107 20 150/76 (100) 98 08/10/19 16:00 98.5 90 19 136/74 (94) 98 Height (Feet): 6 Height (Inches): 1.00 Weight (Pounds): 215 General Appearance: WD/WN, no acute distress HEENT: normocephalic, atraumatic, anicteric, mucous membranes moist, PERRL, EOMI, pharynx normal, supple, no JVD Respiratory/Chest: chest wall non-tender, lungs clear, normal breath sounds, no respiratory distress, no accessory muscle use, decreased breath sounds Cardiovascular: normal peripheral pulses, normal rate, regular rhythm, no gallop/murmur, no JVD Abdomen: normal bowel sounds, soft, non tender, no organomegaly, non distended , no mass, no scars Extremities: no cyanosis, no clubbing Skin: no rash, lesions, ulcers - mainly on his left foot sole deep probing to the bone , no draining or foul smell Neurologic/Psychiatric: steam fitter helper II-XII grossly normal, alert, responsive Lymphatic: no neck adenopathy, no groin adenopathy Musculoskeletal: normal muscle bulk, no effusion Microbiology Date/Time Source Procedure Growth Status 08/10/19 04:05 Blood Blood Culture - Preliminary NO GROWTH AFTER 24 HOURS Resulted 08/10/19 03:50 Blood Blood Culture - Preliminary Gram Negative Kofi Resulted 08/10/19 04:30 Wound Gram Stain - Final Resulted 08/10/19 04:30 Wound Culture - Preliminary Gram Negative Bacillus 1 Gram Negative Bacillus 2 Resulted 08/10/19 04:30 Other(Specify in comment) Gram Stain - Final Resulted 08/10/19 04:30 Wound Culture - Preliminary Gram Negative Bacillus 1 Resulted 08/10/19 04:30 Rectum Received Laboratory Tests Test 08/11/19 11:35 White Blood Count 8.2 K/UL (4.8-10.8) Red Blood Count 3.39 M/UL (4.70-6.10) L Hemoglobin 9.4 G/DL (14.2-18.0) L Hematocrit 28.3 % (42.0-52.0) L Mean Corpuscular Volume 84 FL (80-99) Mean Corpuscular Hemoglobin 27.7 PG (27.0-31.0) Mean Corpuscular Hemoglobin Concent 33.1 G/DL (32.0-36.0) Red Cell Distribution Width 13.9 % (11.6-14.8) Platelet Count 179 K/UL (150-450) Mean Platelet Volume 5.7 FL (6.5-10.1) L Neutrophils (%) (Auto) 81.0 % (45.0-75.0) H Lymphocytes (%) (Auto) 8.7 % (20.0-45.0) L Monocytes (%) (Auto) 10.0 % (1.0-10.0) Eosinophils (%) (Auto) 0.0 % (0.0-3.0) Basophils (%) (Auto) 0.3 % (0.0-2.0) Sodium Level 132 MMOL/L (136-145) L Potassium Level 4.4 MMOL/L (3.5-5.1) Chloride Level 99 MMOL/L (98-107) Carbon Dioxide Level 23 MMOL/L (21-32) Anion Gap 10 mmol/L (5-15) Blood Urea Nitrogen 38 mg/dL (7-18) H Creatinine 3.3 MG/DL (0.55-1.30) H Estimat Glomerular Filtration Rate 19.9 mL/min (>60) Glucose Level 154 MG/DL (74-106) #H Hemoglobin A1c 10.3 % (4.3-6.0) H Uric Acid 5.8 MG/DL (2.6-7.2) Calcium Level 8.7 MG/DL (8.5-10.1) Phosphorus Level 3.7 MG/DL (2.5-4.9) Magnesium Level 1.8 MG/DL (1.8-2.4) Iron Level 9 ug/dL (50-175) L Total Iron Binding Capacity 140 ug/dL (250-450) L Percent Iron Saturation 6 % (15-50) L Unsaturated Iron Binding 131 ug/dL (112-346) Ferritin 1020 NG/ML (8-388) H Total Bilirubin 0.6 MG/DL (0.2-1.0) Gamma Glutamyl Transpeptidase 86 U/L (5-85) H Aspartate Amino Transf (AST/SGOT) 53 U/L (15-37) H Alanine Aminotransferase (ALT/SGPT) 55 U/L (12-78) Alkaline Phosphatase 118 U/L (46-116) H Troponin I 0.246 ng/mL (0.000-0.056) C-Reactive Protein, Quantitative 63.7 mg/dL (0.00-0.90) H Pro-B-Type Natriuretic Peptide 4530 pg/mL (0-125) H Total Protein 6.9 G/DL (6.4-8.2) Albumin 2.0 G/DL (3.4-5.0) L Globulin 4.9 g/dL Albumin/Globulin Ratio 0.4 (1.0-2.7) L Triglycerides Level 261 MG/DL (30-150) H Cholesterol Level 107 MG/DL (< 200) LDL Cholesterol 30 mg/dL (<100) HDL Cholesterol 9 MG/DL (40-60) L Cholesterol/HDL Ratio 11.9 (3.3-4.4) H Vitamin B12 Level 537 PG/ML (193-986) Folate 45.9 NG/ML (8.6-58.9) Thyroid Stimulating Hormone (TSH) 0.613 uiU/mL (0.358-3.740) Free Thyroxine 0.64 NG/DL (0.76-1.46) L Free Triiodothyronine 0.9 pg/mL (2.3-4.2) L Current Medications Medications (Trade) Dose Ordered Sig/Aylin Route PRN Reason Start Time Stop Time Status Last Admin Dose Admin Acetaminophen (Tylenol) 650 mg Q4H PRN ORAL Mild Pain/Temp > 100.5 08/10/19 08:15 09/09/19 08:14 Atorvastatin Calcium (Lipitor) 40 mg BEDTIME ORAL 08/10/19 21:00 09/09/19 20:59 08/10/19 21:30 Bisacodyl (Dulcolax) 10 mg DAILY PRN RECTAL Constipation 08/10/19 08:15 09/09/19 08:14 Daptomycin 970 mg/ Sodium Chloride 55 ml @ 100 mls/hr Q24H IV 08/11/19 21:00 08/18/19 20:59 Dextrose (Dextrose 50%) 25 ml Q30M PRN IV Hypoglycemia 08/10/19 07:15 09/09/19 07:14 Dextrose (Dextrose 50%) 50 ml Q30M PRN IV Hypoglycemia 08/10/19 07:15 09/09/19 07:14 Docusate Sodium (Colace) 100 mg TWICE A DAY ORAL 08/10/19 09:00 09/09/19 08:59 08/11/19 09:44 Escitalopram Oxalate (Lexapro) 10 mg DAILY ORAL 08/10/19 09:00 09/09/19 08:59 08/11/19 09:44 Famotidine (Pepcid) 20 mg DAILY@0630 ORAL 08/11/19 06:30 09/10/19 06:29 08/11/19 06:46 Fish Oil (Fish Oil) 1,000 mg BID ORAL 08/11/19 18:00 09/10/19 17:59 Gabapentin (Neurontin) 300 mg BID ORAL 08/10/19 09:00 09/09/19 08:59 08/11/19 09:44 Gabapentin (Neurontin) 600 mg BEDTIME ORAL 08/10/19 21:00 09/09/19 20:59 08/10/19 21:31 Heparin Sodium (Porcine) (Heparin 5000 units/ml) 5,000 units EVERY 12 HOURS SUBQ 08/10/19 09:00 09/09/19 08:59 08/10/19 21:49 Hydralazine HCl (Apresoline) 25 mg Q4H PRN ORAL bp over 160 syst 08/10/19 11:45 09/09/19 11:44 Insulin Aspart (NovoLOG) BEFORE MEALS AND HS SUBQ 08/10/19 11:30 09/09/19 11:29 08/11/19 11:36 Insulin Aspart (NovoLOG) 20 units NOVOTIAC SUBQ 08/11/19 06:30 09/09/19 11:49 08/11/19 07:03 Insulin Detemir (Levemir) 50 units BID SUBQ 08/11/19 09:00 09/09/19 08:59 08/11/19 10:29 Meropenem 1 gm/ Sodium Chloride 55 ml @ 110 mls/hr Q12HR@1100,2300 IVPB 08/11/19 11:00 08/16/19 10:59 08/11/19 11:16 Multivitamins Therapeutic (Therapeutic Multivitamin) 1 ea BID ORAL 08/10/19 09:00 09/09/19 08:59 08/11/19 09:44 Quetiapine Fumarate (SEROquel) 100 mg Q12HR ORAL 08/10/19 09:00 09/09/19 08:59 08/11/19 09:44 Tamsulosin HCl (Flomax) 0.4 mg BEDTIME ORAL 08/10/19 21:00 09/09/19 20:59 08/10/19 21:30 Kwasi Martinez M.D. Aug 11, 2019 15:00
--- NOTE | 2019-08-11 15:40 | NUR ---
INTERQUAL CRITERIA MET
--- NOTE | 2019-08-11 15:48 | NUR ---
CASE MANAGEMENT: REVIEW 48 YR OL MALE JOHANNE FROM [facility] PMH: DM CC: FEVER SI: SEPSIS, RENAL FAILURE 98.1 82 18 82/54 92%RA NA+129; BUN 34; CRE 2.6; ALK PHOS 167; BG 342; WBC 11.5; RBC 4.35; PT/PTT 11.9/ 36; ; H/H 12.0/ 36.6 IS: BL CX IV VANCOMYCIN X1 IV DAPTOMYCIN X1 IVF NS BOLUS X2 PT/OT EVAL : TO 4E MED/SURG PLAN: ID AND SURGERY CONSULT MRI FOOT ECHO WOUND CX CASE MANAGEMENT: REVIEW 08/11/19 SI: SEPSIS, RENAL FAILURE 99.7 96 19 102/61 93% RA TROP 0.246; NA 132, BUN 38; CR 3.3; TIBC 140; FE 9; TIBC 140; FERR 1020; ALK PHOS 118;AST 53; [id number], RBC 3.39; H/H 9.4/ 28.3; IS: IV DAPTOMYCIN Q24 IV MEROPENEM Q12 LEVEMIR SQ BID LIPITOR PO HS NEURONTIN PO HS FLOMAX PO HS HEPARIN SQ Q12 : TO 4E MED/SURG DCP: RETURN TO [facility]
[2019-08-11 16:00] VITALS: BP 111/55
--- NOTE | 2019-08-11 16:31 | NUR ---
CHARGE NURSE NOTE: Abnormal ECG and troponin 0.225 (second result) stat results reported to . He asked to notify . Omar catalan RN called twice, no respond yet. CN notified Nursing heat treat supervisor.
--- NOTE | 2019-08-11 16:44 | Surgery Progress Note ---
Surgery Progress Note Subjective Additional Comments no acute events pending MRI leukocytosis resolved labs noted Objective Last 24 Hour Vital Signs Date Time Temp Pulse Resp B/P (MAP) Pulse Ox O2 Delivery O2 Flow Rate FiO2 08/11/19 12:00 100.5 90 19 92/55 (67) 94 08/11/19 09:00 Room Air 08/11/19 08:00 99.7 96 19 102/61 (75) 93 08/11/19 04:00 97.0 100 18 97/51 (66) 95 08/11/19 00:00 99.9 108 19 117/56 (76) 98 08/10/19 21:00 Room Air 08/10/19 21:00 100.8 107 20 150/76 (100) 98 I&O Intake and Output 08/10/19 08/11/19 19:00 07:00 Intake Total 560 ml 560 ml Output Total 600 ml 450 ml Balance -40 ml 110 ml Intake Oral 560 ml 560 ml Output Urine Total 600 ml 450 ml # Voids 3 2 # Bowel Movements 1 Dressing: saturated Wound: other Drains: other Cardiovascular: RSR Respiratory: decreased breath sounds Abdomen: soft, present bowel sounds, non-distended Extremities: edema, tenderness, no cyanosis, other Laboratory Tests Test 08/11/19 11:35 08/11/19 15:30 White Blood Count 8.2 K/UL (4.8-10.8) Red Blood Count 3.39 M/UL (4.70-6.10) L Hemoglobin 9.4 G/DL (14.2-18.0) L Hematocrit 28.3 % (42.0-52.0) L Mean Corpuscular Volume 84 FL (80-99) Mean Corpuscular Hemoglobin 27.7 PG (27.0-31.0) Mean Corpuscular Hemoglobin Concent 33.1 G/DL (32.0-36.0) Red Cell Distribution Width 13.9 % (11.6-14.8) Platelet Count 179 K/UL (150-450) Mean Platelet Volume 5.7 FL (6.5-10.1) L Neutrophils (%) (Auto) 81.0 % (45.0-75.0) H Lymphocytes (%) (Auto) 8.7 % (20.0-45.0) L Monocytes (%) (Auto) 10.0 % (1.0-10.0) Eosinophils (%) (Auto) 0.0 % (0.0-3.0) Basophils (%) (Auto) 0.3 % (0.0-2.0) Sodium Level 132 MMOL/L (136-145) L Potassium Level 4.4 MMOL/L (3.5-5.1) Chloride Level 99 MMOL/L (98-107) Carbon Dioxide Level 23 MMOL/L (21-32) Anion Gap 10 mmol/L (5-15) Blood Urea Nitrogen 38 mg/dL (7-18) H Creatinine 3.3 MG/DL (0.55-1.30) H Estimat Glomerular Filtration Rate 19.9 mL/min (>60) Glucose Level 154 MG/DL (74-106) #H Hemoglobin A1c 10.3 % (4.3-6.0) H Uric Acid 5.8 MG/DL (2.6-7.2) Calcium Level 8.7 MG/DL (8.5-10.1) Phosphorus Level 3.7 MG/DL (2.5-4.9) Magnesium Level 1.8 MG/DL (1.8-2.4) Iron Level 9 ug/dL (50-175) L Total Iron Binding Capacity 140 ug/dL (250-450) L Percent Iron Saturation 6 % (15-50) L Unsaturated Iron Binding 131 ug/dL (112-346) Ferritin 1020 NG/ML (8-388) H Total Bilirubin 0.6 MG/DL (0.2-1.0) Gamma Glutamyl Transpeptidase 86 U/L (5-85) H Aspartate Amino Transf (AST/SGOT) 53 U/L (15-37) H Alanine Aminotransferase (ALT/SGPT) 55 U/L (12-78) Alkaline Phosphatase 118 U/L (46-116) H Troponin I 0.246 ng/mL (0.000-0.056) 0.225 ng/mL (0.000-0.056) C-Reactive Protein, Quantitative 63.7 mg/dL (0.00-0.90) H Pro-B-Type Natriuretic Peptide 4530 pg/mL (0-125) H Total Protein 6.9 G/DL (6.4-8.2) Albumin 2.0 G/DL (3.4-5.0) L Globulin 4.9 g/dL Albumin/Globulin Ratio 0.4 (1.0-2.7) L Triglycerides Level 261 MG/DL (30-150) H Cholesterol Level 107 MG/DL (< 200) LDL Cholesterol 30 mg/dL (<100) HDL Cholesterol 9 MG/DL (40-60) L Cholesterol/HDL Ratio 11.9 (3.3-4.4) H Vitamin B12 Level 537 PG/ML (193-986) Folate 45.9 NG/ML (8.6-58.9) Thyroid Stimulating Hormone (TSH) 0.613 uiU/mL (0.358-3.740) Free Thyroxine 0.64 NG/DL (0.76-1.46) L Free Triiodothyronine 0.9 pg/mL (2.3-4.2) L Plan Problems: (1) Osteomyelitis of ankle or foot, left, acute Assessment & Plan: Left Foot plain films FINDINGS: Bones joints: No acute fracture. No dislocation. Surgical absence of the fifth phalanges and distal half of the fifth metatarsal bone. Marked deformity in the mid foot and base of the first metatarsal bone likely posttraumatic post surgical change. Soft tissues: Soft tissue swelling about the plantar aspect of the foot. No radiopaque foreign body. IMPRESSION: 1. Marked deformity in the mid foot likely postsurgical posttraumatic change. 2. No gross acute bony abnormality. 3. Status post resection of the fifth phalanges as described Pending MRI (2) Foot ulcer due to secondary DM (3) Cellulitis of lower extremity Assessment & Plan: This is a 48-year-old male with known history of prior infections and surgical mention of his lower extremity Charcot's foot who is been recovering in a nursing facility until recently noted to have more edema cellulitis and drainage. Leukocytosis, HD stable, renal insufficiency, dehydration. Admitted for further care and management IV antibiotics as per infectious disease Podiatry consultation appreciated Trend labs MRI of right and left lower extremity ordered and pending completion We will continue with local wound care and antibiotics. Will discuss with podiatry potential necessity for further surgical intervention Thank you for allowing me to participate in patient's care will continue to follow with recognitions Melquiades Rush Aug 11, 2019 16:44
--- NOTE | 2019-08-11 17:06 | Diagnostic Imaging Report ---
Indication: Acute renal failure Technique: Grayscale and duplex images of the kidneys, retroperitoneum, and bladder were obtained. Comparison: none Findings: Right kidney measures 11.6 cm in length. Left kidney measures 11.2 cm in length. Both kidneys demonstrate normal echogenicity. No hydronephrosis. No focal abnormality. Normal inferior vena cava. Bladder is normal. Impression: negative.
--- NOTE | 2019-08-11 17:15 | NUR ---
NURSING DENTAL OFFICE ASSISTANT NOTE: Charge Nurse Guerda Ruiz notified me that she has been trying to contact Dr. Keyana Augustine for a Cardiology Consult, per Dr. Haas for elevated Troponin. I called Dr. Augustine's office at 1650 and spoke to "Kaitlin", who said she would have Dr. Augustine call [facility] directly and ask for Charge Nurse. I provided Kaitlin with direct phone number to [facility]
--- NOTE | 2019-08-11 17:40 | NUR ---
NURSING BUSINESS ADMINISTRATION PROFESSOR NOTE: Per Charge Nurse, Guerda, no return call from Dr. Augustine. I called his office number again at [phone] and there was a prompt to leave an "urgent message" from a hospital. I left a message asking for Dr. Augustine to call [facility] regarding an urgent Cardiology Consult for patient per Dr. Haas's request for elevated Troponin of 0.225.
--- NOTE | 2019-08-11 17:45 | NUR ---
NURSING SPACE AND STORAGE CLERK NOTE: Dr. Augustine returned phone call to [facility] per Charge Nurse Guerda Karimi
--- NOTE | 2019-08-11 17:50 | NUR ---
NURSE NOTES: MD Augustine called back and was advised of the troponin draws. No new orders. Stated he will review the diagnostics. Charge nurse Guerda made aware.
--- NOTE | 2019-08-11 18:00 | Consultation ---
DATE OF CONSULTATION: 08/10/2019 INFECTIOUS DISEASE CONSULTATION CONSULTING PHYSICIAN: Kwasi Martinez M.D. REQUESTING PHYSICIAN: Dexter Haas M.D. REASON FOR CONSULTATION: Chronic left foot nonhealing wound with osteomyelitis, recommendation for antibiotics treatment and right foot developing wound with possible sepsis. HISTORY OF PRESENT ILLNESS: The patient is a 48-year-old poorly compliant male with past medical history of diabetes, poorly controlled with complications, chronic osteomyelitis of the left metatarsal bone and left foot chronic nonhealing wound with Charcot joint was recently admitted to [facility] about a month ago and was diagnosed with osteomyelitis and started on IV antibiotics treatment course of six-week for his left foot fourth metatarsal base osteomyelitis, was sent to [facility] for poorly controlled blood sugar and fever, which was high at the [facility] around 103. The patient's blood sugar also was out of control. His feet has been draining from the wound mainly on the left side and right foot has developed a blister with wound, but no significant drainage. The patient was hypertensive in the emergency room concerning for sepsis. His white count was elevated so he was started on vancomycin and Zosyn by the admitting physician and Infectious Disease consultation was requested for antibiotics treatment and further care. REVIEW OF SYSTEMS: A 14-point of systems reviewed were all negative apart from the one I mentioned above in my H and P. PAST MEDICAL HISTORY: Significant for diabetes, hypertension, chronic renal failure, left foot diabetic wound ulcer chronic, and left metatarsal osteomyelitis. PAST SURGICAL HISTORY: He had I and D of his left foot. FAMILY HISTORY: Noncontributory. SOCIAL HISTORY: The patient lives at the [facility]. No recent drugs, tobacco, or alcohol. He is retired and he is on disability. ALLERGIES: He is allergic to metformin. MEDICATIONS: The patient was started on vancomycin and Zosyn dosed per pharmacy. For the rest of his medications, please refer to MAR. LABORATORY AND DIAGNOSTIC DATA: Labs showed white count of 11.5, hemoglobin of 12, platelet count of 254. BUN of 34, creatinine of 2.6. AST of 36 and ALT of 63. Microbiology, blood culture and wound culture are pending. Imaging, the left foot x-ray showed marked deformity in the mid foot likely postsurgical posttraumatic related. No gross acute bony abnormalities and status post resection of the fifth phalanx. PHYSICAL EXAMINATION: VITAL SIGNS: Temperature 98.5, pulse 90, respirations 20, blood pressure 136/74, saturation 98% on room air. GENERAL: Middle-aged male, lying in bed, awake, lethargic, but responsive, not in acute distress. HEENT: Normocephalic, atraumatic. Dry oral mucosa. No exudate or thrush. NECK: Supple. No lymphadenopathy. No JVD. CARDIOVASCULAR: Regular rate and rhythm. S1, S2 normal. No murmur. LUNGS: Clear bilaterally. No wheezing or rhonchi. Normal breathing efforts. ABDOMEN: Soft, nontender, nondistended. Normal bowel sounds. No hepatosplenomegaly or ascites. EXTREMITIES: Trace edema on both feet with swelling mainly on the left. Large wound on the left foot at the sole area measured about 3 x 4 cm probing down to the bone. No significant draining or pus or foul smell. Right foot has blister with wound not draining, no foul smell. Skin is red around the blister area. ASSESSMENT AND RECOMMENDATION: 1. Acute on chronic osteomyelitis of the left foot, status post recent I and D by storage garage attendant on his previous admission. Unfortunately, no tissue or bone biopsy was done at that time to guide antibiotics treatment due to his chronicity of his left foot osteomyelitis and the need for long-term oral suppression after knowing the causing organism with bone culture. We will discuss this with storage garage attendant on this admission. Based on the MRI result, which is pending for possible bone biopsy and culture to guide his treatment course. We will start daptomycin and stop vancomycin since his wound recently grew VRE in the rehabilitation center and we will continue Zosyn for now. Monitor CK level weekly while on daptomycin and continue local wound care as per storage garage attendant. 2. Renal failure, acute on chronic, avoid nephrotoxic, stop vancomycin, continue hydration. Close monitor of renal function. Renal team is following. 3. Poorly controlled diabetes mellitus. Recommend tight glycemic control to keep blood glucose between 100 to 140 to achieve good recovery of his wound. 4. Diabetic foot infection. The patient already on wide-spectrum antibiotics. Continue local wound care with tight glycemic control as needed. Thank you for the consult. ID will continue to follow. Kwasi Martinez M.D. DR: MISA JOB#: [id number] CC:
[2019-08-11] MEDS ORDERED: GABAPENTIN300 MG ORAL (18:43)
--- NOTE | 2019-08-11 19:15 | NUR ---
NURSE NOTES: Received a report from PACO Nelson. Pt is in stable condition. Confused. On room air. No c/o pain/discomfort. IV site is patent and intact. Bed in lowest position. Bed alarm is on. Call light within reach. Will continue to monitor.
[2019-08-11 20:00] VITALS: BP 114/70
[2019-08-11] MEDS: Tamsulosin 0.4mg cap ORAL SCH (20:47)
[2019-08-11] MEDS: Atorvastatin 20mg tab ORAL SCH (20:47)
[2019-08-11] MEDS ORDERED: NS IV SCH (21:00)
[2019-08-11] MEDS ORDERED: DAPTOMYCIN IV SCH (21:00)
--- NOTE | 2019-08-11 22:20 | NUR ---
NURSE NOTES: Received a transferred patient from ,d/t TELE overflow,report received from PACO Crespo.Patient tolerated r/air well,pt lethargic at this time,confused,lungs clear to auscultation,BS active in all quadrants,cardiac nurse practitioner applied,SR on monitor,IV asymptomatic,intact on R f/arm ,bed secured in a low safety position,call light within a reach,belongings list signed,will continue to monitor and follow POC.
--- NOTE | 2019-08-11 22:37 | NUR ---
HAND-OFF: Report given to PACO Pelayo.
[2019-08-11] MEDS ORDERED: HydrALAZINE 25mg tab ORAL PRN (23:45)
[2019-08-12] VITALS: BP 105/64
--- NOTE | 2019-08-12 | NUR ---
NURSE NOTES: Pt refused to insert F/cath,became agitated.Bladder scan done no urine shows.Charge nurse aware.
[2019-08-12] MEDS: Meropenem 1 GM in NS 55 ML IVPB SCH ×3 (00:32→23:00)
--- NOTE | 2019-08-12 00:45 | Consultation ---
DATE OF CONSULTATION: 08/11/2019 HISTORY OF PRESENT ILLNESS: This is a 48-year-old male, who is well known to us from the previous encounter. The patient was nonresponse, confused and unable to answer any questions. The patient has been started on Seroquel 200 b.i.d. Upon admission to the hospital, the patient was unable to provide any history. PAST PSYCHIATRIC HISTORY: Significant for schizophrenia. PAST MEDICAL HISTORY: Significant for failure, diabetic neuropathy, diabetes mellitus, and osteomyelitis. ALLERGIES: Metformin. SUBSTANCE ABUSE HISTORY: No known history of illicit drug use or alcohol. MENTAL STATUS EXAM: The patient is lethargic. Mood was neutral. Affect is flat. Eyes closed. Thought process, there is a paucity of thought content. Cognition is impaired. Insight and judgment is non-existent. ASSESSMENT: [place] I Acute encephalopathy. Schizoaffective disorder. [place] II Deferred. [place] III Altered mental status. [place] IV Low. [place] V 10. PLAN: 1. We will decrease the Seroquel to 50 mg b.i.d. 2. sedated or asleep. 3. We will continue to follow. Olena Diaz M.D. DR: RADHA JOB#: [id number] CC: JOVON
[2019-08-12 05:25] LABS: BASOPHILS % (AUTO) 0.3 % (0.0-2.0); EOSINOPHILS % (AUTO) 0.5 % (0.0-3.0); HEMATOCRIT 28.3 % (42.0-52.0); HEMOGLOBIN 9.3 G/DL (14.2-18.0); LYMPHOCYTES % (AUTO) 8.8 % (20.0-45.0); MEAN CORPUSCULAR VOLUME 83 FL (80-99); MONOCYTES % (AUTO) 7.4 % (1.0-10.0); PLATELET COUNT 178 K/UL (150-450); RED BLOOD COUNT 3.41 M/UL (4.70-6.10); RED CELL DISTRIBUTION WIDTH 14.3 % (11.6-14.8); WHITE BLOOD COUNT 7.6 K/UL (4.8-10.8)
[2019-08-12 05:50] LABS: ALANINE AMINOTRANSFERASE 96 U/L (12-78); ALBUMIN 2.2 G/DL (3.4-5.0); ALBUMIN/GLOBULIN RATIO 0.4 (1.0-2.7); ALKALINE PHOSPHATASE 141 U/L (46-116); ANION GAP 15 mmol/L (5-15); ASPARTATE AMINO TRANSFERASE 115 U/L (15-37); BILIRUBIN,TOTAL 0.6 MG/DL (0.2-1.0); BLOOD UREA NITROGEN 46 mg/dL (7-18); CALCIUM 8.5 MG/DL (8.5-10.1); CARBON DIOXIDE 20 MMOL/L (21-32); CHLORIDE 98 MMOL/L (98-107); CREATININE 4.5 MG/DL (0.55-1.30); PHOSPHORUS 4.6 MG/DL (2.5-4.9); POTASSIUM 4.2 MMOL/L (3.5-5.1); SODIUM 133 MMOL/L (136-145)
--- NOTE | 2019-08-12 06:00 | NUR ---
NURSE NOTES: aware regarding pt's condition,no new orders
[2019-08-12] MEDS: NovoLOG Insulin Flexpen SUBQ SCH ×6 (06:30→21:00)
[2019-08-12] MEDS ORDERED: NovoLOG Insulin Flexpen SUBQ SCH ×2 (06:30→18:40)
--- NOTE | 2019-08-12 06:44 | General Progress Note ---
Assessment/Plan Problem List: (1) Foot ulcer due to secondary DM ICD Codes: E13.621 - Other specified diabetes mellitus with foot ulcer; L97.509 - Non-pressure chronic ulcer of other part of unspecified foot with unspecified severity SNOMED: 7215488, 721637694 (2) Diabetic nephropathy ICD Codes: E11.21 - Type 2 diabetes mellitus with diabetic nephropathy SNOMED: 39959217, 341503435 (3) Poorly controlled diabetes mellitus ICD Codes: E11.65 - Type 2 diabetes mellitus with hyperglycemia SNOMED: 70797920, 756912167 (4) MDD (major depressive disorder), recurrent episode, moderate ICD Codes: F33.1 - Major depressive disorder, recurrent, moderate SNOMED: 90702893, 230547670 Assessment/Plan: continue Levemir 50 units bid change Novolog to 15 units ac tid - hold if not eating continue NISS ac / hs Subjective Allergies: Coded Allergies: METFORMIN (Verified Allergy, Unknown, 10/09/18) Vomiting All Systems: reviewed and negative except above Subjective events noted transferred to [facility] he is upset about attempt for urinary catheter placement Item Value Date Time Bedside Blood Glucose 114 mg/dl 08/12/19 0630 Bedside Blood Glucose 173 mg/dl H 08/11/19 2100 Bedside Blood Glucose 153 mg/dl H 08/11/19 1809 Bedside Blood Glucose 158 mg/dl H 08/11/19 1150 Bedside Blood Glucose 162 mg/dl H 08/11/19 1029 Bedside Blood Glucose 162 mg/dl H 08/11/19 0649 Objective Last 24 Hour Vital Signs Date Time Temp Pulse Resp B/P (MAP) Pulse Ox O2 Delivery O2 Flow Rate FiO2 08/12/19 03:49 101 08/12/19 00:00 97.7 74 16 105/64 (78) 97 08/11/19 23:35 88 08/11/19 21:00 Room Air 08/11/19 20:00 99.6 92 20 114/70 (85) 95 08/11/19 18:42 100.0 08/11/19 16:00 99.8 89 15 111/55 (73) 94 08/11/19 12:00 100.5 90 19 92/55 (67) 94 08/11/19 09:00 Room Air 08/11/19 08:00 99.7 96 19 102/61 (75) 93 Intake and Output 08/11/19 08/12/19 18:59 06:59 Intake Total 555 ml 605 ml Balance 555 ml 605 ml Intake Oral 550 ml IV Total 555 ml 55 ml # Voids 1 # Bowel Movements 3 Laboratory Tests 08/11/19 11:35: White Blood Count 8.2, Red Blood Count 3.39L, Hemoglobin 9.4L, Hematocrit 28.3L , Mean Corpuscular Volume 84, Mean Corpuscular Hemoglobin 27.7, Mean Corpuscular Hemoglobin Concent 33.1, Red Cell Distribution Width 13.9, Platelet Count 179, Mean Platelet Volume 5.7L, Neutrophils (%) (Auto) 81.0H, Lymphocytes (%) (Auto) 8.7L, Monocytes (%) (Auto) 10.0, Eosinophils (%) (Auto) 0.0, Basophils (%) (Auto) 0.3, Sodium Level 132L, Potassium Level 4.4, Chloride Level 99, Carbon Dioxide Level 23, Anion Gap 10, Blood Urea Nitrogen 38H, Creatinine 3.3H, Estimat Glomerular Filtration Rate 19.9, Glucose Level 154#H, Hemoglobin A1c 10.3H, Uric Acid 5.8, Calcium Level 8.7, Phosphorus Level 3.7, Magnesium Level 1.8, Iron Level 9L, Total Iron Binding Capacity 140L, Percent Iron Saturation 6L, Unsaturated Iron Binding 131, Ferritin 1020H, Total Bilirubin 0.6, Gamma Glutamyl Transpeptidase 86H, Aspartate Amino Transf (AST/ SGOT) 53H, Alanine Aminotransferase (ALT/SGPT) 55, Alkaline Phosphatase 118H, Troponin I 0.246H, C-Reactive Protein, Quantitative 63.7H, Pro-B-Type Natriuretic Peptide 4530H, Total Protein 6.9, Albumin 2.0L, Globulin 4.9, Albumin/Globulin Ratio 0.4L, Triglycerides Level 261H, Cholesterol Level 107, LDL Cholesterol 30, HDL Cholesterol 9L, Cholesterol/HDL Ratio 11.9H, Vitamin B12 Level 537, Folate 45.9, Thyroid Stimulating Hormone (TSH) 0.613, Free Thyroxine 0.64L, Free Triiodothyronine 0.9L 08/11/19 15:30: Troponin I 0.225H 08/12/19 04:25: White Blood Count 7.6, Red Blood Count 3.41L, Hemoglobin 9.3L, Hematocrit 28.3L , Mean Corpuscular Volume 83, Mean Corpuscular Hemoglobin 27.2, Mean Corpuscular Hemoglobin Concent 32.8, Red Cell Distribution Width 14.3, Platelet Count 178, Mean Platelet Volume 5.5L, Neutrophils (%) (Auto) 83.0H, Lymphocytes (%) (Auto) 8.8L, Monocytes (%) (Auto) 7.4, Eosinophils (%) (Auto) 0.5, Basophils (%) (Auto) 0.3, Sodium Level 133L, Potassium Level 4.2, Chloride Level 98, Carbon Dioxide Level 20L, Anion Gap 15, Blood Urea Nitrogen 46H, Creatinine 4.5H, Estimat Glomerular Filtration Rate 13.9, Glucose Level 128H, Uric Acid 6.9, Calcium Level 8.5, Phosphorus Level 4.6, Magnesium Level 1.9, Total Bilirubin 0.6, Aspartate Amino Transf (AST/SGOT) 115H, Alanine Aminotransferase (ALT/SGPT) 96H, Alkaline Phosphatase 141H, Total Protein 7.1, Albumin 2.2L, Globulin 4.9, Albumin/Globulin Ratio 0.4L, Cortisol AM Sample [ Pending] Height (Feet): 6 Height (Inches): 1.00 Weight (Pounds): 215 General Appearance: no apparent distress Neck: normal alignment Cardiovascular: regular rhythm Respiratory/Chest: lungs clear Abdomen: normal bowel sounds Objective Current Medications Medications (Trade) Dose Ordered Sig/Aylin Route PRN Reason Start Time Stop Time Status Last Admin Dose Admin Acetaminophen (Tylenol) 650 mg Q4H PRN ORAL Mild Pain/Temp > 100.5 08/12/19 00:15 09/09/19 08:14 Atorvastatin Calcium (Lipitor) 40 mg BEDTIME ORAL 08/12/19 21:00 09/09/19 20:59 Bisacodyl (Dulcolax) 10 mg DAILY PRN RECTAL Constipation 08/11/19 23:00 09/10/19 22:59 Daptomycin 970 mg/ Sodium Chloride 55 ml @ 100 mls/hr Q24H IV 08/12/19 21:00 08/18/19 20:59 Dextrose (Dextrose 50%) 25 ml Q30M PRN IV Hypoglycemia 08/11/19 23:15 09/09/19 07:14 Dextrose (Dextrose 50%) 50 ml Q30M PRN IV Hypoglycemia 08/11/19 23:15 09/09/19 07:14 Docusate Sodium (Colace) 100 mg TWICE A DAY ORAL 08/12/19 09:00 09/09/19 08:59 Escitalopram Oxalate (Lexapro) 10 mg DAILY ORAL 08/12/19 09:00 09/09/19 08:59 Famotidine (Pepcid) 20 mg DAILY@0630 ORAL 08/12/19 06:30 09/10/19 06:29 08/12/19 06:30 Fish Oil (Fish Oil) 1,000 mg BID ORAL 08/12/19 09:00 09/10/19 17:59 Gabapentin (Neurontin) 300 mg BID ORAL 08/12/19 09:00 09/09/19 08:59 Gabapentin (Neurontin) 600 mg BEDTIME ORAL 08/12/19 21:00 09/09/19 20:59 Heparin Sodium (Porcine) (Heparin 5000 units/ml) 5,000 units EVERY 12 HOURS SUBQ 08/12/19 09:00 09/09/19 08:59 Hydralazine HCl (Apresoline) 25 mg Q4H PRN ORAL bp over 160 syst 08/11/19 23:45 09/09/19 11:44 Insulin Aspart (NovoLOG) BEFORE MEALS AND HS SUBQ 08/12/19 06:30 09/09/19 11:29 Insulin Aspart (NovoLOG) 20 units NOVOTIAC SUBQ 08/12/19 06:30 09/09/19 11:49 Insulin Detemir (Levemir) 50 units BID SUBQ 08/12/19 09:00 09/09/19 08:59 Meropenem 1 gm/ Sodium Chloride 55 ml @ 110 mls/hr Q12HR@1100,2300 IVPB 08/11/19 23:00 08/16/19 10:59 08/12/19 00:32 Multivitamins Therapeutic (Therapeutic Multivitamin) 1 ea BID ORAL 08/12/19 09:00 09/09/19 08:59 Quetiapine Fumarate (SEROquel) 50 mg Q12HR ORAL 08/12/19 09:00 09/11/19 08:59 Tamsulosin HCl (Flomax) 0.4 mg BEDTIME ORAL 08/12/19 21:00 09/09/19 20:59 Binh Borges MD Aug 12, 2019 06:44
--- NOTE | 2019-08-12 07:12 | NUR ---
HAND-OFF: Report given to PACO Meyer.Patient stable,still not able to urinate.
--- NOTE | 2019-08-12 07:19 | NUR ---
NURSE NOTES: Received report from Gita Weems RN. Observed patient in bed, awake, alert, verbally responsive and able to make needs known. On room air, no respiratory distress noted at this time. IV on right wrist intact and patent. Denies pain/discomfort at this time. Safety precautions in place, bed locked, alarmed, and in lowest position, side rails up x3, call light within reach, and pt placed in room close to nurse's station. All needs attended to. Will continue plan of care.
[2019-08-12 08:00] VITALS: BP 133/63
[2019-08-12] MEDS: Docusate 100mg cap ORAL SCH ×3 (08:55→18:55)
[2019-08-12] MEDS: Multivitamin w/Minerals tab ORAL SCH ×3 (08:56→18:56)
[2019-08-12] MEDS: Heparin 5000 units/ml inj SUBQ SCH ×2 (09:00→22:22)
[2019-08-12] MEDS: Levemir Flexpen SUBQ SCH ×3 (09:41→19:06)
--- NOTE | 2019-08-12 09:53 | General Progress Note ---
Assessment/Plan Status: stable, unchanged Assessment/Plan: S: I am ok O: Refusing to stay in bed. Pain is well controlled . PHYSICAL EXAMINATION: . HEAD AND NECK: multiple molars with plaques, Atraumatic and normocephalic. CHEST: Clear to auscultation. No wheezing. No crackles.HEART: S1 and S2. Regular rate and rhythm. No S3. No S4. ABDOMEN: Soft. No organomegaly.MUSCULOSKELETAL: Positive for bilater Charcot' s foot. Positive for stump of the prior tarsometatarsal resections. open wound in plantar aspect of left foot NEUROLOGIC: The patient is awake, alert, and oriented x3.PSYCHIATRIC: Mood and affect is normal LABORATORY DATA: Dated 08/12/2019 reviewed A/P: 1- Sever Gram negative Sepsis 2. Acute cellulitis with or with out Acute OM of left foot. 2- DM- uncontrolled 3. Non compliance with medications 3- Charcot Foot- Left sided 4- HTN 5- Psych 6. Acute on Chronic KD Plan: Discussed the care with Podiatry. Agree with the MRI of the foot Nephrology , Endo notes are reviewed current empiricall abx Will monirot serum troponin level cardiology, Dr Augustine consulted and notified Subjective Allergies: Coded Allergies: METFORMIN (Verified Allergy, Unknown, 10/09/18) Vomiting Objective Last 24 Hour Vital Signs Date Time Temp Pulse Resp B/P (MAP) Pulse Ox O2 Delivery O2 Flow Rate FiO2 08/12/19 09:20 105 08/12/19 09:00 Room Air 08/12/19 08:00 101.7 105 18 133/63 (86) 95 08/12/19 03:49 101 08/12/19 00:00 97.7 74 16 105/64 (78) 97 08/11/19 23:35 88 08/11/19 21:00 Room Air 08/11/19 20:00 99.6 92 20 114/70 (85) 95 08/11/19 18:42 100.0 08/11/19 16:00 99.8 89 15 111/55 (73) 94 08/11/19 12:00 100.5 90 19 92/55 (67) 94 Intake and Output 08/11/19 08/12/19 19:00 07:00 Intake Total 555 ml 605 ml Balance 555 ml 605 ml Intake Oral 550 ml IV Total 555 ml 55 ml # Voids 1 # Bowel Movements 3 Laboratory Tests 08/11/19 11:35: White Blood Count 8.2, Red Blood Count 3.39L, Hemoglobin 9.4L, Hematocrit 28.3L , Mean Corpuscular Volume 84, Mean Corpuscular Hemoglobin 27.7, Mean Corpuscular Hemoglobin Concent 33.1, Red Cell Distribution Width 13.9, Platelet Count 179, Mean Platelet Volume 5.7L, Neutrophils (%) (Auto) 81.0H, Lymphocytes (%) (Auto) 8.7L, Monocytes (%) (Auto) 10.0, Eosinophils (%) (Auto) 0.0, Basophils (%) (Auto) 0.3, Sodium Level 132L, Potassium Level 4.4, Chloride Level 99, Carbon Dioxide Level 23, Anion Gap 10, Blood Urea Nitrogen 38H, Creatinine 3.3H, Estimat Glomerular Filtration Rate 19.9, Glucose Level 154#H, Hemoglobin A1c 10.3H, Uric Acid 5.8, Calcium Level 8.7, Phosphorus Level 3.7, Magnesium Level 1.8, Iron Level 9L, Total Iron Binding Capacity 140L, Percent Iron Saturation 6L, Unsaturated Iron Binding 131, Ferritin 1020H, Total Bilirubin 0.6, Gamma Glutamyl Transpeptidase 86H, Aspartate Amino Transf (AST/ SGOT) 53H, Alanine Aminotransferase (ALT/SGPT) 55, Alkaline Phosphatase 118H, Troponin I 0.246H, C-Reactive Protein, Quantitative 63.7H, Pro-B-Type Natriuretic Peptide 4530H, Total Protein 6.9, Albumin 2.0L, Globulin 4.9, Albumin/Globulin Ratio 0.4L, Triglycerides Level 261H, Cholesterol Level 107, LDL Cholesterol 30, HDL Cholesterol 9L, Cholesterol/HDL Ratio 11.9H, Vitamin B12 Level 537, Folate 45.9, Thyroid Stimulating Hormone (TSH) 0.613, Free Thyroxine 0.64L, Free Triiodothyronine 0.9L 08/11/19 15:30: Troponin I 0.225H 08/12/19 04:25: White Blood Count 7.6, Red Blood Count 3.41L, Hemoglobin 9.3L, Hematocrit 28.3L , Mean Corpuscular Volume 83, Mean Corpuscular Hemoglobin 27.2, Mean Corpuscular Hemoglobin Concent 32.8, Red Cell Distribution Width 14.3, Platelet Count 178, Mean Platelet Volume 5.5L, Neutrophils (%) (Auto) 83.0H, Lymphocytes (%) (Auto) 8.8L, Monocytes (%) (Auto) 7.4, Eosinophils (%) (Auto) 0.5, Basophils (%) (Auto) 0.3, Sodium Level 133L, Potassium Level 4.2, Chloride Level 98, Carbon Dioxide Level 20L, Anion Gap 15, Blood Urea Nitrogen 46H, Creatinine 4.5H, Estimat Glomerular Filtration Rate 13.9, Glucose Level 128H, Uric Acid 6.9, Calcium Level 8.5, Phosphorus Level 4.6, Magnesium Level 1.9, Total Bilirubin 0.6, Aspartate Amino Transf (AST/SGOT) 115H, Alanine Aminotransferase (ALT/SGPT) 96H, Alkaline Phosphatase 141H, Total Protein 7.1, Albumin 2.2L, Globulin 4.9, Albumin/Globulin Ratio 0.4L, Cortisol AM Sample [ Pending] Height (Feet): 6 Height (Inches): 1.00 Weight (Pounds): 215 Dexter Haas MD Aug 12, 2019 09:53
--- NOTE | 2019-08-12 10:36 | Surgery Progress Note ---
Surgery Progress Note Subjective Additional Comments trop elevated on monitoring labs noted exam stable right edema/warmth > left no n/v/fc pending MRI Objective Last 24 Hour Vital Signs Date Time Temp Pulse Resp B/P (MAP) Pulse Ox O2 Delivery O2 Flow Rate FiO2 08/12/19 09:27 100.0 08/12/19 09:20 105 08/12/19 09:00 Room Air 08/12/19 08:00 101.7 105 18 133/63 (86) 95 08/12/19 03:49 101 08/12/19 00:00 97.7 74 16 105/64 (78) 97 08/11/19 23:35 88 08/11/19 21:00 Room Air 08/11/19 20:00 99.6 92 20 114/70 (85) 95 08/11/19 18:42 100.0 08/11/19 16:00 99.8 89 15 111/55 (73) 94 08/11/19 12:00 100.5 90 19 92/55 (67) 94 I&O Intake and Output 08/11/19 08/12/19 19:00 07:00 Intake Total 555 ml 605 ml Balance 555 ml 605 ml Intake Oral 550 ml IV Total 555 ml 55 ml # Voids 1 # Bowel Movements 3 Dressing: dry, other Wound: clean, other Cardiovascular: RSR Respiratory: clear Abdomen: soft, flat, non-tender, present bowel sounds Extremities: edema, no tenderness, no cyanosis, other Laboratory Tests Test 08/11/19 11:35 08/11/19 15:30 08/12/19 04:25 White Blood Count 8.2 K/UL (4.8-10.8) 7.6 K/UL (4.8-10.8) Red Blood Count 3.39 M/UL (4.70-6.10) L 3.41 M/UL (4.70-6.10) L Hemoglobin 9.4 G/DL (14.2-18.0) L 9.3 G/DL (14.2-18.0) L Hematocrit 28.3 % (42.0-52.0) L 28.3 % (42.0-52.0) L Mean Corpuscular Volume 84 FL (80-99) 83 FL (80-99) Mean Corpuscular Hemoglobin 27.7 PG (27.0-31.0) 27.2 PG (27.0-31.0) Mean Corpuscular Hemoglobin Concent 33.1 G/DL (32.0-36.0) 32.8 G/DL (32.0-36.0) Red Cell Distribution Width 13.9 % (11.6-14.8) 14.3 % (11.6-14.8) Platelet Count 179 K/UL (150-450) 178 K/UL (150-450) Mean Platelet Volume 5.7 FL (6.5-10.1) L 5.5 FL (6.5-10.1) L Neutrophils (%) (Auto) 81.0 % (45.0-75.0) H 83.0 % (45.0-75.0) H Lymphocytes (%) (Auto) 8.7 % (20.0-45.0) L 8.8 % (20.0-45.0) L Monocytes (%) (Auto) 10.0 % (1.0-10.0) 7.4 % (1.0-10.0) Eosinophils (%) (Auto) 0.0 % (0.0-3.0) 0.5 % (0.0-3.0) Basophils (%) (Auto) 0.3 % (0.0-2.0) 0.3 % (0.0-2.0) Sodium Level 132 MMOL/L (136-145) L 133 MMOL/L (136-145) L Potassium Level 4.4 MMOL/L (3.5-5.1) 4.2 MMOL/L (3.5-5.1) Chloride Level 99 MMOL/L (98-107) 98 MMOL/L (98-107) Carbon Dioxide Level 23 MMOL/L (21-32) 20 MMOL/L (21-32) L Anion Gap 10 mmol/L (5-15) 15 mmol/L (5-15) Blood Urea Nitrogen 38 mg/dL (7-18) H 46 mg/dL (7-18) H Creatinine 3.3 MG/DL (0.55-1.30) H 4.5 MG/DL (0.55-1.30) H Estimat Glomerular Filtration Rate 19.9 mL/min (>60) 13.9 mL/min (>60) Glucose Level 154 MG/DL (74-106) #H 128 MG/DL (74-106) H Hemoglobin A1c 10.3 % (4.3-6.0) H Uric Acid 5.8 MG/DL (2.6-7.2) 6.9 MG/DL (2.6-7.2) Calcium Level 8.7 MG/DL (8.5-10.1) 8.5 MG/DL (8.5-10.1) Phosphorus Level 3.7 MG/DL (2.5-4.9) 4.6 MG/DL (2.5-4.9) Magnesium Level 1.8 MG/DL (1.8-2.4) 1.9 MG/DL (1.8-2.4) Iron Level 9 ug/dL (50-175) L Total Iron Binding Capacity 140 ug/dL (250-450) L Percent Iron Saturation 6 % (15-50) L Unsaturated Iron Binding 131 ug/dL (112-346) Ferritin 1020 NG/ML (8-388) H Total Bilirubin 0.6 MG/DL (0.2-1.0) 0.6 MG/DL (0.2-1.0) Gamma Glutamyl Transpeptidase 86 U/L (5-85) H Aspartate Amino Transf (AST/SGOT) 53 U/L (15-37) H 115 U/L (15-37) H Alanine Aminotransferase (ALT/SGPT) 55 U/L (12-78) 96 U/L (12-78) H Alkaline Phosphatase 118 U/L (46-116) H 141 U/L (46-116) H Troponin I 0.246 ng/mL (0.000-0.056) 0.225 ng/mL (0.000-0.056) C-Reactive Protein, Quantitative 63.7 mg/dL (0.00-0.90) H Pro-B-Type Natriuretic Peptide 4530 pg/mL (0-125) H Total Protein 6.9 G/DL (6.4-8.2) 7.1 G/DL (6.4-8.2) Albumin 2.0 G/DL (3.4-5.0) L 2.2 G/DL (3.4-5.0) L Globulin 4.9 g/dL 4.9 g/dL Albumin/Globulin Ratio 0.4 (1.0-2.7) L 0.4 (1.0-2.7) L Triglycerides Level 261 MG/DL (30-150) H Cholesterol Level 107 MG/DL (< 200) LDL Cholesterol 30 mg/dL (<100) HDL Cholesterol 9 MG/DL (40-60) L Cholesterol/HDL Ratio 11.9 (3.3-4.4) H Vitamin B12 Level 537 PG/ML (193-986) Folate 45.9 NG/ML (8.6-58.9) Thyroid Stimulating Hormone (TSH) 0.613 uiU/mL (0.358-3.740) Free Thyroxine 0.64 NG/DL (0.76-1.46) L Free Triiodothyronine 0.9 pg/mL (2.3-4.2) L Cortisol AM Sample Pending Plan Problems: (1) Osteomyelitis of ankle or foot, left, acute Assessment & Plan: Left Foot plain films FINDINGS: Bones joints: No acute fracture. No dislocation. Surgical absence of the fifth phalanges and distal half of the fifth metatarsal bone. Marked deformity in the mid foot and base of the first metatarsal bone likely posttraumatic post surgical change. Soft tissues: Soft tissue swelling about the plantar aspect of the foot. No radiopaque foreign body. IMPRESSION: 1. Marked deformity in the mid foot likely postsurgical posttraumatic change. 2. No gross acute bony abnormality. 3. Status post resection of the fifth phalanges as described Pending MRI (2) Foot ulcer due to secondary DM (3) Cellulitis of lower extremity Assessment & Plan: This is a 48-year-old male with known history of prior infections and surgical mention of his lower extremity Charcot's foot who is been recovering in a nursing facility until recently noted to have more edema cellulitis and drainage. Leukocytosis, HD stable, renal insufficiency, dehydration. Admitted for further care and management IV antibiotics as per infectious disease Podiatry consultation appreciated Trend labs MRI of right and left lower extremity ordered and pending completion and read We will continue with local wound care and antibiotics. Will discuss with podiatry potential necessity for further surgical intervention Thank you for allowing me to participate in patient's care will continue to follow with recognitions Melquiades Rush Aug 12, 2019 10:36
--- NOTE | 2019-08-12 11:06 | NUR ---
NURSE NOTES: Dr Frost present at bedside, informed and made aware that pt is refusing ch catheter. Dr Frost ordered bladder scan and explained the procedure to patient. noted and will carry out.
--- NOTE | 2019-08-12 11:50 | NUR ---
NURSE NOTES: Bladder scan performed, showed 0 mL. No bladder distention noted. Pt is incontinent, placed on diapers. No further orders at this time. Will continue to monitor.
[2019-08-12 12:00] VITALS: BP 106/65
--- NOTE | 2019-08-12 12:12 | Nephrology Progress Note ---
Assessment/Plan Problem List: (1) Renal failure (ARF), acute on chronic (2) Diabetic nephropathy (3) Cellulitis of lower extremity Assessment Acute on chronic renal failure- Diabetic Nephropathy DM OOC Anemia Electrolyte imbalance HTN Plan Refuses ch- bladder scan: Zero Hydrate Keep BP and BS in check avoid nephrotoxics monitor renal parameters 2D echo Left ventricular ejection fraction is estimated to be 55%. COOPER kidney unremarkable Urine studies NS and or Albumin bolus Subjective ROS Limited/Unobtainable: No Constitutional: Reports: malaise Objective Objective Last 24 Hour Vital Signs Date Time Temp Pulse Resp B/P (MAP) Pulse Ox O2 Delivery O2 Flow Rate FiO2 08/12/19 09:27 100.0 08/12/19 09:20 105 08/12/19 09:00 Room Air 08/12/19 08:00 101.7 105 18 133/63 (86) 95 08/12/19 03:49 101 08/12/19 00:00 97.7 74 16 105/64 (78) 97 08/11/19 23:35 88 08/11/19 21:00 Room Air 08/11/19 20:00 99.6 92 20 114/70 (85) 95 08/11/19 18:42 100.0 08/11/19 16:00 99.8 89 15 111/55 (73) 94 Intake and Output 08/11/19 08/12/19 19:00 07:00 Intake Total 555 ml 605 ml Balance 555 ml 605 ml Intake Oral 550 ml IV Total 555 ml 55 ml # Voids 1 # Bowel Movements 3 Laboratory Tests 08/11/19 15:30: Troponin I 0.225H 08/12/19 04:25: White Blood Count 7.6, Red Blood Count 3.41L, Hemoglobin 9.3L, Hematocrit 28.3L , Mean Corpuscular Volume 83, Mean Corpuscular Hemoglobin 27.2, Mean Corpuscular Hemoglobin Concent 32.8, Red Cell Distribution Width 14.3, Platelet Count 178, Mean Platelet Volume 5.5L, Neutrophils (%) (Auto) 83.0H, Lymphocytes (%) (Auto) 8.8L, Monocytes (%) (Auto) 7.4, Eosinophils (%) (Auto) 0.5, Basophils (%) (Auto) 0.3, Sodium Level 133L, Potassium Level 4.2, Chloride Level 98, Carbon Dioxide Level 20L, Anion Gap 15, Blood Urea Nitrogen 46H, Creatinine 4.5H, Estimat Glomerular Filtration Rate 13.9, Glucose Level 128H, Uric Acid 6.9, Calcium Level 8.5, Phosphorus Level 4.6, Magnesium Level 1.9, Total Bilirubin 0.6, Aspartate Amino Transf (AST/SGOT) 115H, Alanine Aminotransferase (ALT/SGPT) 96H, Alkaline Phosphatase 141H, Total Protein 7.1, Albumin 2.2L, Globulin 4.9, Albumin/Globulin Ratio 0.4L, Cortisol AM Sample 14.8 Height (Feet): 6 Height (Inches): 1.00 Weight (Pounds): 215 General Appearance: no apparent distress Cardiovascular: tachycardia Respiratory/Chest: decreased breath sounds Abdomen: soft Objective no change Ernesto Frost MD Aug 12, 2019 12:12
--- NOTE | 2019-08-12 12:25 | NUR ---
CASE MANAGEMENT: REVIEW 08/12/19 SI: SEPSIS, ACUTE RF 101.7 105 18 133/63 95%RA NA+133; BUN 46; CRE 4.5; ALK PHOS 141; AST 115; RBC 3.41; H/H 9.3/28.3 IS: HEPARIN SQ Q12 IV DAPTOMYCIN Q24 IV MEROPENEM Q12 HYDRALAZINE PO Q4/PRN NOVOLOG QD LEVEMIR SQ BID LIPITOR PO HS NEURONTIN PO HS SEROQUEL PO Q12 IVF NS BOLUS X2 : TO 2W STEPDOWN UNIT PLAN: MRI FOOT PENDING WOUND CX Addendum: 08/12/19 at 1300 by LIDIA KNOX LVN CASE MANAGEMENT: REVIEW 08/12/19 SI: SEPSIS, ACUTE RF 101.7 105 18 133/63 95%RA NA+133; BUN 46; CRE 4.5; ALK PHOS 141; AST 115; RBC 3.41; H/H 9.3/28.3 08/11/19 TROP+=0.225 IS: HEPARIN SQ Q12 IV DAPTOMYCIN Q24 IV MEROPENEM Q12 HYDRALAZINE PO Q4/PRN NOVOLOG QD LEVEMIR SQ BID LIPITOR PO HS NEURONTIN PO HS SEROQUEL PO Q12 IVF NS BOLUS X2 : TO 2W STEPDOWN UNIT PLAN: MRI FOOT PENDING WOUND CX
--- NOTE | 2019-08-12 13:00 | NUR ---
NURSE NOTES: Placed patient on condom catheter per Dr Frost's order; bladder scan repeated, verified with charge nurse Palma Webb.
--- NOTE | 2019-08-12 13:15 | NUR ---
08/12...MRI second attempt, pt unable to stay still or stay awake. Dr Rush aware, RN Palma and Rocio pantoja aware. tjb 13:13
--- NOTE | 2019-08-12 13:25 | NUR ---
NURSE NOTES: Unavailable to do MRI, per tech pt unable to stay still. Charge nurse and machine records units supervisor aware.
--- NOTE | 2019-08-12 13:40 | NUR ---
NURSE NOTES: Pt. came on the floor from [facility] accompanied by PACO Meyer. In RA. Denies SOB or pain. Belongings checked with RN, hand watch indicated on Pt's belonging list wasn't found. PACO Meyer aware. BLE dressing intact. Per RN, dressings changed for the day. IV running at 100, site clean, intact. Bed on lowest position, side rails upx2, brakes engaged, alarm on. Call light within easy reach.
--- NOTE | 2019-08-12 13:56 | NUR ---
HAND-OFF: Transferred patient to telemetry room 220-1, report given to PACO Salgado. Transferred patient via hospital bed, remained on compliance monitor. Pt's belongings at bedside, list inventoried with receiving nurse, states will sign the belonging's list later today. Pt in stable condition.
[2019-08-12 16:00] VITALS: BP 138/83
--- NOTE | 2019-08-12 16:18 | NUR ---
NURSE NOTES: Informed Dr. Haas tried to contact Dr. Quevedo's office 4X to inform MRI wasn't done. to contact Dr Quevedo.
--- NOTE | 2019-08-12 17:15 | Progress Note ---
DATE: 08/12/2019 SUBJECTIVE: The patient continues to be confused. He is able to answer simple questions. No agitation this morning. He is refusing treatment and care. Agitated during the MRI. MENTAL STATUS EXAMINATION: The patient is alert and oriented times self and place. Mood is agitated. Affect is flat. Thought process, there is a paucity of thought content. Thought content, no suicidal or homicidal ideations. Cognition is impaired. Insight and judgment, non-existent. ASSESSMENT: 1. Cognitive impairment. 2. Schizoaffective disorder. PLAN: 1. We will continue the Seroquel 50 mg b.i.d. 2. Continue to follow and readjust the medications. Olena Diaz M.D. DR: RADHA JOB#: [id number] CC:
--- NOTE | 2019-08-12 17:32 | NUR ---
NURSE NOTES: Called and left a message to Dr. Milner regarding Pt's BS results and standing Insulin order. Waiting for a call back.
--- NOTE | 2019-08-12 18:43 | Podiatric Progress Note ---
Assessment/Plan Patient Walker Chahal is a 48 year old male who was admitted on Aug 10, 2019 at 04:11 with Assessment/Plan A: B/L Foot charcot deformity Left plantar RF ulcer, with purulent drainage Right foot plantar lateral ulceration, possible deep abscess DM Sepsis Acute Renal Failure P: Pt seen and evaluated Discuss findings with patient WBC, 7.6, down trending Temp, 96.7, currently afebrile. MRI to B/L L/E pending, spoke with patient he agrees to proceed with study[facility]. Cont IV ABx Cont tx per specialists Pt transferred to Tele 12/14 elevated troponin Patient may require surgical intervention pending MRI official report and medical clearance. Podiatry will cont to monitor. Subjective Reason for consult B/L ulceration, charcot foot deformity, cellulitis. Allergies: Coded Allergies: METFORMIN (Verified Allergy, Unknown, 10/09/18) Vomiting Subjective Pt seen bedside for B/L L/E charcot foot deformity, celllulits and ulceration. He states pain is minimal to B/L L/E. Appears NAD at bedside. Objective Exam Last 24 Hour Vital Signs Date Time Temp Pulse Resp B/P (MAP) Pulse Ox O2 Delivery O2 Flow Rate FiO2 08/12/19 16:00 95 08/12/19 16:00 96.7 95 18 138/83 (101) 95 08/12/19 12:00 99.5 94 20 106/65 (79) 94 08/12/19 11:34 95 08/12/19 09:27 100.0 08/12/19 09:20 105 08/12/19 09:00 Room Air 08/12/19 08:00 101.7 105 18 133/63 (86) 95 08/12/19 03:49 101 08/12/19 00:00 97.7 74 16 105/64 (78) 97 08/11/19 23:35 88 08/11/19 21:00 Room Air 08/11/19 20:00 99.6 92 20 114/70 (85) 95 08/11/19 18:42 100.0 Laboratory Tests Test 08/12/19 04:25 White Blood Count 7.6 K/UL (4.8-10.8) Red Blood Count 3.41 M/UL (4.70-6.10) L Hemoglobin 9.3 G/DL (14.2-18.0) L Hematocrit 28.3 % (42.0-52.0) L Mean Corpuscular Volume 83 FL (80-99) Mean Corpuscular Hemoglobin 27.2 PG (27.0-31.0) Mean Corpuscular Hemoglobin Concent 32.8 G/DL (32.0-36.0) Red Cell Distribution Width 14.3 % (11.6-14.8) Platelet Count 178 K/UL (150-450) Mean Platelet Volume 5.5 FL (6.5-10.1) L Neutrophils (%) (Auto) 83.0 % (45.0-75.0) H Lymphocytes (%) (Auto) 8.8 % (20.0-45.0) L Monocytes (%) (Auto) 7.4 % (1.0-10.0) Eosinophils (%) (Auto) 0.5 % (0.0-3.0) Basophils (%) (Auto) 0.3 % (0.0-2.0) Sodium Level 133 MMOL/L (136-145) L Potassium Level 4.2 MMOL/L (3.5-5.1) Chloride Level 98 MMOL/L (98-107) Carbon Dioxide Level 20 MMOL/L (21-32) L Anion Gap 15 mmol/L (5-15) Blood Urea Nitrogen 46 mg/dL (7-18) H Creatinine 4.5 MG/DL (0.55-1.30) H Estimat Glomerular Filtration Rate 13.9 mL/min (>60) Glucose Level 128 MG/DL (74-106) H Uric Acid 6.9 MG/DL (2.6-7.2) Calcium Level 8.5 MG/DL (8.5-10.1) Phosphorus Level 4.6 MG/DL (2.5-4.9) Magnesium Level 1.9 MG/DL (1.8-2.4) Total Bilirubin 0.6 MG/DL (0.2-1.0) Aspartate Amino Transf (AST/SGOT) 115 U/L (15-37) H Alanine Aminotransferase (ALT/SGPT) 96 U/L (12-78) H Alkaline Phosphatase 141 U/L (46-116) H Total Protein 7.1 G/DL (6.4-8.2) Albumin 2.2 G/DL (3.4-5.0) L Globulin 4.9 g/dL Albumin/Globulin Ratio 0.4 (1.0-2.7) L Cortisol AM Sample 14.8 UG/DL Microbiology Date/Time Source Procedure Growth Status 08/10/19 04:05 Blood Blood Culture - Preliminary NO GROWTH AFTER 48 HOURS Resulted 08/11/19 06:10 Wound Gram Stain - Final Resulted 08/11/19 06:10 Wound Culture - Preliminary Gram Negative Bacillus 1 Resulted 08/10/19 04:30 Nasal Nares MRSA Culture - Final Staphylococcus Aureus - Mrsa Complete 08/10/19 04:30 Rectum - Final NO CARBAPENEM-RESISTANT ENTEROBACTERI... Complete Dermatological Wound Assessment : Exudate Amount: Mild Dermatological Narrative VASCULAR: DP/PT pulses +2/4 SUPERVISOR ALUMINUM FABRICATION < 3 seconds (+) pitting edema distal to tibial tuberoisty R > L. NEUROLOGICAL: SILT decreased to all dermatomes. MUSCULOSKELETAL: Left foot noted to have Charcot deformity with midfoot collapse. Right foot also noted to have charcot deformity, ROM and MS noted to be decreased. DERMATOLOGICAL EXAMINATION: Left foot ulceration is noted plantar central calcaneus, wound base noted to muscle layer, (+) purulent drainage is noted. Positive myriam-wound erythema. Right foot ulceration is noted plantar lateral midfoot, wound base is noted to subQ layer, (-) purulent drainage is noted. Positive myriam-wound erythema. Negative drainage, discharge, or purulent matter. Increase temp differential noted R > L. Ascending erythema is noted. Steven Cole DPM Aug 12, 2019 18:43
--- NOTE | 2019-08-12 18:54 | Infectious Diseases Prog Note ---
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 continue daptomycin since his wound in rehab grew VRE , and continue zosyn for now . monitor ck weekly (2) Renal failure (ARF), acute on chronic Assessment & Plan: avoid nephrotoxics , continue hydration, close monitoring of renal function, renal is following (3) Poorly controlled diabetes mellitus Assessment & Plan: recommend tight glycemic control to keep blood glucose between 100-140 (4) Diabetic foot infection Assessment & Plan: with ESBL producing Klebsiella Pneumonia and citrobacter , already on wide spectrum antibiotics , keep leg elevated while in bed, tight glycemic control (5) Sepsis Assessment & Plan: with gram negative rods , suspect source is his left foot , continue meropenem and daptomycin pending final culture results . may need surgical debridement of the left foot for source control , pending MRI results Subjective Constitutional: Reports: fever, fatigue HEENT: Reports: no symptoms Respiratory: Reports: no symptoms Breasts: Reports: no symptoms Cardiovascular: Reports: no symptoms Gastrointestinal/Abdominal: Reports: no symptoms Genitourinary: Reports: no symptoms Neurologic: Reports: weakness, confusion Psychiatric: Reports: anxiety Skin: Reports: ulcer Endocrine: Reports: no symptoms Hematologic: Reports: no symptoms Musculoskeletal: Reports: pain, swelling Allergies: Coded Allergies: METFORMIN (Verified Allergy, Unknown, 10/09/18) Vomiting Objective Vital Signs Last 24 Hour Vital Signs Date Time Temp Pulse Resp B/P (MAP) Pulse Ox O2 Delivery O2 Flow Rate FiO2 08/12/19 16:00 95 08/12/19 16:00 96.7 95 18 138/83 (101) 95 08/12/19 12:00 99.5 94 20 106/65 (79) 94 08/12/19 11:34 95 08/12/19 09:27 100.0 08/12/19 09:20 105 08/12/19 09:00 Room Air 08/12/19 08:00 101.7 105 18 133/63 (86) 95 08/12/19 03:49 101 08/12/19 00:00 97.7 74 16 105/64 (78) 97 08/11/19 23:35 88 08/11/19 21:00 Room Air 08/11/19 20:00 99.6 92 20 114/70 (85) 95 Height (Feet): 6 Height (Inches): 1.00 Weight (Pounds): 215 General Appearance: WD/WN, no acute distress HEENT: normocephalic, atraumatic, anicteric, mucous membranes moist, PERRL, EOMI, pharynx normal, supple, no JVD Respiratory/Chest: chest wall non-tender, lungs clear, normal breath sounds, no respiratory distress, no accessory muscle use Cardiovascular: normal peripheral pulses, normal rate, regular rhythm, no gallop/murmur, no JVD Abdomen: normal bowel sounds, soft, non tender, no organomegaly, non distended , no mass, no scars Extremities: no cyanosis, no clubbing Skin: no rash, no lesions, ulcers 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, alert, responsive Lymphatic: no neck adenopathy, no groin adenopathy Musculoskeletal: normal muscle bulk, no effusion Microbiology Date/Time Source Procedure Growth Status 08/10/19 04:05 Blood Blood Culture - Preliminary NO GROWTH AFTER 48 HOURS Resulted 08/10/19 03:50 Blood Blood Culture - Preliminary Gram Negative Kofi Resulted 08/11/19 06:10 Wound Gram Stain - Final Resulted 08/11/19 06:10 Wound Culture - Preliminary Gram Negative Bacillus 1 Resulted 08/10/19 04:30 Wound Gram Stain - Final Resulted 08/10/19 04:30 Wound Culture - Preliminary Citrobacter Diversus Klebsiella Pneumoniae Esbl Resulted 08/10/19 04:30 Other(Specify in comment) Gram Stain - Final Resulted 08/10/19 04:30 Wound Culture - Preliminary Citrobacter Diversus Gram Negative Bacillus 2 Resulted 08/10/19 04:30 Nasal Nares MRSA Culture - Final Staphylococcus Aureus - Mrsa Complete 08/10/19 04:30 Rectum - Final NO CARBAPENEM-RESISTANT ENTEROBACTERI... Complete 08/10/19 04:30 Rectum VRE Culture - Final NO VANCOMYCIN RESISTANT ENTEROCOCCUS ... Complete Laboratory Tests Test 08/12/19 04:25 White Blood Count 7.6 K/UL (4.8-10.8) Red Blood Count 3.41 M/UL (4.70-6.10) L Hemoglobin 9.3 G/DL (14.2-18.0) L Hematocrit 28.3 % (42.0-52.0) L Mean Corpuscular Volume 83 FL (80-99) Mean Corpuscular Hemoglobin 27.2 PG (27.0-31.0) Mean Corpuscular Hemoglobin Concent 32.8 G/DL (32.0-36.0) Red Cell Distribution Width 14.3 % (11.6-14.8) Platelet Count 178 K/UL (150-450) Mean Platelet Volume 5.5 FL (6.5-10.1) L Neutrophils (%) (Auto) 83.0 % (45.0-75.0) H Lymphocytes (%) (Auto) 8.8 % (20.0-45.0) L Monocytes (%) (Auto) 7.4 % (1.0-10.0) Eosinophils (%) (Auto) 0.5 % (0.0-3.0) Basophils (%) (Auto) 0.3 % (0.0-2.0) Sodium Level 133 MMOL/L (136-145) L Potassium Level 4.2 MMOL/L (3.5-5.1) Chloride Level 98 MMOL/L (98-107) Carbon Dioxide Level 20 MMOL/L (21-32) L Anion Gap 15 mmol/L (5-15) Blood Urea Nitrogen 46 mg/dL (7-18) H Creatinine 4.5 MG/DL (0.55-1.30) H Estimat Glomerular Filtration Rate 13.9 mL/min (>60) Glucose Level 128 MG/DL (74-106) H Uric Acid 6.9 MG/DL (2.6-7.2) Calcium Level 8.5 MG/DL (8.5-10.1) Phosphorus Level 4.6 MG/DL (2.5-4.9) Magnesium Level 1.9 MG/DL (1.8-2.4) Total Bilirubin 0.6 MG/DL (0.2-1.0) Aspartate Amino Transf (AST/SGOT) 115 U/L (15-37) H Alanine Aminotransferase (ALT/SGPT) 96 U/L (12-78) H Alkaline Phosphatase 141 U/L (46-116) H Total Protein 7.1 G/DL (6.4-8.2) Albumin 2.2 G/DL (3.4-5.0) L Globulin 4.9 g/dL Albumin/Globulin Ratio 0.4 (1.0-2.7) L Cortisol AM Sample 14.8 UG/DL Current Medications Medications (Trade) Dose Ordered Sig/Aylin Route PRN Reason Start Time Stop Time Status Last Admin Dose Admin Acetaminophen (Tylenol) 650 mg Q4H PRN ORAL Mild Pain/Temp > 100.5 08/12/19 00:15 09/09/19 08:14 08/12/19 08:57 Atorvastatin Calcium (Lipitor) 40 mg BEDTIME ORAL 08/12/19 21:00 09/09/19 20:59 Bisacodyl (Dulcolax) 10 mg DAILY PRN RECTAL Constipation 08/11/19 23:00 09/10/19 22:59 Daptomycin 970 mg/ Sodium Chloride 55 ml @ 100 mls/hr Q24H IV 08/12/19 21:00 08/18/19 20:59 Dextrose (Dextrose 50%) 25 ml Q30M PRN IV Hypoglycemia 08/11/19 23:15 09/09/19 07:14 Dextrose (Dextrose 50%) 50 ml Q30M PRN IV Hypoglycemia 08/11/19 23:15 09/09/19 07:14 Docusate Sodium (Colace) 100 mg TWICE A DAY ORAL 08/12/19 18:45 09/11/19 18:44 Escitalopram Oxalate (Lexapro) 10 mg DAILY ORAL 08/12/19 09:00 09/09/19 08:59 08/12/19 08:54 Famotidine (Pepcid) 20 mg DAILY@0630 ORAL 08/12/19 06:30 09/10/19 06:29 08/12/19 06:30 Fish Oil (Fish Oil) 1,000 mg BID ORAL 08/12/19 18:45 09/11/19 18:44 Gabapentin (Neurontin) 300 mg BID ORAL 08/12/19 18:46 09/11/19 18:45 Gabapentin (Neurontin) 600 mg BEDTIME ORAL 08/12/19 21:00 09/09/19 20:59 Heparin Sodium (Porcine) (Heparin 5000 units/ml) 5,000 units EVERY 12 HOURS SUBQ 08/12/19 09:00 09/09/19 08:59 08/12/19 09:00 Hydralazine HCl (Apresoline) 25 mg Q4H PRN ORAL bp over 160 syst 08/11/19 23:45 09/09/19 11:44 Insulin Aspart (NovoLOG) BEFORE MEALS AND HS SUBQ 08/12/19 06:30 09/09/19 11:29 08/12/19 11:20 Insulin Aspart (NovoLOG) 10 units ONCE SUBQ 08/12/19 18:40 08/12/19 21:00 Insulin Aspart (NovoLOG) 15 units NOVOTIAC SUBQ 08/12/19 11:50 09/09/19 11:49 08/12/19 11:21 Insulin Detemir (Levemir) 50 units BID SUBQ 08/12/19 09:00 09/09/19 08:59 08/12/19 09:41 Meropenem 1 gm/ Sodium Chloride 55 ml @ 110 mls/hr Q12HR@1100,2300 IVPB 08/11/19 23:00 08/16/19 10:59 08/12/19 11:19 Multivitamins Therapeutic (Therapeutic Multivitamin) 1 ea BID ORAL 08/12/19 18:46 09/11/19 18:45 Quetiapine Fumarate (SEROquel) 50 mg Q12HR ORAL 08/12/19 09:00 09/11/19 08:59 08/12/19 08:55 Sodium Chloride 1,000 ml @ 100 mls/hr Q10H IV 08/12/19 12:15 09/11/19 12:14 08/12/19 12:30 Tamsulosin HCl (Flomax) 0.4 mg BEDTIME ORAL 08/12/19 21:00 09/09/19 20:59 Kwasi Martinez M.D. Aug 12, 2019 18:54
--- NOTE | 2019-08-12 19:25 | Cardiology Progress Note ---
Assessment/Plan Assessment/Plan The patient is seen and examined, full consult note will be dictated shortly. Objective Last 24 Hour Vital Signs Date Time Temp Pulse Resp B/P (MAP) Pulse Ox O2 Delivery O2 Flow Rate FiO2 08/12/19 16:00 95 08/12/19 16:00 96.7 95 18 138/83 (101) 95 08/12/19 12:00 99.5 94 20 106/65 (79) 94 08/12/19 11:34 95 08/12/19 09:27 100.0 08/12/19 09:20 105 08/12/19 09:00 Room Air 08/12/19 08:00 101.7 105 18 133/63 (86) 95 08/12/19 03:49 101 08/12/19 00:00 97.7 74 16 105/64 (78) 97 08/11/19 23:35 88 08/11/19 21:00 Room Air 08/11/19 20:00 99.6 92 20 114/70 (85) 95 Intake and Output 08/11/19 08/12/19 19:00 07:00 Intake Total 555 ml 605 ml Balance 555 ml 605 ml Intake Oral 550 ml IV Total 555 ml 55 ml # Voids 1 # Bowel Movements 3 Laboratory Tests Test 08/12/19 04:25 White Blood Count 7.6 K/UL (4.8-10.8) Red Blood Count 3.41 M/UL (4.70-6.10) L Hemoglobin 9.3 G/DL (14.2-18.0) L Hematocrit 28.3 % (42.0-52.0) L Mean Corpuscular Volume 83 FL (80-99) Mean Corpuscular Hemoglobin 27.2 PG (27.0-31.0) Mean Corpuscular Hemoglobin Concent 32.8 G/DL (32.0-36.0) Red Cell Distribution Width 14.3 % (11.6-14.8) Platelet Count 178 K/UL (150-450) Mean Platelet Volume 5.5 FL (6.5-10.1) L Neutrophils (%) (Auto) 83.0 % (45.0-75.0) H Lymphocytes (%) (Auto) 8.8 % (20.0-45.0) L Monocytes (%) (Auto) 7.4 % (1.0-10.0) Eosinophils (%) (Auto) 0.5 % (0.0-3.0) Basophils (%) (Auto) 0.3 % (0.0-2.0) Sodium Level 133 MMOL/L (136-145) L Potassium Level 4.2 MMOL/L (3.5-5.1) Chloride Level 98 MMOL/L (98-107) Carbon Dioxide Level 20 MMOL/L (21-32) L Anion Gap 15 mmol/L (5-15) Blood Urea Nitrogen 46 mg/dL (7-18) H Creatinine 4.5 MG/DL (0.55-1.30) H Estimat Glomerular Filtration Rate 13.9 mL/min (>60) Glucose Level 128 MG/DL (74-106) H Uric Acid 6.9 MG/DL (2.6-7.2) Calcium Level 8.5 MG/DL (8.5-10.1) Phosphorus Level 4.6 MG/DL (2.5-4.9) Magnesium Level 1.9 MG/DL (1.8-2.4) Total Bilirubin 0.6 MG/DL (0.2-1.0) Aspartate Amino Transf (AST/SGOT) 115 U/L (15-37) H Alanine Aminotransferase (ALT/SGPT) 96 U/L (12-78) H Alkaline Phosphatase 141 U/L (46-116) H Total Protein 7.1 G/DL (6.4-8.2) Albumin 2.2 G/DL (3.4-5.0) L Globulin 4.9 g/dL Albumin/Globulin Ratio 0.4 (1.0-2.7) L Cortisol AM Sample 14.8 UG/DL Microbiology Date/Time Source Procedure Growth Status 08/10/19 04:05 Blood Blood Culture - Preliminary NO GROWTH AFTER 48 HOURS Resulted 08/10/19 03:50 Blood Blood Culture - Preliminary Gram Negative Kofi Resulted 08/11/19 06:10 Wound Gram Stain - Final Resulted 08/11/19 06:10 Wound Culture - Preliminary Gram Negative Bacillus 1 Resulted 08/10/19 04:30 Wound Gram Stain - Final Resulted 08/10/19 04:30 Wound Culture - Preliminary Citrobacter Diversus Klebsiella Pneumoniae Esbl Resulted 08/10/19 04:30 Other(Specify in comment) Gram Stain - Final Resulted 08/10/19 04:30 Wound Culture - Preliminary Citrobacter Diversus Gram Negative Bacillus 2 Resulted 08/10/19 04:30 Nasal Nares MRSA Culture - Final Staphylococcus Aureus - Mrsa Complete 08/10/19 04:30 Rectum - Final NO CARBAPENEM-RESISTANT ENTEROBACTERI... Complete 08/10/19 04:30 Rectum VRE Culture - Final NO VANCOMYCIN RESISTANT ENTEROCOCCUS ... Complete Corey Augustine MD Aug 12, 2019 19:25
[2019-08-12] MEDS ORDERED: LORazepam Inj 2mg/ml 1ml IV PRN (19:45)
--- NOTE | 2019-08-12 19:47 | NUR ---
NURSE NOTES: Called Dr. Milner regarding Pt's Levemir. Night RN to follow up.
--- NOTE | 2019-08-12 19:50 | NUR ---
NURSE NOTES: Pt received from PACO Salgado resting in bed with no acute s/s of distress noted. IV site asymptomatic and patent, on R wrist 22g. Fall precautions implemented. Bed in lowest position, bed alarm on, call light and belongings within reach.
[2019-08-12 20:00] VITALS: BP 127/89
--- NOTE | 2019-08-12 20:41 | NUR ---
NURSE NOTES: Spoke with Dr. Borges regarding scheduled Levemir 50 Units with 1800 BS of 101. Per Katerina Diaz, "hold Levemir 50 Units and give Levemit 25 Units instead."
[2019-08-12] MEDS ORDERED: Levemir Flexpen SUBQ SCH (21:00)
[2019-08-12] MEDS: NS IV SCH (22:19)
[2019-08-12] MEDS: DAPTOMYCIN IV SCH (22:19)
[2019-08-12] MEDS: Atorvastatin 20mg tab ORAL SCH (22:20)
[2019-08-12] MEDS: Aspirin EC 81mg tab ORAL SCH (22:20)
[2019-08-12] MEDS: Tamsulosin 0.4mg cap ORAL SCH (22:20)
[2019-08-13] VITALS: BP_SYST 121; BP_SYST 127; BP_DIAS 74; BP_DIAS 89
[2019-08-13 01:36] LABS: APPEARANCE,URINE SLIGHTLY CLOUDY; BILIRUBIN, URINE NEGATIVE (NEGATIVE); GLUCOSE, URINE (UA) NEGATIVE (NEGATIVE); KETONES,URINE NEGATIVE (NEGATIVE); LEUKOCYTE ESTERASE ,URINE NEGATIVE (NEGATIVE); NITRITE,URINE NEGATIVE (NEGATIVE); PH,URINE 5 (4.5-8.0); PROTEIN,URINE 2+ (NEGATIVE); UROBILINOGEN,URINE NORMAL MG/DL (0.0-1.0)
[2019-08-13 01:53] LABS: COLOR,URINE YELLOW
[2019-08-13] MEDS: Meropenem 1 GM in NS 55 ML IVPB SCH ×3 (02:39→23:51)
--- NOTE | 2019-08-13 03:20 | NUR ---
NURSE NOTES: Received pt and report from PACO Sy. Observed pt asleep in bed with both eyes closed; arousable to voice. Pt is A/Ox2. concrete puddler is in placed, IV site intact, asymptomatic, and patent. Bed is in the lowest position and locked, call light within reach. No signs/symptoms of acute distress noted at this time. Will continue plan of care.
--- NOTE | 2019-08-13 03:30 | NUR ---
HAND-OFF: Report given to PACO Roberts. Plan of care endorsed.
[2019-08-13 04:00] VITALS: BP 126/78
[2019-08-13] MEDS: NovoLOG Insulin Flexpen SUBQ SCH ×7 (06:35→21:37)
--- NOTE | 2019-08-13 06:44 | General Progress Note ---
Assessment/Plan Problem List: (1) Foot ulcer due to secondary DM ICD Codes: E13.621 - Other specified diabetes mellitus with foot ulcer; L97.509 - Non-pressure chronic ulcer of other part of unspecified foot with unspecified severity SNOMED: 8842795, [id number] (2) Diabetic nephropathy ICD Codes: E11.21 - Type 2 diabetes mellitus with diabetic nephropathy SNOMED: 38675359, 883953706 (3) Poorly controlled diabetes mellitus ICD Codes: E11.65 - Type 2 diabetes mellitus with hyperglycemia SNOMED: 66691525, 859755391 (4) MDD (major depressive disorder), recurrent episode, moderate ICD Codes: F33.1 - Major depressive disorder, recurrent, moderate SNOMED: 93752673, [id number] Status: stable, unchanged Assessment/Plan: reduce Levemir to 35 units bid continue Novolog 15 units ac tid - hold if not eating continue NISS ac / hs Subjective Allergies: Coded Allergies: METFORMIN (Verified Allergy, Unknown, 10/09/18) Vomiting All Systems: reviewed and negative except above Subjective events noted insulin requirement has diminished Item Value Date Time Bedside Blood Glucose 140 mg/dl H 08/13/19 0636 Bedside Blood Glucose 122 mg/dl H 08/12/19 2223 Bedside Blood Glucose 101 mg/dl 08/12/19 1856 Bedside Blood Glucose 132 mg/dl H 08/12/19 1121 Bedside Blood Glucose 114 mg/dl 08/12/19 0941 Bedside Blood Glucose 114 mg/dl 08/12/19 0630 Objective Last 24 Hour Vital Signs Date Time Temp Pulse Resp B/P (MAP) Pulse Ox O2 Delivery O2 Flow Rate FiO2 08/13/19 04:00 85 08/13/19 04:00 99.5 92 20 126/78 (94) 94 08/13/19 00:00 96 08/13/19 00:00 100.1 98 18 121/74 (90) 93 95 08/13/19 00:00 100.1 98 18 127/89 (102) 96 08/12/19 21:00 Room Air 08/12/19 20:00 100.3 98 18 127/89 (102) 96 08/12/19 20:00 98 08/12/19 16:00 95 08/12/19 16:00 96.7 95 18 138/83 (101) 95 08/12/19 12:00 99.5 94 20 106/65 (79) 94 08/12/19 11:34 95 08/12/19 09:27 100.0 08/12/19 09:20 105 08/12/19 09:00 Room Air 08/12/19 08:00 101.7 105 18 133/63 (86) 95 Intake and Output 08/12/19 08/13/19 18:59 06:59 Intake Total 480 ml Balance 480 ml Intake Oral 480 ml Laboratory Tests 08/13/19 00:18: Urine Color Yellow, Urine Appearance Slightly cloudy, Urine pH 5, Urine Specific Rowan 1.015, Urine Protein 2+H, Urine Glucose (UA) Negative, Urine Ketones Negative, Urine Blood 2+H, Urine Nitrite Negative, Urine Bilirubin Negative, Urine Urobilinogen Normal, Urine Leukocyte Esterase Negative, Urine RBC 2-4H, Urine WBC 0, Urine Squamous Epithelial Cells None, Urine Amorphous Sediment ManyH, Urine Bacteria ManyH, Urine Eosinophils None seen, Urine Random Sodium 23 Height (Feet): 6 Height (Inches): 1.00 Weight (Pounds): 215 General Appearance: no apparent distress Neck: normal alignment Abdomen: normal bowel sounds Pelvis: normal external exam Objective Current Medications Medications (Trade) Dose Ordered Sig/Aylin Route PRN Reason Start Time Stop Time Status Last Admin Dose Admin Acetaminophen (Tylenol) 650 mg Q4H PRN ORAL Mild Pain/Temp > 100.5 08/12/19 00:15 09/09/19 08:14 08/12/19 22:33 Aspirin (Ecotrin) 81 mg DAILY ORAL 08/12/19 19:30 09/11/19 19:29 08/12/19 22:20 Atorvastatin Calcium (Lipitor) 40 mg BEDTIME ORAL 08/12/19 21:00 09/09/19 20:59 08/12/19 22:20 Bisacodyl (Dulcolax) 10 mg DAILY PRN RECTAL Constipation 08/11/19 23:00 09/10/19 22:59 Daptomycin 970 mg/ Sodium Chloride 55 ml @ 100 mls/hr Q24H IV 08/12/19 21:00 08/18/19 20:59 08/12/19 22:19 Dextrose (Dextrose 50%) 25 ml Q30M PRN IV Hypoglycemia 08/11/19 23:15 09/09/19 07:14 Dextrose (Dextrose 50%) 50 ml Q30M PRN IV Hypoglycemia 08/11/19 23:15 09/09/19 07:14 Docusate Sodium (Colace) 100 mg TWICE A DAY ORAL 08/12/19 18:45 09/11/19 18:44 08/12/19 18:55 Escitalopram Oxalate (Lexapro) 10 mg DAILY ORAL 08/12/19 09:00 09/09/19 08:59 08/12/19 08:54 Famotidine (Pepcid) 20 mg DAILY@0630 ORAL 08/12/19 06:30 09/10/19 06:29 08/13/19 06:32 Fish Oil (Fish Oil) 1,000 mg BID ORAL 08/12/19 18:45 09/11/19 18:44 Gabapentin (Neurontin) 300 mg BID ORAL 08/12/19 18:46 09/11/19 18:45 08/12/19 18:56 Gabapentin (Neurontin) 600 mg BEDTIME ORAL 08/12/19 21:00 09/09/19 20:59 08/12/19 22:20 Heparin Sodium (Porcine) (Heparin 5000 units/ml) 5,000 units EVERY 12 HOURS SUBQ 08/12/19 09:00 09/09/19 08:59 08/12/19 22:22 Hydralazine HCl (Apresoline) 25 mg Q4H PRN ORAL bp over 160 syst 08/11/19 23:45 09/09/19 11:44 Insulin Aspart (NovoLOG) BEFORE MEALS AND HS SUBQ 08/12/19 06:30 09/09/19 11:29 08/13/19 06:35 Insulin Aspart (NovoLOG) 15 units NOVOTIAC SUBQ 08/12/19 11:50 09/09/19 11:49 08/13/19 06:36 Insulin Detemir (Levemir) 50 units BID SUBQ 08/12/19 09:00 09/09/19 08:59 08/12/19 09:41 Lorazepam (Ativan 2mg/ml 1ml) 1 mg ONCE IV 08/13/19 09:00 08/13/19 11:00 Meropenem 1 gm/ Sodium Chloride 55 ml @ 110 mls/hr Q12HR@1100,2300 IVPB 08/13/19 01:00 08/18/19 00:59 08/13/19 02:39 Multivitamins Therapeutic (Therapeutic Multivitamin) 1 ea BID ORAL 08/12/19 18:46 09/11/19 18:45 08/12/19 18:56 Quetiapine Fumarate (SEROquel) 50 mg Q12HR ORAL 08/12/19 09:00 09/11/19 08:59 08/12/19 22:20 Sodium Chloride 1,000 ml @ 100 mls/hr Q10H IV 08/12/19 12:15 09/11/19 12:14 08/12/19 12:30 Tamsulosin HCl (Flomax) 0.4 mg BEDTIME ORAL 08/12/19 21:00 09/09/19 20:59 08/12/19 22:20 Binh Borges MD Aug 13, 2019 06:44
--- NOTE | 2019-08-13 06:45 | Consultation ---
DATE OF CONSULTATION: 08/12/2019 CARDIOLOGY CONSULTATION CONSULTING PHYSICIAN: Corey Augustine M.D. REFERRING PHYSICIAN: Dexter Haas M.D. REASON FOR CONSULTATION: Management of elevated troponin I level. HISTORY OF PRESENT ILLNESS: The patient is a very unfortunate 48-year-old gentleman with a history of uncontrolled diabetes mellitus with associated diabetic neuropathy, Charcot's joint, history of osteomyelitis of the foot, diabetic foot ulcer, who was recently discharged from the hospital after receiving antibiotic therapy via PICC line for diabetic foot ulcer infection. According to the ER records, PICC line was removed about two days prior to his admission to this facility. He presents with fever and severe hyperglycemia as well as nonhealing foot ulcer infection with drainage. At the time of arrival to this facility, blood pressure was 82/54 mmHg, heart rate was 82. He was diagnosed with severe sepsis with impending septic shock and poorly uncontrolled diabetes mellitus. Laboratory data in the emergency department showed leukocytosis with WBC count of 11.5 and left shift with 83.5% neutrophils as well as hyperglycemia with blood sugar of 342 with associated hyponatremia with serum sodium of 129 and renal failure with BUN and creatinine of 34 and 2.6 respectively. His first troponin I level was elevated at 0.246. His brain natriuretic peptide was 4530. He was admitted to the hospital for evaluation and management of sepsis and septic shock. Cardiology consultation was made at the request of Dr. Haas for management of elevated troponin I level and possible congestive heart failure. The patient admits to have experienced shortness of breath with his activities, although it is limited due to his bilateral Charcot joint and inability to sustain long distance walk. He denies any prior history of coronary artery disease or congestive heart failure in the past. Initial 12-lead electrocardiogram showed sinus rhythm with no acute ST and T-wave abnormalities. A 2D echocardiography done on August 10, 2019 revealed normal LV systolic function with LVEF approximately 55%. Grade I LV diastolic dysfunction and normal right ventricular systolic pressure measured at 12 mmHg. PAST MEDICAL HISTORY: 1. Diabetes mellitus. 2. Diabetic neuropathy. 3. Charcot's joints. 4. Hypertension. 5. Chronic kidney disease. 6. COPD. 7. History of chronic osteomyelitis. 8. Diabetic foot ulcer infection. 9. Muscular weakness. ALLERGIES: Metformin. PAST SURGICAL HISTORY: None. FAMILY HISTORY: No premature coronary artery disease in first-degree relatives. SOCIAL HISTORY: Denies any tobacco, alcohol, or illicit drug use. REVIEW OF SYSTEMS: HEENT: Denies any headache, diplopia, or blurred vision. CONSTITUTIONAL: He had fever, chills, sweaty, and generalized weakness. CARDIOVASCULAR: Denies any chest pain. Positive for dyspnea on exertion. Denies any PND, orthopnea, leg edema, or syncope. PULMONARY: Denies any cough, hemoptysis, or wheezing. GASTROINTESTINAL: Denies any nausea, vomiting, diarrhea, constipation, abdominal pain, or GI bleed. GENITOURINARY: Denies any hematuria, dysuria, or incontinence. NEUROLOGY: Positive for motor dysfunction of lower extremities as well as paresthesia in both legs. Positive neuropathy of lower extremities. No signs of lateralization. MUSCULOSKELETAL: Muscle weakness. Diabetic foot ulcer in the left foot as well as right foot. ENDOCRINE: Positive for diabetes mellitus, uncontrolled. MEDICATIONS: List of medications at the long term, which is [facility], includes acetaminophen 650 mg q.4 h. p.r.n. pain, vitamin C 250 mg p.o. daily, Lipitor 40 mg at bedtime, Lumigan eye drops, bisacodyl 10 mg rectal daily p.r.n. constipation, Combigan eye drops, Azopt eye drops, Daptomycin 600 mg IV daily, Cepacol sore throat and cough lozenges q.6 hours p.r.n. cough, Colace 100 mg twice daily, Lexapro 10 mg p.o. daily, Neurontin 600 mg every evening, gabapentin 300 mg twice daily, Union 5/325 one tablet q.8 h. p.r.n. pain, Motrin 600 mg q.6 h. p.r.n. pain, NovoLog insulin 30 units subcutaneous t.i.d., Levemir FlexPen 70 units subcutaneous b.i.d., lisinopril 20 mg p.o. daily, loperamide 2 mg q.4 h. p.r.n. diarrhea, Lotemax drops, milk of magnesia 30 mL oral daily p.r.n. constipation, multivitamin with minerals one tablet twice daily, Fleet Enema 133 mL rectal p.r.n. daily, omeprazole 40 mg p.o. daily, Zofran 4 mg q.8 h.p.r.n. nausea, vomiting, Seroquel 100 mg twice daily, and ranitidine 150 mg twice daily. PHYSICAL EXAMINATION: VITAL SIGNS: At the time of presentation to this facility, blood pressure 82/54, respirations 18, pulse of 82, temperature 98.1 degrees Fahrenheit, and O2 saturation 92% on room air. GENERAL: The patient is septic and ill-appearing 48-year-old gentleman, who is somewhat confused on the outset, but following commands, diaphoretic. HEENT: Atraumatic, normocephalic. Pupils are equal, round, and reactive to light and accommodation. Extraocular muscles intact. NECK: JVP less than 5 cm. No carotid bruits. Carotid upstrokes 2+. CARDIOVASCULAR: Normal S1, S2. Regular rate and rhythm. No murmurs, gallops, or rubs. PMI is at fourth intercostal space at the midclavicular line. LUNGS: Clear to auscultation bilaterally. ABDOMEN: Soft, nontender, and nondistended. No hepatosplenomegaly. Positive bowel sounds. EXTREMITIES: Presence of deformed small joints of both feet with bilateral ulceration of the foot with drainage. LABORATORY FINDINGS: Sodium 129, potassium 5.1, chloride 95, bicarbonate 26, BUN of 34, creatinine 2.6, glucose is 342. Lactic acid 1.5, calcium 9.2. Troponin I 0.246, 0.225. ProBNP was 4530. Triglycerides 261, total cholesterol 107, LDL was 30, HDL 9. INR is 1.1. ASSESSMENT AND PLAN: The patient is a very unfortunate 48-year-old gentleman, seen in Cardiology consultation. 1. Elevated troponin I level in this patient. Multiple etiologies could be troponin leakage due to renal failure versus type 2 non-ST elevation myocardial infarction or demand ischemia in the setting of coronary artery disease or due to underlying infection. Given the patient's current infection and uncontrolled hyperglycemia and sepsis, we would like to be conservative at this point. He may benefit from ischemic workup in the future once the infection is eradicated. We will consider myocardial perfusion imaging study using pharmacological agent such as Lexiscan. A 2D echocardiography does not show any wall motion abnormalities with normal LV systolic function and LVEF approximately 55%. I will consider aspirin and continuation of atorvastatin at 40 mg daily. We would like to use beta-katie for double product control once hemodynamically more stable. 2. Hypertension, impending septic shock. I would consider hydration. In view of hyperglycemia, the patient may have associated intravascular volume contraction, also increase in the with concomitant fever and diaphoresis. Continue hydration, IV antibiotic therapy. Blood pressure has responded well to hydration. The latest blood pressure is 127/89 mmHg. The patient remains to be tachycardic with a rate of 98. The fever has subsided, currently demonstrates low-grade fever. 3. Uncontrolled diabetes mellitus. Endocrine consultation. 4. Most likely acute kidney injury versus chronic kidney disease. Nephrology consultation. I would discontinue , appeared in the list of his medication in Nursing Facility. 5. Hypertension. At this time, the patient will benefit from calcium-channel katie. We will place a hold on BALJINDER inhibitor. I would like to thank Dr. Haas for allowing me to participate in the care of this patient. Corey Augustine M.D. DR: MELISSA JOB#: [id number] CC:
--- NOTE | 2019-08-13 07:38 | NUR ---
NURSE NOTES: Received report from Edward ANTONIO. AOX4 and able to make need known. Pt in bed. X-ray techs are at the bed side for CXR. No c/o pain. No acute distress noted. Call light within easy reach. IV site in right hand with 24G SL asymptomatic and patent. on room air and denied SOB. Dressing on both are intact and patent. Will continue to plan of care.
--- NOTE | 2019-08-13 07:54 | NUR ---
RADIOLOGY DEPART., CHEST X-RAY COMPLETED. Jose GATICA/Vamsi KELLER
--- NOTE | 2019-08-13 07:55 | NUR ---
HAND-OFF: Report given PACO Pedro.
[2019-08-13 08:00] VITALS: BP 114/71
[2019-08-13] MEDS: Multivitamin w/Minerals tab ORAL SCH ×2 (08:44→17:26)
[2019-08-13] MEDS: Docusate 100mg cap ORAL SCH ×3 (08:45→17:26)
[2019-08-13] MEDS: Aspirin EC 81mg tab ORAL SCH (08:45)
[2019-08-13] MEDS: Heparin 5000 units/ml inj SUBQ SCH ×2 (08:46→21:00)
[2019-08-13] MEDS ORDERED: Levemir Flexpen SUBQ SCH ×2 (09:00→18:00)
[2019-08-13] MEDS ORDERED: LORazepam Inj 2mg/ml 1ml IV SCH (09:00)
--- NOTE | 2019-08-13 10:04 | NUR ---
CASE MANAGEMENT: REVIEW 08/13/19 SI: SEPSIS, ACUTE RF A 101.1 96 18 121/74 96%RA 08/12/19: NA+133; BUN 46; CRE 4.5; ALK PHOS 141; AST 115; RBC 3.41; H/H 9.3/28.3 08/11/19 TROP+=0.225 IS: HEPARIN SQ Q12 IV DAPTOMYCIN Q24 IV MEROPENEM Q12 HYDRALAZINE PO Q4/PRN NOVOLOG QD TIAC LEVEMIR SQ BID LIPITOR PO HS NEURONTIN PO BID SEROQUEL PO Q12 LEXAPRO PO QD IVF NS @100/HR FLOMAX PO HS ASPIRIN PO QD : TX TO 2E TELE UNIT PLAN: MRI FOOT PENDING PODIATRY CONSULT
[2019-08-13] MEDS ORDERED: Lidocaine 1% Plain 30 ml INJ SCH (10:15)
--- NOTE | 2019-08-13 10:25 | NUR ---
NURSE NOTES: Pt went to CT scan
--- NOTE | 2019-08-13 10:25 | NUR ---
NURSE NOTES: Pt went to MRI
[2019-08-13] MEDS ORDERED: Levemir Flexpen SUBQ ONE (10:30)
--- NOTE | 2019-08-13 10:38 | General Progress Note ---
Assessment/Plan Status: stable, unchanged Assessment/Plan: S: I am ok O: Refusing to get insulin . Pain is well controlled . PHYSICAL EXAMINATION: . HEAD AND NECK: multiple molars with plaques, Atraumatic and normocephalic. CHEST: Clear to auscultation. No wheezing. No crackles.HEART: S1 and S2. Regular rate and rhythm. No S3. No S4. ABDOMEN: Soft. No organomegaly.MUSCULOSKELETAL: Positive for bilater Charcot' s foot. Positive for stump of the prior tarsometatarsal resections. open wound in plantar aspect of left foot NEUROLOGIC: The patient is awake, alert, and oriented x3.PSYCHIATRIC: Mood and affect is normal LABORATORY DATA: Dated 08/12/2019 reviewed Echo from 08/12/19 reviewed A/P: 1- Sever Gram negative Sepsis 2. Acute cellulitis with or with out Acute OM of left foot. 2- DM- uncontrolled 3. Non compliance with medications 3- Charcot Foot- Left sided 4- HTN 5- Psych 6. Acute on Chronic KD Plan: Discussed the care with Podiatry over the phone yesterday. Agree with re-try to obtain of MRI of the foot Nephrology , Endo notes are reviewed current empiricall abx Will monitor serum troponin level cardiology, Dr Augustine consulted and notified Subjective Allergies: Coded Allergies: METFORMIN (Verified Allergy, Unknown, 10/09/18) Vomiting Objective Last 24 Hour Vital Signs Date Time Temp Pulse Resp B/P (MAP) Pulse Ox O2 Delivery O2 Flow Rate FiO2 08/13/19 04:00 85 08/13/19 04:00 99.5 92 20 126/78 (94) 94 08/13/19 00:00 96 08/13/19 00:00 100.1 98 18 121/74 (90) 93 95 08/13/19 00:00 100.1 98 18 127/89 (102) 96 08/12/19 21:00 Room Air 08/12/19 20:00 100.3 98 18 127/89 (102) 96 08/12/19 20:00 98 08/12/19 16:00 95 08/12/19 16:00 96.7 95 18 138/83 (101) 95 08/12/19 12:00 99.5 94 20 106/65 (79) 94 08/12/19 11:34 95 Intake and Output 08/12/19 08/13/19 18:59 06:59 Intake Total 480 ml 140 ml Balance 480 ml 140 ml Intake Oral 480 ml 140 ml # Voids 1 Laboratory Tests 08/13/19 00:18: Urine Color Yellow, Urine Appearance Slightly cloudy, Urine pH 5, Urine Specific Mobile 1.015, Urine Protein 2+H, Urine Glucose (UA) Negative, Urine Ketones Negative, Urine Blood 2+H, Urine Nitrite Negative, Urine Bilirubin Negative, Urine Urobilinogen Normal, Urine Leukocyte Esterase Negative, Urine RBC 2-4H, Urine WBC 0, Urine Squamous Epithelial Cells None, Urine Amorphous Sediment ManyH, Urine Bacteria ManyH, Urine Eosinophils None seen, Urine Random Sodium 23 Height (Feet): 6 Height (Inches): 1.00 Weight (Pounds): 233 Dexter Haas MD Aug 13, 2019 10:38
--- NOTE | 2019-08-13 11:53 | Diagnostic Imaging Report ---
Indication: Dyspnea Comparison: 06/01/2019 A single view chest radiograph was obtained. Findings: Cardiomediastinal appearance is within normal limits for age. The lungs are clear. Pulmonary vascularity is appropriate. The diaphragmatic contour is smooth and costophrenic angles are sharp. No pleural effusions are identified. The bones are unremarkable. Impression: No acute findings
[2019-08-13] MEDS ORDERED: Heparin1,000 units/500ml Premix(Conc:2 units/ml) IV SCH (13:15)
--- NOTE | 2019-08-13 13:23 | Nephrology Progress Note ---
Assessment/Plan Problem List: (1) Renal failure (ARF), acute on chronic (2) Diabetic nephropathy (3) Cellulitis of lower extremity Assessment Acute on chronic renal failure- Diabetic Nephropathy DM OOC Anemia Electrolyte imbalance HTN Plan today's labs pending Refuses ch- bladder scan: Zero Hydrate Keep BP and BS in check avoid nephrotoxics monitor renal parameters 2D echo Left ventricular ejection fraction is estimated to be 55%. COOPER kidney unremarkable Urine studies NS and or Albumin bolus Subjective ROS Limited/Unobtainable: No Constitutional: Reports: malaise Objective Objective Last 24 Hour Vital Signs Date Time Temp Pulse Resp B/P (MAP) Pulse Ox O2 Delivery O2 Flow Rate FiO2 08/13/19 09:00 Room Air 08/13/19 08:00 97.0 89 22 114/71 (85) 93 08/13/19 08:00 92 08/13/19 04:00 85 08/13/19 04:00 99.5 92 20 126/78 (94) 94 08/13/19 00:00 96 08/13/19 00:00 100.1 98 18 121/74 (90) 93 95 08/13/19 00:00 100.1 98 18 127/89 (102) 96 08/12/19 21:00 Room Air 08/12/19 20:00 100.3 98 18 127/89 (102) 96 08/12/19 20:00 98 08/12/19 16:00 95 08/12/19 16:00 96.7 95 18 138/83 (101) 95 Intake and Output 08/12/19 08/13/19 19:00 07:00 Intake Total 480 ml 140 ml Balance 480 ml 140 ml Intake Oral 480 ml 140 ml # Voids 1 Laboratory Tests 08/13/19 00:18: Urine Color Yellow, Urine Appearance Slightly cloudy, Urine pH 5, Urine Specific Mcalester 1.015, Urine Protein 2+H, Urine Glucose (UA) Negative, Urine Ketones Negative, Urine Blood 2+H, Urine Nitrite Negative, Urine Bilirubin Negative, Urine Urobilinogen Normal, Urine Leukocyte Esterase Negative, Urine RBC 2-4H, Urine WBC 0, Urine Squamous Epithelial Cells None, Urine Amorphous Sediment ManyH, Urine Bacteria ManyH, Urine Eosinophils None seen, Urine Random Sodium 23 Height (Feet): 6 Height (Inches): 1.00 Weight (Pounds): 233 General Appearance: no apparent distress Cardiovascular: regular rhythm Respiratory/Chest: decreased breath sounds Abdomen: soft Objective no change Ernesto Frost MD Aug 13, 2019 13:23
[2019-08-13 14:06] VITALS: BP 131/76
[2019-08-13] MEDS ORDERED: COMBIGAN EYE DRO5 ML RIGHT EYE (14:14)
[2019-08-13] MEDS ORDERED: AZOPT10 ML RIGHT EYE (14:15)
--- NOTE | 2019-08-13 14:34 | NUR ---
RD ASSESSMENT & RECOMMENDATIONS SEE CARE ACTIVITY FOR COMPLETE ASSESSMENT DAILY ESTIMATED NEEDS: Needs based on Wound, uncontrolled DM, ARF 85kg abw 20-25 kcals/kg 4013-6795 total kcals 1-1.2 g protein/kg 85-102 g total protein 25-30 mL/kg 8331-6736 total fluid mLs NUTRITION DIAGNOSIS: * Increased protein intake needs R/T wound healing as evidenced by admitted w/ BL foot plantar ulcers. * Altered nutrition related lab values R/T diabetes, renal dysfunction as evidenced by elev A1C of 10.3, elev BGs (342 ->128, 154, improved), elev creat (2.6-> 4.5 trend up) CURRENT DIET: CCHO MED PO DIET RECOMMENDATIONS: CCHO MED + LOW NA ADDITIONAL RECOMMENDATIONS: 1) Calibrated bedscale wt 2) Wound healing: Add Vit C 250mg QD, Continue MVI : Edson 1pkt BID if pt receptive (h/o refusing Edson) 3) Monitor BGs closely -> improved since adm 4) Monitor renal fxn and lytes -> renal fxn worsening at this time .
--- NOTE | 2019-08-13 14:40 | Infectious Diseases Prog Note ---
Assessment/Plan Problems: (1) Acute on chronic osteomyelitis Assessment & Plan: of the left foot , was recently debrided by nurse advisor on his last admission , unfortunately no tissue or bone sample for culture was done on his last admission to guide antibiotics treatment due to the chronicity of his left foot osteomyelitis and the need for fpc oral suppression after knowing the causing organisms with bone culture, will discuss with nurse advisor the need for bone biopsy and culture pending MRI results if no amputation planned . continue daptomycin since his wound in rehab grew VRE , and continue meropenem for now . monitor ck weekly (2) Renal failure (ARF), acute on chronic Assessment & Plan: avoid nephrotoxics , continue hydration, close monitoring of renal function, renal is following (3) Poorly controlled diabetes mellitus Assessment & Plan: recommend tight glycemic control to keep blood glucose between 100-140 (4) Diabetic foot infection Assessment & Plan: with ESBL producing Klebsiella Pneumonia and citrobacter diversus , already on wide spectrum antibiotics , keep leg elevated while in bed, tight glycemic control (5) Sepsis Assessment & Plan: with Citrobacter diversus , suspect source is his left foot , continue meropenem and daptomycin pending final culture results . may need surgical debridement of the left foot for source control , or even amputation , pending MRI results Subjective Constitutional: Reports: fatigue HEENT: Reports: no symptoms Respiratory: Reports: no symptoms Breasts: Reports: no symptoms Cardiovascular: Reports: no symptoms Gastrointestinal/Abdominal: Reports: no symptoms Genitourinary: Reports: no symptoms Neurologic: Reports: no symptoms Psychiatric: Reports: no symptoms Skin: Reports: ulcer Endocrine: Reports: no symptoms Hematologic: Reports: no symptoms Musculoskeletal: Reports: pain Allergies: Coded Allergies: METFORMIN (Verified Allergy, Unknown, 10/09/18) Vomiting Objective Vital Signs Last 24 Hour Vital Signs Date Time Temp Pulse Resp B/P (MAP) Pulse Ox O2 Delivery O2 Flow Rate FiO2 08/13/19 14:06 97.0 91 20 131/76 (94) 94 08/13/19 09:00 Room Air 08/13/19 08:00 97.0 89 22 114/71 (85) 93 08/13/19 08:00 92 08/13/19 04:00 85 08/13/19 04:00 99.5 92 20 126/78 (94) 94 08/13/19 00:00 96 08/13/19 00:00 100.1 98 18 121/74 (90) 93 95 08/13/19 00:00 100.1 98 18 127/89 (102) 96 08/12/19 21:00 Room Air 08/12/19 20:00 100.3 98 18 127/89 (102) 96 08/12/19 20:00 98 08/12/19 16:00 95 08/12/19 16:00 96.7 95 18 138/83 (101) 95 Height (Feet): 6 Height (Inches): 1.00 Weight (Pounds): 233 General Appearance: WD/WN, no acute distress HEENT: normocephalic, atraumatic, anicteric, mucous membranes moist Respiratory/Chest: chest wall non-tender, lungs clear, normal breath sounds, no respiratory distress, no accessory muscle use Cardiovascular: normal peripheral pulses, normal rate, regular rhythm, no gallop/murmur, no JVD Abdomen: normal bowel sounds, soft, non tender, no organomegaly, non distended , no mass Extremities: no cyanosis, no clubbing Skin: no rash, no lesions, no ulcers Neurologic/Psychiatric: alert, responsive Lymphatic: no neck adenopathy, no groin adenopathy Musculoskeletal: normal muscle bulk, no effusion Microbiology Date/Time Source Procedure Growth Status 08/11/19 06:10 Wound Gram Stain - Final Resulted 08/11/19 06:10 Wound Culture - Preliminary Citrobacter Diversus Gram Negative Bacillus 2 Resulted Laboratory Tests Test 08/13/19 00:18 Urine Color Yellow Urine Appearance Slightly cloudy Urine pH 5 (4.5-8.0) Urine Specific Hatch 1.015 (1.005-1.035) Urine Protein 2+ (NEGATIVE) H Urine Glucose (UA) Negative (NEGATIVE) Urine Ketones Negative (NEGATIVE) Urine Blood 2+ (NEGATIVE) H Urine Nitrite Negative (NEGATIVE) Urine Bilirubin Negative (NEGATIVE) Urine Urobilinogen Normal MG/DL (0.0-1.0) Urine Leukocyte Esterase Negative (NEGATIVE) Urine RBC 2-4 /HPF (0 - 0) H Urine WBC 0 /HPF (0 - 0) Urine Squamous Epithelial Cells None /LPF (NONE/OCC) Urine Amorphous Sediment Many /LPF (NONE) H Urine Bacteria Many /HPF (NONE) H Urine Eosinophils None seen (NONE SEEN) Urine Random Sodium 23 mmol/L (20-110) Current Medications Medications (Trade) Dose Ordered Sig/Aylin Route PRN Reason Start Time Stop Time Status Last Admin Dose Admin Acetaminophen (Tylenol) 650 mg Q4H PRN ORAL Mild Pain/Temp > 100.5 08/12/19 00:15 09/09/19 08:14 08/12/19 22:33 Aspirin (Ecotrin) 81 mg DAILY ORAL 08/12/19 19:30 09/11/19 19:29 08/13/19 08:45 Atorvastatin Calcium (Lipitor) 40 mg BEDTIME ORAL 08/12/19 21:00 09/09/19 20:59 08/12/19 22:20 Bisacodyl (Dulcolax) 10 mg DAILY PRN RECTAL Constipation 08/11/19 23:00 09/10/19 22:59 Chlorhexidine Gluconate (Ariadna-Hex 2%) 1 applic DAILY@2000 TOPIC 08/13/19 20:00 09/12/19 19:59 Daptomycin 970 mg/ Sodium Chloride 55 ml @ 100 mls/hr Q24H IV 08/12/19 21:00 08/18/19 20:59 08/12/19 22:19 Dextrose (Dextrose 50%) 25 ml Q30M PRN IV Hypoglycemia 08/11/19 23:15 09/09/19 07:14 Dextrose (Dextrose 50%) 50 ml Q30M PRN IV Hypoglycemia 08/11/19 23:15 09/09/19 07:14 Docusate Sodium (Colace) 100 mg TWICE A DAY ORAL 08/12/19 18:45 09/11/19 18:44 08/12/19 18:55 Dorzolamide/ Timolol (Cosopt) 1 drop TWICE A DAY RIGHT EYE 08/13/19 18:00 09/12/19 17:59 Escitalopram Oxalate (Lexapro) 10 mg DAILY ORAL 08/12/19 09:00 09/09/19 08:59 08/13/19 08:45 Famotidine (Pepcid) 20 mg DAILY@0630 ORAL 08/12/19 06:30 09/10/19 06:29 08/13/19 06:32 Fish Oil (Fish Oil) 1,000 mg BID ORAL 08/12/19 18:45 09/11/19 18:44 08/13/19 08:45 Gabapentin (Neurontin) 300 mg BID ORAL 08/12/19 18:46 09/11/19 18:45 08/13/19 08:45 Gabapentin (Neurontin) 600 mg BEDTIME ORAL 08/12/19 21:00 09/09/19 20:59 08/12/19 22:20 Heparin Sodium (Porcine) (Heparin 5000 units/ml) 5,000 units EVERY 12 HOURS SUBQ 08/12/19 09:00 09/09/19 08:59 08/13/19 08:46 Heparin Sodium/ Sodium Chloride (Heparin 1000 units/500ml Premix) 1,000 unit ONCE IV 08/13/19 13:15 09/12/19 14:00 Hydralazine HCl (Apresoline) 25 mg Q4H PRN ORAL bp over 160 syst 08/11/19 23:45 09/09/19 11:44 Insulin Aspart (NovoLOG) BEFORE MEALS AND HS SUBQ 08/12/19 06:30 09/09/19 11:29 08/13/19 06:35 Insulin Aspart (NovoLOG) 15 units NOVOTIAC SUBQ 08/12/19 11:50 09/09/19 11:49 08/13/19 06:36 Insulin Detemir (Levemir) 35 units BID SUBQ 08/13/19 18:00 09/09/19 08:59 Latanoprost (Xalatan) 1 drop BEDTIME RIGHT EYE 08/13/19 21:00 09/12/19 20:59 Meropenem 1 gm/ Sodium Chloride 55 ml @ 110 mls/hr Q12HR@1100,2300 IVPB 08/13/19 01:00 08/18/19 00:59 08/13/19 13:58 Multivitamins Therapeutic (Therapeutic Multivitamin) 1 ea BID ORAL 08/12/19 18:46 09/11/19 18:45 08/13/19 08:44 Quetiapine Fumarate (SEROquel) 50 mg Q12HR ORAL 08/12/19 09:00 09/11/19 08:59 08/13/19 08:45 Sodium Chloride 1,000 ml @ 100 mls/hr Q10H IV 08/12/19 12:15 09/11/19 12:14 08/12/19 12:30 Tamsulosin HCl (Flomax) 0.4 mg BEDTIME ORAL 08/12/19 21:00 09/09/19 20:59 08/12/19 22:20 Kwasi Martinez M.D. Aug 13, 2019 14:40
[2019-08-13 15:17] LABS: ANION GAP 14 mmol/L (5-15); BLOOD UREA NITROGEN 58 mg/dL (7-18); CALCIUM 8.1 MG/DL (8.5-10.1); CARBON DIOXIDE 19 MMOL/L (21-32); CHLORIDE 97 MMOL/L (98-107); CREATININE 5.1 MG/DL (0.55-1.30); POTASSIUM 4.5 MMOL/L (3.5-5.1); SODIUM 130 MMOL/L (136-145)
--- NOTE | 2019-08-13 15:18 | NUR ---
PT NOTE Patient transferred to tele on 08/11/19. Will need MD clearance to resume PT due to transfer to higher level of care. Bret ANTONIO notified. MRI bilateral feet/ankles completed, requested clarification of WB status by remote sensing specialist from Bret ANTONIO, will follow.
[2019-08-13 15:21] LABS: ALANINE AMINOTRANSFERASE 103 U/L (12-78); ALBUMIN 1.9 G/DL (3.4-5.0); ALBUMIN/GLOBULIN RATIO 0.4 (1.0-2.7); ALKALINE PHOSPHATASE 173 U/L (46-116); ASPARTATE AMINO TRANSFERASE 118 U/L (15-37); BILIRUBIN,TOTAL 0.6 MG/DL (0.2-1.0)
[2019-08-13 15:23] LABS: CREATINE KINASE 122 U/L (26-308)
--- NOTE | 2019-08-13 15:33 | Diagnostic Imaging Report ---
Indication: Diabetic foot ulcer. Foot and ankle pain Technique: Right foot imaging utilizing multiplanar T1 fast spin-echo, proton and T2 fast spin-echo with fat saturation, and STIR. Study was done in 2 stations due to [id number] limitations, forefoot/midfoot and hindfoot ankle. Comparison: Plain x-ray of the right foot 06/03/2019. There are no prior MRIs for comparison. Findings: There is marked destruction of the tarsal bones which show catarino periarticular erosions, subluxations/dislocation, intra-articular fluid, and marked abnormal low T1/high T2 edema within bone marrow involving the proximal metatarsals and all of the tarsal bones including portion of the calcaneus and anterior talus. Plain film correlation is recommended. The appearance is in keeping with Charcot foot. The findings in Charcot foot on MRI may be very similar if not identical to acute osteomyelitis. Therefore in the setting of Charcot foot, making diagnosis of superimposed acute osteomyelitis is problematic and difficult at best. For example, in the plantar part of the midfoot, there is an area of ulceration noted. This is in the area of the midfoot just inferior to the cuboid. The subjacent cuboid just as the remainder of the metatarsals exhibit markedly abnormal signal due to edema from Charcot changes. This edema pattern could be due to superimposed osteomyelitis. Therefore, careful consideration must be made in the specific areas of suspected infection and location of the ulcers. The forefoot i.e. the phalanges and the distal aspect of the metatarsals show no definite evidence of acute osteomyelitis. IMPRESSION: Extensive destruction of the midfoot likely on the basis of neuropathic disease (Charcot foot). Suggest correlation with plain x-ray. The presence of superimposed osteomyelitis involving the area of the midfoot, anterior hindfoot and posterior forefoot is not excludable.
[2019-08-13 15:43] LABS: HEMATOCRIT 26.6 % (42.0-52.0); HEMOGLOBIN 8.9 G/DL (14.2-18.0); MEAN CORPUSCULAR VOLUME 84 FL (80-99); PLATELET COUNT 164 K/UL (150-450); RED BLOOD COUNT 3.16 M/UL (4.70-6.10); RED CELL DISTRIBUTION WIDTH 13.3 % (11.6-14.8); WHITE BLOOD COUNT 8.2 K/UL (4.8-10.8)
[2019-08-13 16:00] VITALS: BP 132/74
--- NOTE | 2019-08-13 16:26 | Diagnostic Imaging Report ---
Indication: Diabetic. Open wound plantar surface foot Technique: Left ankle/hindfoot imaging utilizing multiplanar T1 fast spin-echo, proton and T2 fast spin-echo with fat saturation, and STIR. Comparison: MRI ankle/hindfoot 06/02/2019 Findings: Direct comparison with previous study shows no change. There is prominent ulceration on the plantar aspect of the foot at the level of the distal calcaneus/cuboid without evidence of significant bone marrow edema involving the adjacent osseous structures. Most of the tarsal bones are destroyed with the residual tarsal bones fused and subluxed medially. There is fusion of the first metatarsal with the talus. There is marked deformity of the foot with superimposed arthrosis present. There is a minimal amount of T2 hyperintense edema within the cuboid as well as the base of the fourth metatarsal again demonstrated. Findings are probably on the basis of an old burnt out Charcot foot. No compelling evidence for acute osteomyelitis. Resection of the fifth metatarsal noted. Deformity and hypertrophy of the fourth metatarsal head noted. Skin ulceration along the lateral part of the forefoot demonstrated. There is no evidence of abscess or acute osteomyelitis. IMPRESSION: Advanced Charcot foot with superimposed degenerative arthrosis and deformity. Prominent plantar surface ulceration without compelling evidence for acute osteomyelitis involving the forefoot, midfoot or hindfoot. 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 No significant change from the prior exam.
[2019-08-13] MEDS ORDERED: Cosopt Opth Soln 10 mL Btl RIGHT EYE SCH (18:00)
--- NOTE | 2019-08-13 18:26 | Cardiology Progress Note ---
Assessment/Plan Assessment/Plan 1. Elevated troponin I level in this patient. Multiple etiologies could be troponin leakage due to renal failure versus type 2 non-ST elevation myocardial infarction or demand ischemia in the setting of coronary artery disease or due to underlying infection. Will consider MPI stress once infection is eradicated. Echo with normal LV systolic and diastolic function and LVEF ~55%, continue aspirin and atorvastatin. 2. Hypertension. 3. Uncontrolled diabetes mellitus. 4. CAMILLE on CKD, creat continues to rise, nephrology follow up. Subjective Subjective Sinus rhythm at rate of 95. Objective Last 24 Hour Vital Signs Date Time Temp Pulse Resp B/P (MAP) Pulse Ox O2 Delivery O2 Flow Rate FiO2 08/13/19 18:12 100.9 08/13/19 16:00 101.8 95 21 132/74 (93) 93 08/13/19 16:00 93 08/13/19 14:06 97.0 91 20 131/76 (94) 94 08/13/19 09:00 Room Air 08/13/19 08:00 97.0 89 22 114/71 (85) 93 08/13/19 08:00 92 08/13/19 04:00 85 08/13/19 04:00 99.5 92 20 126/78 (94) 94 08/13/19 00:00 96 08/13/19 00:00 100.1 98 18 121/74 (90) 93 95 08/13/19 00:00 100.1 98 18 127/89 (102) 96 08/12/19 21:00 Room Air 08/12/19 20:00 100.3 98 18 127/89 (102) 96 08/12/19 20:00 98 Intake and Output 08/12/19 08/13/19 19:00 07:00 Intake Total 480 ml 195 ml Balance 480 ml 195 ml Intake Oral 480 ml 140 ml IV Total 55 ml # Voids 1 2D Echo: LVEF 60%, RVSP 10 mmHg, Normal LV diastolic fxn Laboratory Tests Test 08/13/19 00:18 08/13/19 14:35 Urine Color Yellow Urine Appearance Slightly cloudy Urine pH 5 (4.5-8.0) Urine Specific [place] 1.015 (1.005-1.035) Urine Protein 2+ (NEGATIVE) H Urine Glucose (UA) Negative (NEGATIVE) Urine Ketones Negative (NEGATIVE) Urine Blood 2+ (NEGATIVE) H Urine Nitrite Negative (NEGATIVE) Urine Bilirubin Negative (NEGATIVE) Urine Urobilinogen Normal MG/DL (0.0-1.0) Urine Leukocyte Esterase Negative (NEGATIVE) Urine RBC 2-4 /HPF (0 - 0) H Urine WBC 0 /HPF (0 - 0) Urine Squamous Epithelial Cells None /LPF (NONE/OCC) Urine Amorphous Sediment Many /LPF (NONE) H Urine Bacteria Many /HPF (NONE) H Urine Eosinophils None seen (NONE SEEN) Urine Random Sodium 23 mmol/L (20-110) White Blood Count 8.2 K/UL (4.8-10.8) Red Blood Count 3.16 M/UL (4.70-6.10) L Hemoglobin 8.9 G/DL (14.2-18.0) L Hematocrit 26.6 % (42.0-52.0) L Mean Corpuscular Volume 84 FL (80-99) Mean Corpuscular Hemoglobin 28.2 PG (27.0-31.0) Mean Corpuscular Hemoglobin Concent 33.5 G/DL (32.0-36.0) Red Cell Distribution Width 13.3 % (11.6-14.8) Platelet Count 164 K/UL (150-450) Mean Platelet Volume 6.6 FL (6.5-10.1) Neutrophils (%) (Auto) % (45.0-75.0) Lymphocytes (%) (Auto) % (20.0-45.0) Monocytes (%) (Auto) % (1.0-10.0) Eosinophils (%) (Auto) % (0.0-3.0) Basophils (%) (Auto) % (0.0-2.0) Differential Total Cells Counted 100 Neutrophils % (Manual) 80 % (45-75) H Lymphocytes % (Manual) 9 % (20-45) L Monocytes % (Manual) 8 % (1-10) Eosinophils % (Manual) 1 % (0-3) Basophils % (Manual) 1 % (0-2) Band Neutrophils 1 % (0-8) Platelet Estimate Adequate Platelet Morphology Normal Hypochromasia 1+ Anisocytosis 1+ Sodium Level 130 MMOL/L (136-145) L Potassium Level 4.5 MMOL/L (3.5-5.1) Chloride Level 97 MMOL/L (98-107) L Carbon Dioxide Level 19 MMOL/L (21-32) L Anion Gap 14 mmol/L (5-15) Blood Urea Nitrogen 58 mg/dL (7-18) H Creatinine 5.1 MG/DL (0.55-1.30) H Estimat Glomerular Filtration Rate 12.1 mL/min (>60) Glucose Level 169 MG/DL (74-106) H Calcium Level 8.1 MG/DL (8.5-10.1) L Total Bilirubin 0.6 MG/DL (0.2-1.0) Aspartate Amino Transf (AST/SGOT) 118 U/L (15-37) H Alanine Aminotransferase (ALT/SGPT) 103 U/L (12-78) H Alkaline Phosphatase 173 U/L (46-116) H Total Creatine Kinase 122 U/L (26-308) Total Protein 6.8 G/DL (6.4-8.2) Albumin 1.9 G/DL (3.4-5.0) L Globulin 4.9 g/dL Albumin/Globulin Ratio 0.4 (1.0-2.7) L Microbiology Date/Time Source Procedure Growth Status 08/11/19 06:10 Wound Gram Stain - Final Resulted 08/11/19 06:10 Wound Culture - Preliminary Citrobacter Diversus Gram Negative Bacillus 2 Resulted Objective HEENT: Atraumatic, normocephalic. Pupils are equal, round, and reactive to light and accommodation. Extraocular muscles intact. NECK: JVP less than 5 cm. No carotid bruits. Carotid upstrokes 2+. CARDIOVASCULAR: Normal S1, S2. Regular rate and rhythm. No murmurs, gallops, or rubs. PMI is at fourth intercostal space at the midclavicular line. LUNGS: Clear to auscultation bilaterally. ABDOMEN: Soft, nontender, and nondistended. No hepatosplenomegaly. Positive bowel sounds. EXTREMITIES: Presence of deformed small joints of both feet with bilateral ulceration of the foot with drainage. Corey Augustine MD Aug 13, 2019 18:26
--- NOTE | 2019-08-13 19:39 | Surgery Progress Note ---
Surgery Progress Note Subjective Additional Comments febrile no leukocytosis non compliant with care at times MRI was able to be performed as patient would not allow prior Objective Last 24 Hour Vital Signs Date Time Temp Pulse Resp B/P (MAP) Pulse Ox O2 Delivery O2 Flow Rate FiO2 08/13/19 18:12 100.9 08/13/19 16:00 101.8 95 21 132/74 (93) 93 08/13/19 16:00 93 08/13/19 14:06 97.0 91 20 131/76 (94) 94 08/13/19 09:00 Room Air 08/13/19 08:00 97.0 89 22 114/71 (85) 93 08/13/19 08:00 92 08/13/19 04:00 85 08/13/19 04:00 99.5 92 20 126/78 (94) 94 08/13/19 00:00 96 08/13/19 00:00 100.1 98 18 121/74 (90) 93 95 08/13/19 00:00 100.1 98 18 127/89 (102) 96 08/12/19 21:00 Room Air 08/12/19 20:00 100.3 98 18 127/89 (102) 96 08/12/19 20:00 98 I&O Intake and Output 08/12/19 08/13/19 19:00 07:00 Intake Total 480 ml 195 ml Balance 480 ml 195 ml Intake Oral 480 ml 140 ml IV Total 55 ml # Voids 1 Dressing: saturated Wound: other Drains: other Cardiovascular: RSR Respiratory: decreased breath sounds Abdomen: soft, present bowel sounds, non-distended Extremities: edema, no cyanosis, other Laboratory Tests Test 08/13/19 00:18 08/13/19 14:35 Urine Color Yellow Urine Appearance Slightly cloudy Urine pH 5 (4.5-8.0) Urine Specific [place] 1.015 (1.005-1.035) Urine Protein 2+ (NEGATIVE) H Urine Glucose (UA) Negative (NEGATIVE) Urine Ketones Negative (NEGATIVE) Urine Blood 2+ (NEGATIVE) H Urine Nitrite Negative (NEGATIVE) Urine Bilirubin Negative (NEGATIVE) Urine Urobilinogen Normal MG/DL (0.0-1.0) Urine Leukocyte Esterase Negative (NEGATIVE) Urine RBC 2-4 /HPF (0 - 0) H Urine WBC 0 /HPF (0 - 0) Urine Squamous Epithelial Cells None /LPF (NONE/OCC) Urine Amorphous Sediment Many /LPF (NONE) H Urine Bacteria Many /HPF (NONE) H Urine Eosinophils None seen (NONE SEEN) Urine Random Sodium 23 mmol/L (20-110) White Blood Count 8.2 K/UL (4.8-10.8) Red Blood Count 3.16 M/UL (4.70-6.10) L Hemoglobin 8.9 G/DL (14.2-18.0) L Hematocrit 26.6 % (42.0-52.0) L Mean Corpuscular Volume 84 FL (80-99) Mean Corpuscular Hemoglobin 28.2 PG (27.0-31.0) Mean Corpuscular Hemoglobin Concent 33.5 G/DL (32.0-36.0) Red Cell Distribution Width 13.3 % (11.6-14.8) Platelet Count 164 K/UL (150-450) Mean Platelet Volume 6.6 FL (6.5-10.1) Neutrophils (%) (Auto) % (45.0-75.0) Lymphocytes (%) (Auto) % (20.0-45.0) Monocytes (%) (Auto) % (1.0-10.0) Eosinophils (%) (Auto) % (0.0-3.0) Basophils (%) (Auto) % (0.0-2.0) Differential Total Cells Counted 100 Neutrophils % (Manual) 80 % (45-75) H Lymphocytes % (Manual) 9 % (20-45) L Monocytes % (Manual) 8 % (1-10) Eosinophils % (Manual) 1 % (0-3) Basophils % (Manual) 1 % (0-2) Band Neutrophils 1 % (0-8) Platelet Estimate Adequate Platelet Morphology Normal Hypochromasia 1+ Anisocytosis 1+ Sodium Level 130 MMOL/L (136-145) L Potassium Level 4.5 MMOL/L (3.5-5.1) Chloride Level 97 MMOL/L (98-107) L Carbon Dioxide Level 19 MMOL/L (21-32) L Anion Gap 14 mmol/L (5-15) Blood Urea Nitrogen 58 mg/dL (7-18) H Creatinine 5.1 MG/DL (0.55-1.30) H Estimat Glomerular Filtration Rate 12.1 mL/min (>60) Glucose Level 169 MG/DL (74-106) H Calcium Level 8.1 MG/DL (8.5-10.1) L Total Bilirubin 0.6 MG/DL (0.2-1.0) Aspartate Amino Transf (AST/SGOT) 118 U/L (15-37) H Alanine Aminotransferase (ALT/SGPT) 103 U/L (12-78) H Alkaline Phosphatase 173 U/L (46-116) H Total Creatine Kinase 122 U/L (26-308) Total Protein 6.8 G/DL (6.4-8.2) Albumin 1.9 G/DL (3.4-5.0) L Globulin 4.9 g/dL Albumin/Globulin Ratio 0.4 (1.0-2.7) L Plan Problems: (1) Osteomyelitis of ankle or foot, left, acute Assessment & Plan: Left Foot plain films FINDINGS: Bones joints: No acute fracture. No dislocation. Surgical absence of the fifth phalanges and distal half of the fifth metatarsal bone. Marked deformity in the mid foot and base of the first metatarsal bone likely posttraumatic post surgical change. Soft tissues: Soft tissue swelling about the plantar aspect of the foot. No radiopaque foreign body. IMPRESSION: 1. Marked deformity in the mid foot likely postsurgical posttraumatic change. 2. No gross acute bony abnormality. 3. Status post resection of the fifth phalanges as described Extensive destruction of the midfoot likely on the basis of neuropathic disease (Charcot foot). Suggest correlation with plain x-ray. The presence of superimposed osteomyelitis involving the area of the midfoot, anterior hindfoot and posterior forefoot is not excludable. Advanced Charcot foot with superimposed degenerative arthrosis and deformity. Prominent plantar surface ulceration without compelling evidence for acute osteomyelitis involving the forefoot, midfoot or hindfoot. 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 (2) Foot ulcer due to secondary DM (3) Cellulitis of lower extremity Assessment & Plan: This is a 48-year-old male with known history of prior infections and surgical mention of his lower extremity Charcot's foot who is been recovering in a nursing facility until recently noted to have more edema cellulitis and drainage. Leukocytosis, HD stable, renal insufficiency, dehydration. Admitted for further care and management IV antibiotics as per infectious disease Podiatry consultation appreciated Trend labs MRI of right and left lower extremity noted We will continue with local wound care and antibiotics. Will discuss with podiatry potential necessity for further surgical intervention Thank you for allowing me to participate in patient's care will continue to follow with recognitions Melquiades Rush Aug 13, 2019 19:39
--- NOTE | 2019-08-13 19:48 | NUR ---
HAND-OFF: Report given to Anders RN. Pt remains stale.
--- NOTE | 2019-08-13 19:50 | NUR ---
NURSE NOTES: Received report from Sharon Gaming RN. Patient in bed AAO X2-3 with bouts of confusion, no complaints of acute pain or discomfort at this time. Kept clean, dry,and comfortable in bed. On RA with no S/S of SOB or resp. distress observed. IV line intact and patent with continuous cardiac monitoring in place per protocol. On bedrest for DM foot ulcers and non weight on BLE per Receiving Checker. External catheter device in place for immobility. Safety precaution in place; siderails X3 up, call light within reach, bed in lowest position, brakes and alarm on at all times. Needs and wants anticipated and attended, will continue plan of care and monitor for any changes noted.
[2019-08-13 20:00] VITALS: BP 111/68
[2019-08-13] MEDS: Dyna-Hex 2% Top Sol 2oz TOPIC SCH (20:00)
--- NOTE | 2019-08-13 20:30 | NUR ---
NURSE NOTES: Ariadna-hex solution held d/t no PICC line established at this time. PICC line placement scheduled tomorrow 08/14/19
[2019-08-13] MEDS: Tamsulosin 0.4mg cap ORAL SCH (21:33)
[2019-08-13] MEDS: Atorvastatin 20mg tab ORAL SCH (21:33)
[2019-08-13] MEDS: Latanoprost 0.005% Opth 2.5ml Soln RIGHT EYE SCH (21:42)
[2019-08-13] MEDS: DAPTOMYCIN IV SCH (21:42)
[2019-08-13] MEDS: NS IV SCH (21:42)
[2019-08-13] MEDS: Levemir Flexpen SUBQ SCH (21:44)
[2019-08-14] VITALS: BP 119/74
--- NOTE | 2019-08-14 00:15 | Progress Note ---
DATE: 08/13/2019 SUBJECTIVE: The patient is in bed, no acute distress. More alert and answers questions appropriately. MENTAL STATUS EXAMINATION: The patient alert and oriented x4. Mood is irritable. Affect is constricted. Congruent mood. Thought process is concrete. Thought content, no suicidal or homicidal ideation. ASSESSMENT: Stable. PLAN: 1. We will continue Seroquel 50 b.i.d. 2. Ativan p.r.n. 3. Continue to follow and readjust the medications. Olena Diaz M.D. DR: RODNEY JOB#: [id number] CC:
[2019-08-14 04:00] VITALS: BP 151/77
--- NOTE | 2019-08-14 04:21 | NUR ---
NURSE NOTES: Patient in bed asleep with no S/S of distress noted. Will continue to monitor.
[2019-08-14] MEDS ORDERED: Lidocaine 1% Plain 30 ml INJ ONE (06:00)
[2019-08-14] MEDS ORDERED: Heparin1,000 units/500ml Premix(Conc:2 units/ml) ONE (06:00)
[2019-08-14] MEDS ORDERED: Heparin1,000 units/500ml Premix(Conc:2 units/ml) IV PRN (06:30)
[2019-08-14] MEDS: NovoLOG Insulin Flexpen SUBQ SCH ×7 (06:38→20:51)
--- NOTE | 2019-08-14 06:43 | General Progress Note ---
Assessment/Plan Problem List: (1) Foot ulcer due to secondary DM ICD Codes: E13.621 - Other specified diabetes mellitus with foot ulcer; L97.509 - Non-pressure chronic ulcer of other part of unspecified foot with unspecified severity SNOMED: 3739368, 513785616 (2) Diabetic nephropathy ICD Codes: E11.21 - Type 2 diabetes mellitus with diabetic nephropathy SNOMED: 58494179, 104678609 (3) Poorly controlled diabetes mellitus ICD Codes: E11.65 - Type 2 diabetes mellitus with hyperglycemia SNOMED: 31497205, 137785855 (4) MDD (major depressive disorder), recurrent episode, moderate ICD Codes: F33.1 - Major depressive disorder, recurrent, moderate SNOMED: 02882122, 875020207 Status: stable, unchanged Assessment/Plan: continue Levemir 35 units bid continue Novolog 15 units ac tid - hold if not eating continue NISS ac / hs Subjective Allergies: Coded Allergies: METFORMIN (Verified Allergy, Unknown, 10/09/18) Vomiting All Systems: reviewed and negative except above Subjective events noted fair glycemic control Item Value Date Time Bedside Blood Glucose 184 mg/dl H 08/14/19 0639 Bedside Blood Glucose 197 mg/dl H 08/13/19 2144 Bedside Blood Glucose 148 mg/dl H 08/13/19 1728 Bedside Blood Glucose 140 mg/dl H 08/13/19 0636 Objective Last 24 Hour Vital Signs Date Time Temp Pulse Resp B/P (MAP) Pulse Ox O2 Delivery O2 Flow Rate FiO2 08/14/19 04:00 97.9 83 18 151/77 (101) 94 08/14/19 04:00 80 08/14/19 00:00 79 08/14/19 00:00 97.8 80 18 119/74 (89) 95 08/13/19 21:00 Room Air 08/13/19 20:00 98 08/13/19 20:00 100.3 96 18 111/68 (82) 96 08/13/19 18:12 100.9 08/13/19 16:00 101.8 95 21 132/74 (93) 93 08/13/19 16:00 93 08/13/19 14:06 97.0 91 20 131/76 (94) 94 08/13/19 09:00 Room Air 08/13/19 08:00 97.0 89 22 114/71 (85) 93 08/13/19 08:00 92 Intake and Output 08/13/19 08/14/19 18:59 06:59 Intake Total 1510 ml 1000 ml Output Total 600 ml Balance 1510 ml 400 ml Intake Oral 400 ml IV Total 1110 ml 1000 ml Output Urine Total 600 ml # Voids 2 Laboratory Tests 08/13/19 14:35: White Blood Count 8.2, Red Blood Count 3.16L, Hemoglobin 8.9L, Hematocrit 26.6L , Mean Corpuscular Volume 84, Mean Corpuscular Hemoglobin 28.2, Mean Corpuscular Hemoglobin Concent 33.5, Red Cell Distribution Width 13.3, Platelet Count 164, Mean Platelet Volume 6.6, Neutrophils (%) (Auto) , Lymphocytes (%) ( Auto) , Monocytes (%) (Auto) , Eosinophils (%) (Auto) , Basophils (%) (Auto) , Differential Total Cells Counted 100, Neutrophils % (Manual) 80H, Lymphocytes % (Manual) 9L, Monocytes % (Manual) 8, Eosinophils % (Manual) 1, Basophils % ( Manual) 1, Band Neutrophils 1, Platelet Estimate Adequate, Platelet Morphology Normal, Hypochromasia 1+, Anisocytosis 1+, Sodium Level 130L, Potassium Level 4.5, Chloride Level 97L, Carbon Dioxide Level 19L, Anion Gap 14, Blood Urea Nitrogen 58H, Creatinine 5.1H, Estimat Glomerular Filtration Rate 12.1, Glucose Level 169H, Calcium Level 8.1L, Total Bilirubin 0.6, Aspartate Amino Transf (AST /SGOT) 118H, Alanine Aminotransferase (ALT/SGPT) 103H, Alkaline Phosphatase 173H , Total Creatine Kinase 122, Total Protein 6.8, Albumin 1.9L, Globulin 4.9, Albumin/Globulin Ratio 0.4L Height (Feet): 6 Height (Inches): 1.00 Weight (Pounds): 233 General Appearance: no apparent distress Neck: normal alignment Cardiovascular: normal rate Respiratory/Chest: lungs clear Abdomen: normal bowel sounds Pelvis: normal external exam Objective Current Medications Medications (Trade) Dose Ordered Sig/Aylin Route PRN Reason Start Time Stop Time Status Last Admin Dose Admin Acetaminophen (Tylenol) 650 mg Q4H PRN ORAL Mild Pain/Temp > 100.5 08/12/19 00:15 09/09/19 08:14 08/13/19 17:42 Aspirin (Ecotrin) 81 mg DAILY ORAL 08/12/19 19:30 09/11/19 19:29 08/13/19 08:45 Atorvastatin Calcium (Lipitor) 40 mg BEDTIME ORAL 08/12/19 21:00 09/09/19 20:59 08/13/19 21:33 Bisacodyl (Dulcolax) 10 mg DAILY PRN RECTAL Constipation 08/11/19 23:00 09/10/19 22:59 Chlorhexidine Gluconate (Ariadna-Hex 2%) 1 applic DAILY@2000 TOPIC 08/13/19 20:00 09/12/19 19:59 Daptomycin 970 mg/ Sodium Chloride 55 ml @ 100 mls/hr Q24H IV 08/12/19 21:00 08/18/19 20:59 08/13/19 21:42 Dextrose (Dextrose 50%) 25 ml Q30M PRN IV Hypoglycemia 08/11/19 23:15 09/09/19 07:14 Dextrose (Dextrose 50%) 50 ml Q30M PRN IV Hypoglycemia 08/11/19 23:15 09/09/19 07:14 Docusate Sodium (Colace) 100 mg TWICE A DAY ORAL 08/12/19 18:45 09/11/19 18:44 08/12/19 18:55 Dorzolamide/ Timolol (Cosopt) 1 drop TWICE A DAY RIGHT EYE 08/14/19 09:00 09/13/19 08:59 Escitalopram Oxalate (Lexapro) 10 mg DAILY ORAL 08/12/19 09:00 09/09/19 08:59 08/13/19 08:45 Famotidine (Pepcid) 20 mg DAILY@0630 ORAL 08/12/19 06:30 09/10/19 06:29 08/14/19 06:19 Fish Oil (Fish Oil) 1,000 mg BID ORAL 08/12/19 18:45 09/11/19 18:44 08/13/19 17:26 Gabapentin (Neurontin) 300 mg BID ORAL 08/12/19 18:46 09/11/19 18:45 08/13/19 17:26 Gabapentin (Neurontin) 600 mg BEDTIME ORAL 08/12/19 21:00 09/09/19 20:59 08/13/19 21:35 Heparin Sodium (Porcine) (Heparin 5000 units/ml) 5,000 units EVERY 12 HOURS SUBQ 08/12/19 09:00 09/09/19 08:59 08/13/19 08:46 Heparin Sodium/ Sodium Chloride (Heparin 1000 units/500ml Premix) 1,000 unit ONCE PRN IV PICC PLACEMENT 08/14/19 06:30 08/16/19 23:59 Hydralazine HCl (Apresoline) 25 mg Q4H PRN ORAL bp over 160 syst 08/11/19 23:45 09/09/19 11:44 Insulin Aspart (NovoLOG) BEFORE MEALS AND HS SUBQ 08/12/19 06:30 09/09/19 11:29 08/14/19 06:38 Insulin Aspart (NovoLOG) 15 units NOVOTIAC SUBQ 08/12/19 11:50 09/09/19 11:49 08/14/19 06:39 Insulin Detemir (Levemir) 35 units Q12HR SUBQ 08/13/19 21:00 09/12/19 20:59 08/13/19 21:44 Latanoprost (Xalatan) 1 drop BEDTIME RIGHT EYE 08/13/19 21:00 09/12/19 20:59 08/13/19 21:42 Meropenem 1 gm/ Sodium Chloride 55 ml @ 110 mls/hr Q12HR@1100,2300 IVPB 08/13/19 01:00 08/18/19 00:59 08/13/19 23:51 Multivitamins Therapeutic (Therapeutic Multivitamin) 1 ea BID ORAL 08/12/19 18:46 09/11/19 18:45 08/13/19 17:26 Quetiapine Fumarate (SEROquel) 50 mg Q12HR ORAL 08/12/19 09:00 09/11/19 08:59 08/13/19 21:34 Sodium Chloride 1,000 ml @ 100 mls/hr Q10H IV 08/12/19 12:15 09/11/19 12:14 08/14/19 04:13 Tamsulosin HCl (Flomax) 0.4 mg BEDTIME ORAL 08/12/19 21:00 09/09/19 20:59 08/13/19 21:33 Binh Borges MD Aug 14, 2019 06:43
--- NOTE | 2019-08-14 07:30 | NUR ---
NURSE NOTES: RECEIVED PT WITH HOB ELEVATED 45 DEGREE AWAKE AND ALERT DENIES CP OR ANY DISCOMFORT AT THIS TIME.FULL AM BODY ASSESSMENT DONE.PT WITH BILAT FOOT DSG DRY AND INTACT ELEVATED WITH PILLOWS .PT ON SCHEDULE FOR PICC-LINE PLACEMENT TODAY CONSENT WAS DONE .PT WAS ABLE TO SIGH CONSENT AND WITNESSED BY JOSS ANTONIO. BED SIDE REPORT RECEIVED BY JOSS ANTONIOCOFFEE PLANTATION WORKER OF NOC SHIFT.WILL CONT TO MONITOR.
[2019-08-14 08:00] VITALS: BP 139/78
--- NOTE | 2019-08-14 08:29 | NUR ---
HAND-OFF: Report given to PACO Justin. Patient in bed asleep with no S/S of distress. Endorsed plan of care
[2019-08-14] MEDS ORDERED: Lexiscan 0.4mg/5ml syringe IV PRN (08:45)
--- NOTE | 2019-08-14 08:45 | NUR ---
PT NOTE Per Min RN, Dr. Augustine requesting to hold PT intervention until after stress test is completed and he has reviewed the results to determine clearance to resume PT. Per Dr. Haas patient is to be NWB BLE. Will follow.
[2019-08-14] MEDS: Levemir Flexpen SUBQ SCH ×2 (09:32→20:50)
[2019-08-14] MEDS: Heparin 5000 units/ml inj SUBQ SCH ×2 (09:36→20:50)
[2019-08-14] MEDS: Docusate 100mg cap ORAL SCH ×2 (09:38→18:08)
[2019-08-14] MEDS: Multivitamin w/Minerals tab ORAL SCH ×2 (09:38→18:08)
[2019-08-14] MEDS: Aspirin EC 81mg tab ORAL SCH (09:38)
--- NOTE | 2019-08-14 09:38 | General Progress Note ---
Assessment/Plan Status: stable, unchanged Assessment/Plan: S: I need my eye drop O: Is consulted against walking on the affected foot for now . Pain is well controlled . PHYSICAL EXAMINATION: . HEAD AND NECK: multiple molars with plaques, Atraumatic and normocephalic. CHEST: Clear to auscultation. No wheezing. No crackles.HEART: S1 and S2. Regular rate and rhythm. No S3. No S4. ABDOMEN: Soft. No organomegaly.MUSCULOSKELETAL: Positive for bilater Charcot' s foot. Positive for stump of the prior tarsometatarsal resections. open wound in plantar aspect of left foot NEUROLOGIC: The patient is awake, alert, and oriented x3.PSYCHIATRIC: Mood and affect is normal LABORATORY DATA: Dated 08/13/2019 reviewed Echo from 08/12/19 reviewed , MRI from 08/13/19 reviewed A/P: 1- Sever Gram negative Sepsis 2. Acute cellulitis with or with out Acute OM of left foot. 2- DM- uncontrolled 3. Non compliance with medications 3- Charcot Foot- Left sided 4- HTN 5- Psych 6. Acute on Chronic KD Plan: MRI of the foot reviewed Cardiology notes are reviewed current empiricall abx Subjective Allergies: Coded Allergies: METFORMIN (Verified Allergy, Unknown, 10/09/18) Vomiting Objective Last 24 Hour Vital Signs Date Time Temp Pulse Resp B/P (MAP) Pulse Ox O2 Delivery O2 Flow Rate FiO2 08/14/19 08:00 98.3 87 20 139/78 (98) 95 08/14/19 04:00 97.9 83 18 151/77 (101) 94 08/14/19 04:00 80 08/14/19 00:00 79 08/14/19 00:00 97.8 80 18 119/74 (89) 95 08/13/19 21:00 Room Air 08/13/19 20:00 98 08/13/19 20:00 100.3 96 18 111/68 (82) 96 08/13/19 18:12 100.9 08/13/19 16:00 101.8 95 21 132/74 (93) 93 08/13/19 16:00 93 08/13/19 14:06 97.0 91 20 131/76 (94) 94 Intake and Output 08/13/19 08/14/19 18:59 06:59 Intake Total 1510 ml 1162 ml Output Total 600 ml Balance 1510 ml 562 ml Intake Oral 400 ml IV Total 1110 ml 1162 ml Output Urine Total 600 ml # Voids 2 Laboratory Tests 08/13/19 14:35: White Blood Count 8.2, Red Blood Count 3.16L, Hemoglobin 8.9L, Hematocrit 26.6L , Mean Corpuscular Volume 84, Mean Corpuscular Hemoglobin 28.2, Mean Corpuscular Hemoglobin Concent 33.5, Red Cell Distribution Width 13.3, Platelet Count 164, Mean Platelet Volume 6.6, Neutrophils (%) (Auto) , Lymphocytes (%) ( Auto) , Monocytes (%) (Auto) , Eosinophils (%) (Auto) , Basophils (%) (Auto) , Differential Total Cells Counted 100, Neutrophils % (Manual) 80H, Lymphocytes % (Manual) 9L, Monocytes % (Manual) 8, Eosinophils % (Manual) 1, Basophils % ( Manual) 1, Band Neutrophils 1, Platelet Estimate Adequate, Platelet Morphology Normal, Hypochromasia 1+, Anisocytosis 1+, Sodium Level 130L, Potassium Level 4.5, Chloride Level 97L, Carbon Dioxide Level 19L, Anion Gap 14, Blood Urea Nitrogen 58H, Creatinine 5.1H, Estimat Glomerular Filtration Rate 12.1, Glucose Level 169H, Calcium Level 8.1L, Total Bilirubin 0.6, Aspartate Amino Transf (AST /SGOT) 118H, Alanine Aminotransferase (ALT/SGPT) 103H, Alkaline Phosphatase 173H , Total Creatine Kinase 122, Total Protein 6.8, Albumin 1.9L, Globulin 4.9, Albumin/Globulin Ratio 0.4L Height (Feet): 6 Height (Inches): 1.00 Weight (Pounds): 233 Dexter Haas MD Aug 14, 2019 09:38
--- NOTE | 2019-08-14 10:05 | NUR ---
CARDIOLOGY Pt refused the cardiac stress test.
[2019-08-14] MEDS: Cosopt Opth Soln 10 mL Btl RIGHT EYE SCH ×2 (10:32→18:09)
--- NOTE | 2019-08-14 10:32 | Nephrology Progress Note ---
Assessment/Plan Problem List: (1) Renal failure (ARF), acute on chronic (2) Diabetic nephropathy (3) Cellulitis of lower extremity Assessment Acute on chronic renal failure- Diabetic Nephropathy DM OOC Anemia Electrolyte imbalance HTN Plan today's labs pending yesterday Cr higher may need dialysis if Cr rise further stat renal panel ordered discussed with patient and priscilla ( PILLO) Consent for cath insertion previously Refuses ch- bladder scan: Zero Hydrate Keep BP and BS in check avoid nephrotoxics monitor renal parameters 2D echo Left ventricular ejection fraction is estimated to be 55%. COOPER kidney unremarkable Urine studies NS and or Albumin bolus Subjective ROS Limited/Unobtainable: No Constitutional: Reports: malaise Objective Objective Last 24 Hour Vital Signs Date Time Temp Pulse Resp B/P (MAP) Pulse Ox O2 Delivery O2 Flow Rate FiO2 08/14/19 08:00 98.3 87 20 139/78 (98) 95 08/14/19 04:00 97.9 83 18 151/77 (101) 94 08/14/19 04:00 80 08/14/19 00:00 79 08/14/19 00:00 97.8 80 18 119/74 (89) 95 08/13/19 21:00 Room Air 08/13/19 20:00 98 08/13/19 20:00 100.3 96 18 111/68 (82) 96 08/13/19 18:12 100.9 08/13/19 16:00 101.8 95 21 132/74 (93) 93 08/13/19 16:00 93 08/13/19 14:06 97.0 91 20 131/76 (94) 94 Intake and Output 08/13/19 08/14/19 18:59 06:59 Intake Total 1510 ml 1162 ml Output Total 600 ml Balance 1510 ml 562 ml Intake Oral 400 ml IV Total 1110 ml 1162 ml Output Urine Total 600 ml # Voids 2 Laboratory Tests 08/13/19 14:35: White Blood Count 8.2, Red Blood Count 3.16L, Hemoglobin 8.9L, Hematocrit 26.6L , Mean Corpuscular Volume 84, Mean Corpuscular Hemoglobin 28.2, Mean Corpuscular Hemoglobin Concent 33.5, Red Cell Distribution Width 13.3, Platelet Count 164, Mean Platelet Volume 6.6, Neutrophils (%) (Auto) , Lymphocytes (%) ( Auto) , Monocytes (%) (Auto) , Eosinophils (%) (Auto) , Basophils (%) (Auto) , Differential Total Cells Counted 100, Neutrophils % (Manual) 80H, Lymphocytes % (Manual) 9L, Monocytes % (Manual) 8, Eosinophils % (Manual) 1, Basophils % ( Manual) 1, Band Neutrophils 1, Platelet Estimate Adequate, Platelet Morphology Normal, Hypochromasia 1+, Anisocytosis 1+, Sodium Level 130L, Potassium Level 4.5, Chloride Level 97L, Carbon Dioxide Level 19L, Anion Gap 14, Blood Urea Nitrogen 58H, Creatinine 5.1H, Estimat Glomerular Filtration Rate 12.1, Glucose Level 169H, Calcium Level 8.1L, Total Bilirubin 0.6, Aspartate Amino Transf (AST /SGOT) 118H, Alanine Aminotransferase (ALT/SGPT) 103H, Alkaline Phosphatase 173H , Total Creatine Kinase 122, Total Protein 6.8, Albumin 1.9L, Globulin 4.9, Albumin/Globulin Ratio 0.4L Height (Feet): 6 Height (Inches): 1.00 Weight (Pounds): 233 Objective no change Ernesto Frost MD Aug 14, 2019 10:32
[2019-08-14 11:14] LABS: ANION GAP 12 mmol/L (5-15); BLOOD UREA NITROGEN 57 mg/dL (7-18); CALCIUM 8.2 MG/DL (8.5-10.1); CARBON DIOXIDE 19 MMOL/L (21-32); CHLORIDE 100 MMOL/L (98-107); CREATININE 4.8 MG/DL (0.55-1.30); POTASSIUM 4.5 MMOL/L (3.5-5.1); SODIUM 131 MMOL/L (136-145)
[2019-08-14 11:20] LABS: ALANINE AMINOTRANSFERASE 81 U/L (12-78); ALBUMIN 1.9 G/DL (3.4-5.0); ALBUMIN/GLOBULIN RATIO 0.4 (1.0-2.7); ALKALINE PHOSPHATASE 165 U/L (46-116); ASPARTATE AMINO TRANSFERASE 93 U/L (15-37); BILIRUBIN,TOTAL 0.5 MG/DL (0.2-1.0); PHOSPHORUS 4.3 MG/DL (2.5-4.9)
--- NOTE | 2019-08-14 11:24 | NUR ---
CASE MANAGEMENT: REVIEW 08/14/19 SI: SEPSIS, ACUTE RF 98.3 87 20 139/78 95%RA NA+131; BUN 57; CRE 4.8; URIC ACID 7.9; CA 8.2; RBC 3.16; H/H 8.9/25.6 08/11/19 TROP+=0.225 IS: HEPARIN SQ Q12 IV DAPTOMYCIN Q24 IV MEROPENEM Q12 HYDRALAZINE PO Q4/PRN NOVOLOG QD TIAC LEVEMIR SQ BID LIPITOR PO HS NEURONTIN PO BID IVF NS @100/HR FLOMAX PO HS ASPIRIN PO QD COSOPT OD BID : TX TO 2E TELE UNIT PLAN: MRI + FOR OSTEOMYELITIS PICC LINE HOLD PT FOR JAVON DC TO FACILITY TO CONT ABT'S THERAPY STAT LABS FOR HD CATH BL CX
[2019-08-14] MEDS: Meropenem 1 GM in NS 55 ML IVPB SCH ×2 (11:32→23:13)
[2019-08-14 12:00] VITALS: BP 130/76
--- NOTE | 2019-08-14 13:01 | Diagnostic Imaging Report ---
APPROVED REPORT CPT Code: 85172 Present Symptoms Comments: Pain BILATERAL: Imaging reveals a patent deep venous system bilaterally. There is no evidence of thrombus within the femoral, popliteal or tibial segments. The greater saphenous veins are also within normal limits. Doppler indicates normal spontaneous flow within these segments.
--- NOTE | 2019-08-14 13:11 | Podiatric Progress Note ---
Assessment/Plan Patient Walker Chahal is a 48 year old male who was admitted on Aug 10, 2019 at 04:11 with Assessment/Plan Assessment/Plan A: B/L Foot charcot deformity Left plantar RF ulcer, with purulent drainage Right foot plantar lateral ulceration, possible deep abscess DM Sepsis Acute Renal Failure P: Pt seen and evaluated Discuss findings with patient WBC, 8.2 down trending Temp, 96.7, currently afebrile. MRI to B/L L/E is negative for any destructive OM or discrete abscess. Cont IV ABx Cont tx per specialists Pt transferred to [facility] 12/14 elevated troponin At this time, no acute surgical intervention is required, will continue with local wound care and IV ABx. Podiatry will cont to monitor. Subjective ROS Limited/Unobtainable: No Reason for consult Pt seen bedside for B/L L/E charcot foot deformity, celllulits and ulceration. He states pain is minimal to B/L L/E. Appears NAD at bedside. Pt is eating lunch at bedside, confirms dressings are C/D/I. Allergies: Coded Allergies: METFORMIN (Verified Allergy, Unknown, 10/09/18) Vomiting Objective Exam Last 24 Hour Vital Signs Date Time Temp Pulse Resp B/P (MAP) Pulse Ox O2 Delivery O2 Flow Rate FiO2 08/14/19 08:00 98.3 87 20 139/78 (98) 95 08/14/19 04:00 97.9 83 18 151/77 (101) 94 08/14/19 04:00 80 08/14/19 00:00 79 08/14/19 00:00 97.8 80 18 119/74 (89) 95 08/13/19 21:00 Room Air 08/13/19 20:00 98 08/13/19 20:00 100.3 96 18 111/68 (82) 96 08/13/19 18:12 100.9 08/13/19 16:00 101.8 95 21 132/74 (93) 93 08/13/19 16:00 93 08/13/19 14:06 97.0 91 20 131/76 (94) 94 Laboratory Tests Test 08/13/19 14:35 08/14/19 10:45 White Blood Count 8.2 K/UL (4.8-10.8) Red Blood Count 3.16 M/UL (4.70-6.10) L Hemoglobin 8.9 G/DL (14.2-18.0) L Hematocrit 26.6 % (42.0-52.0) L Mean Corpuscular Volume 84 FL (80-99) Mean Corpuscular Hemoglobin 28.2 PG (27.0-31.0) Mean Corpuscular Hemoglobin Concent 33.5 G/DL (32.0-36.0) Red Cell Distribution Width 13.3 % (11.6-14.8) Platelet Count 164 K/UL (150-450) Mean Platelet Volume 6.6 FL (6.5-10.1) Neutrophils (%) (Auto) % (45.0-75.0) Lymphocytes (%) (Auto) % (20.0-45.0) Monocytes (%) (Auto) % (1.0-10.0) Eosinophils (%) (Auto) % (0.0-3.0) Basophils (%) (Auto) % (0.0-2.0) Differential Total Cells Counted 100 Neutrophils % (Manual) 80 % (45-75) H Lymphocytes % (Manual) 9 % (20-45) L Monocytes % (Manual) 8 % (1-10) Eosinophils % (Manual) 1 % (0-3) Basophils % (Manual) 1 % (0-2) Band Neutrophils 1 % (0-8) Platelet Estimate Adequate Platelet Morphology Normal Hypochromasia 1+ Anisocytosis 1+ Sodium Level 130 MMOL/L (136-145) L 131 MMOL/L (136-145) L Potassium Level 4.5 MMOL/L (3.5-5.1) 4.5 MMOL/L (3.5-5.1) Chloride Level 97 MMOL/L (98-107) L 100 MMOL/L (98-107) Carbon Dioxide Level 19 MMOL/L (21-32) L 19 MMOL/L (21-32) L Anion Gap 14 mmol/L (5-15) 12 mmol/L (5-15) Blood Urea Nitrogen 58 mg/dL (7-18) H 57 mg/dL (7-18) H Creatinine 5.1 MG/DL (0.55-1.30) H 4.8 MG/DL (0.55-1.30) H Estimat Glomerular Filtration Rate 12.1 mL/min (>60) 12.9 mL/min (>60) Glucose Level 169 MG/DL (74-106) H 198 MG/DL (74-106) H Calcium Level 8.1 MG/DL (8.5-10.1) L 8.2 MG/DL (8.5-10.1) L Total Bilirubin 0.6 MG/DL (0.2-1.0) 0.5 MG/DL (0.2-1.0) Aspartate Amino Transf (AST/SGOT) 118 U/L (15-37) H 93 U/L (15-37) H Alanine Aminotransferase (ALT/SGPT) 103 U/L (12-78) H 81 U/L (12-78) H Alkaline Phosphatase 173 U/L (46-116) H 165 U/L (46-116) H Total Creatine Kinase 122 U/L (26-308) Total Protein 6.8 G/DL (6.4-8.2) 6.9 G/DL (6.4-8.2) Albumin 1.9 G/DL (3.4-5.0) L 1.9 G/DL (3.4-5.0) L Globulin 4.9 g/dL 5.0 g/dL Albumin/Globulin Ratio 0.4 (1.0-2.7) L 0.4 (1.0-2.7) L Prothrombin Time 10.5 SEC (9.30-11.50) Prothromb Time International Ratio 1.0 (0.9-1.1) Activated Partial Thromboplast Time 32 SEC (23-33) Uric Acid 7.9 MG/DL (2.6-7.2) H Phosphorus Level 4.3 MG/DL (2.5-4.9) Hepatitis B Surface Antigen Pending Hepatitis B Surface Antibody, Quant Pending Hepatitis C Antibody Pending Microbiology Date/Time Source Procedure Growth Status 08/10/19 04:05 Blood Blood Culture - Preliminary NO GROWTH AFTER 72 HOURS Resulted 08/11/19 06:10 Wound Gram Stain - Final Complete 08/11/19 06:10 Wound Culture - Final Citrobacter Diversus Klebsiella Pneumoniae Esbl Complete 08/10/19 04:30 Nasal Nares MRSA Culture - Final Staphylococcus Aureus - Mrsa Complete 08/13/19 00:18 Urine,Clean Catch Urine Culture - Preliminary NO GROWTH AFTER 24 HOURS Resulted 08/10/19 04:30 Rectum - Final NO CARBAPENEM-RESISTANT ENTEROBACTERI... 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 NEUROLOGICAL: SILT decreased to all dermatomes. MUSCULOSKELETAL: Left foot noted to have Charcot deformity with midfoot collapse. Right foot also noted to have charcot deformity, ROM and MS noted to be decreased. DERMATOLOGICAL EXAMINATION: Left foot ulceration is noted plantar central calcaneus, wound base noted to muscle layer, (+) purulent drainage is noted. Positive myriam-wound erythema. Right foot ulceration is noted plantar lateral midfoot, wound base is noted to subQ layer, (-) purulent drainage is noted. Positive myriam-wound erythema. Negative drainage, discharge, or purulent matter. Increase temp differential noted R > L. Ascending erythema is noted. Steven Cole DPM Aug 14, 2019 13:11
--- NOTE | 2019-08-14 14:13 | NUR ---
RADIOLOGY NOTE: LEFT UPPER PICC PLACED.
--- NOTE | 2019-08-14 14:30 | NUR ---
NURSE NOTES: PT HAD PICC-LINE PLACEMENT DONE BY DR LOVING AT RADIOLOGY DPT. A WAITING FOR CONFIRMATION OF PICC-LINE . WILL CONT TO MONITOR.
--- NOTE | 2019-08-14 14:42 | Diagnostic Imaging Report ---
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 The left upper extremity was prepped with alcohol. All elements of maximal sterile barrier technique were followed including usage of a cap, mask, sterile gown, sterile gloves, hand hygiene and a large sterile sheet. Sonographic evaluation of the upper extremity was performed demonstrating a patent and compressible brachial vein. Access was obtained under real-time ultrasound guidance (with utilization of sterile gel and sterile probe cover) and digital image was saved and archived. An .018 wire was introduced. Needle exchanged for a 5 [place] peel-away sheath. Measurements were obtained. A 5 [place] dual-lumen Power PICC line catheter was cut to 52 cm and introduced over the wire. Peel-away sheath and wire were removed.Catheter was secured to the skin using 2-0 Prolene suture. Both ports aspirate and flush easily. A single fluoroscopic image shows the distal tip in the superior vena cava. Total fluoroscopic time 50 seconds Impression: Successful placement of an upper extremity PICC line catheter
--- NOTE | 2019-08-14 15:46 | Infectious Diseases Prog Note ---
Assessment/Plan Problems: (1) Acute on chronic osteomyelitis Assessment & Plan: with bony destruction on MRI and charcot joint related bony changes , can't rule out osteomyelitis . will treat him with daptomycin and meropenem for 6 weeks to cover osteomyelitis of the feet . monitor ck weekly (2) Renal failure (ARF), acute on chronic Assessment & Plan: may need HD , since not much UOP , avoid nephrotoxics , continue hydration, close monitoring of renal function, renal is following (3) Poorly controlled diabetes mellitus Assessment & Plan: recommend tight glycemic control to keep blood glucose between 100-140 (4) Diabetic foot infection Assessment & Plan: with ESBL producing Klebsiella Pneumonia and citrobacter diversus , already on wide spectrum antibiotics , keep leg elevated while in bed, with tight glycemic control (5) Sepsis Assessment & Plan: with Citrobacter diversus , suspect source is his left foot chronic wound with infection , continue meropenem for now to cover for ESBL producing Klebsiella pneumoniae . may need surgical debridement of the left foot for source control and possible wound VAC . Subjective Constitutional: Reports: fatigue HEENT: Reports: no symptoms Respiratory: Reports: no symptoms Breasts: Reports: no symptoms Cardiovascular: Reports: no symptoms Gastrointestinal/Abdominal: Reports: no symptoms Genitourinary: Reports: no symptoms Neurologic: Reports: no symptoms Psychiatric: Reports: no symptoms Skin: Reports: ulcer Endocrine: Reports: no symptoms Hematologic: Reports: no symptoms Musculoskeletal: Reports: no symptoms Allergies: Coded Allergies: METFORMIN (Verified Allergy, Unknown, 10/09/18) Vomiting Objective Vital Signs Last 24 Hour Vital Signs Date Time Temp Pulse Resp B/P (MAP) Pulse Ox O2 Delivery O2 Flow Rate FiO2 08/14/19 12:00 98.8 86 20 130/76 (94) 96 08/14/19 12:00 88 08/14/19 09:00 Room Air 08/14/19 08:00 98.3 87 20 139/78 (98) 95 08/14/19 08:00 94 08/14/19 04:00 97.9 83 18 151/77 (101) 94 08/14/19 04:00 80 08/14/19 00:00 79 08/14/19 00:00 97.8 80 18 119/74 (89) 95 08/13/19 21:00 Room Air 08/13/19 20:00 98 08/13/19 20:00 100.3 96 18 111/68 (82) 96 08/13/19 18:12 100.9 08/13/19 16:00 101.8 95 21 132/74 (93) 93 08/13/19 16:00 93 Height (Feet): 6 Height (Inches): 1.00 Weight (Pounds): 233 General Appearance: WD/WN, no acute distress HEENT: normocephalic, atraumatic, anicteric, mucous membranes moist, PERRL, EOMI, pharynx normal, supple, no JVD Respiratory/Chest: chest wall non-tender, lungs clear, normal breath sounds, no respiratory distress, no accessory muscle use, decreased breath sounds Cardiovascular: normal peripheral pulses, normal rate, regular rhythm, no gallop/murmur, no JVD Abdomen: normal bowel sounds, soft, non tender, no organomegaly, non distended , no mass, no scars Extremities: no cyanosis, no clubbing Skin: no rash, no lesions, ulcers Neurologic/Psychiatric: alert, oriented x 3, responsive Lymphatic: no neck adenopathy, no groin adenopathy Musculoskeletal: normal muscle bulk, no effusion Microbiology Date/Time Source Procedure Growth Status 08/13/19 00:18 Urine,Clean Catch Urine Culture - Preliminary NO GROWTH AFTER 24 HOURS Resulted Laboratory Tests Test 08/14/19 10:45 Prothrombin Time 10.5 SEC (9.30-11.50) Prothromb Time International Ratio 1.0 (0.9-1.1) Activated Partial Thromboplast Time 32 SEC (23-33) Sodium Level 131 MMOL/L (136-145) L Potassium Level 4.5 MMOL/L (3.5-5.1) Chloride Level 100 MMOL/L (98-107) Carbon Dioxide Level 19 MMOL/L (21-32) L Anion Gap 12 mmol/L (5-15) Blood Urea Nitrogen 57 mg/dL (7-18) H Creatinine 4.8 MG/DL (0.55-1.30) H Estimat Glomerular Filtration Rate 12.9 mL/min (>60) Glucose Level 198 MG/DL (74-106) H Uric Acid 7.9 MG/DL (2.6-7.2) H Calcium Level 8.2 MG/DL (8.5-10.1) L Phosphorus Level 4.3 MG/DL (2.5-4.9) Total Bilirubin 0.5 MG/DL (0.2-1.0) Aspartate Amino Transf (AST/SGOT) 93 U/L (15-37) H Alanine Aminotransferase (ALT/SGPT) 81 U/L (12-78) H Alkaline Phosphatase 165 U/L (46-116) H Total Protein 6.9 G/DL (6.4-8.2) Albumin 1.9 G/DL (3.4-5.0) L Globulin 5.0 g/dL Albumin/Globulin Ratio 0.4 (1.0-2.7) L Hepatitis B Surface Antigen Pending Hepatitis B Surface Antibody, Quant Pending Hepatitis C Antibody Pending Current Medications Medications (Trade) Dose Ordered Sig/Aylin Route PRN Reason Start Time Stop Time Status Last Admin Dose Admin Acetaminophen (Tylenol) 650 mg Q4H PRN ORAL Mild Pain/Temp > 100.5 08/12/19 00:15 09/09/19 08:14 08/13/19 17:42 Aspirin (Ecotrin) 81 mg DAILY ORAL 08/12/19 19:30 09/11/19 19:29 08/14/19 09:38 Atorvastatin Calcium (Lipitor) 40 mg BEDTIME ORAL 08/12/19 21:00 09/09/19 20:59 08/13/19 21:33 Bisacodyl (Dulcolax) 10 mg DAILY PRN RECTAL Constipation 08/11/19 23:00 09/10/19 22:59 Chlorhexidine Gluconate (Ariadna-Hex 2%) 1 applic DAILY@2000 TOPIC 08/13/19 20:00 09/12/19 19:59 Daptomycin 970 mg/ Sodium Chloride 55 ml @ 100 mls/hr Q48H IV 08/15/19 21:00 08/22/19 20:59 Dextrose (Dextrose 50%) 25 ml Q30M PRN IV Hypoglycemia 08/11/19 23:15 09/09/19 07:14 Dextrose (Dextrose 50%) 50 ml Q30M PRN IV Hypoglycemia 08/11/19 23:15 09/09/19 07:14 Docusate Sodium (Colace) 100 mg TWICE A DAY ORAL 08/12/19 18:45 09/11/19 18:44 08/14/19 09:38 Dorzolamide/ Timolol (Cosopt) 1 drop TWICE A DAY RIGHT EYE 08/14/19 09:00 09/13/19 08:59 08/14/19 10:32 Escitalopram Oxalate (Lexapro) 10 mg DAILY ORAL 08/12/19 09:00 09/09/19 08:59 08/14/19 09:37 Famotidine (Pepcid) 20 mg DAILY@0630 ORAL 08/12/19 06:30 09/10/19 06:29 08/14/19 06:19 Fish Oil (Fish Oil) 1,000 mg BID ORAL 08/12/19 18:45 09/11/19 18:44 08/14/19 09:38 Gabapentin (Neurontin) 300 mg BID ORAL 08/12/19 18:46 09/11/19 18:45 08/14/19 09:38 Gabapentin (Neurontin) 600 mg BEDTIME ORAL 08/12/19 21:00 09/09/19 20:59 08/13/19 21:35 Heparin Sodium (Porcine) (Heparin 5000 units/ml) 5,000 units EVERY 12 HOURS SUBQ 08/12/19 09:00 09/09/19 08:59 08/14/19 09:36 Heparin Sodium/ Sodium Chloride (Heparin 1000 units/500ml Premix) 1,000 unit ONCE PRN IV PICC PLACEMENT 08/14/19 06:30 08/16/19 23:59 Hydralazine HCl (Apresoline) 25 mg Q4H PRN ORAL bp over 160 syst 08/11/19 23:45 09/09/19 11:44 Insulin Aspart (NovoLOG) BEFORE MEALS AND HS SUBQ 08/12/19 06:30 09/09/19 11:29 08/14/19 13:08 Insulin Aspart (NovoLOG) 15 units NOVOTIAC SUBQ 08/12/19 11:50 09/09/19 11:49 08/14/19 13:09 Insulin Detemir (Levemir) 35 units Q12HR SUBQ 08/13/19 21:00 09/12/19 20:59 08/14/19 09:32 Latanoprost (Xalatan) 1 drop BEDTIME RIGHT EYE 08/13/19 21:00 09/12/19 20:59 08/13/19 21:42 Meropenem 1 gm/ Sodium Chloride 55 ml @ 110 mls/hr Q12HR@1100,2300 IVPB 08/13/19 01:00 08/18/19 00:59 08/14/19 11:32 Multivitamins Therapeutic (Therapeutic Multivitamin) 1 ea BID ORAL 08/12/19 18:46 09/11/19 18:45 08/14/19 09:38 Quetiapine Fumarate (SEROquel) 50 mg Q12HR ORAL 08/12/19 09:00 09/11/19 08:59 08/14/19 09:37 Regadenoson (Lexiscan) 0.4 mg ONCE PRN IV STRESS TEST 08/14/19 08:45 08/15/19 23:59 Sodium Chloride 1,000 ml @ 100 mls/hr Q10H IV 08/12/19 12:15 09/11/19 12:14 08/14/19 14:33 Tamsulosin HCl (Flomax) 0.4 mg BEDTIME ORAL 08/12/19 21:00 09/09/19 20:59 08/13/19 21:33 Kwasi Martinez M.D. Aug 14, 2019 15:46
[2019-08-14 16:00] VITALS: BP 130/78
--- NOTE | 2019-08-14 16:30 | NUR ---
NURSE NOTES: Received patient from [facility]. patient resting comfortably in bed. No c/o pain or discomfort. VSS. L arm PICC DL intact. no s/s of bleeding or swelling noted. safety precautions in place. bed locked to lowest position, side rails X2 up for safety. call bird within patient reached. will follow.
--- NOTE | 2019-08-14 17:10 | NUR ---
HAND-OFF: Report given to .RJ ANTONIO.
--- NOTE | 2019-08-14 18:00 | Cardiology Progress Note ---
Assessment/Plan Assessment/Plan 1. Elevated troponin I level in this patient. Multiple etiologies could be troponin leakage due to renal failure versus type 2 non-ST elevation myocardial infarction or demand ischemia in the setting of coronary artery disease or due to underlying infection. MPI stress test is postponed till tomorrow. Echo with normal LV systolic and diastolic function and LVEF ~55%, continue aspirin and atorvastatin. 2. Hypertension. 3. Uncontrolled diabetes mellitus. 4. CAMILLE on CKD, creat continues to rise, nephrology follow up. Subjective Subjective Sinus rhythm at rate of 79. He refused the stress test scheduled for today. Objective Last 24 Hour Vital Signs Date Time Temp Pulse Resp B/P (MAP) Pulse Ox O2 Delivery O2 Flow Rate FiO2 08/14/19 16:00 98.5 79 23 130/78 (95) 97 08/14/19 16:00 88 08/14/19 12:00 98.8 86 20 130/76 (94) 96 08/14/19 12:00 88 08/14/19 09:00 Room Air 08/14/19 08:00 98.3 87 20 139/78 (98) 95 08/14/19 08:00 94 08/14/19 04:00 97.9 83 18 151/77 (101) 94 08/14/19 04:00 80 08/14/19 00:00 79 08/14/19 00:00 97.8 80 18 119/74 (89) 95 08/13/19 21:00 Room Air 08/13/19 20:00 98 08/13/19 20:00 100.3 96 18 111/68 (82) 96 08/13/19 18:12 100.9 Intake and Output 08/13/19 08/14/19 19:00 07:00 Intake Total 1527 ml 1190 ml Output Total 600 ml Balance 1527 ml 590 ml Intake Oral 400 ml IV Total 1127 ml 1190 ml Output Urine Total 600 ml # Voids 2 2D Echo: LVEF 60%, RVSP 10 mmHg, Normal LV diastolic fxn Laboratory Tests Test 08/14/19 10:45 Prothrombin Time 10.5 SEC (9.30-11.50) Prothromb Time International Ratio 1.0 (0.9-1.1) Activated Partial Thromboplast Time 32 SEC (23-33) Sodium Level 131 MMOL/L (136-145) L Potassium Level 4.5 MMOL/L (3.5-5.1) Chloride Level 100 MMOL/L (98-107) Carbon Dioxide Level 19 MMOL/L (21-32) L Anion Gap 12 mmol/L (5-15) Blood Urea Nitrogen 57 mg/dL (7-18) H Creatinine 4.8 MG/DL (0.55-1.30) H Estimat Glomerular Filtration Rate 12.9 mL/min (>60) Glucose Level 198 MG/DL (74-106) H Uric Acid 7.9 MG/DL (2.6-7.2) H Calcium Level 8.2 MG/DL (8.5-10.1) L Phosphorus Level 4.3 MG/DL (2.5-4.9) Total Bilirubin 0.5 MG/DL (0.2-1.0) Aspartate Amino Transf (AST/SGOT) 93 U/L (15-37) H Alanine Aminotransferase (ALT/SGPT) 81 U/L (12-78) H Alkaline Phosphatase 165 U/L (46-116) H Total Protein 6.9 G/DL (6.4-8.2) Albumin 1.9 G/DL (3.4-5.0) L Globulin 5.0 g/dL Albumin/Globulin Ratio 0.4 (1.0-2.7) L Hepatitis B Surface Antigen Pending Hepatitis B Surface Antibody, Quant Pending Hepatitis C Antibody Pending Microbiology Date/Time Source Procedure Growth Status 08/13/19 00:18 Urine,Clean Catch Urine Culture - Preliminary NO GROWTH AFTER 24 HOURS Resulted Objective HEENT: Atraumatic, normocephalic. Pupils are equal, round, and reactive to light and accommodation. Extraocular muscles intact. NECK: JVP less than 5 cm. No carotid bruits. Carotid upstrokes 2+. CARDIOVASCULAR: Normal S1, S2. Regular rate and rhythm. No murmurs, gallops, or rubs. PMI is at fourth intercostal space at the midclavicular line. LUNGS: Clear to auscultation bilaterally. ABDOMEN: Soft, nontender, and nondistended. No hepatosplenomegaly. Positive bowel sounds. EXTREMITIES: Presence of deformed small joints of both feet with bilateral ulceration of the foot with drainage. Corey Augustine MD Aug 14, 2019 18:00
--- NOTE | 2019-08-14 18:00 | NUR ---
NURSE NOTES: call placed to Dr. Cardenas per MD to call him regarding STAT lab results and as per previous Rn of patient's refusal to sign HD catheter consent. awaiting MD's call back. will follow.
--- NOTE | 2019-08-14 18:30 | NUR ---
NURSE NOTES: Call placed to Radiology spoke to "Gomez" i asked re; PICC line placement. He said its in the correct placement. Also as per documented radiology report. PICC line insertion successful. Call out to Dr. Haas order received ok to use PICC line.
--- NOTE | 2019-08-14 19:10 | Surgery Progress Note ---
Surgery Progress Note Subjective Additional Comments labs stable podiatry input noted exam stable. Objective Last 24 Hour Vital Signs Date Time Temp Pulse Resp B/P (MAP) Pulse Ox O2 Delivery O2 Flow Rate FiO2 08/14/19 16:00 98.5 79 23 130/78 (95) 97 08/14/19 16:00 88 08/14/19 12:00 98.8 86 20 130/76 (94) 96 08/14/19 12:00 88 08/14/19 09:00 Room Air 08/14/19 08:00 98.3 87 20 139/78 (98) 95 08/14/19 08:00 94 08/14/19 04:00 97.9 83 18 151/77 (101) 94 08/14/19 04:00 80 08/14/19 00:00 79 08/14/19 00:00 97.8 80 18 119/74 (89) 95 08/13/19 21:00 Room Air 08/13/19 20:00 98 08/13/19 20:00 100.3 96 18 111/68 (82) 96 I&O Intake and Output 08/13/19 08/14/19 19:00 07:00 Intake Total 1527 ml 1190 ml Output Total 600 ml Balance 1527 ml 590 ml Intake Oral 400 ml IV Total 1127 ml 1190 ml Output Urine Total 600 ml # Voids 2 Dressing: dry Wound: clean Cardiovascular: RSR Respiratory: clear Abdomen: soft, flat, present bowel sounds Extremities: edema, no cyanosis, other Laboratory Tests Test 08/14/19 10:45 Prothrombin Time 10.5 SEC (9.30-11.50) Prothromb Time International Ratio 1.0 (0.9-1.1) Activated Partial Thromboplast Time 32 SEC (23-33) Sodium Level 131 MMOL/L (136-145) L Potassium Level 4.5 MMOL/L (3.5-5.1) Chloride Level 100 MMOL/L (98-107) Carbon Dioxide Level 19 MMOL/L (21-32) L Anion Gap 12 mmol/L (5-15) Blood Urea Nitrogen 57 mg/dL (7-18) H Creatinine 4.8 MG/DL (0.55-1.30) H Estimat Glomerular Filtration Rate 12.9 mL/min (>60) Glucose Level 198 MG/DL (74-106) H Uric Acid 7.9 MG/DL (2.6-7.2) H Calcium Level 8.2 MG/DL (8.5-10.1) L Phosphorus Level 4.3 MG/DL (2.5-4.9) Total Bilirubin 0.5 MG/DL (0.2-1.0) Aspartate Amino Transf (AST/SGOT) 93 U/L (15-37) H Alanine Aminotransferase (ALT/SGPT) 81 U/L (12-78) H Alkaline Phosphatase 165 U/L (46-116) H Total Protein 6.9 G/DL (6.4-8.2) Albumin 1.9 G/DL (3.4-5.0) L Globulin 5.0 g/dL Albumin/Globulin Ratio 0.4 (1.0-2.7) L Hepatitis B Surface Antigen Pending Hepatitis B Surface Antibody, Quant Pending Hepatitis C Antibody Pending Plan Problems: (1) Osteomyelitis of ankle or foot, left, acute Assessment & Plan: Left Foot plain films FINDINGS: Bones joints: No acute fracture. No dislocation. Surgical absence of the fifth phalanges and distal half of the fifth metatarsal bone. Marked deformity in the mid foot and base of the first metatarsal bone likely posttraumatic post surgical change. Soft tissues: Soft tissue swelling about the plantar aspect of the foot. No radiopaque foreign body. IMPRESSION: 1. Marked deformity in the mid foot likely postsurgical posttraumatic change. 2. No gross acute bony abnormality. 3. Status post resection of the fifth phalanges as described Extensive destruction of the midfoot likely on the basis of neuropathic disease (Charcot foot). Suggest correlation with plain x-ray. The presence of superimposed osteomyelitis involving the area of the midfoot, anterior hindfoot and posterior forefoot is not excludable. Advanced Charcot foot with superimposed degenerative arthrosis and deformity. Prominent plantar surface ulceration without compelling evidence for acute osteomyelitis involving the forefoot, midfoot or hindfoot. 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 (2) Foot ulcer due to secondary DM (3) Cellulitis of lower extremity Assessment & Plan: This is a 48-year-old male with known history of prior infections and surgical mention of his lower extremity Charcot's foot who is been recovering in a nursing facility until recently noted to have more edema cellulitis and drainage. Leukocytosis, HD stable, renal insufficiency, dehydration. Admitted for further care and management IV antibiotics as per infectious disease Podiatry consultation appreciated Trend labs MRI of right and left lower extremity noted We will continue with local wound care and antibiotics. Will discuss with podiatry potential necessity for further surgical intervention. no plans at this time Thank you for allowing me to participate in patient's care will continue to follow with recognitions Melquiades Rush Aug 14, 2019 19:10
--- NOTE | 2019-08-14 19:38 | NUR ---
HAND-OFF: Report given to Harry Walters Rn.Patient stable during hand off. Plan of care endorsed.
--- NOTE | 2019-08-14 19:39 | NUR ---
NURSE NOTES: Received patient from Sandra ANTONIO. Patient is awake and oriented x2. Receiving oxygen via room air, showing no signs of respiratory distress. Condom catheter is patent and draining. IV site is right Forearm 20g receiving NS at 100cc/hr. Bed is locked, placed in lowest position, side rails up x3, call light within reach, bed alarm on. Will continue to monitor.
[2019-08-14 20:00] VITALS: BP 153/86
[2019-08-14] MEDS: Dyna-Hex 2% Top Sol 2oz TOPIC SCH (20:03)
[2019-08-14] MEDS: Tamsulosin 0.4mg cap ORAL SCH (20:46)
[2019-08-14] MEDS: Atorvastatin 20mg tab ORAL SCH (20:47)
[2019-08-14] MEDS: Latanoprost 0.005% Opth 2.5ml Soln RIGHT EYE SCH (20:48)
[2019-08-15] VITALS: BP 124/64
[2019-08-15 04:00] VITALS: BP 154/92
--- NOTE | 2019-08-15 06:15 | Progress Note ---
DATE: 08/14/2019 SUBJECTIVE: The patient is asleep and arousable. He is a poor historian. Low energy. Did not know the date. MENTAL STATUS EXAMINATION: The patient is alert and oriented x2. Mood is neutral. Affect is blunted. Congruent with mood. Thought process is concrete. Thought content, no suicidal or homicidal ideations. ASSESSMENT: 1. The patient is more disoriented today. 2. Acute encephalopathy. PLAN: 1. We will continue current medications. 2. Discussed with the staff. Olena Diaz M.D. DR: Kalyn JOB#: [id number] CC:
[2019-08-15] MEDS: NovoLOG Insulin Flexpen SUBQ SCH ×7 (06:22→21:52)
--- NOTE | 2019-08-15 07:53 | NUR ---
HAND-OFF: Report given to Luis Daniel ANTONIO. Patient in stable condition.
[2019-08-15 08:00] VITALS: BP 126/80
--- NOTE | 2019-08-15 08:17 | NUR ---
NURSE NOTES: Pt in bed in low position, call light at bedside, pt NPO for cardiac stress test, HOB in high fowlers, IV patent and asymptomatic, pt denies pain, pt appears tired as he is resting in bed, pt has bathroom privileges, no s/s of distress or sob noted.
--- NOTE | 2019-08-15 09:40 | NUR ---
PT NOTE Stress test rescheduled for today. Dr. Augustine requested to hold PT intervention until after stress test is completed and he has reviewed the results to determine clearance to resume PT. Per Dr. Haas patient is to be NWB BLE. Luis Daniel ANTONIO notified, will follow.
--- NOTE | 2019-08-15 10:38 | General Progress Note ---
Assessment/Plan Status: stable, unchanged Assessment/Plan: S: I need my eye drop O: Is advised against walking on the affected foot for now . Pain is well controlled . PHYSICAL EXAMINATION: . HEAD AND NECK: multiple molars with plaques, Atraumatic and normocephalic. CHEST: Clear to auscultation. No wheezing. No crackles.HEART: S1 and S2. Regular rate and rhythm. No S3. No S4. ABDOMEN: Soft. No organomegaly.MUSCULOSKELETAL: Positive for bilater Charcot' s foot. Positive for stump of the prior tarsometatarsal resections. open wound in plantar aspect of left foot NEUROLOGIC: The patient is awake, alert, and oriented x3.PSYCHIATRIC: Mood and affect is normal LABORATORY DATA: Dated 08/13/2019 reviewed Echo from 08/12/19 reviewed , MRI from 08/13/19 reviewed A/P: 1- Sever Gram negative Sepsis : Resolved 2. Acute cellulitis with or with out Acute OM of left foot. 2- DM- uncontrolled 3. Non compliance with medications 3- Charcot Foot- Left sided 4- HTN 5- Psych 6. Acute on Chronic KD Plan: MRI of the foot reviewed Cardiology notes are reviewed current empiricall abx Will monitor Cr level.[place] zone in terms of medical necessity for initiation of HD. Will monitor Cr for now\ No surgical intervention in foot. I will c/w current abx Subjective Allergies: Coded Allergies: METFORMIN (Verified Allergy, Unknown, 10/09/18) Vomiting Objective Last 24 Hour Vital Signs Date Time Temp Pulse Resp B/P (MAP) Pulse Ox O2 Delivery O2 Flow Rate FiO2 08/15/19 09:31 Room Air 08/15/19 08:00 98.2 79 20 126/80 (95) 93 08/15/19 04:00 99.2 88 18 154/92 (112) 90 08/15/19 03:57 87 08/15/19 00:00 99.1 63 18 124/64 (84) 96 08/14/19 23:57 86 08/14/19 21:00 Room Air 08/14/19 20:00 99.7 89 18 153/86 (108) 94 08/14/19 19:53 86 08/14/19 16:00 98.5 79 23 130/78 (95) 97 08/14/19 16:00 88 08/14/19 12:00 98.8 86 20 130/76 (94) 96 08/14/19 12:00 88 Intake and Output 08/14/19 08/15/19 19:00 07:00 Intake Total 2355 ml Output Total 1000 ml Balance 2355 ml -1000 ml Intake Oral 1800 ml IV Total 555 ml Output Urine Total 1000 ml # Voids 4 # Bowel Movements 1 Laboratory Tests 08/14/19 10:45: Prothrombin Time 10.5, Prothromb Time International Ratio 1.0, Activated Partial Thromboplast Time 32, Sodium Level 131L, Potassium Level 4.5, Chloride Level 100, Carbon Dioxide Level 19L, Anion Gap 12, Blood Urea Nitrogen 57H, Creatinine 4.8H, Estimat Glomerular Filtration Rate 12.9, Glucose Level 198H, Uric Acid 7.9H, Calcium Level 8.2L, Phosphorus Level 4.3, Total Bilirubin 0.5, Aspartate Amino Transf (AST/SGOT) 93H, Alanine Aminotransferase (ALT/SGPT) 81H, Alkaline Phosphatase 165H, Total Protein 6.9, Albumin 1.9L, Globulin 5.0, Albumin/Globulin Ratio 0.4L, Hepatitis B Surface Antigen [Pending], Hepatitis B Surface Antibody, Quant [Pending], Hepatitis C Antibody [Pending] Height (Feet): 6 Height (Inches): 1.00 Weight (Pounds): 233 Dexter Haas MD Aug 15, 2019 10:38
[2019-08-15] MEDS: Levemir Flexpen SUBQ SCH ×2 (10:50→12:24)
[2019-08-15] MEDS: Aspirin EC 81mg tab ORAL SCH (10:52)
[2019-08-15] MEDS: Docusate 100mg cap ORAL SCH ×2 (10:53→18:00)
[2019-08-15] MEDS: Multivitamin w/Minerals tab ORAL SCH ×2 (10:59→18:24)
[2019-08-15] MEDS: Heparin 5000 units/ml inj SUBQ SCH ×2 (11:01→21:48)
[2019-08-15] MEDS: Cosopt Opth Soln 10 mL Btl RIGHT EYE SCH ×2 (11:02→18:24)
[2019-08-15 11:04] LABS: BASOPHILS % (AUTO) 0.6 % (0.0-2.0); EOSINOPHILS % (AUTO) 2.6 % (0.0-3.0); HEMATOCRIT 27.6 % (42.0-52.0); HEMOGLOBIN 8.8 G/DL (14.2-18.0); LYMPHOCYTES % (AUTO) 11.6 % (20.0-45.0); MEAN CORPUSCULAR VOLUME 85 FL (80-99); MONOCYTES % (AUTO) 8.9 % (1.0-10.0); NEUTROPHILS % (AUTO) 76.3 % (45.0-75.0); PLATELET COUNT 278 K/UL (150-450); RED BLOOD COUNT 3.26 M/UL (4.70-6.10); RED CELL DISTRIBUTION WIDTH 14.9 % (11.6-14.8); WHITE BLOOD COUNT 7.6 K/UL (4.8-10.8)
[2019-08-15] MEDS: Meropenem 1 GM in NS 55 ML IVPB SCH ×2 (11:26→23:40)
[2019-08-15 11:30] LABS: ALANINE AMINOTRANSFERASE 73 U/L (12-78); ALBUMIN 1.8 G/DL (3.4-5.0); ALBUMIN/GLOBULIN RATIO 0.3 (1.0-2.7); ALKALINE PHOSPHATASE 160 U/L (46-116); ANION GAP 10 mmol/L (5-15); ASPARTATE AMINO TRANSFERASE 83 U/L (15-37); BILIRUBIN,TOTAL 0.5 MG/DL (0.2-1.0); BLOOD UREA NITROGEN 51 mg/dL (7-18); CALCIUM 8.7 MG/DL (8.5-10.1); CARBON DIOXIDE 21 MMOL/L (21-32); CHLORIDE 104 MMOL/L (98-107); CREATININE 3.9 MG/DL (0.55-1.30); PHOSPHORUS 4.3 MG/DL (2.5-4.9); POTASSIUM 4.4 MMOL/L (3.5-5.1); SODIUM 135 MMOL/L (136-145)
[2019-08-15 12:00] VITALS: BP 140/76
--- NOTE | 2019-08-15 12:37 | Surgery Progress Note ---
Surgery Progress Note Subjective Additional Comments no acute events comfortable stable labs improving Objective Last 24 Hour Vital Signs Date Time Temp Pulse Resp B/P (MAP) Pulse Ox O2 Delivery O2 Flow Rate FiO2 08/15/19 09:31 Room Air 08/15/19 08:00 98.2 79 20 126/80 (95) 93 08/15/19 04:00 99.2 88 18 154/92 (112) 90 08/15/19 03:57 87 08/15/19 00:00 99.1 63 18 124/64 (84) 96 08/14/19 23:57 86 08/14/19 21:00 Room Air 08/14/19 20:00 99.7 89 18 153/86 (108) 94 08/14/19 19:53 86 08/14/19 16:00 98.5 79 23 130/78 (95) 97 08/14/19 16:00 88 I&O Intake and Output 08/14/19 08/15/19 18:59 06:59 Intake Total 2455 ml Output Total 1000 ml Balance 2455 ml -1000 ml Intake Oral 1800 ml IV Total 655 ml Output Urine Total 1000 ml # Voids 4 # Bowel Movements 1 Dressing: saturated Wound: clean Cardiovascular: RSR Respiratory: clear Abdomen: soft, flat, non-tender, present bowel sounds Extremities: edema, no tenderness, no cyanosis Laboratory Tests Test 08/15/19 10:50 08/15/19 11:00 White Blood Count 7.6 K/UL (4.8-10.8) Red Blood Count 3.26 M/UL (4.70-6.10) L Hemoglobin 8.8 G/DL (14.2-18.0) L Hematocrit 27.6 % (42.0-52.0) L Mean Corpuscular Volume 85 FL (80-99) Mean Corpuscular Hemoglobin 27.1 PG (27.0-31.0) Mean Corpuscular Hemoglobin Concent 32.0 G/DL (32.0-36.0) Red Cell Distribution Width 14.9 % (11.6-14.8) H Platelet Count 278 K/UL (150-450) Mean Platelet Volume 5.8 FL (6.5-10.1) L Neutrophils (%) (Auto) 76.3 % (45.0-75.0) H Lymphocytes (%) (Auto) 11.6 % (20.0-45.0) L Monocytes (%) (Auto) 8.9 % (1.0-10.0) Eosinophils (%) (Auto) 2.6 % (0.0-3.0) Basophils (%) (Auto) 0.6 % (0.0-2.0) Sodium Level 135 MMOL/L (136-145) L Potassium Level 4.4 MMOL/L (3.5-5.1) Chloride Level 104 MMOL/L (98-107) Carbon Dioxide Level 21 MMOL/L (21-32) Anion Gap 10 mmol/L (5-15) Blood Urea Nitrogen 51 mg/dL (7-18) H Creatinine 3.9 MG/DL (0.55-1.30) H Estimat Glomerular Filtration Rate 16.4 mL/min (>60) Glucose Level 84 MG/DL (74-106) # Calcium Level 8.7 MG/DL (8.5-10.1) Phosphorus Level 4.3 MG/DL (2.5-4.9) Magnesium Level 2.1 MG/DL (1.8-2.4) Total Bilirubin 0.5 MG/DL (0.2-1.0) Aspartate Amino Transf (AST/SGOT) 83 U/L (15-37) H Alanine Aminotransferase (ALT/SGPT) 73 U/L (12-78) Alkaline Phosphatase 160 U/L (46-116) H C-Reactive Protein, Quantitative 21.9 mg/dL (0.00-0.90) H Pro-B-Type Natriuretic Peptide 5111 pg/mL (0-125) H Total Protein 7.0 G/DL (6.4-8.2) Albumin 1.8 G/DL (3.4-5.0) L Globulin 5.2 g/dL Albumin/Globulin Ratio 0.3 (1.0-2.7) L Plan Problems: (1) Osteomyelitis of ankle or foot, left, acute Assessment & Plan: Left Foot plain films FINDINGS: Bones joints: No acute fracture. No dislocation. Surgical absence of the fifth phalanges and distal half of the fifth metatarsal bone. Marked deformity in the mid foot and base of the first metatarsal bone likely posttraumatic post surgical change. Soft tissues: Soft tissue swelling about the plantar aspect of the foot. No radiopaque foreign body. IMPRESSION: 1. Marked deformity in the mid foot likely postsurgical posttraumatic change. 2. No gross acute bony abnormality. 3. Status post resection of the fifth phalanges as described Extensive destruction of the midfoot likely on the basis of neuropathic disease (Charcot foot). Suggest correlation with plain x-ray. The presence of superimposed osteomyelitis involving the area of the midfoot, anterior hindfoot and posterior forefoot is not excludable. Advanced Charcot foot with superimposed degenerative arthrosis and deformity. Prominent plantar surface ulceration without compelling evidence for acute osteomyelitis involving the forefoot, midfoot or hindfoot. 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 (2) Foot ulcer due to secondary DM (3) Cellulitis of lower extremity Assessment & Plan: This is a 48-year-old male with known history of prior infections and surgical mention of his lower extremity Charcot's foot who is been recovering in a nursing facility until recently noted to have more edema cellulitis and drainage. Leukocytosis, HD stable, renal insufficiency, dehydration. Admitted for further care and management Will discuss with podiatry potential necessity for further surgical intervention. no plans at this time IV antibiotics as per infectious disease Podiatry consultation appreciated Trend labs MRI of right and left lower extremity noted We will continue with local wound care and antibiotics. Thank you for allowing me to participate in patient's care will continue to follow with recognitions Melquiades Rush Aug 15, 2019 12:37
--- NOTE | 2019-08-15 13:38 | NUR ---
CASE MANAGEMENT: REVIEW 08/15/19 SI: SEPSIS, ACUTE RF 98.2 79 20 126/80 93%RA NA+135; BUN 51; CRE 3.8; URIC ACID 7.9; CA 8.2; RBC 3.26; H/H 8.8/27.6 08/11/19 TROP+=0.225; BNP 5111; C-REC PRO 21.9 IS: HEPARIN SQ Q12 IV DAPTOMYCIN Q24 IV MEROPENEM Q12 SEROQUEL PO Q12H HYDRALAZINE PO Q4/PRN NOVOLOG QD TIAC LEVEMIR SQ BID LIPITOR PO HS NEURONTIN PO BID IVF NS @100/HR FLOMAX PO HS ASPIRIN PO QD COSOPT OD BID : TX TO 2E TELE UNIT PLAN: CONSIDER FOR DIALYSIS STAT LAB DONE TODAY
--- NOTE | 2019-08-15 13:50 | Infectious Diseases Prog Note ---
Assessment/Plan Problems: (1) Acute on chronic osteomyelitis Assessment & Plan: with bony destruction on MRI and charcot joint related bony changes , can't rule out underlying osteomyelitis . will treat him with meropenem for 6 weeks to cover osteomyelitis of the feet . monitor ck weekly , needs close follow up with allocation analyst for monitoring of his foot wound (2) Renal failure (ARF), acute on chronic Assessment & Plan: may need HD , since not much UOP , avoid nephrotoxics , continue hydration, close monitoring of renal function, renal is following (3) Poorly controlled diabetes mellitus Assessment & Plan: recommend tight glycemic control to keep blood glucose between 100-140 (4) Diabetic foot infection Assessment & Plan: with ESBL producing Klebsiella Pneumonia and citrobacter diversus , already on wide spectrum antibiotics , keep leg elevated while in bed, with tight glycemic control, local wound dressings as per allocation analyst (5) Sepsis Assessment & Plan: with Citrobacter diversus , suspect source is his left foot chronic wound with infection , continue meropenem for now to cover for ESBL producing Klebsiella pneumoniae . may need surgical debridement of the left foot for source control and possible wound VAC, allocation analyst is following . will treat him with meropenem for 6 weeks for osteomyelitis of the feet Subjective Constitutional: Reports: fatigue HEENT: Reports: no symptoms Respiratory: Reports: no symptoms Breasts: Reports: no symptoms Cardiovascular: Reports: no symptoms Gastrointestinal/Abdominal: Reports: no symptoms Genitourinary: Reports: no symptoms Neurologic: Reports: weakness Psychiatric: Reports: depression Skin: Reports: ulcer Endocrine: Reports: no symptoms Hematologic: Reports: no symptoms Musculoskeletal: Reports: pain Allergies: Coded Allergies: METFORMIN (Verified Allergy, Unknown, 10/09/18) Vomiting Objective Vital Signs Last 24 Hour Vital Signs Date Time Temp Pulse Resp B/P (MAP) Pulse Ox O2 Delivery O2 Flow Rate FiO2 08/15/19 09:31 Room Air 08/15/19 08:00 98.2 79 20 126/80 (95) 93 08/15/19 04:00 99.2 88 18 154/92 (112) 90 08/15/19 03:57 87 08/15/19 00:00 99.1 63 18 124/64 (84) 96 08/14/19 23:57 86 08/14/19 21:00 Room Air 08/14/19 20:00 99.7 89 18 153/86 (108) 94 08/14/19 19:53 86 08/14/19 16:00 98.5 79 23 130/78 (95) 97 08/14/19 16:00 88 Height (Feet): 6 Height (Inches): 1.00 Weight (Pounds): 233 General Appearance: WD/WN, no acute distress HEENT: normocephalic, atraumatic, anicteric, mucous membranes moist Respiratory/Chest: chest wall non-tender, lungs clear, normal breath sounds, no respiratory distress, no accessory muscle use Cardiovascular: normal peripheral pulses, normal rate, regular rhythm, no gallop/murmur, no JVD Abdomen: normal bowel sounds, soft, non tender, no organomegaly, non distended , no mass, no scars Genitourinary: normal external genitalia Extremities: no cyanosis, no clubbing Skin: no rash, no lesions, ulcers - deep on the left foot sole , and superficial on the right foot Neurologic/Psychiatric: alert, oriented x 3, responsive Lymphatic: no neck adenopathy, no groin adenopathy Musculoskeletal: normal muscle bulk, no effusion Microbiology Date/Time Source Procedure Growth Status 08/13/19 14:35 Blood Blood Culture - Preliminary NO GROWTH AFTER 24 HOURS Resulted 08/13/19 14:20 Blood Blood Culture - Preliminary NO GROWTH AFTER 24 HOURS Resulted 08/13/19 00:18 Urine,Clean Catch Urine Culture - Final NO GROWTH AFTER 48 HOURS Complete Laboratory Tests Test 08/15/19 10:50 08/15/19 11:00 White Blood Count 7.6 K/UL (4.8-10.8) Red Blood Count 3.26 M/UL (4.70-6.10) L Hemoglobin 8.8 G/DL (14.2-18.0) L Hematocrit 27.6 % (42.0-52.0) L Mean Corpuscular Volume 85 FL (80-99) Mean Corpuscular Hemoglobin 27.1 PG (27.0-31.0) Mean Corpuscular Hemoglobin Concent 32.0 G/DL (32.0-36.0) Red Cell Distribution Width 14.9 % (11.6-14.8) H Platelet Count 278 K/UL (150-450) Mean Platelet Volume 5.8 FL (6.5-10.1) L Neutrophils (%) (Auto) 76.3 % (45.0-75.0) H Lymphocytes (%) (Auto) 11.6 % (20.0-45.0) L Monocytes (%) (Auto) 8.9 % (1.0-10.0) Eosinophils (%) (Auto) 2.6 % (0.0-3.0) Basophils (%) (Auto) 0.6 % (0.0-2.0) Sodium Level 135 MMOL/L (136-145) L Potassium Level 4.4 MMOL/L (3.5-5.1) Chloride Level 104 MMOL/L (98-107) Carbon Dioxide Level 21 MMOL/L (21-32) Anion Gap 10 mmol/L (5-15) Blood Urea Nitrogen 51 mg/dL (7-18) H Creatinine 3.9 MG/DL (0.55-1.30) H Estimat Glomerular Filtration Rate 16.4 mL/min (>60) Glucose Level 84 MG/DL (74-106) # Calcium Level 8.7 MG/DL (8.5-10.1) Phosphorus Level 4.3 MG/DL (2.5-4.9) Magnesium Level 2.1 MG/DL (1.8-2.4) Total Bilirubin 0.5 MG/DL (0.2-1.0) Aspartate Amino Transf (AST/SGOT) 83 U/L (15-37) H Alanine Aminotransferase (ALT/SGPT) 73 U/L (12-78) Alkaline Phosphatase 160 U/L (46-116) H C-Reactive Protein, Quantitative 21.9 mg/dL (0.00-0.90) H Pro-B-Type Natriuretic Peptide 5111 pg/mL (0-125) H Total Protein 7.0 G/DL (6.4-8.2) Albumin 1.8 G/DL (3.4-5.0) L Globulin 5.2 g/dL Albumin/Globulin Ratio 0.3 (1.0-2.7) L Current Medications Medications (Trade) Dose Ordered Sig/Aylin Route PRN Reason Start Time Stop Time Status Last Admin Dose Admin Acetaminophen (Tylenol) 650 mg Q4H PRN ORAL Mild Pain/Temp > 100.5 08/12/19 00:15 09/09/19 08:14 08/13/19 17:42 Aspirin (Ecotrin) 81 mg DAILY ORAL 08/12/19 19:30 09/11/19 19:29 08/15/19 10:52 Atorvastatin Calcium (Lipitor) 40 mg BEDTIME ORAL 08/12/19 21:00 09/09/19 20:59 08/14/19 20:47 Bisacodyl (Dulcolax) 10 mg DAILY PRN RECTAL Constipation 08/11/19 23:00 09/10/19 22:59 Chlorhexidine Gluconate (Ariadna-Hex 2%) 1 applic DAILY@2000 TOPIC 08/13/19 20:00 09/12/19 19:59 08/14/19 20:03 Daptomycin 970 mg/ Sodium Chloride 55 ml @ 100 mls/hr Q48H IV 08/15/19 21:00 08/22/19 20:59 Dextrose (Dextrose 50%) 25 ml Q30M PRN IV Hypoglycemia 08/11/19 23:15 09/09/19 07:14 Dextrose (Dextrose 50%) 50 ml Q30M PRN IV Hypoglycemia 08/11/19 23:15 09/09/19 07:14 Docusate Sodium (Colace) 100 mg TWICE A DAY ORAL 08/12/19 18:45 09/11/19 18:44 08/15/19 10:53 Dorzolamide/ Timolol (Cosopt) 1 drop TWICE A DAY RIGHT EYE 08/14/19 09:00 09/13/19 08:59 08/15/19 11:02 Escitalopram Oxalate (Lexapro) 10 mg DAILY ORAL 08/12/19 09:00 09/09/19 08:59 08/15/19 10:59 Famotidine (Pepcid) 20 mg DAILY@0630 ORAL 08/12/19 06:30 09/10/19 06:29 08/15/19 06:21 Fish Oil (Fish Oil) 1,000 mg BID ORAL 08/12/19 18:45 09/11/19 18:44 08/15/19 10:52 Gabapentin (Neurontin) 300 mg BID ORAL 08/12/19 18:46 09/11/19 18:45 08/14/19 18:08 Gabapentin (Neurontin) 600 mg BEDTIME ORAL 08/12/19 21:00 09/09/19 20:59 08/14/19 20:49 Heparin Sodium (Porcine) (Heparin 5000 units/ml) 5,000 units EVERY 12 HOURS SUBQ 08/12/19 09:00 09/09/19 08:59 08/15/19 11:01 Heparin Sodium/ Sodium Chloride (Heparin 1000 units/500ml Premix) 1,000 unit ONCE PRN IV PICC PLACEMENT 08/14/19 06:30 08/16/19 23:59 Hydralazine HCl (Apresoline) 25 mg Q4H PRN ORAL bp over 160 syst 08/11/19 23:45 09/09/19 11:44 Insulin Aspart (NovoLOG) BEFORE MEALS AND HS SUBQ 08/12/19 06:30 09/09/19 11:29 08/15/19 06:23 Insulin Aspart (NovoLOG) 15 units NOVOTIAC SUBQ 08/12/19 11:50 09/09/19 11:49 08/15/19 11:50 Insulin Detemir (Levemir) 35 units Q12HR SUBQ 08/13/19 21:00 09/12/19 20:59 08/15/19 12:24 Latanoprost (Xalatan) 1 drop BEDTIME RIGHT EYE 08/13/19 21:00 09/12/19 20:59 08/14/19 20:48 Meropenem 1 gm/ Sodium Chloride 55 ml @ 110 mls/hr Q12HR@1100,2300 IVPB 08/13/19 01:00 08/18/19 00:59 08/15/19 11:26 Multivitamins Therapeutic (Therapeutic Multivitamin) 1 ea BID ORAL 08/12/19 18:46 09/11/19 18:45 08/15/19 10:59 Quetiapine Fumarate (SEROquel) 50 mg Q12HR ORAL 08/12/19 09:00 09/11/19 08:59 08/14/19 20:46 Regadenoson (Lexiscan) 0.4 mg ONCE PRN IV STRESS TEST 08/14/19 08:45 08/15/19 23:59 08/15/19 13:44 Sodium Chloride 1,000 ml @ 100 mls/hr Q10H IV 08/12/19 12:15 09/11/19 12:14 08/14/19 23:47 Tamsulosin HCl (Flomax) 0.4 mg BEDTIME ORAL 08/12/19 21:00 09/09/19 20:59 08/14/19 20:46 Tamsulosin HCl (Flomax) 0.4 mg BEDTIME ORAL 08/15/19 21:00 09/14/19 20:59 Kwasi Martinez M.D. Aug 15, 2019 13:50
--- NOTE | 2019-08-15 14:48 | Nephrology Progress Note ---
Assessment/Plan Problem List: (1) Renal failure (ARF), acute on chronic (2) Diabetic nephropathy (3) Cellulitis of lower extremity Assessment Acute on chronic renal failure- Diabetic Nephropathy DM OOC Anemia Electrolyte imbalance HTN Plan today's labs reviewed Cr lower for second day in row previously Refuses ch- bladder scan: Zero Hydrate Keep BP and BS in check avoid nephrotoxics monitor renal parameters 2D echo Left ventricular ejection fraction is estimated to be 55%. COOPER kidney unremarkable Urine studies NS and or Albumin bolus Subjective ROS Limited/Unobtainable: No Constitutional: Reports: malaise Objective Objective Last 24 Hour Vital Signs Date Time Temp Pulse Resp B/P (MAP) Pulse Ox O2 Delivery O2 Flow Rate FiO2 08/15/19 09:31 Room Air 08/15/19 08:00 98.2 79 20 126/80 (95) 93 08/15/19 04:00 99.2 88 18 154/92 (112) 90 08/15/19 03:57 87 08/15/19 00:00 99.1 63 18 124/64 (84) 96 08/14/19 23:57 86 08/14/19 21:00 Room Air 08/14/19 20:00 99.7 89 18 153/86 (108) 94 08/14/19 19:53 86 08/14/19 16:00 98.5 79 23 130/78 (95) 97 08/14/19 16:00 88 Intake and Output 08/14/19 08/15/19 18:59 06:59 Intake Total 2455 ml Output Total 1000 ml Balance 2455 ml -1000 ml Intake Oral 1800 ml IV Total 655 ml Output Urine Total 1000 ml # Voids 4 # Bowel Movements 1 Laboratory Tests 08/15/19 10:50: White Blood Count 7.6, Red Blood Count 3.26L, Hemoglobin 8.8L, Hematocrit 27.6L , Mean Corpuscular Volume 85, Mean Corpuscular Hemoglobin 27.1, Mean Corpuscular Hemoglobin Concent 32.0, Red Cell Distribution Width 14.9H, Platelet Count 278, Mean Platelet Volume 5.8L, Neutrophils (%) (Auto) 76.3H, Lymphocytes (%) (Auto) 11.6L, Monocytes (%) (Auto) 8.9, Eosinophils (%) (Auto) 2.6, Basophils (%) (Auto) 0.6 10/4/19 11:00: Sodium Level 135L, Potassium Level 4.4, Chloride Level 104, Carbon Dioxide Level 21, Anion Gap 10, Blood Urea Nitrogen 51H, Creatinine 3.9H, Estimat Glomerular Filtration Rate 16.4, Glucose Level 84#, Calcium Level 8.7, Phosphorus Level 4.3, Magnesium Level 2.1, Total Bilirubin 0.5, Aspartate Amino Transf (AST/SGOT) 83H, Alanine Aminotransferase (ALT/SGPT) 73, Alkaline Phosphatase 160H, C-Reactive Protein, Quantitative 21.9H, Pro-B-Type Natriuretic Peptide 5111H, Total Protein 7.0, Albumin 1.8L, Globulin 5.2, Albumin/Globulin Ratio 0.3L Height (Feet): 6 Height (Inches): 1.00 Weight (Pounds): 233 General Appearance: no apparent distress Cardiovascular: normal rate Respiratory/Chest: lungs clear Abdomen: soft Objective no change Ernesto Frost MD Aug 15, 2019 14:48
--- NOTE | 2019-08-15 15:03 | Cardiology Report ---
APPROVED REPORT EKG Measurement Heart [id number] Normal sinus rhythm Possible Inferior infarct, age undetermined Abnormal ECG
--- NOTE | 2019-08-15 15:08 | NUR ---
NURSE NOTES: Asked the pt if he was ready for hemodialysis catheter to be placed, pt said to give him a couple of days, Md Haas and Margot ross
--- NOTE | 2019-08-15 15:38 | NUR ---
NM Myocardial Perfusion scan complete.
--- NOTE | 2019-08-15 19:13 | NUR ---
NURSE NOTES: Received report from PACO Cary. Pt in bed, alert and talkative. Pt able to make needs known. In no acute distress. Bed in lowest position. Call lights within reach. Will continue plan of care.
--- NOTE | 2019-08-15 19:13 | NUR ---
HAND-OFF: Report given to Ivan Lo.
[2019-08-15 20:00] VITALS: BP 160/87
[2019-08-15] MEDS: Dyna-Hex 2% Top Sol 2oz TOPIC SCH (20:00)
[2019-08-15] MEDS ORDERED: Tamsulosin 0.4mg cap ORAL SCH (21:00)
[2019-08-15] MEDS ORDERED: DAPTOMYCIN IV SCH (21:00)
[2019-08-15] MEDS ORDERED: NS IV SCH (21:00)
[2019-08-15] MEDS: Tamsulosin 0.4mg cap ORAL SCH (21:42)
[2019-08-15] MEDS: Atorvastatin 20mg tab ORAL SCH (21:42)
[2019-08-15] MEDS: Latanoprost 0.005% Opth 2.5ml Soln RIGHT EYE SCH (22:09)
[2019-08-16] MEDS: NovoLOG Insulin Flexpen SUBQ SCH ×6 (06:53→18:07)
--- NOTE | 2019-08-16 07:03 | General Progress Note ---
Assessment/Plan Problem List: (1) Foot ulcer due to secondary DM ICD Codes: E13.621 - Other specified diabetes mellitus with foot ulcer; L97.509 - Non-pressure chronic ulcer of other part of unspecified foot with unspecified severity SNOMED: 1040033, 033826562 (2) Diabetic nephropathy ICD Codes: E11.21 - Type 2 diabetes mellitus with diabetic nephropathy SNOMED: 91178944, 911746319 (3) Poorly controlled diabetes mellitus ICD Codes: E11.65 - Type 2 diabetes mellitus with hyperglycemia SNOMED: 47955863, 002083823 (4) MDD (major depressive disorder), recurrent episode, moderate ICD Codes: F33.1 - Major depressive disorder, recurrent, moderate SNOMED: 99640689, 038848932 Status: stable, unchanged Assessment/Plan: reduce Levemir to 30 units bid continue Novolog 15 units ac tid - hold if not eating continue NISS ac / hs Subjective Allergies: Coded Allergies: METFORMIN (Verified Allergy, Unknown, 10/09/18) Vomiting All Systems: reviewed and negative except above Subjective events noted fair glycemic control Item Value Date Time Bedside Blood Glucose 144 mg/dl H 08/16/19 0655 Bedside Blood Glucose 144 mg/dl H 08/15/19 2152 Bedside Blood Glucose 159 mg/dl H 08/15/19 1725 Bedside Blood Glucose 110 mg/dl 08/15/19 1224 Bedside Blood Glucose 80 mg/dl 08/15/19 1050 Bedside Blood Glucose 123 mg/dl H 08/15/19 0630 Objective Last 24 Hour Vital Signs Date Time Temp Pulse Resp B/P (MAP) Pulse Ox O2 Delivery O2 Flow Rate FiO2 08/16/19 04:00 78 08/16/19 00:00 84 08/15/19 21:00 Room Air 08/15/19 20:00 98.4 79 21 160/87 (111) 91 08/15/19 20:00 79 08/15/19 15:56 77 08/15/19 12:00 98.0 73 22 140/76 (97) 91 08/15/19 11:42 76 08/15/19 09:31 Room Air 08/15/19 08:00 98.2 79 20 126/80 (95) 93 08/15/19 07:46 78 Intake and Output 08/15/19 08/16/19 19:00 07:00 Intake Total 500 ml Output Total 2000 ml 1800 ml Balance -1500 ml -1800 ml Intake Oral 500 ml Output Urine Total 2000 ml 1800 ml # Bowel Movements 1 1 Laboratory Tests 08/15/19 10:50: White Blood Count 7.6, Red Blood Count 3.26L, Hemoglobin 8.8L, Hematocrit 27.6L , Mean Corpuscular Volume 85, Mean Corpuscular Hemoglobin 27.1, Mean Corpuscular Hemoglobin Concent 32.0, Red Cell Distribution Width 14.9H, Platelet Count 278, Mean Platelet Volume 5.8L, Neutrophils (%) (Auto) 76.3H, Lymphocytes (%) (Auto) 11.6L, Monocytes (%) (Auto) 8.9, Eosinophils (%) (Auto) 2.6, Basophils (%) (Auto) 0.6 08/15/19 11:00: Sodium Level 135L, Potassium Level 4.4, Chloride Level 104, Carbon Dioxide Level 21, Anion Gap 10, Blood Urea Nitrogen 51H, Creatinine 3.9H, Estimat Glomerular Filtration Rate 16.4, Glucose Level 84#, Calcium Level 8.7, Phosphorus Level 4.3, Magnesium Level 2.1, Total Bilirubin 0.5, Aspartate Amino Transf (AST/SGOT) 83H, Alanine Aminotransferase (ALT/SGPT) 73, Alkaline Phosphatase 160H, C-Reactive Protein, Quantitative 21.9H, Pro-B-Type Natriuretic Peptide 5111H, Total Protein 7.0, Albumin 1.8L, Globulin 5.2, Albumin/Globulin Ratio 0.3L Height (Feet): 6 Height (Inches): 1.00 Weight (Pounds): 233 General Appearance: no apparent distress Neck: normal alignment Cardiovascular: regular rhythm Respiratory/Chest: lungs clear Abdomen: normal bowel sounds Objective Current Medications Medications (Trade) Dose Ordered Sig/Aylin Route PRN Reason Start Time Stop Time Status Last Admin Dose Admin Acetaminophen (Tylenol) 650 mg Q4H PRN ORAL Mild Pain/Temp > 100.5 08/12/19 00:15 09/09/19 08:14 08/13/19 17:42 Aspirin (Ecotrin) 81 mg DAILY ORAL 08/12/19 19:30 09/11/19 19:29 08/15/19 10:52 Atorvastatin Calcium (Lipitor) 40 mg BEDTIME ORAL 08/12/19 21:00 09/09/19 20:59 08/15/19 21:42 Bisacodyl (Dulcolax) 10 mg DAILY PRN RECTAL Constipation 08/11/19 23:00 09/10/19 22:59 Chlorhexidine Gluconate (Ariadna-Hex 2%) 1 applic DAILY@2000 TOPIC 08/13/19 20:00 09/12/19 19:59 08/14/19 20:03 Daptomycin 970 mg/ Sodium Chloride 55 ml @ 100 mls/hr Q48H IV 08/15/19 21:00 08/22/19 20:59 08/15/19 22:09 Dextrose (Dextrose 50%) 25 ml Q30M PRN IV Hypoglycemia 08/11/19 23:15 09/09/19 07:14 Dextrose (Dextrose 50%) 50 ml Q30M PRN IV Hypoglycemia 08/11/19 23:15 09/09/19 07:14 Docusate Sodium (Colace) 100 mg TWICE A DAY ORAL 08/12/19 18:45 09/11/19 18:44 08/15/19 10:53 Dorzolamide/ Timolol (Cosopt) 1 drop TWICE A DAY RIGHT EYE 08/14/19 09:00 09/13/19 08:59 08/15/19 18:24 Escitalopram Oxalate (Lexapro) 10 mg DAILY ORAL 08/12/19 09:00 09/09/19 08:59 08/15/19 10:59 Famotidine (Pepcid) 20 mg DAILY@0630 ORAL 08/12/19 06:30 09/10/19 06:29 08/16/19 06:37 Fish Oil (Fish Oil) 1,000 mg BID ORAL 08/12/19 18:45 09/11/19 18:44 08/15/19 18:24 Gabapentin (Neurontin) 300 mg BID ORAL 08/12/19 18:46 09/11/19 18:45 08/15/19 18:24 Gabapentin (Neurontin) 600 mg BEDTIME ORAL 08/12/19 21:00 09/09/19 20:59 08/15/19 21:43 Heparin Sodium (Porcine) (Heparin 5000 units/ml) 5,000 units EVERY 12 HOURS SUBQ 08/12/19 09:00 09/09/19 08:59 08/15/19 21:48 Heparin Sodium/ Sodium Chloride (Heparin 1000 units/500ml Premix) 1,000 unit ONCE PRN IV PICC PLACEMENT 08/14/19 06:30 08/16/19 23:59 Hydralazine HCl (Apresoline) 25 mg Q4H PRN ORAL bp over 160 syst 08/11/19 23:45 09/09/19 11:44 Insulin Aspart (NovoLOG) BEFORE MEALS AND HS SUBQ 08/12/19 06:30 09/09/19 11:29 08/16/19 06:53 Insulin Aspart (NovoLOG) 15 units NOVOTIAC SUBQ 08/12/19 11:50 09/09/19 11:49 08/16/19 06:55 Insulin Detemir (Levemir) 35 units Q12HR SUBQ 08/13/19 21:00 09/12/19 20:59 08/15/19 12:24 Latanoprost (Xalatan) 1 drop BEDTIME RIGHT EYE 08/13/19 21:00 09/12/19 20:59 08/15/19 22:09 Meropenem 1 gm/ Sodium Chloride 55 ml @ 110 mls/hr Q12HR@1100,2300 IVPB 08/13/19 01:00 08/18/19 00:59 08/15/19 23:40 Multivitamins Therapeutic (Therapeutic Multivitamin) 1 ea BID ORAL 08/12/19 18:46 09/11/19 18:45 08/15/19 18:24 Quetiapine Fumarate (SEROquel) 50 mg Q12HR ORAL 08/12/19 09:00 09/11/19 08:59 08/15/19 21:43 Sodium Chloride 1,000 ml @ 100 mls/hr Q10H IV 08/12/19 12:15 09/11/19 12:14 08/14/19 23:47 Tamsulosin HCl (Flomax) 0.4 mg BEDTIME ORAL 08/12/19 21:00 09/09/19 20:59 08/15/19 21:42 Binh Borges MD Aug 16, 2019 07:03
--- NOTE | 2019-08-16 07:25 | NUR ---
NURSE NOTES: Report received from PACO Venegas. Pt. AOx3. In RA Denies SOB. IV fluid running at 100ml/hr, site intact. Bed on lowest position, side rails upx2, brakes engaged, alarm on. Call light within easy reach.
--- NOTE | 2019-08-16 07:25 | NUR ---
HAND-OFF: Report given to PACO Salgado. Plan of care endorsed.
[2019-08-16 07:43] LABS: HEMATOCRIT 23.2 % (42.0-52.0); HEMOGLOBIN 7.4 G/DL (14.2-18.0); MEAN CORPUSCULAR VOLUME 85 FL (80-99); PLATELET COUNT 290 K/UL (150-450); RED BLOOD COUNT 2.73 M/UL (4.70-6.10); RED CELL DISTRIBUTION WIDTH 14.8 % (11.6-14.8); WHITE BLOOD COUNT 6.7 K/UL (4.8-10.8)
[2019-08-16 07:59] LABS: ALANINE AMINOTRANSFERASE 74 U/L (12-78); ALBUMIN 1.8 G/DL (3.4-5.0); ALBUMIN/GLOBULIN RATIO 0.3 (1.0-2.7); ALKALINE PHOSPHATASE 155 U/L (46-116); ANION GAP 11 mmol/L (5-15); ASPARTATE AMINO TRANSFERASE 70 U/L (15-37); BILIRUBIN,TOTAL 0.5 MG/DL (0.2-1.0); BLOOD UREA NITROGEN 46 mg/dL (7-18); CALCIUM 8.6 MG/DL (8.5-10.1); CARBON DIOXIDE 21 MMOL/L (21-32); CHLORIDE 104 MMOL/L (98-107); CREATININE 3.1 MG/DL (0.55-1.30); PHOSPHORUS 4.3 MG/DL (2.5-4.9); POTASSIUM 4.7 MMOL/L (3.5-5.1); SODIUM 136 MMOL/L (136-145)
[2019-08-16 08:00] VITALS: BP 153/79
[2019-08-16] MEDS: Heparin 5000 units/ml inj SUBQ SCH ×2 (09:00→22:22)
[2019-08-16] MEDS ORDERED: Levemir Flexpen SUBQ SCH (09:00)
[2019-08-16] MEDS: Multivitamin w/Minerals tab ORAL SCH ×2 (09:50→18:37)
[2019-08-16] MEDS: Docusate 100mg cap ORAL SCH ×2 (09:50→18:37)
[2019-08-16] MEDS: Aspirin EC 81mg tab ORAL SCH (09:51)
[2019-08-16] MEDS: Latanoprost 0.005% Opth 2.5ml Soln RIGHT EYE SCH (09:51)
[2019-08-16] MEDS: Cosopt Opth Soln 10 mL Btl RIGHT EYE SCH ×2 (09:51→18:39)
--- NOTE | 2019-08-16 10:17 | Nephrology Progress Note ---
Assessment/Plan Problem List: (1) Renal failure (ARF), acute on chronic (2) Diabetic nephropathy (3) Cellulitis of lower extremity Assessment Acute on chronic renal failure- Diabetic Nephropathy DM OOC Anemia Electrolyte imbalance HTN Plan today's labs reviewed Cr lower previously Refuses ch- bladder scan: Zero Hydrate Keep BP and BS in check avoid nephrotoxics monitor renal parameters 2D echo Left ventricular ejection fraction is estimated to be 55%. COOPER kidney unremarkable Urine studies NS and or Albumin bolus Subjective ROS Limited/Unobtainable: No Constitutional: Reports: malaise Objective Objective Last 24 Hour Vital Signs Date Time Temp Pulse Resp B/P (MAP) Pulse Ox O2 Delivery O2 Flow Rate FiO2 08/16/19 08:00 97.2 77 18 153/79 (103) 93 08/16/19 04:00 78 08/16/19 00:00 84 08/15/19 21:00 Room Air 08/15/19 20:00 98.4 79 21 160/87 (111) 91 08/15/19 20:00 79 08/15/19 15:56 77 08/15/19 12:00 98.0 73 22 140/76 (97) 91 08/15/19 11:42 76 Intake and Output 08/15/19 08/16/19 19:00 07:00 Intake Total 500 ml Output Total 2000 ml 1800 ml Balance -1500 ml -1800 ml Intake Oral 500 ml Output Urine Total 2000 ml 1800 ml # Bowel Movements 1 1 Laboratory Tests 08/15/19 10:50: White Blood Count 7.6, Red Blood Count 3.26L, Hemoglobin 8.8L, Hematocrit 27.6L , Mean Corpuscular Volume 85, Mean Corpuscular Hemoglobin 27.1, Mean Corpuscular Hemoglobin Concent 32.0, Red Cell Distribution Width 14.9H, Platelet Count 278, Mean Platelet Volume 5.8L, Neutrophils (%) (Auto) 76.3H, Lymphocytes (%) (Auto) 11.6L, Monocytes (%) (Auto) 8.9, Eosinophils (%) (Auto) 2.6, Basophils (%) (Auto) 0.6 08/15/19 11:00: Sodium Level 135L, Potassium Level 4.4, Chloride Level 104, Carbon Dioxide Level 21, Anion Gap 10, Blood Urea Nitrogen 51H, Creatinine 3.9H, Estimat Glomerular Filtration Rate 16.4, Glucose Level 84#, Calcium Level 8.7, Phosphorus Level 4.3, Magnesium Level 2.1, Total Bilirubin 0.5, Aspartate Amino Transf (AST/SGOT) 83H, Alanine Aminotransferase (ALT/SGPT) 73, Alkaline Phosphatase 160H, C-Reactive Protein, Quantitative 21.9H, Pro-B-Type Natriuretic Peptide 5111H, Total Protein 7.0, Albumin 1.8L, Globulin 5.2, Albumin/Globulin Ratio 0.3L 08/16/19 00:00: White Blood Count 6.7, Red Blood Count 2.73L, Hemoglobin 7.4L, Hematocrit 23.2L , Mean Corpuscular Volume 85, Mean Corpuscular Hemoglobin 27.1, Mean Corpuscular Hemoglobin Concent 32.0, Red Cell Distribution Width 14.8, Platelet Count 290, Mean Platelet Volume 5.5L, Neutrophils (%) (Auto) , Lymphocytes (%) ( Auto) , Monocytes (%) (Auto) , Eosinophils (%) (Auto) , Basophils (%) (Auto) , Sodium Level 136, Potassium Level 4.7, Chloride Level 104, Carbon Dioxide Level 21, Anion Gap 11, Blood Urea Nitrogen 46H, Creatinine 3.1H, Estimat Glomerular Filtration Rate 21.4, Glucose Level 154H, Calcium Level 8.6, Phosphorus Level 4.3, Magnesium Level 1.7L, Total Bilirubin 0.5, Aspartate Amino Transf (AST/SGOT ) 70H, Alanine Aminotransferase (ALT/SGPT) 74, Alkaline Phosphatase 155H, C- Reactive Protein, Quantitative 18.2H, Pro-B-Type Natriuretic Peptide 4406H, Total Protein 7.1, Albumin 1.8L, Globulin 5.3, Albumin/Globulin Ratio 0.3L, Neutrophils % (Manual) [Pending], Lymphocytes % (Manual) [Pending], Platelet Estimate [Pending], Platelet Morphology [Pending] Height (Feet): 6 Height (Inches): 1.00 Weight (Pounds): 233 General Appearance: no apparent distress Cardiovascular: normal rate Respiratory/Chest: lungs clear Abdomen: soft Objective no change Ernesto Frost MD Aug 16, 2019 10:17
[2019-08-16] MEDS: Meropenem 1 GM in NS 55 ML IVPB SCH (11:15)
[2019-08-16 12:00] VITALS: BP 140/80
--- NOTE | 2019-08-16 13:03 | NUR ---
NURSE NOTES: Per Cardiology, stress test is negative. Okay to transfer to med surg.
--- NOTE | 2019-08-16 13:36 | Surgery Progress Note ---
Surgery Progress Note Subjective Additional Comments No acute events Objective Last 24 Hour Vital Signs Date Time Temp Pulse Resp B/P (MAP) Pulse Ox O2 Delivery O2 Flow Rate FiO2 08/16/19 12:00 72 08/16/19 09:00 Room Air 08/16/19 08:00 97.2 77 18 153/79 (103) 93 08/16/19 08:00 79 08/16/19 04:00 78 08/16/19 00:00 84 08/15/19 21:00 Room Air 08/15/19 20:00 98.4 79 21 160/87 (111) 91 08/15/19 20:00 79 08/15/19 15:56 77 I&O Intake and Output 08/15/19 08/16/19 18:59 06:59 Intake Total 500 ml Output Total 2000 ml 1800 ml Balance -1500 ml -1800 ml Intake Oral 500 ml Output Urine Total 2000 ml 1800 ml # Bowel Movements 1 1 Dressing: dry Wound: clean Cardiovascular: RSR Respiratory: clear Abdomen: soft, non-tender, present bowel sounds Extremities: edema, no cyanosis Laboratory Tests Test 08/16/19 00:00 White Blood Count 6.7 K/UL (4.8-10.8) Red Blood Count 2.73 M/UL (4.70-6.10) L Hemoglobin 7.4 G/DL (14.2-18.0) L Hematocrit 23.2 % (42.0-52.0) L Mean Corpuscular Volume 85 FL (80-99) Mean Corpuscular Hemoglobin 27.1 PG (27.0-31.0) Mean Corpuscular Hemoglobin Concent 32.0 G/DL (32.0-36.0) Red Cell Distribution Width 14.8 % (11.6-14.8) Platelet Count 290 K/UL (150-450) Mean Platelet Volume 5.5 FL (6.5-10.1) L Neutrophils (%) (Auto) % (45.0-75.0) Lymphocytes (%) (Auto) % (20.0-45.0) Monocytes (%) (Auto) % (1.0-10.0) Eosinophils (%) (Auto) % (0.0-3.0) Basophils (%) (Auto) % (0.0-2.0) Differential Total Cells Counted 100 Neutrophils % (Manual) 71 % (45-75) Lymphocytes % (Manual) 16 % (20-45) L Monocytes % (Manual) 9 % (1-10) Eosinophils % (Manual) 3 % (0-3) Basophils % (Manual) 0 % (0-2) Band Neutrophils 1 % (0-8) Platelet Estimate Adequate Platelet Morphology Normal Hypochromasia 1+ Anisocytosis 1+ Sodium Level 136 MMOL/L (136-145) Potassium Level 4.7 MMOL/L (3.5-5.1) Chloride Level 104 MMOL/L (98-107) Carbon Dioxide Level 21 MMOL/L (21-32) Anion Gap 11 mmol/L (5-15) Blood Urea Nitrogen 46 mg/dL (7-18) H Creatinine 3.1 MG/DL (0.55-1.30) H Estimat Glomerular Filtration Rate 21.4 mL/min (>60) Glucose Level 154 MG/DL (74-106) H Calcium Level 8.6 MG/DL (8.5-10.1) Phosphorus Level 4.3 MG/DL (2.5-4.9) Magnesium Level 1.7 MG/DL (1.8-2.4) L Total Bilirubin 0.5 MG/DL (0.2-1.0) Aspartate Amino Transf (AST/SGOT) 70 U/L (15-37) H Alanine Aminotransferase (ALT/SGPT) 74 U/L (12-78) Alkaline Phosphatase 155 U/L (46-116) H C-Reactive Protein, Quantitative 18.2 mg/dL (0.00-0.90) H Pro-B-Type Natriuretic Peptide 4406 pg/mL (0-125) H Total Protein 7.1 G/DL (6.4-8.2) Albumin 1.8 G/DL (3.4-5.0) L Globulin 5.3 g/dL Albumin/Globulin Ratio 0.3 (1.0-2.7) L Plan Problems: (1) Osteomyelitis of ankle or foot, left, acute Assessment & Plan: Left Foot plain films FINDINGS: Bones joints: No acute fracture. No dislocation. Surgical absence of the fifth phalanges and distal half of the fifth metatarsal bone. Marked deformity in the mid foot and base of the first metatarsal bone likely posttraumatic post surgical change. Soft tissues: Soft tissue swelling about the plantar aspect of the foot. No radiopaque foreign body. IMPRESSION: 1. Marked deformity in the mid foot likely postsurgical posttraumatic change. 2. No gross acute bony abnormality. 3. Status post resection of the fifth phalanges as described Extensive destruction of the midfoot likely on the basis of neuropathic disease (Charcot foot). Suggest correlation with plain x-ray. The presence of superimposed osteomyelitis involving the area of the midfoot, anterior hindfoot and posterior forefoot is not excludable. Advanced Charcot foot with superimposed degenerative arthrosis and deformity. Prominent plantar surface ulceration without compelling evidence for acute osteomyelitis involving the forefoot, midfoot or hindfoot. 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 (2) Foot ulcer due to secondary DM (3) Cellulitis of lower extremity Assessment & Plan: This is a 48-year-old male with known history of prior infections and surgical mention of his lower extremity Charcot's foot who is been recovering in a nursing facility until recently noted to have more edema cellulitis and drainage. Leukocytosis, HD stable, renal insufficiency, dehydration. Admitted for further care and management Will discuss with podiatry potential necessity for further surgical intervention. no plans at this time IV antibiotics as per infectious disease Podiatry consultation appreciated Trend labs MRI of right and left lower extremity noted We will continue with local wound care and antibiotics. Thank you for allowing me to participate in patient's care will continue to follow with recognitions Melquiades Rush Aug 16, 2019 13:35
--- NOTE | 2019-08-16 14:33 | Infectious Diseases Prog Note ---
Assessment/Plan Problems: (1) Acute on chronic osteomyelitis Assessment & Plan: with bony destruction on MRI and charcot joint related bony changes , can't rule out underlying osteomyelitis . will treat him with meropenem for 6 weeks to cover osteomyelitis of the feet . needs close follow up with [facility] for monitoring of his foot wound . stop daptomycin . EOT 08/30 PLEASE MONITOR WEEKLY LABS WITH CBC AND CMP AND ESR WHILE ON ANTIBIOTICS (2) Renal failure (ARF), acute on chronic Assessment & Plan: may need HD , since not much UOP , avoid nephrotoxics , continue hydration, close monitoring of renal function, renal is following (3) Poorly controlled diabetes mellitus Assessment & Plan: recommend tight glycemic control to keep blood glucose between 100-140 (4) Diabetic foot infection Assessment & Plan: with ESBL producing Klebsiella Pneumonia and citrobacter diversus , already on wide spectrum antibiotics , keep leg elevated while in bed, with tight glycemic control, local wound dressings as per [facility] of [facility] sight impaired (5) Sepsis Assessment & Plan: with Citrobacter diversus , suspect source is his left foot chronic wound with infection , continue meropenem for now to cover for ESBL producing Klebsiella pneumoniae . may need surgical debridement of the left foot for source control and possible wound VAC, [facility] impaired is following . will treat him with meropenem for 6 weeks for osteomyelitis of the feet AND THIS WILL COVER HIS BACTEREMIA TOO . Subjective Constitutional: Reports: no symptoms HEENT: Reports: no symptoms Respiratory: Reports: no symptoms Breasts: Reports: no symptoms Cardiovascular: Reports: no symptoms Gastrointestinal/Abdominal: Reports: no symptoms Genitourinary: Reports: no symptoms Neurologic: Reports: no symptoms Psychiatric: Reports: no symptoms Skin: Reports: no symptoms Endocrine: Reports: no symptoms Hematologic: Reports: no symptoms Musculoskeletal: Reports: no symptoms Allergies: Coded Allergies: METFORMIN (Verified Allergy, Unknown, 10/09/18) Vomiting Objective Vital Signs Last 24 Hour Vital Signs Date Time Temp Pulse Resp B/P (MAP) Pulse Ox O2 Delivery O2 Flow Rate FiO2 08/16/19 12:00 72 08/16/19 09:00 Room Air 08/16/19 08:00 97.2 77 18 153/79 (103) 93 08/16/19 08:00 79 08/16/19 04:00 78 08/16/19 00:00 84 08/15/19 21:00 Room Air 08/15/19 20:00 98.4 79 21 160/87 (111) 91 08/15/19 20:00 79 08/15/19 15:56 77 Height (Feet): 6 Height (Inches): 1.00 Weight (Pounds): 233 General Appearance: WD/WN, no acute distress HEENT: normocephalic, atraumatic, anicteric, mucous membranes moist, PERRL Respiratory/Chest: chest wall non-tender, lungs clear, normal breath sounds, no respiratory distress, no accessory muscle use Cardiovascular: normal peripheral pulses, normal rate, regular rhythm, no gallop/murmur, no JVD Abdomen: normal bowel sounds, soft, non tender, no organomegaly, non distended , no mass, no scars Extremities: no cyanosis, no clubbing Skin: no rash, no lesions, ulcers Neurologic/Psychiatric: alert, responsive Lymphatic: no neck adenopathy, no groin adenopathy Musculoskeletal: normal muscle bulk, no effusion Microbiology Date/Time Source Procedure Growth Status 08/13/19 14:35 Blood Blood Culture - Preliminary NO GROWTH AFTER 48 HOURS Resulted Laboratory Tests Test 08/16/19 00:00 White Blood Count 6.7 K/UL (4.8-10.8) Red Blood Count 2.73 M/UL (4.70-6.10) L Hemoglobin 7.4 G/DL (14.2-18.0) L Hematocrit 23.2 % (42.0-52.0) L Mean Corpuscular Volume 85 FL (80-99) Mean Corpuscular Hemoglobin 27.1 PG (27.0-31.0) Mean Corpuscular Hemoglobin Concent 32.0 G/DL (32.0-36.0) Red Cell Distribution Width 14.8 % (11.6-14.8) Platelet Count 290 K/UL (150-450) Mean Platelet Volume 5.5 FL (6.5-10.1) L Neutrophils (%) (Auto) % (45.0-75.0) Lymphocytes (%) (Auto) % (20.0-45.0) Monocytes (%) (Auto) % (1.0-10.0) Eosinophils (%) (Auto) % (0.0-3.0) Basophils (%) (Auto) % (0.0-2.0) Differential Total Cells Counted 100 Neutrophils % (Manual) 71 % (45-75) Lymphocytes % (Manual) 16 % (20-45) L Monocytes % (Manual) 9 % (1-10) Eosinophils % (Manual) 3 % (0-3) Basophils % (Manual) 0 % (0-2) Band Neutrophils 1 % (0-8) Platelet Estimate Adequate Platelet Morphology Normal Hypochromasia 1+ Anisocytosis 1+ Sodium Level 136 MMOL/L (136-145) Potassium Level 4.7 MMOL/L (3.5-5.1) Chloride Level 104 MMOL/L (98-107) Carbon Dioxide Level 21 MMOL/L (21-32) Anion Gap 11 mmol/L (5-15) Blood Urea Nitrogen 46 mg/dL (7-18) H Creatinine 3.1 MG/DL (0.55-1.30) H Estimat Glomerular Filtration Rate 21.4 mL/min (>60) Glucose Level 154 MG/DL (74-106) H Calcium Level 8.6 MG/DL (8.5-10.1) Phosphorus Level 4.3 MG/DL (2.5-4.9) Magnesium Level 1.7 MG/DL (1.8-2.4) L Total Bilirubin 0.5 MG/DL (0.2-1.0) Aspartate Amino Transf (AST/SGOT) 70 U/L (15-37) H Alanine Aminotransferase (ALT/SGPT) 74 U/L (12-78) Alkaline Phosphatase 155 U/L (46-116) H C-Reactive Protein, Quantitative 18.2 mg/dL (0.00-0.90) H Pro-B-Type Natriuretic Peptide 4406 pg/mL (0-125) H Total Protein 7.1 G/DL (6.4-8.2) Albumin 1.8 G/DL (3.4-5.0) L Globulin 5.3 g/dL Albumin/Globulin Ratio 0.3 (1.0-2.7) L Current Medications Medications (Trade) Dose Ordered Sig/Aylin Route PRN Reason Start Time Stop Time Status Last Admin Dose Admin Acetaminophen (Tylenol) 650 mg Q4H PRN ORAL Mild Pain/Temp > 100.5 08/12/19 00:15 09/09/19 08:14 08/13/19 17:42 Aspirin (Ecotrin) 81 mg DAILY ORAL 08/12/19 19:30 09/11/19 19:29 08/16/19 09:51 Atorvastatin Calcium (Lipitor) 40 mg BEDTIME ORAL 08/12/19 21:00 09/09/19 20:59 08/15/19 21:42 Bisacodyl (Dulcolax) 10 mg DAILY PRN RECTAL Constipation 08/11/19 23:00 09/10/19 22:59 Chlorhexidine Gluconate (Ariadna-Hex 2%) 1 applic DAILY@2000 TOPIC 08/13/19 20:00 09/12/19 19:59 08/14/19 20:03 Daptomycin 970 mg/ Sodium Chloride 55 ml @ 100 mls/hr Q48H IV 08/15/19 21:00 08/22/19 20:59 08/15/19 22:09 Dextrose (Dextrose 50%) 25 ml Q30M PRN IV Hypoglycemia 08/11/19 23:15 09/09/19 07:14 Dextrose (Dextrose 50%) 50 ml Q30M PRN IV Hypoglycemia 08/11/19 23:15 09/09/19 07:14 Docusate Sodium (Colace) 100 mg TWICE A DAY ORAL 08/12/19 18:45 09/11/19 18:44 08/16/19 09:50 Dorzolamide/ Timolol (Cosopt) 1 drop TWICE A DAY RIGHT EYE 08/14/19 09:00 09/13/19 08:59 08/16/19 09:51 Escitalopram Oxalate (Lexapro) 10 mg DAILY ORAL 08/12/19 09:00 09/09/19 08:59 08/16/19 09:50 Famotidine (Pepcid) 20 mg DAILY@0630 ORAL 08/12/19 06:30 09/10/19 06:29 08/16/19 06:37 Fish Oil (Fish Oil) 1,000 mg BID ORAL 08/12/19 18:45 09/11/19 18:44 08/16/19 09:50 Gabapentin (Neurontin) 300 mg BID ORAL 08/12/19 18:46 09/11/19 18:45 08/16/19 09:50 Gabapentin (Neurontin) 600 mg BEDTIME ORAL 08/12/19 21:00 09/09/19 20:59 08/15/19 21:43 Heparin Sodium (Porcine) (Heparin 5000 units/ml) 5,000 units EVERY 12 HOURS SUBQ 08/12/19 09:00 09/09/19 08:59 08/15/19 21:48 Heparin Sodium/ Sodium Chloride (Heparin 1000 units/500ml Premix) 1,000 unit ONCE PRN IV PICC PLACEMENT 08/14/19 06:30 08/16/19 23:59 Hydralazine HCl (Apresoline) 25 mg Q4H PRN ORAL bp over 160 syst 08/11/19 23:45 09/09/19 11:44 Insulin Aspart (NovoLOG) BEFORE MEALS AND HS SUBQ 08/12/19 06:30 09/09/19 11:29 08/16/19 12:37 Insulin Aspart (NovoLOG) 15 units NOVOTIAC SUBQ 08/12/19 11:50 09/09/19 11:49 08/16/19 12:38 Insulin Detemir (Levemir) 30 units Q12HR SUBQ 08/16/19 09:00 09/12/19 20:59 08/16/19 11:04 Latanoprost (Xalatan) 1 drop BEDTIME RIGHT EYE 08/13/19 21:00 09/12/19 20:59 08/16/19 09:51 Meropenem 1 gm/ Sodium Chloride 55 ml @ 110 mls/hr Q12HR@1100,2300 IVPB 08/13/19 01:00 08/18/19 00:59 08/16/19 11:15 Multivitamins Therapeutic (Therapeutic Multivitamin) 1 ea BID ORAL 08/12/19 18:46 09/11/19 18:45 08/16/19 09:50 Quetiapine Fumarate (SEROquel) 50 mg Q12HR ORAL 08/12/19 09:00 09/11/19 08:59 08/16/19 09:50 Sodium Chloride 1,000 ml @ 50 mls/hr Q20H IV 08/16/19 10:30 09/11/19 10:29 08/16/19 11:15 Tamsulosin HCl (Flomax) 0.4 mg BEDTIME ORAL 08/12/19 21:00 09/09/19 20:59 08/15/19 21:42 Kwasi Martinez M.D. Aug 16, 2019 14:33
[2019-08-16 16:00] VITALS: BP 141/87
--- NOTE | 2019-08-16 16:50 | Internal Med Progress Note ---
Subjective Date of Service: Aug 16, 2019 Physician Name Adriano Carney Attending Physician Dexter Haas MD Current Medications Medications (Trade) Dose Ordered Sig/Aylin Route PRN Reason Start Time Stop Time Status Last Admin Dose Admin Acetaminophen (Tylenol) 650 mg Q4H PRN ORAL Mild Pain/Temp > 100.5 08/12/19 00:15 09/09/19 08:14 08/13/19 17:42 Aspirin (Ecotrin) 81 mg DAILY ORAL 08/12/19 19:30 09/11/19 19:29 08/16/19 09:51 Atorvastatin Calcium (Lipitor) 40 mg BEDTIME ORAL 08/12/19 21:00 09/09/19 20:59 08/15/19 21:42 Bisacodyl (Dulcolax) 10 mg DAILY PRN RECTAL Constipation 08/11/19 23:00 09/10/19 22:59 Chlorhexidine Gluconate (Ariadna-Hex 2%) 1 applic DAILY@2000 TOPIC 08/13/19 20:00 09/12/19 19:59 08/14/19 20:03 Dextrose (Dextrose 50%) 25 ml Q30M PRN IV Hypoglycemia 08/11/19 23:15 09/09/19 07:14 Dextrose (Dextrose 50%) 50 ml Q30M PRN IV Hypoglycemia 08/11/19 23:15 09/09/19 07:14 Docusate Sodium (Colace) 100 mg TWICE A DAY ORAL 08/12/19 18:45 09/11/19 18:44 08/16/19 09:50 Dorzolamide/ Timolol (Cosopt) 1 drop TWICE A DAY RIGHT EYE 08/14/19 09:00 09/13/19 08:59 08/16/19 09:51 Escitalopram Oxalate (Lexapro) 10 mg DAILY ORAL 08/12/19 09:00 09/09/19 08:59 08/16/19 09:50 Famotidine (Pepcid) 20 mg DAILY@0630 ORAL 08/12/19 06:30 09/10/19 06:29 08/16/19 06:37 Fish Oil (Fish Oil) 1,000 mg BID ORAL 08/12/19 18:45 09/11/19 18:44 08/16/19 09:50 Gabapentin (Neurontin) 300 mg BID ORAL 08/12/19 18:46 09/11/19 18:45 08/16/19 09:50 Gabapentin (Neurontin) 600 mg BEDTIME ORAL 08/12/19 21:00 09/09/19 20:59 08/15/19 21:43 Heparin Sodium (Porcine) (Heparin 5000 units/ml) 5,000 units EVERY 12 HOURS SUBQ 08/12/19 09:00 09/09/19 08:59 08/15/19 21:48 Heparin Sodium/ Sodium Chloride (Heparin 1000 units/500ml Premix) 1,000 unit ONCE PRN IV PICC PLACEMENT 08/14/19 06:30 08/16/19 23:59 Hydralazine HCl (Apresoline) 25 mg Q4H PRN ORAL bp over 160 syst 08/11/19 23:45 09/09/19 11:44 Insulin Aspart (NovoLOG) BEFORE MEALS AND HS SUBQ 08/12/19 06:30 09/09/19 11:29 08/16/19 12:37 Insulin Aspart (NovoLOG) 15 units NOVOTIAC SUBQ 08/12/19 11:50 09/09/19 11:49 08/16/19 12:38 Insulin Detemir (Levemir) 30 units Q12HR SUBQ 08/16/19 09:00 09/12/19 20:59 08/16/19 11:04 Latanoprost (Xalatan) 1 drop BEDTIME RIGHT EYE 08/13/19 21:00 09/12/19 20:59 08/16/19 09:51 Meropenem 1 gm/ Sodium Chloride 55 ml @ 110 mls/hr Q12HR@1100,2300 IVPB 08/13/19 01:00 08/18/19 00:59 08/16/19 11:15 Multivitamins Therapeutic (Therapeutic Multivitamin) 1 ea BID ORAL 08/12/19 18:46 09/11/19 18:45 08/16/19 09:50 Quetiapine Fumarate (SEROquel) 50 mg Q12HR ORAL 08/12/19 09:00 09/11/19 08:59 08/16/19 09:50 Sodium Chloride 1,000 ml @ 50 mls/hr Q20H IV 08/16/19 10:30 09/11/19 10:29 08/16/19 11:15 Tamsulosin HCl (Flomax) 0.4 mg BEDTIME ORAL 08/12/19 21:00 09/09/19 20:59 08/15/19 21:42 Allergies: Coded Allergies: METFORMIN (Verified Allergy, Unknown, 10/09/18) Vomiting ROS Limited/Unobtainable: No Constitutional: Reports: no symptoms HEENT: Reports: no symptoms Cardiovascular: Reports: no symptoms Respiratory: Reports: no symptoms Gastrointestinal/Abdominal: Reports: no symptoms Genitourinary: Reports: no symptoms Neurologic/Psychiatric: Reports: no symptoms Subjective 48 YO M Adm with right foot ulcer. Now sepsis. Cover for Int Luis-Dr Haas Objective Last Vital Signs Date Time Temp Pulse Resp B/P (MAP) Pulse Ox O2 Delivery O2 Flow Rate FiO2 08/16/19 12:00 72 08/16/19 12:00 97.2 18 140/80 (100) 93 08/16/19 09:00 Room Air General Appearance: WD/WN, no apparent distress, alert EENT: PERRL/EOMI, normal ENT inspection Neck: non-tender, normal alignment, supple, normal inspection Cardiovascular: normal peripheral pulses, normal rate, regular rhythm, no gallop/murmur, no JVD Respiratory/Chest: chest wall non-tender, lungs clear, normal breath sounds, no respiratory distress, no accessory muscle use Abdomen: normal bowel sounds, non tender, soft, no organomegaly, no mass Extremities: normal range of motion, non-tender, other - right plantar foot ulcer 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, no motor/sensory deficits Skin: normal pigmentation, warm/dry Laboratory Tests Test 08/16/19 00:00 White Blood Count 6.7 K/UL (4.8-10.8) Red Blood Count 2.73 M/UL (4.70-6.10) L Hemoglobin 7.4 G/DL (14.2-18.0) L Hematocrit 23.2 % (42.0-52.0) L Mean Corpuscular Volume 85 FL (80-99) Mean Corpuscular Hemoglobin 27.1 PG (27.0-31.0) Mean Corpuscular Hemoglobin Concent 32.0 G/DL (32.0-36.0) Red Cell Distribution Width 14.8 % (11.6-14.8) Platelet Count 290 K/UL (150-450) Mean Platelet Volume 5.5 FL (6.5-10.1) L Neutrophils (%) (Auto) % (45.0-75.0) Lymphocytes (%) (Auto) % (20.0-45.0) Monocytes (%) (Auto) % (1.0-10.0) Eosinophils (%) (Auto) % (0.0-3.0) Basophils (%) (Auto) % (0.0-2.0) Differential Total Cells Counted 100 Neutrophils % (Manual) 71 % (45-75) Lymphocytes % (Manual) 16 % (20-45) L Monocytes % (Manual) 9 % (1-10) Eosinophils % (Manual) 3 % (0-3) Basophils % (Manual) 0 % (0-2) Band Neutrophils 1 % (0-8) Platelet Estimate Adequate Platelet Morphology Normal Hypochromasia 1+ Anisocytosis 1+ Sodium Level 136 MMOL/L (136-145) Potassium Level 4.7 MMOL/L (3.5-5.1) Chloride Level 104 MMOL/L (98-107) Carbon Dioxide Level 21 MMOL/L (21-32) Anion Gap 11 mmol/L (5-15) Blood Urea Nitrogen 46 mg/dL (7-18) H Creatinine 3.1 MG/DL (0.55-1.30) H Estimat Glomerular Filtration Rate 21.4 mL/min (>60) Glucose Level 154 MG/DL (74-106) H Calcium Level 8.6 MG/DL (8.5-10.1) Phosphorus Level 4.3 MG/DL (2.5-4.9) Magnesium Level 1.7 MG/DL (1.8-2.4) L Total Bilirubin 0.5 MG/DL (0.2-1.0) Aspartate Amino Transf (AST/SGOT) 70 U/L (15-37) H Alanine Aminotransferase (ALT/SGPT) 74 U/L (12-78) Alkaline Phosphatase 155 U/L (46-116) H C-Reactive Protein, Quantitative 18.2 mg/dL (0.00-0.90) H Pro-B-Type Natriuretic Peptide 4406 pg/mL (0-125) H Total Protein 7.1 G/DL (6.4-8.2) Albumin 1.8 G/DL (3.4-5.0) L Globulin 5.3 g/dL Albumin/Globulin Ratio 0.3 (1.0-2.7) L Intake and Output 08/15/19 08/16/19 18:59 06:59 Intake Total 500 ml Output Total 2000 ml 1800 ml Balance -1500 ml -1800 ml Intake Oral 500 ml Output Urine Total 2000 ml 1800 ml # Bowel Movements 1 1 Assessment/Plan Problem List: (1) Charcot foot due to diabetes mellitus (2) Sepsis Assessment & Plan: Citrobacter Diversus. Continue meropenem per ID (3) Foot ulcer due to secondary DM Assessment & Plan: See podiatry note. Culture=ESBL klebsiella and citrobacter. Continue meropenem per ID-Dr Martinez (4) Poorly controlled diabetes mellitus Assessment & Plan: See endocrinology note-Dr Borges (5) Renal failure (ARF), acute on chronic Assessment & Plan: Followed by nephrology-Dr Frost (6) Diabetic nephropathy (7) MDD (major depressive disorder), recurrent episode, moderate Status: progressing Adriano Carney MD Aug 16, 2019 16:50
--- NOTE | 2019-08-16 19:41 | NUR ---
HAND-OFF: Report given to PACO Venegas. Pt. in stable condition. Plan of care endorsed.
--- NOTE | 2019-08-16 19:42 | NUR ---
NURSE NOTES: Got report from Damian ANTONIO. Pt in stable condition. Continue to monitor.
[2019-08-16 20:00] VITALS: BP 134/80
--- NOTE | 2019-08-16 20:30 | NUR ---
HAND-OFF: Pt tranferred to Med-Surg 405-1 per order. Pt in stable condition. Report given to Vidhi ANTONIO. Endorsed plan of care.
--- NOTE | 2019-08-16 20:30 | NUR ---
NURSE NOTES: Pt transferred from tele. Received report from PACO Lloyd. AAO x 3, on room air. Pt is restless and uncooperative. PICC MAGALI with double lumens intact and patent, running NS 50cc/hr. Dressing on bilateral foot dry and intact. Condom cath intact and draining yellow urine. All belongs list reviewed. Bed locked, lowest position, alarm on, side rails up x 2, call light within reach. Will continue to monitor an provide care. Addendum: 08/17/19 at 0513 by FLACO DEL ANGEL RN RN NURSE NOTES: Pt refused hemodialysis cath insertion non tunneled.
[2019-08-16] MEDS ORDERED: HydrALAZINE 25mg tab ORAL PRN (21:30)
[2019-08-16] MEDS: Tamsulosin 0.4mg cap ORAL SCH (22:10)
[2019-08-16] MEDS: Atorvastatin 20mg tab ORAL SCH (22:10)
[2019-08-16] MEDS: Levemir Flexpen SUBQ SCH (22:21)
[2019-08-16] MEDS ORDERED: Meropenem 1 GM in NS 55 ML IVPB SCH (23:00)
[2019-08-17] MEDS: NovoLOG Insulin Flexpen SUBQ SCH ×7 (06:03→22:18)
--- NOTE | 2019-08-17 07:41 | NUR ---
HAND-OFF: Report given to PACO Sneed.
--- NOTE | 2019-08-17 08:10 | NUR ---
NURSE NOTES: received pt in high Moss's in bed, eating breakfast, no complaint of pain or discomfort. Pt receives IVF through PICC MAGALI, dressing dry and intact. Call light within easy reach, siderails up x2, bed locked at the lowest position possible. Will continue to monitor patient and follow up with the plan of care.
[2019-08-17] MEDS: Aspirin EC 81mg tab ORAL SCH (08:44)
[2019-08-17] MEDS: Multivitamin w/Minerals tab ORAL SCH ×2 (08:47→17:23)
[2019-08-17] MEDS: Docusate 100mg cap ORAL SCH ×2 (08:49→17:24)
[2019-08-17] MEDS: Levemir Flexpen SUBQ SCH ×2 (08:53→22:19)
[2019-08-17] MEDS: Heparin 5000 units/ml inj SUBQ SCH ×2 (08:54→22:16)
[2019-08-17] MEDS: Cosopt Opth Soln 10 mL Btl RIGHT EYE SCH ×2 (10:37→17:24)
[2019-08-17] MEDS: Meropenem 1 GM in NS 55 ML IVPB SCH ×2 (11:47→22:24)
--- NOTE | 2019-08-17 11:51 | Nephrology Progress Note ---
Assessment/Plan Problem List: (1) Renal failure (ARF), acute on chronic (2) Diabetic nephropathy (3) Cellulitis of lower extremity Assessment Acute on chronic renal failure- Diabetic Nephropathy DM OOC Anemia Electrolyte imbalance HTN Plan today's labs reviewed Cr lower previously Refuses ch- bladder scan: Zero Hydrate Keep BP and BS in check avoid nephrotoxics monitor renal parameters 2D echo Left ventricular ejection fraction is estimated to be 55%. COPOER kidney unremarkable Urine studies NS and or Albumin bolus Subjective ROS Limited/Unobtainable: No Constitutional: Reports: malaise Objective Objective Last 24 Hour Vital Signs Date Time Temp Pulse Resp B/P (MAP) Pulse Ox O2 Delivery O2 Flow Rate FiO2 08/17/19 09:00 Room Air 08/16/19 21:00 Room Air 08/16/19 20:00 70 08/16/19 20:00 98.1 75 18 134/80 (98) 95 08/16/19 16:00 97.4 73 18 141/87 (105) 96 08/16/19 16:00 68 08/16/19 12:00 72 08/16/19 12:00 97.2 73 18 140/80 (100) 93 Intake and Output 08/16/19 08/17/19 19:00 07:00 Intake Total 300 ml 455 ml Output Total 2000 ml 1100 ml Balance -1700 ml -645 ml Intake Oral 300 ml IV Total 455 ml Output Urine Total 2000 ml 1100 ml # Voids 1 # Bowel Movements 1 Height (Feet): 6 Height (Inches): 1.00 Weight (Pounds): 233 General Appearance: no apparent distress Objective no change Ernesto Frost MD Aug 17, 2019 11:51
[2019-08-17 12:00] VITALS: BP 150/86
--- NOTE | 2019-08-17 15:57 | Internal Med Progress Note ---
Subjective Date of Service: Aug 17, 2019 Physician Name Carney,Adriano Attending Physician Dexter Haas MD Current Medications Medications (Trade) Dose Ordered Sig/Aylin Route PRN Reason Start Time Stop Time Status Last Admin Dose Admin Acetaminophen (Tylenol) 650 mg Q4H PRN ORAL Mild Pain/Temp > 100.5 08/16/19 21:30 09/15/19 21:29 Aspirin (Ecotrin) 81 mg DAILY ORAL 08/17/19 09:00 09/11/19 19:29 08/17/19 08:44 Atorvastatin Calcium (Lipitor) 40 mg BEDTIME ORAL 08/16/19 22:00 09/15/19 21:59 08/16/19 22:10 Bisacodyl (Dulcolax) 10 mg DAILY PRN RECTAL Constipation 08/17/19 09:00 09/10/19 22:59 Chlorhexidine Gluconate (Ariadna-Hex 2%) 1 applic DAILY@2000 TOPIC 08/17/19 20:00 09/12/19 19:59 Dextrose (Dextrose 50%) 25 ml Q30M PRN IV Hypoglycemia 08/16/19 21:45 09/09/19 07:14 Dextrose (Dextrose 50%) 50 ml Q30M PRN IV Hypoglycemia 08/16/19 21:45 09/09/19 07:14 Docusate Sodium (Colace) 100 mg TWICE A DAY ORAL 08/17/19 09:00 09/11/19 18:44 Dorzolamide/ Timolol (Cosopt) 1 drop TWICE A DAY RIGHT EYE 08/17/19 09:00 09/13/19 08:59 08/17/19 10:37 Escitalopram Oxalate (Lexapro) 10 mg DAILY ORAL 08/17/19 09:00 09/09/19 08:59 08/17/19 08:46 Famotidine (Pepcid) 20 mg DAILY@0630 ORAL 08/17/19 06:30 09/10/19 06:29 08/17/19 06:01 Fish Oil (Fish Oil) 1,000 mg BID ORAL 08/17/19 09:00 09/11/19 18:44 08/17/19 08:46 Gabapentin (Neurontin) 300 mg BID ORAL 08/17/19 09:00 09/11/19 18:45 08/17/19 08:46 Gabapentin (Neurontin) 600 mg BEDTIME ORAL 08/16/19 22:00 09/15/19 21:59 08/16/19 22:10 Heparin Sodium (Porcine) (Heparin 5000 units/ml) 5,000 units EVERY 12 HOURS SUBQ 08/16/19 22:00 09/15/19 21:59 08/17/19 08:54 Heparin Sodium/ Sodium Chloride (Heparin 1000 units/500ml Premix) 1,000 unit ONCE ONCE IV 08/17/19 21:30 08/17/19 21:31 Hydralazine HCl (Apresoline) 25 mg Q4H PRN ORAL bp over 160 syst 08/16/19 21:30 09/09/19 21:29 Insulin Aspart (NovoLOG) BEFORE MEALS AND HS SUBQ 08/17/19 06:30 09/09/19 21:59 08/17/19 06:25 Insulin Aspart (NovoLOG) 15 units NOVOTIAC SUBQ 08/17/19 06:30 09/09/19 11:49 08/17/19 06:03 Insulin Detemir (Levemir) 30 units Q12HR SUBQ 08/16/19 22:00 09/15/19 21:59 08/17/19 08:53 Latanoprost (Xalatan) 1 drop BEDTIME RIGHT EYE 08/17/19 22:00 09/12/19 21:59 Meropenem 1 gm/ Sodium Chloride 55 ml @ 110 mls/hr Q12HR@1100,2300 IVPB 08/17/19 11:00 08/18/19 12:59 08/17/19 11:47 Multivitamins Therapeutic (Therapeutic Multivitamin) 1 ea BID ORAL 08/17/19 09:00 09/11/19 18:45 08/17/19 08:47 Quetiapine Fumarate (SEROquel) 50 mg Q12HR ORAL 08/16/19 22:00 09/15/19 21:59 08/17/19 08:44 Sodium Chloride 1,000 ml @ 50 mls/hr Q20H IV 08/16/19 21:30 09/11/19 10:29 08/16/19 22:15 Tamsulosin HCl (Flomax) 0.4 mg BEDTIME ORAL 08/16/19 22:00 09/15/19 21:59 08/16/19 22:10 Allergies: Coded Allergies: METFORMIN (Verified Allergy, Unknown, 10/09/18) Vomiting ROS Limited/Unobtainable: No Constitutional: Reports: no symptoms HEENT: Reports: no symptoms Cardiovascular: Reports: no symptoms Respiratory: Reports: no symptoms Gastrointestinal/Abdominal: Reports: no symptoms Genitourinary: Reports: no symptoms Neurologic/Psychiatric: Reports: no symptoms Subjective 48 YO M Adm with right foot ulcer. Now sepsis. Cover for Int Med-Dr Haas Objective Last Vital Signs Date Time Temp Pulse Resp B/P (MAP) Pulse Ox O2 Delivery O2 Flow Rate FiO2 08/17/19 12:00 98.8 72 18 150/86 (107) 94 08/17/19 09:00 Room Air Intake and Output 08/16/19 08/17/19 18:59 06:59 Intake Total 300 ml 455 ml Output Total 2000 ml 1100 ml Balance -1700 ml -645 ml Intake Oral 300 ml IV Total 455 ml Output Urine Total 2000 ml 1100 ml # Voids 1 # Bowel Movements 1 Objective General Appearance: WD/WN, no apparent distress, alert EENT: PERRL/EOMI, normal ENT inspection Neck: non-tender, normal alignment, supple, normal inspection Cardiovascular: normal peripheral pulses, normal rate, regular rhythm, no gallop/murmur, no JVD Respiratory/Chest: chest wall non-tender, lungs clear, normal breath sounds, no respiratory distress, no accessory muscle use Abdomen: normal bowel sounds, non tender, soft, no organomegaly, no mass Extremities: normal range of motion, non-tender, other - right plantar foot ulcer Neurologic: 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 Continue meropenem per ID (3) Foot ulcer due to secondary DM Assessment & Plan: See podiatry note. Culture=ESBL klebsiella and citrobacter. Continue meropenem per ID-Dr Martinez (4) Poorly controlled diabetes mellitus Assessment & Plan: See endocrinology note-Dr Borges (5) Renal failure (ARF), acute on chronic Assessment & Plan: Followed by nephrology-Dr Frost (6) Diabetic nephropathy (7) MDD (major depressive disorder), recurrent episode, moderate Carney,Adriano MD Aug 17, 2019 15:57
[2019-08-17 16:00] VITALS: BP 136/78
--- NOTE | 2019-08-17 16:06 | Surgery Progress Note ---
Surgery Progress Note Subjective Additional Comments no acute events Objective Last 24 Hour Vital Signs Date Time Temp Pulse Resp B/P (MAP) Pulse Ox O2 Delivery O2 Flow Rate FiO2 08/17/19 12:00 98.8 72 18 150/86 (107) 94 08/17/19 09:00 Room Air 08/16/19 21:00 Room Air 08/16/19 20:00 70 08/16/19 20:00 98.1 75 18 134/80 (98) 95 I&O Intake and Output 08/16/19 08/17/19 19:00 07:00 Intake Total 300 ml 455 ml Output Total 2000 ml 1100 ml Balance -1700 ml -645 ml Intake Oral 300 ml IV Total 455 ml Output Urine Total 2000 ml 1100 ml # Voids 1 # Bowel Movements 1 Dressing: dry Wound: clean Cardiovascular: RSR Respiratory: clear Abdomen: soft, flat Extremities: edema, no cyanosis Plan Problems: (1) Osteomyelitis of ankle or foot, left, acute Assessment & Plan: Left Foot plain films FINDINGS: Bones joints: No acute fracture. No dislocation. Surgical absence of the fifth phalanges and distal half of the fifth metatarsal bone. Marked deformity in the mid foot and base of the first metatarsal bone likely posttraumatic post surgical change. Soft tissues: Soft tissue swelling about the plantar aspect of the foot. No radiopaque foreign body. IMPRESSION: 1. Marked deformity in the mid foot likely postsurgical posttraumatic change. 2. No gross acute bony abnormality. 3. Status post resection of the fifth phalanges as described Extensive destruction of the midfoot likely on the basis of neuropathic disease (Charcot foot). Suggest correlation with plain x-ray. The presence of superimposed osteomyelitis involving the area of the midfoot, anterior hindfoot and posterior forefoot is not excludable. Advanced Charcot foot with superimposed degenerative arthrosis and deformity. Prominent plantar surface ulceration without compelling evidence for acute osteomyelitis involving the forefoot, midfoot or hindfoot. 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 (2) Foot ulcer due to secondary DM (3) Cellulitis of lower extremity Assessment & Plan: This is a 48-year-old male with known history of prior infections and surgical mention of his lower extremity Charcot's foot who is been recovering in a nursing facility until recently noted to have more edema cellulitis and drainage. Leukocytosis, HD stable, renal insufficiency, dehydration. Admitted for further care and management Will discuss with podiatry potential necessity for further surgical intervention. no plans at this time IV antibiotics as per infectious disease Podiatry consultation appreciated Trend labs MRI of right and left lower extremity noted We will continue with local wound care and antibiotics. Thank you for allowing me to participate in patient's care will continue to follow with recognitions Melquiades Rush Aug 17, 2019 16:06
--- NOTE | 2019-08-17 17:55 | General Progress Note ---
Assessment/Plan Problem List: (1) Foot ulcer due to secondary DM ICD Codes: E13.621 - Other specified diabetes mellitus with foot ulcer; L97.509 - Non-pressure chronic ulcer of other part of unspecified foot with unspecified severity SNOMED: 8748503, 666334621 (2) Diabetic nephropathy ICD Codes: E11.21 - Type 2 diabetes mellitus with diabetic nephropathy SNOMED: 11515034, 137806667 (3) Poorly controlled diabetes mellitus ICD Codes: E11.65 - Type 2 diabetes mellitus with hyperglycemia SNOMED: 56012069, 418698018 (4) MDD (major depressive disorder), recurrent episode, moderate ICD Codes: F33.1 - Major depressive disorder, recurrent, moderate SNOMED: 85744772, 215442448 Status: progressing Assessment/Plan: continue Levemir 30 units bid reduce Novolog to 6 units ac tid - hold if not eating continue NISS ac / hs Subjective Allergies: Coded Allergies: METFORMIN (Verified Allergy, Unknown, 10/09/18) Vomiting All Systems: reviewed and negative except above Subjective events noted fair glycemic control appetite is poor - mealtime Novolog is being held Item Value Date Time Bedside Blood Glucose 107 mg/dl 08/17/19 1650 Bedside Blood Glucose 85 mg/dl 08/17/19 1130 Bedside Blood Glucose 127 mg/dl H 08/17/19 0853 Bedside Blood Glucose 127 mg/dl H 08/17/19 0625 Bedside Blood Glucose 125 mg/dl H 08/16/19 2221 Objective Last 24 Hour Vital Signs Date Time Temp Pulse Resp B/P (MAP) Pulse Ox O2 Delivery O2 Flow Rate FiO2 08/17/19 16:00 98.2 65 18 136/78 (97) 97 08/17/19 12:00 98.8 72 18 150/86 (107) 94 08/17/19 09:00 Room Air 08/16/19 21:00 Room Air 08/16/19 20:00 70 08/16/19 20:00 98.1 75 18 134/80 (98) 95 Intake and Output 08/16/19 08/17/19 18:59 06:59 Intake Total 300 ml 455 ml Output Total 2000 ml 1100 ml Balance -1700 ml -645 ml Intake Oral 300 ml IV Total 455 ml Output Urine Total 2000 ml 1100 ml # Voids 1 # Bowel Movements 1 Height (Feet): 6 Height (Inches): 1.00 Weight (Pounds): 233 General Appearance: no apparent distress Neck: normal alignment Cardiovascular: regular rhythm Respiratory/Chest: lungs clear Abdomen: normal bowel sounds Objective Current Medications Medications (Trade) Dose Ordered Sig/Aylin Route PRN Reason Start Time Stop Time Status Last Admin Dose Admin Acetaminophen (Tylenol) 650 mg Q4H PRN ORAL Mild Pain/Temp > 100.5 08/16/19 21:30 09/15/19 21:29 Aspirin (Ecotrin) 81 mg DAILY ORAL 08/17/19 09:00 09/11/19 19:29 08/17/19 08:44 Atorvastatin Calcium (Lipitor) 40 mg BEDTIME ORAL 08/16/19 22:00 09/15/19 21:59 08/16/19 22:10 Bisacodyl (Dulcolax) 10 mg DAILY PRN RECTAL Constipation 08/17/19 09:00 09/10/19 22:59 Chlorhexidine Gluconate (Ariadna-Hex 2%) 1 applic DAILY@2000 TOPIC 08/17/19 20:00 09/12/19 19:59 Dextrose (Dextrose 50%) 25 ml Q30M PRN IV Hypoglycemia 08/16/19 21:45 09/09/19 07:14 Dextrose (Dextrose 50%) 50 ml Q30M PRN IV Hypoglycemia 08/16/19 21:45 09/09/19 07:14 Docusate Sodium (Colace) 100 mg TWICE A DAY ORAL 08/17/19 09:00 09/11/19 18:44 Dorzolamide/ Timolol (Cosopt) 1 drop TWICE A DAY RIGHT EYE 08/17/19 09:00 09/13/19 08:59 08/17/19 17:24 Escitalopram Oxalate (Lexapro) 10 mg DAILY ORAL 08/17/19 09:00 09/09/19 08:59 08/17/19 08:46 Famotidine (Pepcid) 20 mg DAILY@0630 ORAL 08/17/19 06:30 09/10/19 06:29 08/17/19 06:01 Fish Oil (Fish Oil) 1,000 mg BID ORAL 08/17/19 09:00 09/11/19 18:44 08/17/19 17:23 Gabapentin (Neurontin) 300 mg BID ORAL 08/17/19 09:00 09/11/19 18:45 08/17/19 17:24 Gabapentin (Neurontin) 600 mg BEDTIME ORAL 08/16/19 22:00 09/15/19 21:59 08/16/19 22:10 Heparin Sodium (Porcine) (Heparin 5000 units/ml) 5,000 units EVERY 12 HOURS SUBQ 08/16/19 22:00 09/15/19 21:59 08/17/19 08:54 Heparin Sodium/ Sodium Chloride (Heparin 1000 units/500ml Premix) 1,000 unit ONCE ONCE IV 08/17/19 21:30 08/17/19 21:31 Hydralazine HCl (Apresoline) 25 mg Q4H PRN ORAL bp over 160 syst 08/16/19 21:30 09/09/19 21:29 Insulin Aspart (NovoLOG) BEFORE MEALS AND HS SUBQ 08/17/19 06:30 09/09/19 21:59 08/17/19 06:25 Insulin Aspart (NovoLOG) 15 units NOVOTIAC SUBQ 08/17/19 06:30 09/09/19 11:49 08/17/19 06:03 Insulin Detemir (Levemir) 30 units Q12HR SUBQ 08/16/19 22:00 09/15/19 21:59 08/17/19 08:53 Latanoprost (Xalatan) 1 drop BEDTIME RIGHT EYE 08/17/19 22:00 09/12/19 21:59 Meropenem 1 gm/ Sodium Chloride 55 ml @ 110 mls/hr Q12HR@1100,2300 IVPB 08/17/19 11:00 08/18/19 12:59 08/17/19 11:47 Multivitamins Therapeutic (Therapeutic Multivitamin) 1 ea BID ORAL 08/17/19 09:00 09/11/19 18:45 08/17/19 17:23 Quetiapine Fumarate (SEROquel) 50 mg Q12HR ORAL 08/16/19 22:00 09/15/19 21:59 08/17/19 08:44 Sodium Chloride 1,000 ml @ 50 mls/hr Q20H IV 08/16/19 21:30 09/11/19 10:29 08/17/19 17:29 Tamsulosin HCl (Flomax) 0.4 mg BEDTIME ORAL 08/16/19 22:00 09/15/19 21:59 08/16/19 22:10 Binh Borges MD Aug 17, 2019 17:55
--- NOTE | 2019-08-17 19:16 | NUR ---
HAND-OFF: Report given to PACO Arias.
--- NOTE | 2019-08-17 19:30 | NUR ---
NURSE NOTES: Patient awake in bed, anxious but no complaints of pain at this time. With PICC on the left upper arm, NS running @ 50. Instructed to use call light. Bed in lowest, lock engaged and alarm on. Will continue to monitor.
[2019-08-17 20:00] VITALS: BP 132/67
--- NOTE | 2019-08-17 20:32 | Infectious Diseases Prog Note ---
Assessment/Plan Problems: (1) Acute on chronic osteomyelitis Assessment & Plan: with bony destruction on MRI and charcot joint related bony changes , can't rule out underlying osteomyelitis . will treat him with meropenem for 6 weeks to cover osteomyelitis of the feet . needs close follow up with roving hauler for monitoring of his foot wound . may need grafting in the future to close his left foot wound and to prevent recurrent infection . EOT 09/21/19 PLEASE MONITOR WEEKLY LABS WITH CBC AND CMP AND ESR WHILE ON ANTIBIOTICS (2) Renal failure (ARF), acute on chronic Assessment & Plan: may need HD , since not much UOP , avoid nephrotoxics , continue hydration, close monitoring of renal function, renal is following (3) Poorly controlled diabetes mellitus Assessment & Plan: recommend tight glycemic control to keep blood glucose between 100-140 (4) Diabetic foot infection Assessment & Plan: with ESBL producing Klebsiella Pneumonia and citrobacter diversus , already on wide spectrum antibiotics , keep leg elevated while in bed, with tight glycemic control, local wound dressings as per roving hauler (5) Sepsis Assessment & Plan: with Citrobacter diversus , suspect source is his left foot chronic wound with infection , continue meropenem for now to cover for ESBL producing Klebsiella pneumoniae . may need surgical debridement of the left foot for source control and possible wound VAC, roving hauler is following . will treat him with meropenem for 6 weeks for osteomyelitis of the feet AND THIS WILL COVER HIS BACTEREMIA TOO . Subjective Constitutional: Reports: fatigue HEENT: Reports: no symptoms Respiratory: Reports: no symptoms Breasts: Reports: no symptoms Cardiovascular: Reports: no symptoms Gastrointestinal/Abdominal: Reports: no symptoms Genitourinary: Reports: no symptoms Neurologic: Reports: weakness, confusion Psychiatric: Reports: no symptoms Skin: Reports: ulcer Endocrine: Reports: no symptoms Hematologic: Reports: no symptoms Musculoskeletal: Reports: pain, swelling Allergies: Coded Allergies: METFORMIN (Verified Allergy, Unknown, 10/09/18) Vomiting Objective Vital Signs Last 24 Hour Vital Signs Date Time Temp Pulse Resp B/P (MAP) Pulse Ox O2 Delivery O2 Flow Rate FiO2 08/17/19 20:00 99.2 82 18 132/67 (88) 96 08/17/19 16:00 98.2 65 18 136/78 (97) 97 08/17/19 12:00 98.8 72 18 150/86 (107) 94 08/17/19 09:00 Room Air 10/5/19 21:00 Room Air Height (Feet): 6 Height (Inches): 1.00 Weight (Pounds): 233 General Appearance: WD/WN, no acute distress HEENT: normocephalic, atraumatic, anicteric, mucous membranes moist, PERRL Respiratory/Chest: chest wall non-tender, lungs clear, normal breath sounds, no respiratory distress, no accessory muscle use Cardiovascular: normal peripheral pulses, normal rate, regular rhythm, no gallop/murmur, no JVD Abdomen: normal bowel sounds, soft, non tender, no organomegaly, non distended , no mass, no scars Genitourinary: normal external genitalia Extremities: no cyanosis, no clubbing Skin: no rash, no lesions, ulcers Neurologic/Psychiatric: house detective II-XII grossly normal, alert, oriented x 3, responsive Lymphatic: no neck adenopathy, no groin adenopathy Musculoskeletal: normal muscle bulk Current Medications Medications (Trade) Dose Ordered Sig/Aylin Route PRN Reason Start Time Stop Time Status Last Admin Dose Admin Acetaminophen (Tylenol) 650 mg Q4H PRN ORAL Mild Pain/Temp > 100.5 08/16/19 21:30 09/15/19 21:29 Aspirin (Ecotrin) 81 mg DAILY ORAL 08/17/19 09:00 09/11/19 19:29 08/17/19 08:44 Atorvastatin Calcium (Lipitor) 40 mg BEDTIME ORAL 08/16/19 22:00 09/15/19 21:59 08/16/19 22:10 Bisacodyl (Dulcolax) 10 mg DAILY PRN RECTAL Constipation 08/17/19 09:00 09/10/19 22:59 Chlorhexidine Gluconate (Ariadna-Hex 2%) 1 applic DAILY@1999 TOPIC 08/17/19 20:00 09/12/19 19:59 Dextrose (Dextrose 50%) 25 ml Q30M PRN IV Hypoglycemia 08/16/19 21:45 09/09/19 07:14 Dextrose (Dextrose 50%) 50 ml Q30M PRN IV Hypoglycemia 08/16/19 21:45 09/09/19 07:14 Docusate Sodium (Colace) 100 mg TWICE A DAY ORAL 08/17/19 09:00 09/11/19 18:44 Dorzolamide/ Timolol (Cosopt) 1 drop TWICE A DAY RIGHT EYE 08/17/19 09:00 09/13/19 08:59 08/17/19 17:24 Escitalopram Oxalate (Lexapro) 10 mg DAILY ORAL 08/17/19 09:00 09/09/19 08:59 08/17/19 08:46 Famotidine (Pepcid) 20 mg DAILY@0630 ORAL 08/17/19 06:30 09/10/19 06:29 08/17/19 06:01 Fish Oil (Fish Oil) 1,000 mg BID ORAL 08/17/19 09:00 09/11/19 18:44 08/17/19 17:23 Gabapentin (Neurontin) 300 mg BID ORAL 08/17/19 09:00 09/11/19 18:45 08/17/19 17:24 Gabapentin (Neurontin) 600 mg BEDTIME ORAL 08/16/19 22:00 09/15/19 21:59 08/16/19 22:10 Heparin Sodium (Porcine) (Heparin 5000 units/ml) 5,000 units EVERY 12 HOURS SUBQ 08/16/19 22:00 09/15/19 21:59 08/17/19 08:54 Heparin Sodium/ Sodium Chloride (Heparin 1000 units/500ml Premix) 1,000 unit ONCE ONCE IV 08/17/19 21:30 08/17/19 21:31 Hydralazine HCl (Apresoline) 25 mg Q4H PRN ORAL bp over 160 syst 08/16/19 21:30 09/09/19 21:29 Insulin Aspart (NovoLOG) BEFORE MEALS AND HS SUBQ 08/17/19 06:30 09/09/19 21:59 08/17/19 06:25 Insulin Aspart (NovoLOG) 6 units NOVOTIAC SUBQ 08/18/19 06:30 09/09/19 11:49 Insulin Detemir (Levemir) 30 units Q12HR SUBQ 08/16/19 22:00 09/15/19 21:59 08/17/19 08:53 Latanoprost (Xalatan) 1 drop BEDTIME RIGHT EYE 08/17/19 22:00 09/12/19 21:59 Meropenem 1 gm/ Sodium Chloride 55 ml @ 110 mls/hr Q12HR@1100,2300 IVPB 08/17/19 11:00 08/18/19 12:59 08/17/19 11:47 Multivitamins Therapeutic (Therapeutic Multivitamin) 1 ea BID ORAL 08/17/19 09:00 09/11/19 18:45 08/17/19 17:23 Quetiapine Fumarate (SEROquel) 50 mg Q12HR ORAL 08/16/19 22:00 09/15/19 21:59 08/17/19 08:44 Sodium Chloride 1,000 ml @ 50 mls/hr Q20H IV 08/16/19 21:30 09/11/19 10:29 08/17/19 17:29 Tamsulosin HCl (Flomax) 0.4 mg BEDTIME ORAL 08/16/19 22:00 09/15/19 21:59 08/16/19 22:10 Kwasi Martinez M.D. Aug 17, 2019 20:32
[2019-08-17] MEDS ORDERED: Heparin1,000 units/500ml Premix(Conc:2 units/ml) IV ONE (21:30)
[2019-08-17] MEDS: Tamsulosin 0.4mg cap ORAL SCH (21:59)
[2019-08-17] MEDS: Dyna-Hex 2% Top Sol 2oz TOPIC SCH (21:59)
[2019-08-17] MEDS: Atorvastatin 20mg tab ORAL SCH (21:59)
[2019-08-17] MEDS ORDERED: NovoLOG Insulin Flexpen SUBQ SCH (22:00)
--- NOTE | 2019-08-17 22:00 | NUR ---
NURSE NOTES: At time of giving meds, patient was very agitated, suspicious, sarcastic and screaming to RN. Explained all the procedures but patient was being disrespectful.
[2019-08-17] MEDS: Latanoprost 0.005% Opth 2.5ml Soln RIGHT EYE SCH (22:23)
[2019-08-18] VITALS: BP 151/86
[2019-08-18] MEDS: Guaifenesin/DM 10ml syrup ORAL PRN ×2 (06:25→15:48)
[2019-08-18 06:27] LABS: ANION GAP 7 mmol/L (5-15); BLOOD UREA NITROGEN 30 mg/dL (7-18); CALCIUM 8.5 MG/DL (8.5-10.1); CARBON DIOXIDE 24 MMOL/L (21-32); CHLORIDE 104 MMOL/L (98-107); CREATININE 1.9 MG/DL (0.55-1.30); POTASSIUM 4.4 MMOL/L (3.5-5.1); SODIUM 135 MMOL/L (136-145)
[2019-08-18] MEDS: NovoLOG Insulin Flexpen SUBQ SCH ×7 (06:35→21:20)
[2019-08-18 06:37] LABS: BASOPHILS % (AUTO) 0.7 % (0.0-2.0); EOSINOPHILS % (AUTO) 2.3 % (0.0-3.0); HEMATOCRIT 30.2 % (42.0-52.0); HEMOGLOBIN 9.4 G/DL (14.2-18.0); LYMPHOCYTES % (AUTO) 12.7 % (20.0-45.0); MEAN CORPUSCULAR VOLUME 86 FL (80-99); MONOCYTES % (AUTO) 6.9 % (1.0-10.0); NEUTROPHILS % (AUTO) 77.4 % (45.0-75.0); PLATELET COUNT 352 K/UL (150-450); RED BLOOD COUNT 3.52 M/UL (4.70-6.10); RED CELL DISTRIBUTION WIDTH 15.5 % (11.6-14.8); WHITE BLOOD COUNT 6.8 K/UL (4.8-10.8)
--- NOTE | 2019-08-18 06:40 | NUR ---
NURSE NOTES: Blood collected and sent to the lab.
--- NOTE | 2019-08-18 06:51 | General Progress Note ---
Assessment/Plan Problem List: (1) Foot ulcer due to secondary DM ICD Codes: E13.621 - Other specified diabetes mellitus with foot ulcer; L97.509 - Non-pressure chronic ulcer of other part of unspecified foot with unspecified severity SNOMED: 7512983, 939645044 (2) Diabetic nephropathy ICD Codes: E11.21 - Type 2 diabetes mellitus with diabetic nephropathy SNOMED: 42328620, 544329133 (3) Poorly controlled diabetes mellitus ICD Codes: E11.65 - Type 2 diabetes mellitus with hyperglycemia SNOMED: 43641478, 856394212 (4) MDD (major depressive disorder), recurrent episode, moderate ICD Codes: F33.1 - Major depressive disorder, recurrent, moderate SNOMED: 65214315, 136464389 Status: progressing Assessment/Plan: continue Levemir 30 units bid continue Novolog 6 units ac tid - hold if not eating continue NISS ac / hs Subjective Allergies: Coded Allergies: METFORMIN (Verified Allergy, Unknown, 10/09/18) Vomiting All Systems: reviewed and negative except above Subjective events noted fair glycemic control appetite is poor - mealtime Novolog is being held Item Value Date Time Bedside Blood Glucose 161 mg/dl H 08/18/19 0636 Bedside Blood Glucose 196 mg/dl H 08/17/19 2219 Bedside Blood Glucose 107 mg/dl 08/17/19 1650 Bedside Blood Glucose 85 mg/dl 08/17/19 1130 Bedside Blood Glucose 127 mg/dl H 08/17/19 0853 Bedside Blood Glucose 127 mg/dl H 08/17/19 0625 Objective Last 24 Hour Vital Signs Date Time Temp Pulse Resp B/P (MAP) Pulse Ox O2 Delivery O2 Flow Rate FiO2 08/18/19 00:00 97.9 75 19 151/86 (107) 95 08/17/19 21:00 Room Air 08/17/19 20:00 99.2 82 18 132/67 (88) 96 08/17/19 16:00 98.2 65 18 136/78 (97) 97 08/17/19 12:00 98.8 72 18 150/86 (107) 94 08/17/19 09:00 Room Air Intake and Output 08/17/19 08/18/19 19:00 07:00 Intake Total 1405 ml 1655 ml Output Total 1000 ml Balance 1405 ml 655 ml Intake Oral 300 ml IV Total 605 ml 555 ml Other 800 ml 800 ml Output Urine Total 1000 ml # Voids 1 # Bowel Movements 1 1 Laboratory Tests 08/18/19 05:40: White Blood Count 6.8, Red Blood Count 3.52L, Hemoglobin 9.4L, Hematocrit 30.2L , Mean Corpuscular Volume 86, Mean Corpuscular Hemoglobin 26.8L, Mean Corpuscular Hemoglobin Concent 31.2L, Red Cell Distribution Width 15.5H, Platelet Count 352, Mean Platelet Volume 5.2L, Neutrophils (%) (Auto) 77.4H, Lymphocytes (%) (Auto) 12.7L, Monocytes (%) (Auto) 6.9, Eosinophils (%) (Auto) 2.3, Basophils (%) (Auto) 0.7, Sodium Level 135L, Potassium Level 4.4, Chloride Level 104, Carbon Dioxide Level 24, Anion Gap 7, Blood Urea Nitrogen 30H, Creatinine 1.9H, Estimat Glomerular Filtration Rate 37.7, Glucose Level 162H, Calcium Level 8.5 Height (Feet): 6 Height (Inches): 1.00 Weight (Pounds): 233 General Appearance: no apparent distress Neck: normal alignment Cardiovascular: normal rate Respiratory/Chest: lungs clear Abdomen: normal bowel sounds Pelvis: normal external exam Objective Current Medications Medications (Trade) Dose Ordered Sig/Aylin Route PRN Reason Start Time Stop Time Status Last Admin Dose Admin Acetaminophen (Tylenol) 650 mg Q4H PRN ORAL Mild Pain/Temp > 100.5 08/16/19 21:30 09/15/19 21:29 Aspirin (Ecotrin) 81 mg DAILY ORAL 08/17/19 09:00 09/11/19 19:29 08/17/19 08:44 Atorvastatin Calcium (Lipitor) 40 mg BEDTIME ORAL 08/16/19 22:00 09/15/19 21:59 08/17/19 21:59 Bisacodyl (Dulcolax) 10 mg DAILY PRN RECTAL Constipation 08/17/19 09:00 09/10/19 22:59 Chlorhexidine Gluconate (Ariadna-Hex 2%) 1 applic DAILY@1999 TOPIC 08/17/19 20:00 09/12/19 19:59 08/17/19 21:59 Dextrose (Dextrose 50%) 25 ml Q30M PRN IV Hypoglycemia 08/16/19 21:45 10/29/19 07:14 Dextrose (Dextrose 50%) 50 ml Q30M PRN IV Hypoglycemia 08/16/19 21:45 09/09/19 07:14 Docusate Sodium (Colace) 100 mg TWICE A DAY ORAL 08/17/19 09:00 09/11/19 18:44 Dorzolamide/ Timolol (Cosopt) 1 drop TWICE A DAY RIGHT EYE 08/17/19 09:00 09/13/19 08:59 08/17/19 17:24 Escitalopram Oxalate (Lexapro) 10 mg DAILY ORAL 08/17/19 09:00 09/09/19 08:59 08/17/19 08:46 Famotidine (Pepcid) 20 mg DAILY@0630 ORAL 08/17/19 06:30 09/10/19 06:29 08/18/19 06:25 Fish Oil (Fish Oil) 1,000 mg BID ORAL 08/17/19 09:00 09/11/19 18:44 08/17/19 17:23 Gabapentin (Neurontin) 300 mg BID ORAL 08/17/19 09:00 09/11/19 18:45 08/17/19 17:24 Gabapentin (Neurontin) 600 mg BEDTIME ORAL 08/16/19 22:00 09/15/19 21:59 08/17/19 21:59 Guaifenesin/ Dextromethorphan (Robitussin DM Syrup) 15 ml Q4H PRN ORAL For Cough 08/18/19 05:51 09/17/19 05:50 08/18/19 06:25 Heparin Sodium (Porcine) (Heparin 5000 units/ml) 5,000 units EVERY 12 HOURS SUBQ 08/16/19 22:00 09/15/19 21:59 08/17/19 22:16 Hydralazine HCl (Apresoline) 25 mg Q4H PRN ORAL bp over 160 syst 08/16/19 21:30 09/09/19 21:29 Insulin Aspart (NovoLOG) BEFORE MEALS AND HS SUBQ 08/17/19 06:30 09/09/19 21:59 08/18/19 06:36 Insulin Aspart (NovoLOG) 6 units NOVOTIAC SUBQ 08/18/19 06:30 09/09/19 11:49 08/18/19 06:35 Insulin Detemir (Levemir) 30 units Q12HR SUBQ 08/16/19 22:00 09/15/19 21:59 08/17/19 22:19 Latanoprost (Xalatan) 1 drop BEDTIME RIGHT EYE 08/17/19 22:00 09/12/19 21:59 08/17/19 22:23 Meropenem 1 gm/ Sodium Chloride 55 ml @ 110 mls/hr Q12HR@1100,2300 IVPB 08/17/19 11:00 08/18/19 12:59 08/17/19 22:24 Multivitamins Therapeutic (Therapeutic Multivitamin) 1 ea BID ORAL 08/17/19 09:00 09/11/19 18:45 08/17/19 17:23 Quetiapine Fumarate (SEROquel) 50 mg Q12HR ORAL 08/16/19 22:00 09/15/19 21:59 08/17/19 21:59 Sodium Chloride 1,000 ml @ 50 mls/hr Q20H IV 08/16/19 21:30 09/11/19 10:29 08/17/19 17:29 Tamsulosin HCl (Flomax) 0.4 mg BEDTIME ORAL 08/16/19 22:00 09/15/19 21:59 08/17/19 21:59 Binh Borges MD Aug 18, 2019 06:51
--- NOTE | 2019-08-18 07:20 | NUR ---
HAND-OFF: Report given to PACO Sneed.
--- NOTE | 2019-08-18 07:52 | NUR ---
NURSE NOTES: received pt in bed, no sign of pain or discomfort. Pt receives IVF through PICC MAGALI, dressing dry and intact. Also bilateral foot dressed, dry and intact. Condom cath in place, tube secured to leg by anchor. Call light within easy reach, siderails up x2, bed locked at the lowest position possible. Will continue to monitor patient and follow up with the plan of care.
[2019-08-18 08:00] VITALS: BP 130/68
[2019-08-18] MEDS: Docusate 100mg cap ORAL SCH ×3 (09:00→17:43)
[2019-08-18] MEDS: Multivitamin w/Minerals tab ORAL SCH ×3 (09:00→18:00)
[2019-08-18] MEDS: Aspirin EC 81mg tab ORAL SCH (09:01)
[2019-08-18] MEDS: Cosopt Opth Soln 10 mL Btl RIGHT EYE SCH ×2 (09:02→17:28)
[2019-08-18] MEDS: Heparin 5000 units/ml inj SUBQ SCH ×2 (09:06→20:24)
[2019-08-18] MEDS: Levemir Flexpen SUBQ SCH ×2 (09:07→21:20)
--- NOTE | 2019-08-18 09:23 | NUR ---
CASE MANAGEMENT: REVIEW 08/18/19 SI: SEPSIS, ACUTE RF 98.2 79 18 130/68 96%RA NA+135; BUN 30; CRE 1.8; URIC ACID 7.9; CA 8.2; RBC 3.52; H/H 9.4/30. IS: HEPARIN SQ Q12 IV DAPTOMYCIN Q24 IV MEROPENEM Q12 SEROQUEL PO Q12H HYDRALAZINE PO Q4/PRN NOVOLOG QD TIAC LEVEMIR SQ BID NEURONTIN PO BID IVF NS @50/HR FLOMAX PO HS ASPIRIN PO QD COSOPT OD BID ROBITUSSIN PO Q4/PRN : TX TO 2E TELE UNIT PLAN: CONSIDER FOR DIALYSIS ID- MAY NEED GRAFTING TO CLOSE FOOT POSS. WOUND VAC MONITOR LABS
--- NOTE | 2019-08-18 09:47 | Surgery Progress Note ---
Surgery Progress Note Subjective Symptoms: improved Additional Comments no acute events comfortable resting no complaints Objective Last 24 Hour Vital Signs Date Time Temp Pulse Resp B/P (MAP) Pulse Ox O2 Delivery O2 Flow Rate FiO2 08/18/19 08:00 98.2 79 18 130/68 (88) 96 08/18/19 00:00 97.9 75 19 151/86 (107) 95 08/17/19 21:00 Room Air 08/17/19 20:00 99.2 82 18 132/67 (88) 96 08/17/19 16:00 98.2 65 18 136/78 (97) 97 08/17/19 12:00 98.8 72 18 150/86 (107) 94 I&O Intake and Output 08/17/19 08/18/19 19:00 07:00 Intake Total 1405 ml 1655 ml Output Total 2350 ml Balance 1405 ml -695 ml Intake Oral 300 ml IV Total 605 ml 555 ml Other 800 ml 800 ml Output Urine Total 2350 ml # Voids 1 # Bowel Movements 1 1 Dressing: dry Wound: clean Cardiovascular: RSR Respiratory: clear Abdomen: soft, flat, non-tender, present bowel sounds, non-distended Extremities: edema, no tenderness, no cyanosis, other Laboratory Tests Test 08/18/19 05:40 White Blood Count 6.8 K/UL (4.8-10.8) Red Blood Count 3.52 M/UL (4.70-6.10) L Hemoglobin 9.4 G/DL (14.2-18.0) L Hematocrit 30.2 % (42.0-52.0) L Mean Corpuscular Volume 86 FL (80-99) Mean Corpuscular Hemoglobin 26.8 PG (27.0-31.0) L Mean Corpuscular Hemoglobin Concent 31.2 G/DL (32.0-36.0) L Red Cell Distribution Width 15.5 % (11.6-14.8) H Platelet Count 352 K/UL (150-450) Mean Platelet Volume 5.2 FL (6.5-10.1) L Neutrophils (%) (Auto) 77.4 % (45.0-75.0) H Lymphocytes (%) (Auto) 12.7 % (20.0-45.0) L Monocytes (%) (Auto) 6.9 % (1.0-10.0) Eosinophils (%) (Auto) 2.3 % (0.0-3.0) Basophils (%) (Auto) 0.7 % (0.0-2.0) Sodium Level 135 MMOL/L (136-145) L Potassium Level 4.4 MMOL/L (3.5-5.1) Chloride Level 104 MMOL/L (98-107) Carbon Dioxide Level 24 MMOL/L (21-32) Anion Gap 7 mmol/L (5-15) Blood Urea Nitrogen 30 mg/dL (7-18) H Creatinine 1.9 MG/DL (0.55-1.30) H Estimat Glomerular Filtration Rate 37.7 mL/min (>60) Glucose Level 162 MG/DL (74-106) H Calcium Level 8.5 MG/DL (8.5-10.1) Plan Problems: (1) Osteomyelitis of ankle or foot, left, acute Assessment & Plan: Left Foot plain films FINDINGS: Bones joints: No acute fracture. No dislocation. Surgical absence of the fifth phalanges and distal half of the fifth metatarsal bone. Marked deformity in the mid foot and base of the first metatarsal bone likely posttraumatic post surgical change. Soft tissues: Soft tissue swelling about the plantar aspect of the foot. No radiopaque foreign body. IMPRESSION: 1. Marked deformity in the mid foot likely postsurgical posttraumatic change. 2. No gross acute bony abnormality. 3. Status post resection of the fifth phalanges as described Extensive destruction of the midfoot likely on the basis of neuropathic disease (Charcot foot). Suggest correlation with plain x-ray. The presence of superimposed osteomyelitis involving the area of the midfoot, anterior hindfoot and posterior forefoot is not excludable. Advanced Charcot foot with superimposed degenerative arthrosis and deformity. Prominent plantar surface ulceration without compelling evidence for acute osteomyelitis involving the forefoot, midfoot or hindfoot. 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 (2) Foot ulcer due to secondary DM (3) Cellulitis of lower extremity Assessment & Plan: This is a 48-year-old male with known history of prior infections and surgical mention of his lower extremity Charcot's foot who is been recovering in a nursing facility until recently noted to have more edema cellulitis and drainage. Leukocytosis, HD stable, renal insufficiency, dehydration. Admitted for further care and management Will discuss with podiatry potential necessity for further surgical intervention. no plans at this time IV antibiotics as per infectious disease Podiatry consultation appreciated Trend labs MRI of right and left lower extremity noted We will continue with local wound care and antibiotics. d/c planning from surgical standpoint Thank you for allowing me to participate in patient's care will continue to follow with recognitions Melquiades Rush Aug 18, 2019 09:47
--- NOTE | 2019-08-18 10:01 | Nephrology Progress Note ---
Assessment/Plan Problem List: (1) Renal failure (ARF), acute on chronic (2) Diabetic nephropathy (3) Cellulitis of lower extremity Assessment Acute on chronic renal failure- Diabetic Nephropathy DM OOC Anemia Electrolyte imbalance HTN Plan today's labs reviewed Cr lower previously Refuses ch- bladder scan: Zero Hydrate Keep BP and BS in check avoid nephrotoxics monitor renal parameters 2D echo Left ventricular ejection fraction is estimated to be 55%. COOPER kidney unremarkable Urine studies NS and or Albumin bolus Subjective ROS Limited/Unobtainable: No Constitutional: Reports: malaise, weakness Objective Objective Last 24 Hour Vital Signs Date Time Temp Pulse Resp B/P (MAP) Pulse Ox O2 Delivery O2 Flow Rate FiO2 08/18/19 09:00 Room Air 08/18/19 08:00 98.2 79 18 130/68 (88) 96 08/18/19 00:00 97.9 75 19 151/86 (107) 95 08/17/19 21:00 Room Air 08/17/19 20:00 99.2 82 18 132/67 (88) 96 08/17/19 16:00 98.2 65 18 136/78 (97) 97 08/17/19 12:00 98.8 72 18 150/86 (107) 94 Intake and Output 08/17/19 08/18/19 19:00 07:00 Intake Total 1405 ml 1655 ml Output Total 2350 ml Balance 1405 ml -695 ml Intake Oral 300 ml IV Total 605 ml 555 ml Other 800 ml 800 ml Output Urine Total 2350 ml # Voids 1 # Bowel Movements 1 1 Laboratory Tests 08/18/19 05:40: White Blood Count 6.8, Red Blood Count 3.52L, Hemoglobin 9.4L, Hematocrit 30.2L , Mean Corpuscular Volume 86, Mean Corpuscular Hemoglobin 26.8L, Mean Corpuscular Hemoglobin Concent 31.2L, Red Cell Distribution Width 15.5H, Platelet Count 352, Mean Platelet Volume 5.2L, Neutrophils (%) (Auto) 77.4H, Lymphocytes (%) (Auto) 12.7L, Monocytes (%) (Auto) 6.9, Eosinophils (%) (Auto) 2.3, Basophils (%) (Auto) 0.7, Sodium Level 135L, Potassium Level 4.4, Chloride Level 104, Carbon Dioxide Level 24, Anion Gap 7, Blood Urea Nitrogen 30H, Creatinine 1.9H, Estimat Glomerular Filtration Rate 37.7, Glucose Level 162H, Calcium Level 8.5 Height (Feet): 6 Height (Inches): 1.00 Weight (Pounds): 233 General Appearance: no apparent distress Respiratory/Chest: decreased breath sounds Abdomen: soft Objective no change Ernesto Frost MD Aug 18, 2019 10:01
[2019-08-18] MEDS ORDERED: HYDRALAZINE HCL25 M1 ORAL (10:48)
[2019-08-18] MEDS ORDERED: NOVOLOG100 UNITS1 SUBQ (10:48)
[2019-08-18] MEDS ORDERED: LEVEMIR FL100 UNIT/1 SUBQ (10:48)
--- NOTE | 2019-08-18 10:50 | General Progress Note ---
Assessment/Plan Status: progressing Assessment/Plan: S: I am feeling better O: Is advised against walking on the affected foot for now . Pain is well controlled . PHYSICAL EXAMINATION: . HEAD AND NECK: multiple molars with plaques, Atraumatic and normocephalic. CHEST: Clear to auscultation. No wheezing. No crackles.HEART: S1 and S2. Regular rate and rhythm. No S3. No S4. ABDOMEN: Soft. No organomegaly.MUSCULOSKELETAL: Positive for bilater Charcot' s foot. Positive for stump of the prior tarsometatarsal resections. open wound in plantar aspect of left foot NEUROLOGIC: The patient is awake, alert, and oriented x3.PSYCHIATRIC: Mood and affect is normal LABORATORY DATA: Dated 08/18/2019 reviewed MRI from 08/13/19 reviewed A/P: 1- Sever Gram negative Sepsis : Resolved 2. Acute cellulitis with or with out Acute OM of left foot. 2- DM- uncontrolled 3. Non compliance with medications 3- Charcot Foot- Left sided 4- HTN 5- Psych 6. Acute on Chronic KD Plan: MRI of the foot reviewed current culture targeted abx Will monitor Cr level.[place] zone in terms of medical necessity for initiation of HD. Will monitor Cr for now\ No surgical intervention in foot. I will c/w current abx Subjective Allergies: Coded Allergies: METFORMIN (Verified Allergy, Unknown, 10/09/18) Vomiting Objective Last 24 Hour Vital Signs Date Time Temp Pulse Resp B/P (MAP) Pulse Ox O2 Delivery O2 Flow Rate FiO2 08/18/19 09:00 Room Air 08/18/19 08:00 98.2 79 18 130/68 (88) 96 08/18/19 00:00 97.9 75 19 151/86 (107) 95 08/17/19 21:00 Room Air 08/17/19 20:00 99.2 82 18 132/67 (88) 96 08/17/19 16:00 98.2 65 18 136/78 (97) 97 08/17/19 12:00 98.8 72 18 150/86 (107) 94 Intake and Output 08/17/19 08/18/19 19:00 07:00 Intake Total 1405 ml 1655 ml Output Total 2350 ml Balance 1405 ml -695 ml Intake Oral 300 ml IV Total 605 ml 555 ml Other 800 ml 800 ml Output Urine Total 2350 ml # Voids 1 # Bowel Movements 1 1 Laboratory Tests 08/18/19 05:40: White Blood Count 6.8, Red Blood Count 3.52L, Hemoglobin 9.4L, Hematocrit 30.2L , Mean Corpuscular Volume 86, Mean Corpuscular Hemoglobin 26.8L, Mean Corpuscular Hemoglobin Concent 31.2L, Red Cell Distribution Width 15.5H, Platelet Count 352, Mean Platelet Volume 5.2L, Neutrophils (%) (Auto) 77.4H, Lymphocytes (%) (Auto) 12.7L, Monocytes (%) (Auto) 6.9, Eosinophils (%) (Auto) 2.3, Basophils (%) (Auto) 0.7, Sodium Level 135L, Potassium Level 4.4, Chloride Level 104, Carbon Dioxide Level 24, Anion Gap 7, Blood Urea Nitrogen 30H, Creatinine 1.9H, Estimat Glomerular Filtration Rate 37.7, Glucose Level 162H, Calcium Level 8.5 Height (Feet): 6 Height (Inches): 1.00 Weight (Pounds): 233 Dexter Haas MD Aug 18, 2019 10:50
--- NOTE | 2019-08-18 10:55 | Diagnostic Imaging Report ---
Indications: Chest pain Technique: Single day single isotope protocol utilized. Initially, resting images obtained using IV administration 10 millicuries 99M technetium Myoview. Subsequently, patient underwent Cristy stress testing. See cardiology report for details. During Lexiscan infusion, IV administration 31.3 mCi 99 M technetium Myoview. SPECT and planar images obtained. SPECT images gated to 8 phases of the cardiac cycle were also obtained, and reformatted into cine images for evaluation of ejection fraction. Comparison: none Findings: Presence or absence of symptoms during infusion is not described on the cardiology report. Per cardiology report, resting EKG demonstrates normal sinus rhythm, inferior [place], anterior ischemia. Presence or absence of ST changes during infusion is not described in the cardiology report. Imaging demonstrates apparent subtle decreased perfusion in the inferior wall which is less evident on the resting images. No definite fixed perfusion defect demonstrated. Calculated post stress ejection fraction 57%. No focal wall motion abnormality Impression: Nonischemic clinical response to pharmacologic stress, per cardiology report Nonischemic electrocardiographic response to pharmacologic stress, per cardiology report Equivocal reversible decreased perfusion in the inferior wall; if real, may reflect inferior wall ischemia Calculated post stress ejection fraction 57%
[2019-08-18] MEDS: Meropenem 1 GM in NS 55 ML IVPB SCH ×2 (11:09→17:39)
--- NOTE | 2019-08-18 11:11 | CDS Physician Query ---
Clarification is required for compliance, coding accuracy, and to reflect severity of illness for this patient Dear Dr. Adriano Carney Date: 08/18/2019 Court Assistant/CDS Name: Carlita Lizama Clinical Documentation states: HNP: 48-year-old male with a history of uncontrolled diabetes with Charcot foot...Severe Sepsis 08/14 cardiology note: Elevated troponin I level in this patient. Multiple etiologies could be troponin leakage due to renal failure versus type 2 non-ST elevation myocardial infarction or demand ischemia in the setting of coronary artery disease or due to underlying infection. MPI stress test is postponed till tomorrow. Echo with normal LV systolic and diastolic function and LVEF ~55% , continue aspirin and atorvastatin. Please respond to the following question: Is there a diagnosis specific to these symptoms or values? If so please state below. PHYSICIAN RESPONSE: [] NSTEMI [] Type 2 MA [] Demand ischemia [] Other: [] Clinically Undetermined Present on Admission: [] Yes [] No [] Clinically Undetermined Physician signature Date Please also document in your Progress Notes and/or Discharge Summary and indicate if the condition was present on admission. JOVON
[2019-08-18 12:00] VITALS: BP 145/82
--- NOTE | 2019-08-18 15:54 | NUR ---
DISCHARGE PLANNING DISCHARGE ORDER NOTED Patient has been accepted to; [facility] [address] [place] [address] Bed:202-A Skilled [phone] for Nurse to Nurse report [facility] ETA for transportation: 17:30
[2019-08-18 16:00] VITALS: BP 155/97
--- NOTE | 2019-08-18 16:41 | NUR ---
NURSE NOTES: nurse called [facility], spoken to RN Anaya to give report but RN didn't accept it yet, as said is awaiting for paperwork to come from her facility Admissions. Said Cheli from Admissions or Clari will contact this nurse. Mike MORRELL received order from Dr dominguez, pt is MRSA and ESBL colonized.
--- NOTE | 2019-08-18 16:50 | Infectious Diseases Prog Note ---
Assessment/Plan Problems: (1) Osteomyelitis of foot Assessment & Plan: with bony destruction on MRI and charcot joint related bony changes , can't rule out underlying osteomyelitis . will treat him with meropenem for 6 weeks to cover osteomyelitis of the feet . needs close follow up with casing material weigher for monitoring of his foot wound . may need grafting in the future to close his left foot wound and to prevent recurrent infection . EOT 09/21/19 PLEASE MONITOR WEEKLY LABS WITH CBC AND CMP AND ESR WHILE ON ANTIBIOTICS (2) Renal failure (ARF), acute on chronic Assessment & Plan: may need HD , since not much UOP , avoid nephrotoxics , continue hydration, close monitoring of renal function, renal is following (3) Poorly controlled diabetes mellitus Assessment & Plan: recommend tight glycemic control to keep blood glucose between 100-140 (4) Diabetic foot infection Assessment & Plan: with ESBL producing Klebsiella Pneumonia and citrobacter diversus , already on wide spectrum antibiotics , keep leg elevated while in bed, with tight glycemic control, local wound dressings as per casing material weigher (5) Sepsis Assessment & Plan: with Citrobacter diversus , suspect source is his left foot chronic wound with infection , continue meropenem for now to cover for ESBL producing Klebsiella pneumoniae . no surgical debridement of the left foot is needed or wound VAC as per casing material weigher . will treat him with meropenem for 6 weeks for osteomyelitis of the feet AND THIS WILL COVER HIS BACTEREMIA TOO . Subjective Constitutional: Reports: no symptoms HEENT: Reports: no symptoms Respiratory: Reports: no symptoms Breasts: Reports: no symptoms Cardiovascular: Reports: no symptoms Gastrointestinal/Abdominal: Reports: no symptoms Genitourinary: Reports: no symptoms Neurologic: Reports: no symptoms Psychiatric: Reports: no symptoms Skin: Reports: ulcer Endocrine: Reports: no symptoms Hematologic: Reports: no symptoms Musculoskeletal: Reports: pain Allergies: Coded Allergies: METFORMIN (Verified Allergy, Unknown, 10/09/18) Vomiting Objective Vital Signs Last 24 Hour Vital Signs Date Time Temp Pulse Resp B/P (MAP) Pulse Ox O2 Delivery O2 Flow Rate FiO2 08/18/19 12:00 97.3 70 20 145/82 (103) 94 08/18/19 09:00 Room Air 08/18/19 08:00 98.2 79 18 130/68 (88) 96 08/18/19 00:00 97.9 75 19 151/86 (107) 95 08/17/19 21:00 Room Air 08/17/19 20:00 99.2 82 18 132/67 (88) 96 Height (Feet): 6 Height (Inches): 1.00 Weight (Pounds): 233 General Appearance: WD/WN, no acute distress HEENT: normocephalic, atraumatic, anicteric, mucous membranes moist, PERRL Respiratory/Chest: chest wall non-tender, lungs clear, normal breath sounds, no respiratory distress, no accessory muscle use Cardiovascular: normal peripheral pulses, normal rate, regular rhythm, no gallop/murmur, no JVD Abdomen: normal bowel sounds, soft, non tender, no organomegaly, non distended , no mass, no scars Genitourinary: normal external genitalia Extremities: no cyanosis, no clubbing Skin: no rash, no lesions, ulcers Neurologic/Psychiatric: manager of regulatory affairs II-XII grossly normal, alert, responsive, motor weakness, sensory deficit Lymphatic: no neck adenopathy, no groin adenopathy Musculoskeletal: normal muscle bulk, no effusion Laboratory Tests Test 08/18/19 05:40 White Blood Count 6.8 K/UL (4.8-10.8) Red Blood Count 3.52 M/UL (4.70-6.10) L Hemoglobin 9.4 G/DL (14.2-18.0) L Hematocrit 30.2 % (42.0-52.0) L Mean Corpuscular Volume 86 FL (80-99) Mean Corpuscular Hemoglobin 26.8 PG (27.0-31.0) L Mean Corpuscular Hemoglobin Concent 31.2 G/DL (32.0-36.0) L Red Cell Distribution Width 15.5 % (11.6-14.8) H Platelet Count 352 K/UL (150-450) Mean Platelet Volume 5.2 FL (6.5-10.1) L Neutrophils (%) (Auto) 77.4 % (45.0-75.0) H Lymphocytes (%) (Auto) 12.7 % (20.0-45.0) L Monocytes (%) (Auto) 6.9 % (1.0-10.0) Eosinophils (%) (Auto) 2.3 % (0.0-3.0) Basophils (%) (Auto) 0.7 % (0.0-2.0) Sodium Level 135 MMOL/L (136-145) L Potassium Level 4.4 MMOL/L (3.5-5.1) Chloride Level 104 MMOL/L (98-107) Carbon Dioxide Level 24 MMOL/L (21-32) Anion Gap 7 mmol/L (5-15) Blood Urea Nitrogen 30 mg/dL (7-18) H Creatinine 1.9 MG/DL (0.55-1.30) H Estimat Glomerular Filtration Rate 37.7 mL/min (>60) Glucose Level 162 MG/DL (74-106) H Calcium Level 8.5 MG/DL (8.5-10.1) Current Medications Medications (Trade) Dose Ordered Sig/Aylin Route PRN Reason Start Time Stop Time Status Last Admin Dose Admin Acetaminophen (Tylenol) 650 mg Q4H PRN ORAL Mild Pain/Temp > 100.5 08/16/19 21:30 09/15/19 21:29 Aspirin (Ecotrin) 81 mg DAILY ORAL 08/17/19 09:00 09/11/19 19:29 08/18/19 09:01 Atorvastatin Calcium (Lipitor) 40 mg BEDTIME ORAL 08/16/19 22:00 09/15/19 21:59 08/17/19 21:59 Bisacodyl (Dulcolax) 10 mg DAILY PRN RECTAL Constipation 08/17/19 09:00 09/10/19 22:59 Chlorhexidine Gluconate (Ariadna-Hex 2%) 1 applic DAILY@2000 TOPIC 08/17/19 20:00 09/12/19 19:59 08/17/19 21:59 Dextrose (Dextrose 50%) 25 ml Q30M PRN IV Hypoglycemia 08/16/19 21:45 09/09/19 07:14 Dextrose (Dextrose 50%) 50 ml Q30M PRN IV Hypoglycemia 08/16/19 21:45 09/09/19 07:14 Docusate Sodium (Colace) 100 mg TWICE A DAY ORAL 08/17/19 09:00 09/11/19 18:44 Dorzolamide/ Timolol (Cosopt) 1 drop TWICE A DAY RIGHT EYE 08/17/19 09:00 09/13/19 08:59 08/18/19 09:02 Escitalopram Oxalate (Lexapro) 10 mg DAILY ORAL 08/17/19 09:00 09/09/19 08:59 08/18/19 09:04 Famotidine (Pepcid) 20 mg DAILY@0630 ORAL 08/17/19 06:30 09/10/19 06:29 08/18/19 06:25 Fish Oil (Fish Oil) 1,000 mg BID ORAL 08/17/19 09:00 09/11/19 18:44 08/18/19 09:01 Gabapentin (Neurontin) 300 mg BID ORAL 08/17/19 09:00 09/11/19 18:45 08/18/19 09:01 Gabapentin (Neurontin) 600 mg BEDTIME ORAL 08/16/19 22:00 09/15/19 21:59 08/17/19 21:59 Guaifenesin/ Dextromethorphan (Robitussin DM Syrup) 15 ml Q4H PRN ORAL For Cough 08/18/19 05:51 09/17/19 05:50 08/18/19 15:48 Heparin Sodium (Porcine) (Heparin 5000 units/ml) 5,000 units EVERY 12 HOURS SUBQ 08/16/19 22:00 09/15/19 21:59 08/18/19 09:06 Hydralazine HCl (Apresoline) 25 mg Q4H PRN ORAL bp over 160 syst 08/16/19 21:30 09/09/19 21:29 Insulin Aspart (NovoLOG) BEFORE MEALS AND HS SUBQ 08/17/19 06:30 09/09/19 21:59 08/18/19 13:10 Insulin Aspart (NovoLOG) 6 units NOVOTIAC SUBQ 08/18/19 06:30 09/09/19 11:49 08/18/19 13:11 Insulin Detemir (Levemir) 30 units Q12HR SUBQ 08/16/19 22:00 09/15/19 21:59 08/18/19 09:07 Latanoprost (Xalatan) 1 drop BEDTIME RIGHT EYE 08/17/19 22:00 09/12/19 21:59 08/17/19 22:23 Multivitamins Therapeutic (Therapeutic Multivitamin) 1 ea BID ORAL 08/17/19 09:00 09/11/19 18:45 08/17/19 17:23 Quetiapine Fumarate (SEROquel) 50 mg Q12HR ORAL 08/16/19 22:00 09/15/19 21:59 08/18/19 09:01 Sodium Chloride 1,000 ml @ 50 mls/hr Q20H IV 08/16/19 21:30 09/11/19 10:29 08/18/19 11:12 Tamsulosin HCl (Flomax) 0.4 mg BEDTIME ORAL 08/16/19 22:00 09/15/19 21:59 08/17/19 21:59 Kwasi Martinez M.D. Aug 18, 2019 16:50
[2019-08-18] MEDS ORDERED: Meropenem 1 GM in NS 55 ML IVPB SCH (18:00)
--- NOTE | 2019-08-18 18:30 | NUR ---
NURSE NOTES: Changed dressing on bilateral foot ulcer, serosanguineous secretion noted at left sole. Cleansd with NS, pat dried and applied 4x4 gauze and secured with kerlix lou and tape, bilateral. Patient is being oppositional defiant, refused to sign belongings list but this nurse checked with pt all his belongings, except contents inside backpack that pt refused to open, all belongings is with patient including jadon phone and insurance sales executive, a prescription eyeglass, a wallet with $21, left foot boot and a black backpack.
--- NOTE | 2019-08-18 18:44 | NUR ---
NURSE NOTES: Nurse never received a call from [facility], so she called the facility and spoken to RN Ben. Ben told this RN he still cannot receive report as he still didn't get the approval and paperwork from the administration to do so.
[2019-08-18] MEDS ORDERED: MERREM1 GM IV (19:12)
--- NOTE | 2019-08-18 19:25 | NUR ---
NURSE NOTES:broker in charge entry. [facility] per embedded case manager of 1730 arrived at 1930, the primary rn Arminda was attempting to give report to the receiving Rn twice and was told that he was instructed not to accept the patient per administration because the facility did not receive the necessary paperwork. Charge nurse also spoke with nurse Contreras who said that these were also his instructions and that admin and business office have left for the day and he does not know which documents are needed. Marck pattern marking supervisor made aware and primary Rn will notify Dr Haas.
--- NOTE | 2019-08-18 19:39 | NUR ---
NURSE NOTES: Received patient in bed, was awaiting to be discharged to [facility][1], RN called and spoke with Zane davison at the facility, per Zane there is no approval from administration of the facility to accept the patient, and they are awaiting for additional paperwork. MD and CN were notified. Call light is within reach, bed is in low position, locked and alarm is on.
[2019-08-18 20:00] VITALS: BP 148/84
[2019-08-18] MEDS: Dyna-Hex 2% Top Sol 2oz TOPIC SCH (20:22)
[2019-08-18] MEDS: Tamsulosin 0.4mg cap ORAL SCH (20:23)
[2019-08-18] MEDS: Atorvastatin 20mg tab ORAL SCH (20:23)
[2019-08-18] MEDS: Latanoprost 0.005% Opth 2.5ml Soln RIGHT EYE SCH (21:19)
[2019-08-19] VITALS: BP 140/78
[2019-08-19 04:00] VITALS: BP 140/77
[2019-08-19] MEDS: Meropenem 1 GM in NS 55 ML IVPB SCH (05:22)
[2019-08-19] MEDS: NovoLOG Insulin Flexpen SUBQ SCH ×3 (06:02→11:45)
--- NOTE | 2019-08-19 07:20 | NUR ---
NURSE NOTES: Received patient on bed, asleep. No SOB or cardiac distress. With PICC line on MAGALI intact and patent, no s/s of infiltration. Wound dressing on lower extremities dry and intact. Head of bed elevated. Bed locked in lowest position. Call light within reach. Will continue plan of care.
[2019-08-19 08:00] VITALS: BP 134/73
--- NOTE | 2019-08-19 08:22 | NUR ---
NURSE NOTES: RN placedcalls to [facility]. no one answers the phone call @ this time. [facility] was called and transportation was arranged @11:00am. Will follow up.
--- NOTE | 2019-08-19 10:40 | NUR ---
NURSE NOTES: RN spoke with Anaya davison @ [facility] and transfer report given with discharge instruction to continue with IV ABX of meropenem and monitor weekly labs.
[2019-08-19] MEDS: Aspirin EC 81mg tab ORAL SCH (10:48)
[2019-08-19] MEDS: Docusate 100mg cap ORAL SCH (10:48)
[2019-08-19] MEDS: Multivitamin w/Minerals tab ORAL SCH (10:48)
[2019-08-19] MEDS: Heparin 5000 units/ml inj SUBQ SCH (10:49)
[2019-08-19] MEDS: Cosopt Opth Soln 10 mL Btl RIGHT EYE SCH (11:04)
--- NOTE | 2019-08-19 11:05 | Nephrology Progress Note ---
Assessment/Plan Problem List: (1) Renal failure (ARF), acute on chronic (2) Diabetic nephropathy (3) Cellulitis of lower extremity Assessment Acute on chronic renal failure- Diabetic Nephropathy DM OOC Anemia Electrolyte imbalance HTN Plan no labs today Cr lower previously Refuses ch- bladder scan: Zero Hydrate Keep BP and BS in check avoid nephrotoxics monitor renal parameters 2D echo Left ventricular ejection fraction is estimated to be 55%. COOPER kidney unremarkable Urine studies NS and or Albumin bolus Subjective ROS Limited/Unobtainable: No Constitutional: Reports: malaise, weakness Objective Objective Last 24 Hour Vital Signs Date Time Temp Pulse Resp B/P (MAP) Pulse Ox O2 Delivery O2 Flow Rate FiO2 08/19/19 08:00 68 134/73 (93) 92 08/19/19 04:00 97.8 74 18 140/77 (98) 98 08/19/19 00:00 97.8 77 18 140/78 (98) 98 08/18/19 21:00 Room Air 08/18/19 20:00 98.2 76 18 148/84 (105) 96 08/18/19 16:00 98.6 78 18 155/97 (116) 94 08/18/19 12:00 97.3 70 20 145/82 (103) 94 Intake and Output 08/18/19 08/19/19 19:00 07:00 Intake Total 505 ml Output Total 1500 ml Balance -995 ml IV Total 505 ml Output Urine Total 1500 ml Height (Feet): 6 Height (Inches): 1.00 Weight (Pounds): 233 General Appearance: no apparent distress Cardiovascular: normal rate Respiratory/Chest: decreased breath sounds Abdomen: soft Objective no change Ernesto Frost MD Aug 19, 2019 11:05
[2019-08-19] MEDS: Levemir Flexpen SUBQ SCH (11:13)
--- NOTE | 2019-08-19 11:33 | General Progress Note ---
Assessment/Plan Status: progressing Assessment/Plan: S: I can not avoid walking to restroom for number 1 O: Is advised against walking on the affected foot for now . Pain is well controlled . PHYSICAL EXAMINATION: . HEAD AND NECK: multiple molars with plaques, Atraumatic and normocephalic. CHEST: Clear to auscultation. No wheezing. No crackles.HEART: S1 and S2. Regular rate and rhythm. No S3. No S4. ABDOMEN: Soft. No organomegaly.MUSCULOSKELETAL: Positive for bilater Charcot' s foot. Positive for stump of the prior tarsometatarsal resections. open wound in plantar aspect of left foot NEUROLOGIC: The patient is awake, alert, and oriented x3.PSYCHIATRIC: Mood and affect is normal LABORATORY DATA: Dated 08/19/2019 reviewed MRI from 08/13/19 reviewed A/P: 1- Sever Gram negative Sepsis : Resolved 2. Acute cellulitis with or with out Acute OM of left foot. 2- DM- uncontrolled 3. Non compliance with medications 3- Charcot Foot- Left sided 4- HTN 5- Psych 6. Acute on Chronic KD Plan: MRI of the foot reviewed current culture targeted abx Will monitor Cr level.[place] zone in terms of medical necessity for initiation of HD. Will monitor Cr for now\ No surgical intervention in foot. I will c/w current abx notes from ID reviewed. Podiatry and wound mgt fu as o/p Subjective Allergies: Coded Allergies: METFORMIN (Verified Allergy, Unknown, 10/09/18) Vomiting Objective Last 24 Hour Vital Signs Date Time Temp Pulse Resp B/P (MAP) Pulse Ox O2 Delivery O2 Flow Rate FiO2 08/19/19 09:00 Room Air 08/19/19 08:00 68 134/73 (93) 92 08/19/19 04:00 97.8 74 18 140/77 (98) 98 08/19/19 00:00 97.8 77 18 140/78 (98) 98 08/18/19 21:00 Room Air 08/18/19 20:00 98.2 76 18 148/84 (105) 96 08/18/19 16:00 98.6 78 18 155/97 (116) 94 08/18/19 12:00 97.3 70 20 145/82 (103) 94 Intake and Output 08/18/19 08/19/19 19:00 07:00 Intake Total 505 ml Output Total 1500 ml Balance -995 ml IV Total 505 ml Output Urine Total 1500 ml Height (Feet): 6 Height (Inches): 1.00 Weight (Pounds): 233 Dexter Haas MD Aug 19, 2019 11:33
--- NOTE | 2019-08-19 12:00 | NUR ---
NURSE NOTES: Patient left facility with PICC line with order for continuation of IV ABX. PICC line dressing intact, no s/s of infiltration on PICC line insertion site. No new skin issue. All belongings accounted for. No s/s of hypo/hyperglycemia.
--- NOTE | 2019-08-19 12:00 | NUR ---
NURSE NOTES: Patient drowsy but verbally responsive and coherent. Belongings checked, complete and given to the patient. Picture of right foot taken, dressing changed. No new skin issues noted. Patient to be discharged to [facility]. Discharge instructions given. IV fluid disconnected. ID band removed. Discharged via ambulance on a gurney accompanied by ambulance personnel.
--- NOTE | 2019-08-19 12:15 | Progress Note ---
DATE: 08/18/2019 SUBJECTIVE: The patient is in bed . The patient is awaiting placement. The patient is better overall, improving. Pain is controlled. MENTAL STATUS EXAMINATION: The patient is alert and oriented x3. Mood is neutral to dysphoric. Affect is flat. Thought process is concrete. Thought content, positive for paranoid ideation. Cognition is impaired. Insight and judgment are impaired. ASSESSMENT: 1. Acute encephalopathy, improving. 2. Psychotic disorder, improving. PLAN: We will continue with current psychotropic medications. Olena Diaz M.D. DR: VIOLA JOB#: [id number] CC:
--- NOTE | 2019-08-20 03:45 | Progress Note ---
DATE: 08/19/2019 SUBJECTIVE: The patient is in bed, in no acute distress. Calm and cooperative. No behavior issues. Answers the questions appropriately. Has episodes of confusion, poor memory. MENTAL STATUS EXAMINATION: Alert and oriented times self, place, and situation. Mood is depressed. Affect is constricted. Congruent with mood. Thought process, linear and goal oriented. Thought content, no suicidal or homicidal ideation. ASSESSMENT: Stable. PLAN: We will continue current medications. No medication changes. Olena Diaz M.D. DR: ALESSIA JOB#: [id number] CC:
--- NOTE | 2019-08-20 09:35 | CDS Physician Query ---
Clarification is required for compliance, coding accuracy, and to reflect severity of illness for this patient Dear Dr. Dexter Haas Date: 08/18/2019 Knockup Worker/CDS Name: Carlita Lizama Clinical Documentation states: HNP: 48-year-old male with a history of uncontrolled diabetes with Charcot foot...Severe Sepsis 08/14 cardiology note: Elevated troponin I level in this patient. Multiple etiologies could be troponin leakage due to renal failure versus type 2 non-ST elevation myocardial infarction or demand ischemia in the setting of coronary artery disease or due to underlying infection. MPI stress test is postponed till tomorrow. Echo with normal LV systolic and diastolic function and LVEF ~55% , continue aspirin and atorvastatin. Please respond to the following question: Is there a diagnosis specific to these symptoms or values? If so please state below. PHYSICIAN RESPONSE: [] NSTEMI [] Type 2 NV due to sepsis [] Demand ischemia [] Other: [] Clinically Undetermined Present on Admission: [] Yes [] No [] Clinically Undetermined Physician signature Date Please also document in your Progress Notes and/or Discharge Summary and indicate if the condition was present on admission. JOVON
--- NOTE | 2019-08-21 12:59 | Discharge Summary ---
Discharge Summary Discharge Summary _ DATE OF ADMISSION: 08/10/2019 DATE OF DISCHARGE: 08/19/2019 DISCHARGED BY: Dr. Haas REASON FOR ADMISSION: 48 years old male with past medical history of uncontrolled diabetes secondary to noncompliance, hypertension, chronic renal insufficiency , chronic osteomyelitis of the foot/ Charcot joint ( had PICC line for IV antibiotic , which was removed 2 days ago )presented with chief complaint of fever and blood sugar out of control for 1 day. Patient also reported drainage from his left foot. Fever 103 at the facility. Patient reported that he was walking more than usual. He denied any trauma or injury to the foot. No nausea or vomiting. No diarrhea. No cough or congestion. Upon evaluation blood pressure was on the low side 82/54 , pulse oximetry was 92 % on room air, but patient was afebrile. Laboratory work-up revealed leukocytosis WBC 11.5, hemoglobin 12, hematocrit 26.6. Platelet count 254. Stable coagulation profile. BUN 34, creatinine 2.6. Sodium 129. Glucose 342. Lactic acid 1.5. Stable LFT. Left foot x-ray revealed mild deformity in the midfoot likely postsurgical posttraumatic changes. No gross acute bony abnormality. Status post resection of the fifth phalange. EKG revealed sinus rhythm, no acute ischemic changes. In the past patient grew E. coli. Patient received Zosyn and vancomycin in emergency department. Blood pressure improved after IV fluids. Patient subsequently admitted for further management. CONSULTANTS: business intelligence architect Dr. Augustine ID specialist sample builder Dr. Frost surgery Dr. Rush director medical economics Dr. BARRIOS bleach packer Dr. Bright psychiatrist [facility] COURSE: Patient admitted to medical surgical floor. Patient started on empiric antibiotic as per ID specialist recommendation. longterm facility medications were resumed. Patient was counseled to comply with medication regimen. On 08/11 troponin was elevated 0.246 . Echocardiogram revealed preserved ejection fraction , no evidence of wall motion abnormality. Second troponin minimally elevated as well. Per business intelligence architect , elevated troponin in this patient can be due to multiple etiologies, including troponin leak due to renal failure versus type II NSTEMI or demand ischemia in the setting of coronary artery disease or due to underlying infection. Myocardial perfusion test stress test was postponed . Patient was on aspirin and statin. Myocardial perfusion stress test was recommended to be done as an outpatient. Venous duplex bilateral lower extremity revealed no evidence of acute DVT. Renal ultrasound demonstrated normal bilateral kidney echogenicity. No hydronephrosis. No focal abnormalities. Chest x-ray showed no acute cardiopulmonary pathology. MRI of the right foot revealed extensive destruction of the mid foot likely on the basis of Charcot foot . The presence of superimposed osteomyelitis , involving the area of the midfoot, anterior hindfoot and posterior forefoot was not excludable.Charcot foot with superimposed degenerative arthrosis and deformity. Prominent plantar surface ulceration without compelling evidence for acute osteomyelitis, involving the forefoot, midfoot or hindfoot. 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 MRI of the left ankle reveal advanced Charcot foot with superimposed degenerative arthrosis and deformity. Prominent plantar surface ulceration without compelling evidence for acute osteomyelitis involving the forefoot, midfoot or hindfoot. MRI of the right ankle revealed extensive destruction of the midfoot likely on the basis of neuropathic disease/Charcot foot. The presence of superimposed osteomyelitis involving the area of the midfoot, anterior and posterior forefoot was not excludable. Blood culture revealed Citrobacter. Wound culture revealed Citrobacter and Klebsiella. Urine culture was negative. Repeated blood culture on 08/13 were negative. PICC line was placed for long-term IV antibiotics. Per ID specialist , bacteremia was likely due to left foot chronic wound infection. Patient will require treatment with meropenem for total of 6-week . Campus Coordinator seen and evaluated patient. Patient with evidence of bilateral foot Charcot deformity and left plantar ulcer with purulent drainage. Per bleach packer, no acute surgical intervention was required at this time. Campus Coordinator recommended continue local wound care, which was provided as per general surgeon recommendations and IV antibiotics. Renal parameters and electrolytes were closely monitored. Electrolytes corrected as needed. Nephrotoxic's were avoided. Initially creatinine trended up and then started to go down: prior to discharge 1.9. Renal ultrasound was stable. No evidence of hydronephrosis, no evidence of medical renal disease. Renal disease likely due to diabetic nephropathy, sample builder recommended to avoid nephrotoxics. Patient refused Espinal catheter. Postvoid residual was checked with bladder scan was zero. Patient was encouraged oral hydration. Urine studies were done. Hemoglobin and hematocrit were closely monitored with goal to keep hemoglobin above 7. Prior to discharge hemoglobin 9.4 , hematocrit 30.2. Anemia work-up was consistent with anemia chronic disease, ferritin 1020. Space Officer followed for uncontrolled blood sugar. Hemoglobin A1c 10.3 , clearly not at goal. Blood sugar was managed with long-acting Levemir twice a day, pre-meal short acting NovoLog/ hold if not eating/, and sliding scale of insulin as needed. Patient was encouraged to comply with the medication regimen as outpatient. Patient was provided with diabetic diet. Supportive care provided. DVT and GI prophylaxis provided. Flomax continued. Psychiatrist seen and evaluated patient . Psychiatrist diagnosed patient with acute encephalopathy and altered mental status. psychiatric medication regimen was optimized as per psychiatrist recommendations and doses were down titrated and hold when sedated. Reality orientation and supportive therapy provided. Acute encephalopathy resolved, likely due to infectious process. Patient was clinically improving. FINAL DIAGNOSES: Sepsis with Citrobacter bacteremia due to left food wound infection Acute cellulitis left lower extremity Acute on chronic osteomyelitis Diabetic foot infection/left plantar ulcer with purulent drainage Acute encephalopathy- Elevated troponin, probably troponin leak due to renal failure Hypertension Uncontrolled diabetes mellitus Acute kidney injury on chronic kidney disease Diabetic nephropathy Anemia Electrolyte imbalance Bilateral foot Charcot deformity Major depressive disorder recurrent moderate Psychotic disorder Noncompliance with medication DISCHARGE MEDICATIONS: See Medication Reconciliation list. DISCHARGE INSTRUCTIONS: Patient was discharged to the [facility] facility. Follow up with medical doctor at the facility. I have been assigned to dictate discharge summary for this account. I was not involved in the patient's management. Trang Hillman NP Aug 21, 2019 12:59
--- NOTE | 2019-08-21 20:56 | Cardiology Report ---
APPROVED REPORT EXAM: Two-dimensional and M-mode echocardiogram with Doppler and color Doppler. INDICATION DIZZINESS M-Mode DIMENSIONS IVSd1.1 (0.7-1.1cm)Left Atrium (MM)1.7 (1.6-4.0cm) LVDd2.6 (3.5-5.6cm)Aortic Root3.9 (2.0-3.7cm) PWd1.0 (0.7-1.1cm)Aortic Cusp Exc.1.6 (1.5-2.0cm) IVSs1.0 cm LVDs2.4 (2.5-4.0cm) PWs1.0 cm Technically difficult study due to combative patient . Normal left ventricular chamber size, systolic function and wall motion to extent visualized. Left ventricular ejection fraction estimated to be 60-65%. Mild left atrial enlargemnt . Right cardiac chamber sizes are within normal limits. Focal aortic valve sclerosis with adequate cusp excursion. Mildly thickened mitral valve leaflets with normal excursion. Mild mitral annulus and aortic root calcification. Pulmonic valve not well visualized. A color flow and spectral Doppler study was performed and revealed: No aortic insufficiency . Mitral inflow indicates normal left ventricular diastolic function. Trace mitral regurgitation. Trace tricuspid regurgitation. Tricuspid systolic velocities suggests peak right ventricular systolic pressure of 10mmHg.
== END 2019-08-19 12:00 | DRG 872 ==
LOC: EDBD 03:45 → EMR 04:03 → 4E 04:11 → EDBEDREQ 04:55 → 2W 08-11 22:32 → 2E 08-12 13:22 → SDSOVERFLO 08-12 15:25 → 2E 08-12 15:29 → SDSOVERFLO 08-15 10:06 → 2E 08-15 10:08 → 4E 08-16 20:39
DX: A41.59 Other Gram-negative sepsis (principal); L03.116 Cellulitis of left lower limb; N17.9 Acute kidney failure, unspecified; F33.1 Major depressive disorder, recurrent, moderate; M86.172 Other acute osteomyelitis, left ankle and foot; R65.20 Severe sepsis without septic shock; E11.21 Type 2 diabetes mellitus with diabetic nephropathy; E11.65 Type 2 diabetes mellitus with hyperglycemia; E11.621 Type 2 diabetes mellitus with foot ulcer; L97.529 Non-pressure chronic ulcer of other part of left foot with unspecified severity; Z91.19 Patient's noncompliance with other medical treatment and regimen; E11.610 Type 2 diabetes mellitus with diabetic neuropathic arthropathy; I12.9 Hypertensive chronic kidney disease with stage 1 through stage 4 chronic kidney disease, or unspecified chronic kidney disease; E11.22 Type 2 diabetes mellitus with diabetic chronic kidney disease; N18.9 Chronic kidney disease, unspecified; R74.8 Abnormal levels of other serum enzymes; Z88.8 Allergy status to other drugs, medicaments and biological substances; D64.9 Anemia, unspecified; E87.8 Other disorders of electrolyte and fluid balance, not elsewhere classified; E11.42 Type 2 diabetes mellitus with diabetic polyneuropathy; I73.9 Peripheral vascular disease, unspecified; F25.9 Schizoaffective disorder, unspecified; F29 Unspecified psychosis not due to a substance or known physiological condition
CPT/HCPCS: 36415; 36569; 71045; 76770; 76937; 78452; 80048; 80053; 80061; 81001; 82533; 82550; 82607; 82728; 82746; 82962; 82977; 83036; 83540; 83550; 83605; 83735; 83880; 84100; 84300; 84439; 84443; 84481; 84484; 84550; 85007; 85025; 85610; 85730; 86140; 86706; 86707; 86803; 87040; 87070; 87081; 87086; 87181; 87205; 89050; 93005; 93017; 93306; 93970; 96365; 96366; 96368; 99285; J1815; J2405; J2785; S5561

== ENCOUNTER 2019-12-09 01:50 | Inpatient (IN) | payer MEDICARE, OTHER ==
[~2019-12-09] VITALS: Ht 180.3 cm; Wt 94.3 kg
[~2019-12-09 01:50] MED LIST changes: +AZOPT10 ML OP; +AZOPT10 ML RIGHT EYE; +COMBIGAN EYE DRO5 ML OP; +COMBIGAN EYE DRO5 ML RIGHT EYE; +DAPTOMYCIN350 MG IV; +GABAPENTIN300 MG ORAL; +HUMULIN R100 UNIT/1 SUBQ; +HYDRALAZINE HCL25 M1 ORAL; +LOTEMAX1 DROP RIGHT EYE; +LUMIGAN2.5 ML RIGHT EYE; +MERREM1 GM IV; +NEURONTIN300 MG ORAL; +NORCO 5-325 TA1 EACH ORAL; +NOVOLOG100 UNIT/5 SUBQ
--- NOTE | 2019-12-09 02:00 | NUR ---
ED Nurse Note: Recieved pt BIBA from SNF with c/o severe, nausea and vomiting with abdominal pain x 3 days, pt is actively vomiting large amounts of green colored contents, bag is full and filled [address], pt is awake and oriented x 4, pt ahs foot immobilizer on left leg, pt has chronic cellulitis and has been treated for osteomylitis for past 1 year, pt has picc removed from left arm 1 week ago and arm has multiple echymotic areas, pt immeidately gowned and placed on cardiac monitoring, pt also asking for dilaudid pain meds, informed immediately, will resume care as ordered and closely monitor.
[2019-12-09] MEDS ORDERED: HYDROmorphone 1mg/ml Carpuject IVP ONE ×2 (02:30→05:00)
--- NOTE | 2019-12-09 02:34 | Emergency Room Report ---
History of Present Illness General Chief Complaint: Vomiting Source: Patient Present Illness HPI 49-year-old male presents ED for evaluation. Brought in by EMS from custodial facility. Reported nausea and vomiting for the last 3 days. Actively vomiting in ambulance bay. Denies fevers or chills. Denies chest pain. States that he vomits like this when he has an infection. Currently being treated for osteomyelitis in his feet. Had a PICC line until 1 week ago. Denies cough sore throat. No other aggravating relieving factors. Denies any other associated symptoms Allergies: Coded Allergies: METFORMIN (Verified Allergy, Unknown, 10/09/18) Vomiting Patient History Past Medical History: DM, COPD Past Surgical History: none Pertinent Family History: none Social History: Denies: smoking, alcohol use, drug use Immunizations: UTD Reviewed Nursing Documentation: PMH: Agreed; PSxH: Agreed Nursing Documentation-PMH Hx Cardiac Problems: No Hx Hypertension: Yes Hx COPD: Yes Hx Diabetes: Yes Hx Cancer: No Hx Gastrointestinal Problems: No Hx Neurological Problems: No Review of Systems All Other Systems: negative except mentioned in HPI Physical Exam Vital Signs Date Time Temp Pulse Resp B/P (MAP) Pulse Ox O2 Delivery O2 Flow Rate FiO2 12/09/19 01:51 98.6 94 22 116/79 (91) 97 Room Air Sp02 EP Interpretation: reviewed, normal General Appearance: no apparent distress, alert, GCS 15, non-toxic Head: normocephalic, atraumatic Eyes: bilateral eye normal inspection, bilateral eye PERRL ENT: hearing grossly normal, normal pharynx, no angioedema, normal voice Neck: full range of motion, supple/symm/no masses Respiratory: chest non-tender, lungs clear, normal breath sounds, speaking full sentences Cardiovascular #1: regular rate, rhythm, no edema Cardiovascular #2: 2+ carotid (R), 2+ carotid (L), 2+ radial (R), 2+ radial (L) , 2+ dorsalis pedis (R), 2+ dorsalis pedis (L) Gastrointestinal: normal bowel sounds, non tender, soft, non-distended, no guarding, no rebound Rectal: deferred Genitourinary: normal inspection, no CVA tenderness Musculoskeletal: back normal, gait/station normal, non-tender 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, 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, oriented x3, sensory intact, responsive, speech normal Psychiatric: judgement/insight normal, memory normal, mood/affect normal, no suicidal/homicidal ideation Reflexes: 3+ bicep (R), 3+ bicep (L), 3+ tricep (R), 3+ tricep (L), 3+ knee (R) , 3+ knee (L) Skin: other - see nursing skin notes Lymphatic: no adenopathy Medical Decision Making Diagnostic Impression: Primary Impression: Hyperglycemia Additional Impressions: Osteomyelitis of foot Qualified Codes: M86.9 - Osteomyelitis, unspecified Renal failure (ARF), acute on chronic Qualified Codes: N17.9 - Acute kidney failure, unspecified; N18.9 - Chronic kidney disease, unspecified ER Course Hospital Course 49 yo M presents with multiple episodes of vomiting. h/o osteomyelitis. h/o diabetes Differential diagnoses include: Pneumonia, UTI, sepsis, dehydration, DKA Clinical course Patient placed on stretcher. On ekg monitor with stable vitals are ED course. After initial history and physical, I ordered labs, IV fluids, EKG, chest x-ray, blood cultures, UA. Labs - BUN/Cr elevated, no leukocytosis, lactic > 3, glucose > 300, no evidence of DKA. CXR - no acute process concern for osteomyelitis as source. wound culture obtained. given 30cc/kg fluid bolus. given insulin. Abx given. Case discussed with Dr Haas and they agreed to admit patient to their service for further care and support I feel this is a highly complex case requiring extensive working including EKG/ Rhythm strip, Xray/CT/US, Blood/urine lab work, repeat exams while in ED, and administration of strong opiates/narcotics for pain control, admission to hospital or close patient follow up. Diagnosis - hyperglycemia, osteomyelitis of foot, ARF Patient admitted to floor in serious condition Labs Test 12/09/19 02:00 12/09/19 04:20 White Blood Count 10.5 K/UL (4.8-10.8) Red Blood Count 6.43 M/UL (4.70-6.10) Hemoglobin 18.0 G/DL (14.2-18.0) Hematocrit 53.6 % (42.0-52.0) Mean Corpuscular Volume 83 FL (80-99) Mean Corpuscular Hemoglobin 28.0 PG (27.0-31.0) Mean Corpuscular Hemoglobin Concent 33.6 G/DL (32.0-36.0) Red Cell Distribution Width 13.1 % (11.6-14.8) Platelet Count 271 K/UL (150-450) Mean Platelet Volume 5.9 FL (6.5-10.1) Neutrophils (%) (Auto) % (45.0-75.0) Lymphocytes (%) (Auto) % (20.0-45.0) Monocytes (%) (Auto) % (1.0-10.0) Eosinophils (%) (Auto) % (0.0-3.0) Basophils (%) (Auto) % (0.0-2.0) Sodium Level 131 MMOL/L (136-145) Potassium Level 5.9 MMOL/L (3.5-5.1) 5.0 MMOL/L (3.5-5.1) Chloride Level 94 MMOL/L (98-107) Carbon Dioxide Level 24 MMOL/L (21-32) Anion Gap 14 mmol/L (5-15) Blood Urea Nitrogen 38 mg/dL (7-18) Creatinine 3.4 MG/DL (0.55-1.30) Estimat Glomerular Filtration Rate 19.2 mL/min (>60) Glucose Level 373 MG/DL (74-106) Lactic Acid Level 3.20 mmol/L (0.4-2.0) Calcium Level 9.6 MG/DL (8.5-10.1) Magnesium Level 2.1 MG/DL (1.8-2.4) Total Bilirubin 0.4 MG/DL (0.2-1.0) Aspartate Amino Transf (AST/SGOT) 49 U/L (15-37) Alanine Aminotransferase (ALT/SGPT) 65 U/L (12-78) Alkaline Phosphatase 85 U/L (46-116) Total Protein 10.0 G/DL (6.4-8.2) Albumin 4.8 G/DL (3.4-5.0) Globulin 5.2 g/dL Albumin/Globulin Ratio 0.9 (1.0-2.7) Acetone Level (NEGATIVE) Chest X-Ray Diagnostic Results Chest X-Ray Diagnostic Results : Chest X-Ray Ordered: Yes # of Views/Limited/Complete: 1 View Indication: Other EP Interpretation: Yes Interpretation: no consolidation, no effusion, no pneumothorax, no acute cardiopulmonary disease Impression: No acute disease Electronically Signed by: Electronically signed by Rogelio Munson MD Last Vital Signs Date Time Temp Pulse Resp B/P (MAP) Pulse Ox O2 Delivery O2 Flow Rate FiO2 12/09/19 01:51 98.6 94 22 116/79 (91) 97 Room Air Status: improved Disposition: ADMITTED INPATIENT Condition: Serious Rogelio Munson MD Dec 09, 2019 02:34
[2019-12-09 02:35] LABS: HEMATOCRIT 53.6 % (42.0-52.0); MEAN CORPUSCULAR VOLUME 83 FL (80-99); PLATELET COUNT 271 K/UL (150-450); RED BLOOD COUNT 6.43 M/UL (4.70-6.10); RED CELL DISTRIBUTION WIDTH 13.1 % (11.6-14.8); WHITE BLOOD COUNT 10.5 K/UL (4.8-10.8)
[2019-12-09 03:07] LABS: ALANINE AMINOTRANSFERASE 65 U/L (12-78); ALBUMIN 4.8 G/DL (3.4-5.0); ALBUMIN/GLOBULIN RATIO 0.9 (1.0-2.7); ALKALINE PHOSPHATASE 85 U/L (46-116); ANION GAP 14 mmol/L (5-15); ASPARTATE AMINO TRANSFERASE 49 U/L (15-37); BILIRUBIN,TOTAL 0.4 MG/DL (0.2-1.0); BLOOD UREA NITROGEN 38 mg/dL (7-18); CALCIUM 9.6 MG/DL (8.5-10.1); CARBON DIOXIDE 24 MMOL/L (21-32); CHLORIDE 94 MMOL/L (98-107); CREATININE 3.4 MG/DL (0.55-1.30); SODIUM 131 MMOL/L (136-145)
[2019-12-09 03:18] LABS: POTASSIUM 5.9 MMOL/L (3.5-5.1)
[2019-12-09 03:30] VITALS: BP 162/83
[2019-12-09] MEDS ORDERED: Insulin Human Regular 100units/ml 3ml IV ONE (03:30)
--- NOTE | 2019-12-09 03:30 | NUR ---
ED Nurse Note: PT RESTING QUIETLY IN BED, AWAKE AND ALERT, MEDICATED FOR PAIN, MEDS EFFECTIVE, IV SITE PATENT WITH FLUIDS INFUSING ORDERED, PT BOOT REMOVED FROM LEFT LEG AND MD SHOWN WOUNDS ON BOTTOM OF BOTH FEET, PHOTOS TAKEN AND WOUND CULTURES, PT IS TO BE ADMITTED TO HOSPITAL, WILL PREPARE FOR ADMISSION AND CONTINUE TO CLOSELY MONITOR.
[2019-12-09] MEDS ORDERED: Piperacillin/Tazobactam 3.375 GM in NS 110 ML IVPB ONE (04:15)
[2019-12-09 05:00] VITALS: BP 151/86
--- NOTE | 2019-12-09 05:20 | NUR ---
ED Nurse Note: PT BEING PREPARED FOR ADMIT, REPORT CALLED TO FLOOR NURSE, PT ALSO RE-MEDICATED FOR PAIN, PT HAS ALL BELONGINGS, PT TAKEN TO UNIT VIA GURNEY WITH [facility], NAD NOTED DURING PT TRANSPORT.
--- NOTE | 2019-12-09 05:58 | NUR ---
NURSE NOTES: Received patient from ED via gurney, awake, alert, oriented, able to make his needs known, IV site is clean dry and intact, oriented to the room, call light is within reach, bed is lowered, locked and alarm is on. Belongings list bees reviewed, signed, items are accounted for. Will continue to monitor for comfort and safety.
--- NOTE | 2019-12-09 06:07 | NUR ---
Called MD for admit orders.
[2019-12-09] MEDS ORDERED: Albuterol/Ipratropium 3ml neb HHN PRN (06:30)
[2019-12-09] MEDS ORDERED: HYDROcodone/Acetamin 5/325 tab ORAL PRN ×2 (06:45→07:00)
[2019-12-09] MEDS ORDERED: Milk of Magnesia 30ml Ud ORAL PRN (06:45)
[2019-12-09] MEDS ORDERED: HydrALAZINE 25mg tab ORAL PRN (06:45)
--- NOTE | 2019-12-09 07:50 | NUR ---
NURSE NOTES: Recvd pt. Pt is AOX4. Pt is on room air with no sign of sob or resp distress. Pt c/o abdominal pain, Dr Haas aware. IV is c/d/i and running NS @ 50cc/hr. Bed in lowest position, call light with reach, will continue with plan of care
[2019-12-09 08:00] VITALS: BP 168/102
[2019-12-09] MEDS ORDERED: HYDROcodone/Acetamin 10/325 tab ORAL PRN (08:45)
[2019-12-09] MEDS ORDERED: Docusate 100mg cap ORAL SCH (09:00)
[2019-12-09] MEDS: Heparin 5000 units/ml inj SUBQ SCH ×2 (09:00→20:54)
[2019-12-09] MEDS ORDERED: Levemir Flexpen SUBQ SCH (09:00)
[2019-12-09] MEDS ORDERED: NovoLOG Insulin Flexpen SUBQ SCH ×2 (09:00→11:50)
[2019-12-09] MEDS ORDERED: Multivitamin w/Minerals tab ORAL SCH (09:00)
--- NOTE | 2019-12-09 09:43 | Podiatric Progress Note ---
Assessment/Plan Patient Walker Chahal is a 49 year old male who was admitted on Dec 09, 2019 at 03:24 with Problems: (1) Diabetic nephropathy (2) Foot ulcer due to secondary DM (3) Charcot foot due to diabetes mellitus (4) Osteomyelitis of foot (5) Renal failure (ARF), acute on chronic (6) Poorly controlled diabetes mellitus Assessment/Plan The ulceration noted to be stable orders were written for local wound care. Rx xray Rx vascular consult Patient will be followed. Subjective Reason for consult Dm foot ulcer Allergies: Coded Allergies: METFORMIN (Verified Allergy, Unknown, 10/09/18) Vomiting Subjective well known patient with Hx of Dm foot ulcer with underlying Osteomyelitises and Charcot foot deformity, seen by bedside in [facility]. Patient states he has been seen by his Rotary Helper Dr. Portillo who sees him on weekly bases. He states Dr. Portillo diagnosed him with Osteo and did surgery to scrape the bone. He was admitted with N/V and foot pain along with + blood cultures, elevated lactic acid and Wbc. Current labs show lactic acid and wbc wnl. Objective Exam Last 24 Hour Vital Signs Date Time Temp Pulse Resp B/P (MAP) Pulse Ox O2 Delivery O2 Flow Rate FiO2 12/09/19 08:00 98.4 84 22 168/102 (124) 98 12/09/19 06:07 Room Air 12/09/19 05:45 98.6 83 18 151/86 99 Room Air 12/09/19 05:00 98.6 83 18 151/86 99 Room Air 12/09/19 03:30 98.6 81 22 162/83 99 Room Air 12/09/19 03:00 98.6 12/09/19 02:00 94 22 Room Air 12/09/19 01:51 98.6 94 22 116/79 (91) 97 Room Air Laboratory Tests Test 12/09/19 02:00 12/09/19 04:20 White Blood Count 10.5 K/UL (4.8-10.8) Red Blood Count 6.43 M/UL (4.70-6.10) H Hemoglobin 18.0 G/DL (14.2-18.0) Hematocrit 53.6 % (42.0-52.0) H Mean Corpuscular Volume 83 FL (80-99) Mean Corpuscular Hemoglobin 28.0 PG (27.0-31.0) Mean Corpuscular Hemoglobin Concent 33.6 G/DL (32.0-36.0) Red Cell Distribution Width 13.1 % (11.6-14.8) Platelet Count 271 K/UL (150-450) Mean Platelet Volume 5.9 FL (6.5-10.1) L Neutrophils (%) (Auto) % (45.0-75.0) Lymphocytes (%) (Auto) % (20.0-45.0) Monocytes (%) (Auto) % (1.0-10.0) Eosinophils (%) (Auto) % (0.0-3.0) Basophils (%) (Auto) % (0.0-2.0) Sodium Level 131 MMOL/L (136-145) L Potassium Level 5.9 MMOL/L (3.5-5.1) H 5.0 MMOL/L (3.5-5.1) Chloride Level 94 MMOL/L (98-107) L Carbon Dioxide Level 24 MMOL/L (21-32) Anion Gap 14 mmol/L (5-15) Blood Urea Nitrogen 38 mg/dL (7-18) H Creatinine 3.4 MG/DL (0.55-1.30) H Estimat Glomerular Filtration Rate 19.2 mL/min (>60) Glucose Level 373 MG/DL (74-106) H Lactic Acid Level 3.20 mmol/L (0.4-2.0) H 1.70 mmol/L (0.66-2.22) Calcium Level 9.6 MG/DL (8.5-10.1) Magnesium Level 2.1 MG/DL (1.8-2.4) Total Bilirubin 0.4 MG/DL (0.2-1.0) Aspartate Amino Transf (AST/SGOT) 49 U/L (15-37) H Alanine Aminotransferase (ALT/SGPT) 65 U/L (12-78) Alkaline Phosphatase 85 U/L (46-116) Total Protein 10.0 G/DL (6.4-8.2) H Albumin 4.8 G/DL (3.4-5.0) Globulin 5.2 g/dL Albumin/Globulin Ratio 0.9 (1.0-2.7) L Acetone Level (NEGATIVE) Microbiology Date/Time Source Procedure Growth Status 12/09/19 05:10 Rectum Received Exam Narrative callapse arch noted b/l with jennifer prominence consistent with Charcot deformity at the lis franc area b/l. Vascular Pulses: 0 dorsalis pedis (R), 0 dorsalis pedis (L), 0 posterior tibial (R), 0 posterior tibial (L) Edema: 1+ (<2mm) foot (L), 1+ (<2mm) foot (R) Neurological Light touch: decreased sensation right, decreased sensation left Dermatological Dermatological Narrative ulceration noted to b/l feet midfoot sub tarsal area. no drainage, discharge, pus,mal odor, cellulites, necrosis noted. probs to bone with mild undermining. ulceration is noted to be 2 cm by .5 cm in diameter. Omar Bright DPM Dec 09, 2019 09:43
[2019-12-09] MEDS: NovoLOG Insulin Flexpen SUBQ SCH ×4 (09:57→20:54)
[2019-12-09] MEDS: Morphine Sulfate 2mg/ml Inj(IV/IM USE ONLY) IVP PRN (09:59)
[2019-12-09] MEDS ORDERED: Vancomycin 1.5gm/NS Premix q24h IVPB SCH (10:00)
[2019-12-09] MEDS: Levemir Flexpen SUBQ SCH ×2 (10:05→20:54)
--- NOTE | 2019-12-09 10:58 | Consultation ---
History of Present Illness General Date patient seen: Dec 09, 2019 Time patient seen: 10:56 Chief Complaint: Vomiting Referring physician: Dr. Haas Reason for Consultation: Sepsis Present Illness HPI 49 y/o male w/ hx DM, osteomyelitis admitted with several days of intractable nausea and vomiting found to be septic on admission. Feels esophagus is uncomfortable from all the vomiting. Slight cough. No shortness of breath or chest pain. Allergies: Coded Allergies: METFORMIN (Verified Allergy, Unknown, 10/09/18) Vomiting Medication History Scheduled Ascorbic Acid* (Vitamin C*), 250 MG ORAL DAILY, (Reported) Atorvastatin Calcium* (Lipitor*), 40 MG ORAL BEDTIME, (Reported) Bimatoprost (Lumigan), 1 DROP RIGHT EYE QHS, (Reported) Brimonidine Tartrate/Timolol (Combigan Eye Drops), 5 ML OP BID, (Reported) Brimonidine Tartrate/Timolol (Combigan Eye Drops), 5 ML RIGHT EYE BID, (Reported ) Brinzolamide (Azopt), 10 ML OP BID, (Reported) Brinzolamide (Azopt), 10 ML RIGHT EYE BID, (Reported) Docusate Sodium* (Docusate Sodium*), 100 MG ORAL TWICE A DAY, (Reported) Escitalopram Oxalate* (Lexapro*), 10 MG ORAL DAILY, (Reported) Gabapentin (Neurontin), 600 MG ORAL AT 10PM, (Reported) Gabapentin* (Gabapentin*), 300 MG ORAL TWICE A DAY, (Reported) Insulin Aspart (Novolog), 30 UNITS SUBQ TID, (Reported) Insulin Aspart (Novolog Flexpen), 6 UNITS SUBQ NOVOTIAC Insulin Detemir (Levemir Flexpen), 70 UNITS SUBQ BID Insulin Detemir (Levemir Flexpen), 30 UNITS SUBQ Q12HR Loteprednol Etabonate (Lotemax), 1 DROP RIGHT EYE BID, (Reported) Meropenem (Merrem), 1 GM IV EVERY 12 HOURS, (Reported) Multivitamin With Minerals (Multivitamins With Minerals*), 1 TAB ORAL BID, ( Reported) Omeprazole (Omeprazole), 40 MG ORAL DAILY, (Reported) Quetiapine Fumarate* (Seroquel*), 100 MG ORAL TWICE A DAY, (Reported) Ranitidine HCl (Ranitidine HCl), 150 MG PO BID, (Reported) Scheduled PRN Acetaminophen* (Acetaminophen 325MG Tablet*), 650 MG ORAL Q4H PRN for Mild Pain (Pain Scale 1-3), (Reported) Acetaminophen* (Acetaminophen 325MG Tablet*), 650 MG ORAL Q4H PRN for Mild Pain/ Temp > 100.5, (Reported) Bisacodyl (Bisacodyl), 10 MG RC DAILY PRN for Constipation, (Reported) Dextromethorphan Hbr/B-Skyler (Cepacol Sorethroat-Cough Madison*), 1 LOZENGE ORAL Q6H PRN for For Cough, (Reported) Hydralazine Hcl* (Hydralazine Hcl*), 25 MG ORAL Q4H PRN Hydrocodone Bit/Acetaminophen 5-325* (Harbert 5-325*), 1 TAB ORAL Q8H PRN for For Pain, (Reported) Ibuprofen* (Motrin*), 600 MG ORAL Q6H PRN for For Pain, (Reported) Loperamide Hcl (Loperamide), 2 MG PO Q4HR PRN for Diarrhea, (Reported) Magnesium Hydroxide* (Milk Of Magnesia*), 30 ML ORAL DAILY PRN for Constipation, (Reported) Na Phos,M-B/Na Phos,Di-Ba* (Fleet Enema*), 133 ML RECTAL DAILY PRN for Constipation, (Reported) Ondansetron* (Zofran*), 4 MG ORAL Q8HR PRN for Nausea & Vomiting, (Reported) Miscellaneous Medications Insulin Regular, Human (Humulin R), 0 SUBQ, (Reported) Patient History History Provided By: Patient Healthcare decision maker Resuscitation status Full Code Advanced Directive on File No Past Medical/Surgical History Past Medical/Surgical History: (1) Anxiety disorder (2) Osteomyelitis of ankle or foot, left, acute (3) MDD (major depressive disorder), recurrent episode, moderate (4) Gambling disorder, episodic, moderate (5) Diabetic nephropathy (6) Poorly controlled diabetes mellitus (7) Charcot foot due to diabetes mellitus Review of Systems All Other Systems: negative except mentioned in HPI Physical Exam General Appearance: no apparent distress, alert HEENT: mucous membranes moist, EOMI, pharynx normal Neck: supple Respiratory/Chest: lungs clear Cardiovascular/Chest: normal rate, regular rhythm Abdomen: non tender, soft Extremities: normal range of motion 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 Last 24 Hour Vital Signs Date Time Temp Pulse Resp B/P (MAP) Pulse Ox O2 Delivery O2 Flow Rate FiO2 12/09/19 10:31 98.4 12/09/19 09:00 Room Air 12/09/19 08:00 98.4 84 22 168/102 (124) 98 12/09/19 06:07 Room Air 12/09/19 05:45 98.6 83 18 151/86 99 Room Air 12/09/19 05:00 98.6 83 18 151/86 99 Room Air 12/09/19 03:30 98.6 81 22 162/83 99 Room Air 12/09/19 03:00 98.6 12/09/19 02:00 94 22 Room Air 12/09/19 01:51 98.6 94 22 116/79 (91) 97 Room Air Intake and Output 12/08/19 12/09/19 19:00 07:00 Output Total 0 ml Balance 0 ml Output Urine Total 0 ml # Bowel Movements 1 Laboratory Tests Test 12/09/19 02:00 12/09/19 04:20 White Blood Count 10.5 K/UL (4.8-10.8) Red Blood Count 6.43 M/UL (4.70-6.10) H Hemoglobin 18.0 G/DL (14.2-18.0) Hematocrit 53.6 % (42.0-52.0) H Mean Corpuscular Volume 83 FL (80-99) Mean Corpuscular Hemoglobin 28.0 PG (27.0-31.0) Mean Corpuscular Hemoglobin Concent 33.6 G/DL (32.0-36.0) Red Cell Distribution Width 13.1 % (11.6-14.8) Platelet Count 271 K/UL (150-450) Mean Platelet Volume 5.9 FL (6.5-10.1) L Neutrophils (%) (Auto) % (45.0-75.0) Lymphocytes (%) (Auto) % (20.0-45.0) Monocytes (%) (Auto) % (1.0-10.0) Eosinophils (%) (Auto) % (0.0-3.0) Basophils (%) (Auto) % (0.0-2.0) Sodium Level 131 MMOL/L (136-145) L Potassium Level 5.9 MMOL/L (3.5-5.1) H 5.0 MMOL/L (3.5-5.1) Chloride Level 94 MMOL/L (98-107) L Carbon Dioxide Level 24 MMOL/L (21-32) Anion Gap 14 mmol/L (5-15) Blood Urea Nitrogen 38 mg/dL (7-18) H Creatinine 3.4 MG/DL (0.55-1.30) H Estimat Glomerular Filtration Rate 19.2 mL/min (>60) Glucose Level 373 MG/DL (74-106) H Lactic Acid Level 3.20 mmol/L (0.4-2.0) H 1.70 mmol/L (0.66-2.22) Calcium Level 9.6 MG/DL (8.5-10.1) Magnesium Level 2.1 MG/DL (1.8-2.4) Total Bilirubin 0.4 MG/DL (0.2-1.0) Aspartate Amino Transf (AST/SGOT) 49 U/L (15-37) H Alanine Aminotransferase (ALT/SGPT) 65 U/L (12-78) Alkaline Phosphatase 85 U/L (46-116) Total Protein 10.0 G/DL (6.4-8.2) H Albumin 4.8 G/DL (3.4-5.0) Globulin 5.2 g/dL Albumin/Globulin Ratio 0.9 (1.0-2.7) L Acetone Level (NEGATIVE) Microbiology Date/Time Source Procedure Growth Status 12/09/19 05:10 Rectum Received Height (Feet): 5 Height (Inches): 11.00 Weight (Pounds): 220 Medications Current Medications Medications (Trade) Dose Ordered Sig/Aylin Route PRN Reason Start Time Stop Time Status Last Admin Dose Admin Acetaminophen (Tylenol) 650 mg Q4H PRN ORAL Mild Pain/Temp > 100.5 12/09/19 06:45 01/08/20 06:44 Acetaminophen/ Hydrocodone Bitart (Harbert 10/325) 1 tab Q4H PRN ORAL Pain Scale (4-6) 12/09/19 08:45 12/16/19 08:44 Albuterol/ Ipratropium (Albuterol/ Ipratropium) 3 ml Q4H PRN HHN Shortness of Breath 12/09/19 06:30 12/14/19 06:29 Atorvastatin Calcium (Lipitor) 40 mg BEDTIME ORAL 12/09/19 21:00 01/08/20 20:59 Bisacodyl (Dulcolax) 10 mg DAILYPRN PRN RECTAL Constipation 12/09/19 06:45 01/08/20 06:44 Cetylpyridinium Chloride (Cepacol) 1 lozg Q6H PRN ORAL For Cough 12/09/19 06:50 01/08/20 06:49 Dextrose (Dextrose 50%) 25 ml Q30M PRN IV Hypoglycemia 12/09/19 06:30 01/08/20 06:29 Dextrose (Dextrose 50%) 50 ml Q30M PRN IV Hypoglycemia 12/09/19 06:30 01/08/20 06:29 Docusate Sodium (Colace) 100 mg TWICE A DAY ORAL 12/09/19 09:00 01/08/20 08:59 Escitalopram Oxalate (Lexapro) 10 mg DAILY ORAL 12/09/19 09:00 01/08/20 08:59 Gabapentin (Neurontin) 300 mg TID ORAL 12/09/19 09:00 01/08/20 08:59 Heparin Sodium (Porcine) (Heparin 5000 units/ml) 5,000 units EVERY 12 HOURS SUBQ 12/09/19 09:00 01/08/20 08:59 Hydralazine HCl (Apresoline) 25 mg Q4H PRN ORAL SBP>160 12/09/19 06:45 01/08/20 06:44 Insulin Aspart (NovoLOG) BEFORE MEALS AND HS SUBQ 12/09/19 07:00 01/08/20 06:59 12/09/19 09:57 Insulin Detemir (Levemir) 30 units Q12HR SUBQ 12/09/19 10:00 01/08/20 09:59 12/09/19 10:05 Magnesium Hydroxide (Mom) 30 ml DAILYPRN PRN ORAL Constipation 12/09/19 06:45 01/08/20 06:44 Morphine Sulfate (Morphine Sulfate) 2 mg Q8H PRN IVP Severe Pain (Pain Scale 7-10) 12/09/19 08:45 12/16/19 08:44 12/09/19 09:59 Multivitamins Therapeutic (Therapeutic Multivitamin) 1 ea DAILY ORAL 12/09/19 09:00 01/08/20 08:59 Ondansetron HCl (Zofran) 4 mg Q6H PRN IVP Nausea & Vomiting 12/09/19 10:30 01/08/20 10:29 Piperacillin Sod/ Tazobactam Sod 3.375 gm/Sodium Chloride 110 ml @ 27.5 mls/hr EVERY 8 HOURS IVPB 12/09/19 14:00 12/14/19 13:59 Quetiapine Fumarate (SEROqueL) 100 mg TWICE A DAY ORAL 12/09/19 09:00 01/08/20 08:59 12/09/19 09:55 Sodium Chloride 1,000 ml @ 50 mls/hr Q20H IV 12/09/19 10:00 01/08/20 09:59 12/09/19 10:05 Vancomycin HCl (Vanco rx to dose) 1 ea DAILY PRN MISC . 12/09/19 09:00 01/08/20 08:59 Vancomycin/Sodium Chloride 275 ml @ 137.5 mls/ hr ONCE IVPB 12/09/19 10:00 12/09/19 12:00 12/09/19 10:07 Assessment/Plan Assessment/Plan: Problem List: * Intractable nausea/vomiting * Sepsis * Osteomyelitis of foot * uncontrolled DM * cough Plan: * Cont abx * f/u cultures * Monitor volumes * podiatry and vascular f/u * consider GI eval for nausea/vomiting * f/u CXR Dave Mccray MD Dec 09, 2019 10:58
--- NOTE | 2019-12-09 11:14 | Diagnostic Imaging Report ---
Indication: Chest pain Technique: One view of the chest Comparison: 08/13/2019 Findings: Lungs and pleural spaces are clear. Heart size is normal. No significant interim change Impression: No acute process
--- NOTE | 2019-12-09 11:46 | Consultation ---
Consult Note Consult Note asked to evaluate at the request of Dr Haas for renal failure- patient known to me from previous admission When asked patient why is he in hospital, he said: Sepsis ! ER: 49-year-old male presents ED for evaluation. [facility] Reported nausea and vomiting for the last 3 days. Actively vomiting in ambulance bay. Denies fevers or chills. Denies chest pain. States that he vomits like this when he has an infection. Currently being treated for osteomyelitis in his feet. Had a PICC line until 1 week ago. Denies cough sore throat. No other aggravating relieving factors. Denies any other associated symptoms Allergies: METFORMIN (Verified Allergy, Unknown, 10/09/18) Vomiting Past Medical History: DM, COPD Hx Hypertension: Yes Hx COPD: Yes Hx Diabetes: Yes interviewed examined Data reviewed . Assessment/Plan Acute on chronic renal failure- Diabetic Nephropathy DM OOC Anemia Electrolyte imbalance HTN EJ Fx 55% previously Kidney COOPER unremarkable previously IV Protonix Reglan trial Keep BP and BS in check avoid nephrotoxics monitor renal parameters Slow hydrate Urine studies NS bolus as needed Ernesto Frost MD Dec 09, 2019 11:46
--- NOTE | 2019-12-09 11:57 | History & Physical ---
History and Physical History & Physicial HISTORY OF PRESENT ILLNESS: The patient is a 49-year-old male with a history of uncontrolled diabetes with Charcot foot, who was referred from the shelter facility with the concern of sepsis. Patient had been vomiting for last couple of day. again, The patient reportedly is noncompliant with the diet. The patient reportedly had been particularly noncompliant with low sugar diet . Again, he had been reportedly overs-stayed out of pass visits in multiple occasions SOCIAL HISTORY: The patient denies history of smoking or alcohol abuse. PAST MEDICAL AND SURGICAL HISTORY: Including but not limited to uncontrolled diabetes, hypertension, noncompliance with the diet, bipolar disorder, Charcot foot, tarsometatarsal amputation, chronic kidney disease, and liver disease. FAMILY HISTORY: Reviewed and noncontributory. MEDICATIONS: Current hospital medications including, but not limited to, sliding scale insulin, BID PHYSICAL EXAMINATION: VITAL SIGNS: Blood pressure 120/80, temperature 98.2, pulse oximetry 98% on room air, and respiratory rate 18. HEAD AND NECK: multiple molars with plaques, Atraumatic and normocephalic. CHEST: Clear to auscultation. No wheezing. No crackles. HEART: S1 and S2. Regular rate and rhythm. No S3. No S4. ABDOMEN: Soft. No organomegaly.MUSCULOSKELETAL: Positive for bilater Charcot' s foot. Positive for stump of the prior tarsometatarsal resections. open wound in plantar aspect of left foot NEUROLOGIC: The patient is awake, alert, and oriented x3.PSYCHIATRIC: Mood and affect is normal LABORATORY DATA: Dated 12/09/2019 reviewed A/P: 1- ARF and dehydration 2. HyperKalemia 3. Acute cellulitis with or with out history of OM of left foot. 2- DM- uncontrolled 3. Non compliance with medications 3- Charcot Foot- Left sided 4- HTN 5- Psych Plan: Start empirical antibiotic regiment, ID is consulted will resume NH medications Nephrology , Surgeon and ID are consulted. Comment: time of this dictation doesn't reflect actual time of encounter Dexter Haas MD Dec 09, 2019 11:57
[2019-12-09 12:00] VITALS: BP 140/72
--- NOTE | 2019-12-09 12:12 | NUR ---
NURSE NOTES: Pt seen by Dr Bright, podiatry. Wound photos on both plantar foot taken. wound dressing completed
[2019-12-09] MEDS: Docusate 100mg cap ORAL SCH ×2 (12:59→17:44)
[2019-12-09] MEDS: Pantoprazole Inj IVP SCH ×2 (13:08→20:54)
[2019-12-09] MEDS ORDERED: Piperacillin/Tazobactam 3.375 GM in NS 110 ML IVPB SCH (14:00)
--- NOTE | 2019-12-09 14:15 | NUR ---
NURSE NOTES: pT HAS BEEN REFUSING MANY MEDS. PT ALSO REFUSED CLONIDINE PATCH AND INSULIN DURING LUNCH TIME
--- NOTE | 2019-12-09 15:15 | Infectious Diseases Prog Note ---
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 may need bone biopsy if confirmed osteomyelitis on MRI to guide his antibiotics treatment, will D/W foot cutter (2) Poorly controlled diabetes mellitus Assessment & Plan: recommend tight glycemic control to keep blood glucose between 100-140 (3) Foot ulcer due to secondary DM Assessment & Plan: suspect underlying osteomyelitis at least on the left side . will order MRI to confirm , further care as per foot cutter , may need vascular eval Subjective Allergies: Coded Allergies: METFORMIN (Verified Allergy, Unknown, 10/09/18) Vomiting Objective Vital Signs Last 24 Hour Vital Signs Date Time Temp Pulse Resp B/P (MAP) Pulse Ox O2 Delivery O2 Flow Rate FiO2 12/09/19 14:11 140/72 12/09/19 14:09 140/72 12/09/19 12:00 98.4 71 18 140/72 (94) 96 12/09/19 10:31 98.4 12/09/19 09:00 Room Air 12/09/19 08:00 98.4 84 22 168/102 (124) 98 12/09/19 06:07 Room Air 12/09/19 05:45 98.6 83 18 151/86 99 Room Air 12/09/19 05:00 98.6 83 18 151/86 99 Room Air 12/09/19 03:30 98.6 81 22 162/83 99 Room Air 12/09/19 03:00 98.6 12/09/19 02:00 94 22 Room Air 12/09/19 01:51 98.6 94 22 116/79 (91) 97 Room Air Height (Feet): 5 Height (Inches): 11.00 Weight (Pounds): 220 Microbiology Date/Time Source Procedure Growth Status 12/09/19 05:10 Rectum Received Laboratory Tests Test 12/09/19 02:00 12/09/19 04:20 White Blood Count 10.5 K/UL (4.8-10.8) Red Blood Count 6.43 M/UL (4.70-6.10) H Hemoglobin 18.0 G/DL (14.2-18.0) Hematocrit 53.6 % (42.0-52.0) H Mean Corpuscular Volume 83 FL (80-99) Mean Corpuscular Hemoglobin 28.0 PG (27.0-31.0) Mean Corpuscular Hemoglobin Concent 33.6 G/DL (32.0-36.0) Red Cell Distribution Width 13.1 % (11.6-14.8) Platelet Count 271 K/UL (150-450) Mean Platelet Volume 5.9 FL (6.5-10.1) L Neutrophils (%) (Auto) % (45.0-75.0) Lymphocytes (%) (Auto) % (20.0-45.0) Monocytes (%) (Auto) % (1.0-10.0) Eosinophils (%) (Auto) % (0.0-3.0) Basophils (%) (Auto) % (0.0-2.0) Sodium Level 131 MMOL/L (136-145) L Potassium Level 5.9 MMOL/L (3.5-5.1) H 5.0 MMOL/L (3.5-5.1) Chloride Level 94 MMOL/L (98-107) L Carbon Dioxide Level 24 MMOL/L (21-32) Anion Gap 14 mmol/L (5-15) Blood Urea Nitrogen 38 mg/dL (7-18) H Creatinine 3.4 MG/DL (0.55-1.30) H Estimat Glomerular Filtration Rate 19.2 mL/min (>60) Glucose Level 373 MG/DL (74-106) H Lactic Acid Level 3.20 mmol/L (0.4-2.0) H 1.70 mmol/L (0.66-2.22) Calcium Level 9.6 MG/DL (8.5-10.1) Magnesium Level 2.1 MG/DL (1.8-2.4) Total Bilirubin 0.4 MG/DL (0.2-1.0) Aspartate Amino Transf (AST/SGOT) 49 U/L (15-37) H Alanine Aminotransferase (ALT/SGPT) 65 U/L (12-78) Alkaline Phosphatase 85 U/L (46-116) Total Protein 10.0 G/DL (6.4-8.2) H Albumin 4.8 G/DL (3.4-5.0) Globulin 5.2 g/dL Albumin/Globulin Ratio 0.9 (1.0-2.7) L Acetone Level (NEGATIVE) Current Medications Medications (Trade) Dose Ordered Sig/Aylin Route PRN Reason Start Time Stop Time Status Last Admin Dose Admin Acetaminophen (Tylenol) 650 mg Q4H PRN ORAL Mild Pain/Temp > 100.5 12/09/19 06:45 01/08/20 06:44 Acetaminophen/ Hydrocodone Bitart (Forest 10/325) 1 tab Q4H PRN ORAL Pain Scale (4-6) 12/09/19 08:45 12/16/19 08:44 Albuterol/ Ipratropium (Albuterol/ Ipratropium) 3 ml Q4H PRN HHN Shortness of Breath 12/09/19 06:30 12/14/19 06:29 Bisacodyl (Dulcolax) 10 mg DAILYPRN PRN RECTAL Constipation 12/09/19 06:45 01/08/20 06:44 Cetylpyridinium Chloride (Cepacol) 1 lozg Q6H PRN ORAL For Cough 12/09/19 06:50 01/08/20 06:49 Clonidine HCl (Catapres TTS-3) 1 patch QWEEK TDERMAL 12/09/19 14:00 01/08/20 13:59 12/09/19 14:09 Dextrose (Dextrose 50%) 25 ml Q30M PRN IV Hypoglycemia 12/09/19 06:30 01/08/20 06:29 Dextrose (Dextrose 50%) 50 ml Q30M PRN IV Hypoglycemia 12/09/19 06:30 01/08/20 06:29 Docusate Sodium (Colace) 100 mg TID ORAL 12/09/19 13:00 01/08/20 08:59 Escitalopram Oxalate (Lexapro) 10 mg DAILY ORAL 12/09/19 09:00 01/08/20 08:59 Gabapentin (Neurontin) 300 mg TID ORAL 12/09/19 09:00 01/08/20 08:59 Heparin Sodium (Porcine) (Heparin 5000 units/ml) 5,000 units EVERY 12 HOURS SUBQ 12/09/19 09:00 01/08/20 08:59 Hydralazine HCl (Apresoline) 25 mg Q4H PRN ORAL SBP>160 12/09/19 06:45 01/08/20 06:44 Hydrogen Peroxide (Hydrogen Peroxide) 1 applic DAILY TOPIC 12/10/19 09:00 01/09/20 08:59 Insulin Aspart (NovoLOG) BEFORE MEALS AND HS SUBQ 12/09/19 07:00 01/08/20 06:59 12/09/19 09:57 Insulin Detemir (Levemir) 30 units Q12HR SUBQ 12/09/19 10:00 01/08/20 09:59 12/09/19 10:05 Magnesium Hydroxide (Mom) 30 ml DAILYPRN PRN ORAL Constipation 12/09/19 06:45 01/08/20 06:44 Metoclopramide HCl (Reglan) 10 mg THREE TIMES A DAY ORAL 12/09/19 13:00 01/08/20 12:59 Morphine Sulfate (Morphine Sulfate) 2 mg Q8H PRN IVP Severe Pain (Pain Scale 7-10) 12/09/19 08:45 12/16/19 08:44 12/09/19 09:59 Ondansetron HCl (Zofran) 4 mg Q6H PRN IVP Nausea & Vomiting 12/09/19 10:30 01/08/20 10:29 Pantoprazole (Protonix) 40 mg EVERY 12 HOURS IVP 12/09/19 12:00 01/08/20 11:59 12/09/19 13:08 Piperacillin Sod/ Tazobactam Sod 3.375 gm/Sodium Chloride 110 ml @ 27.5 mls/hr EVERY 8 HOURS IVPB 12/09/19 14:00 12/14/19 13:59 12/09/19 13:08 Quetiapine Fumarate (SEROqueL) 100 mg TWICE A DAY ORAL 12/09/19 09:00 01/08/20 08:59 12/09/19 09:55 Sodium Chloride 1,000 ml @ 75 mls/hr [id number] IV 12/09/19 11:58 01/08/20 11:57 12/09/19 12:23 Vancomycin HCl (Vanco rx to dose) 1 ea DAILY PRN MISC . 12/09/19 09:00 01/08/20 08:59 Kwasi Martinez M.D. Dec 09, 2019 15:15
[2019-12-09 16:00] VITALS: BP_SYST 100; BP_SYST 120; BP_DIAS 62; BP_DIAS 70
[2019-12-09 16:18] LABS: CREATINE KINASE 180 U/L (26-308)
[2019-12-09] MEDS: Meropenem 1 GM in NS 55 ML IVPB SCH (17:43)
[2019-12-09] MEDS ORDERED: DAPTOmycin 600 MG in NS 55 ML IV SCH (18:00)
--- NOTE | 2019-12-09 19:36 | NUR ---
NURSE NOTES: Patient in bed, awake, alert and verbally responsive. Able to make needs known. Respiration is even and unlabored. No complaint of pain or discomfort noted at this time. Skin is warm and dry. Noted with bilateral foot dressing, intact. No drainage noted. IV site noted, iv fluid is infusing as ordered.Bed in low and locked position. Provided safe environment. Call light is at bedside. Will continue plan of care.
[2019-12-09 20:00] VITALS: BP 145/83
--- NOTE | 2019-12-09 20:57 | NUR ---
NURSE NOTES: Patient refused all medications. Blood sugar taken, 162. Educated the patient regarding medication regiment, still refused. Noted saying "I am ok right now, let me just rest." Will reassess patient. No s/s of distress noted.
[2019-12-09] MEDS ORDERED: Atorvastatin 20mg tab ORAL SCH (21:00)
--- NOTE | 2019-12-09 22:00 | Consultation ---
DATE OF CONSULTATION: 12/09/2019 INFECTIOUS DISEASE CONSULTATION CONSULTING PHYSICIAN: Kwasi Martinez M.D. REQUESTING PHYSICIAN: Dexter Haas M.D. REASON FOR CONSULTATION: Bilateral feet diabetic wounds, possible osteomyelitis of the feet with history of left foot osteomyelitis due to ESBL-producing organism in the past. Recommendation for antimicrobial treatment and further care. HISTORY OF PRESENT ILLNESS: The patient is a 49-year-old male with past medical history significant for diabetes, poorly controlled with complications including nephropathy and retinopathy, hypertension, chronic renal failure, and left foot diabetic wound ulcer with left metatarsal osteomyelitis due to ESBL-producing organism. Was sent to [facility] Emergency Room for abdominal discomfort and vomiting from his nursing facility. The patient had nausea and vomiting for three days and he was actively vomiting in the ambulance. The patient attributed his vomiting to possible infection. Denied any cough, shortness of breath, or sore throat. No fever or chills. No chest pain or palpitation. He has bilateral feet diabetic wounds, but they seem to be clean and dry without any pus, draining, or any skin inflammation. The patient's temperature was 98.6 and saturating 97% on room air. His labs showed hyperglycemia with elevated lactic acid and potassium level. X-ray of the chest showed no evidence of pneumonia, but his feet both have open wounds, clean and dry with red base. No evidence of local infection or drainage or pus coming out. Infectious Disease was consulted for antibiotics treatment and further evaluation of his feet diabetic wounds with possible underlying osteomyelitis. The patient denied any pain in his feet since he has neuropathy, he cannot his feet or have any sensation. REVIEW OF SYSTEMS: A 14-point of system reviewed were all negative apart from the one I mentioned above in my H and P. PAST MEDICAL HISTORY: Significant for diabetes with complications including retinopathy, nephropathy, Charcot foot, hypertension, chronic renal failure, left foot diabetic wound ulcer, and left metatarsal osteomyelitis of the foot. PAST SURGICAL HISTORY: He had multiple I and D of his feet wounds. FAMILY HISTORY: Noncontributory. SOCIAL HISTORY: The patient lives at custodial facility. He is retired on disability. Denied using any drugs, tobacco, or alcohol. ALLERGIES: He is allergic to metformin. MEDICATIONS: Currently, the patient is on vancomycin dosed per pharmacy and Zosyn. For the rest of his medications, please refer to MAR. LABORATORY AND DIAGNOSTIC DATA: Labs showed white count of 10.5, hemoglobin of 18, and platelet count of 271,000. BUN of 38 and creatinine of 3.4. AST of 49 and ALT of 65. Potassium of 5.9. Microbiology - last year in July, his foot wound culture grew Klebsiella pneumoniae, ESBL agent producer and Citrobacter diversus. His blood culture also grew the same. Imaging - chest x-ray showed no acute infiltration. PHYSICAL EXAMINATION: VITAL SIGNS: Temperature 98.4, pulse 71, respirations 18, blood pressure 140/72, and saturation 96% on room air. GENERAL: A middle-aged male, lying in bed, lethargic, ill-looking, but responsive to verbal command, not in acute distress. Afebrile. HEENT: Normocephalic and atraumatic. Pupils are reactive to light, equal, and rounded. Moist oral mucosa. No exudate or thrush. Poor dental hygiene. NECK: Supple. No lymphadenopathy. No JVD. CARDIOVASCULAR: Regular rate and rhythm. No murmur or gallop. LUNGS: Clear bilaterally. No wheezing or rhonchi. Normal breathing efforts. ABDOMEN: Soft, nontender, and nondistended. Normal bowel sounds. No hepatosplenomegaly or ascites. EXTREMITIES: He had mild edema in his feet. No clubbing. Charcot foot on both sides. Open wounds at the sole of both feet, clean and dry with red beefy base. No drainage or pus. No purulence. No surrounding cellulitis. Nontender to palpation. ASSESSMENT AND RECOMMENDATION: 1. Possible osteomyelitis of the feet, suspect chronic in the left foot, unclear whether he has osteo on the right foot or not. We will order MRI of both feet to confirm. We will start him on daptomycin due to history of VRE in the past and meropenem since he grew ESBL-producing Klebsiella pneumoniae in the past. May need bone biopsy if confirmed osteomyelitis on MRI to guide his antibiotics treatment in the future. We will discuss with transport technician. Obtain sedimentation rate and C-reactive protein. 2. Poorly controlled diabetes mellitus with hyperglycemia. The patient had multiple complications in the past. Recommend tight glycemic control to keep blood glucose between 100 to 140. 3. Foot ulcer due to secondary diabetes mellitus, suspect underlying osteomyelitis at least on the left side. We will order MRI to confirm. Further care as per transport technician. May need vascular evaluation. 4. Acute on chronic renal failure, suspect dehydration related. Continue fluids. Avoid nephrotoxics. Monitor renal function. Stop vancomycin. Thank you for the consult. ID will continue to follow. Kwasi Martinez M.D. DR: KEANU JOB#: [id number] CC:
[2019-12-10] VITALS: BP 149/90
[2019-12-10 04:00] VITALS: BP 145/89
[2019-12-10] MEDS: Meropenem 1 GM in NS 55 ML IVPB SCH ×2 (05:00→18:41)
[2019-12-10] MEDS: Morphine Sulfate 2mg/ml Inj(IV/IM USE ONLY) IVP PRN (06:09)
[2019-12-10] MEDS: NovoLOG Insulin Flexpen SUBQ SCH ×4 (06:30→21:23)
--- NOTE | 2019-12-10 06:30 | NUR ---
NURSE NOTES: Patient refused insulin, blood sugar 168. Educated patient still refused. Patient did not eat much for dinner.
[2019-12-10 06:36] LABS: APPEARANCE,URINE CLEAR; BILIRUBIN, URINE NEGATIVE (NEGATIVE); COLOR,URINE PALE YELLOW; GLUCOSE, URINE (UA) 3+ (NEGATIVE); KETONES,URINE NEGATIVE (NEGATIVE); LEUKOCYTE ESTERASE ,URINE NEGATIVE (NEGATIVE); NITRITE,URINE NEGATIVE (NEGATIVE); PH,URINE 7 (4.5-8.0); PROTEIN,URINE 2+ (NEGATIVE); UROBILINOGEN,URINE NORMAL MG/DL (0.0-1.0)
[2019-12-10 06:38] LABS: BASOPHILS % (AUTO) 0.8 % (0.0-2.0); EOSINOPHILS % (AUTO) 3.7 % (0.0-3.0); HEMATOCRIT 40.3 % (42.0-52.0); HEMOGLOBIN 13.3 G/DL (14.2-18.0); MEAN CORPUSCULAR VOLUME 84 FL (80-99); MONOCYTES % (AUTO) 7.1 % (1.0-10.0); NEUTROPHILS % (AUTO) 72.5 % (45.0-75.0); PLATELET COUNT 179 K/UL (150-450); RED CELL DISTRIBUTION WIDTH 13.2 % (11.6-14.8); WHITE BLOOD COUNT 5.5 K/UL (4.8-10.8)
--- NOTE | 2019-12-10 07:11 | NUR ---
HAND-OFF: Report given to PACO Adame.
--- NOTE | 2019-12-10 07:12 | NUR ---
NURSE NOTES: Report received from Gennaro ANTONIO. Patient is awake and alert x 4. Currently on room air. 24 lexy IV noted in right hand with fluids running per MD orders. patient noted to have dressings of both feet bilaterally. Dressings dry clean and in tact. Dressings changed on previous shift per previous nurse. Patient has no complaints at this time. Call light within reach. will continue to follow plan of care.
[2019-12-10 07:28] LABS: ALANINE AMINOTRANSFERASE 50 U/L (12-78); ALBUMIN 3.3 G/DL (3.4-5.0); ALBUMIN/GLOBULIN RATIO 0.8 (1.0-2.7); ALKALINE PHOSPHATASE 60 U/L (46-116); ANION GAP 10 mmol/L (5-15); ASPARTATE AMINO TRANSFERASE 38 U/L (15-37); BILIRUBIN,TOTAL 0.3 MG/DL (0.2-1.0); BLOOD UREA NITROGEN 25 mg/dL (7-18); CALCIUM 7.7 MG/DL (8.5-10.1); CARBON DIOXIDE 24 MMOL/L (21-32); CHLORIDE 104 MMOL/L (98-107); CHOLESTEROL 144 MG/DL (< 200); CREATINE KINASE 183 U/L (26-308); CREATININE 2.3 MG/DL (0.55-1.30); GAMMA GLUTAMYL TRANSPEPTIDASE 26 U/L (5-85); HDL CHOLESTEROL 33 MG/DL (40-60); PHOSPHORUS 2.7 MG/DL (2.5-4.9); POTASSIUM 4.5 MMOL/L (3.5-5.1); SODIUM 138 MMOL/L (136-145); TRIGLYCERIDES 155 MG/DL (30-150)
[2019-12-10] MEDS: Pantoprazole Inj IVP SCH (08:43)
[2019-12-10] MEDS: Docusate 100mg cap ORAL SCH ×4 (08:43→18:00)
[2019-12-10] MEDS: Levemir Flexpen SUBQ SCH (08:45)
[2019-12-10] MEDS: Heparin 5000 units/ml inj SUBQ SCH ×3 (08:46→21:22)
[2019-12-10] MEDS: Hydrogen Peroxide 473ml Bottle TOPIC SCH (08:47)
--- NOTE | 2019-12-10 08:59 | NUR ---
NURSE NOTES: Patient refused to take heparin, Seroquel, and Colace. Educated patient on purpose of all three medications. Educated patients on risks of not taking medication. Patient was abler to verbalize that he understood and still refused to take medications.
--- NOTE | 2019-12-10 10:26 | NUR ---
NURSE NOTES: [facility] called and faxed over lab reports which showed ESBL in bilateral feet wounds. Sandy was contacted from microbiology at [facility] who said maci will run tests to confirm. In the meantime, patient will be placed on isolation pending [facility] results. MD Martinez will be contacted. stockroom supervisor made aware.
--- NOTE | 2019-12-10 10:26 | NUR ---
NURSE NOTES: [facility] called and faxed over lab reports which showed ESBL and Staph in bilateral feet wounds. Charge nurse Omar made aware. Omar called laboratory and boarding house manager. Was communicated to Deep ANTONIO that [facility] laboratory will run own test. Doctor Michelle made aware.
--- NOTE | 2019-12-10 11:20 | NUR ---
NURSE NOTES: Examined patient with Doctor Marty. Dressings taken down. Patient found to have very weak pedal pules. Amyhordarian marked ankles bilaterally where pulse could still be palpated. Wounds cleaned, dressing reapplied. Doctor ordered STAT echo, bilateral duplex ultrasound of both feet, and MRI of both feet. Orders placed.
--- NOTE | 2019-12-10 11:30 | Consultation ---
DATE OF CONSULTATION: 12/09/2019 ENDOCRINOLOGY CONSULTATION CONSULTING PHYSICIAN: Binh Borges M.D. REFERRING PHYSICIAN: Dexter Haas M.D. REASON FOR CONSULTATION: Diabetes management. HISTORY OF PRESENT ILLNESS: The patient is a 49-year-old male with past medical history of insulin-dependent diabetes, who I am familiar with him due to previous hospitalization. The patient has history of left foot infection with Charcot foot joint and presented to the hospital with recurrence of the infection. I was called to manage diabetes. PAST MEDICAL HISTORY: 1. Cardiovascular disease. 2. Hypertension. 3. COPD. 4. Insulin-dependent diabetes. 5. Diabetic foot ulcer with Charcot foot joint. MEDICATIONS: Reviewed and reconciled. PAST SURGICAL HISTORY: I and D of the left lower extremity. ALLERGIES: To metformin. REVIEW OF SYSTEMS: A 12-point review of systems was performed and pertinent positives and negatives are mentioned in the history of present illness. FAMILY HISTORY: Noncontributory. SOCIAL HISTORY: No smoking, alcohol, or drug use. LABORATORY DATA: WBC 10, hemoglobin potassium 5.9, chloride 95, bicarb 24, BUN 38, creatinine 3.4. Lactic acid of 3.2, which improved to 1.7. Glucose 373. Anion gap is 14. PHYSICAL EXAMINATION: VITAL SIGNS: Blood pressure 150/86, pulse 82, temperature 98.2, respiratory rate of 18. HEENT: Pupils are equal and reactive to light. Sclerae anicteric. NECK: No JVD. HEART: Regular. LUNGS: Clear. ABDOMEN: Positive bowel sounds. Soft. EXTREMITIES: No clubbing, cyanosis, or edema. DIAGNOSES: 1. Nausea, vomiting. 2. Foot infection. 3. Diabetes, out of control. PLAN: 1. We will start the patient on Levemir 30 units b.i.d. 2. NovoLog 6 units before each meal. 3. NovoLog sliding scale before meals and at bedtime. 4. Further adjustment according to blood glucose values. Thank you, Dr. Haas, for the courtesy of this consultation. Binh Borges M.D. : PACO/PABLO JOB#: [id number] CC: JOVON
--- NOTE | 2019-12-10 11:57 | Nephrology Progress Note ---
Assessment/Plan Problem List: (1) Renal failure (ARF), acute on chronic (2) Diabetic nephropathy (3) Foot ulcer due to secondary DM (4) Hyperglycemia Assessment Acute on chronic renal failure- Diabetic Nephropathy DM OOC Anemia Electrolyte imbalance HTN EJ Fx 55% previously Kidney COOPER unremarkable previously Plan adjust BP meds Protonix to PO Reglan Keep BP and BS in check avoid nephrotoxics monitor renal parameters Slow hydrate Urine studies NS bolus as needed Subjective ROS Limited/Unobtainable: No Constitutional: Reports: malaise, weakness Objective Objective Last 24 Hour Vital Signs Date Time Temp Pulse Resp B/P (MAP) Pulse Ox O2 Delivery O2 Flow Rate FiO2 12/10/19 11:50 Room Air 12/10/19 09:00 Room Air 12/10/19 04:00 98.0 77 18 145/89 (107) 96 12/10/19 00:00 98.3 72 16 149/90 (109) 96 12/09/19 20:43 Room Air 12/09/19 20:00 72 16 145/83 (103) 96 12/09/19 16:00 98.1 74 18 120/70 (87) 98 12/09/19 14:11 140/72 12/09/19 14:09 140/72 12/09/19 12:00 98.4 71 18 140/72 (94) 96 Intake and Output 12/09/19 12/10/19 19:00 07:00 Intake Total 460 ml 925 ml Output Total 1200 ml Balance 460 ml -275 ml Intake Oral 460 ml 420 ml IV Total 505 ml Output Urine Total 1200 ml # Voids 2 3 Laboratory Tests 12/10/19 05:00: Urine Color Pale yellow, Urine Appearance Clear, Urine pH 7, Urine Specific [place] 1.005, Urine Protein 2+H, Urine Glucose (UA) 3+H, Urine Ketones Negative , Urine Blood Negative, Urine Nitrite Negative, Urine Bilirubin Negative, Urine Urobilinogen Normal, Urine Leukocyte Esterase Negative, Urine RBC 0, Urine WBC 0 , Urine Squamous Epithelial Cells Occasional, Urine Bacteria Occasional, Urine Random Sodium 163H 12/10/19 06:00: White Blood Count 5.5, Red Blood Count 4.80, Hemoglobin 13.3L, Hematocrit 40.3L , Mean Corpuscular Volume 84, Mean Corpuscular Hemoglobin 27.6, Mean Corpuscular Hemoglobin Concent 32.9, Red Cell Distribution Width 13.2, Platelet Count 179, Mean Platelet Volume 5.5L, Neutrophils (%) (Auto) 72.5, Lymphocytes ( %) (Auto) 16.0L, Monocytes (%) (Auto) 7.1, Eosinophils (%) (Auto) 3.7H, Basophils (%) (Auto) 0.8, Sodium Level 138, Potassium Level 4.5, Chloride Level 104, Carbon Dioxide Level 24, Anion Gap 10, Blood Urea Nitrogen 25H, Creatinine 2.3H, Estimat Glomerular Filtration Rate 30.1, Glucose Level 190#H, Hemoglobin A1c 11.6H, Lactic Acid Level 0.80, Uric Acid 5.3, Calcium Level 7.7L, Phosphorus Level 2.7, Magnesium Level 2.1, Total Bilirubin 0.3, Gamma Glutamyl Transpeptidase 26, Aspartate Amino Transf (AST/SGOT) 38H, Alanine Aminotransferase (ALT/SGPT) 50, Alkaline Phosphatase 60, Total Creatine Kinase 183, Troponin I 0.000, C-Reactive Protein, Quantitative 2.3H, Pro-B-Type Natriuretic Peptide 331H, Total Protein 7.2, Albumin 3.3L, Globulin 3.9, Albumin /Globulin Ratio 0.8L, Triglycerides Level 155H, Cholesterol Level 144, LDL Cholesterol 77, HDL Cholesterol 33L, Cholesterol/HDL Ratio 4.4, Thyroid Stimulating Hormone (TSH) 0.925 Height (Feet): 5 Height (Inches): 11.00 Weight (Pounds): 208 General Appearance: no apparent distress Cardiovascular: normal rate Respiratory/Chest: decreased breath sounds Abdomen: soft Extremities: other - PVD Ernesto Frost MD Dec 10, 2019 11:57
[2019-12-10 12:00] VITALS: BP 138/78
[2019-12-10] MEDS: Tums 500mg ORAL SCH ×2 (12:25→18:00)
[2019-12-10] MEDS ORDERED: Vitamin D 50,000 units cap ORAL SCH (13:00)
--- NOTE | 2019-12-10 14:10 | Infectious Diseases Prog Note ---
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 may need bone biopsy if confirmed osteomyelitis on MRI to guide his antibiotics treatment, will D/W forge helper (2) Poorly controlled diabetes mellitus Assessment & Plan: recommend tight glycemic control to keep blood glucose between 100-140 (3) Foot ulcer due to secondary DM Assessment & Plan: suspect underlying osteomyelitis at least on the left side . await MRI to confirm , further care as per forge helper , vascular eval is in progress Subjective Constitutional: Reports: no symptoms HEENT: Reports: no symptoms Respiratory: Reports: no symptoms Breasts: Reports: no symptoms Cardiovascular: Reports: no symptoms Gastrointestinal/Abdominal: Reports: no symptoms Genitourinary: Reports: no symptoms Neurologic: Reports: no symptoms Psychiatric: Reports: no symptoms Skin: Reports: no symptoms Endocrine: Reports: no symptoms Hematologic: Reports: no symptoms Musculoskeletal: Reports: no symptoms Allergies: Coded Allergies: METFORMIN (Verified Allergy, Unknown, 10/09/18) Vomiting Objective Vital Signs Last 24 Hour Vital Signs Date Time Temp Pulse Resp B/P (MAP) Pulse Ox O2 Delivery O2 Flow Rate FiO2 12/10/19 12:26 66 138/78 12/10/19 11:50 Room Air 12/10/19 09:00 Room Air 12/10/19 04:00 98.0 77 18 145/89 (107) 96 12/10/19 00:00 98.3 72 16 149/90 (109) 96 12/09/19 20:43 Room Air 12/09/19 20:00 72 16 145/83 (103) 96 12/09/19 16:00 98.1 74 18 120/70 (87) 98 12/09/19 14:11 140/72 12/09/19 14:09 140/72 Height (Feet): 5 Height (Inches): 11.00 Weight (Pounds): 208 General Appearance: WD/WN, no acute distress HEENT: normocephalic, atraumatic, anicteric, mucous membranes moist, PERRL Respiratory/Chest: chest wall non-tender, lungs clear, normal breath sounds, no respiratory distress, no accessory muscle use, respiratory distress Cardiovascular: normal peripheral pulses, normal rate, regular rhythm, no gallop/murmur, no JVD Abdomen: normal bowel sounds, soft, non tender, no organomegaly, non distended , no mass, no scars Genitourinary: normal external genitalia Extremities: no cyanosis, no clubbing Skin: no rash, no lesions, other - B/L feet wounds clean and dry 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, no motor/sensory deficits, alert, oriented x 3, responsive Lymphatic: no neck adenopathy, no groin adenopathy Musculoskeletal: normal muscle bulk, no effusion Microbiology Date/Time Source Procedure Growth Status 12/09/19 02:00 Blood Blood Culture - Preliminary NO GROWTH AFTER 24 HOURS Resulted 12/09/19 02:00 Blood Blood Culture - Preliminary NO GROWTH AFTER 24 HOURS Resulted 12/09/19 05:10 Rectum Received 12/09/19 03:25 Foot Left Gram Stain Pending Resulted 12/09/19 03:25 Wound Culture - Preliminary Gram Negative Bacillus 1 Resulted 12/09/19 03:20 Foot Right Gram Stain Pending Resulted 12/09/19 03:20 Wound Culture - Preliminary Gram Negative Bacillus 1 Resulted Laboratory Tests Test 12/10/19 05:00 12/10/19 06:00 Urine Color Pale yellow Urine Appearance Clear Urine pH 7 (4.5-8.0) Urine Specific [place] 1.005 (1.005-1.035) Urine Protein 2+ (NEGATIVE) H Urine Glucose (UA) 3+ (NEGATIVE) H Urine Ketones Negative (NEGATIVE) Urine Blood Negative (NEGATIVE) Urine Nitrite Negative (NEGATIVE) Urine Bilirubin Negative (NEGATIVE) Urine Urobilinogen Normal MG/DL (0.0-1.0) Urine Leukocyte Esterase Negative (NEGATIVE) Urine RBC 0 /HPF (0 - 0) Urine WBC 0 /HPF (0 - 0) Urine Squamous Epithelial Cells Occasional /LPF Urine Bacteria Occasional /HPF (NONE) Urine Random Sodium 163 mmol/L (20-110) H White Blood Count 5.5 K/UL (4.8-10.8) Red Blood Count 4.80 M/UL (4.70-6.10) Hemoglobin 13.3 G/DL (14.2-18.0) L Hematocrit 40.3 % (42.0-52.0) L Mean Corpuscular Volume 84 FL (80-99) Mean Corpuscular Hemoglobin 27.6 PG (27.0-31.0) Mean Corpuscular Hemoglobin Concent 32.9 G/DL (32.0-36.0) Red Cell Distribution Width 13.2 % (11.6-14.8) Platelet Count 179 K/UL (150-450) Mean Platelet Volume 5.5 FL (6.5-10.1) L Neutrophils (%) (Auto) 72.5 % (45.0-75.0) Lymphocytes (%) (Auto) 16.0 % (20.0-45.0) L Monocytes (%) (Auto) 7.1 % (1.0-10.0) Eosinophils (%) (Auto) 3.7 % (0.0-3.0) H Basophils (%) (Auto) 0.8 % (0.0-2.0) Sodium Level 138 MMOL/L (136-145) Potassium Level 4.5 MMOL/L (3.5-5.1) Chloride Level 104 MMOL/L (98-107) Carbon Dioxide Level 24 MMOL/L (21-32) Anion Gap 10 mmol/L (5-15) Blood Urea Nitrogen 25 mg/dL (7-18) H Creatinine 2.3 MG/DL (0.55-1.30) H Estimat Glomerular Filtration Rate 30.1 mL/min (>60) Glucose Level 190 MG/DL (74-106) #H Hemoglobin A1c 11.6 % (4.3-6.0) H Lactic Acid Level 0.80 mmol/L (0.4-2.0) Uric Acid 5.3 MG/DL (2.6-7.2) Calcium Level 7.7 MG/DL (8.5-10.1) L Phosphorus Level 2.7 MG/DL (2.5-4.9) Magnesium Level 2.1 MG/DL (1.8-2.4) Total Bilirubin 0.3 MG/DL (0.2-1.0) Gamma Glutamyl Transpeptidase 26 U/L (5-85) Aspartate Amino Transf (AST/SGOT) 38 U/L (15-37) H Alanine Aminotransferase (ALT/SGPT) 50 U/L (12-78) Alkaline Phosphatase 60 U/L (46-116) Total Creatine Kinase 183 U/L (26-308) Troponin I 0.000 ng/mL (0.000-0.056) C-Reactive Protein, Quantitative 2.3 mg/dL (0.00-0.90) H Pro-B-Type Natriuretic Peptide 331 pg/mL (0-125) H Total Protein 7.2 G/DL (6.4-8.2) Albumin 3.3 G/DL (3.4-5.0) L Globulin 3.9 g/dL Albumin/Globulin Ratio 0.8 (1.0-2.7) L Triglycerides Level 155 MG/DL (30-150) H Cholesterol Level 144 MG/DL (< 200) LDL Cholesterol 77 mg/dL (<100) HDL Cholesterol 33 MG/DL (40-60) L Cholesterol/HDL Ratio 4.4 (3.3-4.4) Thyroid Stimulating Hormone (TSH) 0.925 uiU/mL (0.358-3.740) Current Medications Medications (Trade) Dose Ordered Sig/Aylin Route PRN Reason Start Time Stop Time Status Last Admin Dose Admin Acetaminophen (Tylenol) 650 mg Q4H PRN ORAL Mild Pain/Temp > 100.5 12/09/19 06:45 01/08/20 06:44 12/10/19 05:02 Acetaminophen/ Hydrocodone Bitart ([place] 10/325) 1 tab Q4H PRN ORAL Pain Scale (4-6) 12/09/19 08:45 12/16/19 08:44 Albuterol/ Ipratropium (Albuterol/ Ipratropium) 3 ml Q4H PRN HHN Shortness of Breath 12/09/19 06:30 12/14/19 06:29 Amlodipine Besylate (Norvasc) 5 mg DAILY ORAL 12/11/19 09:00 01/10/20 08:59 Bisacodyl (Dulcolax) 10 mg DAILYPRN PRN RECTAL Constipation 12/09/19 06:45 01/08/20 06:44 Calcium Carbonate (Tums) 500 mg THREE TIMES A DAY ORAL 12/10/19 13:00 01/09/20 12:59 12/10/19 12:25 Cetylpyridinium Chloride (Cepacol) 1 lozg Q6H PRN ORAL For Cough 12/09/19 06:50 01/08/20 06:49 12/10/19 12:31 Clonidine HCl (Catapres TTS-3) 1 patch QWEEK TDERMAL 12/09/19 14:00 01/08/20 13:59 12/09/19 14:09 Daptomycin 600 mg/ Sodium Chloride 55 ml @ 100 mls/hr Q48H IV 12/09/19 18:00 12/16/19 17:59 12/09/19 18:07 Dextrose (Dextrose 50%) 25 ml Q30M PRN IV Hypoglycemia 12/09/19 06:30 01/08/20 06:29 Dextrose (Dextrose 50%) 50 ml Q30M PRN IV Hypoglycemia 12/09/19 06:30 01/08/20 06:29 Docusate Sodium (Colace) 100 mg TID ORAL 12/09/19 13:00 01/08/20 08:59 Ergocalciferol (Drisdol) 50,000 intlu QWEEK ORAL 12/10/19 13:00 01/09/20 12:59 Escitalopram Oxalate (Lexapro) 10 mg DAILY ORAL 12/09/19 09:00 01/08/20 08:59 12/10/19 08:44 Gabapentin (Neurontin) 300 mg TID ORAL 12/09/19 09:00 01/08/20 08:59 12/10/19 12:25 Heparin Sodium (Porcine) (Heparin 5000 units/ml) 5,000 units EVERY 12 HOURS SUBQ 12/09/19 09:00 01/08/20 08:59 Hydralazine HCl (Apresoline) 25 mg Q4H PRN ORAL SBP>160 12/09/19 06:45 01/08/20 06:44 Hydrogen Peroxide (Hydrogen Peroxide) 1 applic DAILY TOPIC 12/10/19 09:00 01/09/20 08:59 12/10/19 08:47 Insulin Aspart (NovoLOG) BEFORE MEALS AND HS SUBQ 12/09/19 07:00 01/08/20 06:59 12/10/19 12:32 Insulin Detemir (Levemir) 30 units Q12HR SUBQ 12/09/19 10:00 01/08/20 09:59 12/10/19 08:45 Magnesium Hydroxide (Mom) 30 ml DAILYPRN PRN ORAL Constipation 12/09/19 06:45 01/08/20 06:44 Meropenem 1 gm/ Sodium Chloride 55 ml @ 110 mls/hr Q12H IVPB 12/09/19 17:00 12/14/19 16:59 12/10/19 05:00 Metoclopramide HCl (Reglan) 10 mg THREE TIMES A DAY ORAL 12/09/19 13:00 01/08/20 12:59 12/10/19 12:25 Morphine Sulfate (Morphine Sulfate) 2 mg Q8H PRN IVP Severe Pain (Pain Scale 7-10) 12/09/19 08:45 12/16/19 08:44 12/10/19 06:09 Ondansetron HCl (Zofran) 4 mg Q6H PRN IVP Nausea & Vomiting 12/09/19 10:30 01/08/20 10:29 12/10/19 00:52 Pantoprazole (Protonix) 40 mg EVERY 12 HOURS ORAL 12/10/19 21:00 01/09/20 20:59 Quetiapine Fumarate (SEROqueL) 100 mg TWICE A DAY ORAL 12/09/19 09:00 01/08/20 08:59 12/09/19 09:55 Sodium Chloride 1,000 ml @ 75 mls/hr [id number] IV 12/09/19 11:58 01/08/20 11:57 12/10/19 05:00 Kwasi Martinez M.D. Dec 10, 2019 14:10
--- NOTE | 2019-12-10 15:24 | NUR ---
MRI DARNELL FEET AND ANKLE COMPLETED.
--- NOTE | 2019-12-10 15:48 | General Progress Note ---
Assessment/Plan Assessment/Plan: S: I am ok O: constant pain in both feet. PHYSICAL EXAMINATION:. HEAD AND NECK: multiple molars with plaques, Atraumatic and normocephalic. CHEST: Clear to auscultation. No wheezing. No crackles. HEART: S1 and S2. Regular rate and rhythm. No S3. No S4. ABDOMEN: Soft. No organomegaly.MUSCULOSKELETAL: Positive for bilater Charcot' s foot. Positive for stump of the prior tarsometatarsal resections. open wound in plantar aspect of left foot NEUROLOGIC: The patient is awake, alert, and oriented x3.PSYCHIATRIC: Mood and affect is normal LABORATORY DATA: Dated 12/10/2019 reviewed A/P: 1- ARF and dehydration 2. HyperKalemia 3. Acute cellulitis with or with out history of OM of left foot. 2- OM of left foot- likely chronic. 4. DM- uncontrolled 3. Non compliance with medications 3- Charcot Foot- Left sided 4- HTN 5- Psych Plan: Pending Imaging Current empirical abx Subjective Allergies: Coded Allergies: METFORMIN (Verified Allergy, Unknown, 10/09/18) Vomiting Objective Last 24 Hour Vital Signs Date Time Temp Pulse Resp B/P (MAP) Pulse Ox O2 Delivery O2 Flow Rate FiO2 12/10/19 12:26 66 138/78 12/10/19 12:00 97.8 66 20 138/78 (98) 97 12/10/19 11:50 Room Air 12/10/19 09:00 Room Air 12/10/19 04:00 98.0 77 18 145/89 (107) 96 12/10/19 00:00 98.3 72 16 149/90 (109) 96 12/09/19 20:43 Room Air 12/09/19 20:00 72 16 145/83 (103) 96 12/09/19 16:00 98.1 74 18 120/70 (87) 98 Intake and Output 12/09/19 12/10/19 19:00 07:00 Intake Total 460 ml 1000 ml Output Total 1200 ml Balance 460 ml -200 ml Intake Oral 460 ml 420 ml IV Total 580 ml Output Urine Total 1200 ml # Voids 2 3 Laboratory Tests 12/10/19 05:00: Urine Color Pale yellow, Urine Appearance Clear, Urine pH 7, Urine Specific [place] 1.005, Urine Protein 2+H, Urine Glucose (UA) 3+H, Urine Ketones Negative , Urine Blood Negative, Urine Nitrite Negative, Urine Bilirubin Negative, Urine Urobilinogen Normal, Urine Leukocyte Esterase Negative, Urine RBC 0, Urine WBC 0 , Urine Squamous Epithelial Cells Occasional, Urine Bacteria Occasional, Urine Random Sodium 163H 12/10/19 06:00: White Blood Count 5.5, Red Blood Count 4.80, Hemoglobin 13.3L, Hematocrit 40.3L , Mean Corpuscular Volume 84, Mean Corpuscular Hemoglobin 27.6, Mean Corpuscular Hemoglobin Concent 32.9, Red Cell Distribution Width 13.2, Platelet Count 179, Mean Platelet Volume 5.5L, Neutrophils (%) (Auto) 72.5, Lymphocytes ( %) (Auto) 16.0L, Monocytes (%) (Auto) 7.1, Eosinophils (%) (Auto) 3.7H, Basophils (%) (Auto) 0.8, Sodium Level 138, Potassium Level 4.5, Chloride Level 104, Carbon Dioxide Level 24, Anion Gap 10, Blood Urea Nitrogen 25H, Creatinine 2.3H, Estimat Glomerular Filtration Rate 30.1, Glucose Level 190#H, Hemoglobin A1c 11.6H, Lactic Acid Level 0.80, Uric Acid 5.3, Calcium Level 7.7L, Phosphorus Level 2.7, Magnesium Level 2.1, Total Bilirubin 0.3, Gamma Glutamyl Transpeptidase 26, Aspartate Amino Transf (AST/SGOT) 38H, Alanine Aminotransferase (ALT/SGPT) 50, Alkaline Phosphatase 60, Total Creatine Kinase 183, Troponin I 0.000, C-Reactive Protein, Quantitative 2.3H, Pro-B-Type Natriuretic Peptide 331H, Total Protein 7.2, Albumin 3.3L, Globulin 3.9, Albumin /Globulin Ratio 0.8L, Triglycerides Level 155H, Cholesterol Level 144, LDL Cholesterol 77, HDL Cholesterol 33L, Cholesterol/HDL Ratio 4.4, Thyroid Stimulating Hormone (TSH) 0.925 Height (Feet): 5 Height (Inches): 11.00 Weight (Pounds): 208 Dexter Haas MD Dec 10, 2019 15:48
--- NOTE | 2019-12-10 15:59 | NUR ---
NURSE NOTES: Called vascular regarding arterial duplex. Vascular stated it would not be done until after 5.
[2019-12-10 16:00] VITALS: BP 148/87
--- NOTE | 2019-12-10 16:27 | Diagnostic Imaging Report ---
Indication: Open wound in the plantar midfoot Technique: Axial, sagittal, and coronal T1 FSE and FSE STIR images of the right forefoot Comparison: 08/13/2019 Findings: There is evidence of amputation of the first digit at the level of the interphalangeal joint. There is inferior subluxation or dislocation of the second proximal interphalangeal joint. There is hammertoe deformity of the remaining digits. No marrow signal abnormality seen in any of the metatarsals or phalanges. There is high STIR signal in the dorsal subcutaneous fat as well as in the dorsal musculoskeletal compartment. The midfoot demonstrates heterogeneous signal as well as severe alignment abnormalities of the bones of the midfoot. However, the signal abnormality is considerably decreased from the prior exam, and the surrounding soft tissue is much less edematous and the periarticular fluid evident previously has decreased significantly. Some periarticular fluid persists, however. There is an ulcer in the lateral side of the midfoot, marked by a marker, which is not evident on the previous exam. Deep to this there is some edema, although as mentioned above this is improved since the prior study. Impression: Heterogeneous signal within the bones of the midfoot. Given evidence of destruction and multiple alignment abnormalities, most likely indicates Charcot changes. However, acute osteomyelitis can also have this appearance. Note that these findings have improved significantly since the previous study of 08/13/2019, as has the surrounding soft tissue edema and inflammation No evidence of osteomyelitis in the forefoot
--- NOTE | 2019-12-10 16:41 | Diagnostic Imaging Report ---
Indication: Right mid foot plantar open wound, history of osteomyelitis Technique: Sagittal, axial, and coronal T1 FSE and FSE STIR images of the right ankle Comparison: 08/13/2019 Findings: Abnormal marrow signal is seen is slight extent within the talus and within the calcaneus. There is some erosive change around the anterior talus. Signal abnormality is also seen in the navicular, cuboid, middle and lateral cuneiforms. The base of the first metatarsal and the medial cuneiform are markedly severely subluxed, overriding the other tarsal bones and subluxed dorsally. There is only minimal signal abnormality within the medial cuneiform and none within the base of the fifth metatarsal. The second and third metatarsal bases are also essentially completely dislocated from their normal articular surfaces with their respective cuneiforms. There is an ulcer of the mid plantar midfoot. There is considerable edema deep to the ulcer and there may be a small discrete fluid collection measuring 1 cm in diameter. There is diffuse edema of the surrounding soft tissues. When compared to the prior exam, the degree of signal abnormality within the talus, calcaneus, navicular, distal fibula, distal tibia, and the cuneiforms has markedly improved and some cases completely resolved. The joint effusion previously demonstrated as well as a surrounding soft tissue edema has likewise improved, although clearly not resolved. 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 Extensive signal abnormality within the bones of the midfoot and hindfoot, as described. This is nonspecific, as can definitely be seen in Charcot foot, but can also be seen in osteomyelitis. Note, however, that while still present, the osseous changes seen on the prior study of August 2019 have considerably improved Extensive soft tissue edema, likely on the basis of cellulitis given stated clinical history. Note that this has also improved. Plantar soft tissue ulcer. Evidence of 1 cm underlying fluid collection may represent a tiny abscess
--- NOTE | 2019-12-10 17:04 | Diagnostic Imaging Report ---
Indication: Open wound in the midfoot plantar region, history of suspected osteomyelitis Technique: Sagittal, axial, and coronal T1 FSE and FSE STIR images of the forefoot Comparison: 08/13/2019 Findings: There is evidence of prior resection of the fifth digit at the level of the midshaft metatarsal. There is some susceptibility artifact immediately distal to this, which is also evident on the previous exam. This may indicate some retained metal in this area. There is apparent ankylosis of the fourth metatarsal phalangeal joint. There is subluxation of the fourth proximal interphalangeal joint, with probable chronic destructive changes of the fourth middle phalanx. There is slight subluxation of the second proximal interphalangeal joint. No definite osseous signal abnormality to suggest osteomyelitis is demonstrated. Some fluid is seen surrounding the third fourth and fifth metatarsals, similar in extent to the prior study. A small ulcer is seen on the plantar surface of the foot, same location as that which was seen previously. There is some edema of the plantar surface subcutaneous fat. No discrete fluid collections to suggest abscess are evident when compared to prior exam, no significant interim change except for slightly decreased fluid in the midfoot. Impression: No definite signal abnormality to suggest acute osteomyelitis demonstrated. Plantar surface mid foot skin ulcer, also evident on previous study and appearing unchanged. Fluid seen surrounding multiple metatarsal shafts, also evident previously. Postsurgical changes and chronic bony and joint deformities, as described, the latter likely related to Charcot type changes.
--- NOTE | 2019-12-10 17:12 | Diagnostic Imaging Report ---
. Indication: Under surface foot ulcer Technique: Sagittal, axial, coronal T1 fast spin-echo and FSE STIR images of the left hindfoot Comparison: 08/13/2019 Findings: There is marked alignment abnormality and chronic destructive change of the bones of the midfoot. There is marked bone loss involving the cuboid. There is apparent ankylosis of multiple cuneiforms and most of the metatarsals articulate directly with either the talus or the calcaneus. No osseous marrow signal abnormality is demonstrated. There is moderate amount of fluid within the joint. There is a plantar surface soft tissue ulcer and adjacent edema. No definite discrete fluid collections are demonstrated. Findings are similar to the previous exam. Impression: No definite findings to suggest acute osteomyelitis. Plantar soft tissue ulcer, similar to previous study of 08/13/2019 Extensive destructive changes and deformities of the midfoot, likely indicating Charcot type neuropathic changes
--- NOTE | 2019-12-10 17:13 | NUR ---
CASE MANAGEMENT:INITIAL REVIEW 49 YR OLD MALE BIBA FROM [facility] CC;VOMITING SI;INTRACTABLE VOMITING. HYPERGLYCEMIA. 98.6 94 22 168/102 99% ON RA HCT 53.6 NA 131 K+ 5.9 CL 94 BUN 38 CREAT 3.4 BBG 373 LAC ACID 3.20 AST 49 CXR - NO ACUTE PROCESS IS;IVF NS BOLUS X1 ZOFRAN IV X1 INSULIN IV X1 PEPCID IV X1 ADMITTED TO MED SURG MED SURG STATUS DCP;FROM [facility]
--- NOTE | 2019-12-10 18:58 | General Progress Note ---
Assessment/Plan Problem List: (1) Foot ulcer due to secondary DM ICD Codes: E13.621 - Other specified diabetes mellitus with foot ulcer; L97.509 - Non-pressure chronic ulcer of other part of unspecified foot with unspecified severity SNOMED: 5655855, 767730594 (2) Diabetic nephropathy ICD Codes: E11.21 - Type 2 diabetes mellitus with diabetic nephropathy SNOMED: 13729124, 675149759 (3) Poorly controlled diabetes mellitus ICD Codes: E11.65 - Type 2 diabetes mellitus with hyperglycemia SNOMED: 59531563, 697202361 (4) MDD (major depressive disorder), recurrent episode, moderate ICD Codes: F33.1 - Major depressive disorder, recurrent, moderate SNOMED: 81564690, 517847904 Assessment/Plan: reduce Levemir to 30 units daily Novolog 6 units ac tid NISS ac / hs Subjective Allergies: Coded Allergies: METFORMIN (Verified Allergy, Unknown, 10/09/18) Vomiting Subjective events noted glucose values improved Item Value Date Time Bedside Blood Glucose 227 mg/dl H 12/10/19 1843 Bedside Blood Glucose 151 mg/dl H 12/10/19 1232 Bedside Blood Glucose 168 mg/dl H 12/10/19 0845 Bedside Blood Glucose 168 mg/dl H 12/10/19 0630 Bedside Blood Glucose 162 mg/dl H 12/09/19 2054 Bedside Blood Glucose 176 mg/dl H 12/09/19 1743 Objective Last 24 Hour Vital Signs Date Time Temp Pulse Resp B/P (MAP) Pulse Ox O2 Delivery O2 Flow Rate FiO2 12/10/19 16:00 97.8 62 18 148/87 (107) 96 12/10/19 12:26 66 138/78 12/10/19 12:00 97.8 66 20 138/78 (98) 97 12/10/19 11:50 Room Air 12/10/19 09:00 Room Air 12/10/19 04:00 98.0 77 18 145/89 (107) 96 12/10/19 00:00 98.3 72 16 149/90 (109) 96 12/09/19 20:43 Room Air 12/09/19 20:00 72 16 145/83 (103) 96 Intake and Output 12/09/19 12/10/19 19:00 07:00 Intake Total 460 ml 1000 ml Output Total 1200 ml Balance 460 ml -200 ml Intake Oral 460 ml 420 ml IV Total 580 ml Output Urine Total 1200 ml # Voids 2 3 Laboratory Tests 12/10/19 05:00: Urine Color Pale yellow, Urine Appearance Clear, Urine pH 7, Urine Specific [place] 1.005, Urine Protein 2+H, Urine Glucose (UA) 3+H, Urine Ketones Negative , Urine Blood Negative, Urine Nitrite Negative, Urine Bilirubin Negative, Urine Urobilinogen Normal, Urine Leukocyte Esterase Negative, Urine RBC 0, Urine WBC 0 , Urine Squamous Epithelial Cells Occasional, Urine Bacteria Occasional, Urine Random Sodium 163H 12/10/19 06:00: White Blood Count 5.5, Red Blood Count 4.80, Hemoglobin 13.3L, Hematocrit 40.3L , Mean Corpuscular Volume 84, Mean Corpuscular Hemoglobin 27.6, Mean Corpuscular Hemoglobin Concent 32.9, Red Cell Distribution Width 13.2, Platelet Count 179, Mean Platelet Volume 5.5L, Neutrophils (%) (Auto) 72.5, Lymphocytes ( %) (Auto) 16.0L, Monocytes (%) (Auto) 7.1, Eosinophils (%) (Auto) 3.7H, Basophils (%) (Auto) 0.8, Sodium Level 138, Potassium Level 4.5, Chloride Level 104, Carbon Dioxide Level 24, Anion Gap 10, Blood Urea Nitrogen 25H, Creatinine 2.3H, Estimat Glomerular Filtration Rate 30.1, Glucose Level 190#H, Hemoglobin A1c 11.6H, Lactic Acid Level 0.80, Uric Acid 5.3, Calcium Level 7.7L, Phosphorus Level 2.7, Magnesium Level 2.1, Total Bilirubin 0.3, Gamma Glutamyl Transpeptidase 26, Aspartate Amino Transf (AST/SGOT) 38H, Alanine Aminotransferase (ALT/SGPT) 50, Alkaline Phosphatase 60, Total Creatine Kinase 183, Troponin I 0.000, C-Reactive Protein, Quantitative 2.3H, Pro-B-Type Natriuretic Peptide 331H, Total Protein 7.2, Albumin 3.3L, Globulin 3.9, Albumin /Globulin Ratio 0.8L, Triglycerides Level 155H, Cholesterol Level 144, LDL Cholesterol 77, HDL Cholesterol 33L, Cholesterol/HDL Ratio 4.4, Thyroid Stimulating Hormone (TSH) 0.925 Height (Feet): 5 Height (Inches): 11.00 Weight (Pounds): 208 General Appearance: no apparent distress Neck: normal alignment Cardiovascular: normal rate Respiratory/Chest: lungs clear Abdomen: normal bowel sounds Objective Current Medications Medications (Trade) Dose Ordered Sig/Aylin Route PRN Reason Start Time Stop Time Status Last Admin Dose Admin Acetaminophen (Tylenol) 650 mg Q4H PRN ORAL Mild Pain/Temp > 100.5 12/09/19 06:45 01/08/20 06:44 12/10/19 05:02 Acetaminophen/ Hydrocodone Bitart ([place] 10/325) 1 tab Q4H PRN ORAL Pain Scale (4-6) 12/09/19 08:45 12/16/19 08:44 Albuterol/ Ipratropium (Albuterol/ Ipratropium) 3 ml Q4H PRN HHN Shortness of Breath 12/09/19 06:30 12/14/19 06:29 Amlodipine Besylate (Norvasc) 5 mg DAILY ORAL 12/11/19 09:00 01/10/20 08:59 Bisacodyl (Dulcolax) 10 mg DAILYPRN PRN RECTAL Constipation 12/09/19 06:45 01/08/20 06:44 Calcium Carbonate (Tums) 500 mg THREE TIMES A DAY ORAL 12/10/19 13:00 01/09/20 12:59 12/10/19 12:25 Cetylpyridinium Chloride (Cepacol) 1 lozg Q6H PRN ORAL For Cough 12/09/19 06:50 01/08/20 06:49 12/10/19 12:31 Clonidine HCl (Catapres TTS-3) 1 patch QWEEK TDERMAL 12/09/19 14:00 01/08/20 13:59 12/09/19 14:09 Daptomycin 600 mg/ Sodium Chloride 55 ml @ 100 mls/hr Q48H IV 12/09/19 18:00 12/16/19 17:59 12/09/19 18:07 Dextrose (Dextrose 50%) 25 ml Q30M PRN IV Hypoglycemia 12/09/19 06:30 01/08/20 06:29 Dextrose (Dextrose 50%) 50 ml Q30M PRN IV Hypoglycemia 12/09/19 06:30 01/08/20 06:29 Docusate Sodium (Colace) 100 mg TID ORAL 12/09/19 13:00 01/08/20 08:59 Ergocalciferol (Drisdol) 50,000 intlu QWEEK ORAL 12/10/19 13:00 01/09/20 12:59 12/10/19 16:41 Escitalopram Oxalate (Lexapro) 10 mg DAILY ORAL 12/09/19 09:00 01/08/20 08:59 12/10/19 08:44 Gabapentin (Neurontin) 300 mg TID ORAL 12/09/19 09:00 01/08/20 08:59 12/10/19 12:25 Heparin Sodium (Porcine) (Heparin 5000 units/ml) 5,000 units EVERY 12 HOURS SUBQ 12/09/19 09:00 01/08/20 08:59 Hydralazine HCl (Apresoline) 25 mg Q4H PRN ORAL SBP>160 12/09/19 06:45 01/08/20 06:44 Hydrogen Peroxide (Hydrogen Peroxide) 1 applic DAILY TOPIC 12/10/19 09:00 01/09/20 08:59 12/10/19 08:47 Insulin Aspart (NovoLOG) BEFORE MEALS AND HS SUBQ 12/09/19 07:00 01/08/20 06:59 12/10/19 18:43 Insulin Detemir (Levemir) 30 units Q12HR SUBQ 12/09/19 10:00 01/08/20 09:59 12/10/19 08:45 Magnesium Hydroxide (Mom) 30 ml DAILYPRN PRN ORAL Constipation 12/09/19 06:45 01/08/20 06:44 Meropenem 1 gm/ Sodium Chloride 55 ml @ 110 mls/hr Q12H IVPB 12/09/19 17:00 12/14/19 16:59 12/10/19 18:41 Metoclopramide HCl (Reglan) 10 mg THREE TIMES A DAY ORAL 12/09/19 13:00 01/08/20 12:59 12/10/19 12:25 Morphine Sulfate (Morphine Sulfate) 2 mg Q8H PRN IVP Severe Pain (Pain Scale 7-10) 12/09/19 08:45 12/16/19 08:44 12/10/19 06:09 Ondansetron HCl (Zofran) 4 mg Q6H PRN IVP Nausea & Vomiting 12/09/19 10:30 01/08/20 10:29 12/10/19 00:52 Pantoprazole (Protonix) 40 mg EVERY 12 HOURS ORAL 12/10/19 21:00 01/09/20 20:59 Quetiapine Fumarate (SEROqueL) 100 mg TWICE A DAY ORAL 12/09/19 09:00 01/08/20 08:59 12/09/19 09:55 Sodium Chloride 1,000 ml @ 75 mls/hr [id number] IV 12/09/19 11:58 01/08/20 11:57 12/10/19 05:00 Binh Borges MD Dec 10, 2019 18:58
--- NOTE | 2019-12-10 19:28 | NUR ---
HAND-OFF: Report given to Kyleigh ANTONIO.
--- NOTE | 2019-12-10 19:52 | NUR ---
NURSE NOTES: Received patient awake, alert, verbal, eating his dinner.
[2019-12-10 20:11] VITALS: BP 141/75
--- NOTE | 2019-12-10 20:37 | Diagnostic Imaging Report ---
Indication: Bilateral leg pain Technique: Grayscale and duplex images of the bilateral lower extremity arteries Comparison: 06/04/2019 Findings: The right, common femoral, profunda femoral, superficial femoral artery waveforms are all biphasic, slight blunting of the systolic peaks noted. Popliteal artery waveform is only borderline biphasic, but the proximal anterior tibial artery waveform is triphasic. The posterior tibial artery waveform is borderline monophasic but there is no significant dampening of the systolic peak only slight decreased amplitude. The dorsalis pedis artery waveforms is monophasic. The peroneal artery is not visualized. Findings are similar to the prior study. On the left, biphasic waveforms with sharp systolic peaks are seen in the common femoral, profunda femoral, superficial femoral and popliteal arteries. The posterior tibial artery waveform is borderline biphasic with preserved flow velocities and sharp systolic peaks. The dorsalis artery demonstrates dampening of the waveform. The peroneal artery is not well visualized but appears to be patent. Findings are similar to the prior exam. Impression: Bilaterally, no definite significant suprageniculate disease. On the right, there is evidence of at least mild tibial vessel disease and likely occlusion of the right peroneal artery. On the left, there is evidence of at least mild tibial vessel disease Findings are similar to the previous exam of 06/04/2019
[2019-12-11 00:08] VITALS: BP 153/82
--- NOTE | 2019-12-11 00:30 | Consultation ---
DATE OF CONSULTATION: 12/10/2019 CONSULTING PHYSICIAN: Sushil Ferguson M.D. REFERRING PHYSICIANS: 1. Omar Bright D.P.M. 2. Dexter Haas M.D. REASON FOR CONSULTATION: Bilateral foot wound ulceration and Charcot deformity. HISTORY OF PRESENT ILLNESS: This is a 49-year-old male with history of insulin-dependent diabetes mellitus, hypertension, and obesity. The patient has Charcot foot deformity with prior history of surgery the patient has developed bilateral plantar wound ulceration, left worse than right. Vascular Surgery was consulted for further evaluation. PAST MEDICAL HISTORY: As above. History of bilateral Charcot foot deformity, diabetes mellitus, obesity, hypertension, and prior history of foot debridement. MEDICATIONS: See attached MAR. ALLERGIES: No known drug allergies. SOCIAL HISTORY: Denies any history of smoking, drugs, or alcohol abuse. FAMILY HISTORY: Unremarkable. SYSTEM REVIEW: CARDIOVASCULAR: No history of chest pain or palpitations. PULMONARY: No cough. No hemoptysis. GASTROINTESTINAL: No history of abdominal pain, constipation, or diarrhea. GENITOURINARY: No urinary symptoms, frequency, or hematuria NEUROLOGIC: No history of strokes or seizures. PHYSICAL EXAMINATION: VITAL SIGNS: The patient is afebrile 97 heart rate 80, blood pressure 150/70, RR 12/min LUNGS: Clear to auscultation bilaterally. HEART: Regular rate and rhythm. ABDOMEN: Soft and nontender. EXTREMITIES: There are palpable femoral pulses, palpable popliteal and posterior tibial pulses bilaterally. Dorsalis pedis pulses are absent. Feet are warm. Left foot plantar ulceration appears with clinical osteomyelitis with palpable bone in wound bed. Plantar wound ulceration with extensive Charcot deformity of the foot with deformity of the bone. IMPRESSION: 1. Palpable 3+ posterior tibial pulses with adequate perfusion in the foot with bilateral foot wound ulcerations, left worse than right with clinical osteomyelitis. 2. History of Charcot foot deformity. 3. Diabetes mellitus. 4. Hypertension. PLAN AND RECOMMENDATIONS: 1. Noninvasive duplex imaging. 2. Antibiotics per infectious diseases service. 3. DVT and decubitus precautions. 4. Cleared for podiatry debridement if indicated. Sushil Ferguson M.D. DR: HARLEY JOB#: [id number] CC: JOVON
[2019-12-11 04:02] VITALS: BP 158/88
[2019-12-11] MEDS: Meropenem 1 GM in NS 55 ML IVPB SCH ×2 (04:57→17:10)
[2019-12-11] MEDS: Morphine Sulfate 2mg/ml Inj(IV/IM USE ONLY) IVP PRN ×2 (05:10→20:38)
[2019-12-11] MEDS: NovoLOG Insulin Flexpen SUBQ SCH ×8 (05:57→21:05)
[2019-12-11 06:28] LABS: BASOPHILS % (AUTO) 0.7 % (0.0-2.0); EOSINOPHILS % (AUTO) 3.8 % (0.0-3.0); HEMATOCRIT 40.2 % (42.0-52.0); HEMOGLOBIN 13.6 G/DL (14.2-18.0); LYMPHOCYTES % (AUTO) 21.9 % (20.0-45.0); MEAN CORPUSCULAR VOLUME 85 FL (80-99); MONOCYTES % (AUTO) 5.7 % (1.0-10.0); NEUTROPHILS % (AUTO) 67.9 % (45.0-75.0); PLATELET COUNT 168 K/UL (150-450); RED BLOOD COUNT 4.76 M/UL (4.70-6.10); RED CELL DISTRIBUTION WIDTH 13.1 % (11.6-14.8); WHITE BLOOD COUNT 4.5 K/UL (4.8-10.8)
--- NOTE | 2019-12-11 06:55 | General Progress Note ---
Assessment/Plan Problem List: (1) Foot ulcer due to secondary DM ICD Codes: E13.621 - Other specified diabetes mellitus with foot ulcer; L97.509 - Non-pressure chronic ulcer of other part of unspecified foot with unspecified severity SNOMED: 4475630, 612335325 (2) Diabetic nephropathy ICD Codes: E11.21 - Type 2 diabetes mellitus with diabetic nephropathy SNOMED: 19114062, 585696624 (3) Poorly controlled diabetes mellitus ICD Codes: E11.65 - Type 2 diabetes mellitus with hyperglycemia SNOMED: 11227426, 086841021 (4) MDD (major depressive disorder), recurrent episode, moderate ICD Codes: F33.1 - Major depressive disorder, recurrent, moderate SNOMED: 57407976, 538729263 Assessment/Plan: change Levemir to 30 units qam and 12 units qhs continue Novolog 6 units ac tid NISS ac / hs Subjective Allergies: Coded Allergies: METFORMIN (Verified Allergy, Unknown, 10/09/18) Vomiting Subjective events noted fasting glucose elevated Item Value Date Time Bedside Blood Glucose 298 mg/dl H 12/11/19 0558 Bedside Blood Glucose 227 mg/dl H 12/10/19 1843 Bedside Blood Glucose 151 mg/dl H 12/10/19 1232 Bedside Blood Glucose 168 mg/dl H 12/10/19 0845 Bedside Blood Glucose 168 mg/dl H 12/10/19 0630 Objective Last 24 Hour Vital Signs Date Time Temp Pulse Resp B/P (MAP) Pulse Ox O2 Delivery O2 Flow Rate FiO2 12/11/19 05:40 98.4 12/11/19 04:02 98.4 69 16 158/88 (111) 99 12/11/19 00:30 98.6 12/11/19 00:08 98.6 73 12 153/82 (105) 97 12/10/19 20:16 Room Air 12/10/19 20:11 97.7 81 12 141/75 (97) 100 12/10/19 16:00 97.8 62 18 148/87 (107) 96 12/10/19 12:26 66 138/78 12/10/19 12:00 97.8 66 20 138/78 (98) 97 12/10/19 11:50 Room Air 12/10/19 09:00 Room Air Intake and Output 12/10/19 12/11/19 19:00 07:00 Intake Total 870 ml 1185 ml Balance 870 ml 1185 ml Intake Oral 120 ml IV Total 750 ml 785 ml Other 400 ml # Voids 1 2 # Bowel Movements 1 Laboratory Tests 12/11/19 05:50: White Blood Count [Pending], Red Blood Count [Pending], Hemoglobin [Pending], Hematocrit [Pending], Mean Corpuscular Volume [Pending], Mean Corpuscular Hemoglobin [Pending], Mean Corpuscular Hemoglobin Concent [Pending], Red Cell Distribution Width [Pending], Platelet Count [Pending], Mean Platelet Volume [ Pending], Neutrophils (%) (Auto) [Pending], Lymphocytes (%) (Auto) [Pending], Monocytes (%) (Auto) [Pending], Eosinophils (%) (Auto) [Pending], Basophils (%) (Auto) [Pending], Sodium Level [Pending], Potassium Level [Pending], Chloride Level [Pending], Carbon Dioxide Level [Pending], Blood Urea Nitrogen [Pending], Creatinine [Pending], Estimat Glomerular Filtration Rate [Pending], Glucose Level [Pending], Uric Acid [Pending], Calcium Level [Pending], Phosphorus Level [Pending], Magnesium Level [Pending], Total Bilirubin [Pending], Aspartate Amino Transf (AST/SGOT) [Pending], Alanine Aminotransferase (ALT/SGPT) [Pending] , Alkaline Phosphatase [Pending], C-Reactive Protein, Quantitative [Pending], Pro-B-Type Natriuretic Peptide [Pending], Total Protein [Pending], Albumin [ Pending], Globulin [Pending] Height (Feet): 5 Height (Inches): 11.00 Weight (Pounds): 208 General Appearance: no apparent distress Neck: normal alignment Cardiovascular: normal rate Respiratory/Chest: lungs clear Abdomen: normal bowel sounds Objective Current Medications Medications (Trade) Dose Ordered Sig/Aylin Route PRN Reason Start Time Stop Time Status Last Admin Dose Admin Acetaminophen (Tylenol) 650 mg Q4H PRN ORAL Mild Pain/Temp > 100.5 12/09/19 06:45 01/08/20 06:44 12/10/19 23:55 Acetaminophen/ Hydrocodone Bitart ([place] 10/325) 1 tab Q4H PRN ORAL Pain Scale (4-6) 12/09/19 08:45 12/16/19 08:44 Albuterol/ Ipratropium (Albuterol/ Ipratropium) 3 ml Q4H PRN HHN Shortness of Breath 12/09/19 06:30 12/14/19 06:29 Amlodipine Besylate (Norvasc) 5 mg DAILY ORAL 12/11/19 09:00 01/10/20 08:59 Bisacodyl (Dulcolax) 10 mg DAILYPRN PRN RECTAL Constipation 12/09/19 06:45 01/08/20 06:44 Calcium Carbonate (Tums) 500 mg THREE TIMES A DAY ORAL 12/10/19 13:00 01/09/20 12:59 12/10/19 12:25 Cetylpyridinium Chloride (Cepacol) 1 lozg Q6H PRN ORAL For Cough 12/09/19 06:50 01/08/20 06:49 12/10/19 23:59 Clonidine HCl (Catapres TTS-3) 1 patch QWEEK TDERMAL 12/09/19 14:00 01/08/20 13:59 12/09/19 14:09 Daptomycin 600 mg/ Sodium Chloride 55 ml @ 100 mls/hr Q48H IV 12/09/19 18:00 12/16/19 17:59 12/09/19 18:07 Dextrose (Dextrose 50%) 25 ml Q30M PRN IV Hypoglycemia 12/10/19 19:00 01/09/20 18:59 Dextrose (Dextrose 50%) 50 ml Q30M PRN IV Hypoglycemia 12/10/19 19:00 01/09/20 18:59 Docusate Sodium (Colace) 100 mg TID ORAL 12/09/19 13:00 01/08/20 08:59 Ergocalciferol (Drisdol) 50,000 intlu QWEEK ORAL 12/10/19 13:00 01/09/20 12:59 12/10/19 16:41 Escitalopram Oxalate (Lexapro) 10 mg DAILY ORAL 12/09/19 09:00 01/08/20 08:59 12/10/19 08:44 Gabapentin (Neurontin) 300 mg TID ORAL 12/09/19 09:00 01/08/20 08:59 12/10/19 12:25 Heparin Sodium (Porcine) (Heparin 5000 units/ml) 5,000 units EVERY 12 HOURS SUBQ 12/09/19 09:00 01/08/20 08:59 12/10/19 21:22 Hydralazine HCl (Apresoline) 25 mg Q4H PRN ORAL SBP>160 12/09/19 06:45 01/08/20 06:44 Hydrogen Peroxide (Hydrogen Peroxide) 1 applic DAILY TOPIC 12/10/19 09:00 01/09/20 08:59 12/10/19 08:47 Insulin Aspart (NovoLOG) BEFORE MEALS AND HS SUBQ 12/09/19 07:00 01/08/20 06:59 12/11/19 05:58 Insulin Aspart (NovoLOG) 6 units NOVOTIAC SUBQ 12/11/19 06:30 01/10/20 06:29 12/11/19 05:57 Insulin Detemir (Levemir) 30 units DAILY SUBQ 12/11/19 09:00 01/08/20 09:59 Magnesium Hydroxide (Mom) 30 ml DAILYPRN PRN ORAL Constipation 12/09/19 06:45 01/08/20 06:44 Meropenem 1 gm/ Sodium Chloride 55 ml @ 110 mls/hr Q12H IVPB 12/09/19 17:00 12/14/19 16:59 12/11/19 04:57 Metoclopramide HCl (Reglan) 10 mg THREE TIMES A DAY ORAL 12/09/19 13:00 01/08/20 12:59 12/10/19 12:25 Morphine Sulfate (Morphine Sulfate) 2 mg Q8H PRN IVP Severe Pain (Pain Scale 7-10) 12/09/19 08:45 12/16/19 08:44 12/11/19 05:10 Ondansetron HCl (Zofran) 4 mg Q6H PRN IVP Nausea & Vomiting 12/09/19 10:30 01/08/20 10:29 12/11/19 05:09 Pantoprazole (Protonix) 40 mg EVERY 12 HOURS ORAL 12/10/19 21:00 01/09/20 20:59 12/10/19 21:20 Quetiapine Fumarate (SEROqueL) 100 mg TWICE A DAY ORAL 12/09/19 09:00 01/08/20 08:59 12/09/19 09:55 Sodium Chloride 1,000 ml @ 75 mls/hr [id number] IV 12/09/19 11:58 01/08/20 11:57 12/10/19 21:24 Binh Borges MD Dec 11, 2019 06:55
[2019-12-11 07:30] LABS: ALANINE AMINOTRANSFERASE 40 U/L (12-78); ALBUMIN 3.2 G/DL (3.4-5.0); ALBUMIN/GLOBULIN RATIO 0.8 (1.0-2.7); ALKALINE PHOSPHATASE 66 U/L (46-116); ANION GAP 11 mmol/L (5-15); ASPARTATE AMINO TRANSFERASE 27 U/L (15-37); BILIRUBIN,TOTAL 0.2 MG/DL (0.2-1.0); BLOOD UREA NITROGEN 19 mg/dL (7-18); CALCIUM 7.9 MG/DL (8.5-10.1); CARBON DIOXIDE 23 MMOL/L (21-32); CHLORIDE 103 MMOL/L (98-107); CREATININE 1.9 MG/DL (0.55-1.30); PHOSPHORUS 2.7 MG/DL (2.5-4.9); POTASSIUM 4.4 MMOL/L (3.5-5.1); SODIUM 137 MMOL/L (136-145)
--- NOTE | 2019-12-11 07:34 | NUR ---
HAND-OFF: Report given to Catalino Day RN.
--- NOTE | 2019-12-11 07:59 | NUR ---
NURSE NOTES: received report from PACO Bernstein. patient in bed. alert. oriented. verbally responsive. no respiratory distress noted. no pain at this time. IV on LH 24g running NS@75/hr. both foot dressing intact and dry. contact isolation. PPE at all times. own w/c on the bed side. bed in the lowest position and locked. call light within reach. will continue to provide plan of care.
[2019-12-11 08:00] VITALS: BP 155/87
[2019-12-11] MEDS: Tums 500mg ORAL SCH ×3 (08:46→18:00)
[2019-12-11] MEDS: Heparin 5000 units/ml inj SUBQ SCH ×2 (08:46→20:36)
[2019-12-11] MEDS: Docusate 100mg cap ORAL SCH ×3 (08:48→18:00)
[2019-12-11] MEDS: Hydrogen Peroxide 473ml Bottle TOPIC SCH (08:49)
[2019-12-11] MEDS: Levemir Flexpen SUBQ SCH (08:54)
--- NOTE | 2019-12-11 09:37 | Nephrology Progress Note ---
Assessment/Plan Problem List: (1) Renal failure (ARF), acute on chronic Assessment: Cr lowering (2) Diabetic nephropathy (3) Foot ulcer due to secondary DM (4) Hyperglycemia Assessment Acute on chronic renal failure- Diabetic Nephropathy DM OOC Anemia Electrolyte imbalance HTN EJ Fx 55% previously Kidney COOPER unremarkable previously Plan adjust BP meds Protonix to PO Reglan Keep BP and BS in check avoid nephrotoxics monitor renal parameters Slow hydrate Urine studies NS bolus as needed Subjective ROS Limited/Unobtainable: No Constitutional: Reports: malaise Objective Objective Last 24 Hour Vital Signs Date Time Temp Pulse Resp B/P (MAP) Pulse Ox O2 Delivery O2 Flow Rate FiO2 12/11/19 08:47 60 155/87 12/11/19 08:00 97.9 60 19 155/87 (109) 97 12/11/19 05:40 98.4 12/11/19 04:02 98.4 69 16 158/88 (111) 99 12/11/19 00:30 98.6 12/11/19 00:08 98.6 73 12 153/82 (105) 97 12/10/19 20:16 Room Air 12/10/19 20:11 97.7 81 12 141/75 (97) 100 12/10/19 16:00 97.8 62 18 148/87 (107) 96 12/10/19 12:26 66 138/78 12/10/19 12:00 97.8 66 20 138/78 (98) 97 12/10/19 11:50 Room Air Intake and Output 12/10/19 12/11/19 19:00 07:00 Intake Total 870 ml 1260 ml Balance 870 ml 1260 ml Intake Oral 120 ml IV Total 750 ml 860 ml Other 400 ml # Voids 1 2 # Bowel Movements 1 Laboratory Tests 12/11/19 05:50: White Blood Count 4.5L, Red Blood Count 4.76, Hemoglobin 13.6L, Hematocrit 40.2L , Mean Corpuscular Volume 85, Mean Corpuscular Hemoglobin 28.6, Mean Corpuscular Hemoglobin Concent 33.8, Red Cell Distribution Width 13.1, Platelet Count 168, Mean Platelet Volume 6.1L, Neutrophils (%) (Auto) 67.9, Lymphocytes ( %) (Auto) 21.9, Monocytes (%) (Auto) 5.7, Eosinophils (%) (Auto) 3.8H, Basophils (%) (Auto) 0.7, Sodium Level 137, Potassium Level 4.4, Chloride Level 103, Carbon Dioxide Level 23, Anion Gap 11, Blood Urea Nitrogen 19H, Creatinine 1.9H, Estimat Glomerular Filtration Rate 37.6, Glucose Level 320#H, Uric Acid 4.9, Calcium Level 7.9L, Phosphorus Level 2.7, Magnesium Level 2.2, Total Bilirubin 0.2, Aspartate Amino Transf (AST/SGOT) 27, Alanine Aminotransferase ( ALT/SGPT) 40, Alkaline Phosphatase 66, C-Reactive Protein, Quantitative 2.3H, Pro-B-Type Natriuretic Peptide 448H, Total Protein 7.1, Albumin 3.2L, Globulin 3.9, Albumin/Globulin Ratio 0.8L Height (Feet): 5 Height (Inches): 11.00 Weight (Pounds): 208 General Appearance: no apparent distress Cardiovascular: normal rate Respiratory/Chest: decreased breath sounds Abdomen: distended Objective no change Ernesto Frost MD Dec 11, 2019 09:37
[2019-12-11] MEDS: Vitamin D 1000 IU Tab ORAL SCH (10:45)
--- NOTE | 2019-12-11 11:37 | Podiatric Progress Note ---
Assessment/Plan Patient Walker Chahal is a 49 year old male who was admitted on Dec 09, 2019 at 03:24 with Problems: (1) Diabetic nephropathy (2) Charcot foot due to diabetes mellitus (3) Poorly controlled diabetes mellitus (4) Foot ulcer due to secondary DM Assessment/Plan Patient to continue local wound cafe. Iv abx per ID Patient to f/u with his metallurgical engineering technician for local wound care and management. 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 patient related previous MRI positive osteo and his metallurgical engineering technician has taken him to surgery for scraping the infected bone and has been following him weekly. Objective Exam Last 24 Hour Vital Signs Date Time Temp Pulse Resp B/P (MAP) Pulse Ox O2 Delivery O2 Flow Rate FiO2 12/11/19 10:02 67 20 97 Room Air 21 12/11/19 09:00 Room Air 12/11/19 08:47 60 155/87 12/11/19 08:00 97.9 60 19 155/87 (109) 97 12/11/19 05:40 98.4 12/11/19 04:02 98.4 69 16 158/88 (111) 99 12/11/19 00:30 98.6 12/11/19 00:08 98.6 73 12 153/82 (105) 97 12/10/19 20:16 Room Air 12/10/19 20:11 97.7 81 12 141/75 (97) 100 12/10/19 16:00 97.8 62 18 148/87 (107) 96 12/10/19 12:26 66 138/78 12/10/19 12:00 97.8 66 20 138/78 (98) 97 12/10/19 11:50 Room Air Laboratory Tests Test 12/11/19 05:50 White Blood Count 4.5 K/UL (4.8-10.8) L Red Blood Count 4.76 M/UL (4.70-6.10) Hemoglobin 13.6 G/DL (14.2-18.0) L Hematocrit 40.2 % (42.0-52.0) L Mean Corpuscular Volume 85 FL (80-99) Mean Corpuscular Hemoglobin 28.6 PG (27.0-31.0) Mean Corpuscular Hemoglobin Concent 33.8 G/DL (32.0-36.0) Red Cell Distribution Width 13.1 % (11.6-14.8) Platelet Count 168 K/UL (150-450) Mean Platelet Volume 6.1 FL (6.5-10.1) L Neutrophils (%) (Auto) 67.9 % (45.0-75.0) Lymphocytes (%) (Auto) 21.9 % (20.0-45.0) Monocytes (%) (Auto) 5.7 % (1.0-10.0) Eosinophils (%) (Auto) 3.8 % (0.0-3.0) H Basophils (%) (Auto) 0.7 % (0.0-2.0) Sodium Level 137 MMOL/L (136-145) Potassium Level 4.4 MMOL/L (3.5-5.1) Chloride Level 103 MMOL/L (98-107) Carbon Dioxide Level 23 MMOL/L (21-32) Anion Gap 11 mmol/L (5-15) Blood Urea Nitrogen 19 mg/dL (7-18) H Creatinine 1.9 MG/DL (0.55-1.30) H Estimat Glomerular Filtration Rate 37.6 mL/min (>60) Glucose Level 320 MG/DL (74-106) #H Uric Acid 4.9 MG/DL (2.6-7.2) Calcium Level 7.9 MG/DL (8.5-10.1) L Phosphorus Level 2.7 MG/DL (2.5-4.9) Magnesium Level 2.2 MG/DL (1.8-2.4) Total Bilirubin 0.2 MG/DL (0.2-1.0) Aspartate Amino Transf (AST/SGOT) 27 U/L (15-37) Alanine Aminotransferase (ALT/SGPT) 40 U/L (12-78) Alkaline Phosphatase 66 U/L (46-116) C-Reactive Protein, Quantitative 2.3 mg/dL (0.00-0.90) H Pro-B-Type Natriuretic Peptide 448 pg/mL (0-125) H Total Protein 7.1 G/DL (6.4-8.2) Albumin 3.2 G/DL (3.4-5.0) L Globulin 3.9 g/dL Albumin/Globulin Ratio 0.8 (1.0-2.7) L Microbiology Date/Time Source Procedure Growth Status 12/09/19 02:00 Blood Blood Culture - Preliminary NO GROWTH AFTER 48 HOURS Resulted 12/09/19 05:10 Rectum - Final NO CARBAPENEM-RESISTANT ENTEROBACTERI... Complete Dermatological Dermatological Narrative no changes from initial assessment Omar Bright DPM Dec 11, 2019 11:37
[2019-12-11 12:00] VITALS: BP 120/76
--- NOTE | 2019-12-11 12:08 | NUR ---
NURSE NOTES: patient c/o difficulty sleeping at night. Notified Dr. Haas and received order of ambien 5mg tab PO HSPRN. read back order. order noted and carried out.
--- NOTE | 2019-12-11 12:12 | Diagnostic Imaging Report ---
Indication: Foot pain Technique: 2 views left foot Comparison: 08/10/2019. Also MRI scans dated 12/10/2019 and 08/13/2019 Findings: Again demonstrated is amputation of the fifth digit at the level of the midshaft metatarsal. Amputation margins appear clean. Again demonstrated is fusion of the fourth metatarsal phalangeal joint and possibly ankylosis as well of the fourth proximal interphalangeal joint. There is hammertoe deformity. There is also hammertoe deformity of the third digit. There are degenerative changes of the first metatarsophalangeal joint. There is complete disruption of the midfoot, with dislocations chronic destructive changes of all of the cuneiforms as well as of the navicular and cuboid. The metatarsals essentially articulate directly with the talus and the calcaneus. However, this pattern is unchanged from the prior exam. No definite acute osseous erosions. There is a small dorsal also noted, also described on recent MRI scan. Impression: Extensive chronic midfoot deformity, presumably on the basis of Charcot changes, as described, unchanged since prior study of 08/10/2019 Small plantar surface ulcer Postsurgical changes, as described Other degenerative changes as noted
--- NOTE | 2019-12-11 12:13 | Diagnostic Imaging Report ---
Indication: Foot pain Technique: 2 views right foot Comparison: 06/03/2019, MRI images dated 12/10/2019 and 08/13/2019 Findings: Extensive subluxations and destructive changes of the bones of the midfoot as well as of the proximal fourth metatarsal are noted. This is progressive since the prior plain radiograph, there is similar to findings demonstrated on both the recent and prior MRI. Again demonstrated is amputation of the first digit at the level of the interphalangeal joint. There is severe degenerative changes of the fourth and fifth metatarsophalangeal joints Impression: Extensive abnormality, particularly of the midfoot, as described. These are consistent with Charcot changes. These have progressed significantly, however, since 06/03/2019, although do appear similar to MRI of 08/13/2019. Rapid progression in that time may been due to associated infection as well. Amputation of the first digit at the level of the interphalangeal joint again demonstrated. Other distal degenerative changes as described
[2019-12-11] MEDS ORDERED: Zolpidem 5mg tab ORAL PRN (12:15)
--- NOTE | 2019-12-11 13:36 | NUR ---
RD ASSESSMENT & RECOMMENDATIONS SEE CARE ACTIVITY FOR COMPLETE ASSESSMENT DAILY ESTIMATED NEEDS: Needs based on Wound, uncontrolled DM, 83kg abw 20-25 kcals/kg 7671-3956 total kcals 1.25-1.5 g protein/kg 103-124 g total protein 25-30 mL/kg 0204-9968 total fluid mLs NUTRITION DIAGNOSIS: * Increased protein intake needs R/T wound healing as evidenced by admitted w/ ulcerations at midfoot sub tarsal area. * Altered nutrition related lab values R/T uncontrolled diabetes as evidenced by elev A1C of 11.6 (increased from 10.3 in Aug 2019), elev POC glu ([phone] 227), elev BGs (320 190). CURRENT DIET: CCHO MED PO DIET RECOMMENDATIONS: CCHO LOW, LOW NA + double protein portions ADDITIONAL RECOMMENDATIONS: 1) Calibrated bedscale wt 2) Wound healing: Add MVI x 1 and Vit C 500mg QD : Pt refused Edson 3) DM diet ed provided on 12/11 -> continue to educate as able, reinforcement needed. -> monitor for diet compliance 4) Monitor PO tolerance: admitted w/ c/o n/v
--- NOTE | 2019-12-11 14:32 | Infectious Diseases Prog Note ---
Assessment/Plan Problems: (1) Osteomyelitis of foot Assessment & Plan: was ruled out in the left foot , unclear whether he has it in the right foot and MRI couldn't rule out out will order bone scan to confirm , wound culture grew ESBL producing klebsiella Pneumonia here and Staph spp FROM [facility] , continue daptomycin , and meropenem for now pending bone scan . (2) Poorly controlled diabetes mellitus Assessment & Plan: recommend tight glycemic control to keep blood glucose between 100-140 (3) Foot ulcer due to secondary DM Assessment & Plan: with no evidence of underlying osteomyelitis at least on the left side . await bone scan to confirm and to rule out osteomyelitis on the right side , further care as per supplies packer , vascular eval is in progress Subjective Constitutional: Reports: fatigue, anorexia HEENT: Reports: no symptoms Respiratory: Reports: no symptoms Breasts: Reports: no symptoms Cardiovascular: Reports: no symptoms Gastrointestinal/Abdominal: Reports: no symptoms Genitourinary: Reports: no symptoms Neurologic: Reports: weakness Psychiatric: Reports: anxiety Skin: Reports: no symptoms Endocrine: Reports: no symptoms Hematologic: Reports: no symptoms Musculoskeletal: Reports: swelling Allergies: Coded Allergies: METFORMIN (Verified Allergy, Unknown, 10/09/18) Vomiting Subjective He was feeling better , was able to eat , no fever or chills, no draining from his feet wounds Objective Vital Signs Last 24 Hour Vital Signs Date Time Temp Pulse Resp B/P (MAP) Pulse Ox O2 Delivery O2 Flow Rate FiO2 12/11/19 12:00 97.6 66 19 120/76 (91) 96 12/11/19 10:02 67 20 97 Room Air 21 12/11/19 09:00 Room Air 12/11/19 08:47 60 155/87 12/11/19 08:00 97.9 60 19 155/87 (109) 97 12/11/19 05:40 98.4 12/11/19 04:02 98.4 69 16 158/88 (111) 99 12/11/19 00:30 98.6 12/11/19 00:08 98.6 73 12 153/82 (105) 97 12/10/19 20:16 Room Air 12/10/19 20:11 97.7 81 12 141/75 (97) 100 12/10/19 16:00 97.8 62 18 148/87 (107) 96 Height (Feet): 5 Height (Inches): 11.00 Weight (Pounds): 208 General Appearance: WD/WN, no acute distress HEENT: normocephalic, atraumatic, anicteric, mucous membranes moist, PERRL, supple, no JVD Respiratory/Chest: chest wall non-tender, lungs clear, normal breath sounds, no respiratory distress, no accessory muscle use Cardiovascular: normal peripheral pulses, normal rate, regular rhythm, no gallop/murmur, no JVD Abdomen: normal bowel sounds, soft, non tender, no organomegaly, non distended , no mass, no scars Genitourinary: normal external genitalia Extremities: no cyanosis, no clubbing Skin: no rash, no lesions, ulcers - on both feet 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 Complete 12/09/19 05:10 Rectum VRE Culture - Final NO VANCOMYCIN RESISTANT ENTEROCOCCUS ... Complete 12/09/19 03:25 Foot Left Gram Stain - Final Resulted 12/09/19 03:25 Wound Culture - Preliminary Klebsiella Pneumoniae Esbl Gram Negative Bacillus 2 Resulted 12/09/19 03:20 Foot Right Gram Stain - Final Resulted 12/09/19 03:20 Wound Culture - Preliminary Klebsiella Pneumoniae Esbl Resulted Laboratory Tests Test 12/11/19 05:50 White Blood Count 4.5 K/UL (4.8-10.8) L Red Blood Count 4.76 M/UL (4.70-6.10) Hemoglobin 13.6 G/DL (14.2-18.0) L Hematocrit 40.2 % (42.0-52.0) L Mean Corpuscular Volume 85 FL (80-99) Mean Corpuscular Hemoglobin 28.6 PG (27.0-31.0) Mean Corpuscular Hemoglobin Concent 33.8 G/DL (32.0-36.0) Red Cell Distribution Width 13.1 % (11.6-14.8) Platelet Count 168 K/UL (150-450) Mean Platelet Volume 6.1 FL (6.5-10.1) L Neutrophils (%) (Auto) 67.9 % (45.0-75.0) Lymphocytes (%) (Auto) 21.9 % (20.0-45.0) Monocytes (%) (Auto) 5.7 % (1.0-10.0) Eosinophils (%) (Auto) 3.8 % (0.0-3.0) H Basophils (%) (Auto) 0.7 % (0.0-2.0) Sodium Level 137 MMOL/L (136-145) Potassium Level 4.4 MMOL/L (3.5-5.1) Chloride Level 103 MMOL/L (98-107) Carbon Dioxide Level 23 MMOL/L (21-32) Anion Gap 11 mmol/L (5-15) Blood Urea Nitrogen 19 mg/dL (7-18) H Creatinine 1.9 MG/DL (0.55-1.30) H Estimat Glomerular Filtration Rate 37.6 mL/min (>60) Glucose Level 320 MG/DL (74-106) #H Uric Acid 4.9 MG/DL (2.6-7.2) Calcium Level 7.9 MG/DL (8.5-10.1) L Phosphorus Level 2.7 MG/DL (2.5-4.9) Magnesium Level 2.2 MG/DL (1.8-2.4) Total Bilirubin 0.2 MG/DL (0.2-1.0) Aspartate Amino Transf (AST/SGOT) 27 U/L (15-37) Alanine Aminotransferase (ALT/SGPT) 40 U/L (12-78) Alkaline Phosphatase 66 U/L (46-116) C-Reactive Protein, Quantitative 2.3 mg/dL (0.00-0.90) H Pro-B-Type Natriuretic Peptide 448 pg/mL (0-125) H Total Protein 7.1 G/DL (6.4-8.2) Albumin 3.2 G/DL (3.4-5.0) L Globulin 3.9 g/dL Albumin/Globulin Ratio 0.8 (1.0-2.7) L Current Medications Medications (Trade) Dose Ordered Sig/Aylin Route PRN Reason Start Time Stop Time Status Last Admin Dose Admin Acetaminophen (Tylenol) 650 mg Q4H PRN ORAL Mild Pain/Temp > 100.5 12/09/19 06:45 01/08/20 06:44 12/10/19 23:55 Acetaminophen/ Hydrocodone Bitart ([place] 10/325) 1 tab Q4H PRN ORAL Pain Scale (4-6) 12/09/19 08:45 12/16/19 08:44 Albuterol/ Ipratropium (Albuterol/ Ipratropium) 3 ml Q4H PRN HHN Shortness of Breath 12/09/19 06:30 12/14/19 06:29 Amlodipine Besylate (Norvasc) 5 mg BID ORAL 12/11/19 18:00 01/10/20 08:59 Bisacodyl (Dulcolax) 10 mg DAILYPRN PRN RECTAL Constipation 12/09/19 06:45 01/08/20 06:44 Calcium Carbonate (Tums) 500 mg THREE TIMES A DAY ORAL 12/10/19 13:00 01/09/20 12:59 12/11/19 08:46 Cetylpyridinium Chloride (Cepacol) 1 lozg Q6H PRN ORAL For Cough 12/09/19 06:50 01/08/20 06:49 12/11/19 09:03 Clonidine HCl (Catapres TTS-3) 1 patch QWEEK TDERMAL 12/09/19 14:00 01/08/20 13:59 12/09/19 14:09 Daptomycin 600 mg/ Sodium Chloride 55 ml @ 100 mls/hr Q24H IV 12/11/19 18:00 12/18/19 17:59 Dextrose (Dextrose 50%) 25 ml Q30M PRN IV Hypoglycemia 12/11/19 07:00 01/10/20 06:59 Dextrose (Dextrose 50%) 50 ml Q30M PRN IV Hypoglycemia 12/11/19 07:00 01/10/20 06:59 Docusate Sodium (Colace) 100 mg TID ORAL 12/09/19 13:00 01/08/20 08:59 Escitalopram Oxalate (Lexapro) 10 mg DAILY ORAL 12/09/19 09:00 01/08/20 08:59 12/11/19 08:47 Gabapentin (Neurontin) 300 mg TID ORAL 12/09/19 09:00 01/08/20 08:59 12/11/19 12:32 Heparin Sodium (Porcine) (Heparin 5000 units/ml) 5,000 units EVERY 12 HOURS SUBQ 12/09/19 09:00 01/08/20 08:59 12/10/19 21:22 Hydralazine HCl (Apresoline) 25 mg Q4H PRN ORAL SBP>160 12/09/19 06:45 01/08/20 06:44 Hydrogen Peroxide (Hydrogen Peroxide) 1 applic DAILY TOPIC 12/10/19 09:00 01/09/20 08:59 12/11/19 08:49 Insulin Aspart (NovoLOG) BEFORE MEALS AND HS SUBQ 12/09/19 07:00 01/08/20 06:59 12/11/19 12:03 Insulin Aspart (NovoLOG) 6 units NOVOTIAC SUBQ 12/11/19 06:30 01/10/20 06:29 12/11/19 12:04 Insulin Detemir (Levemir) 12 units BEDTIME SUBQ 12/11/19 21:00 01/10/20 20:59 Insulin Detemir (Levemir) 30 units DAILY SUBQ 12/11/19 09:00 01/08/20 09:59 12/11/19 08:54 Magnesium Hydroxide (Mom) 30 ml DAILYPRN PRN ORAL Constipation 12/09/19 06:45 01/08/20 06:44 Meropenem 1 gm/ Sodium Chloride 55 ml @ 110 mls/hr Q12H IVPB 12/09/19 17:00 12/14/19 16:59 12/11/19 04:57 Metoclopramide HCl (Reglan) 10 mg THREE TIMES A DAY ORAL 12/09/19 13:00 01/08/20 12:59 12/11/19 12:32 Morphine Sulfate (Morphine Sulfate) 2 mg Q8H PRN IVP Severe Pain (Pain Scale 7-10) 12/09/19 08:45 12/16/19 08:44 12/11/19 05:10 Ondansetron HCl (Zofran) 4 mg Q6H PRN IVP Nausea & Vomiting 12/09/19 10:30 01/08/20 10:29 12/11/19 05:09 Pantoprazole (Protonix) 40 mg EVERY 12 HOURS ORAL 12/10/19 21:00 01/09/20 20:59 12/11/19 08:47 Quetiapine Fumarate (SEROqueL) 100 mg TWICE A DAY ORAL 12/09/19 09:00 01/08/20 08:59 12/11/19 08:45 Vitamin D (Vitamin D) 3,000 intlu DAILY ORAL 12/11/19 09:37 01/10/20 09:36 12/11/19 10:45 Zolpidem Tartrate (Ambien) 5 mg HSPRN PRN ORAL Insomnia 12/11/19 12:15 12/18/19 12:14 Kwasi Martinez M.D. Dec 11, 2019 14:32
--- NOTE | 2019-12-11 14:37 | General Progress Note ---
Assessment/Plan Assessment/Plan: S: I am ok O: constant pain in both feet. PHYSICAL EXAMINATION:. HEAD AND NECK: multiple molars with plaques, Atraumatic and normocephalic. CHEST: Clear to auscultation. No wheezing. No crackles. HEART: S1 and S2. Regular rate and rhythm. No S3. No S4. ABDOMEN: Soft. No organomegaly.MUSCULOSKELETAL: Positive for bilater Charcot' s foot. Positive for stump of the prior tarsometatarsal resections. open wound in plantar aspect of left foot NEUROLOGIC: The patient is awake, alert, and oriented x3.PSYCHIATRIC: Mood and affect is normal LABORATORY DATA: Dated 12/11/2019 reviewed MRI: of both feet reviewed A/P: 1- ARF and dehydration 2. HyperKalemia 2- OM of left foot- likely chronic. 4. DM- uncontrolled 3. Non compliance with medications 3- Charcot Foot- Left sided 4- HTN 5- Psych Plan: Pending clearance by ID may continue management in SNIF Subjective Allergies: Coded Allergies: METFORMIN (Verified Allergy, Unknown, 10/09/18) Vomiting Objective Last 24 Hour Vital Signs Date Time Temp Pulse Resp B/P (MAP) Pulse Ox O2 Delivery O2 Flow Rate FiO2 12/11/19 12:00 97.6 66 19 120/76 (91) 96 12/11/19 10:02 67 20 97 Room Air 21 12/11/19 09:00 Room Air 12/11/19 08:47 60 155/87 12/11/19 08:00 97.9 60 19 155/87 (109) 97 12/11/19 05:40 98.4 12/11/19 04:02 98.4 69 16 158/88 (111) 99 12/11/19 00:30 98.6 12/11/19 00:08 98.6 73 12 153/82 (105) 97 12/10/19 20:16 Room Air 12/10/19 20:11 97.7 81 12 141/75 (97) 100 12/10/19 16:00 97.8 62 18 148/87 (107) 96 Intake and Output 12/10/19 12/11/19 18:59 06:59 Intake Total 945 ml 1260 ml Balance 945 ml 1260 ml Intake Oral 120 ml IV Total 825 ml 860 ml Other 400 ml # Voids 1 2 # Bowel Movements 1 Laboratory Tests 12/11/19 05:50: White Blood Count 4.5L, Red Blood Count 4.76, Hemoglobin 13.6L, Hematocrit 40.2L , Mean Corpuscular Volume 85, Mean Corpuscular Hemoglobin 28.6, Mean Corpuscular Hemoglobin Concent 33.8, Red Cell Distribution Width 13.1, Platelet Count 168, Mean Platelet Volume 6.1L, Neutrophils (%) (Auto) 67.9, Lymphocytes ( %) (Auto) 21.9, Monocytes (%) (Auto) 5.7, Eosinophils (%) (Auto) 3.8H, Basophils (%) (Auto) 0.7, Sodium Level 137, Potassium Level 4.4, Chloride Level 103, Carbon Dioxide Level 23, Anion Gap 11, Blood Urea Nitrogen 19H, Creatinine 1.9H, Estimat Glomerular Filtration Rate 37.6, Glucose Level 320#H, Uric Acid 4.9, Calcium Level 7.9L, Phosphorus Level 2.7, Magnesium Level 2.2, Total Bilirubin 0.2, Aspartate Amino Transf (AST/SGOT) 27, Alanine Aminotransferase ( ALT/SGPT) 40, Alkaline Phosphatase 66, C-Reactive Protein, Quantitative 2.3H, Pro-B-Type Natriuretic Peptide 448H, Total Protein 7.1, Albumin 3.2L, Globulin 3.9, Albumin/Globulin Ratio 0.8L Height (Feet): 5 Height (Inches): 11.00 Weight (Pounds): 208 Dexter Haas MD Dec 11, 2019 14:37
[2019-12-11 16:00] VITALS: BP 124/64
[2019-12-11] MEDS ORDERED: DAPTOmycin 600 MG in NS 55 ML IV SCH (18:00)
--- NOTE | 2019-12-11 19:00 | NUR ---
HAND-OFF: Report given to .IshmaelRN
[2019-12-11 20:00] VITALS: BP 152/80
[2019-12-11] MEDS ORDERED: Levemir Flexpen SUBQ SCH (21:00)
[2019-12-12] VITALS (7 sets, daily range): BP systolic 131–160; BP diastolic 77–96
[2019-12-12] MEDS: Meropenem 1 GM in NS 55 ML IVPB SCH ×2 (05:23→17:05)
[2019-12-12] MEDS: NovoLOG Insulin Flexpen SUBQ SCH ×6 (06:30→20:58)
--- NOTE | 2019-12-12 07:01 | General Progress Note ---
Assessment/Plan Problem List: (1) Foot ulcer due to secondary DM ICD Codes: E13.621 - Other specified diabetes mellitus with foot ulcer; L97.509 - Non-pressure chronic ulcer of other part of unspecified foot with unspecified severity SNOMED: 7684225, 545107765 (2) Diabetic nephropathy ICD Codes: E11.21 - Type 2 diabetes mellitus with diabetic nephropathy SNOMED: 09757429, 273692391 (3) Poorly controlled diabetes mellitus ICD Codes: E11.65 - Type 2 diabetes mellitus with hyperglycemia SNOMED: 63149167, 519119428 (4) MDD (major depressive disorder), recurrent episode, moderate ICD Codes: F33.1 - Major depressive disorder, recurrent, moderate SNOMED: 83472033, 641714394 Assessment/Plan: change Levemir to 30 units qam and 20 units qhs continue Novolog 6 units ac tid NISS ac / hs Subjective Allergies: Coded Allergies: METFORMIN (Verified Allergy, Unknown, 10/09/18) Vomiting Subjective events noted Item Value Date Time Bedside Blood Glucose 250 mg/dl H 12/12/19 0630 Bedside Blood Glucose 155 mg/dl H 12/11/19 2106 Bedside Blood Glucose 227 mg/dl H 12/11/19 1708 Bedside Blood Glucose 255 mg/dl H 12/11/19 1204 Bedside Blood Glucose 280 mg/dl H 12/11/19 0854 Objective Last 24 Hour Vital Signs Date Time Temp Pulse Resp B/P (MAP) Pulse Ox O2 Delivery O2 Flow Rate FiO2 12/12/19 05:23 160/96 12/12/19 04:40 98.7 82 20 160/96 (117) 96 12/12/19 00:00 97.7 77 19 152/80 (104) 96 12/11/19 21:00 Room Air 12/11/19 20:09 65 20 96 Room Air 21 12/11/19 20:00 97.7 77 19 152/80 (104) 96 12/11/19 18:22 62 124/64 12/11/19 16:00 97.9 62 19 124/64 (84) 96 12/11/19 12:00 97.6 66 19 120/76 (91) 96 12/11/19 10:02 67 20 97 Room Air 21 12/11/19 09:00 Room Air 12/11/19 08:47 60 155/87 12/11/19 08:00 97.9 60 19 155/87 (109) 97 Intake and Output 12/11/19 12/12/19 19:00 07:00 Intake Total 675 ml 300 ml Output Total 350 ml Balance 325 ml 300 ml Intake Oral 600 ml 300 ml IV Total 75 ml Output Urine Total 350 ml # Voids 3 2 Height (Feet): 5 Height (Inches): 11.00 Weight (Pounds): 208 General Appearance: no apparent distress Neck: normal alignment Cardiovascular: normal rate Respiratory/Chest: lungs clear Abdomen: normal bowel sounds Objective Current Medications Medications (Trade) Dose Ordered Sig/Aylin Route PRN Reason Start Time Stop Time Status Last Admin Dose Admin Acetaminophen (Tylenol) 650 mg Q4H PRN ORAL Mild Pain/Temp > 100.5 12/09/19 06:45 01/08/20 06:44 12/10/19 23:55 Acetaminophen/ Hydrocodone Bitart ([place] 10/325) 1 tab Q4H PRN ORAL Pain Scale (4-6) 12/09/19 08:45 12/16/19 08:44 Albuterol/ Ipratropium (Albuterol/ Ipratropium) 3 ml Q4H PRN HHN Shortness of Breath 12/09/19 06:30 12/14/19 06:29 Amlodipine Besylate (Norvasc) 5 mg BID ORAL 12/11/19 18:00 01/10/20 08:59 12/11/19 18:22 Bisacodyl (Dulcolax) 10 mg DAILYPRN PRN RECTAL Constipation 12/09/19 06:45 01/08/20 06:44 Calcium Carbonate (Tums) 500 mg THREE TIMES A DAY ORAL 12/10/19 13:00 01/09/20 12:59 12/11/19 08:46 Cetylpyridinium Chloride (Cepacol) 1 lozg Q6H PRN ORAL For Cough 12/09/19 06:50 01/08/20 06:49 12/11/19 20:31 Clonidine HCl (Catapres TTS-3) 1 patch QWEEK TDERMAL 12/09/19 14:00 01/08/20 13:59 12/09/19 14:09 Daptomycin 600 mg/ Sodium Chloride 55 ml @ 100 mls/hr Q24H IV 12/11/19 18:00 12/18/19 17:59 12/11/19 18:21 Dextrose (Dextrose 50%) 25 ml Q30M PRN IV Hypoglycemia 12/11/19 07:00 01/10/20 06:59 Dextrose (Dextrose 50%) 50 ml Q30M PRN IV Hypoglycemia 12/11/19 07:00 01/10/20 06:59 Docusate Sodium (Colace) 100 mg TID ORAL 12/09/19 13:00 01/08/20 08:59 Escitalopram Oxalate (Lexapro) 10 mg DAILY ORAL 12/09/19 09:00 01/08/20 08:59 12/11/19 08:47 Gabapentin (Neurontin) 300 mg TID ORAL 12/09/19 09:00 01/08/20 08:59 12/11/19 18:21 Heparin Sodium (Porcine) (Heparin 5000 units/ml) 5,000 units EVERY 12 HOURS SUBQ 12/09/19 09:00 01/08/20 08:59 12/10/19 21:22 Hydralazine HCl (Apresoline) 25 mg Q4H PRN ORAL SBP>160 12/09/19 06:45 01/08/20 06:44 12/12/19 05:23 Hydrogen Peroxide (Hydrogen Peroxide) 1 applic DAILY TOPIC 12/10/19 09:00 01/09/20 08:59 12/11/19 08:49 Insulin Aspart (NovoLOG) BEFORE MEALS AND HS SUBQ 12/09/19 07:00 01/08/20 06:59 12/11/19 21:05 Insulin Aspart (NovoLOG) 6 units NOVOTIAC SUBQ 12/11/19 06:30 01/10/20 06:29 12/11/19 20:50 Insulin Detemir (Levemir) 12 units BEDTIME SUBQ 12/11/19 21:00 01/10/20 20:59 12/11/19 21:06 Insulin Detemir (Levemir) 30 units DAILY SUBQ 12/11/19 09:00 01/08/20 09:59 12/11/19 08:54 Magnesium Hydroxide (Mom) 30 ml DAILYPRN PRN ORAL Constipation 12/09/19 06:45 01/08/20 06:44 Meropenem 1 gm/ Sodium Chloride 55 ml @ 110 mls/hr Q12H IVPB 12/09/19 17:00 12/14/19 16:59 12/12/19 05:23 Metoclopramide HCl (Reglan) 10 mg THREE TIMES A DAY ORAL 12/09/19 13:00 01/08/20 12:59 12/11/19 18:22 Morphine Sulfate (Morphine Sulfate) 2 mg Q8H PRN IVP Severe Pain (Pain Scale 7-10) 12/09/19 08:45 12/16/19 08:44 12/11/19 20:38 Ondansetron HCl (Zofran) 4 mg Q6H PRN IVP Nausea & Vomiting 12/09/19 10:30 01/08/20 10:29 12/11/19 05:09 Pantoprazole (Protonix) 40 mg EVERY 12 HOURS ORAL 12/10/19 21:00 01/09/20 20:59 12/11/19 20:31 Quetiapine Fumarate (SEROqueL) 100 mg TWICE A DAY ORAL 12/09/19 09:00 01/08/20 08:59 12/11/19 18:22 Vitamin D (Vitamin D) 3,000 intlu DAILY ORAL 12/11/19 09:37 01/10/20 09:36 12/11/19 10:45 Zolpidem Tartrate (Ambien) 5 mg HSPRN PRN ORAL Insomnia 12/11/19 12:15 12/18/19 12:14 Binh Borges MD Dec 12, 2019 07:01
--- NOTE | 2019-12-12 07:56 | NUR ---
NURSE NOTES: received report from PACO Hurd. patient in bed. alert. oriented. confused. verbally responsive. no respiratory distress noted. no pain at this time. dressing on both feet intact and dry. expecting bone scan on both feet today. contact isolation. PPE at all times. IV on right hand saline lock. intact. bed in the lowest position and locked. call light within reach. will continue to provide plan of care.
[2019-12-12] MEDS: Vitamin D 1000 IU Tab ORAL SCH (08:29)
[2019-12-12] MEDS: Docusate 100mg cap ORAL SCH ×3 (08:36→17:08)
[2019-12-12] MEDS: Tums 500mg ORAL SCH ×3 (08:36→17:08)
[2019-12-12] MEDS: Heparin 5000 units/ml inj SUBQ SCH ×2 (08:36→21:00)
[2019-12-12] MEDS: Levemir Flexpen SUBQ SCH (09:00)
[2019-12-12] MEDS: Hydrogen Peroxide 473ml Bottle TOPIC SCH (09:26)
--- NOTE | 2019-12-12 09:28 | NUR ---
NURSE NOTES: patient refused check blood sugar for Levemir at 0900 and refused to take insulin Levemir. explained risks and benefits.
--- NOTE | 2019-12-12 10:45 | General Progress Note ---
Assessment/Plan Assessment/Plan: S: I am ok O: constant pain in both feet. PHYSICAL EXAMINATION:. HEAD AND NECK: multiple molars with plaques, Atraumatic and normocephalic. CHEST: Clear to auscultation. No wheezing. No crackles. HEART: S1 and S2. Regular rate and rhythm. No S3. No S4. ABDOMEN: Soft. No organomegaly.MUSCULOSKELETAL: Positive for bilater Charcot' s foot. Positive for stump of the prior tarsometatarsal resections. open wound in plantar aspect of left foot NEUROLOGIC: The patient is awake, alert, and oriented x3.PSYCHIATRIC: Mood and affect is normal LABORATORY DATA: Dated 12/11/2019 reviewed MRI: of both feet reviewed A/P: 1- ARF and dehydration 2. HyperKalemia 2- OM of left foot- likely chronic. 4. DM- uncontrolled 3. Non compliance with medications 3- Charcot Foot- Left sided 4- HTN 5- Psych Plan: Pending clearance by ID may continue management in SNIF Subjective Allergies: Coded Allergies: METFORMIN (Verified Allergy, Unknown, 10/09/18) Vomiting Objective Last 24 Hour Vital Signs Date Time Temp Pulse Resp B/P (MAP) Pulse Ox O2 Delivery O2 Flow Rate FiO2 12/12/19 09:00 Room Air 12/12/19 08:30 66 159/86 12/12/19 08:25 64 18 97 Room Air 21 12/12/19 08:00 98.2 66 20 159/86 (110) 97 12/12/19 05:23 160/96 12/12/19 04:40 98.7 82 20 160/96 (117) 96 12/12/19 00:00 97.7 77 19 152/80 (104) 96 12/11/19 21:00 Room Air 12/11/19 20:09 65 20 96 Room Air 21 12/11/19 20:00 97.7 77 19 152/80 (104) 96 12/11/19 18:22 62 124/64 12/11/19 16:00 97.9 62 19 124/64 (84) 96 12/11/19 12:00 97.6 66 19 120/76 (91) 96 Intake and Output 12/11/19 12/12/19 19:00 07:00 Intake Total 675 ml 300 ml Output Total 350 ml Balance 325 ml 300 ml Intake Oral 600 ml 300 ml IV Total 75 ml Output Urine Total 350 ml # Voids 3 2 Height (Feet): 5 Height (Inches): 11.00 Weight (Pounds): 208 Dexter Haas MD Dec 12, 2019 10:45
[2019-12-12 11:34] LABS: BASOPHILS % (AUTO) 1.3 % (0.0-2.0); EOSINOPHILS % (AUTO) 3.9 % (0.0-3.0); HEMATOCRIT 41.6 % (42.0-52.0); HEMOGLOBIN 13.7 G/DL (14.2-18.0); LYMPHOCYTES % (AUTO) 27.7 % (20.0-45.0); MEAN CORPUSCULAR VOLUME 84 FL (80-99); MONOCYTES % (AUTO) 6.5 % (1.0-10.0); NEUTROPHILS % (AUTO) 60.6 % (45.0-75.0); PLATELET COUNT 182 K/UL (150-450); RED BLOOD COUNT 4.94 M/UL (4.70-6.10); RED CELL DISTRIBUTION WIDTH 12.8 % (11.6-14.8); WHITE BLOOD COUNT 4.3 K/UL (4.8-10.8)
--- NOTE | 2019-12-12 12:41 | Nephrology Progress Note ---
Assessment/Plan Problem List: (1) Renal failure (ARF), acute on chronic Assessment: Cr lowering (2) Diabetic nephropathy (3) Foot ulcer due to secondary DM (4) Hyperglycemia Assessment Acute on chronic renal failure- Diabetic Nephropathy DM OOC Anemia Electrolyte imbalance HTN EJ Fx 55% previously Kidney COOPER unremarkable previously Plan adjust BP meds- add hydralazine Protonix to PO Reglan Keep BP and BS in check avoid nephrotoxics monitor renal parameters Urine studies NS bolus as needed Subjective ROS Limited/Unobtainable: No Constitutional: Reports: malaise Objective Objective Last 24 Hour Vital Signs Date Time Temp Pulse Resp B/P (MAP) Pulse Ox O2 Delivery O2 Flow Rate FiO2 12/12/19 09:00 Room Air 12/12/19 08:30 66 159/86 12/12/19 08:25 64 18 97 Room Air 21 12/12/19 08:00 98.2 66 20 159/86 (110) 97 12/12/19 05:23 160/96 12/12/19 04:40 98.7 82 20 160/96 (117) 96 12/12/19 00:00 97.7 77 19 152/80 (104) 96 12/11/19 21:00 Room Air 12/11/19 20:09 65 20 96 Room Air 21 12/11/19 20:00 97.7 77 19 152/80 (104) 96 12/11/19 18:22 62 124/64 12/11/19 16:00 97.9 62 19 124/64 (84) 96 Intake and Output 12/11/19 12/12/19 19:00 07:00 Intake Total 675 ml 300 ml Output Total 350 ml Balance 325 ml 300 ml Intake Oral 600 ml 300 ml IV Total 75 ml Output Urine Total 350 ml # Voids 3 2 Current Medications Medications (Trade) Dose Ordered Sig/Aylin Route PRN Reason Start Time Stop Time Status Last Admin Dose Admin Acetaminophen (Tylenol) 650 mg Q4H PRN ORAL Mild Pain/Temp > 100.5 12/09/19 06:45 01/08/20 06:44 12/10/19 23:55 Acetaminophen/ Hydrocodone Bitart ([place] 10/325) 1 tab Q4H PRN ORAL Pain Scale (4-6) 12/09/19 08:45 12/16/19 08:44 Albuterol/ Ipratropium (Albuterol/ Ipratropium) 3 ml Q4H PRN HHN Shortness of Breath 12/09/19 06:30 12/14/19 06:29 Amlodipine Besylate (Norvasc) 5 mg BID ORAL 12/11/19 18:00 01/10/20 08:59 12/12/19 08:30 Bisacodyl (Dulcolax) 10 mg DAILYPRN PRN RECTAL Constipation 12/09/19 06:45 01/08/20 06:44 Calcium Carbonate (Tums) 500 mg THREE TIMES A DAY ORAL 12/10/19 13:00 01/09/20 12:59 12/11/19 08:46 Cetylpyridinium Chloride (Cepacol) 1 lozg Q6H PRN ORAL For Cough 12/09/19 06:50 01/08/20 06:49 12/12/19 09:26 Clonidine HCl (Catapres TTS-3) 1 patch QWEEK TDERMAL 12/09/19 14:00 01/08/20 13:59 12/09/19 14:09 Daptomycin 600 mg/ Sodium Chloride 55 ml @ 100 mls/hr Q24H IV 12/11/19 18:00 12/18/19 17:59 12/11/19 18:21 Dextrose (Dextrose 50%) 25 ml Q30M PRN IV Hypoglycemia 12/11/19 07:00 01/10/20 06:59 Dextrose (Dextrose 50%) 50 ml Q30M PRN IV Hypoglycemia 12/11/19 07:00 01/10/20 06:59 Docusate Sodium (Colace) 100 mg TID ORAL 12/09/19 13:00 01/08/20 08:59 Escitalopram Oxalate (Lexapro) 10 mg DAILY ORAL 12/09/19 09:00 01/08/20 08:59 12/12/19 08:30 Gabapentin (Neurontin) 300 mg TID ORAL 12/09/19 09:00 01/08/20 08:59 12/12/19 08:30 Heparin Sodium (Porcine) (Heparin 5000 units/ml) 5,000 units EVERY 12 HOURS SUBQ 12/09/19 09:00 01/08/20 08:59 12/10/19 21:22 Hydralazine HCl (Apresoline) 25 mg Q4H PRN ORAL SBP>160 12/09/19 06:45 01/08/20 06:44 12/12/19 05:23 Hydrogen Peroxide (Hydrogen Peroxide) 1 applic DAILY TOPIC 12/10/19 09:00 01/09/20 08:59 12/12/19 09:26 Insulin Aspart (NovoLOG) BEFORE MEALS AND HS SUBQ 12/09/19 07:00 01/08/20 06:59 12/12/19 11:52 Insulin Aspart (NovoLOG) 6 units NOVOTIAC SUBQ 12/11/19 06:30 01/10/20 06:29 12/12/19 11:53 Insulin Detemir (Levemir) 20 units BEDTIME SUBQ 12/12/19 21:00 01/10/20 20:59 Insulin Detemir (Levemir) 30 units DAILY SUBQ 12/11/19 09:00 01/08/20 09:59 12/11/19 08:54 Magnesium Hydroxide (Mom) 30 ml DAILYPRN PRN ORAL Constipation 12/09/19 06:45 01/08/20 06:44 Meropenem 1 gm/ Sodium Chloride 55 ml @ 110 mls/hr Q12H IVPB 12/09/19 17:00 12/14/19 16:59 12/12/19 05:23 Metoclopramide HCl (Reglan) 10 mg THREE TIMES A DAY ORAL 12/09/19 13:00 01/08/20 12:59 12/12/19 08:29 Morphine Sulfate (Morphine Sulfate) 2 mg Q8H PRN IVP Severe Pain (Pain Scale 7-10) 12/09/19 08:45 12/16/19 08:44 12/11/19 20:38 Ondansetron HCl (Zofran) 4 mg Q6H PRN IVP Nausea & Vomiting 12/09/19 10:30 01/08/20 10:29 12/11/19 05:09 Pantoprazole (Protonix) 40 mg EVERY 12 HOURS ORAL 12/10/19 21:00 01/09/20 20:59 12/12/19 08:30 Quetiapine Fumarate (SEROqueL) 100 mg TWICE A DAY ORAL 12/09/19 09:00 01/08/20 08:59 12/12/19 08:29 Vitamin D (Vitamin D) 3,000 intlu DAILY ORAL 12/11/19 09:37 01/10/20 09:36 12/12/19 08:29 Zolpidem Tartrate (Ambien) 5 mg HSPRN PRN ORAL Insomnia 12/11/19 12:15 12/18/19 12:14 Laboratory Tests 12/12/19 11:10: White Blood Count 4.3L, Red Blood Count 4.94, Hemoglobin 13.7L, Hematocrit 41.6L , Mean Corpuscular Volume 84, Mean Corpuscular Hemoglobin 27.7, Mean Corpuscular Hemoglobin Concent 32.9, Red Cell Distribution Width 12.8, Platelet Count 182, Mean Platelet Volume 5.5L, Neutrophils (%) (Auto) 60.6, Lymphocytes ( %) (Auto) 27.7, Monocytes (%) (Auto) 6.5, Eosinophils (%) (Auto) 3.9H, Basophils (%) (Auto) 1.3 Height (Feet): 5 Height (Inches): 11.00 Weight (Pounds): 208 General Appearance: no apparent distress Cardiovascular: normal rate Respiratory/Chest: decreased breath sounds Abdomen: soft Objective no change Ernesto Frost MD Dec 12, 2019 12:41
--- NOTE | 2019-12-12 12:50 | NUR ---
NURSE NOTES: patient refused to take Reglan, colace, and Tums. patient said that he does not need colace d/t had BM on the . He also said that Reglan and tums would not work properly. explained risks and benefits. will continue to monitor patient's condition.
--- NOTE | 2019-12-12 12:52 | NUR ---
NM 3 Phase Bone Scan complete.
[2019-12-12] MEDS: HydrALAZINE 25mg tab ORAL SCH ×2 (13:51→20:57)
--- NOTE | 2019-12-12 15:36 | Diagnostic Imaging Report ---
Indication: Cellulitis Technique: 25.4 mCi of technetium 99 M-MDP was injected intravenously. A triple phase bone scan was then performed with blood flow, blood pool and delayed planar imaging in the region of interest. Several spot images were also obtained. Comparison: None Findings: . Blood flow images show increased activity within portions of both feet. On the right there is increased activity within midfoot. On the left side there is increased activity within the plantar part of the midfoot. Some blood pool activity also sustained. On delayed planar images there is increased uptake in a generalized fashion within the right midfoot. In the left foot, there is moderate focal uptake within the plantar part of the midfoot. Plain film examinations performed 12/11/2019 show neuropathic disease. There is good anatomic correlation between the plain film demonstration of neuropathic disease and the findings on the current bone scan evaluation. Impression: Increased blood flow, hyperemia and moderate increased bone uptake within portions of the midfoot bilaterally. The findings are most likely on the basis of Charcot foot (neuropathic disease). In such a setting, it is difficult to exclude superimposed osteomyelitis if there is clinical concern for this within the same anatomic location. One could obtain directed MRI in the regions of clinical interest i.e. the location of cutaneous ulcers within areas of active clinical infection.
[2019-12-12] MEDS ORDERED: MEROPENEM1 GM IV (15:47)
--- NOTE | 2019-12-12 15:52 | NUR ---
NURSE NOTES: received order from . Discharge patient back to [facility] with shelter medications. New order of continue Meropenem IV 1gm [id number] for 2weeks. order noted and carried out.
--- NOTE | 2019-12-12 17:18 | NUR ---
CASE MANAGEMENT:DISCHARGE NOTE PATIENT ACCEPTED TO RETURN TO [facility] [address] [place] [address] FOR NURSE TO NURSE REPORT BLS AMBULANCE TRANSPORT WITH [facility] EXT [id number] YASHIR[address] FATIMA @ 1900 Addendum: 12/12/19 at 1724 by FLORIAN PAK LVN LVN 206 A CORRECTION
--- NOTE | 2019-12-12 18:00 | NUR ---
NURSE NOTES: patient cleared by KERI Martinez.
--- NOTE | 2019-12-12 18:05 | NUR ---
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
--- NOTE | 2019-12-12 18:30 | NUR ---
NURSE NOTES: checked and counted belongings with patient but patient refused to sign on the paper.
--- NOTE | 2019-12-12 19:33 | NUR ---
HAND-OFF: Report given to PACO Mosher. Addendum: 12/12/19 at 1934 by JP ANDERSEN RN HAND-OFF: Report given to PACO Dunham.
--- NOTE | 2019-12-12 19:58 | Infectious Diseases Prog Note ---
Assessment/Plan Problems: (1) Osteomyelitis of foot Assessment & Plan: was ruled out in the left foot , unclear whether he has it in the right foot and MRI couldn't rule out out , with bone scan showed increased uptake in the midfoot area matching the diabetic wound he has , and wound culture grew ESBL producing klebsiella Pneumonia and proteus mirabilis , will recommend meropenem treatment for four weeks for his foot possible osteomyelitis , with close follow up with [facility] . keep wounds clean and dry . weekly labs while on meropenem (2) Poorly controlled diabetes mellitus Assessment & Plan: recommend tight glycemic control to keep blood glucose between 100-140 (3) Foot ulcer due to secondary DM Assessment & Plan: with no evidence of underlying osteomyelitis at least on the left side . and couldn't rule out osteomyelitis on bone scan either which showed increased uptake matching his diabetic foot wound location , concerning for osteomyelitis on the right side , will treat with meropenem for four weeks , further care as per [facility] . Subjective Constitutional: Reports: no symptoms HEENT: Reports: no symptoms Respiratory: Reports: no symptoms Breasts: Reports: no symptoms Cardiovascular: Reports: no symptoms Gastrointestinal/Abdominal: Reports: no symptoms Genitourinary: Reports: no symptoms Neurologic: Reports: no symptoms Psychiatric: Reports: no symptoms Skin: Reports: no symptoms Endocrine: Reports: no symptoms Hematologic: Reports: no symptoms Musculoskeletal: Reports: no symptoms Allergies: Coded Allergies: METFORMIN (Verified Allergy, Unknown, 10/09/18) Vomiting Subjective He was feeling better , was able to eat , no fever or chills, no draining from his feet wounds Objective Vital Signs Last 24 Hour Vital Signs Date Time Temp Pulse Resp B/P (MAP) Pulse Ox O2 Delivery O2 Flow Rate FiO2 12/12/19 17:05 66 131/79 12/12/19 16:00 98.4 66 20 131/79 (96) 97 12/12/19 13:51 127/75 12/12/19 12:00 97.7 64 20 135/77 (96) 95 12/12/19 09:00 Room Air 12/12/19 08:30 66 159/86 12/12/19 08:25 64 18 97 Room Air 21 12/12/19 08:00 98.2 66 20 159/86 (110) 97 12/12/19 05:23 160/96 12/12/19 04:40 98.7 82 20 160/96 (117) 96 12/12/19 00:00 97.7 77 19 152/80 (104) 96 12/11/19 21:00 Room Air 12/11/19 20:09 65 20 96 Room Air 21 12/11/19 20:00 97.7 77 19 152/80 (104) 96 Height (Feet): 5 Height (Inches): 11.00 Weight (Pounds): 208 General Appearance: WD/WN, no acute distress HEENT: normocephalic, atraumatic, anicteric, mucous membranes moist, PERRL Respiratory/Chest: chest wall non-tender, lungs clear, normal breath sounds, no respiratory distress, no accessory muscle use Cardiovascular: normal peripheral pulses, normal rate, regular rhythm, no gallop/murmur, no JVD Abdomen: normal bowel sounds, soft, non tender, no organomegaly, non distended , no mass, no scars Genitourinary: normal external genitalia Extremities: no cyanosis, no clubbing Skin: no rash, no lesions, ulcers - in both midfeet Neurologic/Psychiatric: hospitality aide II-XII grossly normal, alert, oriented x 3, responsive Lymphatic: no neck adenopathy, no groin adenopathy Musculoskeletal: normal muscle bulk, no effusion Laboratory Tests Test 12/12/19 11:10 White Blood Count 4.3 K/UL (4.8-10.8) L Red Blood Count 4.94 M/UL (4.70-6.10) Hemoglobin 13.7 G/DL (14.2-18.0) L Hematocrit 41.6 % (42.0-52.0) L Mean Corpuscular Volume 84 FL (80-99) Mean Corpuscular Hemoglobin 27.7 PG (27.0-31.0) Mean Corpuscular Hemoglobin Concent 32.9 G/DL (32.0-36.0) Red Cell Distribution Width 12.8 % (11.6-14.8) Platelet Count 182 K/UL (150-450) Mean Platelet Volume 5.5 FL (6.5-10.1) L Neutrophils (%) (Auto) 60.6 % (45.0-75.0) Lymphocytes (%) (Auto) 27.7 % (20.0-45.0) Monocytes (%) (Auto) 6.5 % (1.0-10.0) Eosinophils (%) (Auto) 3.9 % (0.0-3.0) H Basophils (%) (Auto) 1.3 % (0.0-2.0) Current Medications Medications (Trade) Dose Ordered Sig/Aylin Route PRN Reason Start Time Stop Time Status Last Admin Dose Admin Acetaminophen (Tylenol) 650 mg Q4H PRN ORAL Mild Pain/Temp > 100.5 12/09/19 06:45 01/08/20 06:44 12/10/19 23:55 Acetaminophen/ Hydrocodone Bitart ([place] 10/325) 1 tab Q4H PRN ORAL Pain Scale (4-6) 12/09/19 08:45 12/16/19 08:44 Albuterol/ Ipratropium (Albuterol/ Ipratropium) 3 ml Q4H PRN HHN Shortness of Breath 12/09/19 06:30 12/14/19 06:29 Amlodipine Besylate (Norvasc) 5 mg BID ORAL 12/11/19 18:00 01/10/20 08:59 12/12/19 17:05 Bisacodyl (Dulcolax) 10 mg DAILYPRN PRN RECTAL Constipation 12/09/19 06:45 01/08/20 06:44 Calcium Carbonate (Tums) 500 mg THREE TIMES A DAY ORAL 12/10/19 13:00 01/09/20 12:59 12/11/19 08:46 Cetylpyridinium Chloride (Cepacol) 1 lozg Q6H PRN ORAL For Cough 12/09/19 06:50 01/08/20 06:49 12/12/19 09:26 Clonidine HCl (Catapres TTS-3) 1 patch QWEEK TDERMAL 12/09/19 14:00 01/08/20 13:59 12/09/19 14:09 Dextrose (Dextrose 50%) 25 ml Q30M PRN IV Hypoglycemia 12/11/19 07:00 01/10/20 06:59 Dextrose (Dextrose 50%) 50 ml Q30M PRN IV Hypoglycemia 12/11/19 07:00 01/10/20 06:59 Docusate Sodium (Colace) 100 mg TID ORAL 12/09/19 13:00 01/08/20 08:59 Escitalopram Oxalate (Lexapro) 10 mg DAILY ORAL 12/09/19 09:00 01/08/20 08:59 12/12/19 08:30 Gabapentin (Neurontin) 300 mg TID ORAL 12/09/19 09:00 01/08/20 08:59 12/12/19 17:09 Heparin Sodium (Porcine) (Heparin 5000 units/ml) 5,000 units EVERY 12 HOURS SUBQ 12/09/19 09:00 01/08/20 08:59 12/10/19 21:22 Hydralazine HCl (Apresoline) 25 mg Q4H PRN ORAL SBP>160 12/09/19 06:45 01/08/20 06:44 12/12/19 05:23 Hydralazine HCl (Apresoline) 25 mg Q8HR ORAL 12/12/19 14:00 01/11/20 13:59 12/12/19 13:51 Hydrogen Peroxide (Hydrogen Peroxide) 1 applic DAILY TOPIC 12/10/19 09:00 01/09/20 08:59 12/12/19 09:26 Insulin Aspart (NovoLOG) BEFORE MEALS AND HS SUBQ 12/09/19 07:00 01/08/20 06:59 12/12/19 16:59 Insulin Aspart (NovoLOG) 6 units NOVOTIAC SUBQ 12/11/19 06:30 01/10/20 06:29 12/12/19 17:00 Insulin Detemir (Levemir) 20 units BEDTIME SUBQ 12/12/19 21:00 01/10/20 20:59 Insulin Detemir (Levemir) 30 units DAILY SUBQ 12/11/19 09:00 01/08/20 09:59 12/11/19 08:54 Magnesium Hydroxide (Mom) 30 ml DAILYPRN PRN ORAL Constipation 12/09/19 06:45 01/08/20 06:44 Meropenem 1 gm/ Sodium Chloride 55 ml @ 110 mls/hr Q12H IVPB 12/09/19 17:00 12/14/19 16:59 12/12/19 17:05 Metoclopramide HCl (Reglan) 5 mg THREE TIMES A DAY ORAL 12/12/19 13:00 01/08/20 12:59 12/12/19 17:05 Morphine Sulfate (Morphine Sulfate) 2 mg Q8H PRN IVP Severe Pain (Pain Scale 7-10) 12/09/19 08:45 12/16/19 08:44 12/11/19 20:38 Ondansetron HCl (Zofran) 4 mg Q6H PRN IVP Nausea & Vomiting 12/09/19 10:30 01/08/20 10:29 12/11/19 05:09 Pantoprazole (Protonix) 40 mg EVERY 12 HOURS ORAL 12/10/19 21:00 01/09/20 20:59 12/12/19 08:30 Quetiapine Fumarate (SEROqueL) 100 mg TWICE A DAY ORAL 12/09/19 09:00 01/08/20 08:59 12/12/19 17:09 Vitamin D (Vitamin D) 3,000 intlu DAILY ORAL 12/11/19 09:37 01/10/20 09:36 12/12/19 08:29 Zolpidem Tartrate (Ambien) 5 mg HSPRN PRN ORAL Insomnia 12/11/19 12:15 12/18/19 12:14 Kwasi Martinez M.D. Dec 12, 2019 19:58
--- NOTE | 2019-12-12 20:15 | NUR ---
NURSE NOTES: Pt is in bed, awake and alert. No acute distress noted. Vitas stable. Pt able to move around the room in a wheelchair. Pt is to be discharged to [facility], Discharge assessment and discharge instructions completed by day shift nurse Catalino,PACO. Transfer report was given to Anaya garza at the facility by Ashly,PACO. 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 Pt's left foot dressing changed, pt refused to have picture taken of the wound. Pt asked to call for assistance before getting out of bed. Bed locked low in position,side rails up and call light within reach. Fall precaution in place.
[2019-12-12] MEDS: Morphine Sulfate 2mg/ml Inj(IV/IM USE ONLY) IVP PRN (20:57)
[2019-12-12] MEDS ORDERED: Levemir Flexpen SUBQ SCH (21:00)
--- NOTE | 2019-12-12 21:30 | NUR ---
NURSE NOTES: Pt discharged to [facility] via [facility] ambulance. During discharge, patient is awake and alert. Vitals stable. Discharge instructions and discharge packet forwarded to SNF with ambulance personnel. Patient acknowledged all belongings and signed the belonging sheet. ID band removed, IV access kept for IV antibiotics at SNF.
--- NOTE | 2019-12-14 10:35 | Discharge Summary ---
Discharge Summary Discharge Summary _ DATE OF ADMISSION: 12/09/2019 DATE OF DISCHARGE: 12/12/2019 DISCHARGED BY: Dr. Dexter Haas CONSULTANTS: Dr. Kwasi Mccray BRIEF HOSPITAL COURSE: Patient is a 49-year-old male, with history of diabetes with Charcot foot, who was referred from custodial facility for concern of sepsis. Patient had been vomiting for the last couple of days. Patient was reported to be noncompliant with diet. Had reportedly over stayed out on pass in multiple occasions. He is being treated for osteomyelitis. PICC line was inserted a week prior. Upon evaluation at ED, vital signs were stable. Blood work did not show any leukocytosis. Lactic acid was elevated to 3.2. Potassium 5.9. BUN was 38 and creatinine elevated to 3.4. Glucose level 373. There was no evidence of DKA. Chest x-ray did not show any acute process. He was admitted for evaluation of acute renal failure, hyperkalemia and cellulitis. He was seen by podiatry. Ulceration was noted to be stable. He had ulcerations on bilateral midfoot subtarsal area. No drainage, discharge, pus or malodor. Ulceration noted to be 2 cm x 0.5 cm in diameter. He was given local wound care. He was started on daptomycin and meropenem by ID. Kidney function was monitored. Patient has history of diabetes mellitus with diabetic nephropathy. Previous echocardiogram showed EF 55%. Previous kidney ultrasound was unremarkable. He was given IV Protonix. He was given Reglan for nausea and vomiting. 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 Blood glucose monitored. NovoLog and Levemir doses were adjusted. Hemoglobin A1c 11.6. Vascular consultation was done. Patient had absent dorsalis pedis. Patient had palpable 3+ posterior tibial pulses with adequate perfusion in the 2 bilateral foot wound ulcerations. Left worse than right with clinical osteomyelitis. Osteomyelitis on the left foot was ruled out. Unclear whether right foot had osteomyelitis as MRI could not rule it out. Bone scan ordered showed increased uptake in the midfoot area. Wound culture grew ESBL producing Klebsiella pneumonia and Proteus mirabilis. Per ID, patient would need meropenem treatment for 4 weeks. Check weekly labs while on meropenem. Patient was [facility] back to [facility]. FINAL DIAGNOSES: Possible right foot osteomyelitis Uncontrolled diabetes mellitus with diabetic nephropathy Foot ulcer secondary to diabetes. Acute on chronic renal failure Anemia Hypertension Hyperkalemia Left foot Charcot foot Noncompliance with medications DISPOSITION: Patient was discharged to a SNF. DISCHARGE MEDICATIONS: Refer to Discharge Medication List. I have been assigned to complete a discharge summary on this account, I was not involved with the patient's management.--SOFI Hill Jacqueline Robles NP Dec 14, 2019 10:35
== END 2019-12-12 21:30 | DRG 638 ==
LOC: EDBD 01:50 → EMR 02:32 → 4E 03:24 → EDBEDREQ 04:14
DX: E11.69 Type 2 diabetes mellitus with other specified complication (principal); M86.171 Other acute osteomyelitis, right ankle and foot; L03.116 Cellulitis of left lower limb; F33.1 Major depressive disorder, recurrent, moderate; Z16.12 Extended spectrum beta lactamase (ESBL) resistance; N17.9 Acute kidney failure, unspecified; E11.621 Type 2 diabetes mellitus with foot ulcer; E11.65 Type 2 diabetes mellitus with hyperglycemia; E11.22 Type 2 diabetes mellitus with diabetic chronic kidney disease; N18.9 Chronic kidney disease, unspecified; Z91.14 Patient's other noncompliance with medication regimen; E11.610 Type 2 diabetes mellitus with diabetic neuropathic arthropathy; Z79.4 Long term (current) use of insulin; Z88.8 Allergy status to other drugs, medicaments and biological substances; Z91.11 Patient's noncompliance with dietary regimen; E87.5 Hyperkalemia; E11.21 Type 2 diabetes mellitus with diabetic nephropathy; E11.319 Type 2 diabetes mellitus with unspecified diabetic retinopathy without macular edema; E11.40 Type 2 diabetes mellitus with diabetic neuropathy, unspecified; B96.1 Klebsiella pneumoniae [K. pneumoniae] as the cause of diseases classified elsewhere; B96.89 Other specified bacterial agents as the cause of diseases classified elsewhere
CPT/HCPCS: 36415; 71045; 78315; 80053; 80061; 81003; 82009; 82550; 82962; 82977; 83036; 83605; 83735; 83880; 84100; 84132; 84300; 84443; 84484; 84550; 85025; 85651; 86140; 87040; 87070; 87081; 87181; 87205; 93306; 93925; 94664; 96361; 96365; 96375; 96376; 99285; J1815; J2405; J7030; J7620; S5561